=== PATIENT | male | born 1970 | race Caucasian/White ===

== ENCOUNTER 2020-05-25 13:36 | Emergency (ER) | payer OTHER, SELFPAY ==
[2020-05-25] VITALS (28 sets, daily range): BP systolic 125–184; BP diastolic 77–118; PULSE 88–129; RESP 0–20; TEMP 36.7; O2SAT 93–99
--- NOTE | ~2020-05-25 | XR_ITS ---
EXAMINATION: XR chest 1V portable DATE: 05/25/2020 14:09 INDICATION: Chest pain. TECHNIQUE: A single frontal view of the chest was obtained. COMPARISON: Chest 2 views 06/12/2019, chest CT 09/16/2017 FINDINGS: The chest demonstrates clear lungs without pneumonia, pleural effusion, or pneumothorax. Th e heart size is normal. IMPRESSION: 1. No acute cardiopulmonary disease. Reviewed, dictated and finalized at location A.
--- NOTE | ~2020-05-25 | CT_ITS ---
EXAMINATION: CTA chest PE protocol DATE: 05/25/2020 15:26 INDICATION: Chest pain. TECHNIQUE: Computed tomography (CT) pulmonary angiogram of the chest was performed with 100 mL Omnipa que-350 intravenous contrast. Additional 3D reconstructions utilizing coronal maximum intensity proje ction (MIP) were performed. Automated exposure control and iterative reconstruction technique were em ployed. The dose-length product was 683.65 mGy-cm. COMPARISON: 09/16/2017 FINDINGS: There is mild streak artifact from dense contrast in the superior vena cava, right atrium and some of the more densely opacified pulmonary veins, the latter resulting in streak artifact at the bifurcati ons of the left and right pulmonary arteries. Mild scattered respiratory motion artifact. Suboptimal contrast opacification of the pulmonary arteries which significantly decreases sensitivity in the seg mental and subsegmental pulmonary arteries. No central pulmonary embolism through the lobar pulmonary arteries. Small calcified nodule at the right lower lobe along with a couple small calcified right h ilar and mediastinal lymph nodes and a few splenic calcifications, all consistent with old granulomat ous disease. No pneumonia, pulmonary edema, pleural effusion or pneumothorax. Heart size is normal. A therosclerotic coronary artery calcification. No pericardial effusion. Thoracic aorta is normal in ca liber with no dissection. No pathologically enlarged thoracic lymphadenopathy. Likely benign 6 mm hyp odense right thyroid nodule. 2.8 cm right renal cyst. Diffuse hepatic steatosis. Moderate thoracic sp ondylosis. IMPRESSION: 1. No central pulmonary embolism through the lobar pulmonary arteries. More peripheral evaluation is limited by suboptimal contrast opacification. 2. Diffuse hepatic steatosis. Reviewed, dictated and finalized at location B. IMPRESSION: 1. No central pulmonary embolism through the lobar pulmonary arteries. More per ipheral evaluation is limited by suboptimal contrast opacification. 2. Diffuse hepatic steatosis.
--- NOTE | 2020-05-25 13:43 | ECG_ITS ---
Measurements Intervals [place] Rate: 125 P: 53 CT: 153 QRS: 15 QRSD: 90 T: 33 QT: 308 QTc: 444 Interpretive Statements SINUS TACHYCARDIA DELAYED PRECORDIAL R/S TRANSITION ABNORMAL ECG Electronically Signed On 05-25-2020 14:12:42 CDT by Ed Kulkarni D.O.
--- NOTE | 2020-05-25 13:44 | ED.GENADULT ---
HPI - General Adult General Chief complaint: Alcohol Stated complaint: concerned having sz Source: patient History of Present Illness HPI narrative: Patient is a 50 y/o male complaining midsternal chest pain starting approximately 30 minutes ago. He describes his pain as throbbing and rates it as 7/10. His pain radiates to left arm. There is no known alleviating or exacerbating factor. He has some dizziness, but denies passing out. He admit that he has been drinking heavily. He is concerned about possible withdrawal. Related Data Home Medications Medication Instructions Recorded Confirmed bupropion HCl 150 mg PO BID 06/12/19 06/12/19 quetiapine 400 mg PO HS 06/12/19 06/12/19 Allergies Allergy/AdvReac Type Severity Reaction Status Date / Time Penicillins Allergy Unknown Verified 06/12/19 00:50 Review of Systems Constitutional: Constitutional: Denies chills, Denies fever(s), Denies headache(s) and Denies weakness Eyes: Eyes: Denies blurry vision ENT: Denies headache(s) and Denies neck pain Cardiovascular: Cardiovascular: Reports chest pain and Denies dyspnea Respiratory: Respiratory: Denies cough and Denies dyspnea Gastrointestinal: Gastrointestinal: Denies abdominal pain, Denies diarrhea, Denies nausea and Denies vomiting Genitourinary: Genitourinary: Denies hematuria and Denies dysuria Musculoskeletal: Musculoskeletal: Denies back pain and Denies neck pain Neurologic: Reports dizziness, Denies headache(s) and Denies weakness PMFSH Past Medical History Medical History Alcohol withdrawal seizure Anxiety Depression HTN (hypertension) with goal to be determined Seasonal allergies Surgical History Surgical History H/O adenoidectomy History of appendectomy History of tonsillectomy Family History Family History Father Heart disease Mother Heart disease Social History Social History Smoking packs per day: 0.5 Smoking cigarettes per day: 10.0 Smoking status: Current every day smoker Alcohol intake: current Substance use: never Exam Const: General: no acute distress and well developed Orientation/consciousness: oriented to person, oriented to place, oriented to time and patient oriented x3 HENMT: Head: normocephalic Ears: external ears normal General nose exam: Normal external nose present Eyes: General: appearance normal, both eyes and all related structures Conjunctivae: conjunctivae normal Neck: Neck: normal visual inspection and full ROM Chest: Chest palpation & inspection: normal inspection of the chest and no tenderness Resp: Effort & Inspection: normal respiratory effort Auscultation: clear to auscultation bilaterally Cardio: Rate: tachycardic Rhythm: regular rhythm GI: GI Palp: No abdominal tenderness and Yes Soft to palpation Skin: General skin exam: normal color and turgor normal Neuro: General: oriented to person, oriented to place, oriented to time and patient oriented x3 Cognition (Neuro): normal cognition Extrem: General: normal to inspection, full ROM and no pedal edema Psych: Appearance: grossly normal Mental Status: mental status grossly normal Affect: Anxious affect present Course Vital Signs Vital signs: Vital Signs Temperature 36.7 C 05/25/20 13:41 Pulse Rate 126 H 05/25/20 13:41 Respiratory Rate 18 05/25/20 13:41 Blood Pressure 167/118 H 05/25/20 13:41 Pulse Oximetry 94 05/25/20 13:41 Temperature 36.7 C 05/25/20 13:41 Pulse Rate 88 05/25/20 18:57 Respiratory Rate 14 05/25/20 18:57 Blood Pressure 152/87 H 05/25/20 18:57 Pulse Oximetry 99 05/25/20 18:57 Medical Decision Making Vital Signs Vital Signs: Vital Signs Temperature 36.7 C 05/25/20 13:41 Pulse Rate 126 H 05/25/20 13:41 Respirato
[2020-05-25 14:06] LABS: Basophils Absolute Auto 0.1 K/mm3 (0.0-0.1); Basophils Percent Auto 1.2 % (0.2-1.2); Eosinophils Percent Auto 0.2 % (0-4.4); Hematocrit 49.9 % (42.0-52.0); Hemoglobin 17.1 g/dL (14.0-18.0); Immature Granulocyte Absolute 0.05 K/mm3 (0.00-0.031); Immature Granulocyte Percent A 0.4 % (0-0.5); Lymphocytes Absolute Auto 2.42 K/mm3 (0.9-3.2); Lymphocytes Percent Auto 21.5 % (18.3-44.2); Mean Corpuscular HGB Conc 34.3 g/dl (32-36); Mean Corpuscular Hemoglobin 33.7 pg (26-34); Mean Corpuscular Volume 98.4 fl (80-100); Mean Platelet Volume 11.2 fl (7.4-10.4); Monocytes Absolute Auto 0.9 K/mm3 (0.1-0.6); Monocytes Percent Auto 8.1 % (2.6-8.5); Neutrophils Absolute Auto 7.8 K/mm3 (1.3-6.7); Neutrophils Percent Auto 68.6 % (45.5-73.1); Platelet Count Result 320 k/mm3 (150-375); Red Blood Count 5.07 M/mm3 (4.6-6.20); Red Cell Distribution Width 12.2 % (11.5-14.5); White Blood Count 11.3 K/mm3 (4.5-10.0)
[2020-05-25] MEDS: chlordiazePOXIDE (*CRX) 25 MG CAPSULE PO (14:12)
[2020-05-25 14:15] LABS: Alanine Aminotransferase 98 U/L (4-50); Albumin Level 5.2 g/dL (3.5-5.1); Alkaline Phosphatase 87 U/L (38-126); Anion Gap 18 mmol/L (8-16); Aspartate Amino Transferase 101 U/L (17-59); Bilirubin,Total 0.6 mg/dL (0.2-1.3); Blood Urea Nitrogen 10 mg/dL (9-20); Calcium 9.6 mg/dL (8.4-10.2); Carbon Dioxide 25 mmol/L (22-30); Chloride 101 mmol/L (98-107); Estimated CRCL calculation 126 ml/min; Estimated Glomerular Filt Rate > 60; Glucose 182 mg/dL (75-110); Potassium 3.7 mmol/L (3.4-5.0); Sodium 144 mmol/L (137-145)
[2020-05-25 14:16] LABS: D Dimer 0.82 ug/mL (<0.48); Ethanol 264 mg/dL (<10)
[2020-05-25 14:27] LABS: Troponin I < 0.012 ng/mL (0.000-0.034)
[2020-05-25 17:26] LABS: Troponin I < 0.012 ng/mL (0.000-0.034)
[2020-05-25] MEDS: cloNIDine HCL 0.1 MG TABLET PO (17:31)
[2020-05-25] MEDS: LABETALOL HCL INJ 100 MG/20 ML VIAL 20 MG IV PUSH (18:27)
== END 2020-05-25 19:00 | disposition home or self-care (01) ==
PROVIDERS: Emergency Provider Emergency Medicine
DX: R07.9 Chest pain, unspecified (principal); F10.239 Alcohol dependence with withdrawal, unspecified; R00.0 Tachycardia, unspecified; F41.9 Anxiety disorder, unspecified; F32.9 Major depressive disorder, single episode, unspecified; I10 Essential (primary) hypertension; Y90.8 Blood alcohol level of 240 mg/100 ml or more; F17.210 Nicotine dependence, cigarettes, uncomplicated
CPT/HCPCS: 36415; 71045; 71275; 80053; 80307; 84484; 85025; 85380; 93005; 96374; 99284; A9270; Q9967

== ENCOUNTER 2020-05-28 13:26 | Emergency (ER) | payer OTHER, SELFPAY ==
--- NOTE | ~2020-05-28 | XR_ITS ---
EXAMINATION: XR chest 2V DATE: 05/28/2020 14:18 INDICATION: Chest pain. TECHNIQUE: Frontal and lateral views of the chest were obtained. COMPARISON: Chest single view 05/25/2020, chest CT 05/25/2020 FINDINGS: The chest demonstrates clear lungs without pneumonia, pleural effusion, or pneumothorax. Th e heart size is normal. IMPRESSION: 1. No acute cardiopulmonary disease. Reviewed, dictated and finalized at location A.
--- NOTE | 2020-05-28 13:36 | ECG_ITS ---
Measurements Intervals [place] Rate: 128 P: 39 [place]: 142 QRS: 18 QRSD: 89 T: 30 QT: 308 QTc: 450 Interpretive Statements SINUS TACHYCARDIA DELAYED PRECORDIAL R/S TRANSITION ABNORMAL ECG Electronically Signed On 05-28-2020 13:50:30 CDT by Ed Kulkarni D.O.
[2020-05-28] MEDS: BELLADONNA ALK/PHENOB ELIX 10 ML, MAG HYDROX/ALUMINUM HYD/SIMETH 30 ML, LIDOCAINE HCL 2... PO (13:51)
[2020-05-28 14:06] VITALS: BP 136/67; PULSE 70; RESP 17; TEMP 37; O2SAT 100
[2020-05-28] MEDS: SODIUM CHLORIDE 0.9% IV 1,000 ML 999 ML IV CONT (14:12)
--- NOTE | 2020-05-28 15:04 | PC.NURSE ---
2 ED techs attempted to draw pts blood . LAb was notified and states that it will be awhile . Informed charge nurse Francesca of this.
[2020-05-28 15:23] LABS: Basophils Absolute Auto 0.1 K/mm3 (0.0-0.1); Basophils Percent Auto 1.2 % (0.2-1.2); Eosinophils Absolute Auto 0.1 K/mm3 (0-0.3); Hematocrit 47.9 % (42.0-52.0); Hemoglobin 16.6 g/dL (14.0-18.0); Immature Granulocyte Absolute 0.04 K/mm3 (0.00-0.031); Immature Granulocyte Percent A 0.4 % (0-0.5); Lymphocytes Absolute Auto 2.54 K/mm3 (0.9-3.2); Lymphocytes Percent Auto 24.1 % (18.3-44.2); Mean Corpuscular HGB Conc 34.7 g/dl (32-36); Mean Corpuscular Hemoglobin 33.3 pg (26-34); Mean Platelet Volume 10.5 fl (7.4-10.4); Monocytes Percent Auto 9.2 % (2.6-8.5); Neutrophils Absolute Auto 6.7 K/mm3 (1.3-6.7); Neutrophils Percent Auto 64.1 % (45.5-73.1); Platelet Count Result 256 k/mm3 (150-375); Red Blood Count 4.99 M/mm3 (4.6-6.20); Red Cell Distribution Width 11.9 % (11.5-14.5); White Blood Count 10.5 K/mm3 (4.5-10.0)
[2020-05-28 15:33] LABS: INR 0.9
[2020-05-28 15:34] LABS: Partial Thromboplastin Time 25.1 SECONDS (22.3-36.8)
[2020-05-28 15:35] LABS: Alanine Aminotransferase 120 U/L (4-50); Albumin Level 4.9 g/dL (3.5-5.1); Alkaline Phosphatase 95 U/L (38-126); Anion Gap 19 mmol/L (8-16); Aspartate Amino Transferase 118 U/L (17-59); Bilirubin,Total 0.5 mg/dL (0.2-1.3); Blood Urea Nitrogen 9 mg/dL (9-20); Carbon Dioxide 28 mmol/L (22-30); Chloride 94 mmol/L (98-107); Estimated CRCL calculation 114 ml/min; Estimated Glomerular Filt Rate > 60; Glucose 92 mg/dL (75-110); Lipase 46 U/L (23-300); Potassium 3.4 mmol/L (3.4-5.0); Sodium 141 mmol/L (137-145)
[2020-05-28 15:36] LABS: Ethanol 290 mg/dL (<10)
[2020-05-28 15:46] LABS: Troponin I < 0.012 ng/mL (0.000-0.034)
--- NOTE | 2020-05-28 16:12 | ED.CHESTPAIN ---
HPI - Chest Pain General Chief Complaint: Chest Pain Stated Complaint: CP Time Seen by Provider: 05/28/20 13:26 History of Present Illness HPI narrative: Patient is a 50-year-old male who presents to the ER with chest pain. Reports she is drinking alcohol when he started to feel this discomfort in his central chest. No radiation. This happens every time he drinks alcohol. Unsure if it is related to acid reflux. Was seen here for similar symptoms 2 days ago. Denies any abdominal symptoms. At that time he was discharged with librium. Related Data Home Medications Medication Instructions Recorded Confirmed bupropion HCl 150 mg PO BID 06/12/19 06/12/19 quetiapine 400 mg PO HS 06/12/19 06/12/19 Allergies Allergy/AdvReac Type Severity Reaction Status Date / Time Penicillins Allergy Unknown Unknown Verified 05/28/20 14:11 Review of Systems Review of Systems: All systems reviewed & are unremarkable except as noted in HPI and below Constitutional: Constitutional: Denies body ache(s) and Denies chills ENT: Denies sinus pressure and Denies sore throat Cardiovascular: Cardiovascular: Reports chest pain and Denies dyspnea Psychiatric: Psychiatric: Reports anxiety PMFSH Past Medical History Medical History Alcohol withdrawal seizure Anxiety Depression HTN (hypertension) with goal to be determined Seasonal allergies Surgical History Surgical History H/O adenoidectomy History of appendectomy History of tonsillectomy Family History Family History Father Heart disease Mother Heart disease Social History Social History Smoking packs per day: 0.5 Smoking cigarettes per day: 10.0 Smoking status: Current every day smoker Alcohol intake: current Substance use: never Exam Narrative: Exam Narrative: GENERAL: Anxious/intoxicated-appearing, well-nourished, and in no acute distress. HEAD: Normocephalic, atraumatic. ENT: Mucous membranes moist. CHEST: Clear to auscultation. No respiratory distress. HEART: Tachycardic and regular. Normal peripheral pulses. ABDOMEN: Soft, nontender, nondistended. EXTREMITIES: Normal range of motion. No edema. SKIN: Warm, dry, no rash. NEURO: Alert and oriented x3. PSYCH: Anxious mood/affect. Course Course Emergency Course: Patient informed of results. Acutely intoxicated. No tremors. Patient request that he stay here for alcohol detox. Reports that some something that was offered here. He is not actively detoxing and is actively intoxicated. CTA of chest negative 2 days ago. Recommend he take his Librium that was prescribed. Patient felt she will take a cab home. Vital Signs Vital signs: Vital Signs Temperature 98.6 F 05/28/20 14:06 Pulse Rate 70 05/28/20 14:06 Respiratory Rate 17 05/28/20 14:06 Blood Pressure 136/67 05/28/20 14:06 Pulse Oximetry 100 05/28/20 14:06 Temperature 98.6 F 05/28/20 14:06 Pulse Rate 70 05/28/20 14:06 Respiratory Rate 17 05/28/20 14:06 Blood Pressure 136/67 05/28/20 14:06 Pulse Oximetry 100 05/28/20 14:06 MDM - Chest Pain Lab Data Result diagrams: 05/28/20 15:14 05/28/20 15:14 Labs: Lab Results 05/28/20 05/28/20 05/28/20 Range/Units 15:14 15:14 15:14 WBC 10.5 H (4.5-10.0) K/mm3 RBC 4.99 (4.6-6.20) M/mm3 Hgb 16.6 (14.0-18.0) g/dL Hct 47.9 (42.0-52.0) % MCV 96.0 (80-100) fl MCH 33.3 (26-34) pg MCHC 34.7 (32-36) g/dl RDW 11.9 (11.5-14.5) % Plt Count 256 (150-375) k/mm3 MPV 10.5 H (7.4-10.4) fl Immature Gran % (Auto) 0.4 (0-0.5) % Neut % (Auto) 64.1 (45.5-73.1) % Lymph % (Auto) 24.1 (18.3-44.2) % [place] % (Auto) 9.2 H (2.6-8.5) % Eos % (Auto) 1.0 (0-4.4) % Baso % (Auto) 1.2
== END 2020-05-28 17:01 | disposition home or self-care (01) ==
PROVIDERS: Emergency Provider Emergency Medicine
DX: F10.129 Alcohol abuse with intoxication, unspecified (principal); Y90.8 Blood alcohol level of 240 mg/100 ml or more; F41.9 Anxiety disorder, unspecified; F32.9 Major depressive disorder, single episode, unspecified; I10 Essential (primary) hypertension; F17.210 Nicotine dependence, cigarettes, uncomplicated; R00.0 Tachycardia, unspecified; Z79.899 Other long term (current) drug therapy
CPT/HCPCS: 36415; 71046; 80053; 80307; 83690; 84484; 85025; 85610; 85730; 93005; 96360; 99284; A9270; J7030

== ENCOUNTER 2020-06-07 00:29 | Observation (INO) | payer OTHER, SELFPAY ==
[2020-06-07] VITALS (22 sets, daily range): BP systolic 142–227; BP diastolic 87–196; PULSE 83–115; RESP 14–24; TEMP 36.5–37.1; O2SAT 93–100; BMI 38.0
--- NOTE | ~2020-06-07 | XR_ITS ---
XR chest 1V portable DATE: 06/07/2020 00:59 INDICATION: Left-sided chest pain TECHNIQUE: Portable AP chest on 06/07/2020 at 0057 hours COMPARISON: 05/28/2020 AP and lateral chest FINDINGS: Normal heart size. No hilar or mediastinal enlargement. No pulmonary infiltrate or consolid ation, pleural effusion or pulmonary vascular congestion or pneumothorax is detected. IMPRESSION: No active cardiopulmonary disease Reviewed, dictated and finalized at location A.
--- NOTE | ~2020-06-07 | CT_ITS ---
EXAMINATION: CT brain wo con DATE: 06/07/2020 00:55 INDICATION: Seizure, fall. Left frontal injury TECHNIQUE: Computed tomography (CT) of the head was performed without intravenous contrast. The mA wa s adjusted according to patient size. Iterative reconstruction technique was employed. Exam dose: 60 5.33 mGy-cm total exam DLP. COMPARISON: 12/1017 CT brain FINDINGS: No intracranial mass lesion or hemorrhage, midline shift or mass effect or evidence of rece nt or chronic cerebrovascular accident. No subdural or epidural hematoma. The orbital contents are un remarkable. No fracture or bone destruction of the cranial vault. There is evidence of bilateral nasal antral window nodes. There is minimal mucoperiosteal thickening of the maxillary sinuses. The mastoid air cells are normally developed and aerated. IMPRESSION: No skull fracture or acute intracranial finding Reviewed, dictated and finalized at [facility]. Reviewed, dictated and finalized at location A.
--- NOTE | ~2020-06-07 | CT_ITS ---
EXAMINATION: CTA chest PE protocol DATE: 06/07/2020 02:45 INDICATION: Chest pain TECHNIQUE: Computed tomography angiography (CTA) of the chest was performed with 100 mL Omnipaque-350 intravenous contrast timed to evaluate the pulmonary arteries. Coronal maximum intensity projection 3D-reconstructions were created by the technologist. Automated exposure control and iterative reconst ruction technique were employed. Exam dose: 569.32 mGy-cm total exam DLP. COMPARISON: 05/25/2020 CT pulmonary scan 05/28/2022 view chest 06/07/2020 portable AP chest at 0057 hours FINDINGS: 6 mm hypoenhancing right thyroid lobe lesion. Normal heart size. No pericardial effusion. Coronary artery calcification. Ascending aorta measures up to 3.9 cm diameter. Aortic arch measures approximately 3.1 cm diameter. D escending thoracic aorta measures approximately 2.5 cm diameter. No thoracic aortic dissection is not ed. No hilar or mediastinal mass lesion or lymphadenopathy. Calcified right hilar nodes, consistent with old pulmonary granulomatous disease. Occasional calcifie d splenic granulomas. There is no evidence of pulmonary embolism. 2.8 cm right renal cyst. The adrenal glands are unremarkable. Diffuse hepatic steatosis Small hiatal hernia. Mild anterior wedge compression fracture deformity of T4, chronic. Degenerative spurring of the thora cic spine. IMPRESSION: No evidence of pulmonary embolism Mild thoracic aortic aneurysm; no evidence of aortic dissection Hepatic steatosis Reviewed, dictated and finalized at [facility]. Reviewed, dictated and finalized at location A.
--- NOTE | 2020-06-07 00:37 | ECG_ITS ---
Measurements Intervals [place] Rate: 110 P: 68 [place]: 159 QRS: 9 QRSD: 98 T: 33 QT: 317 QTc: 429 Interpretive Statements SINUS TACHYCARDIA BASELINE ARTIFACT- I, III, AVL, AVF ABNORMAL ECG Electronically Signed On 06-07-2020 7:04:59 CDT by Ed Kulkarni D.O.
--- NOTE | 2020-06-07 00:40 | ED.GENADULT ---
HPI - General Adult General Chief complaint: Chest Pain Stated complaint: CP History of Present Illness HPI narrative: Patient presents to emergency department from home via EMS for chest pain. Patient states that approximate 1 hour prior to arrival he began to feel jittery and twitchy and then believes he had a seizure as he states he was then on the ground. He does believe he lost consciousness he will denies any bowel or bladder incontinence. Patient states he does have a history of alcohol to intoxication and just recently finished rehabbing at the [facility] but began to drink again after that. Patient states he drinks approximately a pint a day. States his chest pain is over the midsternal chest and does not radiate he is unsure if is related to the fall but occurred after he was on the ground. He states that he did hit his head and does have a headache at this time as well. He denies any vision changes nausea vomiting diarrhea or any other symptoms he does note mild shortness of breath Related Data Home Medications Medication Instructions Recorded Confirmed bupropion HCl 150 mg PO BID 06/12/19 06/12/19 quetiapine 400 mg PO HS 06/12/19 06/12/19 Allergies Allergy/AdvReac Type Severity Reaction Status Date / Time Penicillins Allergy Unknown Unknown Verified 05/28/20 14:11 Review of Systems Review of Systems: Narrative: Gen.: Denies fevers or chills Eyes: Denies eye pain or visual change ENT: Denies congestion Respiratory: Denies shortness of breath or cough CV: See HPI GI: Denies abdominal pain nausea, emesis or diarrhea denies burning, urgency, frequency or hematuria Musculoskeletal: Denies back pain or muscle pain Neuro: Denies numbness, tingling, weakness or focal weakness Skin: Denies rash Except as documented, all other systems reviewed and negative [facility] Past Medical History Medical History Alcohol withdrawal seizure Anxiety Depression HTN (hypertension) with goal to be determined Seasonal allergies Surgical History Surgical History H/O adenoidectomy History of appendectomy History of tonsillectomy Family History Family History Father Heart disease Mother Heart disease Social History Social History Smoking packs per day: 0.5 Smoking cigarettes per day: 10.0 Smoking status: Current every day smoker Alcohol intake: current Substance use: never Exam Narrative: Exam Narrative: APPEARANCE: No acute distress, nontoxic, resting in bed EYES: EOMI, PERRL HEENT: Normocephalic, atraumatic, OMM RESPIRATORY: No respiratory distress Clear to auscultation bilaterally with no rhonchi wheezing or rales. CARDIOVASCULAR: Regular rate and rhythm without murmurs rubs or gallops. Chest: Tender palpation over the lower midsternal chest wall no swelling or ecchymosis pain increased with deep inspiration ABDOMINAL: Soft, nontender, nondistended, no rebound or guarding MUSCULOSKELETAl: Moves all extremities. No clubbing, cyanosis or edema. NEURO: Awake and alert x 3. Following commands, speech normal, no focal deficits SKIN:: Warm, dry. No rashes lesions or abrasions PSYCHIATRIC: Normal affect/mood, Course Course Emergency Course: Reviewed old records. Per patient history of alcohol withdrawal seizures in the past Patient [facility]. Called and discussed with Dr. Soto [facility] who accepts the patient. At this time the patient is required to have a negative Covid swab prior to being [facility] the [facility]. This time a Covid swab was obtained concerned that the patient has had episodes of alcohol withdrawal requiring ICU admission performed past concern that Covid swab will not be returned for the next 12 to 24 hours and will admit for observation until
[2020-06-07] MEDS: SODIUM CHLORIDE 0.9% IV 1,000 ML 999 ML IV CONT (01:00)
[2020-06-07] MEDS: THIAMINE HCL 200 MG/2 ML VIAL 100 MG IV PUSH (01:27)
[2020-06-07 01:43] LABS: Basophils Absolute Auto 0.1 K/mm3 (0.0-0.1); Basophils Percent Auto 1.2 % (0.2-1.2); Eosinophils Absolute Auto 0.1 K/mm3 (0-0.3); Hematocrit 45.8 % (42.0-52.0); Hemoglobin 15.5 g/dL (14.0-18.0); Immature Granulocyte Absolute 0.03 K/mm3 (0.00-0.031); Immature Granulocyte Percent A 0.5 % (0-0.5); Lymphocytes Absolute Auto 2.03 K/mm3 (0.9-3.2); Lymphocytes Percent Auto 33.8 % (18.3-44.2); Mean Corpuscular HGB Conc 33.8 g/dl (32-36); Mean Corpuscular Hemoglobin 34.3 pg (26-34); Mean Corpuscular Volume 101.3 fl (80-100); Mean Platelet Volume 9.3 fl (7.4-10.4); Monocytes Absolute Auto 0.8 K/mm3 (0.1-0.6); Monocytes Percent Auto 13.1 % (2.6-8.5); Neutrophils Percent Auto 50.4 % (45.5-73.1); Platelet Count Result 252 k/mm3 (150-375); Red Blood Count 4.52 M/mm3 (4.6-6.20); Red Cell Distribution Width 12.8 % (11.5-14.5)
[2020-06-07 01:53] LABS: Prothrombin Time 12.8 Seconds (11.1-14.7)
[2020-06-07 01:54] LABS: Partial Thromboplastin Time 25.7 SECONDS (22.3-36.8)
[2020-06-07 01:56] LABS: Alanine Aminotransferase 258 U/L (4-50); Albumin Level 4.3 g/dL (3.5-5.1); Alkaline Phosphatase 68 U/L (38-126); Anion Gap 11 mmol/L (8-16); Aspartate Amino Transferase 249 U/L (17-59); Bilirubin,Total 0.4 mg/dL (0.2-1.3); Blood Urea Nitrogen 7 mg/dL (9-20); Calcium 8.4 mg/dL (8.4-10.2); Carbon Dioxide 29 mmol/L (22-30); Chloride 107 mmol/L (98-107); Estimated Glomerular Filt Rate > 60; Glucose 95 mg/dL (75-110); Lipase 42 U/L (23-300); Potassium 4.2 mmol/L (3.4-5.0); Sodium 147 mmol/L (137-145)
--- NOTE | 2020-06-07 01:59 | PC.NURSE ---
Pt c/o visual hallucinations stating that he sees people attacking him. Pt told he is safe and reorientated that he is in the Emergency Department. Pt crying and verbalizing that he is scared. MD Lebron updated that pt is having visual hallucinations and is crying. MD verbalized understanding and gave no new orders at this time. MD stated he would go assess pt shortly. RN will continue to monitor.
[2020-06-07 02:07] LABS: Troponin I < 0.012 ng/mL (0.000-0.034)
[2020-06-07 02:16] LABS: Ethanol 301 mg/dL (<10)
[2020-06-07] MEDS: KETOROLAC 30 MG/ML VIAL (*BKC) IV PUSH (02:52)
[2020-06-07 04:16] LABS: Troponin I < 0.012 ng/mL (0.000-0.034)
--- NOTE | 2020-06-07 04:56 | ADMGEN ---
This patient, Bryce Sandhu, was admitted to Intensive Care Unit-1. Patient/family oriented to hospital policies and general routines including ID bracelet, bed and alarms, visiting hours, pain management, procedures, bathroom and other care routines, personal items, smoking policy, room service/diet, and visiting hours. Information on how to activate the Rapid Response Team has been discussed. Patient/Family are encouraged to report perceived risks to care and to ask questions if they do not understand what they are told or what they should do.
[2020-06-07] MEDS: SODIUM CHLORIDE 0.9% IV 1,000 ML 125 ML IV CONT (05:47)
[2020-06-07] MEDS: LORazepam INJ (*CRX) 2 MG/ML VIAL 1 MG IV PUSH ×4 (05:55→22:41)
[2020-06-07 06:46] LABS: Troponin I < 0.012 ng/mL (0.000-0.034)
[2020-06-07] MEDS: chlordiazePOXIDE (*CRX) 25 MG CAPSULE 50 MG PO (07:21)
[2020-06-07 07:37] LABS: Basophils Absolute Auto 0.1 K/mm3 (0.0-0.1); Basophils Percent Auto 1.1 % (0.2-1.2); Eosinophils Absolute Auto 0.1 K/mm3 (0-0.3); Eosinophils Percent Auto 1.6 % (0-4.4); Hematocrit 44.3 % (42.0-52.0); Immature Granulocyte Absolute 0.05 K/mm3 (0.00-0.031); Immature Granulocyte Percent A 0.6 % (0-0.5); Lymphocytes Absolute Auto 2.28 K/mm3 (0.9-3.2); Lymphocytes Percent Auto 28.4 % (18.3-44.2); Mean Corpuscular HGB Conc 33.9 g/dl (32-36); Mean Corpuscular Hemoglobin 34.2 pg (26-34); Mean Corpuscular Volume 101.1 fl (80-100); Mean Platelet Volume 9.4 fl (7.4-10.4); Monocytes Absolute Auto 1.1 K/mm3 (0.1-0.6); Monocytes Percent Auto 13.7 % (2.6-8.5); Neutrophils Absolute Auto 4.4 K/mm3 (1.3-6.7); Neutrophils Percent Auto 54.6 % (45.5-73.1); Platelet Count Result 236 k/mm3 (150-375); Red Blood Count 4.38 M/mm3 (4.6-6.20); Red Cell Distribution Width 12.8 % (11.5-14.5)
[2020-06-07 07:49] LABS: Anion Gap 12 mmol/L (8-16); Blood Urea Nitrogen 6 mg/dL (9-20); Calcium 8.2 mg/dL (8.4-10.2); Carbon Dioxide 27 mmol/L (22-30); Chloride 103 mmol/L (98-107); Estimated CRCL calculation 125 ml/min; Estimated Glomerular Filt Rate > 60; Glucose 83 mg/dL (75-110); Magnesium 1.8 mg/dL (1.6-2.3); Potassium 3.7 mmol/L (3.4-5.0); Sodium 142 mmol/L (137-145)
[2020-06-07] MEDS: ACETAMINOPHEN 325 MG TABLET 650 MG PO (10:29)
[2020-06-07 11:16] LABS: SARS-CoV-2 RNA PCR Negative
[2020-06-07 11:59] LABS: Glucose Point of Care 76 (65-105)
[2020-06-07] MEDS: chlordiazePOXIDE (*CRX) 25 MG CAPSULE PO ×2 (12:57→18:29)
--- NOTE | 2020-06-07 13:31 | WPDCNINT ---
Assessment and Plan Assessment and plan (1) Alcohol withdrawal: Code(s): F10.239 - Alcohol dependence with withdrawal, unspecified Status: Acute Assessment and Plan: [facility] monitoring schedule Librium and p.r.n. Ativan as per CIWA score thiamine and folic acid IV fluids (2) Alcohol intoxication: Code(s): F10.929 - Alcohol use, unspecified with intoxication, unspecified Status: Acute Assessment and Plan: patient presented with alcohol intoxication but now appears to have tremor suggestive of mild withdrawal received IV fluids (3) Suspected COVID-19 virus infection: Code(s): Z20.828 - Contact with and (suspected) exposure to other viral communicable diseases Status: Acute Assessment and Plan: COVID-19 suspected. SARS-CoV-2 PCR sent and results pending Patient is in Airborne, Droplet and Contact Isolation (4) Seizure: Code(s): R56.9 - Unspecified convulsions Status: Acute Assessment and Plan: history of alcohol withdrawal seizures but no witnessed event this time no seizure episodes since arrival to hospital p.r.n. Ativan seizure precautions (5) Essential hypertension: Code(s): I10 - Essential (primary) hypertension Status: Acute Assessment and Plan: start p.o. beta-quinton p.r.n. IV Lopressor (6) Elevated transaminase level: Code(s): R74.01 - Elevation of levels of liver transaminase levels Status: Acute Assessment and Plan: likely secondary to alcoholic steatosis as evident from CT which showed diffuse hepatic steatosis. monitor levels (7) Fall: Code(s): W19.XXXA - Unspecified fall, initial encounter Status: Acute Assessment and Plan: most likely secondary to alcohol intoxication. Head CT was negative exam nonfocal (8) Chest pain: Code(s): R07.9 - Chest pain, unspecified Status: Acute Assessment and Plan: troponin x3 negative CTA chest negative EKG showed only sinus tachycardia resolved at this time. Monitor Additional Plan DVT prophylaxis patient awaits transfer to [facility] for alcohol withdrawal rehab. They want and negative COVID test before accepting the patient. Regular diet Transfer out of ICU today unless patient gets transferred to 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 patient told me that he was sober for 11 months and for last 1 week he started drinking alcohol again heavily. He drinks 1 pt of vodka every day for last 7 days. Patient told me that yesterday he tripped on the side of bed and fell and hit his head. He thinks he lost consciousness for little bit. He told me that he may have had a seizure although he is not sure there was no witness. Patient also smokes half-pack per day cigarettes. patient told me that he has had alcohol withdrawal in the past and had jitters, tremors seizure. He feels that he is now going through withdrawal cane and feels restless and jittery. In ER patient was evaluated for PE and CT a was negative. He was admitted for alcohol withdrawal. He was accepted by [facility] as he is a but transfers with delayed because of pending COVID-19 PCR test results which was requested by [facility]. Patient was admitted to ICU for further monitoring and management. This morning when I saw the patient he feels better but still feels that he is having tremors and anxiety.. He denied any fever, shortness of breath, cough, body aches, contact with sick or anyone diagnosed with COVID-19. He also denies any change in sensation of taste or smell. Patient denies chest pain, nausea vomiting, abdominal pain, diarrhea, headache or constipation. Review of system was positive for mild headache , tremors in his h
[2020-06-07] MEDS: LABETALOL HCL 50 MG TABLET PO ×2 (14:33→20:26)
[2020-06-07] MEDS: LOPERAMIDE HCL 2 MG CAPSULE PO (14:33)
[2020-06-07] MEDS: METOPROLOL TARTRATE INJ 5 MG/5 ML VIAL IV PUSH ×2 (16:02→21:34)
[2020-06-07] MEDS: LORazepam (*CRX) 1 MG TABLET PO (16:02)
--- NOTE | 2020-06-07 17:43 | PM.IMHP ---
H&P: HPI History of Present Illness Date/Time: 06/07/20 17:43 Chief complaint: seizure, chest pain, alcohol intoxication Narrative: Bryce Sandhu is a 50 year old male male with history of alcohol abuse patient states the went through alcohol rehab and the hospital and was sober for 11 months however for last 2 weeks he restarted to drinking alcohol and has been drinking have about 1 pt per day he presented emergency department after he fell at home and struck his chest, presented with complaint of chest CT scan of the chest did not show any acute injury or PE, patient is admitted for alcohol withdrawal and placed on CIWA protocol to prevent DT, patient has been accepted at the [facility] pending COVID-19 for transferring the patient, currently patient states the chest pain has improved denies any palpitation fever or chills, were he is tremulous Review of Systems Review of Systems: All systems reviewed & are unremarkable except as noted in HPI and below PMFSH Past Medical History Medical History Alcohol withdrawal seizure Anxiety Depression HTN (hypertension) with goal to be determined Seasonal allergies Surgical History Surgical History H/O adenoidectomy History of appendectomy History of tonsillectomy Family History Family History Father Heart disease Mother Heart disease Social History Social History Smoking packs per day: 0.5 Smoking cigarettes per day: 10.0 Years smoked: 20 Smoking pack-years: 10.00 Smoking status: Current every day smoker Tobacco type: cigarettes Alcohol intake: current Drinks per week: 7 Substance use: never Other substance usage details: stopped drinking for 11 months and started drinking 1 week ago=1 pint/day Last use: 06/06/20 Gender identity (if verbalized by the patient): Male Spiritual care concerns: No Meds Home Medications and Allergies Home Medications Medication Instructions Recorded Confirmed Type bupropion HCl 300 mg PO DAILY 06/12/19 06/07/20 History quetiapine 300 mg PO HS 06/12/19 06/07/20 History omeprazole 20 mg PO DAILY 06/07/20 06/07/20 History Allergies Allergy/AdvReac Type Severity Reaction Status Date / Time Penicillins Allergy Unknown Unknown Verified 05/28/20 14:11 Vital Signs Vital Signs - 24 hr 06/07/20 00:29 06/07/20 00:39 06/07/20 01:30 Temperature 98.4 F Pulse Rate 112 H 113 H 106 H Respiratory Rate 17 16 Blood Pressure 170/107 H 143/97 H Pulse Oximetry 97 96 06/07/20 03:02 06/07/20 03:55 06/07/20 04:25 Temperature Pulse Rate 108 H 102 H 106 H Respiratory Rate 16 18 18 Blood Pressure 142/87 H 142/91 H 149/93 H Pulse Oximetry 98 93 100 06/07/20 04:50 06/07/20 06:00 06/07/20 08:00 Temperature 97.7 F 98.7 F Pulse Rate 108 H 104 H 105 H Respiratory Rate 18 24 H Blood Pressure 159/96 H 167/99 H Pulse Oximetry 99 93 06/07/20 10:00 06/07/20 12:00 06/07/20 14:33 Temperature 98.2 F Pulse Rate 103 H 109 H 115 H Respiratory Rate 24 H 19 Blood Pressure 163/96 H 176/95 H Pulse Oximetry 94 94 06/07/20 16:00 06/07/20 16:02 Temperature 98.3 F Pulse Rate 114 H 111 H Respiratory Rate 19 Blood Pressure 182/109 H Pulse Oximetry 97 Exam Narrative: Exam Narrative: patient appears chronically older than his age and tremulous Patient is comfortable, NAD HEENT: eyes are clear and none icteric LUNGS:CTA HEART: RR S1S2 ABD: BS+, Soft and nontender Lower extremities: no edema SKIN: nonjaundiced Neuro: grossly intact. bilateral upper extremity with fine tremor H&P: Results Labs Labs: Short CBC 06/07/20 06/07/20 Range/Units 01:37 07:28 WBC 6.0 8.0 (4.5-10.0) K/mm3 Hgb 15.5 15.0 (14.0-18.0) g/dL Hct 45.8 44.3 (42.0-52.0) % Plt Count 252 236 (1
[2020-06-07] MEDS: METOPROLOL TARTRATE 25 MG TABLET PO (20:39)
[2020-06-07] MEDS: hydrALAZINE HCL 20 MG/ML VIAL 10 MG IV PUSH (22:59)
[2020-06-08] VITALS (16 sets, daily range): BP systolic 150–205; BP diastolic 76–102; PULSE 77–101; RESP 12–16; TEMP 36.2–37.3; O2SAT 96–99
[2020-06-08] MEDS: chlordiazePOXIDE (*CRX) 25 MG CAPSULE PO ×5 (01:15→23:58)
--- NOTE | 2020-06-08 01:25 | ADMGEN ---
This patient, Bryce Sandhu, was admitted to 3 [facility] Surg Room 304-01. Patient/family oriented to hospital policies and general routines including ID bracelet, bed and alarms, visiting hours, pain management, procedures, bathroom and other care routines, personal items, smoking policy, room service/diet, and visiting hours. Information on how to activate the Rapid Response Team has been discussed. Patient/Family are encouraged to report perceived risks to care and to ask questions if they do not understand what they are told or what they should do.
--- NOTE | 2020-06-08 01:32 | PC.NURSE ---
This patient, Bryce Sandhu, was transferred to [facility] on 06/08/20 at 0120. Personal belongings sent with patient. Report given to QIANA العراقي. Appropriate documentation including seizure precautions sent with patient.
[2020-06-08] MEDS: METOPROLOL TARTRATE INJ 5 MG/5 ML VIAL IV PUSH ×3 (01:44→17:14)
[2020-06-08] MEDS: LOPERAMIDE HCL 2 MG CAPSULE PO ×3 (01:44→18:27)
[2020-06-08 05:48] LABS: Basophils Absolute Auto 0.1 K/mm3 (0.0-0.1); Basophils Percent Auto 1.5 % (0.2-1.2); Eosinophils Absolute Auto 0.2 K/mm3 (0-0.3); Eosinophils Percent Auto 2.4 % (0-4.4); Hematocrit 44.1 % (42.0-52.0); Hemoglobin 14.9 g/dL (14.0-18.0); Immature Granulocyte Absolute 0.02 K/mm3 (0.00-0.031); Immature Granulocyte Percent A 0.3 % (0-0.5); Lymphocytes Absolute Auto 1.51 K/mm3 (0.9-3.2); Lymphocytes Percent Auto 22.6 % (18.3-44.2); Mean Corpuscular HGB Conc 33.8 g/dl (32-36); Mean Corpuscular Volume 100.7 fl (80-100); Mean Platelet Volume 10.1 fl (7.4-10.4); Monocytes Absolute Auto 1.3 K/mm3 (0.1-0.6); Monocytes Percent Auto 19.4 % (2.6-8.5); Neutrophils Absolute Auto 3.6 K/mm3 (1.3-6.7); Neutrophils Percent Auto 53.8 % (45.5-73.1); Platelet Count Result 230 k/mm3 (150-375); Red Blood Count 4.38 M/mm3 (4.6-6.20); Red Cell Distribution Width 12.2 % (11.5-14.5); White Blood Count 6.7 K/mm3 (4.5-10.0)
[2020-06-08 05:58] LABS: Anion Gap 7 mmol/L (8-16); Blood Urea Nitrogen 5 mg/dL (9-20); Calcium 8.7 mg/dL (8.4-10.2); Carbon Dioxide 28 mmol/L (22-30); Chloride 104 mmol/L (98-107); Estimated CRCL calculation 125 ml/min; Estimated Glomerular Filt Rate > 60; Glucose 88 mg/dL (75-110); Potassium 3.5 mmol/L (3.4-5.0); Sodium 139 mmol/L (137-145)
[2020-06-08] MEDS: FOLIC ACID 1 MG TABLET PO (08:13)
[2020-06-08] MEDS: THIAMINE HCL 100 MG TABLET PO (08:14)
[2020-06-08] MEDS: LABETALOL HCL 50 MG TABLET PO ×2 (08:14→20:11)
[2020-06-08] MEDS: METOPROLOL TARTRATE 25 MG TABLET PO ×2 (08:14→20:11)
[2020-06-08] MEDS: ENOXAPARIN 40 MG/0.4 ML SYRINGE SUB-Q (08:15)
[2020-06-08] MEDS: POTASSIUM CHLORIDE 20 MEQ TABLET 40 MEQ PO (10:26)
[2020-06-08] MEDS: lisinopriL 10 MG TABLET PO (17:14)
--- NOTE | 2020-06-08 17:15 | PM.IMPN ---
Progress Note: A&P Assessment and Plan (1) Chest pain: Code(s): R07.9 - Chest pain, unspecified Status: Acute Assessment and Plan: 06/08/20 17:15 Bryce Sandhu is a 50 year old male male with history of alcohol abuse patient states the went through alcohol rehab and the hospital and was sober for 11 months however for last 2 weeks he restarted to drinking alcohol and has been drinking havely about 1 pt per day he presented emergency department after he fell at home and struck his chest on 06/07 , presented with complaint of chest CT scan of the chest did not show any acute injury or PE, his 3 sets of cardiac enzymes were negative, patient was admitted for alcohol withdrawal and placed on CIWA protocol to prevent DT, patient has been accepted at the [facility] pending COVID-19 for transferring the patient patient COVID test is negative however [facility] has not called with the bed, currently patient states the chest pain has improved denies any palpitation fever or chills, today he is less tremulous, patient remained clinically stable and [place] does not call will discharge the patient home tomorrow (2) Alcohol intoxication: Code(s): F10.929 - Alcohol use, unspecified with intoxication, unspecified Status: Acute Assessment and Plan: patient is on CIWA protocol with Librium and Ativan as needed (3) Elevated transaminase level: Code(s): R74.01 - Elevation of levels of liver transaminase levels Status: Acute Assessment and Plan: likely secondary to alcohol abuse and alcoholic liver cirrhosis (4) Essential hypertension: Code(s): I10 - Essential (primary) hypertension Status: Acute Assessment and Plan: will start the patient on labetalol (5) Suspected COVID-19 virus infection: Code(s): Z20.828 - Contact with and (suspected) exposure to other viral communicable diseases Status: Acute Assessment and Plan: patient COVID test is negative Subjective Date/time seen: 06/08/20 17:15 Bryce Sandhu is a 50 year old male male with history of alcohol abuse patient states the went through alcohol rehab and the hospital and was sober for 11 months however for last 2 weeks he restarted to drinking alcohol and has been drinking havely about 1 pt per day he presented emergency department after he fell at home and struck his chest on 06/07 , presented with complaint of chest CT scan of the chest did not show any acute injury or PE, his 3 sets of cardiac enzymes were negative, patient was admitted for alcohol withdrawal and placed on CIWA protocol to prevent DT, patient has been accepted at the [facility] pending COVID-19 for transferring the patient patient COVID test is negative however [facility] has not called with the bed, currently patient states the chest pain has improved denies any palpitation fever or chills, today he is less tremulous, patient remained clinically stable and [place] does not call will discharge the patient home tomorrow Review of Systems Review of Systems: All systems reviewed & are unremarkable except as noted in HPI and below Exam Narrative: Exam Narrative: patient appears chronically older than his age and tremulous Patient is comfortable, NAD HEENT: eyes are clear and none icteric LUNGS:CTA HEART: RR S1S2 ABD: BS+, Soft and nontender Lower extremities: no edema SKIN: nonjaundiced Neuro: grossly intact Objective Data Vital Signs Vital Signs: Vital Signs - 24 hr 06/07/20 20:00 06/07/20 20:26 06/07/20 20:39 Temperature 98.4 F Pulse Rate 104 H 96 96 Pulse Rate [Monitor] 104 H Respiratory Rate 20 Blood Pressure 191/125 H Pulse Oximetry 96 06/07/20 21:30 06/07/20 21:34 06/07/20 21:45 Temperature Pulse Rate 89 88 89 Pulse Rate [Monitor] Respiratory Rate Blood Pressure 227/196 H 184/109 H Pulse Oximetry 06/07/20 22:10 06/07/20 22:42 06/08/20 00:00 Temperature 98.4 F Pul
[2020-06-08] MEDS: LORazepam (*CRX) 1 MG TABLET PO (20:12)
[2020-06-09] VITALS: BP 167/81; BP 169/92; PULSE 101; PULSE 74; PULSE 79; RESP 16; TEMP 36.9; O2SAT 98
[2020-06-09 04:00] VITALS: BP 167/89; PULSE 101; PULSE 79; PULSE 80; RESP 16; TEMP 36.6; O2SAT 98
[2020-06-09] MEDS: LOPERAMIDE HCL 2 MG CAPSULE PO (04:55)
[2020-06-09] MEDS: chlordiazePOXIDE (*CRX) 25 MG CAPSULE PO (06:09)
[2020-06-09 08:00] VITALS: BP 150/75; PULSE 102; PULSE 88; RESP 14; TEMP 35.7; O2SAT 97
[2020-06-09 09:07] VITALS: PULSE 88
[2020-06-09] MEDS: THIAMINE HCL 100 MG TABLET PO (09:07)
[2020-06-09] MEDS: ENOXAPARIN 40 MG/0.4 ML SYRINGE SUB-Q (09:07)
[2020-06-09] MEDS: METOPROLOL TARTRATE 25 MG TABLET PO (09:07)
[2020-06-09] MEDS: LABETALOL HCL 50 MG TABLET PO (09:07)
[2020-06-09] MEDS: lisinopriL 10 MG TABLET PO (09:08)
[2020-06-09] MEDS: FOLIC ACID 1 MG TABLET PO (09:08)
[2020-06-09 10:04] LABS: Hemoglobin 15.9 g/dL (14.0-18.0); Mean Corpuscular HGB Conc 33.8 g/dl (32-36); Mean Corpuscular Volume 100.6 fl (80-100); Mean Platelet Volume 10.1 fl (7.4-10.4); Platelet Count Result 227 k/mm3 (150-375); Red Blood Count 4.67 M/mm3 (4.6-6.20); Red Cell Distribution Width 12.4 % (11.5-14.5); White Blood Count 6.9 K/mm3 (4.5-10.0)
[2020-06-09 10:18] LABS: Alanine Aminotransferase 219 U/L (4-50); Albumin Level 4.4 g/dL (3.5-5.1); Alkaline Phosphatase 77 U/L (38-126); Anion Gap 7 mmol/L (8-16); Aspartate Amino Transferase 154 U/L (17-59); Bilirubin,Total 0.5 mg/dL (0.2-1.3); Blood Urea Nitrogen 5 mg/dL (9-20); Calcium 9.8 mg/dL (8.4-10.2); Carbon Dioxide 31 mmol/L (22-30); Chloride 101 mmol/L (98-107); Estimated CRCL calculation 110 ml/min; Estimated Glomerular Filt Rate > 60; Glucose 113 mg/dL (75-110); Potassium 3.6 mmol/L (3.4-5.0); Sodium 139 mmol/L (137-145)
--- NOTE | 2020-06-09 10:55 | PM.DS ---
DS: Admitting Diagnosis Admitting Diagnosis Admitting Diagnosis: seizure, chest pain, alcohol intoxication DS: Discharge Diagnosis Discharge Diagnosis (1) Chest pain: Code(s): R07.9 - Chest pain, unspecified Status: Acute Assessment and Plan: 06/08/20 17:15 Bryce Sandhu is a 50 year old male male with history of alcohol abuse patient states the went through alcohol rehab and the hospital and was sober for 11 months however for last 2 weeks he restarted to drinking alcohol and has been drinking havely about 1 pt per day he presented emergency department after he fell at home and struck his chest on 06/07 , presented with complaint of chest CT scan of the chest did not show any acute injury or PE, his 3 sets of cardiac enzymes were negative, patient was admitted for alcohol withdrawal and placed on CIWA protocol to prevent DT, patient has been accepted at the [facility] pending COVID-19 for transferring the patient patient COVID test is negative however [facility] has not called with the bed, currently patient states the chest pain has improved denies any palpitation fever or chills, today he is less tremulous, patient remained clinically stable and [place] does not call will discharge the patient home tomorrow (2) Alcohol intoxication: Code(s): F10.929 - Alcohol use, unspecified with intoxication, unspecified Status: Acute Assessment and Plan: patient is on CIWA protocol with Librium and Ativan as needed (3) Elevated transaminase level: Code(s): R74.01 - Elevation of levels of liver transaminase levels Status: Acute Assessment and Plan: likely secondary to alcohol abuse and alcoholic liver cirrhosis (4) Essential hypertension: Code(s): I10 - Essential (primary) hypertension Status: Acute Assessment and Plan: will start the patient on labetalol (5) Suspected COVID-19 virus infection: Code(s): Z20.828 - Contact with and (suspected) exposure to other viral communicable diseases Status: Acute Assessment and Plan: patient COVID test is negative DS: Summary Hospital Course Reason for hospitalization: Chief complaint: seizure, chest pain, alcohol intoxication Narrative: Bryce Sandhu is a 50 year old male male with history of alcohol abuse patient states the went through alcohol rehab and the hospital and was sober for 11 months however for last 2 weeks he restarted to drinking alcohol and has been drinking have about 1 pt per day he presented emergency department after he fell at home and struck his chest, presented with complaint of chest CT scan of the chest did not show any acute injury or PE, patient is admitted for alcohol withdrawal and placed on CIWA protocol to prevent DT, patient has been accepted at the [facility] pending COVID-19 for transferring the patient, currently patient states the chest pain has improved denies any palpitation fever or chills, were he is tremulous Hospital Course: Bryce Sandhu is a 50 year old male male with history of alcohol abuse patient states the went through alcohol rehab and the hospital and was sober for 11 months however for last 2 weeks he restarted to drinking alcohol and has been drinking havely about 1 pt per day he presented emergency department after he fell at home and struck his chest on 06/07 , presented with complaint of chest CT scan of the chest did not show any acute injury or PE, his 3 sets of cardiac enzymes were negative, patient was admitted for alcohol withdrawal and placed on CIWA protocol to prevent DT, patient has been accepted at the [facility] pending COVID-19 for transferring the patient patient COVID test is negative however [facility] has not called with the bed, currently patient states the chest pain has improved denies any palpitation fever or chills, today he is less tremulous, patient remained clinically stable and [place] does not call will discharge the patient home to
[2020-06-09 12:00] VITALS: PULSE 92
== END 2020-06-09 12:30 | disposition home or self-care (01) ==
LOC: ANHED 01:08 → ANHICU 04:15 → ANH3MED 06-09 10:42 → ANH3MEDSUR 06-10 14:34 → ANHICU 06-10 14:34
PROVIDERS: Admitting Provider Family Medicine; Emergency Provider Emergency Medicine; Visit Provider Family Medicine
DX: F10.229 Alcohol dependence with intoxication, unspecified (principal); F10.239 Alcohol dependence with withdrawal, unspecified; R07.9 Chest pain, unspecified; Z20.828 Contact with and (suspected) exposure to other viral communicable diseases; R06.02 Shortness of breath; I10 Essential (primary) hypertension; F41.8 Other specified anxiety disorders; F17.210 Nicotine dependence, cigarettes, uncomplicated; R56.9 Unspecified convulsions; R74.01 Elevation of levels of liver transaminase levels; Y90.8 Blood alcohol level of 240 mg/100 ml or more; W19.XXXA Unspecified fall, initial encounter
CPT/HCPCS: 36415; 70450; 71045; 71275; 80048; 80053; 80307; 83690; 83735; 84484; 85025; 85027; 85610; 85730; 87635; 93005; 96361; 96372; 96374; 96375; 96376; 99285; A9270; C9803; G0378; J0360; J1650; J1885; J2060; J3411; J7030; Q9967; U0003

== ENCOUNTER 2020-06-15 21:46 | Observation (INO) | payer OTHER, SELFPAY ==
--- NOTE | ~2020-06-15 | XR_ITS ---
EXAMINATION: XR chest 2V DATE: 06/15/2020 22:20 INDICATION: Left chest pain. Cough. TECHNIQUE: Frontal and lateral views of the chest were obtained. COMPARISON: Chest single view 06/07/2020, chest CT 06/07/2020 FINDINGS: The chest demonstrates clear lungs without pneumonia, pleural effusion, or pneumothorax. Th e heart size is normal. There is mild chronic anterior wedging of multiple vertebral bodies. IMPRESSION: 1. No acute cardiopulmonary disease. Reviewed, dictated and finalized at location A. SCRIPTION COORDINATOR
[2020-06-15 21:53] VITALS: BP 135/88; PULSE 127; RESP 20; TEMP 37.3; O2SAT 94
--- NOTE | 2020-06-15 21:54 | ECG_ITS ---
Measurements Intervals [place] Rate: 125 P: 58 DC: 149 QRS: 58 QRSD: 85 T: 39 QT: 309 QTc: 446 Interpretive Statements SINUS TACHYCARDIA INCOMPLETE RIGHT BUNDLE BRANCH BLOCK DELAYED PRECORDIAL R/S TRANSITION ABNORMAL ECG Electronically Signed On 06-16-2020 13:15:27 [employer] MAN by Ed Kulkarni D.O.
--- NOTE | 2020-06-15 22:02 | ED.CHESTPAIN ---
HPI - Chest Pain General Chief Complaint: Chest Pain Stated Complaint: cp Time Seen by Provider: 06/15/20 21:52 Source: patient Mode of arrival: EMS Limitations: no limitations History of Present Illness HPI narrative: Patient is a 50-year-old male complaining of chest pain, tightness, midsternal, 7 out of 10, nonradiating, started tonight. Patient states he is also detoxing but admits to drinking vodka tonight. Denies any shortness of breath, abdominal pain, nausea vomiting, or diaphoresis. Related Data Home Medications Medication Instructions Recorded Confirmed bupropion HCl 300 mg PO DAILY 06/12/19 06/07/20 quetiapine 300 mg PO HS 06/12/19 06/07/20 omeprazole 20 mg PO DAILY 06/07/20 06/07/20 Allergies Allergy/AdvReac Type Severity Reaction Status Date / Time Penicillins Allergy Unknown Unknown Verified 05/28/20 14:11 Review of Systems Review of Systems: All systems reviewed & are unremarkable except as noted in HPI and below Constitutional: Constitutional: Denies body ache(s), Denies chills, Denies excessive sweating, Denies fatigue, Denies fever(s), Denies headache(s), Denies lethargy, Denies malaise, Denies weakness and Denies weight loss Eyes: Eyes: Denies blurry vision, Denies change in vision and Denies loss of vision ENT: Denies dizziness, Denies ear discharge, Denies headache(s), Denies lip swelling, Denies epistaxis, Denies nasal congestion, Denies neck pain, Denies throat swelling and Denies tongue swelling Cardiovascular: Cardiovascular: Denies diaphoresis, Denies rapid heart rate, Denies edema, Denies irregular heart rhythm, Denies lightheadedness, Denies palpitations, Denies dyspnea and Denies dyspnea on exertion Respiratory: Respiratory: Denies chest congestion, Denies cough, Denies hemoptysis, Denies dyspnea and Denies dyspnea on exertion Gastrointestinal: Gastrointestinal: Denies abdominal pain, Denies melena, Denies hematochezia, Denies diarrhea, Denies nausea, Denies vomiting and Denies hematemesis Musculoskeletal: Musculoskeletal: Denies abnormal gait, Denies deformity, Denies joint swelling, Denies limited range of motion, Denies neck pain and Denies numbness Neurologic: Denies Abnormal speech present, Denies abnormal gait, Denies confusion, Denies dizziness, Denies headache(s), Denies focal weakness, Denies loss of vision, Denies numbness, Denies Other visual disturbances, Denies Sensory deficit (Neuro) and Denies weakness Psychiatric: Psychiatric: Denies confusion, Denies depression, Denies auditory hallucinations, Denies homicidal ideation and Denies suicidal ideation Endocrine: Endocrine: Denies cold intolerance, Denies excessive sweating, Denies fatigue, Denies heat intolerance and Denies palpitations Hematologic/Lymphatic: Hematologic/Lymphatic: Denies easy bleeding and Denies easy bruising Allergic/Immunologic: Allergic/Immunologic: Denies lip swelling, Denies throat swelling and Denies tongue swelling PMFSH Past Medical History Medical History Alcohol withdrawal seizure Anxiety Depression HTN (hypertension) with goal to be determined Seasonal allergies Surgical History Surgical History H/O adenoidectomy History of appendectomy History of tonsillectomy Family History Family History Father Heart disease Mother Heart disease Social History Social History Smoking packs per day: 0.5 Smoking cigarettes per day: 10.0 Years smoked: 20 Smoking pack-years: 10.00 Smoking status: Current every day smoker Tobacco type: cigarettes Alcohol intake: current Drinks per week: 7 Substance use: never Other substance usage details: stopped drinking for 11 months and started drinking 1 week ago=1 pint/day Last use: 06/06/20 Gender identity (if verbalized by the patient): Leif
[2020-06-15 22:45] LABS: Basophils Absolute Auto 0.2 K/mm3 (0.0-0.1); Basophils Percent Auto 1.6 % (0.2-1.2); Eosinophils Percent Auto 0.1 % (0-4.4); Hematocrit 43.9 % (42.0-52.0); Hemoglobin 15.6 g/dL (14.0-18.0); Immature Granulocyte Absolute 0.04 K/mm3 (0.00-0.031); Immature Granulocyte Percent A 0.4 % (0-0.5); Lymphocytes Absolute Auto 1.84 K/mm3 (0.9-3.2); Lymphocytes Percent Auto 19.7 % (18.3-44.2); Mean Corpuscular HGB Conc 35.5 g/dl (32-36); Mean Corpuscular Hemoglobin 34.5 pg (26-34); Mean Corpuscular Volume 97.1 fl (80-100); Mean Platelet Volume 10.3 fl (7.4-10.4); Monocytes Absolute Auto 0.9 K/mm3 (0.1-0.6); Monocytes Percent Auto 9.8 % (2.6-8.5); Neutrophils Absolute Auto 6.4 K/mm3 (1.3-6.7); Neutrophils Percent Auto 68.4 % (45.5-73.1); Platelet Count Result 262 k/mm3 (150-375); Red Blood Count 4.52 M/mm3 (4.6-6.20); Red Cell Distribution Width 13.2 % (11.5-14.5); White Blood Count 9.4 K/mm3 (4.5-10.0)
[2020-06-15 22:51] LABS: INR 0.9; Partial Thromboplastin Time 24.3 SECONDS (22.3-36.8); Prothrombin Time 13.2 Seconds (11.1-14.7)
[2020-06-15 22:53] LABS: Alanine Aminotransferase 329 U/L (4-50); Albumin Level 4.9 g/dL (3.5-5.1); Alkaline Phosphatase 107 U/L (38-126); Anion Gap 23 mmol/L (8-16); Aspartate Amino Transferase 304 U/L (17-59); Bilirubin,Total 0.9 mg/dL (0.2-1.3); Blood Urea Nitrogen 10 mg/dL (9-20); Carbon Dioxide 24 mmol/L (22-30); Chloride 96 mmol/L (98-107); Estimated CRCL calculation 118 ml/min; Estimated Glomerular Filt Rate > 60; Glucose 95 mg/dL (75-110); Potassium 3.8 mmol/L (3.4-5.0); Sodium 143 mmol/L (137-145)
[2020-06-15 23:04] LABS: Troponin I 0.012 ng/mL (0.000-0.034)
[2020-06-15 23:31] VITALS: BP 141/84; PULSE 124; RESP 26; O2SAT 97
[2020-06-15 23:33] LABS: Ethanol 401 mg/dL (<10)
[2020-06-15] MEDS: LORazepam (*CRX) 1 MG TABLET PO (23:43)
--- NOTE | 2020-06-15 23:52 | PM.IMHP ---
H&P: HPI History of Present Illness Date/Time: 06/15/20 23:52 Chief complaint: CHEST PAIN, ALCOHOL INTOXICATION Narrative: Bryce Sandhu is a 50 year old male With past medical history of alcohol abuse presents to the ED with acute alcohol intoxication. He was recently admitted 06/07 to 06/09 the exact same issue. He would have chest pain associated with his alcohol intoxication. he states he gets chest pain episodes with detoxing. Patient states he had been through alcohol detox in the past and had been sober for 11 months going to alcoholics anonymous meetings. He states he cannot go to inpatient rehab because he needs to work. The reason he came back to the hospital after relapsing so quickly was because his teenage daughter told him she did not want to talk to him anymore because of his alcoholism. patient was tearful explaining his family dynamic. Patient is , he only has his parents as his 2 children are distancing themselves from him because of alcoholism. his recent workup he had a CT scan of chest which ruled out PE, cardiac enzymes were negative and he was admitted for alcohol detox. This time patient school is again alcohol detox. There was some issue with placement of a patient in [facility] due to COVID-19 placement and then bed availability. In the ED: Labs stable, alcohol level 401, EKG sinus tach rate 125. Patient admitted to observation for alcohol detox/ Chest pain. Review of Systems Review of Systems: Narrative: Constitutional: No Fever, No Chills, No Night Sweats, No Fatigue, No Malaise ENT/Mouth: No Hearing Changes, No Ear Pain, No Nasal Congestion, No Sinus Pain, No Hoarseness, No sore throat, No Rhinorrhea, No Swallowing Difficulty Eyes: No Eye Pain, No Redness, No Vision Changes Cardiovascular: endorses chest pain (Chest pain resolved by the time he got to the floor), palpitations. No Dyspnea on Exertion, No Orthopnea, No Claudication, No Edema Respiratory: No Cough, No Sputum, No Wheezing, No Shortness of Breath Gastrointestinal: No Nausea, No Vomiting, No Diarrhea, No Constipation, No Abdominal Pain, No Heartburn, No Hematochezia, No Melena Genitourinary: No Dysuria, No Urinary Frequency, No Hematuria, No Urinary Incontinence, No Urgency Musculoskeletal: No Arthralgias, No Myalgias, No Joint Swelling, No Joint Stiffness, No Back Pain Skin: No Skin Lesions, No Pruritis, No Hair Changes Neuro: No Weakness, No Numbness, No Paresthesias, No Loss of Consciousness, No Syncope, No Dizziness, No Headache. endorses shakes /tremors Psych: No Depression, No Insomnia. endorses anxiety Heme: No Bruising, No Bleeding Lymph: No Adenopathy Endocrine: No Polyuria, No Polydipsia, No Temperature Intolerance PMFSH Past Medical History Medical History Alcohol withdrawal seizure Anxiety Depression HTN (hypertension) with goal to be determined Seasonal allergies Surgical History Surgical History H/O adenoidectomy History of appendectomy History of tonsillectomy Family History Family History Father Heart disease Mother Heart disease Social History Social History Smoking packs per day: 1 Smoking cigarettes per day: 20.0 Years smoked: 20 Smoking pack-years: 20.00 Smoking status: Current every day smoker Tobacco type: cigarettes Alcohol intake: current Drinks per week: 7 Substance use: never Other substance usage details: stopped drinking for 11 months and started drinking 1 week ago=1 pint/day Last use: 06/06/20 Gender identity (if verbalized by the patient): Male Spiritual care concerns: No Meds Home Medications and Allergies Home Medications Medication Instructions Recorded Confirmed Type bupropion HCl 300 mg PO DAILY 05/15
[2020-06-16] VITALS (15 sets, daily range): BP systolic 131–192; BP diastolic 60–98; PULSE 86–120; RESP 16–22; TEMP 36.4–37.6; O2SAT 92–97; BMI 31.6
[2020-06-16 00:31] LABS: Lipase 62 U/L (23-300)
[2020-06-16 00:32] LABS: Lactic Acid Reflex 3.3 mmol/L (0.7-2.1)
[2020-06-16] MEDS: LACTATED RINGERS 1,000 ML 999 ML IV CONT (00:35)
--- NOTE | 2020-06-16 01:00 | ADMGEN ---
This patient, Bryce Sandhu, was admitted to IMU Room 232-01. Patient/family oriented to hospital policies and general routines including ID bracelet, bed and alarms, visiting hours, pain management, procedures, bathroom and other care routines, personal items, smoking policy, room service/diet, and visiting hours. Information on how to activate the Rapid Response Team has been discussed. Patient/Family are encouraged to report perceived risks to care and to ask questions if they do not understand what they are told or what they should do.
[2020-06-16] MEDS: LACTATED RINGERS 1,000 ML 125 ML IV CONT ×3 (01:24→20:34)
[2020-06-16 02:24] LABS: Troponin I 0.014 ng/mL (0.000-0.034)
[2020-06-16] MEDS: LORazepam INJ (*CRX) 2 MG/ML VIAL 1 MG IV PUSH ×5 (02:49→20:52)
[2020-06-16 03:19] LABS: Reflex Lactic Acid Yes or No Add Lactic
[2020-06-16 05:10] LABS: Lactic Acid 2.2 mmol/L (0.7-2.1)
[2020-06-16 05:22] LABS: Troponin I 0.016 ng/mL (0.000-0.034)
[2020-06-16] MEDS: chlordiazePOXIDE (*CRX) 10 MG CAPSULE PO (06:05)
[2020-06-16] MEDS: METOPROLOL TARTRATE 25 MG TABLET PO ×2 (08:31→20:35)
[2020-06-16] MEDS: THIAMINE HCL 100 MG TABLET PO (08:31)
[2020-06-16] MEDS: PANTOPRAZOLE 40 MG TABLET PO (08:31)
[2020-06-16] MEDS: FOLIC ACID 1 MG TABLET PO (08:32)
[2020-06-16] MEDS: lisinopriL 10 MG TABLET PO (08:32)
[2020-06-16 09:25] LABS: Lactic Acid Reflex 2.1 mmol/L (0.7-2.1)
[2020-06-16] MEDS: chlordiazePOXIDE (*CRX) 25 MG CAPSULE PO ×3 (09:40→20:35)
[2020-06-16] MEDS: ENOXAPARIN 40 MG/0.4 ML SYRINGE SUB-Q (09:40)
--- NOTE | 2020-06-16 11:54 | PM.IMPN ---
Progress Note: A&P Assessment and Plan (1) Anxiety: Code(s): F41.9 - Anxiety disorder, unspecified Status: Acute Assessment and Plan: continue his Seroquel but hold his buproprion with history of seizures in the past aggravated by alcohol withdrawal and will and benzo diazepam scheduled (2) Essential hypertension: Code(s): I10 - Essential (primary) hypertension Status: Acute Assessment and Plan: continue CHARITO-inhibitor beta-quinton if remains tachycardia can increase beta-quinton (3) Alcohol intoxication: Qualifiers: Complication of substance-induced condition: with unspecified complication Qualified Code(s): F10.929 - Alcohol use, unspecified with intoxication, unspecified Code(s): F10.929 - Alcohol use, unspecified with intoxication, unspecified Status: Acute Assessment and Plan: acute. Been through rehab and just recently started relapsing. As above scheduled Librium with thiamin and aggressive hydration (4) PTSD (post-traumatic stress disorder): Code(s): F43.10 - Post-traumatic stress disorder, unspecified Status: Acute Assessment and Plan: as above continue Seroquel and hold buproprion. (5) Chest pain: Code(s): R07.9 - Chest pain, unspecified Status: Acute Assessment and Plan: atypical with negative troponins and recent CTA for similar type pain was negative. (6) Acidosis: Code(s): E87.2 - Acidosis Status: Acute Assessment and Plan: partially from dehydration. Lactate slightly elevated and hydrated aggressively and follow (7) DVT prophylaxis: Code(s): Z29.9 - Encounter for prophylactic measures, unspecified Status: Acute Assessment and Plan: Lovenox with normal platelets (8) Elevated transaminase level: Code(s): R74.01 - Elevation of levels of liver transaminase levels Status: Acute Assessment and Plan: suspect all ETOH induced but will check hepatitis profile also and follow serially Subjective Date/time seen: 06/16/20 11:54 Interval history: Date of visit 06/16. 50-year-old hypertensive white male with alcoholism admitted with relapse in acute intoxication. Has had several episodes month. Presented as he has with complaints of chest discomfort. No shortness of breath. This a.m. states he feels terrible and real jittery. no nausea no vomiting Exam Narrative: Exam Narrative: blood pressure 154/86 pulse is 100 regular afebrile pupils equal reactive light sclera anicteric lungs clear CV regular rate rhythm no murmurs abdomen is soft nontender no masses extremities without edema distal pulses are 2+ neuro alert cooperative with no focal deficits but agitated with tremor Objective Data Vital Signs Vital Signs: Vital Signs - 24 hr 06/15/20 21:53 06/15/20 23:31 06/16/20 00:43 Temperature 37.3 C Pulse Rate 127 H 124 H 119 H Pulse Rate [Bilateral Radial Palpation] Respiratory Rate 20 26 H 22 H Blood Pressure 135/88 141/84 H 140/86 Pulse Oximetry 94 97 97 06/16/20 00:57 06/16/20 01:35 06/16/20 02:00 Temperature 37.6 C H Pulse Rate 120 H 105 H 107 H Pulse Rate [Bilateral Radial Palpation] Respiratory Rate 20 Blood Pressure 150/98 H Pulse Oximetry 96 06/16/20 03:56 06/16/20 04:00 06/16/20 06:00 Temperature 37.4 C Pulse Rate 101 H 101 H 108 H Pulse Rate [Bilateral Radial Palpation] 101 H Respiratory Rate 18 18 Blood Pressure 133/82 Pulse Oximetry 94 06/16/20 08:00 06/16/20 08:31 06/16/20 08:33 Temperature 36.4 C L Pulse Rate 95 101 H Pulse Rate [Bilateral Radial Palpation] 101 H Respiratory Rate 18 Blood Pressure 156/89 H Pulse Oximetry 94 Intake/Output Intake/Output: Intake & Output 06/13/20 06/14/20 06/15/20 06/16/20 23:59 23:59 23:59 23:59 Intake Total 3614.2 Output Total 450 Balance 3164.2 Meds/Results Medications: Active Medication
[2020-06-16] MEDS: DOCUSATE SODIUM 100 MG CAPSULE PO (16:09)
[2020-06-16] MEDS: polyethylene glycoL 3350 17 GM POWD.PACK PO (16:09)
--- NOTE | 2020-06-16 18:55 | PC.NURSE ---
Received from [facility] 232/ via bed.
[2020-06-16] MEDS: QUEtiapine FUMARATE 100 MG TABLET 300 MG PO (20:35)
[2020-06-17] VITALS (7 sets, daily range): BP systolic 128–173; BP diastolic 68–88; PULSE 86–105; RESP 16–18; TEMP 36.8; O2SAT 94–95
[2020-06-17] MEDS: chlordiazePOXIDE (*CRX) 25 MG CAPSULE PO ×3 (04:30→14:52)
[2020-06-17] MEDS: LACTATED RINGERS 1,000 ML 125 ML IV CONT ×2 (04:39→12:43)
[2020-06-17 06:12] LABS: Alanine Aminotransferase 218 U/L (4-50); Albumin Level 3.6 g/dL (3.5-5.1); Alkaline Phosphatase 73 U/L (38-126); Anion Gap 5 mmol/L (8-16); Aspartate Amino Transferase 178 U/L (17-59); Bilirubin,Total 1.7 mg/dL (0.2-1.3); Blood Urea Nitrogen 8 mg/dL (9-20); Calcium 8.7 mg/dL (8.4-10.2); Carbon Dioxide 35 mmol/L (22-30); Chloride 96 mmol/L (98-107); Estimated CRCL calculation 146 ml/min; Estimated Glomerular Filt Rate > 60; Glucose 81 mg/dL (75-110); Magnesium 1.8 mg/dL (1.6-2.3); Phosphorus 2.9 mg/dL (2.5-4.5); Potassium 2.9 mmol/L (3.4-5.0); Sodium 136 mmol/L (137-145)
[2020-06-17 06:53] LABS: Hepatitis B Surface Antigen Negative (Negative)
[2020-06-17 06:59] LABS: HAV RESULT Negative (Negative); Hepatitis B Core IgM Result Negative (Negative)
[2020-06-17 07:10] LABS: Hepatitis C Virus Antibody Negative (Negative)
[2020-06-17] MEDS: POTASSIUM CHLORIDE 20 MEQ TABLET 40 MEQ PO ×3 (08:25→15:19)
[2020-06-17] MEDS: ENOXAPARIN 40 MG/0.4 ML SYRINGE SUB-Q (08:26)
[2020-06-17] MEDS: FOLIC ACID 1 MG TABLET PO (08:26)
[2020-06-17] MEDS: THIAMINE HCL 100 MG TABLET PO (08:26)
[2020-06-17] MEDS: PANTOPRAZOLE 40 MG TABLET PO (08:27)
[2020-06-17] MEDS: METOPROLOL TARTRATE 50 MG TAB PO (08:28)
[2020-06-17] MEDS: lisinopriL 20 MG TABLET PO (08:28)
[2020-06-17] MEDS: LORazepam INJ (*CRX) 2 MG/ML VIAL 1 MG IV PUSH (11:42)
[2020-06-17 14:03] LABS: Anion Gap 7 mmol/L (8-16); Blood Urea Nitrogen 7 mg/dL (9-20); Calcium 9.2 mg/dL (8.4-10.2); Carbon Dioxide 34 mmol/L (22-30); Chloride 96 mmol/L (98-107); Estimated CRCL calculation 146 ml/min; Estimated Glomerular Filt Rate > 60; Glucose 84 mg/dL (75-110); Potassium 3.5 mmol/L (3.4-5.0); Sodium 137 mmol/L (137-145)
--- NOTE | 2020-06-17 16:06 | PM.DS ---
DS: Admitting Diagnosis Admitting Diagnosis Admitting Diagnosis: CHEST PAIN, ALCOHOL INTOXICATION DS: Discharge Diagnosis Discharge Diagnosis (1) Essential hypertension: Code(s): I10 - Essential (primary) hypertension Status: Acute Assessment and Plan: continue CHARITO-inhibitor beta-quinton and increased each, lisinopril to 20 mg daily and metoprolol to 50 mg Q 12, new scripts given (2) Alcohol intoxication: Qualifiers: Complication of substance-induced condition: with unspecified complication Qualified Code(s): F10.929 - Alcohol use, unspecified with intoxication, unspecified Code(s): F10.929 - Alcohol use, unspecified with intoxication, unspecified Status: Acute Assessment and Plan: acute. Been through rehab and just recently started relapsing. scheduled Librium with thiamin and aggressive hydration. agitation subsided as did tremor. No further evidence of withdrawal felt much better 06/17. Did discharge with 20 of the 25 mg of Librium to use Q 6 p.r.n. (3) PTSD (post-traumatic stress disorder): Code(s): F43.10 - Post-traumatic stress disorder, unspecified Status: Acute Assessment and Plan: continue Seroquel and restarted bupropion on discharge (4) Chest pain: Code(s): R07.9 - Chest pain, unspecified Status: Acute Assessment and Plan: atypical with negative troponins and recent CTA for similar type pain was negative. (5) Acidosis: Code(s): E87.2 - Acidosis Status: Acute Assessment and Plan: partially from dehydration. Lactate slightly elevated and repeat lactic acid normal with CO2 up to 32 day of discharge (6) Elevated transaminase level: Code(s): R74.01 - Elevation of levels of liver transaminase levels Status: Acute Assessment and Plan: suspect all ETOH induced , hepatitis AB and C profile negative and repeat LFTs dropped precipitously with AST down to 178 DS: Summary Hospital Course Hospital Course: 50-year-old hypertensive male with history of ETOH abuse presented with atypical chest discomfort acute intoxication and tremors. Was admitted as a has been in the past. Troponins were negative and pain subsided once his alcohol level had fallen. treated with Librium, thiamin and hydration for mild alcohol withdrawal. Blood pressure was elevated and metoprolol was increased to 50 b.i.d. and lisinopril increased to 20 daily. At discharge he was alert pleasant cooperative and will follow-up at the [facility] for his continue medical care next week as previously scheduled Time Spent with Patient Time attestation: Total time spent providing and/or coordinating discharge services:35 minutes Exam Narrative: Exam Narrative: condition on discharge blood pressure 150/90 right arm lying pulse is 90 afebrile CV regular rate rhythm slightly tacky abdomen soft nontender no masses lungs clear extremities without edema neuro alert cooperative no focal deficits and oriented x4. calm and stable able to be discharged home DS: Data Data Completed and Pending Labs on day of discharge: Labs from last 24 hours 06/17/20 06/17/20 06/17/20 13:40 05:02 05:02 Sodium 137 136 L Potassium 3.5 2.9 L Chloride 96 L 96 L Carbon Dioxide 34 H 35 H Anion Gap 7 L 5 L BUN 7 L 8 L Creatinine 0.60 L 0.60 L Estim Creat Clear Calc 146 146 Estimated GFR > 60 > 60 Glucose 84 81 Calcium 9.2 8.7 Phosphorus 2.9 Magnesium 1.8 Total Bilirubin 1.7 H Direct Bilirubin 0.0 AST 178 H ALT 218 H Alkaline Phosphatase 73 Total Protein 6.0 L Albumin 3.6 Hepatitis A IgM Ab Negative Hep Bs Antigen Negative Hep B Core IgM Ab Negative Hepatitis C Ab Screen Negative Discharge Plan Discharge Attending physician on discharge: Tarik Pino Discharging Clinician: Tarik Pino Patient Disposition: Home, Self-Care
== END 2020-06-17 17:05 | disposition home or self-care (01) ==
LOC: ANHED 06-16 00:03 → ANHIMU 06-16 01:18 → ANH2MED 06-17 08:34 → ANHIMU 06-22 10:31
PROVIDERS: Admitting Provider Student in an Organized Health Care Education/Training Program; Emergency Provider Emergency Medicine; Visit Provider Internal Medicine
DX: I10 Essential (primary) hypertension (principal); F10.929 Alcohol use, unspecified with intoxication, unspecified; F43.10 Post-traumatic stress disorder, unspecified; F41.9 Anxiety disorder, unspecified; R07.9 Chest pain, unspecified; E87.2 Acidosis; R74.01 Elevation of levels of liver transaminase levels; F32.9 Major depressive disorder, single episode, unspecified; F17.210 Nicotine dependence, cigarettes, uncomplicated; R94.31 Abnormal electrocardiogram [ECG] [EKG]
CPT/HCPCS: 36415; 71046; 80048; 80053; 80074; 80076; 80307; 83605; 83690; 83735; 84100; 84484; 85025; 85610; 85730; 93005; 96361; 96365; 96372; 96374; 96375; 96376; 99285; A9270; G0378; J1650; J2060; J3411; J3475; J7120; J7121

== ENCOUNTER 2020-07-08 04:22 | Inpatient (IN) | payer OTHER, SELFPAY ==
[2020-07-08] VITALS (14 sets, daily range): BP systolic 117–167; BP diastolic 69–98; PULSE 99–129; RESP 16–23; TEMP 36.6–37.2; O2SAT 87–100; BMI 30.7; BMI 30.9
--- NOTE | ~2020-07-08 | XR_ITS ---
XR chest 1V portable DATE: 07/08/2020 04:47 INDICATION: Chest pain. Anxiety. TECHNIQUE: Portable upright AP chest on 07/08/2020 at 0450 hours COMPARISON: 06/15/2020 AP and lateral chest FINDINGS: Normal heart size. No hilar or mediastinal enlargement. No pulmonary infiltrate or consolid ation, pleural effusion or pulmonary vascular congestion or pneumothorax. IMPRESSION: No active cardiopulmonary disease Reviewed, dictated and finalized at location A. ONAL CARE AIDE
--- NOTE | 2020-07-08 04:28 | ECG_ITS ---
Measurements Intervals [place] Rate: 123 P: 59 [place]: 150 QRS: 43 QRSD: 90 T: 50 QT: 308 QTc: 441 Interpretive Statements SINUS TACHYCARDIA BASELINE ARTIFACT- AVR, AVF, V1-V2, V4-V6 ABNORMAL ECG Electronically Signed On 07-12-2020 12:17:39 CRITICAL SYSTEMS TECHNICIAN by Ed Kulkarni D.O.
--- NOTE | 2020-07-08 04:41 | ED.CHESTPAIN ---
HPI - Chest Pain General Chief Complaint: Chest Pain Stated Complaint: CP after drinking Time Seen by Provider: 07/08/20 04:23 History of Present Illness HPI narrative: Patient is a 50-year-old gentleman presents emerged department with chief complaint of chest discomfort and anxiety. The patient reports that he has history of alcoholism and has been sober for some time but has been drinking fairly heavily for the last 3 weeks. Patient states that last drink was approximately 1 AM and states that he feels very anxious and he feels as though his heart is beating fast. Patient reports symptoms are not worsened by anything nor are they improved. Patient reports he has history of anxiety. Related Data Home Medications Medication Instructions Recorded Confirmed bupropion HCl 300 mg PO DAILY 06/12/19 06/16/20 quetiapine 300 mg PO HS 06/12/19 06/16/20 omeprazole 20 mg PO DAILY 06/07/20 06/16/20 Allergies Allergy/AdvReac Type Severity Reaction Status Date / Time Penicillins Allergy Unknown Unknown Verified 05/28/20 14:11 Review of Systems Review of Systems: Narrative: CONSTITUTIONAL: Denies fever, chills, or sweats. EYES: Denies visual changes, redness, or discharge. ENT: Denies rhinorrhea, congestion, sore throat, or otalgia. CARDIOVASCULAR: Denies chest pain, palpitations, or edema. RESPIRATORY: Denies cough or dyspnea. GASTROINTESTINAL: Denies abdominal pain, nausea, vomiting, or diarrhea. GENITOURINARY: Denies dysuria or hematuria. SKIN: Denies rash or itching. MUSCULOSKELETAL: Denies back pain, joint pain, or myalgia. NEUROLOGIC: Denies headache, numbness, or weakness. PSYCHIATRIC: Denies anxiety or depression. A 10 system review of systems was completed on the patient and is negative except for what is stated in the HPI. Nursing and ancillary documentation was reviewed. [facility] Past Medical History Medical History Alcohol withdrawal seizure Anxiety Depression HTN (hypertension) with goal to be determined Seasonal allergies Surgical History Surgical History H/O adenoidectomy History of appendectomy History of tonsillectomy Family History Family History Father Heart disease Mother Heart disease Social History Social History Smoking packs per day: 1 Smoking cigarettes per day: 20.0 Years smoked: 20 Smoking pack-years: 20.00 Smoking status: Current every day smoker Tobacco type: cigarettes Alcohol intake: current Drinks per week: 7 Substance use: never Other substance usage details: stopped drinking for 11 months and started drinking 1 week ago=1 pint/day Last use: 06/06/20 Gender identity (if verbalized by the patient): Male Spiritual care concerns: No Exam Narrative: Exam Narrative: GENERAL: Well-appearing, well-nourished, and in no acute distress. HEAD: Normocephalic, atraumatic. EYES: PERRLA and EOMI. ENT: Nares clear, no rhinorrhea or epistaxis. Mucous membranes moist. NECK: Supple. CHEST: Clear to auscultation. No respiratory distress. HEART: Regular rhythm tachycardic rate. No murmur heard. Normal peripheral pulses. ABDOMEN: Soft, nontender, nondistended, normal active bowel sounds. EXTREMITIES: Normal range of motion. No edema. SKIN: Warm, dry, no rash. NEURO: No focal deficits. Alert and oriented x3. PSYCH: Anxious mood and affect. Course Course Emergency Course: EKG shows sinus tachycardia with a rate of [address] elevation or ST depression Vital Signs Vital signs: Vital Signs Temperature 36.8 C 07/08/20 04:24 Pulse Rate 122 H 07/08/20 04:24 Respiratory Rate 16 07/08/20 04:24 Blood Pressure 117/73 07/08/20 04:24 Pulse Oximetry 100 07/08/20 04:24 Temperature 36.8 C 07/08/20 0
[2020-07-08 04:58] LABS: Basophils Absolute Auto 0.1 K/mm3 (0.0-0.1); Basophils Percent Auto 1.1 % (0.2-1.2); Hematocrit 50.1 % (42.0-52.0); Hemoglobin 17.1 g/dL (14.0-18.0); Immature Granulocyte Absolute 0.06 K/mm3 (0.00-0.031); Immature Granulocyte Percent A 0.5 % (0-0.5); Lymphocytes Absolute Auto 2.23 K/mm3 (0.9-3.2); Mean Corpuscular HGB Conc 34.1 g/dl (32-36); Mean Corpuscular Hemoglobin 35.6 pg (26-34); Mean Corpuscular Volume 104.2 fl (80-100); Mean Platelet Volume 10.3 fl (7.4-10.4); Monocytes Absolute Auto 1.1 K/mm3 (0.1-0.6); Neutrophils Absolute Auto 9.6 K/mm3 (1.3-6.7); Neutrophils Percent Auto 73.4 % (45.5-73.1); Platelet Count Result 320 k/mm3 (150-375); Red Blood Count 4.81 M/mm3 (4.6-6.20); Red Cell Distribution Width 14.4 % (11.5-14.5); White Blood Count 13.1 K/mm3 (4.5-10.0)
[2020-07-08] MEDS: SODIUM CHLORIDE 0.9% IV 1,000 ML 999 ML IV CONT ×2 (04:59→05:23)
[2020-07-08] MEDS: ASPIRIN 81 MG CHEWABLE TABLET 324 MG PO (05:03)
[2020-07-08 05:16] LABS: Alanine Aminotransferase 301 U/L (4-50); Albumin Level 4.7 g/dL (3.5-5.1); Alkaline Phosphatase 136 U/L (38-126); Anion Gap 25 mmol/L (8-16); Aspartate Amino Transferase 429 U/L (17-59); Bilirubin,Total 1.2 mg/dL (0.2-1.3); Blood Urea Nitrogen 19 mg/dL (9-20); Calcium 8.5 mg/dL (8.4-10.2); Carbon Dioxide 21 mmol/L (22-30); Chloride 99 mmol/L (98-107); Estimated CRCL calculation 52 ml/min; Estimated Glomerular Filt Rate 40; Glucose 78 mg/dL (75-110); Lipase 124 U/L (23-300); Potassium 3.8 mmol/L (3.4-5.0); Sodium 145 mmol/L (137-145)
[2020-07-08] MEDS: LORazepam INJ (*CRX) 2 MG/ML VIAL 1 MG IV PUSH ×7 (05:20→21:00)
[2020-07-08] MEDS: THIAMINE HCL 100 MG TABLET PO (05:27)
[2020-07-08 05:33] LABS: Troponin I < 0.012 ng/mL (0.000-0.034)
[2020-07-08 06:06] LABS: Ethanol 345 mg/dL (<10)
[2020-07-08 06:36] LABS: Glucose Point of Care 72 (65-105)
[2020-07-08] MEDS: chlordiazePOXIDE (*CRX) 25 MG CAPSULE PO ×3 (06:39→17:09)
[2020-07-08] MEDS: BELLADONNA ALK/PHENOB ELIX 10 ML, MAG HYDROX/ALUMINUM HYD/SIMETH 30 ML, LIDOCAINE HCL 2... PO (06:47)
[2020-07-08 06:54] LABS: Beta-Hydroxybutyrate/Acetoacetate 3.36 mmol/L (0.02-0.27)
--- NOTE | 2020-07-08 07:05 | PC.NURSE ---
Report received from QIANA Stephens, to continue care. Pt sleeping on stretcher. Note when pt asleep [id number]% on room air. Pt awakens easily, and pulse ox increases to 88%. Placed on 2l/NC precautionary. Pt denies needs at present. Made aware of pending bed placement.
--- NOTE | 2020-07-08 08:00 | ADMGEN ---
This patient, Bryce Sandhu, was admitted to Medical Room 345-. Patient/family oriented to hospital policies and general routines including ID bracelet, bed and alarms, visiting hours, pain management, procedures, bathroom and other care routines, personal items, smoking policy, room service/diet, and visiting hours. Information on how to activate the Rapid Response Team has been discussed. Patient/Family are encouraged to report perceived risks to care and to ask questions if they do not understand what they are told or what they should do.
[2020-07-08] MEDS: SODIUM CHLORIDE 0.9% IV 1,000 ML 125 ML IV CONT ×2 (08:38→21:33)
[2020-07-08] MEDS: THIAMINE HCL 200 MG/2 ML VIAL 100 MG IV PUSH (08:39)
[2020-07-08] MEDS: ONDANSETRON INJ 4 MG/2 ML VIAL IV PUSH ×4 (08:48→21:00)
[2020-07-08 08:53] LABS: Add Urine Microscopic? YES; Appearance Urine Clear (Clear); Bacteria Urine Trace /hpf; Bilirubin Urine Negative (Negative); Color Urine Yellow (Yellow); Glucose Urine UA Negative (Negative); Hyaline Casts Urine 50+ /lpf; Ketones Urine 1+ mg/dL (Negative); Leukocyte Esterase Ur Negative LEU/UL (Negative); Mucus Urine Moderate /lpf; Nitrate Urine Negative (Negative); Protein Urine 2+ mg/dL (Negative); RBC Urine 0-2 /hpf (0-2); Specific Grav Ur 1.013 (1.001-1.035); Squamous Epithelial Cell Urine Occasional /hpf (Few); Urobilinogen Urine Negative mg/dL (<2.0)
[2020-07-08 08:54] LABS: Blood Urine Negative (Negative)
[2020-07-08 12:17] LABS: Glucose Point of Care 70 (65-105)
[2020-07-08 12:56] LABS: Glucose Point of Care 80 (65-105)
--- NOTE | 2020-07-08 13:54 | PM.IMHP ---
H&P: HPI History of Present Illness Date/Time: 07/08/20 13:54 Chief complaint: Alcohol withdrawl Narrative: Bryce Sandhu is a 50 year old male with hx of alcoholism here for palpitations. Patient states he has been drinking alcohol ?all my life?. Was drinking up to 1/5th of alcohol per day. His longest sobriety was for a few years. He was at an inpatient rehab about 2 years ago in [place]. He has a history of withdrawal seizures x2. More recently, patient was sober for the past 11 months up until 3 weeks ago when he started drinking again. He does belong to AA and has been in touch with his sponsor. Patient is currently drinking a pt a day of vodka. Patient has not been eating much. Around 4:00 a.m. this morning, patient felt palpitations and heart racing. He complains of chest pain but points to the upper abdomen. He denies any nausea but was diaphoretic. He has had a slight cough. No diarrhea. No anosmia or dysgeusia. No history of diabetes. No polyuria but has been having polydipsia. No exposure to COVID that he is aware of. Patient walked across the yard to a neighbor's house because of the symptoms and states the symptoms worsened. No recent fever or chills. EMS was contacted and patient was brought to the hospital for evaluation. Patient was tachycardic in the field and EKG showing sinus tachycardia. On admission patient was tachycardic but otherwise vital signs are stable. Alcohol was 345. He had elevated liver enzymes which is not uncommon for him. His creatinine was 1.8 with anion gap of 25. His BHOB was 3.36. Chest x-ray was clear. Lipase was normal. Patient was started on IV fluids. He was given a GI cocktail. He was given Ativan and thiamine. Since admission, his abdominal pain has resolved. He still feels shaky since admission. He also has some slight nausea. Telemetry here showing sinus tachycardia. Review of Systems Review of Systems: All systems reviewed & are unremarkable except as noted in HPI and below PMFSH Past Medical History Medical History (Updated 07/08/20 @ 14:34 by Silvio Park MD) Alcohol withdrawal seizure Anxiety Depression HTN (hypertension) with goal to be determined PTSD (post-traumatic stress disorder) Seasonal allergies Surgical History Surgical History (Updated 07/08/20 @ 14:34 by Silvio Park MD) H/O adenoidectomy History of appendectomy History of tonsillectomy History of umbilical hernia repair Family History Family History (Updated 07/08/20 @ 14:35 by Silvio Park MD) Father Heart disease Mother Heart disease Social History Social History (Updated 07/08/20 @ 14:36 by Silvio Park MD) Social History: Patient smokes a pack a day. Denies history of drug use. He lives alone. He is disabled (50% through [facility]). Full code. He nominated his mother to be the individual would make medical decisions for him if he is not able. Smoking packs per day: 1 Smoking cigarettes per day: 20.0 Years smoked: 20 Smoking pack-years: 20.00 Smoking status: Current every day smoker Tobacco type: cigarettes Alcohol intake: current Drinks per week: 7 Substance use: never Other substance usage details: previously stopped drinking; started drinking heavily about 3 weeks ago. Last use: 07/08/20 Gender identity (if verbalized by the patient): Male Spiritual care concerns: No Meds Home Medications and Allergies Home Medications Medication Instructions Recorded Confirmed Type bupropion HCl 300 mg PO DAILY 06/12/19 07/08/20 History quetiapine 300 mg PO HS 06/12/19 07/08/20 History omeprazole 20 mg PO DAILY 06/07/20 07/08/20 History folic acid 1 mg PO DAILY #100 tablet 06/09/20 07/08/20 Rx thiamine HCl (vitamin B1) [Vitamin 100 mg PO QAM #90 tablet 06/09/20 07/08/20 Rx B-1] chlordiazepoxide HCl 25 mg PO Q6H #20 cap 06/17/20 07/08/20 Rx lisinopril 20 mg PO DAILY #30 tablet 06/17/20 07/08/20 Rx metoprolol tartrate 50
[2020-07-08 14:40] LABS: Anion Gap 13 mmol/L (8-16); Blood Urea Nitrogen 12 mg/dL (9-20); Calcium 7.6 mg/dL (8.4-10.2); Carbon Dioxide 25 mmol/L (22-30); Chloride 99 mmol/L (98-107); Estimated CRCL calculation 113 ml/min; Estimated Glomerular Filt Rate > 60; Glucose 80 mg/dL (75-110); Potassium 3.8 mmol/L (3.4-5.0); Sodium 137 mmol/L (137-145)
[2020-07-08] MEDS: FOLIC ACID 1 MG TABLET PO (15:19)
[2020-07-08] MEDS: THERAPEUTIC MULTIVITAMINS/MINERALS TAB (*BKC) 1 TABLET PO (15:19)
[2020-07-08 16:35] LABS: Glucose Point of Care 77 (65-105)
[2020-07-08] MEDS: QUEtiapine FUMARATE 100 MG TABLET 300 MG PO (20:25)
[2020-07-08] MEDS: METOPROLOL TARTRATE 50 MG TAB PO (20:25)
[2020-07-09] VITALS (11 sets, daily range): BP systolic 136–165; BP diastolic 79–99; PULSE 82–115; RESP 16–18; TEMP 36.4–37.1; O2SAT 96–97
[2020-07-09] MEDS: chlordiazePOXIDE (*CRX) 25 MG CAPSULE PO ×4 (00:02→17:13)
[2020-07-09 01:26] LABS: Glucose Point of Care 79 (65-105)
[2020-07-09] MEDS: ONDANSETRON INJ 4 MG/2 ML VIAL IV PUSH (03:56)
[2020-07-09] MEDS: LORazepam INJ (*CRX) 2 MG/ML VIAL 1 MG IV PUSH ×5 (03:56→20:07)
[2020-07-09 06:07] LABS: Basophils Absolute Auto 0.1 K/mm3 (0.0-0.1); Eosinophils Absolute Auto 0.1 K/mm3 (0-0.3); Hematocrit 38.6 % (42.0-52.0); Hemoglobin 13.1 g/dL (14.0-18.0); Immature Granulocyte Absolute 0.02 K/mm3 (0.00-0.031); Immature Granulocyte Percent A 0.3 % (0-0.5); Lymphocytes Absolute Auto 1.75 K/mm3 (0.9-3.2); Lymphocytes Percent Auto 24.2 % (18.3-44.2); Mean Corpuscular HGB Conc 33.9 g/dl (32-36); Mean Corpuscular Hemoglobin 34.7 pg (26-34); Mean Corpuscular Volume 102.1 fl (80-100); Mean Platelet Volume 10.2 fl (7.4-10.4); Monocytes Absolute Auto 0.7 K/mm3 (0.1-0.6); Monocytes Percent Auto 10.2 % (2.6-8.5); Neutrophils Absolute Auto 4.6 K/mm3 (1.3-6.7); Neutrophils Percent Auto 63.3 % (45.5-73.1); Platelet Count Result 187 k/mm3 (150-375); Red Blood Count 3.78 M/mm3 (4.6-6.20); Red Cell Distribution Width 13.3 % (11.5-14.5); White Blood Count 7.2 K/mm3 (4.5-10.0)
[2020-07-09 06:18] LABS: Alanine Aminotransferase 206 U/L (4-50); Albumin Level 3.4 g/dL (3.5-5.1); Alkaline Phosphatase 102 U/L (38-126); Anion Gap 7 mmol/L (8-16); Aspartate Amino Transferase 213 U/L (17-59); Bilirubin,Total 1.6 mg/dL (0.2-1.3); Blood Urea Nitrogen 10 mg/dL (9-20); Carbon Dioxide 29 mmol/L (22-30); Chloride 100 mmol/L (98-107); Estimated CRCL calculation 128 ml/min; Estimated Glomerular Filt Rate > 60; Glucose 78 mg/dL (75-110); Phosphorus 1.6 mg/dL (2.5-4.5); Potassium 3.7 mmol/L (3.4-5.0); Sodium 136 mmol/L (137-145)
[2020-07-09 06:26] LABS: Glucose Point of Care 81 (65-105)
[2020-07-09] MEDS: SODIUM CHLORIDE 0.9% IV 1,000 ML 100 ML IV CONT (07:56)
[2020-07-09] MEDS: buPROPion HCL XL (24 HR) 150 MG TABCR 300 MG PO (08:01)
[2020-07-09] MEDS: PANTOPRAZOLE 40 MG TABLET PO (08:03)
[2020-07-09] MEDS: METOPROLOL TARTRATE 50 MG TAB PO ×2 (08:04→20:00)
[2020-07-09] MEDS: THIAMINE HCL 200 MG/2 ML VIAL 100 MG IV PUSH (08:04)
[2020-07-09 08:42] LABS: Glucose Point of Care 86 (65-105)
[2020-07-09] MEDS: THERAPEUTIC MULTIVITAMINS/MINERALS TAB (*BKC) 1 TABLET PO (09:13)
[2020-07-09] MEDS: FOLIC ACID 1 MG TABLET PO (09:14)
[2020-07-09] MEDS: POTASSIUM PHOS,M-BASIC-D-BASIC 20 MMOL in SODIUM CHLORIDE 0.9% IV 250 ML 62.5 MMOL IVPB (09:15)
[2020-07-09 11:59] LABS: Glucose Point of Care 91 (65-105)
[2020-07-09 16:39] LABS: Glucose Point of Care 81 (65-105)
--- NOTE | 2020-07-09 17:20 | PM.IMPN ---
Progress Note: A&P Assessment and Plan (1) Alcohol intoxication: Qualifiers: Complication of substance-induced condition: with unspecified complication Qualified Code(s): F10.929 - Alcohol use, unspecified with intoxication, unspecified Code(s): F10.929 - Alcohol use, unspecified with intoxication, unspecified Status: Acute Assessment and Plan: Alcohol level is 436. Suspect current symptoms probably more likely related to anxiety and panic attack than from withdrawal at this time. Patient however is high risk for alcohol withdrawal. Will continue the Librium scheduled. Ativan IV is available as needed as well. Continue thiamine, folate and multivitamin. Continue CIWA protocol. Seizure precautions. Resume diet. Home if able to tolerate oral intake (2) Acidosis: Code(s): E87.2 - Acidosis Status: Acute Assessment and Plan: Patient with metabolic gap acidosis. Patient adamantly denies drinking rubbing alcohol or antifreeze. He states he only drinks vodka and has not consumed any other types of fluids that contain alcohol. BHOB elevated but glucose is normal and patient without diagnosis of diabetes makes DKA less likely. Possibly related to dehydration. Could also just be related to his alcohol use coupled with the renal failure. Acidosis resolved with fluids. (3) MANOLO (acute kidney injury): Code(s): N17.9 - Acute kidney failure, unspecified Status: Acute Assessment and Plan: Patient with elevated BUN and creatinine related to dehydration. Repeat labs showing normal renal function. Stop IV fluids. (4) Elevated transaminase level: Code(s): R74.01 - Elevation of levels of liver transaminase levels Status: Acute Assessment and Plan: LFTs elevated on admission. Not uncommon for this patient. Suspect related to alcoholic hepatitis. Hepatitis panel was negative earlier this month. Repeat LFTs trending down. (5) Alcoholism: Code(s): F10.20 - Alcohol dependence, uncomplicated Status: Acute Assessment and Plan: Patient has been educated about the benefits of alcohol cessation. (6) Essential hypertension: Code(s): I10 - Essential (primary) hypertension Status: Acute Assessment and Plan: Blood pressure reviewed on 07/09. Still tachycardic at times. TSH normal. He is on metoprolol at home which has been resumed. His tachycardia could be related to anxiety and/or being off his beta-quinton. Continue metoprolol and resume lisinopril. (7) Anxiety and depression: Code(s): F41.9 - Anxiety disorder, unspecified; F32.9 - Major depressive disorder, single episode, unspecified Status: Acute Assessment and Plan: Mood stable. Continue Wellbutrin and Seroquel. (8) Tobacco abuse: Code(s): Z72.0 - Tobacco use Status: Acute Assessment and Plan: Encouraged patient to stop drinking alcohol 1st before smoking cessation. (9) DVT prophylaxis: Code(s): Z29.9 - Encounter for prophylactic measures, unspecified Status: Acute Assessment and Plan: SCDs Subjective Date/time seen: 07/09/20 17:20 Interval history: Date of service 07/09 50 year old male with hx of alcoholism here for palpitations. Patient feels well today. No more tremors. Nor palpitations. He was nauseous last night and he was made NPO for this reason. No further nausea today. He is hungry and wants to eat. Exam Narrative: Exam Narrative: AF 97.8 165/95 2 16 97% ra Gen - NARD Chest - few basilar rhonchi o/w clear CV - RRR. S1-S2. Tele showing occasional sinus tachycardia Abd - soft, NT, ND, +BS Ext - no edema. Neuro - no tremors Psych - nml mood and affect Skin - warm and dry. Objective Data Vital Signs Vital Signs: Vital Signs - 24 hr 07/08/20 20:00 07/08/20 20:25 07/08/20 21:14 Temperature 98.9 F Pulse Rate 113 H 113 H 101 H
--- NOTE | 2020-07-09 18:30 | PC.NURSE ---
Med due at this time, tube system down and not received yet. Pharmacy aware.
[2020-07-09] MEDS: lisinopriL 20 MG TABLET PO (18:41)
[2020-07-09] MEDS: QUEtiapine FUMARATE 100 MG TABLET 300 MG PO (20:00)
[2020-07-10] VITALS (8 sets, daily range): BP systolic 170–196; BP diastolic 82–98; PULSE 67–100; RESP 16–20; TEMP 36.2–36.7; O2SAT 94–98
[2020-07-10] MEDS: chlordiazePOXIDE (*CRX) 25 MG CAPSULE PO ×3 (00:07→11:30)
[2020-07-10] MEDS: LORazepam INJ (*CRX) 2 MG/ML VIAL 1 MG IV PUSH ×3 (00:08→13:53)
[2020-07-10 01:51] LABS: Glucose Point of Care 85 (65-105)
[2020-07-10 07:44] LABS: Glucose Point of Care 81 (65-105)
[2020-07-10] MEDS: THIAMINE HCL 100 MG TABLET PO (09:11)
[2020-07-10] MEDS: THERAPEUTIC MULTIVITAMINS/MINERALS TAB (*BKC) 1 TABLET PO (09:11)
[2020-07-10] MEDS: buPROPion HCL XL (24 HR) 150 MG TABCR 300 MG PO (09:11)
[2020-07-10] MEDS: FOLIC ACID 1 MG TABLET PO (09:11)
[2020-07-10] MEDS: lisinopriL 20 MG TABLET PO (09:11)
[2020-07-10] MEDS: METOPROLOL TARTRATE 50 MG TAB PO (09:12)
[2020-07-10] MEDS: PANTOPRAZOLE 40 MG TABLET PO (11:30)
[2020-07-10 12:06] LABS: Glucose Point of Care 109 (65-105)
--- NOTE | 2020-07-10 14:29 | PM.DS ---
DS: Admitting Diagnosis Admitting Diagnosis Admitting Diagnosis: Alcohol withdrawl DS: Discharge Diagnosis Discharge Diagnosis (1) Alcohol intoxication: Qualifiers: Complication of substance-induced condition: with unspecified complication Qualified Code(s): F10.929 - Alcohol use, unspecified with intoxication, unspecified Code(s): F10.929 - Alcohol use, unspecified with intoxication, unspecified Status: Acute Assessment and Plan: Alcohol level is 436. Suspect symptoms on admission more likely related to anxiety and panic attack than from withdrawal. Patient however is high risk for alcohol withdrawal. We continued the Librium scheduled. Ativan IV is available as needed as well. We continued thiamine, folate and multivitamin. CIWA protocol in place. Seizure precautions started. He did well with oral intake. No further palpitations and s/sx of withdrawal. (2) Acidosis: Code(s): E87.2 - Acidosis Status: Acute Assessment and Plan: Patient with metabolic gap acidosis. Patient adamantly denies drinking rubbing alcohol or antifreeze. He states he only drinks vodka and has not consumed any other types of fluids that contain alcohol. BHOB elevated but glucose is normal and patient without diagnosis of diabetes makes DKA less likely. Acidosis possibly related to dehydration (ketosis) and/or from alcoholism and/or renal failure. Acidosis resolved quickly with IV fluids. (3) MANOLO (acute kidney injury): Code(s): N17.9 - Acute kidney failure, unspecified Status: Acute Assessment and Plan: Patient with elevated BUN and creatinine related to dehydration. Treated with IV fluids. Repeat labs showing normal renal function. (4) Elevated transaminase level: Code(s): R74.01 - Elevation of levels of liver transaminase levels Status: Acute Assessment and Plan: LFTs elevated on admission. Not uncommon for this patient. Suspect related to alcoholic hepatitis. Hepatitis panel was negative earlier this month. Repeat LFTs trending down. (5) Alcoholism: Code(s): F10.20 - Alcohol dependence, uncomplicated Status: Acute Assessment and Plan: Patient has been educated about the benefits of alcohol cessation. Social work provided information to the patient about alcohol cessation measures. He has a counselor at the [facility]. (COVID tested so he could get in to the [facility] for counseling) (6) Essential hypertension: Code(s): I10 - Essential (primary) hypertension Status: Acute Assessment and Plan: Blood pressure monitored; was also tachycardic at times. TSH normal. He is on metoprolol at home which was resumed. His tachycardia could be related to anxiety and/or being off his beta-quinton. We continued metoprolol and lisinopril. Blood pressure still elevated at times so lisinopril dose advanced. (7) Anxiety and depression: Code(s): F41.9 - Anxiety disorder, unspecified; F32.9 - Major depressive disorder, single episode, unspecified Status: Acute Assessment and Plan: Mood stable. We continued Wellbutrin and Seroquel. (8) Tobacco abuse: Code(s): Z72.0 - Tobacco use Status: Acute Assessment and Plan: Encouraged patient to stop drinking alcohol 1st before smoking cessation. DS: Summary Hospital Course Reason for hospitalization: 50yo male who in alcoholic presents to the ED with complaints of palpitations. Please see H&P for details. Hospital Course: As above Status at Discharge Cognitive/behavioral status at discharge: PATIENT IS STABLE FOR DISCHARGE Time Spent with Patient Time attestation: Total time spent providing and/or coordinating discharge services: 34 minutes Time spent: Greater than 30 minutes Specific discharge activities: patient education Exam Narrative: Exam Narrative: AF 97.8 196/98 72 16 98% ra Gen - NARD Chest - CTA bilaterally
[2020-07-10 23:03] LABS: SARS-CoV-2 RNA PCR Negative
--- NOTE | 2020-07-12 13:59 | PC.NURSE ---
COVID results are negative. Dr. Park is aware.
== END 2020-07-10 15:15 | disposition home or self-care (01) | DRG 897 ==
LOC: ANHED 06:25 → ANH3MED 07:10
PROVIDERS: Internal Medicine; Admitting Provider Family Medicine; Emergency Provider Emergency Medicine; Visit Provider Internal Medicine
DX: F10.239 Alcohol dependence with withdrawal, unspecified (principal); E87.2 Acidosis; N17.9 Acute kidney failure, unspecified; F10.229 Alcohol dependence with intoxication, unspecified; F41.8 Other specified anxiety disorders; I10 Essential (primary) hypertension; F17.210 Nicotine dependence, cigarettes, uncomplicated; Z20.828 Contact with and (suspected) exposure to other viral communicable diseases
CPT/HCPCS: 36415; 71045; 80048; 80053; 80307; 81001; 82010; 82607; 82746; 83690; 84100; 84443; 84484; 85025; 87086; 87635; 93005; 96361; 96374; 99285; A9270; C9803; J2060; J2405; J3411; J7030; J7050; U0003

== ENCOUNTER 2020-08-19 00:55 | Observation (INO) | payer SELFPAY ==
[2020-08-19] VITALS (21 sets, daily range): BP systolic 133–197; BP diastolic 73–125; PULSE 80–120; RESP 15–20; TEMP 36.2–37.1; O2SAT 93–99; BMI 28.8
--- NOTE | 2020-08-19 | ECHO_ITS ---
Patient Info Name: Bryce Sandhu Age: 50 years : 1970 Gender: Male Ht: 70 in Wt: 200 lbs BSA: 2.14 m2 HR: 116 bpm BP: 133 / 92 mmHg Heart Rhythm: Tachycardia Technical Quality: Fair Exam Date: 08/19/2020 11:11 AM Exam Location: [facility] Pulmonary Patient Status: Outpatient Admit Date: 08/19/2020 Staff Ordering Physician: Adriana Hernandez MD Admission Discharge Rn: Kesha Soliman RCS Attending Provider: Jeramie Beck MD Referring Physician: David OSEI; Exam Type: CA echo doppler color flow Study Info Indications R07.9 - Chest pain, unspecified Complete two-dimensional, color flow and Doppler transthoracic echocardiogram is performed. Summary 1. Complete two-dimensional, color flow and Doppler transthoracic echocardiogram is performed. 2. Left ventricular chamber dimension is normal. 3. Left ventricular systolic function is hyperdynamic, estimated at >70%. 4. There is moderately increased left ventricular wall thickness. 5. The left ventricular diastolic function is grade I diastolic dysfunction. 6. There is mild aortic valve sclerosis. Left Ventricle Left ventricular chamber dimension is normal. Left ventricular systolic function is hyperdynamic, estimated at >70%. There is moderately increased left ventricular wall thickness. The left ventricular diastolic function is grade I diastolic dysfunction. Right Ventricle Right ventricular chamber dimension is normal. Right ventricular systolic function is normal. Left Atria Left atrial chamber dimension is normal. Right Atria Right atrial chamber dimension is normal. Atrial Septum Intact interatrial septum visualized by color flow imaging. Aortic Valve The aortic valve is trileaflet. There is mild aortic valve sclerosis. There is no aortic valve stenosis. There is trace aortic valve regurgitation. Pulmonic Valve The pulmonic valve is normal. There is no pulmonic valve stenosis. There is trace pulmonic regurgitation. Mitral Valve The mitral valve has normal leaflets. There is no mitral valve stenosis. There is trace mitral valve regurgitation. Tricuspid Valve The tricuspid valve leaflets are normal. There is no significant tricuspid valve stenosis. There is trace tricuspid valve regurgitation. Pericardium/Pleural The pericardium appears normal. There is no pericardial effusion. Inferior Vena Cava Normal inferior vena cava with >50% collapse upon inspiration consistent with normal right atrial pressure, 5 mmHg. Aorta The aortic root size at the sinus of Valsalva is normal. The prox ascending aorta size is normal. Left Ventricular Outflow Tract Name Value Normal LVOT 2D LVOT Diameter 2.2 cm LVOT Doppler LVOT Peak Gradient 8 mmHg LVOT Mean Gradient 4 mmHg LVOT VTI 26 cm LVOT VTI/AV VTI Ratio 0.9 LVOT Stroke Volume 101 ml LVOT CO 11.5 l/min LVOT CI 5.4 l/min/m2 Mitral Valve -----
--- NOTE | ~2020-08-19 | XR_ITS ---
XR chest 2V 08/19/2020 01:43 Indication: Left-sided chest pain Procedure: AP and lateral views of the chest Comparison: Comparison to multiple prior studies sequentially, with oldest reviewed study dated 05/13. Findings: Lingular airspace disease, compatible with pneumonia. Heart size normal. Right lung clear. No pleural effusion or pneumothorax. No acute osseous abnormality. Impression: 1: Lingular airspace disease, compatible with pneumonia. Reviewed, dictated and finalized at location A. HICS EDIT TECHNICIAN Impression: 1: Lingular airspace disease, compatible with pneumonia.
--- NOTE | 2020-08-19 01:00 | ECG_ITS ---
Measurements Intervals [place] Rate: 121 P: 60 [place]: 150 QRS: 48 QRSD: 94 T: 57 QT: 316 QTc: 449 Interpretive Statements SINUS TACHYCARDIA BASELINE ARTIFACT- AVL ABNORMAL ECG Electronically Signed On 08-19-2020 7:14:34 FARM MANAGEMENT TEACHER by Ed Kulkarni D.O.
[2020-08-19 01:16] LABS: Basophils Absolute Auto 0.1 K/mm3 (0.0-0.1); Basophils Percent Auto 1.6 % (0.2-1.2); Eosinophils Percent Auto 0.3 % (0-4.4); Hematocrit 48.1 % (42.0-52.0); Hemoglobin 16.6 g/dL (14.0-18.0); Immature Granulocyte Absolute 0.04 K/mm3 (0.00-0.031); Immature Granulocyte Percent A 0.4 % (0-0.5); Lymphocytes Absolute Auto 1.97 K/mm3 (0.9-3.2); Lymphocytes Percent Auto 21.8 % (18.3-44.2); Mean Corpuscular HGB Conc 34.5 g/dl (32-36); Mean Corpuscular Volume 104.3 fl (80-100); Mean Platelet Volume 9.6 fl (7.4-10.4); Monocytes Absolute Auto 0.6 K/mm3 (0.1-0.6); Neutrophils Absolute Auto 6.2 K/mm3 (1.3-6.7); Neutrophils Percent Auto 68.9 % (45.5-73.1); Platelet Count Result 323 k/mm3 (150-375); Red Blood Count 4.61 M/mm3 (4.6-6.20); Red Cell Distribution Width 13.8 % (11.5-14.5)
[2020-08-19 01:25] LABS: INR 0.9; Prothrombin Time 12.4 Seconds (11.1-14.7)
[2020-08-19 01:26] LABS: Partial Thromboplastin Time 23.1 SECONDS (22.3-36.8)
[2020-08-19 01:27] LABS: Anion Gap 24 mmol/L (8-16); Blood Urea Nitrogen 10 mg/dL (9-20); Calcium 8.9 mg/dL (8.4-10.2); Carbon Dioxide 21 mmol/L (22-30); Chloride 94 mmol/L (98-107); Estimated CRCL calculation 112 ml/min; Estimated Glomerular Filt Rate > 60; Glucose 101 mg/dL (75-110); Potassium 4.1 mmol/L (3.4-5.0); Sodium 139 mmol/L (137-145)
[2020-08-19] MEDS: SODIUM CHLORIDE 0.9% IV 1,000 ML 999 ML IV CONT (01:32)
[2020-08-19] MEDS: diazePAM INJ (*CRX) 10 MG/2 ML SYRINGE 5 MG IV PUSH (01:35)
[2020-08-19 01:39] LABS: Troponin I < 0.012 ng/mL (0.000-0.034)
--- NOTE | 2020-08-19 01:54 | PC.NURSE ---
Pt. called out to update RN that he is still shaking and feels bad. ERP notified.
[2020-08-19] MEDS: BELLADONNA ALK/PHENOB ELIX 10 ML, MAG HYDROX/ALUMINUM HYD/SIMETH 30 ML, LIDOCAINE HCL 2... PO (02:10)
[2020-08-19 02:16] LABS: Ethanol 361 mg/dL (<10)
--- NOTE | 2020-08-19 03:03 | ED.GENADULT ---
HPI - General Adult General Chief complaint: Chest Pain Stated complaint: cp Time Seen by Provider: 08/19/20 01:01 History of Present Illness HPI narrative: Patient is a 50-year-old male who presents ER with complaints of chest pain and alcohol withdrawal. Reports last drink was at noon on 08/18/2020. Reports he finished off 1/5 of vodka. Reports right after that he began having chest pain which was a sensation of his heart beating hard. No shortness of breath. No sweats. Reports mild shakes. Reports when he withdrawals he has seizures. Reports he been clean and sober for 1 month and then decide to drink today because his daughter said she never went to see him again. Patient also has PTSD and has frequent episodes of panic. Related Data Home Medications Medication Instructions Recorded Confirmed bupropion HCl 300 mg PO DAILY 06/12/19 08/19/20 quetiapine 300 mg PO HS 06/12/19 08/19/20 omeprazole 20 mg PO DAILY 06/07/20 08/19/20 Allergies Allergy/AdvReac Type Severity Reaction Status Date / Time Penicillins Allergy Unknown hive Verified 08/19/20 01:05 Review of Systems Review of Systems: All systems reviewed & are unremarkable except as noted in HPI and below Constitutional: Constitutional: Denies chills, Denies fever(s) and Denies weakness ENT: Denies nasal congestion and Denies sore throat Cardiovascular: Cardiovascular: Reports chest pain, Reports rapid heart rate and Denies radiating jaw, neck or arm pain Respiratory: Respiratory: Denies cough, Denies dyspnea and Denies wheezing Gastrointestinal: Gastrointestinal: Denies abdominal pain, Denies nausea and Denies vomiting Musculoskeletal: Musculoskeletal: Denies back pain and Denies muscle cramps Psychiatric: Psychiatric: Reports anxiety PMFSH Past Medical History Medical History (Updated 08/19/20 @ 07:11 by Erick Matos MD) Alcohol withdrawal seizure Anxiety Depression HTN (hypertension) with goal to be determined PTSD (post-traumatic stress disorder) Seasonal allergies Surgical History Surgical History (Updated 07/08/20 @ 14:34 by Silvio Park MD) H/O adenoidectomy History of appendectomy History of tonsillectomy History of umbilical hernia repair Family History Family History (Updated 07/08/20 @ 14:35 by Silvio Park MD) Father Heart disease Mother Heart disease Social History Social History (Updated 07/08/20 @ 14:36 by Silvio Park MD) Social History: Patient smokes a pack a day. Denies history of drug use. He lives alone. He is disabled (50% through [facility]). Full code. He nominated his mother to be the individual would make medical decisions for him if he is not able. Smoking packs per day: 0.5 Smoking cigarettes per day: 10.0 Years smoked: 25 Smoking pack-years: 12.50 Smoking status: Current every day smoker Tobacco type: cigarettes Alcohol intake: current Drinks per week: 7 Substance use: never Other substance usage details: previously stopped drinking; started drinking heavily about 3 weeks ago. Last use: 07/08/20 Gender identity (if verbalized by the patient): Male Sexual Orientation (if Verbalized by the Patient): Straight or Heterosexual Spiritual care concerns: No Exam Narrative: Exam Narrative: GENERAL: Anxious-appearing, well-nourished, and in no acute distress. HEAD: Normocephalic, atraumatic. CHEST: Clear to auscultation. No respiratory distress. HEART: Tachycardic and regular normal peripheral pulses. ABDOMEN: Soft, nontender, nondistended. EXTREMITIES: Normal range of motion. No edema. SKIN: Warm, dry, no rash. NEURO: Alert and oriented x3. PSYCH: Anxious, no hallucinations, no thoughts of self-harm. Course Course Emergency Course: Discussed with patient that he is intoxicated will not receive any additional anxiety medication. Do not feel he is going through withdrawal as his alcohol level is critically high. Reevaluation(s) Reevaluation #1: Nasrin
[2020-08-19 05:20] LABS: Troponin I 0.035 ng/mL (0.000-0.034)
--- NOTE | 2020-08-19 05:22 | ECG_ITS ---
Measurements Intervals [place] Rate: 110 P: 60 AR: 154 QRS: 50 QRSD: 88 T: 38 QT: 340 QTc: 461 Interpretive Statements SINUS TACHYCARDIA BASELINE ARTIFACT- V3 ABNORMAL ECG Electronically Signed On 08-19-2020 7:20:26 HR ADVISOR by Ed Kulkarni D.O.
[2020-08-19] MEDS: PANTOPRAZOLE SODIUM IV 40 MG VIAL IV PUSH ×2 (06:06→13:38)
[2020-08-19] MEDS: ONDANSETRON INJ 4 MG/2 ML VIAL IV PUSH ×2 (06:14→12:11)
[2020-08-19] MEDS: LORazepam INJ (*CRX) 2 MG/ML VIAL IV PUSH ×3 (06:56→21:06)
--- NOTE | 2020-08-19 06:59 | ADMGEN ---
This patient, Bryce Sandhu, was admitted to IMU Room 206-01. Patient/family oriented to hospital policies and general routines including ID bracelet, bed and alarms, visiting hours, pain management, procedures, bathroom and other care routines, personal items, smoking policy, room service/diet, and visiting hours. Information on how to activate the Rapid Response Team has been discussed. Patient/Family are encouraged to report perceived risks to care and to ask questions if they do not understand what they are told or what they should do.
[2020-08-19] MEDS: LABETALOL HCL INJ 100 MG/20 ML VIAL IV PUSH (07:24)
--- NOTE | 2020-08-19 07:29 | PM.IMHP ---
H&P: HPI History of Present Illness Date/Time: 08/19/20 07:29 Chief Complaint: Alcohol withdrawal Narrative: Bryce Sandhu is a 50 year old male with history of alcohol abuse patient had been drinking 3-4 days heavily prior to coming to emergency depart as there were some family issues, patient presented emergency complaint of chest pain and palpitation anxious with tremors, patient was given Ativan in emergency depart, we will start the patient on Librium and follows [facility] protocol, patient was seen by placement secretary, patient 3 sets of cardiac enzymes are negative there is no acute changes on EKG, patient had a significant elevated blood pressure upon arrival 190/106 suspect most likely secondary to alcohol withdrawal, patient was started on metoprolol and lisinopril,, will continue Librium 50 mg every 6 hours, Ativan 1-2 mg every 4-6 hours as needed, started the patient on banana bag, will continue to monitor further recommendation to follow Review of Systems Review of Systems: All systems reviewed & are unremarkable except as noted in HPI and below PMFSH Past Medical History Medical History Alcohol withdrawal seizure Anxiety Depression HTN (hypertension) with goal to be determined PTSD (post-traumatic stress disorder) Seasonal allergies Surgical History Surgical History H/O adenoidectomy History of appendectomy History of tonsillectomy History of umbilical hernia repair Family History Family History Father Heart disease Mother Heart disease Social History Social History Social History: Patient smokes a pack a day. Denies history of drug use. He lives alone. He is disabled ([facility]% [facility]). Full code. He nominated his mother to be the individual would make medical decisions for him if he is not able. Smoking packs per day: 0.5 Smoking cigarettes per day: 10.0 Years smoked: 25 Smoking pack-years: 12.50 Smoking status: Current every day smoker Tobacco type: cigarettes Alcohol intake: current Drinks per week: 7 Substance use: never Other substance usage details: drinks one fifth voldka daily Last use: 07/08/20 Gender identity (if verbalized by the patient): Male Sexual Orientation (if Verbalized by the Patient): Straight or Heterosexual Spiritual care concerns: No Meds Home Medications and Allergies Home Medications Medication Instructions Recorded Confirmed Type bupropion HCl 300 mg PO DAILY 06/12/19 08/19/20 History quetiapine 300 mg PO HS 06/12/19 08/19/20 History omeprazole 20 mg PO DAILY 06/07/20 08/19/20 History folic acid 1 mg PO DAILY #100 tablet 06/09/20 08/19/20 Rx thiamine HCl (vitamin B1) [Vitamin 100 mg PO QAM #90 tablet 06/09/20 08/19/20 Rx B-1] metoprolol tartrate 50 mg PO Q12HR #60 tablet 06/17/20 08/19/20 Rx chlordiazepoxide HCl 25 mg PO Q6H #20 cap 07/10/20 08/19/20 Rx lisinopril 20 mg PO BID #60 tablet 07/10/20 08/19/20 Rx Allergies Allergy/AdvReac Type Severity Reaction Status Date / Time Penicillins Allergy Unknown hive Verified 08/19/20 01:05 Vital Signs Vital Signs - 24 hr 08/19/20 00:56 08/19/20 01:06 08/19/20 01:08 Temperature 98.7 F Pulse Rate 118 H 118 H 111 H Pulse Rate [Bilateral Monitor] Respiratory Rate 18 15 Blood Pressure 197/106 H 197/106 H Pulse Oximetry 99 98 08/19/20 05:44 08/19/20 06:29 08/19/20 06:45 Temperature 97.6 F Pulse Rate 119 H 118 H 120 H Pulse Rate [Bilateral Monitor] Respiratory Rate 18 20 20 Blood Pressure 160/96 H 161/125 H 166/96 H Pulse Oximetry 95 93 96 08/19/20 07:00 08/19/20 07:05 08/19/20 07:24 Temperature Pulse Rate 113 H 113 H Pulse Rate [Bilateral Monitor] 113 H Respiratory Rate Blood Pressure Pulse Oximetry Exam Narrative: Exam Narr
[2020-08-19 07:42] LABS: Troponin I 0.015 ng/mL (0.000-0.034)
[2020-08-19 08:20] LABS: Magnesium 1.5 mg/dL (1.6-2.3)
[2020-08-19] MEDS: MAGNESIUM OXIDE 400 MG TABLET PO (09:43)
[2020-08-19] MEDS: THIAMINE HCL INJ 100 MG, FOLIC ACID INJ 1 MG, MULTIVITAMINS-12 INJ VIAL 1 5 ML, MULTIVI... IV CONT (09:43)
[2020-08-19] MEDS: chlordiazePOXIDE (*CRX) 25 MG CAPSULE 50 MG PO ×3 (09:43→17:00)
--- NOTE | 2020-08-19 09:50 | PM.CNCAR ---
Assessment and Plan Assessment and plan (1) Chest pain: Code(s): R07.9 - Chest pain, unspecified Status: Acute Assessment and Plan: normal EKG with negative troponins. Patient's blood pressure on admission 190/106. He was withdrawing from alcohol. He has not taken blood pressure medications for 3 days. Suspect that the chest discomfort related to high blood pressure. Obtain echocardiogram. Resume home medications including lisinopril 20 mg p.o. b.i.d. and metoprolol 50 mg p.o. q.12 hours and discontinue labetalol. (2) Alcohol intoxication: Code(s): F10.929 - Alcohol use, unspecified with intoxication, unspecified Status: Acute Assessment and Plan: Continue chlordiazepoxide. Provide resources for alcohol addiction treatment History of Present Illness History of Present Illness Consult date/time: Date of service 08/19/20 09:50 Requesting physician: Erick Matos MD Consult reason: chest pain Reason For Visit: alcohol intoxication/chest pain Narrative: This is 50-year-old patient with past medical history of hypertension, PTSD who presents to the hospital chiefly complaining of palpitations associated with central chest pain. Patient used to drink alcohol and started drinking again about few days ago because of some social issues(his kids did not want to see him). He stated that his last drink was yesterday morning and he was trying to detoxify. He stated that this happened before when he does it on his own.Blood pressure on admission 190/106 and heart rate 110. No fever. He has not taken any of his blood pressure medications for 3 days. At home he takes lisinopril 20 mg b.i.d. metoprolol 50 mg q.12 hours D-dimer 0.82 which is a little bit high. Troponins x2 negative,, ethanol level 361, EKG interpreted myself shows sinus tachycardia and no ischemic changes. Chest x-ray reviewed myself shows possible pneumonia. Review of Systems Constitutional: Constitutional: Denies chills, Denies fever(s) and Denies poor appetite Eyes: Eyes: Denies eye discharge, Denies loss of vision, Denies eye pain and Denies photophobia ENT: Denies dizziness, Denies epistaxis, Denies nasal congestion and Denies sore throat Cardiovascular: Cardiovascular: Denies chest pain, Reports chest pain at rest, Denies syncope, Denies pedal edema, Denies leg edema, Reports palpitations, Denies dyspnea, Denies dyspnea on exertion and Denies orthopnea Respiratory: Respiratory: Denies cough, Denies dyspnea, Denies dyspnea on exertion and Denies wheezing Gastrointestinal: Gastrointestinal: Denies abdominal pain, Denies diarrhea, Denies nausea and Denies vomiting Genitourinary: Genitourinary: Denies hematuria, Denies genital lesions and Denies dysuria Musculoskeletal: Musculoskeletal: Denies arthralgias, Denies joint swelling and Denies numbness Integumentary/Breasts: Skin/Breast: Denies pruritus and Denies rash Neurologic: Denies dizziness, Denies syncope, Denies loss of vision and Denies numbness Psychiatric: Psychiatric: Denies anxiety and Denies depression Endocrine: Endocrine: Denies cold intolerance, Denies heat intolerance and Denies palpitations Hematologic/Lymphatic: Hematologic/Lymphatic: Denies easy bleeding and Denies easy bruising Allergic/Immunologic: Allergic/Immunologic: Denies urticaria and Denies wheezing PMFSH Past Medical History Medical History Alcohol withdrawal seizure Anxiety Depression HTN (hypertension) with goal to be determined PTSD (post-traumatic stress disorder) Seasonal allergies Surgical History Surgical History H/O adenoidectomy History of appendectomy History of tonsillectomy History of umbilical hernia repair Family History Family History Father Heart disease Mother Heart disease Social History Social
[2020-08-19] MEDS: LORazepam INJ (*CRX) 2 MG/ML VIAL 1 MG IV PUSH ×2 (10:03→13:40)
[2020-08-19] MEDS: MAGNESIUM SULF 2 GM/WATER 50ML 2 GM/50 ML BAG IVPB (10:31)
[2020-08-19] MEDS: lisinopriL 20 MG TABLET PO ×2 (13:38→21:07)
[2020-08-19] MEDS: METOPROLOL TARTRATE 50 MG TAB PO ×2 (13:39→21:07)
[2020-08-19] MEDS: LOPERAMIDE HCL 2 MG CAPSULE PO (21:06)
[2020-08-20] VITALS (14 sets, daily range): BP systolic 130–187; BP diastolic 69–101; PULSE 76–99; RESP 12–20; TEMP 36.1–36.8; O2SAT 92–96
[2020-08-20] MEDS: chlordiazePOXIDE (*CRX) 25 MG CAPSULE 50 MG PO ×4 (01:02→18:08)
[2020-08-20] MEDS: QUEtiapine FUMARATE 100 MG TABLET 300 MG PO ×2 (01:02→21:10)
[2020-08-20] MEDS: LORazepam INJ (*CRX) 2 MG/ML VIAL IV PUSH ×4 (01:13→20:26)
[2020-08-20 05:01] LABS: Hematocrit 39.8 % (42.0-52.0); Hemoglobin 13.6 g/dL (14.0-18.0); Mean Corpuscular HGB Conc 34.2 g/dl (32-36); Mean Corpuscular Hemoglobin 35.9 pg (26-34); Mean Platelet Volume 10.4 fl (7.4-10.4); Platelet Count Result 194 k/mm3 (150-375); Red Blood Count 3.79 M/mm3 (4.6-6.20); Red Cell Distribution Width 13.3 % (11.5-14.5); White Blood Count 6.2 K/mm3 (4.5-10.0)
[2020-08-20 05:20] LABS: Alanine Aminotransferase 129 U/L (4-50); Albumin Level 3.8 g/dL (3.5-5.1); Alkaline Phosphatase 73 U/L (38-126); Anion Gap 7 mmol/L (8-16); Aspartate Amino Transferase 111 U/L (17-59); Bilirubin,Total 1.4 mg/dL (0.2-1.3); Blood Urea Nitrogen 6 mg/dL (9-20); Calcium 8.4 mg/dL (8.4-10.2); Carbon Dioxide 31 mmol/L (22-30); Chloride 95 mmol/L (98-107); Estimated CRCL calculation 129 ml/min; Estimated Glomerular Filt Rate > 60; Glucose 93 mg/dL (75-110); Magnesium 2.1 mg/dL (1.6-2.3); Potassium 3.3 mmol/L (3.4-5.0); Sodium 133 mmol/L (137-145)
[2020-08-20] MEDS: PANTOPRAZOLE SODIUM IV 40 MG VIAL IV PUSH (08:20)
[2020-08-20] MEDS: METOPROLOL TARTRATE 50 MG TAB PO ×2 (08:20→20:26)
[2020-08-20] MEDS: MAGNESIUM OXIDE 400 MG TABLET PO (08:20)
[2020-08-20] MEDS: lisinopriL 20 MG TABLET PO ×2 (08:21→20:26)
[2020-08-20] MEDS: ACETAMINOPHEN 325 MG TABLET 650 MG PO (08:22)
--- NOTE | 2020-08-20 09:34 | PM.PNCARD ---
Progress Note: A&P Assessment and Plan (1) Chest pain: Code(s): R07.9 - Chest pain, unspecified Status: Acute Assessment and Plan: Feels better. Probably related to markedly elevated blood pressure at admission Continue lisinopril and metoprolol.. (2) Alcohol intoxication: Code(s): F10.929 - Alcohol use, unspecified with intoxication, unspecified Status: Acute Assessment and Plan: Continue chlordiazepoxide. Provide resources for alcohol addiction treatment Patient may be moved from IMU from a cardiac perspective or be discharged from a cardiac perspective Subjective Date/time seen: 08/20/20 09:34 Interval history: 50-year-old male admitted for chest pain, alcohol intoxication and elevated blood pressure Date of service 08/20/2020: Feels much better today. No chest pain or shortness of breath Review of Systems Constitutional: Constitutional: Denies chills, Denies fever(s) and Denies poor appetite Eyes: Eyes: Denies eye discharge, Denies loss of vision, Denies eye pain and Denies photophobia ENT: Denies dizziness, Denies epistaxis, Denies nasal congestion and Denies sore throat Cardiovascular: Cardiovascular: Denies chest pain, Reports chest pain at rest, Denies syncope, Denies pedal edema, Denies leg edema, Denies palpitations, Denies dyspnea, Denies dyspnea on exertion and Denies orthopnea Respiratory: Respiratory: Denies cough, Denies dyspnea, Denies dyspnea on exertion and Denies wheezing Gastrointestinal: Gastrointestinal: Denies abdominal pain, Denies diarrhea, Denies nausea and Denies vomiting Genitourinary: Genitourinary: Denies hematuria, Denies genital lesions and Denies dysuria Musculoskeletal: Musculoskeletal: Denies arthralgias, Denies joint swelling and Denies numbness Integumentary/Breasts: Skin/Breast: Denies pruritus and Denies rash Neurologic: Denies dizziness, Denies syncope, Denies loss of vision and Denies numbness Psychiatric: Psychiatric: Denies anxiety and Denies depression Endocrine: Endocrine: Denies cold intolerance, Denies heat intolerance and Denies palpitations Hematologic/Lymphatic: Hematologic/Lymphatic: Denies easy bleeding and Denies easy bruising Allergic/Immunologic: Allergic/Immunologic: Denies urticaria and Denies wheezing Exam Const: General: cooperative, comfortable, no acute distress, alert and awake Nutritional Appearance: well nourished Orientation/consciousness: patient oriented x3 HENMT: Head: normal to inspection, normocephalic and atraumatic Ears: hearing grossly normal bilaterally General nose exam: Normal external nose present, Normal nares present and no nasal discharge noted Face and sinus: normal facial exam and no erythema Mouth: No drooling and No restricted motion Throat: uvula midline Eyes: General: appearance normal, both eyes and all related structures Alignment and Position: position normal Conjunctivae: conjunctivae normal Sclera: sclerae normal Direct Ophthalmoscopy: No photophobia Neck: Neck: normal visual inspection and no JVD Thyroid: thyroid normal Carotids: no bruits Lymphatic: lymphedema not noted Chest: Chest palpation & inspection: normal inspection of the chest and no tenderness Resp: Effort & Inspection: normal respiratory effort and no nasal flaring Auscultation: clear to auscultation bilaterally, no crackles, no rales and no wheezes Cardio: Jugular venous distension: no JVD Rate: regular rate Rhythm: regular rhythm Heart sounds: S1 normal heart sound present, S2 normal heart sound present, no gallops, no murmurs and no rubs GI: Inspection: non-distended Auscultation: normal bowel sounds Rectal Exam: deferred : General: No no CVA tenderness Back/Spine/Pelvis: Back: No no CVA tenderness Cervical Spine: cervical ROM normal Skin: General skin exam: normal color and rashes and/or lesions noted Neuro: General: patient oriented x3 Speech: normal speech Motor exam (neuro): no trem
[2020-08-20] MEDS: POTASSIUM CHLORIDE 20 MEQ TABLET 40 MEQ PO (10:22)
--- NOTE | 2020-08-20 15:56 | PM.IMPN ---
Progress Note: A&P Assessment and Plan (1) Alcohol intoxication: Code(s): F10.929 - Alcohol use, unspecified with intoxication, unspecified Status: Acute Assessment and Plan: 08/20/20 15:56 Bryce Sandhu is a 50 year old male with history of alcohol abuse patient had been drinking 3-4 days heavily prior to coming to emergency depart as there were some family issues, patient presented emergency complaint of chest pain and palpitation anxious with tremors, patient was given Ativan in emergency depart, we will start the patient on Librium and follows [facility] protocol, patient was seen by chamber magistrate, patient 3 sets of cardiac enzymes are negative there is no acute changes on EKG, patient had a significant elevated blood pressure upon arrival 190/106 suspect most likely secondary to alcohol withdrawal, patient was started on metoprolol and lisinopril,, will continue Librium 50 mg every 6 hours, Ativan 1-2 mg every 4-6 hours as needed, started the patient on banana bag, will continue to monitor further recommendation to follow. 08/20 today patient is more calmer and stats feeling better, he is on Librium 50mg po q6, his HR is controlled with metoprolol and lisinopril and was seen by chamber magistrate, he is clinically stable, will transfer patient out of IMU to [facility] with telemetry, will continue to monitor and further recommendation to follow, he still had risk for DT. (2) Chest pain: Code(s): R07.9 - Chest pain, unspecified Status: Acute Assessment and Plan: Most likely secondary to alcohol withdrawal patient seen by chamber magistrate does not suspect acute coronary syndrome (3) Elevated troponin: Code(s): R77.8 - Other specified abnormalities of plasma proteins Status: Acute Assessment and Plan: Most likely demand ischemia secondary to alcohol withdrawal (4) Alcoholism: Code(s): F10.20 - Alcohol dependence, uncomplicated Status: Acute Additional Plan Patient will benefit from alcohol rehab Subjective Date/time seen: 08/20/20 15:56 Bryce Sandhu is a 50 year old male with history of alcohol abuse patient had been drinking 3-4 days heavily prior to coming to emergency depart as there were some family issues, patient presented emergency complaint of chest pain and palpitation anxious with tremors, patient was given Ativan in emergency depart, we will start the patient on Librium and follows [facility] protocol, patient was seen by chamber magistrate, patient 3 sets of cardiac enzymes are negative there is no acute changes on EKG, patient had a significant elevated blood pressure upon arrival 190/106 suspect most likely secondary to alcohol withdrawal, patient was started on metoprolol and lisinopril,, will continue Librium 50 mg every 6 hours, Ativan 1-2 mg every 4-6 hours as needed, started the patient on banana bag, will continue to monitor further recommendation to follow. 08/20 today patient is more calmer and stats feeling better, he is on Librium 50mg po q6, his HR is controlled with metoprolol and lisinopril and was seen by chamber magistrate, he is clinically stable, will transfer patient out of IMU to [facility] with telemetry, will continue to monitor and further recommendation to follow, he still had risk for DT. Review of Systems Review of Systems: All systems reviewed & are unremarkable except as noted in HPI and below Exam Narrative: Exam Narrative: Tremors Patient is comfortable, NAD HEENT: eyes are clear and none icteric LUNGS:CTA HEART: RR S1S2 ABD: BS+, Soft and nontender Lower extremities: no edema SKIN: nonjaundiced Neuro: grossly intact. Objective Data Vital Signs Vital Signs: Vital Signs - 24 hr 08/19/20 16:00 08/19/20 18:00 08/19/20 18:52 Temperature 98.6 F 97.1 F L Pulse Rate 90 86 86 Pulse Rate [Bilateral Pedal (Dorsalis Pedis) Palpation] 90 Respiratory Rate 20 18 Blood Pressure 182/91 H 151/73 H Pulse Oximetry 94 93 08/19/20 20:00 08/19/20
[2020-08-20] MEDS: WATER, STERILE FOR INJECTION 10 ML VIAL XX (20:49)
[2020-08-21] VITALS (7 sets, daily range): BP systolic 126–165; BP diastolic 66–104; PULSE 78–148; RESP 18–20; TEMP 36.4–37.1; O2SAT 92–98
[2020-08-21] MEDS: chlordiazePOXIDE (*CRX) 25 MG CAPSULE 50 MG PO ×2 (00:40→06:07)
[2020-08-21 05:15] LABS: Hematocrit 38.5 % (42.0-52.0); Hemoglobin 13.3 g/dL (14.0-18.0); Mean Corpuscular HGB Conc 34.5 g/dl (32-36); Mean Corpuscular Hemoglobin 35.2 pg (26-34); Mean Corpuscular Volume 101.9 fl (80-100); Mean Platelet Volume 10.9 fl (7.4-10.4); Platelet Count Result 157 k/mm3 (150-375); Red Blood Count 3.78 M/mm3 (4.6-6.20); Red Cell Distribution Width 12.6 % (11.5-14.5); White Blood Count 5.4 K/mm3 (4.5-10.0)
[2020-08-21 05:39] LABS: Alanine Aminotransferase 108 U/L (4-50); Albumin Level 3.8 g/dL (3.5-5.1); Alkaline Phosphatase 91 U/L (38-126); Anion Gap 6 mmol/L (8-16); Aspartate Amino Transferase 82 U/L (17-59); Bilirubin,Total 0.8 mg/dL (0.2-1.3); Blood Urea Nitrogen 7 mg/dL (9-20); Calcium 8.7 mg/dL (8.4-10.2); Carbon Dioxide 33 mmol/L (22-30); Chloride 97 mmol/L (98-107); Estimated CRCL calculation 129 ml/min; Estimated Glomerular Filt Rate > 60; Glucose 116 mg/dL (75-110); Magnesium 1.6 mg/dL (1.6-2.3); Potassium 2.9 mmol/L (3.4-5.0); Sodium 136 mmol/L (137-145)
[2020-08-21] MEDS: POTASSIUM CHLORIDE 20 MEQ TABLET 40 MEQ PO ×2 (06:41→09:09)
[2020-08-21] MEDS: lisinopriL 20 MG TABLET PO (09:09)
[2020-08-21] MEDS: MAGNESIUM OXIDE 400 MG TABLET PO (09:09)
[2020-08-21] MEDS: PANTOPRAZOLE SODIUM IV 40 MG VIAL IV PUSH (09:10)
[2020-08-21] MEDS: METOPROLOL TARTRATE 50 MG TAB PO (09:10)
[2020-08-21] MEDS: SODIUM CHLORIDE 0.9% IV 500 ML 50 ML (09:53)
--- NOTE | 2020-08-21 11:02 | PC.NURSE ---
Pt leaving AMA at this time. Pt explained risks, verbalizes understanding.
--- NOTE | 2020-08-21 12:15 | PM.DS ---
DS: Admitting Diagnosis Admitting Diagnosis Admitting Diagnosis: Alcohol withdrawal DS: Discharge Diagnosis Discharge Diagnosis (1) Alcohol intoxication: Code(s): F10.929 - Alcohol use, unspecified with intoxication, unspecified Status: Acute Assessment and Plan: 08/20/20 15:56 Bryce Sandhu is a 50 year old male with history of alcohol abuse patient had been drinking 3-4 days heavily prior to coming to emergency depart as there were some family issues, patient presented emergency complaint of chest pain and palpitation anxious with tremors, patient was given Ativan in emergency depart, we will start the patient on Librium and follows CIWA protocol, patient was seen by treatment coordinator, patient 3 sets of cardiac enzymes are negative there is no acute changes on EKG, patient had a significant elevated blood pressure upon arrival 190/106 suspect most likely secondary to alcohol withdrawal, patient was started on metoprolol and lisinopril,, will continue Librium 50 mg every 6 hours, Ativan 1-2 mg every 4-6 hours as needed, started the patient on banana bag, will continue to monitor further recommendation to follow. 08/20 today patient is more calmer and stats feeling better, he is on Librium 50mg po q6, his HR is controlled with metoprolol and lisinopril and was seen by treatment coordinator, he is clinically stable, will transfer patient out of IMU to [facility] with telemetry, will continue to monitor and further recommendation to follow, he still had risk for DT. DS: Summary Hospital Course Reason for hospitalization: Chief Complaint: Alcohol withdrawal Narrative: Bryce Sandhu is a 50 year old male with history of alcohol abuse patient had been drinking 3-4 days heavily prior to coming to emergency depart as there were some family issues, patient presented emergency complaint of chest pain and palpitation anxious with tremors, patient was given Ativan in emergency depart, we will start the patient on Librium and follows CIWA protocol, patient was seen by treatment coordinator, patient 3 sets of cardiac enzymes are negative there is no acute changes on EKG, patient had a significant elevated blood pressure upon arrival 190/106 suspect most likely secondary to alcohol withdrawal, patient was started on metoprolol and lisinopril,, will continue Librium 50 mg every 6 hours, Ativan 1-2 mg every 4-6 hours as needed, started the patient on banana bag, will continue to monitor further recommendation to follow Hospital Course: Bryce Sandhu is a 50 year old male with history of alcohol abuse patient had been drinking 3-4 days heavily prior to coming to emergency depart as there were some family issues, patient presented emergency complaint of chest pain and palpitation anxious with tremors, patient was given Ativan in emergency depart, we will start the patient on Librium and follows [facility] protocol, patient was seen by treatment coordinator, patient 3 sets of cardiac enzymes are negative there is no acute changes on EKG, patient had a significant elevated blood pressure upon arrival 190/106 suspect most likely secondary to alcohol withdrawal, patient was started on metoprolol and lisinopril,, will continue Librium 50 mg every 6 hours, Ativan 1-2 mg every 4-6 hours as needed, started the patient on banana bag, will continue to monitor further recommendation to follow. 08/20 today patient is more calmer and stats feeling better, he is on Librium 50mg po q6, his HR is controlled with metoprolol and lisinopril and was seen by treatment coordinator, he is clinically stable, will transfer patient out of IMU to med-surg with telemetry, will continue to monitor and further recommendation to follow, he still had risk for DT. Left AMA Time Spent with Patient Time attestation: Total time spent providing and/or coordinating discharge services: DS: Data Data Completed and Pending Labs on day of discharge: Labs from last 24 hours 08/21/20 08/21/20 04:44 04:44 WBC 5.4 RBC 3.78 L Hgb 1
== END 2020-08-21 11:08 | disposition left against medical advice (07) ==
LOC: ANHED 01:25 → ANHIMU 07:11
PROVIDERS: Admitting Provider Family Medicine; Emergency Provider Emergency Medicine; Visit Provider Family Medicine
DX: F10.220 Alcohol dependence with intoxication, uncomplicated (principal); R07.9 Chest pain, unspecified; R77.8 Other specified abnormalities of plasma proteins; F43.10 Post-traumatic stress disorder, unspecified; F41.8 Other specified anxiety disorders; I10 Essential (primary) hypertension; F17.210 Nicotine dependence, cigarettes, uncomplicated; Z79.899 Other long term (current) drug therapy
CPT/HCPCS: 36415; 71046; 80048; 80053; 80307; 83735; 84484; 85025; 85027; 85610; 85730; 93005; 93306; 96361; 96365; 96374; 96375; 96376; 99285; A9270; C9113; G0378; G0379; J2060; J2405; J3360; J3411; J3475; J3480; J7030; J7040; J7121

== ENCOUNTER 2020-09-19 17:04 | Emergency (ER) | payer SELFPAY ==
[2020-09-19] VITALS (12 sets, daily range): BP systolic 150–190; BP diastolic 89–99; PULSE 88–133; RESP 18–32; TEMP 37; O2SAT 95–99
--- NOTE | ~2020-09-19 | XR_ITS ---
EXAMINATION: XR chest 1V portable 09/19/2020 17:52 INDICATION: Chest pain. Hypertension. PROCEDURE: AP portable chest COMPARISON: Comparison to multiple prior studies sequentially, with oldest reviewed study dated 05/14. FINDINGS: The lungs are clear. The cardiomediastinal silhouette is within normal limits. There are no pleural effusions. There is no pneumothorax suspected. IMPRESSION: 1: NO ACUTE CARDIOPULMONARY DISEASE. Reviewed, dictated and finalized at location A. STANT ASSOCIATE PROFESSOR
--- NOTE | 2020-09-19 17:08 | ECG_ITS ---
Measurements Intervals [place] Rate: 129 P: 61 AL: 145 QRS: 37 QRSD: 88 T: 47 QT: 304 QTc: 446 Interpretive Statements SINUS TACHYCARDIA ABNORMAL ECG Electronically Signed On 09-19-2020 19:22:06 PIANO REGULATOR by Ed Kulkarni D.O.
[2020-09-19 17:42] LABS: Basophils Absolute Auto 0.1 K/mm3 (0.0-0.1); Basophils Percent Auto 0.9 % (0.2-1.2); Eosinophils Percent Auto 0.2 % (0-4.4); Hematocrit 48.2 % (42.0-52.0); Hemoglobin 17.1 g/dL (14.0-18.0); Immature Granulocyte Absolute 0.03 K/mm3 (0.00-0.031); Immature Granulocyte Percent A 0.3 % (0-0.5); Lymphocytes Absolute Auto 3.97 K/mm3 (0.9-3.2); Lymphocytes Percent Auto 35.3 % (18.3-44.2); Mean Corpuscular HGB Conc 35.5 g/dl (32-36); Mean Corpuscular Hemoglobin 35.5 pg (26-34); Mean Platelet Volume 10.5 fl (7.4-10.4); Monocytes Absolute Auto 0.7 K/mm3 (0.1-0.6); Monocytes Percent Auto 6.4 % (2.6-8.5); Neutrophils Absolute Auto 6.4 K/mm3 (1.3-6.7); Neutrophils Percent Auto 56.9 % (45.5-73.1); Platelet Count Result 261 k/mm3 (150-375); Red Blood Count 4.82 M/mm3 (4.6-6.20); Red Cell Distribution Width 11.8 % (11.5-14.5); White Blood Count 11.3 K/mm3 (4.5-10.0)
--- NOTE | 2020-09-19 17:42 | ED.GENADULT ---
HPI - General Adult General Chief complaint: Chest Pain <Patsy Iglesias MD - Last Filed: 09/20/20 16:17> Stated complaint: chest pain, nausea <Patsy Iglesias MD - Last Filed: 09/20/20 16:17> Time Seen by Provider: 09/19/20 17:32 <Patsy Iglesias MD - Last Filed: 09/20/20 16:17> Source: patient <Patsy Iglesias MD - Last Filed: 09/20/20 16:17> History of Present Illness HPI narrative: Patient is a 50 y/o male complaining of chest pain starting this morning. He state that his pain is located on left side of his chest and he rates it as 10/10. He describes it as sharp and there is no radiation, no alleviating or exacerbating factor. He also feels SOB and shaky. He is concerned about alcohol withdrawal. He states that his last drink was this morning. <Patsy Iglesias MD - Last Filed: 09/20/20 16:17> Related Data Home medications: Home Medications Medication Instructions Recorded Confirmed bupropion HCl 300 mg PO DAILY 06/12/19 08/19/20 quetiapine 300 mg PO HS 06/12/19 08/19/20 omeprazole 20 mg PO DAILY 06/07/20 08/19/20 <Patsy Iglesias MD - Last Filed: 09/20/20 16:17> Allergies/adverse reactions: Allergies Allergy/AdvReac Type Severity Reaction Status Date / Time Penicillins Allergy Unknown hive Verified 08/19/20 01:05 <Patsy Iglesias MD - Last Filed: 09/20/20 16:17> Review of Systems Constitutional: Constitutional: Denies chills, Denies fever(s), Denies headache(s) and Denies weakness <Patsy Iglesias MD - Last Filed: 09/20/20 16:17> Eyes: Eyes: Denies blurry vision <Patsy Iglesias MD - Last Filed: 09/20/20 16:17> ENT: Denies headache(s) and Denies neck pain <Patsy Iglesias MD - Last Filed: 09/20/20 16:17> Cardiovascular: Cardiovascular: Reports chest pain and Reports dyspnea <Patsy Iglesias MD - Last Filed: 09/20/20 16:17> Respiratory: Respiratory: Denies cough and Reports dyspnea <Patsy Iglesias MD - Last Filed: 09/20/20 16:17> Gastrointestinal: Gastrointestinal: Denies abdominal pain, Denies diarrhea, Denies nausea and Denies vomiting <Patsy Iglesias MD - Last Filed: 09/20/20 16:17> Genitourinary: Genitourinary: Denies hematuria and Denies dysuria <Patsy Iglesias MD - Last Filed: 09/20/20 16:17> Musculoskeletal: Musculoskeletal: Denies back pain and Denies neck pain <Patsy Iglesias MD - Last Filed: 09/20/20 16:17> Neurologic: Denies headache(s), Reports tremor(s) and Denies weakness <Patsy Ilgesias MD - Last Filed: 09/20/20 16:17> [facility] Past Medical History Medical History: Medical History Alcohol withdrawal seizure Anxiety Depression HTN (hypertension) with goal to be determined PTSD (post-traumatic stress disorder) Seasonal allergies <Patsy Iglesias MD - Last Filed: 09/20/20 16:17> Surgical History Surgical History: Surgical History H/O adenoidectomy History of appendectomy History of tonsillectomy History of umbilical hernia repair <Patsy Iglesias MD - Last Filed: 09/20/20 16:17> Family History Family History: Family History Father Heart disease Mother Heart disease <Patsy Iglesias MD - Last Filed: 09/20/20 16:17> Social History Social History: Social History Social History: Patient smokes a pack a day. Denies history of drug use. He lives alone. He is disabled ([facility]% through [facility]). Full code. He nominated his mother to be the individual would make medical decisions for him if he is not able. Smoking packs per day: 0.5 Smoking cigarettes per day: 10.0 Years smoked: 25 Smoking pack-years: 12.50 Smoking status: Current every day smoker Tobacco type: cigarettes Alcohol intake: current Drinks per week: 7 Substance use: never Other substance usage details: drinks one fifth voldka daily Last
--- NOTE | 2020-09-19 17:45 | PC.NURSE ---
patient here with c/o chest pain. TNG x1 and ASA given by EMS STAFF RADIATION THERAPIST. no SL in. unsuccessful x 3 by EMS. arrives to this ED alert but clearly intoxicated and very emotional. patient with hx of ETOH use for treatment of his anxiety. not on meds per EMS. lives alone. hx of PTSD. patient is tearful. cries out loudly at times. denes pain right now.EKG done. attempted to get IV access. on cardiac monitors. states that he drank vodka today but does not know how much.
[2020-09-19] MEDS: chlordiazePOXIDE (*CRX) 25 MG CAPSULE PO (18:14)
[2020-09-19] MEDS: KETOROLAC 30 MG/ML VIAL (*BKC) IV PUSH (18:14)
[2020-09-19 18:32] LABS: Alanine Aminotransferase 98 U/L (4-50); Albumin Level 5.2 g/dL (3.5-5.1); Alkaline Phosphatase 104 U/L (38-126); Anion Gap 18 mmol/L (8-16); Aspartate Amino Transferase 101 U/L (17-59); Bilirubin,Total 0.6 mg/dL (0.2-1.3); Blood Urea Nitrogen 10 mg/dL (9-20); Calcium 9.3 mg/dL (8.4-10.2); Carbon Dioxide 27 mmol/L (22-30); Chloride 99 mmol/L (98-107); Estimated CRCL calculation 111 ml/min; Estimated Glomerular Filt Rate > 60; Glucose 87 mg/dL (75-110); Potassium 3.8 mmol/L (3.4-5.0); Sodium 144 mmol/L (137-145)
[2020-09-19 18:43] LABS: Troponin I < 0.012 ng/mL (0.000-0.034)
[2020-09-19 18:48] LABS: Add Urine Microscopic? YES; Appearance Urine Clear (Clear); Bilirubin Urine Negative (Negative); Blood Urine 1+ (Negative); Color Urine Yellow (Yellow); Glucose Urine UA Negative (Negative); Ketones Urine 1+ mg/dL (Negative); Leukocyte Esterase Ur Negative LEU/UL (Negative); Mucus Urine Rare /lpf; Nitrate Urine Negative (Negative); Protein Urine 3+ mg/dL (Negative); RBC Urine 0-2 /hpf (0-2); Specific Grav Ur 1.016 (1.001-1.035); Squamous Epithelial Cell Urine Rare /hpf (Few); Urobilinogen Urine Negative mg/dL (<2.0); WBC Urine 0-3 /hpf
[2020-09-19 19:25] LABS: Ethanol 371 mg/dL (<10)
--- NOTE | 2020-09-19 19:30 | PC.NURSE ---
patient wants IV ativan. states IVF and other meds we have given for withdrawl do not work. will discuss with provider. alert. oriented. vitals good. patient keeps removing monitors at times.
--- NOTE | 2020-09-19 20:07 | PC.NURSE ---
patient alert. using call light. wants to eat and drink. ETOH level back at 371. will continue to monitor. already given dose of librium.
[2020-09-19] MEDS: SODIUM CHLORIDE 0.9% IV 1,000 ML 999 ML IV CONT (20:33)
[2020-09-19 20:45] LABS: Troponin I < 0.012 ng/mL (0.000-0.034)
--- NOTE | 2020-09-19 20:45 | PC.NURSE ---
spoke with patient's mother Bonnie. she can come provide patient transportation home. SL removed. patient sitting in room in wheelchair waiting for ride.
== END 2020-09-19 21:12 | disposition home or self-care (01) ==
PROVIDERS: Emergency Medicine; Emergency Provider Emergency Medicine
DX: F10.129 Alcohol abuse with intoxication, unspecified (principal); R07.9 Chest pain, unspecified; F41.9 Anxiety disorder, unspecified; F32.9 Major depressive disorder, single episode, unspecified; I10 Essential (primary) hypertension; F43.10 Post-traumatic stress disorder, unspecified; F17.210 Nicotine dependence, cigarettes, uncomplicated; Y90.8 Blood alcohol level of 240 mg/100 ml or more; R00.0 Tachycardia, unspecified
CPT/HCPCS: 36415; 71045; 80053; 80307; 81001; 84484; 85025; 93005; 96374; 99284; A9270; J1885; J7030

== ENCOUNTER 2020-10-03 09:56 | Inpatient (IN) | payer SELFPAY ==
[2020-10-03] VITALS (18 sets, daily range): BP systolic 118–221; BP diastolic 72–124; PULSE 104–120; RESP 14–20; TEMP 36.5–37.3; O2SAT 96–100; BMI 29.6; BMI 31.6
--- NOTE | ~2020-10-03 | CT_ITS ---
EXAMINATION: CT facial bones wo con DATE: 10/03/2020 11:56 INDICATION: Facial pain after fall TECHNIQUE: Computed tomography (CT) of the facial bones and maxillofacial region was performed withou t intravenous contrast. The dose-length product (DLP) was 295.52 mGy-cm. Automated exposure control a nd iterative reconstruction technique were employed. COMPARISON: None. FINDINGS: No facial bone fracture is identified. There is left facial soft tissue swelling. High atte nuation material seen in the oral cavity just lateral to the mandible apparently reflects chewing tob acco. The temporomandibular joints are unremarkable. Surgical changes are noted in the sinuses. IMPRESSION: 1. No facial fracture. Reviewed, dictated and finalized at location A. OMER RESOLUTION SPECIALIST IMPRESSION: 1. No facial fracture.
--- NOTE | 2020-10-03 10:07 | ECG_ITS ---
Measurements Intervals [place] Rate: 114 P: 49 IA: 153 QRS: 15 QRSD: 91 T: 33 QT: 327 QTc: 451 Interpretive Statements SINUS TACHYCARDIA BASELINE ARTIFACT- I, III, AVL ABNORMAL ECG Electronically Signed On 10-03-2020 15:20:39 ALUMNI SECRETARY by Ed Kulkarni D.O.
--- NOTE | 2020-10-03 10:30 | ED.ALCOHOL ---
HPI - Alcohol General Chief Complaint: Alcohol Stated Complaint: Alcohol Detox Time Seen by Provider: 10/03/20 10:00 Source: patient Mode of arrival: EMS Limitations: no limitations History of Present Illness HPI narrative: A 50-year-old male comes into the emergency department by EMS for complaints of alcohol withdrawal. Patient has longstanding history of alcoholism. He states last fall he unfortunately had some family issues that led to his increased drinking. Patient notes that he was recently admitted [facility] for [facility] withdrawals. He does note that he has seized in the past related to withdrawals. Patient states that he currently is drinking about 1/5 of vodka per day. He notes that he has in the last 5 days been drinking with his usual amounts of vodka. Related Data Home Medications Medication Instructions Recorded Confirmed bupropion HCl 300 mg PO DAILY 06/12/19 08/19/20 quetiapine 300 mg PO HS 06/12/19 08/19/20 omeprazole 20 mg PO DAILY 06/07/20 08/19/20 Allergies Allergy/AdvReac Type Severity Reaction Status Date / Time Penicillins Allergy Unknown hive Verified 08/19/20 01:05 Review of Systems Review of Systems: Narrative: CONSTITUTIONAL: Denies fever, chills, or sweats. EYES: Denies visual changes, redness, or discharge. ENT: Denies rhinorrhea, congestion, sore throat, or otalgia. CARDIOVASCULAR: Denies chest pain, palpitations, or edema. RESPIRATORY: Denies cough or dyspnea. GASTROINTESTINAL: Denies abdominal pain, nausea, vomiting, or diarrhea. GENITOURINARY: Denies dysuria or hematuria. SKIN: Denies rash or itching. MUSCULOSKELETAL: Denies back pain, joint pain, or myalgia. NEUROLOGIC: Denies headache, numbness, dizziness, or weakness. PSYCHIATRIC: Denies anxiety or depression. PMFSH Past Medical History Medical History Alcohol withdrawal seizure Anxiety Depression HTN (hypertension) with goal to be determined PTSD (post-traumatic stress disorder) Seasonal allergies Surgical History Surgical History H/O adenoidectomy History of appendectomy History of tonsillectomy History of umbilical hernia repair Family History Family History Father Heart disease Mother Heart disease Social History Social History Social History: Patient smokes a pack a day. Denies history of drug use. He lives alone. He is disabled ([facility]% [facility]). Full code. He nominated his mother to be the individual would make medical decisions for him if he is not able. Smoking packs per day: 0.5 Smoking cigarettes per day: 10.0 Years smoked: 25 Smoking pack-years: 12.50 Smoking status: Current every day smoker Tobacco type: cigarettes Alcohol intake: current Drinks per week: 7 Substance use: never Other substance usage details: drinks one fifth voldka daily Last use: 07/08/20 Gender identity (if verbalized by the patient): Male Spiritual care concerns: No Exam Narrative: Exam Narrative: GENERAL: Well-appearing, well-nourished, and in no acute distress. HEAD: Normocephalic, atraumatic. EYES: PERRLA and EOMI. ENT: Nares clear, no rhinorrhea or epistaxis. Mucous membranes moist. NECK: Supple. No adenopathy or masses. No carotid bruits or JVD CHEST: Clear to auscultation. No respiratory distress. No wheezes rales or rhonchi HEART: Tachycardic. No murmur heard. Normal peripheral pulses. ABDOMEN: Soft, nontender, nondistended, normal active bowel sounds. EXTREMITIES: Normal range of motion. No edema. SKIN: Warm, dry, no rash. NEURO: No focal deficits. Alert and oriented x3. PSYCH: Depressed mood, tearful. Course Consultations Consultation #1: [facility], [facility] not [facility] the [facility] until he has a negative Covid swab. As we are unable to get Covid r
[2020-10-03] MEDS: chlordiazePOXIDE (*CRX) 25 MG CAPSULE 50 MG PO (10:39)
[2020-10-03 10:41] LABS: Glucose Point of Care 120 (65-105)
[2020-10-03] MEDS: LORazepam INJ (*CRX) 2 MG/ML VIAL 1 MG IV PUSH ×2 (10:45→19:03)
[2020-10-03 10:53] LABS: Add Urine Microscopic? NO; Appearance Urine Clear (Clear); Bilirubin Urine Negative (Negative); Blood Urine Negative (Negative); Color Urine Straw (Yellow); Glucose Urine UA Negative (Negative); Ketones Urine Negative (Negative); Leukocyte Esterase Ur Negative LEU/UL (Negative); Nitrate Urine Negative (Negative); Protein Urine Negative (Negative); Specific Grav Ur 1.004 (1.001-1.035); Urobilinogen Urine Negative mg/dL (<2.0)
[2020-10-03 10:59] LABS: Basophils Absolute Auto 0.1 K/mm3 (0.0-0.1); Basophils Percent Auto 1.3 % (0.2-1.2); Eosinophils Absolute Auto 0.1 K/mm3 (0-0.3); Eosinophils Percent Auto 1.5 % (0-4.4); Hematocrit 42.8 % (42.0-52.0); Hemoglobin 14.7 g/dL (14.0-18.0); Immature Granulocyte Absolute 0.01 K/mm3 (0.00-0.031); Immature Granulocyte Percent A 0.2 % (0-0.5); Lymphocytes Absolute Auto 1.74 K/mm3 (0.9-3.2); Lymphocytes Percent Auto 36.8 % (18.3-44.2); Mean Corpuscular HGB Conc 34.3 g/dl (32-36); Mean Corpuscular Hemoglobin 35.5 pg (26-34); Mean Corpuscular Volume 103.4 fl (80-100); Mean Platelet Volume 9.9 fl (7.4-10.4); Monocytes Absolute Auto 0.5 K/mm3 (0.1-0.6); Monocytes Percent Auto 10.4 % (2.6-8.5); Neutrophils Absolute Auto 2.4 K/mm3 (1.3-6.7); Neutrophils Percent Auto 49.8 % (45.5-73.1); Platelet Count Result 349 k/mm3 (150-375); Red Blood Count 4.14 M/mm3 (4.6-6.20); Red Cell Distribution Width 12.5 % (11.5-14.5); White Blood Count 4.7 K/mm3 (4.5-10.0)
[2020-10-03 11:06] LABS: Barbiturate Screen Urine Negative (Negative); Benzodiazepines Screen Urine Positive (Negative)
[2020-10-03 11:07] LABS: Amphetamine Screen Urine Negative (Negative); Cannabinoid Screen Urine Negative (Negative); Cocaine Screen Urine Negative (Negative); Methadone Screen Urine Negative (Negative); Phencyclidine Screen Urine Negative (Negative)
[2020-10-03] MEDS: THIAMINE HCL INJ 100 MG, FOLIC ACID INJ 1 MG, MULTIVITAMINS-12 INJ VIAL 1 5 ML, MULTIVI... 500 MG IV CONT (11:09)
[2020-10-03 11:10] LABS: Ethanol 259 mg/dL (<10)
[2020-10-03 11:11] LABS: Alanine Aminotransferase 130 U/L (4-50); Albumin Level 4.6 g/dL (3.5-5.1); Alkaline Phosphatase 89 U/L (38-126); Anion Gap 9 mmol/L (8-16); Aspartate Amino Transferase 82 U/L (17-59); Bilirubin,Total 0.3 mg/dL (0.2-1.3); Blood Urea Nitrogen 6 mg/dL (9-20); Calcium 9.2 mg/dL (8.4-10.2); Carbon Dioxide 30 mmol/L (22-30); Chloride 106 mmol/L (98-107); Creatine Kinase 340 U/L (55-170); Estimated CRCL calculation 99 ml/min; Estimated Glomerular Filt Rate > 60; Glucose 102 mg/dL (75-110); Magnesium 1.8 mg/dL (1.6-2.3); Potassium 4.1 mmol/L (3.4-5.0); Sodium 145 mmol/L (137-145)
[2020-10-03 11:13] LABS: Opiate Screen Urine Negative (Negative)
--- NOTE | 2020-10-03 13:30 | PM.IMHP ---
H&P: HPI History of Present Illness Date/Time: 10/03/20 13:30 <Mar Howell PA-C - Last Filed: 10/03/20 22:19> Chief Complaint: Alcohol withdrawal symptoms. <Mar Howell PA-C - Last Filed: 10/03/20 22:19> Narrative: This is a 50-year-old male with history of alcoholism, alcohol withdrawal with seizures, and posttraumatic stress disorder who presented to the emergency department earlier today via EMS from home with reports of alcohol withdrawal symptoms. He has had a problem with alcohol for decades and has had periods of sobriety with the help of alcoholics anonymous and a stent at inpatient rehab a couple of years ago. He endorses drinking about 1/5th of vodka per day and will start to have withdrawal symptoms approximately 12 hours or less after his last drink. Incidentally the patient was hospitalized at the [facility] [place] earlier this week for alcohol withdrawal and was discharged home just yesterday. Reportedly he was not sent home with any medication to help with his withdrawal symptoms, and he began feeling very anxious last evening and I believe at that time he drank about a 1/5th of vodka before going to bed. About 10 hours thereafter he began to feel shaky and had another drink. This is causing him a lot of stress as he is frustrated with his alcoholism after falling on the steps today and cracking a tooth. Thus he came in today because he wants help. Currently he feels very anxious with mild tremors and racing heart. He also reports that when he closes is eyes he ?sees things I do not want to see? (he is referring to his PTSD from time spent in [place]). No fever, chills, sweats, cold or flu symptoms, chest pain, shortness of breath, nausea, or vomiting. <Mar Howell PA-C - Last Filed: 10/03/20 22:19> Review of Systems Review of Systems: Narrative: Twelve systems were reviewed with pertinent positives and negatives as per HPI. He denies suicidal and homicidal ideation. Reports history of previous alcohol withdrawal seizure as afraid to have another. He was set up with a psychologist on discharge from the [facility] yesterday, and has not coming appointment sometime last week. Fortunately he had good results with seeing that psychologist previously in hopes for the same. Except as documented, all other systems were reviewed and are negative. <Mar Howell PA-C - Last Filed: 10/03/20 22:19> [facility] Past Medical History Medical History: Medical History (Updated 10/04/20 @ 11:49 by Lalit Reynolds MD) Alcohol withdrawal seizure Anxiety Depression Essential hypertension Nicotine use Posttraumatic stress disorder Seasonal allergies <Mar Howell PA-C - Last Filed: 10/03/20 22:19> Surgical History Surgical History: Surgical History (Updated 10/03/20 @ 17:59 by Mar Howell PA-C) History of appendectomy History of surgical removal of ganglion cyst Right wrist. History of tonsillectomy History of tonsillectomy and adenoidectomy History of umbilical hernia repair <Mar Howell PA-C - Last Filed: 10/03/20 22:19> Family History Family History: Family History Father Heart disease Mother Heart disease <Mar Howell PA-C - Last Filed: 10/03/20 22:19> Social History Social History: Social History (Updated 10/03/20 @ 18:01 by Mar Howell PA-C) Social History: The patient lives in [place] alone. He has 2 children. 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 Drinks 1/5 of vodka a day. He denies illicit substance use. His mother, Bonnie Sandhu, is his surrogate decision maker and he wishes to be a full code. Smoking packs per day: 0.5 Smoking cigarettes per day: 10.0 Years smoked: 25 [place]
--- NOTE | 2020-10-03 15:00 | PC.NURSE ---
This patient, Bryce Sandhu, was admitted to Medical Room 342-01. Patient/family oriented to hospital policies and general routines including ID bracelet, bed and alarms, visiting hours, pain management, procedures, bathroom and other care routines, personal items, smoking policy, room service/diet, and visiting hours. Information on how to activate the Rapid Response Team has been discussed. Patient/Family are encouraged to report perceived risks to care and to ask questions if they do not understand what they are told or what they should do.
[2020-10-03] MEDS: chlordiazePOXIDE (*CRX) 25 MG CAPSULE PO (18:23)
[2020-10-03 21:11] LABS: Glucose Point of Care 85 (65-105)
[2020-10-03] MEDS: LORazepam INJ (*CRX) 2 MG/ML VIAL IV PUSH (21:46)
--- NOTE | 2020-10-03 22:43 | PC.NURSE ---
[id number] report received from QIANA Gabriel
[2020-10-03] MEDS: diazePAM INJ (*CRX) 10 MG/2 ML SYRINGE 20 MG IV PUSH (23:07)
[2020-10-03] MEDS: cloNIDine HCL 0.1 MG TABLET PO (23:38)
[2020-10-03] MEDS: METOPROLOL TARTRATE 50 MG TAB PO (23:38)
--- NOTE | 2020-10-03 23:41 | PC.NURSE ---
2310 arrived from room 342 via wheelchair.
[2020-10-04] VITALS (16 sets, daily range): BP systolic 137–202; BP diastolic 83–117; PULSE 71–101; RESP 12–22; TEMP 36.6–36.9; O2SAT 93–99
[2020-10-04] MEDS: chlordiazePOXIDE (*CRX) 25 MG CAPSULE 75 MG PO ×5 (00:07→23:38)
[2020-10-04 05:48] LABS: Alanine Aminotransferase 104 U/L (4-50); Albumin Level 3.6 g/dL (3.5-5.1); Alkaline Phosphatase 81 U/L (38-126); Anion Gap 5 mmol/L (8-16); Aspartate Amino Transferase 78 U/L (17-59); Bilirubin,Total 0.9 mg/dL (0.2-1.3); Blood Urea Nitrogen 5 mg/dL (9-20); Calcium 8.6 mg/dL (8.4-10.2); Carbon Dioxide 30 mmol/L (22-30); Chloride 102 mmol/L (98-107); Estimated CRCL calculation 148 ml/min; Estimated Glomerular Filt Rate > 60; Glucose 86 mg/dL (75-110); Potassium 3.7 mmol/L (3.4-5.0); Sodium 137 mmol/L (137-145)
[2020-10-04] MEDS: METOPROLOL TARTRATE 50 MG TAB PO ×2 (07:53→21:48)
[2020-10-04] MEDS: lisinopriL 20 MG TABLET PO (07:53)
[2020-10-04] MEDS: THIAMINE HCL 100 MG TABLET PO (07:54)
[2020-10-04] MEDS: PANTOPRAZOLE SOD SESQUIHYDRATE 20 MG TAB PO (07:54)
[2020-10-04] MEDS: LORazepam INJ (*CRX) 2 MG/ML VIAL IV PUSH ×6 (07:57→23:45)
[2020-10-04] MEDS: LOPERAMIDE HCL 2 MG CAPSULE 4 MG PO (09:37)
--- NOTE | 2020-10-04 11:38 | WPDCNINT ---
Assessment and Plan Assessment and plan (1) Alcohol withdrawal: Qualifiers: Complication of substance-induced condition: uncomplicated Qualified Code(s): F10.230 - Alcohol dependence with withdrawal, uncomplicated Code(s): F10.239 - Alcohol dependence with withdrawal, unspecified Status: Acute Assessment and Plan: Alcohol withdrawal with tremors, tachycardia diaphoresis, hypertension -patient currently on Librium, continue p.r.n. Ativan -continue thiamine -patient has not required any Precedex infusion (2) Alcohol intoxication: Code(s): F10.929 - Alcohol use, unspecified with intoxication, unspecified Status: Acute Assessment and Plan: Patient presented with alcohol intoxication with elevated alcohol level Drug screen was negative, benzos was positive but that was probably what was given to patient in the ER (3) Elevated LFTs: Code(s): R79.89 - Other specified abnormal findings of blood chemistry Status: Acute Assessment and Plan: Elevated LFTs likely related to alcoholism, -liver enzymes trending down, will continue to monitor (4) PTSD (post-traumatic stress disorder): Code(s): F43.10 - Post-traumatic stress disorder, unspecified Status: Acute Assessment and Plan: Continue Seroquel (5) Nicotine use: Code(s): Z72.0 - Tobacco use Status: Acute Assessment and Plan: Patient patient with tobacco abuse -counseled patient on cessation tobacco chewing (6) Anxiety: Code(s): F41.9 - Anxiety disorder, unspecified Status: Acute Assessment and Plan: Continue p.r.n. Ativan (7) Hypertension: Code(s): I10 - Essential (primary) hypertension Status: Acute Assessment and Plan: Continue metoprolol and lisinopril Additional Plan Discussed with patient updated with his condition and plan of care. I answered all questions Code status: Full code Critical care time spent: 42 minutes Due to a high probability of clinically significant, life threatening deterioration, the patient required my highest level of preparedness to intervene emergently and I personally spent this critical care time directly and personally managing the patient. This critical care time included obtaining a history; examining the patient; pulse oximetry; ordering and review of studies; arranging urgent treatment with development of a management plan; evaluation of patient's response to treatment; frequent reassessment; and discussions with other providers. It was exclusive of separately billable procedures and treating other patients and teaching time. Please see Assessment and Plan section and the rest of the note for further information on patient assessment and treatment Client Associate Consult Note Consult date: 10/04/20 Time Seen: 07:04 Reason for consult: Alcohol withdrawal, alcohol intoxication, fall HPI: Bryce Sandhu is a 50 year old male with history of alcohol abuse all with seizures, post traumatic stress disorder presented the ED via EMS with alcohol withdrawal symptoms. Patient drinks a 5th of vodka daily. Patient has some family issues that has led him to this increased drinking recently. He also had a fall on the day of admission. Patient complained of tremors been feeling very anxious. In the ER patient was also tachycardic, hypertensive, diaphoretic with tremors. Was given IV fluids, Valium, Librium transferred to the ICU for further management. Patient seen and examined the ICU this morning. Is awake, alert, oriented, pleasant and polite gentleman. Continues to have some tremors, patient also had 3 bowel movements and was requesting for Imodium. Patient did have his breakfast. Pain, shortness of breath, abdominal pain, nausea vomiting. Patient stated he had a fall and hit his nose, CT scan of the facial bones did not show any facial fracture. Urine output has been adequate. LFTs trending down Review of
--- NOTE | 2020-10-04 15:30 | PM.IMPN ---
Progress Note: A&P Assessment and Plan (1) Alcohol intoxication: Code(s): F10.929 - Alcohol use, unspecified with intoxication, unspecified Status: Acute Assessment and Plan: 10/04/20 15:30 50-year-old male with history of chronic alcohol abuse and recurrent withdrawal patient presented emergency department stating there is having family issues as well as PTSD while he was in in the war in [place], patient states he had been drinking 5th of vodka every day for last few days, he noticed more tremor and felt he was withdrawing even though upon arrival his alcohol level was 259, currently patient has obvious tremor he appears flushed, patient is being treated with Librium 75 mg every 6 hours, Ativan 2 mg as needed to prevent seizure, will continue to monitor will monitor electrolytes, with recommendation to follow (2) Alcohol withdrawal: Qualifiers: Complication of substance-induced condition: uncomplicated Qualified Code(s): F10.230 - Alcohol dependence with withdrawal, uncomplicated Code(s): F10.239 - Alcohol dependence with withdrawal, unspecified Status: Acute Assessment and Plan: Plan is above (3) Anxiety and depression: Code(s): F41.9 - Anxiety disorder, unspecified; F32.9 - Major depressive disorder, single episode, unspecified Status: Acute Assessment and Plan: Will continue home regimen and monitor (4) Posttraumatic stress disorder: Code(s): F43.10 - Post-traumatic stress disorder, unspecified Status: Inactive Assessment and Plan: Patient will benefit from psychiatry care (5) Elevated LFTs: Code(s): R79.89 - Other specified abnormal findings of blood chemistry Status: Acute Assessment and Plan: 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 He was given a banana bag in the emergency department as well as Librium 50 milligrams p.o. and Ativan 1 milligram IV. He will be admitted to the floor for close monitoring and I will schedule Librium and initiate CIWA protocol. LFTs are elevated once again due to his chronic alcohol use and are little bit better than what they typically run. The [facility] in [place] was contacted and they would not accept the patient in transfer and tell his COVID test comes back negative but the patient is interested in transfer as he believes he needs inpatient rehabilitation. He declines the need for nicotine patch. He was encouraged to focus on quitting drinking before attempting to quit smoking. His home medications will be reviewed and resumed as appropriate. Subjective Date/time seen: 10/04/20 15:30 50-year-old male with history of chronic alcohol abuse and recurrent withdrawal patient presented emergency department stating there is having family issues as well as PTSD while he was in in the war in [place], patient states he had been drinking 5th of vodka every day for last few days, he noticed more tremor and felt he was withdrawing even though upon arrival his alcohol level was 259, currently patient has obvious tremor he appears flushed, patient is being treated with Librium 75 mg every 6 hours, Ativan 2 mg as needed to prevent seizure, will continue to monitor will monitor electrolytes, with recommendation to follow Review of Systems Review of Systems: All systems reviewed & are unremarkable except as noted in HPI and below Exam Narrative: Exam Narrative: Patient is comfortable, NAD HEENT: eyes are clear and none icteric LUNGS:CTA HEART: RR S1S2 ABD: BS+, Soft and nontender Lower extremities: no edema SKIN: nonjaundiced Neuro: grossly intact. Objective Data Vital Signs Vital Signs: Vital Signs - 24 hr
[2020-10-04] MEDS: LOPERAMIDE HCL 2 MG CAPSULE PO (16:42)
[2020-10-04 19:32] LABS: SARS-CoV-2 RNA PCR Negative
[2020-10-04] MEDS: QUEtiapine FUMARATE 100 MG TABLET 300 MG PO (21:48)
[2020-10-05] VITALS (14 sets, daily range): BP systolic 137–153; BP diastolic 83–86; PULSE 72–101; RESP 20–22; TEMP 36.6; O2SAT 93–97
[2020-10-05 04:52] LABS: Hematocrit 38.2 % (42.0-52.0); Hemoglobin 13.4 g/dL (14.0-18.0); Mean Corpuscular HGB Conc 35.1 g/dl (32-36); Mean Corpuscular Hemoglobin 35.7 pg (26-34); Mean Corpuscular Volume 101.9 fl (80-100); Mean Platelet Volume 10.2 fl (7.4-10.4); Platelet Count Result 309 k/mm3 (150-375); Red Blood Count 3.75 M/mm3 (4.6-6.20); Red Cell Distribution Width 11.9 % (11.5-14.5); White Blood Count 6.4 K/mm3 (4.5-10.0)
[2020-10-05] MEDS: chlordiazePOXIDE (*CRX) 25 MG CAPSULE 75 MG PO ×4 (05:39→23:57)
[2020-10-05] MEDS: ACETAMINOPHEN 325 MG TABLET 650 MG PO (05:39)
[2020-10-05] MEDS: LORazepam INJ (*CRX) 2 MG/ML VIAL IV PUSH ×4 (05:39→20:21)
[2020-10-05 06:59] LABS: Alanine Aminotransferase 102 U/L (4-50); Albumin Level 3.8 g/dL (3.5-5.1); Alkaline Phosphatase 89 U/L (38-126); Anion Gap 7 mmol/L (8-16); Aspartate Amino Transferase 63 U/L (17-59); Bilirubin,Total 0.5 mg/dL (0.2-1.3); Blood Urea Nitrogen 3 mg/dL (9-20); Calcium 8.9 mg/dL (8.4-10.2); Carbon Dioxide 28 mmol/L (22-30); Chloride 103 mmol/L (98-107); Estimated CRCL calculation 112 ml/min; Estimated Glomerular Filt Rate > 60; Glucose 94 mg/dL (75-110); Magnesium 1.7 mg/dL (1.6-2.3); Potassium 3.4 mmol/L (3.4-5.0); Sodium 138 mmol/L (137-145)
[2020-10-05] MEDS: PANTOPRAZOLE SOD SESQUIHYDRATE 20 MG TAB PO (08:40)
[2020-10-05] MEDS: METOPROLOL TARTRATE 50 MG TAB PO ×2 (08:40→20:18)
[2020-10-05] MEDS: THIAMINE HCL 100 MG TABLET PO (08:41)
[2020-10-05] MEDS: POTASSIUM CHLORIDE 20 MEQ TABLET 40 MEQ PO (09:43)
[2020-10-05] MEDS: MAGNESIUM OXIDE 400 MG TABLET PO (09:44)
[2020-10-05] MEDS: lisinopriL 20 MG TABLET PO (09:44)
--- NOTE | 2020-10-05 16:10 | PM.IMPN ---
Progress Note: A&P Assessment and Plan (1) Alcohol intoxication: Code(s): F10.929 - Alcohol use, unspecified with intoxication, unspecified Status: Acute Assessment and Plan: 10/04/20 15:30 50-year-old male with history of chronic alcohol abuse and recurrent withdrawal patient presented emergency department stating there is having family issues as well as PTSD while he was in in the war in [place], patient states he had been drinking 5th of vodka every day for last few days, he noticed more tremor and felt he was withdrawing even though upon arrival his alcohol level was 259, currently patient has obvious tremor he appears flushed, patient is being treated with Librium 75 mg every 6 hours, Ativan 2 mg as needed to prevent seizure, will continue to monitor will monitor electrolytes, with recommendation to follow (2) Alcohol withdrawal: Qualifiers: Complication of substance-induced condition: uncomplicated Qualified Code(s): F10.230 - Alcohol dependence with withdrawal, uncomplicated Code(s): F10.239 - Alcohol dependence with withdrawal, unspecified Status: Acute Assessment and Plan: Plan is above (3) Anxiety and depression: Code(s): F41.9 - Anxiety disorder, unspecified; F32.9 - Major depressive disorder, single episode, unspecified Status: Acute Assessment and Plan: Will continue home regimen and monitor (4) Posttraumatic stress disorder: Code(s): F43.10 - Post-traumatic stress disorder, unspecified Status: Inactive Assessment and Plan: Patient will benefit from psychiatry care (5) Elevated LFTs: Code(s): R79.89 - Other specified abnormal findings of blood chemistry Status: Acute Assessment and Plan: 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 will monitor (6) Nicotine use: Code(s): Z72.0 - Tobacco use Status: Acute Assessment and Plan: Patient is offered nicotine patches Subjective Date/time seen: 10/05/20 16:11 10/04 50-year-old male with history of chronic alcohol abuse and recurrent withdrawal patient presented emergency department stating there is having family issues as well as PTSD while he was in in the war in [place], patient states he had been drinking 5th of vodka every day for last few days, he noticed more tremor and felt he was withdrawing even though upon arrival his alcohol level was 259, currently patient has obvious tremor he appears flushed, patient is being treated with Librium 75 mg every 6 hours, Ativan 2 mg as needed to prevent seizure, will continue to monitor will monitor electrolytes, with recommendation to follow 10/05 today patient is more calmer and clinically stable and does not appear to be in DTs and there are no seizures while in the heart, patient is followed with CIWA protocol and being treated with Librium 75 mg every 6 hours will taper the Librium to 50 mg every 6 hours from tomorrow, will continue to monitor will have PT OT evaluate the patient Exam Narrative: Exam Narrative: Patient is comfortable, NAD HEENT: eyes are clear and none icteric LUNGS:CTA HEART: RR S1S2 ABD: BS+, Soft and nontender Lower extremities: no edema SKIN: nonjaundiced Neuro: grossly intact. Objective Data Vital Signs Vital Signs: Vital Signs - 24 hr 10/04/20 18:00 10/04/20 20:00 10/04/20 21:48 Temperature 97.8 F Pulse Rate 88 89 85 Pulse Rate [NIBP] 88 97 Respiratory Rate 12 Blood Pressure 196/117 H Pulse Oximetry 97 10/04/20 22:00 10/04/20 23:41 10/05/20 00:00 Temperature 97.8 F Pulse Rate 89 82 Pulse Rate [NIBP] 89 84 Respiratory Rate 20 Blood Pressure 137/83 137/83 Pulse Oximetry 95 10/05/20 02:00 10/05/20 04:00 10/05/20 05:00 Temperature Pulse Rate 74 72 Pulse Rate [NIBP] 74 72 72 Respiratory Rate Blood Pressure 151/86 H Pulse Oximetry 10/05/20 06:00 10/05/20 08:00 10/05/20 08:40 Temperature Pulse Rate 81
[2020-10-05] MEDS: QUEtiapine FUMARATE 100 MG TABLET 300 MG PO (20:20)
[2020-10-06] VITALS (8 sets, daily range): BP systolic 132–148; BP diastolic 83–98; PULSE 73–105; RESP 18; TEMP 36.3–36.4; O2SAT 97–98
[2020-10-06] MEDS: LORazepam INJ (*CRX) 2 MG/ML VIAL IV PUSH (02:21)
[2020-10-06 04:49] LABS: Hematocrit 38.8 % (42.0-52.0); Hemoglobin 13.3 g/dL (14.0-18.0); Mean Corpuscular HGB Conc 34.3 g/dl (32-36); Mean Corpuscular Hemoglobin 35.4 pg (26-34); Mean Corpuscular Volume 103.2 fl (80-100); Mean Platelet Volume 10.2 fl (7.4-10.4); Platelet Count Result 307 k/mm3 (150-375); Red Blood Count 3.76 M/mm3 (4.6-6.20); White Blood Count 5.7 K/mm3 (4.5-10.0)
[2020-10-06] MEDS: chlordiazePOXIDE (*CRX) 25 MG CAPSULE 75 MG PO (06:00)
[2020-10-06 06:35] LABS: Alanine Aminotransferase 81 U/L (4-50); Albumin Level 3.6 g/dL (3.5-5.1); Alkaline Phosphatase 77 U/L (38-126); Anion Gap 7 mmol/L (8-16); Aspartate Amino Transferase 45 U/L (17-59); Bilirubin,Total 0.3 mg/dL (0.2-1.3); Blood Urea Nitrogen 4 mg/dL (9-20); Calcium 8.9 mg/dL (8.4-10.2); Carbon Dioxide 29 mmol/L (22-30); Chloride 103 mmol/L (98-107); Estimated CRCL calculation 99 ml/min; Estimated Glomerular Filt Rate > 60; Glucose 89 mg/dL (75-110); Magnesium 1.6 mg/dL (1.6-2.3); Potassium 3.5 mmol/L (3.4-5.0); Sodium 139 mmol/L (137-145)
[2020-10-06] MEDS: THIAMINE HCL 100 MG TABLET PO (08:15)
[2020-10-06] MEDS: PANTOPRAZOLE SOD SESQUIHYDRATE 20 MG TAB PO (08:15)
[2020-10-06] MEDS: lisinopriL 20 MG TABLET PO (08:15)
[2020-10-06] MEDS: MAGNESIUM OXIDE 400 MG TABLET PO (08:15)
[2020-10-06] MEDS: METOPROLOL TARTRATE 50 MG TAB PO (08:15)
[2020-10-06] MEDS: POTASSIUM CHLORIDE 20 MEQ TABLET 40 MEQ PO (09:27)
--- NOTE | 2020-10-17 16:15 | PM.IMPN ---
Progress Note: A&P Assessment and Plan (1) Alcohol intoxication: Code(s): F10.929 - Alcohol use, unspecified with intoxication, unspecified Status: Acute Assessment and Plan: 10/04/20 15:30 50-year-old male with history of chronic alcohol abuse and recurrent withdrawal patient presented emergency department stating there is having family issues as well as PTSD while he was in in the war in [place], patient states he had been drinking 5th of vodka every day for last few days, he noticed more tremor and felt he was withdrawing even though upon arrival his alcohol level was 259, currently patient has obvious tremor he appears flushed, patient is being treated with Librium 75 mg every 6 hours, Ativan 2 mg as needed to prevent seizure, will continue to monitor will monitor electrolytes, with recommendation to follow (2) Alcohol withdrawal: Qualifiers: Complication of substance-induced condition: uncomplicated Qualified Code(s): F10.230 - Alcohol dependence with withdrawal, uncomplicated Code(s): F10.239 - Alcohol dependence with withdrawal, unspecified Status: Acute Assessment and Plan: Plan is above (3) Anxiety and depression: Code(s): F41.9 - Anxiety disorder, unspecified; F32.9 - Major depressive disorder, single episode, unspecified Status: Acute Assessment and Plan: Will continue home regimen and monitor (4) Posttraumatic stress disorder: Code(s): F43.10 - Post-traumatic stress disorder, unspecified Status: Inactive Assessment and Plan: Patient will benefit from psychiatry care (5) Elevated LFTs: Code(s): R79.89 - Other specified abnormal findings of blood chemistry Status: Acute Assessment and Plan: 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 Objective Data Meds/Results Radiology Results: ITS Impressions Face CT 10/03/20 12:03 IMPRESSION: 1. No facial fracture. Quality VTE Prophylaxis VTE prophylaxis: mechanical ordered
--- NOTE | 2020-10-17 16:17 | PM.DS ---
DS: Admitting Diagnosis Admitting Diagnosis Admitting Diagnosis: Chief Complaint: Alcohol withdrawal symptoms. DS: Discharge Diagnosis Discharge Diagnosis (1) Alcohol intoxication: Code(s): F10.929 - Alcohol use, unspecified with intoxication, unspecified Status: Acute Assessment and Plan: 10/04/20 15:30 50-year-old male with history of chronic alcohol abuse and recurrent withdrawal patient presented emergency department stating there is having family issues as well as PTSD while he was in in the war in [place], patient states he had been drinking 5th of vodka every day for last few days, he noticed more tremor and felt he was withdrawing even though upon arrival his alcohol level was 259, currently patient has obvious tremor he appears flushed, patient is being treated with Librium 75 mg every 6 hours, Ativan 2 mg as needed to prevent seizure, will continue to monitor will monitor electrolytes, with recommendation to follow (2) Alcohol withdrawal: Qualifiers: Complication of substance-induced condition: uncomplicated Qualified Code(s): F10.230 - Alcohol dependence with withdrawal, uncomplicated Code(s): F10.239 - Alcohol dependence with withdrawal, unspecified Status: Acute Assessment and Plan: Plan is above (3) Anxiety and depression: Code(s): F41.9 - Anxiety disorder, unspecified; F32.9 - Major depressive disorder, single episode, unspecified Status: Acute Assessment and Plan: Will continue home regimen and monitor (4) Posttraumatic stress disorder: Code(s): F43.10 - Post-traumatic stress disorder, unspecified Status: Inactive Assessment and Plan: Patient will benefit from psychiatry care (5) Elevated LFTs: Code(s): R79.89 - Other specified abnormal findings of blood chemistry Status: Acute Assessment and Plan: 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 <Mar Howell PA-C - Last Filed: 10/03/20 22:19> Narrative: This is a 50-year-old male with history of alcoholism, alcohol withdrawal with seizures, and posttraumatic stress disorder who presented to the emergency department earlier today via EMS from home with reports of alcohol withdrawal symptoms. He has had a problem with alcohol for decades and has had periods of sobriety with the help of [facility] and a stent at inpatient rehab a couple of years ago. He endorses drinking about 1/5th of vodka per day and will start to have withdrawal symptoms approximately 12 hours or less after his last drink. Incidentally the patient was hospitalized at the [facility] in [place] earlier this week for alcohol withdrawal and was discharged home just yesterday. Reportedly he was not sent home with any medication to help with his withdrawal symptoms, and he began feeling very anxious last evening and I believe at that time he drank about a 1/5th of vodka before going to bed. About 10 hours thereafter he began to feel shaky and had another drink. This is causing him a lot of stress as he is frustrated with his alcoholism after falling on the steps today and cracking a tooth. Thus he came in today because he wants help. Currently he feels very anxious with mild tremors and racing heart. He also reports that when he closes is eyes he ?sees things I do not want to see? (he is referring to his PTSD from time spent in [place]). No fever, chills, sweats, cold or flu symptoms, chest pain, shortness of breath, nausea, or vomiting. <Mar Howell PA-C - Last Filed: 10/03/20 22:19> Hospital Course: 50-year-old male with history of chronic alcohol abuse and recurrent withdrawal [place]
== END 2020-10-06 11:14 | disposition home or self-care (01) | DRG 775 ==
LOC: ANHED 13:12 → ANH3MED 14:02 → ANHICU 23:02
PROVIDERS: Admitting Provider Family Medicine; Emergency Provider Emergency Medicine; Visit Provider Family Medicine
DX: F10.230 Alcohol dependence with withdrawal, uncomplicated (principal); F10.220 Alcohol dependence with intoxication, uncomplicated; Y90.8 Blood alcohol level of 240 mg/100 ml or more; Z20.822 Contact with and (suspected) exposure to COVID-19; F41.9 Anxiety disorder, unspecified; F32.9 Major depressive disorder, single episode, unspecified; F43.10 Post-traumatic stress disorder, unspecified; Y36.90XS War operations, unspecified, sequela; R79.89 Other specified abnormal findings of blood chemistry; F17.210 Nicotine dependence, cigarettes, uncomplicated; F17.220 Nicotine dependence, chewing tobacco, uncomplicated; I10 Essential (primary) hypertension; S02.5XXA Fracture of tooth (traumatic), initial encounter for closed fracture; W10.9XXA Fall (on) (from) unspecified stairs and steps, initial encounter; Z28.21 Immunization not carried out because of patient refusal; Z79.899 Other long term (current) drug therapy; Z88.0 Allergy status to penicillin
CPT/HCPCS: 36415; 70486; 80053; 80307; 81003; 82550; 82948; 83735; 85025; 85027; 93005; 96365; 96366; 96375; 97161; 99285; A9270; C9803; G0378; G0379; J2060; J3360; J3411; J3475; J7121; U0003; U0005

== ENCOUNTER 2020-10-09 15:54 | Emergency (ER) | payer SELFPAY ==
[2020-10-09 15:55] VITALS: PULSE 97; RESP 18; TEMP 36.6; O2SAT 97
--- NOTE | 2020-10-09 15:59 | ECG_ITS ---
Measurements Intervals [place] Rate: 97 P: 42 DC: 152 QRS: -12 QRSD: 100 T: 42 QT: 365 QTc: 466 Interpretive Statements SINUS RHYTHM BASELINE ARTIFACT- I, III, AVL NORMAL ECG Electronically Signed On 10-11-2020 20:17:48 [employer] by Ed Kulkarni D.O.
--- NOTE | 2020-10-09 16:08 | ED.GENADULT ---
HPI - General Adult General Chief complaint: Alcohol Stated complaint: alcohol abuse Time Seen by Provider: 10/09/20 15:58 History of Present Illness HPI narrative: Patient is a 50-year-old male who presents ER with alcohol intoxication. Patient is known to be an alcoholic with history of PTSD. Patient reports he is seeing people that were his friends back in the war at this time and it makes him sad. He says it occurs when he is drinking alcohol. He denies any other medical issues at this time. He is having no chest pain/shortness of breath/nausea/vomiting. He is having no palpitations or shakes which she has had previously when he is in alcohol withdrawal. Related Data Home Medications Medication Instructions Recorded Confirmed quetiapine 300 mg PO HS 06/12/19 10/03/20 omeprazole 20 mg PO DAILY 06/07/20 10/03/20 lisinopril 20 mg PO DAILY 10/03/20 10/03/20 Allergies Allergy/AdvReac Type Severity Reaction Status Date / Time Penicillins Allergy Unknown hive Verified 10/09/20 16:06 Review of Systems Review of Systems: All systems reviewed & are unremarkable except as noted in HPI and below Constitutional: Constitutional: Denies chills, Denies fever(s) and Denies weakness Cardiovascular: Cardiovascular: Denies chest pain, Denies rapid heart rate and Denies radiating jaw, neck or arm pain Respiratory: Respiratory: Denies cough, Denies dyspnea and Denies wheezing Gastrointestinal: Gastrointestinal: Denies abdominal pain, Denies diarrhea, Denies nausea and Denies vomiting Psychiatric: Psychiatric: Denies homicidal ideation and Denies suicidal ideation Comments: PTSD [facility] Past Medical History Medical History (Updated 10/09/20 @ 16:16 by Erick Matos MD) Alcohol withdrawal seizure Anxiety Depression Essential hypertension Nicotine use Posttraumatic stress disorder Seasonal allergies Surgical History Surgical History (Updated 10/03/20 @ 17:59 by Mar Howell PA-C) History of appendectomy History of surgical removal of ganglion cyst Right wrist. History of tonsillectomy History of tonsillectomy and adenoidectomy History of umbilical hernia repair Family History Family History Father Heart disease Mother Heart disease Social History Social History (Updated 10/03/20 @ 18:01 by Mar Howell PA-C) Social History: The patient lives in [place] alone. He has 2 children. 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 Drinks 1/5 of vodka a day. He denies illicit substance use. His mother, Bonnie Sandhu, is his surrogate decision maker and he wishes to be a full code. Smoking packs per day: 0.5 Smoking cigarettes per day: 10.0 Years smoked: 25 Smoking pack-years: 12.50 Smoking status: Never smoker Tobacco type: cigarettes Smokeless tobacco user: chewing tobacco Alcohol intake: current Drinks per week: 7 Substance use: never Substance use type: does not use Other substance usage details: drinks one fifth voldka daily Last use: 07/08/20 Gender identity (if verbalized by the patient): Male Spiritual care concerns: No Exam Narrative: Exam Narrative: GENERAL: Intoxicated-appearing, well-nourished, and in no acute distress. HEAD: Normocephalic, atraumatic. EYES: PERRL and EOMI. CHEST: Clear to auscultation. No respiratory distress. HEART: Regular rate and rhythm. Normal peripheral pulses. ABDOMEN: Soft, nontender, nondistended. EXTREMITIES: Normal range of motion. No edema. SKIN: Warm, dry, no rash. NEURO: Tremors. Alert and oriented x3. PSYCH: Reports flashbacks but is not responding to internal stimuli. No thoughts of self-harm or harm towards others. Course Reevaluation(s) Reevaluation #1: Patient reports no medical complaints and would like
[2020-10-09 16:36] VITALS: BP 113/73; PULSE 94; RESP 21; O2SAT 97
== END 2020-10-09 16:39 | disposition home or self-care (01) ==
PROVIDERS: Emergency Provider Emergency Medicine
DX: F10.129 Alcohol abuse with intoxication, unspecified (principal); F43.10 Post-traumatic stress disorder, unspecified; F41.9 Anxiety disorder, unspecified; F32.9 Major depressive disorder, single episode, unspecified; I10 Essential (primary) hypertension; F17.210 Nicotine dependence, cigarettes, uncomplicated; Y90.9 Presence of alcohol in blood, level not specified
CPT/HCPCS: 93005; 99283

== ENCOUNTER 2020-12-13 15:20 | Emergency (ER) | payer OTHER, SELFPAY ==
--- NOTE | ~2020-12-13 | XR_ITS ---
EXAMINATION: XR chest 1V portable EXAM DATE: 12/13/2020 15:35 INDICATION: Midsternal chest pain. TECHNIQUE: Portable AP frontal chest x-ray was obtained. Comparison is made to prior examination from 09/19/2020. FINDINGS: The lungs are clear. There are no pleural effusions. The cardiomediastinal silhouette is within normal limits. There is no pneumothorax suspected. The bones and soft tissues are unremarkab le. IMPRESSION: Unremarkable chest x-ray exam. Reviewed, dictated and finalized at location B.
[2020-12-13 15:16] VITALS: BP 155/105; PULSE 131; RESP 20; TEMP 36.8; O2SAT 96
[2020-12-13 15:20] VITALS: PULSE 76
--- NOTE | 2020-12-13 15:25 | ECG_ITS ---
Measurements Intervals [place] Rate: 118 P: 43 [place]: 152 QRS: 17 QRSD: 89 T: 45 QT: 314 QTc: 441 Interpretive Statements SINUS TACHYCARDIA DELAYED PRECORDIAL R/S TRANSITION ABNORMAL ECG Electronically Signed On 12-13-2020 16:35:58 CDT by Ed Kulkarni D.O.
--- NOTE | 2020-12-13 15:43 | ED.CHESTPAIN ---
HPI - Chest Pain General Chief Complaint: Chest Pain Stated Complaint: CP Source: patient, RN notes reviewed and old records reviewed Mode of arrival: ambulatory Limitations: no limitations History of Present Illness HPI narrative: This is a 50 year old male with history of alcohol abuse, PTSD, and anxiety who presents for evaluation of chest pain. He drinks a fifth of vodka daily. He is unsure if he has been drinking today or yesterday. He called EMS because he developed midsternal nonradiating chest pain. He describes his pain as throbbing. He denies nausea, vomiting, fever, chills, abdominal pain, cough or sob. He has been admitted here a couple times for alcohol withdrawal. He denies history of melena, cirrhosis or esophageal varices. Related Data Home Medications Medication Instructions Recorded Confirmed quetiapine 300 mg PO HS 06/12/19 12/13/20 omeprazole 20 mg PO DAILY 06/07/20 12/13/20 lisinopril 20 mg PO DAILY 10/03/20 12/13/20 Allergies Allergy/AdvReac Type Severity Reaction Status Date / Time Penicillins Allergy Unknown hive Verified 12/13/20 15:21 Review of Systems Review of Systems: All systems reviewed & are unremarkable except as noted in HPI and below PMFSH Past Medical History Medical History Alcohol withdrawal seizure Anxiety Depression Essential hypertension Nicotine use Posttraumatic stress disorder Seasonal allergies Surgical History Surgical History History of appendectomy History of surgical removal of ganglion cyst Right wrist. History of tonsillectomy History of tonsillectomy and adenoidectomy History of umbilical hernia repair Family History Family History Father Heart disease Mother Heart disease Social History Social History (Updated 10/03/20 @ 18:01 by Mar Howell PA-C) Social History: The patient lives in [place] alone. He has 2 children. 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 Drinks 1/5 of vodka a day. He denies illicit substance use. His mother, Bonnie Sandhu, is his surrogate decision maker and he wishes to be a full code. Smoking packs per day: 0.5 Smoking cigarettes per day: 10.0 Years smoked: 25 Smoking pack-years: 12.50 Smoking status: Never smoker Tobacco type: cigarettes Smokeless tobacco user: chewing tobacco Alcohol intake: current Drinks per week: 7 Substance use: never Substance use type: does not use Other substance usage details: drinks one fifth voldka daily Last use: 07/08/20 Gender identity (if verbalized by the patient): Male Spiritual care concerns: No Exam Const: General: no acute distress and alert Orientation/consciousness: patient oriented x3 Eyes: EOM: EOMs intact bilaterally Resp: Effort & Inspection: normal respiratory effort and no retractions Auscultation: clear to auscultation bilaterally Cardio: Rate: tachycardic Rhythm: regular rhythm Heart sounds: no murmurs GI: GI Palp: Yes Soft to palpation, No Tenderness to palpation present (GI) and No Guarding due to palpation present (GI) Auscultation: normal bowel sounds Skin: General skin exam: normal color Rashes: no rashes Neuro: General: patient oriented x3, moves all extremities and CN's II-XI intact bilaterally Psych: Mental Status: mental status grossly normal Course Reevaluation(s) Reevaluation #1: Patient signed out AMA under care of his mother. He wanted to leave to go to [facility] per nursing staff. Date: 12/13/20 Time: 15:00 Vital Signs Vital signs: Vital Signs Temperature 98.2 F 12/13/20 15:16 Pulse Rate 131 H 12/13/20 15:16 Respiratory Rate 20 12/13/20 15:16 Blood Pressure 155/105
[2020-12-13] MEDS: LACTATED RINGERS 1,000 ML 999 ML IV CONT (15:54)
[2020-12-13 16:00] LABS: Basophils Absolute Auto 0.1 K/mm3 (0.0-0.1); Basophils Percent Auto 1.3 % (0.2-1.2); Eosinophils Absolute Auto 0.1 K/mm3 (0-0.3); Eosinophils Percent Auto 0.8 % (0-4.4); Hematocrit 48.4 % (42.0-52.0); Hemoglobin 16.8 g/dL (14.0-18.0); Immature Granulocyte Absolute 0.02 K/mm3 (0.00-0.031); Immature Granulocyte Percent A 0.3 % (0-0.5); Lymphocytes Absolute Auto 2.77 K/mm3 (0.9-3.2); Lymphocytes Percent Auto 36.4 % (18.3-44.2); Mean Corpuscular HGB Conc 34.7 g/dl (32-36); Mean Corpuscular Hemoglobin 34.9 pg (26-34); Mean Corpuscular Volume 100.4 fl (80-100); Mean Platelet Volume 10.3 fl (7.4-10.4); Monocytes Absolute Auto 0.7 K/mm3 (0.1-0.6); Monocytes Percent Auto 9.2 % (2.6-8.5); Platelet Count Result 288 k/mm3 (150-375); Red Blood Count 4.82 M/mm3 (4.6-6.20); Red Cell Distribution Width 12.4 % (11.5-14.5); White Blood Count 7.6 K/mm3 (4.5-10.0)
[2020-12-13 16:12] LABS: INR 0.9; Partial Thromboplastin Time 23.5 SECONDS (22.3-36.8); Prothrombin Time 12.2 Seconds (11.1-14.7)
[2020-12-13 16:14] LABS: Lactic Acid Reflex 2.7 mmol/L (0.7-2.1)
[2020-12-13 16:15] LABS: D Dimer 1.71 ug/mL (<0.48)
--- NOTE | 2020-12-13 16:16 | PC.NURSE ---
Call to patient's mother Bonnie Sandhu @ [phone] per pt request. States he wants her to come and get him to take him to the [facility]. When pt found out mother was coming starts to cry. Dr. Castro made aware of development.
[2020-12-13 16:25] LABS: Add Urine Microscopic? YES; Appearance Urine Clear (Clear); Bilirubin Urine Negative (Negative); Blood Urine Negative (Negative); Color Urine Yellow (Yellow); Glucose Urine UA Negative (Negative); Ketones Urine Trace mg/dL (Negative); Leukocyte Esterase Ur Negative LEU/UL (Negative); Mucus Urine Rare /lpf; Nitrate Urine Negative (Negative); Protein Urine 2+ mg/dL (Negative); Specific Grav Ur 1.008 (1.001-1.035); Urobilinogen Urine Negative mg/dL (<2.0); WBC Urine 0-3 /hpf
--- NOTE | 2020-12-13 16:34 | PC.NURSE ---
Repeat labs being drawn due to hemolysis per request of lab.
--- NOTE | 2020-12-13 16:37 | PC.NURSE ---
Pt's mother here, states I didn't know you were out of rehab ! Pt crying, states mom, [facility]. I don't know what's wrong with me, I'm so shakey . Explained to patient that this is most likely in response to him drinking a fifth of liquor. Explained to patient that his chest pain may be related to alcohol but by leaving he will have to sign AMA. Pt tearful, states that's fine, I need to go over there . Pt and mother sign AMA paper after being informed of the risks. IV dc'd cath intact. Pt remains tearful. Mother states she will [facility] and made aware that he's not to drive to due intake of ETOH. Pt placed in w/c and assisted to exit per Francesca, devulcanizer charger @ [id number].
--- NOTE | 2020-12-13 16:38 | PC.NURSE ---
Unsuccessful x2 additional attempts for blood. [facility].
[2020-12-13 16:40] LABS: Amphetamine Screen Urine Negative (Negative); Barbiturate Screen Urine Negative (Negative); Benzodiazepines Screen Urine Positive (Negative); Cannabinoid Screen Urine Negative (Negative); Cocaine Screen Urine Negative (Negative); Methadone Screen Urine Negative (Negative); Opiate Screen Urine Negative (Negative); Phencyclidine Screen Urine Negative (Negative)
[2020-12-13 19:00] LABS: Reflex Lactic Acid Yes or No Add Lactic
== END 2020-12-13 16:46 | disposition left against medical advice (07) ==
PROVIDERS: Emergency Provider General Practice
DX: R07.9 Chest pain, unspecified (principal); F10.10 Alcohol abuse, uncomplicated; F43.10 Post-traumatic stress disorder, unspecified; F41.9 Anxiety disorder, unspecified; I10 Essential (primary) hypertension; F17.210 Nicotine dependence, cigarettes, uncomplicated; R00.0 Tachycardia, unspecified
CPT/HCPCS: 36415; 71045; 80307; 81001; 82140; 83605; 83735; 84484; 85025; 85380; 85610; 85730; 93005; 96360; 99283; J7120

== ENCOUNTER 2021-01-20 17:38 | Emergency (ER) | payer OTHER, SELFPAY ==
[2021-01-20] VITALS (12 sets, daily range): BP systolic 144–161; BP diastolic 88–98; PULSE 113–130; RESP 11–21; TEMP 36.6; O2SAT 89–98
--- NOTE | ~2021-01-20 | XR_ITS ---
EXAMINATION: XR hand LT min 3V, XR hand RT min 3V DATE: 01/20/2021 19:21 INDICATION: Bilateral hand pain and swelling TECHNIQUE: 1. Posteroanterior, oblique and lateral views of the left hand were obtained. 2. Posteroanterior, oblique and lateral views of the right hand were obtained. COMPARISON: None. FINDINGS: Bone alignment is normal at the bilateral hands. No fracture. Joint spaces are normal. No cortical er osions or periosteal reaction. Nonspecific diffuse soft tissue swelling about the bilateral hands and wrists. No soft tissue gas or radiopaque foreign bodies. IMPRESSION: 1. Diffuse soft tissue swelling at the bilateral hands and wrists of indeterminate etiology. No osseo us abnormality. Reviewed, dictated and finalized at location A. IMPRESSION: 1. Diffuse soft tissue swelling at the bilateral hands and wrists of indetermin ate etiology. No osseous abnormality.
--- NOTE | ~2021-01-20 | CT_ITS ---
EXAMINATION: CT facial bones wo con DATE: 01/20/2021 18:47 INDICATION: Facial injury post fall TECHNIQUE: Computed tomography (CT) of the facial bones and maxillofacial region was performed withou t intravenous contrast. Coronal reconstructions were obtained. Automated exposure control and iterati ve reconstruction technique were employed. The dose-length product was 290.42 mGy-cm. COMPARISON: 10/03/2020 FINDINGS: Nondisplaced fracture with minimal posterior angulation at the anterior left and right nasal bones wi th soft tissue swelling over the bridge of the nose. No other acute fractures identified. Specificall y the zimmerman of the orbits and paranasal sinuses, the mandible, zygomatic arches and pterygoid plates are intact. Temporomandibular joints are normal alignment with mild osteoarthritis on the left and mo derate to severe on the right. Orbits are normal. Postoperative changes with resection of portion of the medial zimmerman of both the left and right maxillary sinuses. Mild sclerotic wall thickening of the bilateral maxillary sinuses consistent with sequela of chronic sinusitis. There is diffuse mild mucos al thickening in the bilateral maxillary and ethmoid sinuses. Again seen is high attenuation material mixed with gas in the left vestibule of the oral cavity which could represent as previously reported chewing tobacco, or blood. Large dental caries which erodes to the roots of the right maxillary firs t molar. IMPRESSION: 1. Nondisplaced, minimally angulated fractures of the anterior left and right nasal bones. Reviewed, dictated and finalized at location A. IMPRESSION: 1. Nondisplaced, minimally angulated fractures of the anterior left and right n augie bones.
[2021-01-20 18:46] LABS: Basophils Absolute Auto 0.1 K/mm3 (0.0-0.1); Basophils Percent Auto 1.3 % (0.2-1.2); Eosinophils Percent Auto 0.7 % (0-4.4); Hematocrit 40.1 % (42.0-52.0); Hemoglobin 13.7 g/dL (14.0-18.0); Immature Granulocyte Absolute 0.02 K/mm3 (0.00-0.031); Immature Granulocyte Percent A 0.3 % (0-0.5); Lymphocytes Absolute Auto 1.91 K/mm3 (0.9-3.2); Mean Corpuscular HGB Conc 34.2 g/dl (32-36); Mean Corpuscular Hemoglobin 35.2 pg (26-34); Mean Corpuscular Volume 103.1 fl (80-100); Mean Platelet Volume 9.6 fl (7.4-10.4); Monocytes Absolute Auto 0.7 K/mm3 (0.1-0.6); Monocytes Percent Auto 11.1 % (2.6-8.5); Neutrophils Absolute Auto 3.3 K/mm3 (1.3-6.7); Neutrophils Percent Auto 54.6 % (45.5-73.1); Platelet Count Result 349 k/mm3 (150-375); Red Blood Count 3.89 M/mm3 (4.6-6.20); Red Cell Distribution Width 13.6 % (11.5-14.5)
[2021-01-20] MEDS: PHENobarbital (*CRX) 60 MG TABLET PO (18:54)
[2021-01-20] MEDS: THIAMINE HCL 200 MG/2 ML VIAL 500 MG IV PUSH (18:54)
[2021-01-20] MEDS: DEXTROSE 5%/LACTATED RINGERS 1,000 ML 500 ML IV CONT (18:54)
[2021-01-20 19:02] LABS: Lipase 45 U/L (23-300)
[2021-01-20 19:29] LABS: Ethanol 339 mg/dL (<10)
--- NOTE | 2021-01-20 20:26 | PC.NURSE ---
Pt continuously repeating that he wants to call his mom and go home. Pt repeatedly gets up and sets off bed alarm. Tech in room with pt. EDP aware. Mother called to give pt a ride home.
--- NOTE | 2021-01-20 20:35 | ED.ALCOHOL ---
HPI - Alcohol General Chief Complaint: Alcohol Stated Complaint: AMS Time Seen by Provider: 01/20/21 17:48 Source: EMS Mode of arrival: EMS Limitations: clinical condition History of Present Illness HPI narrative: 50-year-old male Apparently EMS has a high degree of familiarity with this patient They were summoned by police who had been notified that the patient was walking irregularly along a street wrapped in a blanket Paramedics found him to be very intoxicated and brought him to the ER for evaluation Patient states that he had finished 1/5 of vodka and was on the way to the liquor store to buy more He really has no other complaints There are some facial abrasions and the patient notes that is because of a fall but he is not sure exactly when that occurred MD complaint: alcohol intoxication Related Data Home Medications Medication Instructions Recorded Confirmed quetiapine 300 mg PO HS 06/12/19 12/13/20 omeprazole 20 mg PO DAILY 06/07/20 12/13/20 lisinopril 20 mg PO DAILY 10/03/20 12/13/20 Allergies Allergy/AdvReac Type Severity Reaction Status Date / Time Penicillins Allergy Unknown hive Verified 01/20/21 19:19 Review of Systems Review of Systems: ROS unobtainable: Yes other (Very limited due to intoxication) Constitutional: Constitutional: Denies fever(s) ENT: Comments: Facial abrasions Cardiovascular: Cardiovascular: Denies chest pain Respiratory: Respiratory: Denies cough Gastrointestinal: Gastrointestinal: Denies diarrhea and Denies vomiting Neurologic: Comments: No seizures PMFSH Past Medical History Medical History Alcohol withdrawal seizure Anxiety Depression Essential hypertension Nicotine use Posttraumatic stress disorder Seasonal allergies Surgical History Surgical History History of appendectomy History of surgical removal of ganglion cyst Right wrist. History of tonsillectomy History of tonsillectomy and adenoidectomy History of umbilical hernia repair Family History Family History Father Heart disease Mother Heart disease Social History Social History (Updated 10/03/20 @ 18:01 by Mar Howell PA-C) Social History: The patient lives in [place] alone. He has 2 children. 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 Drinks 1/5 of vodka a day. He denies illicit substance use. His mother, Bonnie Sandhu, is his surrogate decision maker and he wishes to be a full code. Smoking packs per day: 0.5 Smoking cigarettes per day: 10.0 Years smoked: 25 Smoking pack-years: 12.50 Smoking status: Never smoker Tobacco type: cigarettes Smokeless tobacco user: chewing tobacco Alcohol intake: current Drinks per week: 7 Substance use: never Substance use type: does not use Other substance usage details: drinks one fifth voldka daily Last use: 07/08/20 Gender identity (if verbalized by the patient): Female Spiritual care concerns: No Exam Const: Limitations: altered mental status (Intoxicated) HENMT: Other: Abrasions to forehead nose upper lip consistent with falling, and mild tenderness, no active epistaxis, no nasal crepitus, no mandibular tenderness Eyes: Pupils: Equal, round and reactive pupils present EOM: EOMs intact bilaterally Neck: Neck: no meningeal signs Chest: Chest palpation & inspection: normal inspection of the chest Resp: Effort & Inspection: normal respiratory effort Auscultation: clear to auscultation bilaterally, no rales, no rhonchi and no wheezes Cardio: Rate: regular rate and tachycardic Rhythm: regular rhythm GI: GI Palp: Yes Soft to palpation and No Tenderness to palpation present (GI) Ski
[2021-01-20 20:57] LABS: Alanine Aminotransferase 58 U/L (4-50); Albumin Level 4.3 g/dL (3.5-5.1); Alkaline Phosphatase 102 U/L (38-126); Anion Gap 18 mmol/L (8-16); Aspartate Amino Transferase 110 U/L (17-59); Bilirubin,Total 0.3 mg/dL (0.2-1.3); Blood Urea Nitrogen 5 mg/dL (9-20); Carbon Dioxide 25 mmol/L (22-30); Chloride 107 mmol/L (98-107); Estimated CRCL calculation 112 ml/min; Estimated Glomerular Filt Rate > 60; Glucose 116 mg/dL (75-110); Magnesium 1.6 mg/dL (1.6-2.3); Potassium 3.4 mmol/L (3.4-5.0); Sodium 150 mmol/L (137-145)
[2021-01-20] MEDS: LACTATED RINGERS 1,000 ML 999 ML IV CONT (21:47)
--- NOTE | 2021-01-20 22:03 | PC.NURSE ---
Pt refusing 900 ml of remaining IV fluids. Per discussion with doc, pt to go home.
== END 2021-01-20 22:24 | disposition home or self-care (01) ==
PROVIDERS: Emergency Provider Emergency Medicine
DX: S02.2XXA Fracture of nasal bones, initial encounter for closed fracture (principal); F10.129 Alcohol abuse with intoxication, unspecified; E87.0 Hyperosmolality and hypernatremia; F41.9 Anxiety disorder, unspecified; F32.9 Major depressive disorder, single episode, unspecified; I10 Essential (primary) hypertension; F43.10 Post-traumatic stress disorder, unspecified; F17.210 Nicotine dependence, cigarettes, uncomplicated; F17.220 Nicotine dependence, chewing tobacco, uncomplicated; W17.89XA Other fall from one level to another, initial encounter; Y90.8 Blood alcohol level of 240 mg/100 ml or more; Z79.899 Other long term (current) drug therapy
CPT/HCPCS: 36415; 70486; 73130; 80053; 80307; 83690; 83735; 85025; 96361; 96374; 99284; A9270; J3411; J7120; J7121

== ENCOUNTER 2024-07-22 02:45 | Inpatient (IN) | payer OTHER, SELFPAY ==
[2024-07-22] VITALS (9 sets, daily range): BP systolic 103–190; BP diastolic 73–119; PULSE 102–129; RESP 16–20; TEMP 36.2–37; O2SAT 95–99; BMI 28.7
--- NOTE | 2024-07-22 02:46 | PC.NURSE ---
Triage VS obtained but unable to chart d/t system going down for update. VS Obtained 0254 98.0 136 22 97 169/99
[2024-07-22] MEDS: chlordiazePOXIDE (*CRX) 25 MG CAPSULE PO ×2 (07:33→18:38)
--- NOTE | 2024-07-22 08:32 | ED_ITS ---
HPI - Alcohol General Chief Complaint: Alcohol Stated Complaint: etoh Time Seen by Provider: 07/22/24 08:29 History of Present Illness HPI narrative: 54M h/o ETOH use d/o, withdrawal, p/w shakes and c/f withdrawal. Last drink 24h ago. Also with nausea vomiting. Related Data Home Medications ?Medication ?Instructions ?Recorded ?Confirmed ?Last Taken ?Type quetiapine 400 mg tablet 300 mg PO HS 06/12/19 12/13/20 06/04/20 History omeprazole 20 mg capsule,delayed 20 mg PO DAILY 06/07/20 12/13/20 Unknown History release lisinopril 20 mg tablet 20 mg PO DAILY 10/03/20 12/13/20 Unknown History Allergies Allergy/AdvReac Type Severity Reaction Status Date / Time Penicillins Allergy Unknown hive Verified 01/20/21 19:19 Review of Systems 2 Review of Systems: All systems reviewed & are unremarkable except as noted in HPI and below PMFSH Past Medical History Medical History Alcohol withdrawal seizure Anxiety Depression Essential hypertension Nicotine use Posttraumatic stress disorder Seasonal allergies Surgical History Surgical History History of appendectomy History of surgical removal of ganglion cyst Right wrist. History of tonsillectomy History of tonsillectomy and adenoidectomy History of umbilical hernia repair Family History Family History Father Heart disease Mother Heart disease Social History Social History (Updated 10/03/20 @ 18:01 by Mar Howell PA-C) Social History: The patient lives in [place] alone. He has 2 children. 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 Drinks 1/5 of vodka a day. He denies illicit substance use. His mother, Bonnie Sandhu, is his surrogate decision maker and he wishes to be a full code. Smoking packs per day: 0.5 Smoking cigarettes per day: 10.0 Years smoked: 25 Smoking pack-years: 12.50 Smoking status: Never smoker Tobacco type: cigarettes Smokeless tobacco user: chewing tobacco Alcohol intake: current Drinks per week: 7 Alcohol use details: alcoholism Substance use: never Substance use type: does not use Other substance usage details: drinks one fifth voldka daily Last use: 07/08/20 Gender identity (if verbalized by the patient): Female Sexual Orientation (if Verbalized by the Patient): Straight or Heterosexual Spiritual care concerns: No Exam 2 Narrative: EXAMINATION OF ORGAN SYSTEMS/BODY AREAS: Constitutional: Vital signs per nursing GENERAL:[No acute distress.] Malodorous HEAD: Normal with no signs of head trauma. EYES: EOMI, conjunctiva normal ENT: Hearing grossly intact LUNGS: Nonlabored breathing. HEART: Tachycardic ABD: No distension EXT: Normal range of motion SKIN: [No rashes or lesions.] NEURO: [Alert and oriented x 3. ] Able to ambulate with steady gait, clear speech. Obvious tremors, tongue wag PSYCH: Normal affect Course Vital Signs Vital signs: Vital Signs Temperature 97.1 F L 07/22/24 07:52 Pulse Rate 129 H 07/22/24 07:52 Respiratory Rate 19 07/22/24 07:52 Blood Pressure 103/87 07/22/24 07:52 Pulse Oximetry 99 07/22/24 07:52 Temperature 97.1 F L 07/22/24 07:52 Pulse Rate 117 H 07/22/24 12:56 Respiratory Rate 20 07/22/24 12:56 Blood Pressure 190/119 H 07/22/24 12:56 Pulse Oximetry 95 07/22/24 12:56 MDM - Alcohol MDM Narrative Medical decision making narrative: patient presenting with alcohol withdrawal, last drink about a day ago, with nausea, tremors. Has had seizures in the past from withdrawal. CIWA initially 18, given a dose of phenobarbital with much improvement in his symptoms/ near resolution. Discussed with hospitalist for admission. Patient currently boarding in the ER, he started having withdrawal symptoms again so additional dose of phenobarbital administered. Lab Data 07/22/24 09:24 07/22/24 09:24 Labs: Lab Results 07/22/24 07/22/24 Range/Units 09:24 10:52 WBC 9.3 (4.5-10.0) K/mm3 RBC 4.51 L (4.6-6.20) M/mm3 Hgb 15.1 (14.0-18.0) g/dL Hct 45.8 (42.0-52.0) % MCV 101.6 H (80-100) fl MCH 33.5 (26-34) pg MCHC 33.0 (32-36) g/dl RDW 15.4 H (11.5-14.5) % Plt Count 234 (150-375) k/mm3 MPV 10.1 (7.4-10.4) fl Immature Gran % (Auto) 0.3 (0-0.5) % Neut % (Auto) 80.3 H (45.5-73.1) % Lymph % (Auto) 11.8 L (18.3-44.2) % [place] % (Auto) 6.5 (2.6-8.5) % Eos % (Auto) 0.1 (0-4.4) % Baso % (Auto) 1.0 (0.2-1.2) % Lymph # (Auto) 1.10 (0.9-3.2) K/mm3 [place] # (Auto) 0.6 (0.1-0.6) K/mm3 Eos # (Auto) 0.0 (0-0.3) K/mm3 Baso # (Auto) 0.1 (0.0-0.1) K/mm3 Abs Immat Gran (auto) 0.03 (0.00-0.031) K/mm3 Absolute Neuts (auto) 7.5 H (1.3-6.7) K/mm3 Absolute Nucleated RBC 0.000 (0.0-0.012) K/mm3 Nucleated RBC % 0.0 (0.0-0.2) % Sodium 143 (137-145) mmol/L Potassium 3.4 (3.4-5.0) mmol/L Chloride 99 (98-107) mmol/L Carbon Dioxide 29 (22-30) mmol/L Anion Gap 15 H (4-12) mmol/L BUN 10 D (9-20) mg/dL Creatinine 0.60 L (0.7-1.3) mg/dL Estim Creat Clear Calc 124 ml/min Estimated GFR > 60 (59 - ) Glucose 103 (65-110) mg/dL POC Capillary Glucose 89 (65-105) mg/dl Calcium 8.7 (8.4-10.2) mg/dL Magnesium 1.4 L (1.6-2.3) mg/dL Total Bilirubin 0.7 (0.2-1.3) mg/dL AST 112 H (17-59) U/L ALT 132 H (6-50) U/L Alkaline Phosphatase 79 (38-126) U/L Total Protein 7.0 (6.3-8.2) g/dL Albumin 4.6 (3.5-5.1) g/dL Ethyl Alcohol 200 (<10) mg/dL Critical Care Time Critical Care Time Critical Care Time: Yes Total Critical Care Time: 31 Discharge Plan Discharge Clinical Impression: Alcohol withdrawal Qualifiers: Complication of substance-induced condition: uncomplicated Qualified Code(s): F 10.230 - Alcohol dependence with withdrawal, uncomplicated Patient Disposition: Still a Patient Condition: Serious
[2024-07-22 09:30] LABS: Basophils Absolute Auto 0.1 K/mm3 (0.0-0.1); Eosinophils Percent Auto 0.1 % (0-4.4); Hematocrit 45.8 % (42.0-52.0); Hemoglobin 15.1 g/dL (14.0-18.0); Immature Granulocyte Absolute 0.03 K/mm3 (0.00-0.031); Immature Granulocyte Percent A 0.3 % (0-0.5); Lymphocytes Percent Auto 11.8 % (18.3-44.2); Mean Corpuscular Hemoglobin 33.5 pg (26-34); Mean Corpuscular Volume 101.6 fl (80-100); Mean Platelet Volume 10.1 fl (7.4-10.4); Monocytes Absolute Auto 0.6 K/mm3 (0.1-0.6); Monocytes Percent Auto 6.5 % (2.6-8.5); Neutrophils Absolute Auto 7.5 K/mm3 (1.3-6.7); Neutrophils Percent Auto 80.3 % (45.5-73.1); Platelet Count Result 234 k/mm3 (150-375); Red Blood Count 4.51 M/mm3 (4.6-6.20); Red Cell Distribution Width 15.4 % (11.5-14.5); White Blood Count 9.3 K/mm3 (4.5-10.0)
[2024-07-22] MEDS: PHENobarbitaL sodium (*CRX) 130 MG/ML VIAL 260 MG IV PUSH (09:52)
[2024-07-22 09:56] LABS: Ethanol 200 mg/dL (<10)
--- NOTE | 2024-07-22 10:24 | ECG_ITS ---
Test Date: 2024-07-22 03:23:35 Measurements Intervals [place] Rate: 129 P: 45 CA: 140 QRS: -19 QRSD: 87 T: 33 QT: 297 QTc: 436 Interpretive Statements SINUS TACHYCARDIA No previous ECG available for comparison Electronically Signed On 07-22-2024 14:55:05 CLUB ATTENDANT by Johnny Meadows M.D.
[2024-07-22 10:36] LABS: Alanine Aminotransferase 132 U/L (6-50); Albumin Level 4.6 g/dL (3.5-5.1); Alkaline Phosphatase 79 U/L (38-126); Anion Gap 15 mmol/L (4-12); Aspartate Amino Transferase 112 U/L (17-59); Bilirubin,Total 0.7 mg/dL (0.2-1.3); Blood Urea Nitrogen 10 mg/dL (9-20); Calcium 8.7 mg/dL (8.4-10.2); Carbon Dioxide 29 mmol/L (22-30); Chloride 99 mmol/L (98-107); Estimated CRCL calculation 124 ml/min; Estimated Glomerular Filt Rate > 60; Glucose 103 mg/dL (65-110); Magnesium 1.4 mg/dL (1.6-2.3); Potassium 3.4 mmol/L (3.4-5.0); Sodium 143 mmol/L (137-145)
--- NOTE | 2024-07-22 10:39 | ECG_ITS ---
Test Date: 2024-07-22 10:39:35 Measurements Intervals [place] Rate: 104 P: 43 DC: 132 QRS: 40 QRSD: 83 T: 48 QT: 342 QTc: 450 Interpretive Statements SINUS TACHYCARDIA SUSPECT LEFT ATRIAL ENLARGEMENT ABNORMAL RHYTHM ECG Compared to ECG 07/22/2024 03:23:35 No significant changes Electronically Signed On 07-23-2024 18:46:25 BLOCK HAND by Ronna Sousa
--- NOTE | 2024-07-22 10:49 | PC.NURSE ---
seizure pads placed on patient's bed
[2024-07-22 10:54] LABS: Glucose Point of Care 89 mg/dl (65-105)
[2024-07-22] MEDS: PHENobarbitaL sodium (*CRX) 130 MG/ML VIAL 450 MG IV PUSH ×2 (12:55→15:59)
--- NOTE | 2024-07-22 13:00 | PM.IMHP ---
H&P: HPI History of Present Illness Date/Time: 07/22/24 13:00 Chief Complaint: Alcohol withdrawal. Narrative: This is a 54-year-old male with longstanding history of alcohol abuse, alcohol withdrawal seizures, hypertension, gastroesophageal reflux disease, depression, anxiety, and posttraumatic stress disorder presented to the emergency department via private vehicle for evaluation of alcohol withdrawal symptoms. He drinks 1/5 of vodka of a day and his withdrawal symptoms start within about 6 to 8 hours after his last drink. Reportedly his last drink was 24 hours ago as he intended to go into alcohol rehab at [facility]. Unfortunately he was unable to make it there today due to the onset of withdrawal symptoms including anxiety, tremors, nausea, vomiting, and slight headache. He denies fever, hallucinations, chest pain, shortness of breath, hematemesis, and diarrhea. In the ED: He has been tachycardic and hypertensive. Labs were significant for an MCV of 101.6, anion gap 15, BUN 10, creatinine 0.60, magnesium 1.4, AST 112, ALT 132, ethyl alcohol level 200. EKG showed sinus tachycardia. He was given chlordiazepoxide 25 mg on presentation to the ED. Within a couple of hours his symptoms escalated and he was given phenobarbital 260 mg IV with 2 repeat doses of 450 mg with close monitoring due to significantly elevated CIWA scores. His symptoms are much better controlled and he is being admitted to the IMU for further treatment and continued close monitoring. Review of Systems Review of Systems 12 systems were reviewed and are negative except for as per HPI. [facility] Past Medical History Medical History Nicotine use Posttraumatic stress disorder Essential hypertension Depression Anxiety Alcohol withdrawal seizure Seasonal allergies Surgical History Surgical History History of surgical removal of ganglion cyst Right wrist. History of tonsillectomy and adenoidectomy History of umbilical hernia repair History of appendectomy History of tonsillectomy Family History Family History Father Heart disease Mother Heart disease Social History Social History (Updated 07/22/24 @ 19:55 by Mar Howell PA-C) Social History: Surrogate medical decision maker: Bonnie Sandhu, mother. Code status: Full code. Smoking packs per day: 0.5 Smoking cigarettes per day: 10.0 Years smoked: 25 Smoking pack-years: 12.50 Smoking status: Former smoker Tobacco type: cigarettes Smokeless tobacco user: chewing tobacco Second hand tobacco smoke exposure: Yes Alcohol intake: current Alcohol use details: 1/5 of vodka a day Substance use: never Substance use type: does not use Do You Feel Safe in your Home?: Yes Lack of Transportation: No Lack of Food: Never True Current Housing: I Have Housing Concerned About Future Housing: No Difficulty Paying Gas/Electric Bills: No Difficulty Paying for Meds: No Currently Unemployed: No Education: High School Diploma/GED Difficulty w/ Childcare or Family Care: No Additional living arrangements comments: Lives in [place]. 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 Spiritual care concerns: No Meds Home Medications and Allergies Home Medications ?Medication ?Instructions ?Recorded ?Confirmed ?Type quetiapine 400 mg tablet 400 mg PO HS 06/12/19 07/22/24 History omeprazole 20 mg capsule,delayed 20 mg PO DAILY 06/07/20 07/22/24 History release thiamine HCl (vitamin B1) 100 mg 100 mg PO QAM #90 tabs 06/09/20 07/22/24 Rx tablet (Vitamin B-1) metoprolol tartrate 25 mg tablet 50 mg (2 x 25 mg) PO Q12HR #60 tabs 06/17/20 07/22/24 Rx lisinopril 20 mg tablet 20 mg PO DAILY 10/03/20 07/22/24 History magnesium oxide 400 mg (241.3 mg 400 mg PO QAM #30 tabs 10/06/20 07/22/24 Rx magnesium) tablet trazodone 100 mg tablet 100 mg PO HS 07/22/24 07/22/24 History Allergies Allergy/AdvReac Type Severity Reaction Status Date / Time Penicillins Allergy Unknown hive Verified 07/22/24 14:24 Vital Signs Vital Signs - 24 hr 07/22/24 07:52 07/22/24 09:55 07/22/24 12:56 Temperature 97.1 F L Pulse Rate 129 H 116 H 117 H Respiratory Rate 19 20 20 Blood Pressure 103/87 149/73 H 190/119 H Pulse Oximetry 99 95 95 Exam Narrative General: Well-developed male in mild distress related to withdrawal symptoms sitting up in bed. Weight: 90.9 kg. BMI: 28.8. HEENT: Normocephalic, atraumatic. PERRL, EOMI. Sclera anicteric. Conjunctiva are injected. Tacky mucous membranes. Neck: Supple. Respiratory: Lungs are clear to auscultation bilaterally. Cardiovascular: Tachycardic with S1-S2. Gastrointestinal: Abdomen is soft, nontender, and nondistended with positive bowel sounds. Skin: Warm and dry. No rash or lesions on limited exam. Extremities: No cyanosis, clubbing, or edema. Radial and pedal pulses intact. Neurological: Alert and oriented. Cranial nerves 2-12 are grossly intact. Mild nystagmus. No tongue fasciculations. Tremors of the hands when arms are extended. No gross focal deficits to casual conversation. Psychiatric: Pleasant and cooperative with appropriate mood. Anxious. H&P: Results Labs Labs: Short CBC 07/22/24 Range/Units 09:24 WBC 9.3 (4.5-10.0) K/mm3 Hgb 15.1 (14.0-18.0) g/dL Hct 45.8 (42.0-52.0) % Plt Count 234 (150-375) k/mm3 BMP 07/22/24 09:24 Sodium 143 Potassium 3.4 Chloride 99 Carbon Dioxide 29 BUN 10 D Creatinine 0.60 L Glucose 103 Calcium 8.7 Liver Function 07/22/24 Range/Units 09:24 Total Bilirubin 0.7 (0.2-1.3) mg/dL AST 112 H (17-59) U/L ALT 132 H (6-50) U/L Alkaline Phosphatase 79 (38-126) U/L Albumin 4.6 (3.5-5.1) g/dL Assessment and Plan Assessment and plan (1) Alcohol withdrawal: Qualifiers: Complication of substance-induced condition: uncomplicated Qualified Code(s): F10.230 - Alcohol dependence with withdrawal, uncomplicated Code(s): F10.239 - Alcohol dependence with withdrawal, unspecified Status: Acute (2) Elevated LFTs: Code(s): R79.89 - Other specified abnormal findings of blood chemistry Status: Acute (3) Hypomagnesemia: Code(s): E83.42 - Hypomagnesemia Status: Acute (4) Hypertension: Code(s): I10 - Essential (primary) hypertension Status: Acute Plan The patient presented to the emergency department for evaluation of alcohol withdrawal symptoms 24 hours after his last drink as detailed in HPI. Labs, imaging, EKG, and all reports were personally reviewed. He got a total of 3 doses of phenobarbital equivalent to 10 mg/kg and has since been started on scheduled chlordiazepoxide and p.r.n. lorazepam per [facility] protocol. Magnesium was replaced and will be monitored. AST and ALT are elevated, likely due to ongoing alcohol use and will be monitored. Abdominal exam is benign. Blood pressures have been running high, in part due to withdrawal. Resume antihypertensives and continue to monitor blood pressures closely. He does not know his medications and a call has been [facility] to the [facility] so they may be reconciled. Findings and treatment plan were discussed with the patient. Questions were solicited and answered to satisfaction. The patient's medical management will be taken over by the hospitalist team in a.m. Quality VTE Prophylaxis VTE prophylaxis: mechanical ordered If No VTE Prophylaxis Answer both mechanical and pharmacologic: Reason no pharmacologic proph: medical contraindication (fall and seizure risk) Hospitalist MIPS Advance Care Plan I have confirmed that the patient's Advanced Care Plan is present, code status is documented, or surrogate decision maker is listed in patient medical record.: Yes Medication Reconciliation I have utilized all available resources to obtain, update and review the patients current medications (includes all prescriptions, OTC, herbals, cannabis, and nutritional supplements).: Yes Critical Care Time Critical Care Time: Yes Total Critical Care Time: 60 Attestation: Due to a high probability of clinically significant, life threatening deterioration, the patient required my highest level of preparedness to intervene emergently and I personally spent this critical care time directly and personally managing the patient. This critical care time included obtaining a history; examining the patient; pulse oximetry; ordering and review of studies; arranging urgent treatment with development of a management plan; evaluation of patient's response to treatment; frequent reassessment; and discussions with other providers. It was exclusive of separately billable procedures and treating other patients and teaching time. Please see Assessment and Plan section and the rest of the note for further information on patient assessment and treatment.
--- NOTE | 2024-07-22 13:45 | PC.NURSE ---
Nirmala, hospitalist at bedside assessing pt.
--- NOTE | 2024-07-22 15:01 | PC.NURSE ---
Hospitalist Nirmala and ER MD Harrison notified of pt CIWA of 17. See MAR for interventions.
[2024-07-22] MEDS: ONDANSETRON INJ 4 MG/2 ML VIAL IV PUSH (15:17)
[2024-07-22] MEDS: THIAMINE HCL 200 MG/2 ML VIAL 100 MG IV PUSH (15:17)
[2024-07-22] MEDS: DEXTROSE 5%/0.9% SOD CHL 1,000 ML 100 ML IV CONT (15:19)
--- NOTE | 2024-07-22 16:05 | PC.NURSE ---
Delay in started magnesium d/t pt. only having 1 peripheral IV at this time. Pt. requires ultrasound IV. Current infusion not compatible with magnesium sulfate. Ultrasound certified RN to bedside for additional IV access.
--- NOTE | 2024-07-22 16:54 | PC.NURSE ---
Report called to QIANA Conte. All questions answered.
[2024-07-22] MEDS: MAGNESIUM SULFATE 3GM/D5W100ML 3 GM/100 ML BAG IVPB (17:20)
--- NOTE | 2024-07-22 17:40 | PC.NURSE ---
Patient arrived to the floor via stretcher from the ER at 1700pm. Alert and oriented at this time. Vital signs stable. Discussed plan of care including medications with patient. CIWA score obtained (17). hall monitor placed on and functioning at this time. No seizure activity noted at this time. Provider notified that patient on the floor and orders for medications requested.
[2024-07-22] MEDS: LORazepam INJ (*CRX) 2 MG/ML VIAL 4 MG IV PUSH (18:38)
[2024-07-23] VITALS (18 sets, daily range): BP systolic 134–180; BP diastolic 58–99; PULSE 68–95; RESP 16–20; TEMP 36.5–37.1; O2SAT 94–98
[2024-07-23] MEDS: METOPROLOL TARTRATE 50 MG TAB PO ×3 (00:15→20:54)
[2024-07-23] MEDS: chlordiazePOXIDE (*CRX) 25 MG CAPSULE PO ×4 (00:15→17:47)
[2024-07-23 00:57] LABS: Glucose Point of Care 124 mg/dl (65-105)
[2024-07-23] MEDS: LORazepam INJ (*CRX) 2 MG/ML VIAL IV PUSH ×4 (04:52→20:55)
[2024-07-23 05:28] LABS: Hemoglobin 13.4 g/dL (14.0-18.0); Mean Corpuscular HGB Conc 33.5 g/dl (32-36); Mean Corpuscular Hemoglobin 33.3 pg (26-34); Mean Corpuscular Volume 99.3 fl (80-100); Mean Platelet Volume 10.5 fl (7.4-10.4); Platelet Count Result 176 k/mm3 (150-375); Red Blood Count 4.03 M/mm3 (4.6-6.20); Red Cell Distribution Width 14.4 % (11.5-14.5); White Blood Count 7.9 K/mm3 (4.5-10.0)
[2024-07-23 05:38] LABS: Prothrombin Time 13.5 Seconds (11.1-14.7)
[2024-07-23 05:39] LABS: Partial Thromboplastin Time 26.3 Seconds (22.3-36.8)
[2024-07-23 05:48] LABS: Alanine Aminotransferase 91 U/L (6-50); Albumin Level 3.9 g/dL (3.5-5.1); Alkaline Phosphatase 69 U/L (38-126); Anion Gap 2 mmol/L (4-12); Aspartate Amino Transferase 64 U/L (17-59); Bilirubin,Total 1.5 mg/dL (0.2-1.3); Blood Urea Nitrogen 6 mg/dL (9-20); Calcium 8.2 mg/dL (8.4-10.2); Carbon Dioxide 34 mmol/L (22-30); Chloride 95 mmol/L (98-107); Estimated CRCL calculation 145 ml/min; Estimated Glomerular Filt Rate > 60; Glucose 96 mg/dL (65-110); Magnesium 1.8 mg/dL (1.6-2.3); Sodium 131 mmol/L (137-145)
[2024-07-23] MEDS: FOLIC ACID 1 MG TABLET PO (09:26)
[2024-07-23] MEDS: THIAMINE HCL 100 MG TABLET PO (09:26)
[2024-07-23] MEDS: lisinopriL 20 MG TABLET PO (09:27)
[2024-07-23] MEDS: MAGNESIUM OXIDE 400 MG TABLET PO (09:27)
[2024-07-23] MEDS: THERAPEUTIC MULTIVITAMINS/MINERALS TAB (*BKC) 1 TABLET PO (09:27)
[2024-07-23] MEDS: PANTOPRAZOLE 40 MG TABLET PO (09:27)
--- NOTE | 2024-07-23 09:57 | PM.IMPN ---
Progress Note: A&P Assessment and Plan (1) Alcohol withdrawal: Qualifiers: Complication of substance-induced condition: uncomplicated Qualified Code(s): F10.230 - Alcohol dependence with withdrawal, uncomplicated Code(s): F10.239 - Alcohol dependence with withdrawal, unspecified Status: Acute (2) Elevated LFTs: Code(s): R79.89 - Other specified abnormal findings of blood chemistry Status: Acute (3) Hypomagnesemia: Code(s): E83.42 - Hypomagnesemia Status: Acute (4) Hypertension: Code(s): I10 - Essential (primary) hypertension Status: Acute Plan Alcohol withdrawal and alcohol intoxication The patient presented to the emergency department for evaluation of alcohol withdrawal symptoms 24 hours after his last drink Labs, imaging, EKG, and all reports were reviewed. got a total of 3 doses of phenobarbital equivalent to 10 mg/kg and has since been started on scheduled chlordiazepoxide and p.r.n. lorazepam per [facility] protocol. Currently patient is somnolent, but still has anxiety, and tremors a better controlled, patient denies hallucination Electrolyte disorders: hyponatremia 131, hypokalemia 3.0, hypo magnesemia Magnesium was replaced, corrected Start normal saline and replete with potassium chloride 40 mg p.o. once and b.i.d. p.o. Follow-up BMP Alcoholic hepatitis Elevated total bilirubin 1.5, AST 112, ALT 132 due to ongoing alcohol use and will be monitored. Abdominal exam is benign. Uncontrolled hypertension Blood pressures have been running high, in part due to withdrawal. Resume antihypertensives and continue to monitor blood pressures closely. Subjective Date/time seen: 07/23/24 09:57 Interval history: I saw exam patient today, patient still has headache, palpitation, anxiety. Patient denies visual hallucination, abdomen pain, nausea vomiting diarrhea. Patient afebrile, blood pressure stable, pulse ox 98 room air, Exam Narrative: GENERAL: Somnolent in no acute distress. Well-nourished. - EYES: EOMI. Anicteric. - HENT: Moist mucous membranes. - LUNGS: Clear to auscultation bilaterally, no wheezing, rhonchi, or rales. - CARDIOVASCULAR: Regular rate and rhythm. No murmur. No JVD. - ABDOMEN: Soft, non-tender and non-distended. No palpable masses. - EXTREMITIES: No edema. Peripheral pulses 2+. Non-tender. Bilateral hand tremors - NEUROLOGIC: No focal neurological deficits. CN II-XII grossly intact. - PSYCHIATRIC: Awake, Alert and oriented x 3. mood and affect: sleepy - SKIN: No rashes or lesions. Warm. - LYMPH: No cervical lymphadenopathy. Objective Data Vital Signs Vital Signs: Vital Signs - 24 hr 07/22/24 12:56 07/22/24 13:46 07/22/24 14:00 Temperature Pulse Rate 117 H 119 H Respiratory Rate 20 16 Blood Pressure 190/119 H Pulse Oximetry 95 98 96 Oxygen Delivery Nasal Cannula Oxygen Flow Rate 2 07/22/24 16:00 07/22/24 20:00 07/22/24 20:00 Temperature Pulse Rate 110 H 102 H Respiratory Rate 20 Blood Pressure 182/101 H 187/86 H Pulse Oximetry 95 Oxygen Delivery Oxygen Flow Rate 07/22/24 20:00 07/22/24 20:40 07/22/24 23:36 Temperature 98.6 F Pulse Rate 102 H 105 H 102 H Respiratory Rate 20 20 Blood Pressure 187/86 H Pulse Oximetry 97 97 Oxygen Delivery Nasal Cannula Oxygen Flow Rate 2 07/22/24 23:36 07/23/24 00:00 07/23/24 00:00 Temperature Pulse Rate 91 Respiratory Rate 20 Blood Pressure 156/91 H Pulse Oximetry 98 96 Oxygen Delivery Nasal Cannula Nasal Cannula Oxygen Flow Rate 2 2 07/23/24 00:00 07/23/24 00:15 07/23/24 00:20 Temperature 97.8 F Pulse Rate 91 95 95 Respiratory Rate 20 Blood Pressure 156/91 H Pulse Oximetry 96 Oxygen Delivery Oxygen Flow Rate 07/23/24 02:00 07/23/24 04:00 07/23/24 04:00 Temperature Pulse Rate 92 76 Respiratory Rate 20 Blood Pressure 156/91 H Pulse Oximetry 96 Oxygen Delivery Nasal Cannula Oxygen Flow Rate 2 07/23/24 04:00 07/23/24 05:26 07/23/24 06:00 Temperature 97.7 F Pulse Rate 76 82 78 Respiratory Rate 20 Blood Pressure 151/78 H Pulse Oximetry 96 Oxygen Delivery Oxygen Flow Rate 07/23/24 08:00 07/23/24 09:27 Temperature 98.4 F Pulse Rate 83 84 Respiratory Rate 18 Blood Pressure 165/99 H Pulse Oximetry 94 Oxygen Delivery Oxygen Flow Rate Intake/Output Intake/Output: Intake & Output 07/20/24 07/21/24 07/22/24 07/23/24 23:59 23:59 23:59 23:59 Intake Total 240 350 Output Total 400 850 Balance -160 -500 Meds/Results Medications: Active Medications Generic Name Dose Route Start Last Admin Trade Name Freq PRN Reason Stop Dose Admin Acetaminophen 650 mg 07/22/24 18:09 Acetaminophen 325 Mg Tablet PO Q6H PRN Mild Pain (1-3) or Fever Chlordiazepoxide HCl 25 mg 07/22/24 18:10 07/23/24 04:52 Chlordiazepoxide (*Crx) 25 Mg Capsule PO 25 mg Q6HR DAWOOD Administration Folic Acid 1 mg 07/23/24 09:00 07/23/24 09:26 Folic Acid 1 Mg Tablet PO 1 mg DAILY DAWOOD Administration Lisinopril 20 mg 07/23/24 09:00 07/23/24 09:27 Lisinopril 20 Mg Tablet PO 20 mg DAILY DAWOOD Administration Lorazepam 2 mg 07/22/24 18:08 07/23/24 09:26 Lorazepam Inj (*Crx) 2 Mg/Ml Vial IV PUSH 2 mg Q2H PRN Administration CIWA 8-15 Lorazepam 4 mg 07/22/24 18:08 07/22/24 18:38 Lorazepam Inj (*Crx) 2 Mg/Ml Vial IV PUSH 4 mg Q2H PRN Administration CIWA > 15 Magnesium Oxide 400 mg 07/23/24 09:00 07/23/24 09:27 Magnesium Oxide 400 Mg Tablet PO 400 mg QAM DAWOOD Administration Metoprolol Tartrate 50 mg 07/22/24 23:20 07/23/24 09:27 Metoprolol Tartrate 50 Mg Tab PO 50 mg Q12HR DAWOOD Administration Multivitamins/Calcium 1 tablet 07/23/24 09:00 07/23/24 09:27 Therapeutic Multivitamins/Minerals Tab (*Bkc) PO 1 tablet QAM DAWOOD Administration Pantoprazole Sodium 40 mg 07/23/24 09:00 07/23/24 09:27 Pantoprazole 40 Mg Tablet PO 40 mg QAM DAWOOD Administration Thiamine HCl 100 mg 07/23/24 09:00 07/23/24 09:26 Thiamine Hcl 100 Mg Tablet PO 100 mg QAM DAWOOD Administration Labs Labs: Laboratory Results - last 24 hr 07/22/24 07/22/24 07/22/24 09:24 10:52 23:26 WBC RBC Hgb Hct MCV MCH MCHC RDW Plt Count MPV PT INR APTT Sodium 143 Potassium 3.4 Chloride 99 Carbon Dioxide 29 Anion Gap 15 H BUN 10 D Creatinine 0.60 L Estim Creat Clear Calc 124 Estimated GFR > 60 Glucose 103 POC Capillary Glucose 89 124 H Calcium 8.7 Magnesium 1.4 L Total Bilirubin 0.7 AST 112 H ALT 132 H Alkaline Phosphatase 79 Total Protein 7.0 Albumin 4.6 07/23/24 05:13 WBC 7.9 RBC 4.03 L Hgb 13.4 L Hct 40.0 L MCV 99.3 MCH 33.3 MCHC 33.5 RDW 14.4 Plt Count 176 MPV 10.5 H PT 13.5 INR 1.0 APTT 26.3 Sodium 131 L Potassium 3.0 L Chloride 95 L Carbon Dioxide 34 H Anion Gap 2 L BUN 6 L Creatinine 0.50 L Estim Creat Clear Calc 145 Estimated GFR > 60 Glucose 96 POC Capillary Glucose Calcium 8.2 L Magnesium 1.8 Total Bilirubin 1.5 H AST 64 H ALT 91 H Alkaline Phosphatase 69 Total Protein 6.0 L Albumin 3.9
--- NOTE | 2024-07-23 10:28 | PC.NURSE ---
This RN had to wake patient up from sleeping to assess. States that when he is awake he immediately feels anxious. Very pleasant and kind with communication at this time. Discussed plan of care including medications, medication times and CIWA scores. Verbalizes understanding at this time. Patient stated that he had to go to the bathroom for a bowel movement, this RN assisted. It was noted that he was incontinent a small amount when he got up. Gait unsteady. This RN discussed with the patient that the medication he is on puts him at great risk for falls, and that it is vital that he call for help before getting out of bed or off the toilet on his own. Verbalizes understanding. Tolerated transfer to the bathroom at this time. Was given some wet wipes to clean himself up and instructed to throw them in the trash when done. Trash can left within reach. Bed linens changed at this time. No acute distress noted at this time. surveillance system monitor remains on and functioning at this time. Verbalizes understanding related to plan of care. Denies questions at this time. Assisted back to bed and bed alarm placed on.
[2024-07-23] MEDS: SODIUM CHLORIDE 0.9% IV 1,000 ML 100 ML IV CONT (10:45)
[2024-07-23] MEDS: POTASSIUM CHLORIDE 20 MEQ PACKET (FOR LIQUID) 40 MEQ PO ×2 (10:48→16:21)
[2024-07-23] MEDS: LOPERAMIDE HCL 2 MG CAPSULE 4 MG PO (19:36)
[2024-07-24] VITALS (18 sets, daily range): BP systolic 129–181; BP diastolic 69–103; PULSE 56–96; RESP 16–20; TEMP 36.5–36.8; O2SAT 95–99
[2024-07-24] MEDS: chlordiazePOXIDE (*CRX) 25 MG CAPSULE PO (00:42)
[2024-07-24] MEDS: LORazepam INJ (*CRX) 2 MG/ML VIAL IV PUSH ×2 (00:42→21:29)
[2024-07-24] MEDS: chlordiazePOXIDE (*CRX) 25 MG CAPSULE 100 MG PO (02:39)
[2024-07-24] MEDS: LORazepam INJ (*CRX) 2 MG/ML VIAL IM ×3 (02:40→15:23)
--- NOTE | 2024-07-24 04:21 | PC.NURSE ---
Pt. has no iv site at this time due to both iv's had to be discontinued due to occlusion and infiltration. Several atemps were made by different rns to find a iv site but were unable to. DR. Younger notified that the pt. currently has no iv site.
[2024-07-24 06:08] LABS: Glucose Point of Care 87 mg/dl (65-105)
--- NOTE | 2024-07-24 08:39 | P.PNIM_ITS ---
Progress Note: A&P Assessment and Plan (1) Alcohol withdrawal: Qualifiers: Complication of substance-induced condition: uncomplicated Qualified Code(s): F10.230 - Alcohol dependence with withdrawal, uncomplicated Code(s): F10.239 - Alcohol dependence with withdrawal, unspecified Status: Acute (2) Elevated LFTs: Code(s): R79.89 - Other specified abnormal findings of blood chemistry Status: Acute (3) Hypomagnesemia: Code(s): E83.42 - Hypomagnesemia Status: Acute (4) Hypertension: Code(s): I10 - Essential (primary) hypertension Status: Acute Plan Alcohol withdrawal and alcohol intoxication The patient presented to the emergency department for evaluation of alcohol withdrawal symptoms 24 hours after his last drink Labs, imaging, EKG, and all reports were reviewed. got a total of 3 doses of phenobarbital equivalent to 10 mg/kg and has since been started on scheduled chlordiazepoxide and p.r.n. lorazepam per [facility] protocol. Patient need frequent Ativan IM. Patient is somnolent, patient has anxiety, and tremors. patient denies hallucination Electrolyte disorders: hyponatremia 131, hypokalemia 3.0, hypo magnesemia Magnesium was replaced, corrected Start normal saline and replete with potassium chloride 40 mg p.o. once and b.i.d. p.o. Follow-up BMP Alcoholic hepatitis Elevated total bilirubin 1.5, AST 112, ALT 132 due to ongoing alcohol use and will be monitored. Abdominal exam is benign. Uncontrolled hypertension Blood pressures have been running high, in part due to withdrawal. Blood pressure 181/103 c/w lisinopril 20 mg daily p.o., start amlodipine 10 mg daily p.o., continue to monitor blood pressures closely. Start hydralazine IV p.r.n. 10 mg with parameters Subjective Date/time seen: 07/24/24 08:39 Interval history: I saw exam patient today, patient still has headache, palpitation, anxiety need frequent Ativan IM. Patient denies visual hallucination, abdomen pain, nausea vomiting diarrhea. Patient afebrile, blood pressure stable, pulse ox 98 room air, Exam Narrative: GENERAL: Somnolent in no acute distress. Well-nourished. - EYES: EOMI. Anicteric. - HENT: Moist mucous membranes. - LUNGS: Clear to auscultation bilateral ly, no wheezing, rhonchi, or rales. - CARDIOVASCULAR: Regular rate and rhyth m. No murmur. No JVD. - ABDOMEN: Soft, non-tender and non-dist ended. No palpable masses. - EXTREMITIES: No edema. Peripheral puls es 2+. Non-tender. Bilateral hand tremors - NEUROLOGIC: No focal neurological defi cits. CN II-XII grossly intact. - PSYCHIATRIC: Awake, Alert and oriented x 3. mood and affect: sleepy - SKIN: No rashes or lesions. Warm. - LYMPH: No cervical lymphadenopathy. Objective Data Vital Signs Vital Signs: Vital Signs - 24 hr 07/23/24 09:27 07/23/24 10:00 07/23/24 12:00 Temperature 98.7 F Pulse Rate 84 82 77 Respiratory Rate 16 Blood Pressure 134/58 L Pulse Oximetry 98 Oxygen Delivery 07/23/24 12:00 07/23/24 12:00 07/23/24 14:00 Temperature Pulse Rate 77 68 81 Respiratory Rate 16 Blood Pressure Pulse Oximetry 98 Oxygen Delivery Room Air 07/23/24 16:00 07/23/24 16:00 07/23/24 16:00 Temperature 98.2 F Pulse Rate 87 88 Respiratory Rate 20 Blood Pressure 153/92 H Pulse Oximetry 96 Oxygen Delivery Room Air 07/23/24 18:00 07/23/24 20:00 07/23/24 20:00 Temperature Pulse Rate 89 84 Respiratory Rate 20 Blood Pressure 180/97 H Pulse Oximetry 98 Oxygen Delivery Room Air 07/23/24 20:00 07/23/24 20:43 07/23/24 20:54 Temperature 98.4 F Pulse Rate 84 83 88 Respiratory Rate 20 Blood Pressure 180/97 H Pulse Oximetry 98 Oxygen Delivery 07/23/24 22:00 07/24/24 00:00 07/24/24 00:00 Temperature Pulse Rate 82 73 Respiratory Rate 20 Blood Pressure 151/90 H Pulse Oximetry 98 Oxygen Delivery Room Air 07/24/24 00:00 07/24/24 00:20 07/24/24 02:00 Temperature 98.2 F Pulse Rate 73 77 82 Respiratory Rate 20 Blood Pressure 151/90 H Pulse Oximetry 98 Oxygen Delivery 07/24/24 04:00 07/24/24 04:00 07/24/24 04:00 Temperature Pulse Rate 78 78 Respiratory Rate 20 Blood Pressure 151/90 H Pulse Oximetry 98 Oxygen Delivery Room Air 07/24/24 04:36 07/24/24 06:00 07/24/24 08:00 Temperature 98.3 F 98 F Pulse Rate 78 70 90 Respiratory Rate 20 16 Blood Pressure 129/74 138/69 Pulse Oximetry 95 96 Oxygen Delivery Intake/Output Intake/Output: Intake & Output 07/21/24 07/22/24 07/23/24 07/24/24 23:59 23:59 23:59 23:59 Intake Total 240 1070 1400 Output Total 400 2200 400 Balance -160 -1130 1000 Meds/Results Medications: Active Medications Generic Name Dose Route Start Last Admin Trade Name Freq PRN Reason Stop Dose Admin Acetaminophen 650 mg 07/22/24 18:09 Acetaminophen 325 Mg Tablet PO Q6H PRN Mild Pain (1-3) or Fever Chlordiazepoxide HCl 50 mg 07/24/24 06:00 07/24/24 06:26 Chlordiazepoxide (*Crx) 25 Mg Capsule PO Not Given Q6HR DAWOOD Folic Acid 1 mg 07/23/24 09:00 07/23/24 09:26 Folic Acid 1 Mg Tablet PO 1 mg DAILY DAWOOD Administration Sodium Chloride 1,000 mls @ 100 mls/hr 07/23/24 10:05 07/24/24 00:00 Normal Saline Iv IV CONT Infused .Q10H DAWOOD Infusion Lisinopril 20 mg 07/23/24 09:00 07/23/24 09:27 Lisinopril 20 Mg Tablet PO 20 mg DAILY DAWOOD Administration Loperamide HCl 2 mg 07/24/24 08:10 Loperamide Hcl 2 Mg Capsule PO PRN PRN Diarrhea Lorazepam 2 mg 07/24/24 02:07 07/24/24 02:40 Lorazepam Inj (*Crx) 2 Mg/Ml Vial IM 2 mg Q2H PRN Administration Alcohol Withdrawal Lorazepam 4 mg 07/24/24 02:09 Lorazepam Inj (*Crx) 2 Mg/Ml Vial IM Q2H PRN Alcohol Withdrawal Magnesium Oxide 400 mg 07/23/24 09:00 07/23/24 09:27 Magnesium Oxide 400 Mg Tablet PO 400 mg QAM DAWOOD Administration Metoprolol Tartrate 50 mg 07/22/24 23:20 07/23/24 20:54 Metoprolol Tartrate 50 Mg Tab PO 50 mg Q12HR DAWOOD Administration Multivitamins/Calcium 1 tablet 07/23/24 09:00 07/23/24 09:27 Therapeutic Multivitamins/Minerals Tab (*Bkc) PO 1 tablet QAM DAWOOD Administration Pantoprazole Sodium 40 mg 07/23/24 09:00 07/23/24 09:27 Pantoprazole 40 Mg Tablet PO 40 mg QAM DAWOOD Administration Potassium Chloride 40 meq 07/23/24 17:00 07/23/24 16:21 Potassium Chloride 20 Meq Packet (For Liquid) PO 40 meq BID DAWOOD Administration Thiamine HCl 100 mg 07/23/24 09:00 07/23/24 09:26 Thiamine Hcl 100 Mg Tablet PO 100 mg QAM DAWOOD Administration Labs Labs: Laboratory Results - last 24 hr 07/24/24 00:14 POC Capillary Glucose 87
[2024-07-24 09:15] LABS: Basophils Absolute Auto 0.1 K/mm3 (0.0-0.1); Basophils Percent Auto 1.3 % (0.2-1.2); Eosinophils Absolute Auto 0.2 K/mm3 (0-0.3); Eosinophils Percent Auto 3.6 % (0-4.4); Hematocrit 42.4 % (42.0-52.0); Hemoglobin 13.7 g/dL (14.0-18.0); Immature Granulocyte Absolute 0.03 K/mm3 (0.00-0.031); Immature Granulocyte Percent A 0.5 % (0-0.5); Immature Platelet Fraction Pct 8.2 % (0.9-11.2); Lymphocytes Absolute Auto 1.15 K/mm3 (0.9-3.2); Lymphocytes Percent Auto 20.5 % (18.3-44.2); Mean Corpuscular HGB Conc 32.3 g/dl (32-36); Mean Corpuscular Hemoglobin 33.7 pg (26-34); Mean Corpuscular Volume 104.4 fl (80-100); Mean Platelet Volume 11.6 fl (7.4-10.4); Monocytes Absolute Auto 0.5 K/mm3 (0.1-0.6); Monocytes Percent Auto 8.6 % (2.6-8.5); Neutrophils Absolute Auto 3.7 K/mm3 (1.3-6.7); Neutrophils Percent Auto 65.5 % (45.5-73.1); Platelet Count Result 115 k/mm3 (150-375); Red Blood Count 4.06 M/mm3 (4.6-6.20); Red Cell Distribution Width 14.3 % (11.5-14.5); White Blood Count 5.6 K/mm3 (4.5-10.0)
[2024-07-24] MEDS: THIAMINE HCL 100 MG TABLET PO (09:41)
[2024-07-24] MEDS: METOPROLOL TARTRATE 50 MG TAB PO ×2 (09:41→21:28)
[2024-07-24] MEDS: LOPERAMIDE HCL 2 MG CAPSULE PO (09:41)
[2024-07-24] MEDS: THERAPEUTIC MULTIVITAMINS/MINERALS TAB (*BKC) 1 TABLET PO (09:41)
[2024-07-24] MEDS: lisinopriL 20 MG TABLET PO (09:41)
[2024-07-24] MEDS: MAGNESIUM OXIDE 400 MG TABLET PO (09:41)
[2024-07-24] MEDS: PANTOPRAZOLE 40 MG TABLET PO (09:42)
[2024-07-24] MEDS: FOLIC ACID 1 MG TABLET PO (09:42)
[2024-07-24 09:49] LABS: Alanine Aminotransferase 86 U/L (6-50); Albumin Level 3.8 g/dL (3.5-5.1); Alkaline Phosphatase 66 U/L (38-126); Anion Gap 5 mmol/L (4-12); Aspartate Amino Transferase 83 U/L (17-59); Blood Urea Nitrogen 4 mg/dL (9-20); Carbon Dioxide 29 mmol/L (22-30); Chloride 100 mmol/L (98-107); Estimated CRCL calculation 145 ml/min; Estimated Glomerular Filt Rate > 60; Glucose 116 mg/dL (65-110); Potassium 3.4 mmol/L (3.4-5.0); Sodium 134 mmol/L (137-145)
[2024-07-24] MEDS: POTASSIUM CHLORIDE 20 MEQ PACKET (FOR LIQUID) 40 MEQ PO ×2 (10:30→17:46)
[2024-07-24] MEDS: chlordiazePOXIDE (*CRX) 25 MG CAPSULE 50 MG PO ×3 (12:04→23:24)
[2024-07-24] MEDS: amLODIPine BESYLATE 10 MG TABLET PO (17:47)
[2024-07-24] MEDS: QUEtiapine FUMARATE 100 MG TABLET 400 MG PO (22:40)
[2024-07-25] VITALS (12 sets, daily range): BP systolic 125–155; BP diastolic 61–91; PULSE 5–89; RESP 14–18; TEMP 35.8–36.8; O2SAT 95–100
[2024-07-25 00:12] LABS: Glucose Point of Care 100 mg/dl (65-105)
[2024-07-25] MEDS: chlordiazePOXIDE (*CRX) 25 MG CAPSULE 50 MG PO ×3 (06:25→17:38)
[2024-07-25] MEDS: THERAPEUTIC MULTIVITAMINS/MINERALS TAB (*BKC) 1 TABLET PO (08:38)
[2024-07-25] MEDS: THIAMINE HCL 100 MG TABLET PO (08:38)
[2024-07-25] MEDS: METOPROLOL TARTRATE 50 MG TAB PO ×2 (08:38→20:16)
[2024-07-25] MEDS: MAGNESIUM OXIDE 400 MG TABLET PO (08:38)
[2024-07-25] MEDS: lisinopriL 20 MG TABLET PO (08:38)
[2024-07-25] MEDS: PANTOPRAZOLE 40 MG TABLET PO (08:38)
[2024-07-25] MEDS: FOLIC ACID 1 MG TABLET PO (08:39)
[2024-07-25] MEDS: POTASSIUM CHLORIDE 20 MEQ PACKET (FOR LIQUID) 40 MEQ PO ×2 (08:39→17:39)
[2024-07-25] MEDS: amLODIPine BESYLATE 10 MG TABLET PO (08:39)
[2024-07-25 09:34] LABS: Basophils Absolute Auto 0.1 K/mm3 (0.0-0.1); Basophils Percent Auto 0.9 % (0.2-1.2); Eosinophils Absolute Auto 0.2 K/mm3 (0-0.3); Eosinophils Percent Auto 3.8 % (0-4.4); Hematocrit 42.6 % (42.0-52.0); Hemoglobin 14.3 g/dL (14.0-18.0); Immature Granulocyte Absolute 0.04 K/mm3 (0.00-0.031); Immature Granulocyte Percent A 0.7 % (0-0.5); Immature Platelet Fraction Pct 9.4 % (0.9-11.2); Lymphocytes Absolute Auto 1.32 K/mm3 (0.9-3.2); Lymphocytes Percent Auto 22.9 % (18.3-44.2); Mean Corpuscular HGB Conc 33.6 g/dl (32-36); Mean Corpuscular Hemoglobin 33.7 pg (26-34); Mean Corpuscular Volume 100.5 fl (80-100); Mean Platelet Volume 11.2 fl (7.4-10.4); Monocytes Absolute Auto 0.4 K/mm3 (0.1-0.6); Monocytes Percent Auto 6.9 % (2.6-8.5); Neutrophils Absolute Auto 3.7 K/mm3 (1.3-6.7); Neutrophils Percent Auto 64.8 % (45.5-73.1); Platelet Count Result 115 k/mm3 (150-375); Red Blood Count 4.24 M/mm3 (4.6-6.20); Red Cell Distribution Width 14.4 % (11.5-14.5); White Blood Count 5.8 K/mm3 (4.5-10.0)
--- NOTE | 2024-07-25 12:28 | PC.NURSE ---
This patient, Bryce Sandhu, was received from IMU on 07/25/24 at 1228. Patient/family oriented to unit policies and routines
--- NOTE | 2024-07-25 12:37 | PC.NURSE ---
Report given to QIANA Dow. Patient made aware of transport to med-surge floor. Verbalizes understand. Patient transported via wheel chair to room 259 in no acute distress.
[2024-07-25 12:56] LABS: Glucose Point of Care 115 mg/dl (65-105)
--- NOTE | 2024-07-25 13:29 | P.PNIM_ITS ---
Progress Note: A&P Assessment and Plan (1) Alcohol withdrawal: Qualifiers: Complication of substance-induced condition: uncomplicated Qualified Code(s): F10.230 - Alcohol dependence with withdrawal, uncomplicated Code(s): F10.239 - Alcohol dependence with withdrawal, unspecified Status: Acute (2) Elevated LFTs: Code(s): R79.89 - Other specified abnormal findings of blood chemistry Status: Acute (3) Hypomagnesemia: Code(s): E83.42 - Hypomagnesemia Status: Acute (4) Hypertension: Code(s): I10 - Essential (primary) hypertension Status: Acute Plan This is a 54-year-old male with longstanding history of alcohol use alcohol withdrawal seizures hypertension GERD depression anxiety PTSD presented with symptoms of alcohol withdrawal. He drinks 1/5 of vodka a day and his withdrawal symptoms start within about 6-8 hours after his last drink. His last drink was 24 hours ago as a into due to going to alcohol rehab at [facility]. Unfortunately was unable to make it there due to withdrawal symptoms which included anxiety tremors nausea vomiting and slight headache. He denied any fever hallucinations chest pain shortness of breath hematemesis or diarrhea. In the ED was tachycardic and hypertensive. Laboratory evaluation showed mildly elevated LFTs. The alcohol level was 200. EKG showed sinus tachycardia. He received Librium on present to the ED. He also received phenobarbital and was repeated due to significantly elevated CIWA scores. He has been admitted to IMU since then. His been getting it scheduled Librium. He is also on CIWA protocol and getting 2 lorazepam regularly. His symptoms has improved however requiring less frequent dosing of lorazepam. Will continue to monitor today and slowly taper down Librium. Will transfer him down to medical for today. Electrolyte disorders replace and monitor Alcoholic hepatitis continue to monitor and improving Uncontrolled hypertension: Likely due to withdrawal currently improved on lisinopril and amlodipine and metoprolol. DVT prophylaxis SCDs Code status full code Subjective Date/time seen: 07/25/24 13:29 Interval history: No overnight events. On Librium. Still requiring IV lorazepam. Frequent dosing yesterday. Patient feels of bit shaky but overall feel better. Last drink on Sunday morning Review of Systems Review of Systems: All systems reviewed & are unremarkable except as noted in HPI and below Exam Narrative: GENERAL: Awake and alert oriented x3 in no acute distress. Well-nourished. - EYES: EOMI. Anicteric. - HENT: Moist mucous membranes. - LUNGS: Clear to auscultation bilateral ly, no wheezing, rhonchi, or rales. - CARDIOVASCULAR: Regular rate and rhyth m. No murmur. No JVD. - ABDOMEN: Soft, non-tender and non-dist ended. No palpable masses. - EXTREMITIES: No edema. Peripheral puls es 2+. Non-tender. Bilateral hand tremors - NEUROLOGIC: No focal neurological defi cits. CN II-XII grossly intact. - PSYCHIATRIC: Awake, Alert and oriented x 3. mood and affect: Mildly tremulous - SKIN: No rashes or lesions. Warm. - LYMPH: No cervical lymphadenopathy. Objective Data Vital Signs Vital Signs: Vital Signs - 24 hr 07/24/24 14:00 07/24/24 16:00 07/24/24 16:00 Temperature 97.8 F Pulse Rate 87 87 87 Respiratory Rate 18 Blood Pressure 156/96 H Pulse Oximetry 98 Oxygen Delivery 07/24/24 16:00 07/24/24 18:00 07/24/24 20:00 Temperature 97.8 F Pulse Rate 87 74 56 L Respiratory Rate 18 16 Blood Pressure 155/85 H Pulse Oximetry 98 99 Oxygen Delivery Room Air 07/24/24 20:00 07/24/24 20:00 07/24/24 20:00 Temperature Pulse Rate 94 94 Respiratory Rate 16 Blood Pressure 155/85 H Pulse Oximetry 99 Oxygen Delivery Room Air 07/24/24 21:28 07/24/24 22:00 07/25/24 00:00 Temperature 97.9 F Pulse Rate 88 96 76 Respiratory Rate 16 Blood Pressure 142/68 H Pulse Oximetry 96 Oxygen Delivery 07/25/24 00:00 07/25/24 00:00 07/25/24 00:00 Temperature Pulse Rate 78 78 Respiratory Rate 16 Blood Pressure 155/85 H Pulse Oximetry 99 Oxygen Delivery Room Air 07/25/24 02:00 07/25/24 04:00 07/25/24 04:00 Temperature Pulse Rate 88 78 Respiratory Rate 16 Blood Pressure 155/85 H Pulse Oximetry 99 Oxygen Delivery Room Air 07/25/24 04:00 07/25/24 04:00 07/25/24 06:00 Temperature 98 F Pulse Rate 78 83 86 Respiratory Rate 16 Blood Pressure 128/80 Pulse Oximetry 95 Oxygen Delivery 07/25/24 08:00 07/25/24 08:00 07/25/24 08:00 Temperature 97.8 F Pulse Rate 80 89 85 Respiratory Rate 14 14 Blood Pressure 145/91 H Pulse Oximetry 100 100 Oxygen Delivery Room Air 07/25/24 08:38 07/25/24 10:00 07/25/24 12:00 Temperature 98.3 F Pulse Rate 89 89 5 L Respiratory Rate 18 Blood Pressure 128/70 Pulse Oximetry 97 Oxygen Delivery 07/25/24 12:55 Temperature 96.5 F L Pulse Rate 75 Respiratory Rate 18 Blood Pressure 125/62 Pulse Oximetry 97 Oxygen Delivery Intake/Output Intake/Output: Intake & Output 07/22/24 07/23/24 07/24/24 07/25/24 23:59 23:59 23:59 23:59 Intake Total 240 1070 3680 840 Output Total 400 2200 4450 500 Balance -160 -2800 -770 340 Meds/Results Medications: Active Medications Generic Name Dose Route Start Last Admin Trade Name Freq PRN Reason Stop Dose Admin Acetaminophen 650 mg 07/22/24 18:09 Acetaminophen 325 Mg Tablet PO Q6H PRN Mild Pain (1-3) or Fever Amlodipine Besylate 10 mg 07/24/24 15:05 07/25/24 08:39 Amlodipine Besylate 10 Mg Tablet PO 10 mg DAILY DAWOOD Administration Chlordiazepoxide HCl 50 mg 07/24/24 06:00 07/25/24 12:01 Chlordiazepoxide (*Crx) 25 Mg Capsule PO 50 mg Q6HR DAWOOD Administration Folic Acid 1 mg 07/23/24 09:00 07/25/24 08:39 Folic Acid 1 Mg Tablet PO 1 mg DAILY DAWOOD Administration Hydralazine HCl 10 mg 07/24/24 15:04 Hydralazine Hcl 20 Mg/Ml Vial IV PUSH Q6H PRN Blood Pressure - High Lisinopril 20 mg 07/23/24 09:00 07/25/24 08:38 Lisinopril 20 Mg Tablet PO 20 mg DAILY DAWOOD Administration Loperamide HCl 2 mg 07/24/24 08:10 07/24/24 09:41 Loperamide Hcl 2 Mg Capsule PO 2 mg PRN PRN Administration Diarrhea Lorazepam 2 mg 07/24/24 19:41 07/24/24 21:29 Lorazepam Inj (*Crx) 2 Mg/Ml Vial IV PUSH 2 mg Q2H PRN Administration Alcohol Withdrawal Lorazepam 4 mg 07/24/24 19:41 Lorazepam Inj (*Crx) 2 Mg/Ml Vial IV PUSH Q2H PRN Alcohol Withdrawal Magnesium Oxide 400 mg 07/23/24 09:00 07/25/24 08:38 Magnesium Oxide 400 Mg Tablet PO 400 mg QAM DAWOOD Administration Metoprolol Tartrate 50 mg 07/22/24 23:20 07/25/24 08:38 Metoprolol Tartrate 50 Mg Tab PO 50 mg Q12HR DAWOOD Administration Multivitamins/Calcium 1 tablet 07/23/24 09:00 07/25/24 08:38 Therapeutic Multivitamins/Minerals Tab (*Bkc) PO 1 tablet QAM DAWOOD Administration Pantoprazole Sodium 40 mg 07/23/24 09:00 07/25/24 08:38 Pantoprazole 40 Mg Tablet PO 40 mg QAM DAWOOD Administration Potassium Chloride 40 meq 07/23/24 17:00 07/25/24 08:39 Potassium Chloride 20 Meq Packet (For Liquid) PO 40 meq BID DAWOOD Administration Quetiapine Fumarate 400 mg 07/24/24 22:05 07/24/24 22:40 Quetiapine Fumarate 100 Mg Tablet PO 400 mg HS DAWOOD Administration Thiamine HCl 100 mg 07/23/24 09:00 07/25/24 08:38 Thiamine Hcl 100 Mg Tablet PO 100 mg QAM DAWOOD Administration Labs Labs: Laboratory Results - last 24 hr 07/25/24 07/25/24 07/25/24 00:03 09:24 12:53 WBC 5.8 RBC 4.24 L Hgb 14.3 Hct 42.6 MCV 100.5 H MCH 33.7 MCHC 33.6 RDW 14.4 Plt Count 115 L MPV 11.2 H Immature Gran % (Auto) 0.7 H Neut % (Auto) 64.8 Lymph % (Auto) 22.9 [place] % (Auto) 6.9 Eos % (Auto) 3.8 Baso % (Auto) 0.9 Lymph # (Auto) 1.32 [place] # (Auto) 0.4 Eos # (Auto) 0.2 Baso # (Auto) 0.1 Abs Immat Gran (auto) 0.04 H Absolute Neuts (auto) 3.7 Absolute Nucleated RBC 0.000 Nucleated RBC % 0.0 % Immature Plt Fraction 9.4 POC Capillary Glucose 100 115 H
[2024-07-25 17:49] LABS: Glucose Point of Care 143 mg/dl (65-105)
[2024-07-25] MEDS: ACETAMINOPHEN 325 MG TABLET 650 MG PO (20:15)
[2024-07-25] MEDS: QUEtiapine FUMARATE 100 MG TABLET 400 MG PO (20:16)
[2024-07-26 00:19] VITALS: BP 132/79; PULSE 80; RESP 16; TEMP 36.4; O2SAT 96
[2024-07-26] MEDS: chlordiazePOXIDE (*CRX) 25 MG CAPSULE 50 MG PO ×3 (00:24→12:26)
[2024-07-26 00:38] LABS: Glucose Point of Care 131 mg/dl (65-105)
[2024-07-26 04:54] VITALS: BP 153/82; PULSE 75; RESP 16; TEMP 36.6; O2SAT 98
[2024-07-26 05:01] LABS: Glucose Point of Care 92 mg/dl (65-105)
[2024-07-26] MEDS: ACETAMINOPHEN 325 MG TABLET 650 MG PO (05:07)
[2024-07-26 05:46] LABS: Basophils Absolute Auto 0.1 K/mm3 (0.0-0.1); Eosinophils Absolute Auto 0.2 K/mm3 (0-0.3); Eosinophils Percent Auto 3.3 % (0-4.4); Hematocrit 44.9 % (42.0-52.0); Hemoglobin 15.1 g/dL (14.0-18.0); Immature Granulocyte Absolute 0.04 K/mm3 (0.00-0.031); Immature Granulocyte Percent A 0.6 % (0-0.5); Immature Platelet Fraction Pct 10.7 % (0.9-11.2); Lymphocytes Absolute Auto 2.47 K/mm3 (0.9-3.2); Lymphocytes Percent Auto 35.7 % (18.3-44.2); Mean Corpuscular HGB Conc 33.6 g/dl (32-36); Mean Corpuscular Hemoglobin 33.9 pg (26-34); Mean Corpuscular Volume 100.7 fl (80-100); Mean Platelet Volume 11.3 fl (7.4-10.4); Monocytes Absolute Auto 0.5 K/mm3 (0.1-0.6); Monocytes Percent Auto 7.5 % (2.6-8.5); Neutrophils Absolute Auto 3.6 K/mm3 (1.3-6.7); Neutrophils Percent Auto 51.9 % (45.5-73.1); Platelet Count Result 140 k/mm3 (150-375); Red Blood Count 4.46 M/mm3 (4.6-6.20); Red Cell Distribution Width 14.3 % (11.5-14.5); White Blood Count 6.9 K/mm3 (4.5-10.0)
[2024-07-26 05:56] LABS: Alanine Aminotransferase 171 U/L (6-50); Albumin Level 4.8 g/dL (3.5-5.1); Alkaline Phosphatase 84 U/L (38-126); Anion Gap 7 mmol/L (4-12); Aspartate Amino Transferase 139 U/L (17-59); Bilirubin,Total 0.7 mg/dL (0.2-1.3); Blood Urea Nitrogen 7 mg/dL (9-20); Calcium 9.9 mg/dL (8.4-10.2); Carbon Dioxide 26 mmol/L (22-30); Chloride 103 mmol/L (98-107); Estimated CRCL calculation 107 ml/min; Estimated Glomerular Filt Rate > 60; Glucose 87 mg/dL (65-110); Magnesium 1.7 mg/dL (1.6-2.3); Potassium 3.5 mmol/L (3.4-5.0); Sodium 136 mmol/L (137-145)
[2024-07-26 07:58] VITALS: BP 167/85; PULSE 74; RESP 20; TEMP 36.3; O2SAT 96
[2024-07-26 08:51] VITALS: PULSE 74
[2024-07-26] MEDS: PANTOPRAZOLE 40 MG TABLET PO (08:51)
[2024-07-26] MEDS: THERAPEUTIC MULTIVITAMINS/MINERALS TAB (*BKC) 1 TABLET PO (08:51)
[2024-07-26] MEDS: FOLIC ACID 1 MG TABLET PO (08:51)
[2024-07-26] MEDS: amLODIPine BESYLATE 10 MG TABLET PO (08:51)
[2024-07-26] MEDS: METOPROLOL TARTRATE 50 MG TAB PO (08:51)
[2024-07-26] MEDS: MAGNESIUM OXIDE 400 MG TABLET PO (08:51)
[2024-07-26] MEDS: lisinopriL 20 MG TABLET PO (08:51)
[2024-07-26] MEDS: THIAMINE HCL 100 MG TABLET PO (08:51)
[2024-07-26] MEDS: POTASSIUM CHLORIDE 20 MEQ PACKET (FOR LIQUID) 40 MEQ PO (08:52)
--- NOTE | 2024-07-26 10:29 | P.DS_ITS ---
DS: Admitting Diagnosis Discharge Date 07/26/2024 Admitting Diagnosis Alcohol withdrawal DS: Discharge Diagnosis Discharge Diagnosis (1) Alcohol withdrawal: Qualifiers: Complication of substance-induced condition: uncomplicated Qualified Code(s): F10.230 - Alcohol dependence with withdrawal, uncomplicated Code(s): F10.239 - Alcohol dependence with withdrawal, unspecified Status: Acute (2) Elevated LFTs: Code(s): R79.89 - Other specified abnormal findings of blood chemistry Status: Acute (3) Hypomagnesemia: Code(s): E83.42 - Hypomagnesemia Status: Acute (4) Hypertension: Code(s): I10 - Essential (primary) hypertension Status: Acute DS: Summary Hospital Course Hospital Course: This is a 54-year-old male with longstanding history of alcohol use alcohol withdrawal seizures hypertension GERD depression anxiety PTSD presented with symptoms of alcohol withdrawal. He drinks 1/5 of vodka a day and his withdrawal symptoms start within about 6-8 hours after his last drink. His last drink was 24 hours ago as a into due to going to alcohol rehab at [facility]. Unfortunately was unable to make it there due to withdrawal symptoms which included anxiety tremors nausea vomiting and slight headache. He denied any fever hallucinations chest pain shortness of breath hematemesis or diarrhea. In the ED was tachycardic and hypertensive. Laboratory evaluation showed mildly elevated LFTs. The alcohol level was 200. EKG showed sinus tachycardia. He received Librium on present to the ED. He also received phenobarbital and was repeated due to significantly elevated CIWA scores. He has been admitted to IMU since then. His been getting it scheduled Librium. He is also on CIWA protocol and getting 2 lorazepam regularly. His symptoms has improved however requiring less frequent dosing of lorazepam. Will continue to monitor today and slowly taper down Librium. CIWA score continues to improve. Will DC home. He is planned to go to alcohol rehab facility next week. Electrolyte disorders replace and monitor Alcoholic hepatitis continue to monitor and improving Uncontrolled hypertension: Likely due to withdrawal currently improved on lisinopril and amlodipine and metoprolol. DVT prophylaxis SCDs Code status full code Time Spent with Patient Time attestation: Total time spent providing and/or coordinating discharge services: 35 minutes Exam Narrative: GENERAL: Awake and alert oriented x3 in no acute distress. Well-nourished. - EYES: EOMI. Anicteric. - HENT: Moist mucous membranes. - LUNGS: Clear to auscultation bilateral ly, no wheezing, rhonchi, or rales. - CARDIOVASCULAR: Regular rate and rhyth m. No murmur. No JVD. - ABDOMEN: Soft, non-tender and non-dist ended. No palpable masses. - EXTREMITIES: No edema. Peripheral puls es 2+. Non-tender. Mild Bilateral hand tremors - NEUROLOGIC: No focal neurological defi cits. CN II-XII grossly intact. - PSYCHIATRIC: Awake, Alert and oriented x 3. mood and affect: Mildly tremulous - SKIN: No rashes or lesions. Warm. - LYMPH: No cervical lymphadenopathy. DS: Data Data Completed and Pending Labs on day of discharge: Labs from last 24 hours 07/26/24 07/26/24 07/26/24 05:31 04:57 00:19 WBC 6.9 RBC 4.46 L Hgb 15.1 Hct 44.9 MCV 100.7 H MCH 33.9 MCHC 33.6 RDW 14.3 Plt Count 140 L MPV 11.3 H Immature Gran % (Auto) 0.6 H Neut % (Auto) 51.9 Lymph % (Auto) 35.7 [place] % (Auto) 7.5 Eos % (Auto) 3.3 Baso % (Auto) 1.0 Lymph # (Auto) 2.47 [place] # (Auto) 0.5 Eos # (Auto) 0.2 Baso # (Auto) 0.1 Abs Immat Gran (auto) 0.04 H Absolute Neuts (auto) 3.6 Absolute Nucleated RBC 0.000 Nucleated RBC % 0.0 % Immature Plt Fraction 10.7 Sodium 136 L Potassium 3.5 Chloride 103 Carbon Dioxide 26 Anion Gap 7 BUN 7 L Creatinine 0.70 Estim Creat Clear Calc 107 Estimated GFR > 60 Glucose 87 POC Capillary Glucose 92 131 H Calcium 9.9 Magnesium 1.7 Total Bilirubin 0.7 AST 139 H ALT 171 H Alkaline Phosphatase 84 Total Protein 8.0 Albumin 4.8 07/25/24 07/25/24 17:46 12:53 WBC RBC Hgb Hct MCV MCH MCHC RDW Plt Count MPV Immature Gran % (Auto) Neut % (Auto) Lymph % (Auto) [place] % (Auto) Eos % (Auto) Baso % (Auto) Lymph # (Auto) [place] # (Auto) Eos # (Auto) Baso # (Auto) Abs Immat Gran (auto) Absolute Neuts (auto) Absolute Nucleated RBC Nucleated RBC % % Immature Plt Fraction Sodium Potassium Chloride Carbon Dioxide Anion Gap BUN Creatinine Estim Creat Clear Calc Estimated GFR Glucose POC Capillary Glucose 143 H 115 H Calcium Magnesium Total Bilirubin AST ALT Alkaline Phosphatase Total Protein Albumin Discharge Plan Discharge Attending physician on discharge: Benjamin Quick Discharging Clinician: Benjamin Quick Anticipated Discharge Date/Time: 07/26/24 10:31 Patient Disposition: Home, Self-Care Activity: as tolerated Diet: heart healthy Patient Instructions: Antibiotic Form Patient Language: Wolof Stand Alone Forms: General Discharge Information Follow-up/Referrals: [facility] [Primary Care Provider] - 1 Week Discharge Medications: New chlordiazepoxide HCl 25 mg capsule See Rx Instructions .ROUTE .COMPLEX Qty: 24 0RF Rx Instructions: take 2 tab three times daily x 2 days then 1 tab three times daily x 2 days then 1 tab twice daily x 2 days then 1 tab daily x 2 days then stop folic acid 1 mg Tablet 1 mg PO DAILY Qty: 30 0RF amlodipine 10 mg Tablet 10 mg PO DAILY Qty: 30 0RF Continued quetiapine 400 mg Tablet 400 mg PO HS omeprazole 20 mg Capsule,Delayed Release(Dr/Ec) 20 mg PO DAILY thiamine HCl (vitamin B1) [Vitamin B-1] 100 mg Tablet 100 mg PO QAM Qty: 90 0RF lisinopril 20 mg tablet 20 mg PO DAILY magnesium oxide 400 mg (241.3 mg magnesium) Tablet 400 mg PO QAM Qty: 30 0RF metoprolol tartrate 25 mg Tablet 50 mg PO Q12HR Qty: 60 0RF trazodone 100 mg tablet 100 mg PO HS Date of admission: 07/24/24 15:33 Primary Care Provider: [facility] Admitting Provider: Silvio Park Attending physician on admission: Jesi Norris Condition: Improved
[2024-07-26 11:59] VITALS: BP 159/89; PULSE 76; TEMP 36.2; O2SAT 98
[2024-07-26 12:32] LABS: Glucose Point of Care 86 mg/dl (65-105)
== END 2024-07-26 13:00 | disposition home or self-care (01) | DRG 897 ==
LOC: ANHED 08:51 → ANHIMU 13:02 → ANH2MED 07-26 07:13 → ANHIMU 07-29 14:00
PROVIDERS: Hospitalist; Internal Medicine; Physician Assistant; Admitting Provider Internal Medicine; Emergency Provider Emergency Medicine; Visit Provider Nurse Practitioner Acute Care
DX: F10.239 Alcohol dependence with withdrawal, unspecified (principal); E87.1 Hypo-osmolality and hyponatremia; I10 Essential (primary) hypertension; K70.10 Alcoholic hepatitis without ascites; E83.42 Hypomagnesemia; E87.6 Hypokalemia; K21.9 Gastro-esophageal reflux disease without esophagitis; F32.A Depression, unspecified; F41.9 Anxiety disorder, unspecified; F43.10 Post-traumatic stress disorder, unspecified; F17.210 Nicotine dependence, cigarettes, uncomplicated
CPT/HCPCS: 36415; 80053; 82077; 82948; 83735; 85025; 85027; 85055; 85610; 85730; 93005; 96372; 96374; 96375; 96376; 99285; A9270; G0378; J2060; J2405; J2560; J3411; J3475; J7030; J7042

== ENCOUNTER 2025-01-21 00:21 | Inpatient (IN) | payer BC, OTHER, SELFPAY ==
[2025-01-21] VITALS (20 sets, daily range): BP systolic 95–190; BP diastolic 59–121; PULSE 82–127; RESP 14–21; TEMP 36.4–37.2; O2SAT 91–99; BMI 30.1
--- NOTE | ~2025-01-21 | XR_ITS ---
Portable chest x-ray Comparison: 12/13/2020 Clinical History: Shortness of breath Findings: Lungs are clear, without focal consolidation or pleural effusion. Cardiomediastinal silho uette is stable. Bones and soft tissues are unremarkable. Impression: Normal chest. Reviewed, dictated and finalized at location . Impression: Normal chest.
--- NOTE | ~2025-01-21 | XR_ITS ---
AP and lateral views of the right hip Clinical history: Pain Findings: No acute fracture or dislocation is seen. Osseous alignment is anatomic. Right hip joint is intact. Soft tissues are unremarkable. Impression: No significant abnormality is seen. Reviewed, dictated and finalized at location M. Impression: No significant abnormality is seen.
--- OUTSIDE RECORDS SUMMARY | 2025-01-21 00:42 | XMS_ITS | Encounter Summary ---
Author Organization [facility] Healthcare Address [address] [place] [address] Care Team Providers Care Merchandise Flow Manager Name Role Phone Weston Mantilla DO Primary Care Provide r Kimberli Collins DPM Unavailable [phone] Encounter Details Date Type Department Care Team (Late st Contact Info) Description 12/26/2024 [facility] Post Discharge Follow up phone call [address] [address] Alannah Mack Social History Tobacco Use Types Packs/Day Years Used Date Smoking Tobacco: Former Cigarettes Smokeless Tobacco: Current Chew Alcohol Use Standard Drinks/Week Comments Yes 0 (1 standard drink = 0.6 oz pur e alcohol) [employer] [facility] Utilities Answer Date Recorded In the past 12 months has [employer] electric, gas, oil, or water company threatened to shut off services in your home? No 12/18/2024 Social Connection and Isolat ion Panel [NHANES] Answer Date Recorded In a typical week, how many times do you talk on the phone with family, friends, or neighbors? More than three times a week 12/18/2024 How often do you get togethe r with friends or relatives? More than three times a week 12/18/2024 How often do you attend chur ch or advent services? Never 12/18/2024 Do you belong to any clubs o r organizations such as congregational groups, unions, fraternal or athletic groups, or school groups? No 12/18/2024 How often do you attend meet ings of the clubs or organizations you belong to? Never 12/18/2024 Are you , , di vorced, , never , or living with a partner? 12/18/2024 AUDIT-C Answer Date Recorded Q1: How often do you have a drink containing alcohol? 4 or more times a week 12/18/2024 Q2: How many drinks containi ng alcohol do you have on a typical day when you are drinking? 10 or more Q3: How often do you have si x or more drinks on one occasion? Daily or almost daily 12/18/2024 Overall Financial Resource Strain (CARDIA) Answe r Date Recorded How hard is it for you to pa y for the very basics like food, housing, medical care, and heating? Not very hard 12/18/2024 Hunger Vital Sign Answer Date Recorded Within the past 12 months, y ou worried that your food would run out before you got the money to buy more. Never true 12/19/19 25 Within the past 12 months, t he food you bought just didn't last and you didn't have money to get more. Never true 12/18/2024 PRAPARE - Transportation Answer Date Re corded In the past 12 months, has l ack of transportation kept you from medical appointments or from getting medications? No 03/2025 In the past 12 months, has l ack of transportation kept you from meetings, work, or from getting things needed for daily living? No 12/18/2024 Housing Stability Vital Sign Answer Swapnil e Recorded In the last 12 months, was t here a time when you were not able to pay the mortgage or rent on time? No 12/18/2024 In the past 12 months, how m any times have you moved where you were living? 0 12/18/2024 At any time in the past 12 m [facility], were you homeless or living in a fpc (including now)? No 12/18/2024 Personal Safety Answer Date Recorded Have you ever been in or are you currently in a harmful physical or emotional relationship or is someone making you feel afraid or unsafe? 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
--- OUTSIDE RECORDS SUMMARY | 2025-01-21 00:42 | XMS_ITS | Continuity of Care Document ---
Author Organization [facility] Address [address] [place] [address] Phone Care Team Providers Care Railway Track Plant Operator Name Role Phone Cayetano Hardy MD Unavailable Unavailable Allergies, Adverse Reactions, Alerts Substance Reaction Status Criticality Penicillins Active No Information Medications Medication Instructions Dosage Effective Dates (start - stop) Status Comments clonidine HCl 0.1 mg tablet take 1 tablet by oral route 2 times every day 0.1 MG - Active avoid driving or operate machines chlordiazepoxide 5 mg capsule take 1 capsule by oral route 2 times every day as needed 5 MG - Active PRN for anxiety, avoid driving or operate machines Lexapro 10 mg tablet take 1 tablet by oral route every day 10 MG - Active Wellbutrin XL 300 mg 24 hr tablet, extended release take 1 tablet by oral route every morning 300 MG - Active Problems Condition Type Effective Dates (start - stop) Clini vincent Status Comments No Known Problems Procedures Procedure Date PREV VISIT, NEW, AGE 40-64 OFFICE/OUTPATIENT VISIT, NEW Advance Directives Directive Yes / No Effective Date File Name No Information Encounters Encounter Description Practice Location Reason(s) For Visit Diagnoses Date Provider Providers Copied on Encounter [facility], [address], [place], [place], [id number], [place] tel:[phone] [facility] No Information [address], [place], [place], [id number] , [place]. tel:[phone] PREV VISIT, NEW, AGE 40-64 [facility], [address], [place], [place], [id number], [place] tel:[phone] [facility] Family Medicine PHysical (chief complaint) Encounter for general adult medical exam w abnormal findingsEssential (primary) hypertensionHyponat remiaLeukocytosisGe neralized Anxiety DisorderChest pain [address], [place], [place], [id number] , [place]. tel:[phone] Family History Family Member Type Diagnosis Age At Onset Brother Problem (finding) Alive and well Father Problem (finding) Alive and well Mother Problem (finding) Alive and well Payers Payer name Insurance type Covered democrat ID Authoriza tion(s) No Information Social History Type Description Quantity Date Captured Comments Sex Male Smoking Status No Information Chief Complaint And Reason For Visit No Information Plan Of Treatment Date Type Action Status Goal Tobacco cessation counseling completed Goal Special diet education compl eted Referral Ordered: Psychiatry (related to Generalized Anxiety Disorder) ordered Referral Ordered: Referrals: Psychiatry. Evaluate and treat ordered History Of Present Illness Encounter Date Complaint History Of Prese nt Illness PHysical Pt needs annual physical, Pt has chronic alcohol dependency, pt was recently admitted to hospital for alcohol withdraw. Pt was binge drinking before that PT has PTSD and depression and anxiety Pt [facility] pt states that he has severe anxiety and panic attacks and he used to take librium/xanax which worked well for him. He failed buspar and vistaril pt has not drank for two weeks. Pt is in AA meeting now Pt also had mildly elevated WBC, low sodium, low kcl, elevated CPK and high TG. Pt did have chest pain but resolved. Pt did see cardiology and was told chest pain was related to panic and alcohol withdraw pt denies any chest pain Pt denies any sob Pt denies an suicidal or homicidal thought . Pt denies any crying spells. Pt states that [place] doctor does not want to give him anything for anxiety Pt denies any suicidal or homicidal thought Instructions Date Instruction Additional Infor mation Special diet education Related t o Body mass index (BMI) 40.0-44.9, adult Increase physical activity Relat ed to Encounter for general adult medical exam w abnormal findings Quit smoking Related to Encou nter for general adult medical exam w abnormal findings Weight management Related to Enc ounter for general adult medical exam w abnormal findings Assessments Type Assessment Date No Information
--- OUTSIDE RECORDS SUMMARY | 2025-01-21 00:42 | XMS_ITS | CONTINUITY OF CARE DOCUMENT ---
Author Name scotty fajardo Address Unknown Organization [facility] Address [address] [place] [address] Phone [phone] Care Team Providers Care Incident Response Engineer Name Role Phone Riki PEGUERO, Carlos Unavailable [phone] Carlos Lyn MD Unavailable [phone] INSURANCE PROVIDERS Payer name Policy type / Coverage type Van red republican ID [facility] [id number] [facility] Commercial insurance [employer] [id number]
--- OUTSIDE RECORDS SUMMARY | 2025-01-21 00:42 | XMS_ITS | Referral Summary ---
Author Organization [facility] [address] Address [address] [place] [address] Care Team Providers Care Aoc Operations Intelligence Officer Name Role Phone Weston Mantilla Primary Care Provide r Kimberli Collins DPM Unavailable [phone] Encounters Date Type Department Care Team Description 12/26/2024 [facility] [place] [address] MackAlannah ramírez Miguel Angel 12/17/2024 8:47 AM CDT - 12/20/2024 1:09 [place] [address] Jered Titus DO Novoselova, [place], MD Onaghise, Jude, MD Ogunremi, Olumide Omolulu, MD Burton, Jeffrey Ryan, DO Alcohol withdrawal syndrome with complication (HCC) (Primary Dx) Discharge Disposition: Discharge to home or self care 10/30/2024 7:40 AM CDT - 11/03/2024 5:58 [place] [address] Jennifer Pisano MD Onaghise, Jude, MD Alcohol abuse (Primary Dx); Chest pain, unspecified type; Alcohol withdrawal syndrome without complication (HCC) Discharge Disposition: Discharge to home or self care 10/21/2024 7:16 PM CDT - 10/25/2024 12:30 PM CDT Hospital Encounter [facility] [address] [place] [address] Grayson Donnelly MD Burton, DO Roberto Andrew Jose Daniel, MD Fall, initial encounter (Primary Dx); Alcohol withdrawal syndrome, with delirium (HCC); Alcohol abuse Discharge Disposition: Discharge to home or self care from Last 3 Months Allergies Active Allergy Reactions Criticality Noted Date Comments Penicillin Hives Medium 09/06/2023 Medications buPROPion XL (WELLBUTRIN XL) 300 mg 24 hr tablet Take 1 tablet (300 mg total) by mouth daily Active QUEtiapine (SEROquel) 400 mg tablet Take 1 tablet (400 mg total) by mouth nightly Active traZODone (DESYREL) 100 mg tablet Take 1 tablet (100 mg total) by mouth nightly Active multivit-min/foli c/vit K/lycop (MEN'S MULTIVITAMIN ORAL) Take 1 tablet by mouth daily Active zinc gluconate 50 mg tablet Take 1 tablet (50 mg total) by mouth daily Active thiamine (VITAMIN B1) 100 mg tablet Take 1 tablet (100 mg total) by mouth daily Active folic acid (FOLVITE) 1 mg tablet Take 1 tablet (1 mg total) by mouth daily Active omeprazole (PriLOSEC) 20 mg capsule Take 1 capsule (20 mg total) by mouth daily Active carvediloL (COREG) 25 mg tablet Take 1 tablet (25 mg total) by mouth 2 (two) times a day with meals 60 tablet 11 5 10/14/19 26 Active magnesium oxide (MAG-OX) 250 mg (150.8 mg elemental) tablet Take 1 tablet (250 mg total) by mouth daily Active potassium gluconate 500 mg (83 mg) tablet Take 1 tablet by mouth daily Active NIFEdipine (NIFEdipine XL) 60 mg 24 hr tablet Take 1 tablet (60 mg total) by mouth daily Active chlordiazePOXIDE (LIBRIUM) 10 mg capsule Take 1 capsule (10 mg total) by mouth 2 (two) times a day as needed for withdrawal symptoms for up to 5 days 10 capsule 5 Active Active Problems Problem Noted Date Diagnosed Date Alcohol withdrawal seizure without complication 10/30/2024 Fall, initial encounter 10/22/2024 Alcohol withdrawal syndrome with complication Acquired hammer toe of right foot 08/28/2023 Social History Tobacco Use Types Packs/Day Years Used Date Smoking Tobacco: Former Cigarettes Smokeless Tobacco: Current Chew Tobacco Cessation:Ready to Q uit: No; Counseling Given: Yes Alcohol Use Standard Drinks/Week Comments Yes 0 (1 standard drink = 0.6 oz pur e alcohol) [facility] Utilities Answer Date Recorded In the past 12 months has e [employer], gas, oil, or water [employer] threatened to shut off services in your [...] often do you attend chur ch or hinduism services? Never 12/18/2024 Do you belong to any clubs o r organizations such as restorationism groups, unions, fraternal or athletic groups, or [...] any time in the past 12 m [facility], were you homeless or living in a residential (including now)? No 12/18/2024 Personal Safety Answer Date Recorded Have you ever been in or are you currently in a harmful physical or emotional relationship or is someone making you feel afraid or unsafe? 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 Gender Identity Not on file Sexual Orientation Not on file Last Filed Vital Signs Vital Sign Reading Time Taken Comments Blood Pressure 150/99 12/20/2024 11:20 AM CDT Pulse 86 12/20/2024 11:20 AM CDT Temperature 36.8 C (98.3 F) 12/20/2024 11:20 AM CDT Respiratory Rate 19 12/20/2024 11:2 0 AM CDT Oxygen Saturation 98% 12/20/2024 11: 20 AM CDT Inhaled Oxygen Concentration - - Weight 101.2 kg (223 lb 1.7 oz) 12/18/2024 5:45 AM CDT Height 177.8 cm (5' 10) 12/18/2024 2:08 PM CDT Body Mass Index 32.01 12/18/2024 5:45 AM CDT Plan of Treatment Not on file Medical Devices Implanted Type Area Biometric Technician Device Identifier Shelf Expiration Date Model / Serial / Lot Boy [employer] Enio 1.1mm 152mm Trocar Point 2 End Style 1 Wire Fixation [id number] - [id number] - [id number] Implanted:Qty: 2 on 09/14/2023 by Kimberli Collins DPM at [facility] Explanted:03/13 (Quantity not on file) Right: [employer] 03/09/2032 [id number] / [id number] / [id number] Description:K-WIRE TO 3RD AN D 4TH TOES, RIGHT FOOT. COVERED WITH JERGENS BALLS Procedures Procedure Name Priority Date/Time Associated Diagnosis Comments CALCIUM,IONIZED, WHOLE BLOOD Routine 12/20/2024 8:34 AM CDT POCT GLUCOSE DEVICE Routine 12/20/2024 7 :02 AM CDT EGFR Routine 12/20/2024 3:38 AM CDT PHOSPHORUS Routine 12/20/2024 3:38 AM CDT BASIC METABOLIC PANEL Routine 12/20/2024 3:38 AM CDT CBC WITHOUT DIFFERENTIAL Routine 12/20/2024 3:38 AM CDT POCT GLUCOSE DEVICE Routine 12/20/2024 1 2:51 AM CDT POCT GLUCOSE DEVICE Routine 12/19/2024 9 :18 PM CDT POCT GLUCOSE DEVICE Routine 12/19/2024 4 :44 PM CDT POCT GLUCOSE DEVICE Routine 12/19/2024 1 1:44 AM CDT EGFR Routine 12/19/2024 6:02 AM CDT PHOSPHORUS Routine 12/19/2024 6:02 AM CDT MAGNESIUM Routine 12/19/2024 6:02 AM CDT CALCIUM,IONIZED, WHOLE BLOOD Routine 12/19/2024 6:02 AM CDT BASIC METABOLIC PANEL Routine 12/19/2024 6:02 AM CDT CBC WITHOUT DIFFERENTIAL Routine 12/19/2024 6:02 AM CDT POCT GLUCOSE DEVICE Routine 12/19/2024 5 :01 AM CDT POCT GLUCOSE DEVICE Routine 12/19/2024 1 2:35 AM CDT POCT GLUCOSE DEVICE Routine 12/18/2024 9 :42 PM CDT CRITICAL CARE Routine 12/18/2024 6:54 AM CDT Alcohol withdrawal syndrome with complication (HCC) EGFR Routine 12/18/2024 6:46 AM CDT PROTIME-INR Routine 12/18/2024 6:46 AM CDT PHOSPHORUS Routine 12/18/2024 6:46 AM CDT MAGNESIUM Routine 12/18/2024 6:46 AM CDT CALCIUM,IONIZED, WHOLE BLOOD Routine 12/18/2024 6:46 AM CDT BASIC METABOLIC PANEL Routine 12/18/2024 6:46 AM CDT CBC WITHOUT DIFFERENTIAL Routine 12/18/2024 6:46 AM CDT CRITICAL CARE Routine 12/17/2024 10:03 PM CDT Alcohol withdrawal syndrome with complication (HCC) EGFR STAT 12/17/2024 5:29 PM CDT CALCIUM,IONIZED, WHOLE BLOOD STAT 12/17/2024 5:29 PM CDT PHOSPHORUS STAT 12/17/2024 5:29 PM CDT MAGNESIUM STAT 12/17/2024 5:29 PM CDT BASIC METABOLIC PANEL STAT 12/17/2024 5:29 PM CDT SEPSIS LACTATE WITH REFLEX Timed 12/17/2024 5:29 PM CDT TROPONIN T HIGH-SENSITIVITY 6-HOUR Timed 12/17/2024 5:29 PM CDT ECG 12-LEAD STAT 12/17/2024 4:45 PM CDT POCT GLUCOSE DEVICE Routine 12/17/2024 3 :36 PM CDT CRITICAL CARE Routine 12/17/2024 3:34 PM CDT SEPSIS LACTATE WITH REFLEX Timed 12/17/2024 2:46 PM CDT BETA-HYDROXYBUTYRATE Add-On 12/17/2024 1:20 PM CDT TROPONIN T HIGH-SENSITIVITY 4-HR Timed 12/17/2024 1:20 PM CDT SEPSIS LACTATE WITH REFLEX STAT 12/17/2024 11:42 AM CDT TROPONIN T HIGH-SENSITIVITY 2-HOUR Timed 12/17/2024 11:[address] HEAD WO CONTRAST ED 12/17/2024 1 1:36 AM CDT GA CRITICAL CARE ILL/INJURED PATIENT INIT 30-74 MIN Routine 12/17/2024 11:24 AM CDT XR CHEST 1 VIEW ED 12/17/2024 9:54 AM CDT MAGNESIUM Add-On 12/17/2024 9:41 AM CDT ETHANOL Add-On 12/17/2024 9:41 AM CDT EGFR STAT 12/17/2024 9:41 AM CDT DIFFERENTIAL AUTO STAT 12/17/2024 9:4 1 AM CDT PRO B-TYPE NATRIURETIC PEPTIDE STAT 12/17/2024 9:41 AM CDT TROPONIN T HIGH-SENSITIVITY SERIES (BASELINE, 2HR, 4HR, 6HR) STAT 12/17/2024 9:41 AM CDT CBC WITH AUTO DIFFERENTIAL STAT 12/17/2024 9:41 AM CDT COMPREHENSIVE METABOLIC PANEL STAT 12/17/2024 9:41 AM CDT ECG 12-LEAD STAT 12/17/2024 8:50 AM CDT EGFR Routine 11/03/2024 7:22 AM CDT DIFFERENTIAL AUTO Routine 11/03/2024 7:2 2 AM CDT BASIC METABOLIC PANEL Routine 11/03/2024 7:22 AM CDT CBC WITH AUTO DIFFERENTIAL Routine 11/03/2024 7:22 AM CDT EGFR Routine 11/02/2024 6:57 AM CDT DIFFERENTIAL AUTO Routine 11/02/2024 6:5 7 AM CDT MAGNESIUM Routine 11/02/2024 6:57 AM CDT BASIC METABOLIC PANEL Routine 11/02/2024 6:57 AM CDT CBC WITH AUTO DIFFERENTIAL Routine 11/02/2024 6:57 AM CDT EGFR Routine 11/01/2024 5:58 AM CDT DIFFERENTIAL AUTO Routine 11/01/2024 5:5 8 AM CDT MAGNESIUM Routine 11/01/2024 5:58 AM CDT BASIC METABOLIC PANEL Routine 11/01/2024 5:58 AM CDT CBC WITH AUTO DIFFERENTIAL Routine 11/01/2024 5:58 AM CDT EGFR Routine 10/31/2024 4:16 AM CDT DIFFERENTIAL AUTO Routine 10/31/2024 4:1 6 AM CDT BASIC METABOLIC PANEL Routine 10/31/2024 4:16 AM CDT CBC WITH AUTO DIFFERENTIAL Routine 10/31/2024 4:16 AM CDT DRUGS OF ABUSE SCREEN, URINE WITHOUT CONFIRMATION STAT 10/30/2024 9:51 AM CDT TROPONIN T HIGH-SENSITIVITY 2-HOUR Timed 10/30/2024 9:51 AM CDT URINALYSIS AND REFLEX TO MICROSCOPIC AND CULTURE STAT 10/30/2024 9:51 AM CDT XR CHEST 1 VIEW ED 10/30/2024 9:38 AM CDT EGFR STAT 10/30/2024 7:53 AM CDT DIFFERENTIAL AUTO STAT 10/30/2024 7:5 3 AM CDT TROPONIN T HIGH-SENSITIVITY SERIES (BASELINE, 2HR, 4HR, 6HR) STAT 10/30/2024 7:53 AM CDT ETHANOL Routine 10/30/2024 7:53 AM CDT COMPREHENSIVE METABOLIC PANEL STAT 10/30/2024 7:53 AM CDT CBC WITH AUTO DIFFERENTIAL STAT 10/30/2024 7:53 AM CDT ECG 12-LEAD Routine 10/30/2024 7:52 AM CDT EGFR Routine 10/25/2024 3:33 AM CDT BASIC METABOLIC PANEL Routine 10/25/2024 3:33 AM CDT MAGNESIUM Routine 10/25/2024 3:33 AM CDT EGFR Routine 10/24/2024 5:45 AM CDT BASIC METABOLIC PANEL Routine 10/24/2024 5:45 AM CDT MAGNESIUM Routine 10/24/2024 5:45 AM CDT EGFR Routine 10/23/2024 6:01 AM CDT BASIC METABOLIC PANEL Routine 10/23/2024 6:01 AM CDT MAGNESIUM Routine 10/23/2024 6:01 AM CDT GA CRITICAL CARE ILL/INJURED PATIENT INIT 30-74 MIN Routine 10/22/2024 1:22 AM CDT DRUGS OF ABUSE SCREEN, URINE WITHOUT CONFIRMATION Routine 10/21/2024 9:32 PM CDT URINALYSIS AND REFLEX TO MICROSCOPIC AND CULTURE STAT 10/21/2024 9:[address] HEAD CERVICAL FACIAL WO CONTRAST ED 10/21/2024 8:26 PM CDT EGFR STAT 10/21/2024 8:02 PM CDT DIFFERENTIAL AUTO STAT 10/21/2024 8:0 2 PM CDT ETHANOL STAT 10/21/2024 8:02 PM CDT CBC WITH AUTO DIFFERENTIAL STAT 10/21/2024 8:02 PM CDT COMPREHENSIVE METABOLIC PANEL STAT 10/21/2024 8:02 PM CDT AMMONIA STAT 10/21/2024 8:02 PM CDT ECG 12-LEAD Routine 10/21/2024 7:21 PM CDT from Last 3 Months Results * Calcium, ionized, whole blood (12/20/2024 8:34 AM CDT) Pathologist [facility] Ca, ionized, bld 4.68 4.50 - 5.10 mg/dL Blood 12/20/2024 8:34 AM CDT 12/20/2024 8:47 AM CDT Meghana Chance MD LAB BLOOD ORDERABLES Lanette l Result Performing Organization Address City/[facility]/ZIP Co de Phone Number ETHAN [phone] [place] [address] * POCT glucose (12/20/2024 7:02 AM CDT) [facility] Glucose, POC 87 70 - 199 mg/dL POC Performer [id number] [facility] Blood 12/20/2024 7:02 AM CDT 12/20/2024 7:02 AM CDT Chito Miller MD LAB POCT ORDERABLES - DEVICE Final Result [facility] [id number] [facility] [place] [address] * eGFR (12/20/2024 3:38 AM CDT) [facility] eGFR >90 >=60 mL/min/1. 73 m2 Comment: Interpretive Data Reference Interval Normal >/= 90 mL/min/1.73m2 Mildly decreased* 60 - 89 mL/min/1.73m2 Mildly to moderately decreased 45 - 59 mL/min/1.73m2 Moderately to severely decreased 30 - 44 mL/min/1.73m2 Severely decreased 15 - 29 mL/min/1.73m2 Kidney Failure < 15 mL/min/1.73m2 *Relative to young adult level Estimated glomerular filtration rate is determined by the 2020 CKD-EPI equation recommended by the National Kidney Foundation (A Unifying Approach to GFR Estimation: Recommendations of the NKF-ASK Task Force on Reassessing the Inclusion of Race in Diagnosing Kidney Disease, JASN 2020). The CKD-EPI equation should not be used for patients with unstable renal function and has not been validated in children and those over 70. Current interpretive data was last reviewed 2021. Blood 12/20/2024 3:38 AM CDT 12/20/2024 5:25 AM CDT Meghana Chance MD LAB BLOOD ORDERABLES Lanette bartholomew Result [facility] [address] [place] [address] * (ABNORMAL) CBC without differential (12/20/2024 3:38 AM CDT) WBC 5.82 3.80 - 9.90 K/cumm Hgb 12.9(L) 13.0 - 17.5 g/dL [facility] Hct 39.0 38.9 - 50.3 % [facility] Plt 172 150 - 400 K/cumm [facility] MPV 11.3 9.1 - 12.3 fL [facility] RBC 3.97(L) 4.30 - 5.80 M/cumm [facility] MCV 98.2(H) 81.3 - 96.4 fL [facility] MCH 32.5 27.1 - 33.3 pg [facility] MCHC 33.1 32.3 - 35.7 g/dL [facility] RDW CV 12.4 11.1 - 14.9 % [facility] RDW SD 44.8 35.7 - 48.1 fL [facility] NRBC abs 0.00 0.00 - 0.01 K/cumm [facility] Blood 12/20/2024 3:38 AM CDT 12/20/2024 5:27 AM CDT Meghana Chance MD LAB BLOOD ORDERABLES Lanette l Result Performing Organization Address City/[facility]/ZIP Co de Phone Number ETHAN [address] [address] [place] [address] * Phosphorus (12/20/2024 3:38 AM CDT) Phosphorus, pl 3.8 2.3 - 4.5 mg/dL Blood 12/20/2024 3:38 AM CDT 12/20/2024 5:25 AM CDT Meghana Chance MD LAB BLOOD ORDERABLES Lanette l Result Performing Organization Address [facility] Phone Number [facility] [address] [place] [address] [place] [address] * (ABNORMAL) Basic metabolic panel (12/20/2024 3:38 AM CDT) Sodium 137 135 - 145 mmol/L Potassium, pl 3.2(L) 3.3 - 4.9 mmol/L [facility] Chloride 99 97 - 110 mmol/L [facility] CO2 23 22 - 32 mmol/L [facility] Anion gap 15 2 - 15 mmol/L [facility] BUN 8 6 - 25 mg/dL [facility] Creatinine 0.72(L) 0.80 - 1.30 mg/dL [facility] Glucose 103 70 - 199 mg/dL [facility] Comment: Interpretive Data Fasting glucose >/= 126 mg/dl is diagnostic for diabetes. Fasting is defined as no caloric intake for at least 8 hours. Fasting glucose between 100 mg/dl to 125 mg/dl is diagnostic of prediabetes. In a patient with classic symptoms of hyperglycemia or hyperglycemic crisis, a random glucose >/= 200 mg/dl is diagnostic for diabetes. In the absence of unequivocal hyperglycemia, results should be confirmed by repeat testing. The classification and Diagnosis of Diabetes Diabetes Care 202; 46: S19-S40. Current interpretive data was last revised 2022. Calcium 9.1 8.5 - 10.3 mg/dL [facility] Blood 12/20/2024 3:38 AM CDT 12/20/2024 5:25 AM CDT Meghana Chance MD LAB BLOOD ORDERABLES Lanette l Result Performing Organization Address City/[facility] Co de Phone Number ETHAN STAHL [address] [place] [address] [place] [address] * POCT glucose (12/20/2024 12:51 AM CDT) Glucose, POC 109 70 - 199 mg/dL POC Performer [id number] [facility] Blood 12/20/2024 12:5 1 AM CDT 12/20/2024 12:51 AM CDT Chito Miller MD LAB POCT ORDERABLES - DEVICE Final Result Performing Organization Address [facility] de Phone Number ETHAN STAHL [address] [address] [place] [address] [place] [address] * POCT glucose (12/19/2024 9:18 PM CDT) Glucose, POC 96 70 - 199 mg/dL POC Performer [id number] [facility] Blood 12/19/2024 9:18 PM CDT 12/19/2024 9:18 PM CDT Chito Miller MD LAB POCT ORDERABLES - DEVICE Final Result Performing Organization Address City/[facility] Co de Phone Number ETHAN STAHL [address] [address] [facility] [address] [place] [address] * POCT glucose (12/19/2024 4:44 PM CDT) Glucose, POC 89 70 - 199 mg/dL POC Performer [id number] [facility] Blood 12/19/2024 4:44 PM CDT 12/19/2024 4:44 PM CDT Chito Miller MD LAB POCT ORDERABLES - DEVICE Final Result Performing Organization Address [facility] Co de Phone Number ETHAN STAHL [address] [address] [facility] [address] [place] [address] * POCT glucose (12/19/2024 11:44 AM CDT) Pathologist [facility] Glucose, POC 96 70 - 199 mg/dL POC Performer [id number] [facility] Blood 12/19/2024 11:4 4 AM CDT 12/19/2024 11:44 AM CDT Chito Miller MD LAB POCT ORDERABLES - DEVICE Final Result Performing Organization Address [facility] de Phone Number ETHAN [address] [address] [place] [address] [place] [address] * (ABNORMAL) Calcium, ionized, whole blood (12/19/2024 6:02 AM CDT) [facility] Ca, ionized, bld 4.06(L) 4.50 - 5.10 mg/dL Blood 12/19/2024 6:02 AM CDT 12/19/2024 6:08 AM CDT Meghana Chance MD LAB BLOOD ORDERABLES Lanette l Result Performing Organization Address [facility] Co de Phone Number ETHAN [phone] [address] [facility] [address] [place] [address] * eGFR (12/19/2024 6:02 AM CDT) [facility] eGFR >90 >=60 mL/min/1. 73 m2 Comment: Interpretive Data Reference Interval Normal >/= 90 mL/min/1.73m2 Mildly decreased* 60 - 89 mL/min/1.73m2 Mildly to moderately decreased 45 - 59 mL/min/1.73m2 Moderately to severely decreased 30 - 44 mL/min/1.73m2 Severely decreased 15 - 29 mL/min/1.73m2 Kidney Failure < 15 mL/min/1.73m2 *Relative to young adult level Estimated glomerular filtration rate is determined by the 2020 CKD-EPI equation recommended by the National Kidney Foundation (A Unifying Approach to GFR Estimation: Recommendations of the NKF-ASK Task Force on Reassessing the Inclusion of Race in Diagnosing Kidney Disease, JASN 202). The CKD-EPI equation should not be used for patients with unstable renal function and has not been validated in children and those over 70. Current interpretive data was last reviewed 2021. Blood 12/19/2024 6:02 AM CDT 12/19/2024 6:10 AM CDT Meghana Chance MD LAB BLOOD ORDERABLES Lanette bartholomew Result [facility] [address] [address] [place] [address] * (ABNORMAL) CBC without differential (12/19/2024 6:02 AM CDT) WBC 4.56 3.80 - 9.90 K/cumm Hgb 12.9(L) 13.0 - 17.5 g/dL [facility] Hct 39.2 38.9 - 50.3 % [facility] Plt 125(L) 150 - 400 K/cumm [facility] MPV 11.1 9.1 - 12.3 fL [facility] RBC 3.96(L) 4.30 - 5.80 M/cumm [facility] MCV 99.0(H) 81.3 - 96.4 fL [facility] MCH 32.6 27.1 - 33.3 pg [facility] MCHC 32.9 32.3 - 35.7 g/dL [facility] RDW CV 12.5 11.1 - 14.9 % [facility] RDW SD 45.5 35.7 - 48.1 fL [facility] NRBC abs 0.00 0.00 - 0.01 K/cumm [facility] Blood 12/19/2024 6:02 AM CDT 12/19/2024 6:10 AM CDT Meghana Chance MD LAB BLOOD ORDERABLES Lanette l Result Performing Organization Address City/[facility]/ZIP Co de Phone Number ETHAN STAHL [address] [address] [facility] [address] [place] [address] * Phosphorus (12/19/2024 6:02 AM CDT) Phosphorus, pl 3.6 2.3 - 4.5 mg/dL Blood 12/19/2024 6:02 AM CDT 12/19/2024 6:10 AM CDT Meghana Chance MD LAB BLOOD ORDERABLES Lanette l Result Performing Organization Address [facility] Co de Phone Number ALFREDOAYDE STAHL [phone] [address] [facility] [place] [address] [place] [address] * Magnesium (12/19/2024 6:02 AM CDT) Pathologist [facility] Magnesium 1.8 1.4 - 2.5 mg/dL Blood 12/19/2024 6:02 AM CDT 12/19/2024 6:10 AM CDT Meghana Chance MD LAB BLOOD ORDERABLES Lanette l Result Performing Organization Address [facility] Co de Phone Number ALFREDOAYDE STAHL [phone] [address] [facility] [address] [place] [address] * (ABNORMAL) Basic metabolic panel (12/19/2024 6:02 AM CDT) Sodium 135 135 - 145 mmol/L Potassium, pl 3.1(L) 3.3 - 4.9 mmol/L [facility] Chloride 101 97 - 110 mmol/L [facility] CO2 24 22 - 32 mmol/L [facility] Anion gap 10 2 - 15 mmol/L [facility] BUN 4(L) 6 - 25 mg/dL [facility] Creatinine 0.64(L) 0.80 - 1.30 mg/dL [facility] Glucose 101 70 - 199 mg/dL [facility] Comment: Interpretive Data Fasting glucose >/= 126 mg/dl is diagnostic for diabetes. Fasting is defined as no caloric intake for at least 8 hours. Fasting glucose between 100 mg/dl to 125 mg/dl is diagnostic of prediabetes. In a patient with classic symptoms of hyperglycemia or hyperglycemic crisis, a random glucose >/= 200 mg/dl is diagnostic for diabetes. In the absence of unequivocal hyperglycemia, results should be confirmed by repeat testing. The classification and Diagnosis of Diabetes Diabetes Care 2021; 46: S19-S40. Current interpretive data was last revised 2022. Calcium 9.1 8.5 - 10.3 mg/dL [facility] Blood 12/19/2024 6:02 AM CDT 12/19/2024 6:10 AM CDT Meghana Chance MD LAB BLOOD ORDERABLES Lanette l Result ETHAN STAHL [address] [place] [address] * POCT glucose (12/19/2024 5:01 AM CDT) Glucose, POC 117 70 - 199 mg/dL POC Performer [id number] [facility] Blood 12/19/2024 5:01 AM CDT 12/19/2024 5:01 AM CDT John Barone MD LAB POCT ORDERABLES - DEVICE Fi nal Result ETHAN [address] [address] [place] [address] * POCT glucose (12/19/2024 12:35 AM CDT) Glucose, POC 173 70 - 199 mg/dL POC Performer [id number] [facility] Blood 12/19/2024 12:3 5 AM CDT 12/19/2024 12:35 AM CDT Result Rubio Barone MD LAB POCT ORDERABLES - DEVICE Fi nal Result Performing Organization Address City/[facility]/ZIP Co de Phone Number ETHAN STAHL [address] [address] [facility] [address] [place] [address] * POCT glucose (12/18/2024 9:42 PM CDT) Glucose, POC 107 70 - 199 mg/dL POC Performer [id number] [facility] Blood 12/18/2024 9:42 PM CDT 12/18/2024 9:42 PM CDT Result Rubio Barone MD LAB POCT ORDERABLES - DEVICE Fi nal Result Performing Organization Address [facility] Co de Phone Number ETHAN STAHL [address] [address] [place] [address] [place] [address] * Critical Care (12/18/2024 6:54 AM CDT) Narrative Meghana Chance MD - 12/18/2024 6:54 AM CDT Meghana Chance MD 12/18/2024 1:38 PM Critical Care Performed by: Meghana Chance MD Authorized by: Meghana Chance MD CRITICAL CARE: Team: GAURAV Shift: AM Level of Billing: Subsequent Hospital Visit Level 3 My time spent with this patient was 45 minutes: Critical Provider Statement: I have seen and examined the patient on this day of service. I have reviewed and confirmed the history, physical exam, laboratory, and radiographic data as documented in the ICU note. I have reviewed and discussed my treatment plan with the patient's team and other medical/senior wind energy consultant staff. This time was in addition to and separate from care provided by other practitioners on this day of service. Result Rubio Chance MD IN CLINIC/BEDSIDE ORDERAB LES Final Result * (ABNORMAL) Calcium, ionized, whole blood (12/18/2024 6:46 AM CDT) Ca, ionized, bld 4.14(L) 4.50 - 5.10 mg/dL Blood 12/18/2024 6:46 AM CDT 12/18/2024 7:03 AM CDT Meghana Chance MD LAB BLOOD ORDERABLES Lanette l Result Performing Organization Address City/[facility]/ZIP Co de Phone Number ETHAN STAHL [address] [place] [address] * eGFR (12/18/2024 6:46 AM CDT) eGFR >90 >=60 mL/min/1. 73 m2 Comment: Interpretive Data Reference Interval Normal >/= 90 mL/min/1.73m2 Mildly decreased* 60 - 89 mL/min/1.73m2 Mildly to moderately decreased 45 - 59 mL/min/1.73m2 Moderately to severely decreased 30 - 44 mL/min/1.73m2 Severely decreased 15 - 29 mL/min/1.73m2 Kidney Failure < 15 mL/min/1.73m2 *Relative to young adult level Estimated glomerular filtration rate is determined by the 2020 CKD-EPI equation recommended by the National Kidney Foundation (A Unifying Approach to GFR Estimation: Recommendations of the NKF-ASK Task Force on Reassessing the Inclusion of Race in Diagnosing Kidney Disease, JASN 2020). The CKD-EPI equation should not be used for patients with unstable renal function and has not been validated in children and those over 70. Current interpretive data was last reviewed 2021. Blood 12/18/2024 6:46 AM CDT 12/18/2024 7:03 AM CDT Meghana Chance MD LAB BLOOD ORDERABLES Lanette l Result Performing Organization Address City/[facility]/ZIP Co de Phone Number ETHAN STAHL [address] [place] [address] [place] [address] * Protime-INR (12/18/2024 6:46 AM CDT) PT 10.9 9.7 - 13.0 sec INR 1.01 0.90 - 1.20 ETHAN STAHL Comment: Interpretive data Oral anticoagulant therapeutic ranges: Venous thromboembolism prophylaxis or treatment: 2.0-3.0 CARDIOLOGY Standard range: 2.0-3.0 High-intensity range: 2.5-3.5 Refer to indication-specific guidelines for appropriate target ranges for prosthetic heart valve replacement. Current interpretive data was last revised on 2019. Blood 12/18/2024 6:46 AM CDT 12/18/2024 7:04 AM CDT Meghana Chance MD LAB BLOOD ORDERABLES Lanette l Result Performing Organization Address City/[facility]/ZIP Co de Phone Number ETHAN STAHL [address] [place] [address] * (ABNORMAL) CBC without differential (12/18/2024 6:46 AM CDT) WBC 5.46 3.80 - 9.90 K/cumm Hgb 13.8 13.0 - 17.5 g/dL [facility] Hct 40.7 38.9 - 50.3 % [facility] Plt 145(L) 150 - 400 K/cumm [facility] MPV 10.8 9.1 - 12.3 fL [facility] RBC 4.15(L) 4.30 - 5.80 M/cumm [facility] MCV 98.1(H) 81.3 - 96.4 fL [facility] MCH 33.3 27.1 - 33.3 pg [facility] MCHC 33.9 32.3 - 35.7 g/dL [facility] RDW CV 12.8 11.1 - 14.9 % [facility] RDW SD 45.6 35.7 - 48.1 fL [facility] NRBC abs 0.00 0.00 - 0.01 K/cumm [facility] Blood 12/18/2024 6:46 AM CDT 12/18/2024 7:03 AM CDT Meghana Chance MD LAB BLOOD ORDERABLES Lanette l Result Performing Organization Address City/[facility]/ZIP Co de Phone Number ETHAN STAHL [address] [place] [address] * Phosphorus (12/18/2024 6:46 AM CDT) Phosphorus, pl 2.6 2.3 - 4.5 mg/dL Blood 12/18/2024 6:46 AM CDT 12/18/2024 7:03 AM CDT Meghana Chance MD LAB BLOOD ORDERABLES Lanette l Result [facility] [address] [place] [address] * Magnesium (12/18/2024 6:46 AM CDT) Pathologist [facility] Magnesium 2.4 1.4 - 2.5 mg/dL Blood 12/18/2024 6:46 AM CDT 12/18/2024 7:03 AM CDT Meghana Chance MD LAB BLOOD ORDERABLES Lanette l Result Performing Organization Address City/[facility]/ZIP Co de Phone Number ALFREDO[address] [address] [place] [address] * (ABNORMAL) Basic metabolic panel (12/18/2024 6:46 AM CDT) Pathologist [facility] Sodium 136 135 - 145 mmol/L Potassium, pl 3.4 3.3 - 4.9 mmol/L [facility] Chloride 96(L) 97 - 110 mmol/L [facility] CO2 26 22 - 32 mmol/L [facility] Anion gap 14 2 - 15 mmol/L [facility] BUN 4(L) 6 - 25 mg/dL [facility] Creatinine 0.58(L) 0.80 - 1.30 mg/dL [facility] Comment:Icteric sample, test results may be affected. Glucose 89 70 - 199 mg/dL [facility] Comment: Interpretive Data Fasting glucose >/= 126 mg/dl is diagnostic for diabetes. Fasting is defined as no caloric intake for at least 8 hours. Fasting glucose between 100 mg/dl to 125 mg/dl is diagnostic of prediabetes. In a patient with classic symptoms of hyperglycemia or hyperglycemic crisis, a random glucose >/= 200 mg/dl is diagnostic for diabetes. In the absence of unequivocal hyperglycemia, results should be confirmed by repeat testing. The classification and Diagnosis of Diabetes Diabetes Care 2021; 46: S19-S40. Current interpretive data was last revised 2022. Calcium 8.8 8.5 - 10.3 mg/dL ETHAN STAHL Blood 12/18/2024 6:46 AM CDT 12/18/2024 7:03 AM CDT us Meghana Chance MD LAB BLOOD ORDERABLES Lanette bartholomew Result ETHAN STAHL [address] [place] [address] * Critical Care (12/17/2024 10:03 PM CDT) Narrative Hi Hough MD - 12/17/2024 10:03 PM CDT Hi Hough MD 12/23/2024 4:37 PM Critical Care Performed by: Derian Hinds NP Authorized by: Derian Hinds NP CRITICAL CARE: Team: GAURAV Shift: PM Level of Billing: Subsequent Hospital Visit Level 3 My time spent with this patient was 45 minutes: Critical Provider Statement: I have seen and examined the patient on this day of service. I have reviewed and confirmed the history, physical exam, laboratory, and radiographic data as documented in the ICU note. I have reviewed and discussed my treatment plan with the patient's team and other medical/senior wind energy consultant staff. This time was in addition to and separate from care provided by other practitioners on this day of service. us Derian Hinds NP IN CLINIC/BEDSIDE ORDERABL ES Final Result * Troponin T high-sensitivity 6-hour (12/17/2024 5:29 PM CDT) Trop T hs 10 <=22 ng/L Comment: Interpretive Data For further hscTnT resources including the diagnostic algorithm and an aid in interpretation, copy and paste this link: https://nrl.testcatalog.org/show/hsTrop Current Interpretive Data last revised 2020. Trop T hs delta See Comment ng/L ETHAN STAHL Comment:Inappropriate collec tion time to report a delta. Trop T hs pct delta See Comment % ETHAN STAHL Comment:Inappropriate collec tion time to report a delta. Trop T hs interp See Comment ETHAN STAHL Comment:Inappropriate collec tion time to report a delta. Blood 12/17/2024 5:29 PM CDT 12/17/2024 5:59 PM CDT Christina Shepard MD LAB BLOOD ORDERABLES F inal Result ETHAN [address] [facility] [place] [address] [place] [address] * Sepsis Lactate w/ Reflex (12/17/2024 5:29 PM CDT) Sepsis Lactate 1.8 0.7 - 2.0 mmol/L Blood 12/17/2024 5:29 PM CDT 12/17/2024 5:59 PM CDT Jered Titus DO LAB BLOOD ORDERABLES Final Res ult Performing Organization Address [facility] Co de Phone Number ETHAN [address] [place] [address] [place] [address] * (ABNORMAL) Calcium, ionized, whole blood (12/17/2024 5:29 PM CDT) Ca, ionized, bld 3.99(L) 4.50 - 5.10 mg/dL Blood 12/17/2024 5:29 PM CDT 12/17/2024 5:59 PM CDT Meghana Chance MD LAB BLOOD ORDERABLES Lanette l Result Performing Organization Address City/[facility]/ZIP Co de Phone Number ETHAN [address] [place] [address] [place] [address] * eGFR (12/17/2024 5:29 PM CDT) eGFR >90 >=60 mL/min/1. 73 m2 Comment: Interpretive Data Reference Interval Normal >/= 90 mL/min/1.73m2 Mildly decreased* 60 - 89 mL/min/1.73m2 Mildly to moderately decreased 45 - 59 mL/min/1.73m2 Moderately to severely decreased 30 - 44 mL/min/1.73m2 Severely decreased 15 - 29 mL/min/1.73m2 Kidney Failure < 15 mL/min/1.73m2 *Relative to young adult level Estimated glomerular filtration rate is determined by the 2020 CKD-EPI equation recommended by the National Kidney Foundation (A Unifying Approach to GFR Estimation: Recommendations of the NKF-ASK Task Force on Reassessing the Inclusion of Race in Diagnosing Kidney Disease, JASN 2020). The CKD-EPI equation should not be used for patients with unstable renal function and has not been validated in children and those over 70. Current interpretive data was last reviewed 2021. Blood 12/17/2024 5:29 PM CDT 12/17/2024 5:59 PM CDT Meghana Chance MD LAB BLOOD ORDERABLES Lanette l Result Performing Organization Address [facility] Co de Phone Number ETHAN STAHL [address] [place], [place] [id number] * (ABNORMAL) Phosphorus (12/17/2024 5:29 PM CDT) Phosphorus, pl 2.1(L) 2.3 - 4.5 mg/dL Blood 12/17/2024 5:29 PM CDT 12/17/2024 5:59 PM CDT Meghana Chance MD LAB BLOOD ORDERABLES Lanette l Result Performing Organization Address City/[facility] [place] [address] [address] [place] [address] * (ABNORMAL) Magnesium (12/17/2024 5:29 PM CDT) Magnesium 1.1(L) 1.4 - 2.5 mg/dL Blood 12/17/2024 5:29 PM CDT 12/17/2024 5:59 PM CDT Meghana Chance MD LAB BLOOD ORDERABLES Lanette l Result [address] [place] [address] * (ABNORMAL) Basic metabolic panel (12/17/2024 5:29 PM CDT) Sodium 138 135 - 145 mmol/L Potassium, pl 3.4 3.3 - 4.9 mmol/L [facility] Chloride 97 97 - 110 mmol/L [facility] CO2 24 22 - 32 mmol/L [facility] Anion gap 17(H) 2 - 15 mmol/L [facility] BUN 6 6 - 25 mg/dL [facility] Creatinine 0.50(L) 0.80 - 1.30 mg/dL [facility] Glucose 90 70 - 199 mg/dL [facility] Comment: Interpretive Data Fasting glucose >/= 126 mg/dl is diagnostic for diabetes. Fasting is defined as no caloric intake for at least 8 hours. Fasting glucose between 100 mg/dl to 125 mg/dl is diagnostic of prediabetes. In a patient with classic symptoms of hyperglycemia or hyperglycemic crisis, a random glucose >/= 200 mg/dl is diagnostic for diabetes. In the absence of unequivocal hyperglycemia, results should be confirmed by repeat testing. The classification and Diagnosis of Diabetes Diabetes Care 202; 46: S19-S40. Current interpretive data was last revised 2022. Calcium 8.8 8.5 - 10.3 mg/dL [facility] Blood 12/17/2024 5:29 PM CDT 12/17/2024 5:59 PM CDT Meghana Chance MD LAB BLOOD ORDERABLES Lanette l Result ETHAN STAHL [address] [address] [place] [address] * ECG 12 lead (12/17/2024 4:45 PM CDT) 12/17/2024 4:45 PM CDT Narrative [facility] - 12/17/2024 6:24 PM CDT Vent Rate: 119 bpm RR Interval: 503 msec GA Interval: 149 msec QRS Duration: 81 msec QT Interval: 310 msec QTC Interval: 381 msec P-R-T Connell: 56 - 38 - 44 degrees IMPRESSION: SINUS TACHYCARDIA ABNORMAL RHYTHM ECG Electronically Signed By: Dr. Adriana Hernandez [facility] Meghana Chance MD ECG ORDERABLES Final Res ult Performing Organization Address City/[facility]/ZIP Co de Phone Number [facility] * POCT glucose (12/17/2024 3:36 PM CDT) Glucose, POC 98 70 - 199 mg/dL POC Performer [phone] ETHAN STAHL Blood 12/17/2024 3:36 PM CDT 12/17/2024 3:36 PM CDT Meghana Chance MD LAB POCT ORDERABLES - DEV ICE Final Result Performing Organization Address [facility] Co de Phone Number ETHAN [address] [place] [address] * Critical Care (12/17/2024 3:34 PM CDT) Narrative Meghana Chance MD - 12/17/2024 3:34 PM CDT Meghana Chance MD 12/17/2024 5:04 PM Critical Care Performed by: Meghana Chance MD Authorized by: Meghana Chance MD CRITICAL CARE: Team: GAURAV Shift: AM Level of Billing: Critical Care My time spent with this patient was 98 minutes: Critical Provider Statement: I have seen and examined the patient on this day of service. I have reviewed and confirmed the history, physical exam, laboratory and radiologic data as documented in the signed ICU note. I have reviewed and discussed my treatment plan with the ICU team and other medical/senior wind energy consultant staff, making frequent assessments and decisions regarding this patient's complex medical care. Critical Care time was exclusive of time spent performing separately billed procedures, treating other patients, and teaching. This time was in addition to and separate from critical care provided by other practitioners in my group on this day of service. Critical Care was necessary to treat or prevent imminent or life-threatening deterioration of the following conditions: I spent time reviewing and interpreting data from bedside monitors, laboratory results, and imaging, I spent time discussing the management of this critically ill patient with consultants and the medical staff and I spent time documenting in the medical record Meghana Chance MD IN CLINIC/BEDSIDE ORDERAB LES Final Result * (ABNORMAL) Sepsis Lactate w/ Reflex (12/17/2024 2:46 PM CDT) Pathologist [facility] Sepsis Lactate 5.7(C) 0.7 - 2.0 mmol/L Comment:Critical result call ed to and read back by Sarah Grimes (RN_) on 12/17/2024 15:28:04 CDT_ to Cathi Dixon . Blood 12/17/2024 2:46 PM CDT 12/17/2024 3:04 PM CDT Jered Titus DO LAB BLOOD ORDERABLES Final Res ult [facility] [address] [place] [address] * Troponin T high-sensitivity 4-hour (12/17/2024 1:20 PM CDT) Pathologist [facility] Trop T hs 10 <=22 ng/L Comment: Interpretive Data For further hscTnT resources including the diagnostic algorithm and an aid in interpretation, copy and paste this link: https://nrl.testcatalog.org/show/hsTrop Current Interpretive Data last revised 2020. Trop T hs delta 1 ng/L [facility] Trop T hs interp Insignificant [facility] Blood 12/17/2024 1:20 PM CDT 12/17/2024 1:29 PM CDT Christina Shepard MD LAB BLOOD ORDERABLES F inal Result ETHAN STAHL [address] [address] [place] [address] [place] [address] * (ABNORMAL) Beta-hydroxybutyrate (12/17/2024 1:20 PM CDT) Beta-Hydroxybut yrate 0.8(H) <=0.5 mmol/L Blood 12/17/2024 1:20 PM CDT 12/17/2024 1:48 PM CDT Jered Titus DO LAB BLOOD ORDERABLES Final Res ult Performing Organization Address [facility] de Phone Number ETHAN STAHL [address] [place] [address] * Troponin T high-sensitivity 2-hour (12/17/2024 11:42 AM CDT) Trop T hs 10 <=22 ng/L Comment: Interpretive Data For further hscTnT resources including the diagnostic algorithm and an aid in interpretation, copy and paste this link: https://nrl.testcatalog.org/show/hsTrop Current Interpretive Data last revised 2020. Trop T hs delta 1 ng/L ETHAN Trop T hs interp Insignificant ETHAN Blood 12/17/2024 11:4 2 AM CDT 12/17/2024 12:04 PM CDT Christina Shepard MD LAB BLOOD ORDERABLES F inal Result Performing Organization Address [facility]/ZIP Co de Phone Number ETHAN STAHL [address] [place] [address] [place], [place] [id number] * (ABNORMAL) Sepsis Lactate w/ Reflex (12/17/2024 11:42 AM CDT) Sepsis Lactate 6.9(C) 0.7 - 2.0 mmol/L Comment:Alert Lactate called to and read back by Kenzie Cordero at 12/17/2024 12:09:20 CDT by Kallie Sabillon. Blood 12/17/2024 11:4 2 AM CDT 12/17/2024 12:03 PM CDT us Jered Titus DO LAB BLOOD ORDERABLES Final Res ult ETHAN STAHL [address] [place] [address] * CT Head WO Contrast (12/17/2024 11:36 AM CDT) Anatomical Region Laterality Modality Head and Neck N/A Computed Tomogra phy 12/17/2024 11:4 2 AM CDT Impressions 12/17/2024 11:42 AM CDT No intracranial bleed, mass or acute infarct. Electronically signed by: Yumiko Smith M.D. Narrative 12/17/2024 11:42 AM CDT EXAMINATION: CT HEAD WO CONTRAST HISTORY: The patient is a 54-year-old who fell down, injuring his head. TECHNIQUE: Axial images were obtained through the brain with thin sections and viewed both in soft tissue and bone window settings. Following this, coronal and sagittal reconstructions were performed. Comparison made with the previous study dated 10/21/2024. FINDINGS: Axial images through the brain reveals the 4th, 3rd and lateral ventricles to be normal in size and position. Cerebral sulci not prominent. No intracerebral hemorrhage or extra-axial fluid collection is noted. Images obtained in the coronal and sagittal planes adds no further information. Images obtained at bone window settings reveal the cranial vault to be intact. Mastoid air cells and paranasal sinuses are normally aerated. Procedure Note Yumiko Smith MD - 12/17/2024 EXAMINATION: CT HEAD WO CONTRAST HISTORY: The patient is a 54-year-old who fell down, injuring his head. TECHNIQUE: Axial images were obtained through the brain with thin sections and viewed both in soft tissue and bone window settings. Following this, coronal and sagittal reconstructions were performed. Comparison made with the previous study dated 10/21/2024. FINDINGS: Axial images through the brain reveals the 4th, 3rd and lateral ventricles to be normal in size and position. Cerebral sulci not prominent. No intracerebral hemorrhage or extra-axial fluid collection is noted. Images obtained in the coronal and sagittal planes adds no further information. Images obtained at bone window settings reveal the cranial vault to be intact. Mastoid air cells and paranasal sinuses are normally aerated. IMPRESSION: No intracranial bleed, mass or acute infarct. Electronically signed by: Yumiko Smith M.D. us Jerde Titus DO IMG CT PROCEDURES Final Result * GA CRITICAL CARE ILL/INJURED PATIENT INIT 30-74 MIN (12/17/2024 11:24 AM CDT) Narrative Jered Titus DO - 12/17/2024 11:24 AM CDT Jered Titus DO 12/17/2024 1:52 PM Critical Care Performed by: Jered Titus DO Authorized by: Jered Titus DO Critical care provider statement: As reflected in the history, physical exam, orders, notes, and/or MDM, I was personally present while the patient was critically ill and provided critical care services for 34 minutes, excluding time involved in separately billable procedures. Critical care was necessary to treat or prevent imminent or life-threatening deterioration of the following condition(s): Acute alcohol withdrawal Alcoholic ketoacidosis lactic acidosis and dehydration Critical care was time spent by me providing the following: continuous telemetry, continuous pulse oximetry, serial bedside patient exams, continuous capnography and resuscitation with fluids sedatives and psychotropic medications I provided emergent necessary critical care medicine services to this patient. I ordered and reviewed test results and/or imaging studies. I spent time discussing the management of this critically ill patient with consultants and the medical staff. I spent time discussing the management and therapeutic options for this critically ill patient with the patient themselves or with the appropriate designated surrogate decision-maker. I spent time documenting in the medical record. I admitted this patient to an Intensive Care unit (ICU) and discussed management with the admitting team. Jered Titus DO IN CLINIC/BEDSIDE ORDERABLES F inal Result * XR Chest 1 Vw Portable (if patient condition/safety warrant portable) (12/17/2024 9:54 AM CDT) Anatomical Region Laterality Modality Body, Chest N/A Computed Radiogr aphy 12/17/2024 9:56 AM CDT Impressions 12/17/2024 9:56 AM CDT No acute findings. Electronically signed by: Ajit Aguillon M.D. Narrative 12/17/2024 9:56 AM CDT EXAMINATION: XR CHEST 1 VIEW DATE: 12/17/2024 9:40 AM HISTORY: Shortness of breath, hypertension seizures alcohol abuse FINDINGS:Compared with study of 10/30/2024, heart size normal. Lungs clear Procedure Note Ajit Aguillon MD - 12/17/2024 EXAMINATION: XR CHEST 1 VIEW DATE: 12/17/2024 9:40 AM HISTORY: Shortness of breath, hypertension seizures alcohol abuse FINDINGS:Compared with study of 10/30/2024, heart size normal. Lungs clear IMPRESSION: No acute findings. Electronically signed by: Ajit Aguillon M.D. Jered Titus DO IMG XR PROCEDURES Final Result * Troponin T high-sensitivity series (baseline, 2hr, 4hr, 6hr) (12/17/2024 9:41 AM CDT) Trop T hs 9 <=22 ng/L Comment: Interpretive Data For further hscTnT resources including the diagnostic algorithm and an aid in interpretation, copy and paste this link: https://nrl.testcatalog.org/show/hsTrop Current Interpretive Data last revised 2020. Blood 12/17/2024 9:41 AM CDT 12/17/2024 9:47 AM CDT us Jered Titus DO LAB BLOOD ORDERABLES Edited Re sult - Final ETHAN [address] [address] [place] [address] * eGFR (12/17/2024 9:41 AM CDT) eGFR >90 >=60 mL/min/1. 73 m2 Comment: Interpretive Data Reference Interval Normal >/= 90 mL/min/1.73m2 Mildly decreased* 60 - 89 mL/min/1.73m2 Mildly to moderately decreased 45 - 59 mL/min/1.73m2 Moderately to severely decreased 30 - 44 mL/min/1.73m2 Severely decreased 15 - 29 mL/min/1.73m2 Kidney Failure < 15 mL/min/1.73m2 *Relative to young adult level Estimated glomerular filtration rate is determined by the 2020 CKD-EPI equation recommended by the National Kidney Foundation (A Unifying Approach to GFR Estimation: Recommendations of the NKF-ASK Task Force on Reassessing the Inclusion of Race in Diagnosing Kidney Disease, JASN 2020). The CKD-EPI equation should not be used for patients with unstable renal function and has not been validated in children and those over 70. Current interpretive data was last reviewed 2021. Blood 12/17/2024 9:41 AM CDT 12/17/2024 9:47 AM CDT us Jered Titus DO LAB BLOOD ORDERABLES Final Res ult ETHAN [address] [place] [address] * (ABNORMAL) Differential, auto (12/17/2024 9:41 AM CDT) Neutrophil abs 9.85(H) 1.50 - 6.50 K/cumm Imm gran abs 0.06 0.00 - 0.10 K/cumm [facility] Lymphocyte abs 1.60 0.80 - 3.30 K/cumm [facility] Monocyte abs 0.73 0.20 - 0.80 K/cumm [facility] Eosinophil abs 0.05 0.00 - 0.50 K/cumm [facility] Basophil abs 0.09 0.00 - 0.10 K/cumm [facility] Neutrophil pct 79.6 % [facility] Comment: Interpretive Data Percent cell count reference ranges are not reported, since discordance with absolute values may lead to misinterpretation of CBC data. Current Interpretive Data was last revised on 2017. Imm gran pct 0.5 % ETHAN Comment: Interpretive Data Percent cell count reference ranges are not reported, since discordance with absolute values may lead to misinterpretation of CBC data. Current Interpretive Data was last revised on 2017. Lymphocyte pct 12.9 % ETHAN Comment: Interpretive Data Percent cell count reference ranges are not reported, since discordance with absolute values may lead to misinterpretation of CBC data. Current Interpretive Data was last revised on 2017. Monocyte pct 5.9 % ETHAN Comment: Interpretive Data Percent cell count reference ranges are not reported, since discordance with absolute values may lead to misinterpretation of CBC data. Current Interpretive Data was last revised on 2017. Eosinophil pct 0.4 % ETHAN Comment: Interpretive Data Percent cell count reference ranges are not reported, since discordance with absolute values may lead to misinterpretation of CBC data. Current Interpretive Data was last revised on 2017. Basophil pct 0.7 % [facility] Comment: Interpretive Data Percent cell count reference ranges are not reported, since discordance with absolute values may lead to misinterpretation of CBC data. Current Interpretive Data was last revised on 2017. Blood 12/17/2024 9:41 AM CDT 12/17/2024 9:48 AM CDT us Jered Titus DO LAB BLOOD ORDERABLES Final Res ult ETHAN [address] [place] [address] * Pro B-type natriuretic peptide (12/17/2024 9:41 AM CDT) NT-proBNP <36 <=300 pg/mL Comment: Interpretive Comments: A. Dyspnea in Acute Care Setting All Ages: < 300 pg/ml, acute heart failure unlikely. < 50 yrs: 300 - 450 pg/ml, further investigation warranted. > 450 pg/ml, acute heart failure likely. 50 - 74 yrs: 300 - 900 pg/ml, further investigation warranted. > 900 pg/ml, acute heart failure likely . > or = 75 yrs: 450 - 1800 pg/ml, further investigation warranted. > 1800 pg/ml, acute heart failure likely. B. Non-acute Setting < 75 yrs < 125 pg/ml, rules out heart failure. > or = 125 pg/ml, further investigation warranted. > or = 75 yrs < 450 pg/ml, rules out heart failure. > or = 450 pg/ml, further investigation warranted. - Knowledge of each individual patient's NT-proBNP range may be more useful than using similar cut-points for every patient. Please note that marked elevations in NT-proBNP levels may be observed in state other than Left Ventricular Congestive Failure, including: acute coronary syndromes, right heart strain/failure (including pulmonary embolism and cor pulmonale), critical illness, renal failure, as well as advanced age. - References: 1. Douglas CARABALLO et.al. Eur Heart J. 2006:27:330-337. 2. Beckie RW, Eduard MORRIS. J. AM Misa Cardiol: Cardiovasc Imag. 2009;2: 216- 225. Interpretive Data Last Revised Date: 2018. Blood 12/17/2024 9:41 AM CDT 12/17/2024 9:47 AM CDT us Jered Titus DO LAB BLOOD ORDERABLES Final Res ult [facility] [address] [place] [address] * (ABNORMAL) CBC with auto differential (12/17/2024 9:41 AM CDT) WBC 12.38(H) 3.80 - 9.90 K/cumm Hgb 14.4 13.0 - 17.5 g/dL [facility] Hct 43.7 38.9 - 50.3 % [facility] Plt 175 150 - 400 K/cumm [facility] Comment:No clot detected in sample. MPV 10.9 9.1 - 12.3 fL [facility] RBC 4.42 4.30 - 5.80 M/cumm [facility] MCV 98.9(H) 81.3 - 96.4 fL [facility] MCH 32.6 27.1 - 33.3 pg [facility] MCHC 33.0 32.3 - 35.7 g/dL [facility] RDW CV 12.9 11.1 - 14.9 % [facility] RDW SD 46.7 35.7 - 48.1 fL [facility] NRBC abs 0.00 0.00 - 0.01 K/cumm [facility] Morphologic Screen Results confirmed by manual morphology review. [facility] Blood 12/17/2024 9:41 AM CDT 12/17/2024 9:48 AM CDT Jered Titus DO LAB BLOOD ORDERABLES Final Res ult Performing Organization Address [facility] de Phone Number [facility]AN STA[facility] [address] [facility] [address] [place] [address] * Magnesium (12/17/2024 9:41 AM CDT) Magnesium 1.5 1.4 - 2.5 mg/dL Blood 12/17/2024 9:41 AM CDT 12/17/2024 11:25 AM CDT Jered Titus LAB BLOOD ORDERABLES Final Res ult Performing Organization Address [facility] de Phone Number ETHAN [address] [place] [address] [place] [address] * (ABNORMAL) Ethanol (12/17/2024 9:41 AM CDT) Ethanol 173(H) <=10 mg/dL Comment: Interpretive Data Legal limit of intoxication > or = 80 mg/dL Levels > or = 400 mg/dL are potentially TOXIC. Current interpretive data was last revised on 2018. Blood 12/17/2024 9:41 AM CDT 12/17/2024 11:25 AM CDT Jered Titus DO LAB BLOOD ORDERABLES Final Res ult [facility] [address] [place] [address] * (ABNORMAL) Comprehensive metabolic panel (12/17/2024 9:41 AM CDT) Sodium 145 135 - 145 mmol/L Potassium, pl 3.7 3.3 - 4.9 mmol/L [facility] Chloride 98 97 - 110 mmol/L [facility] CO2 25 22 - 32 mmol/L [facility] Anion gap 22(H) 2 - 15 mmol/L [facility] BUN 9 6 - 25 mg/dL [facility] Creatinine 0.74(L) 0.80 - 1.30 mg/dL [facility] Glucose 103 70 - 199 mg/dL [facility] Comment: Interpretive Data Fasting glucose >/= 126 mg/dl is diagnostic for diabetes. Fasting is defined as no caloric intake for at least 8 hours. Fasting glucose between 100 mg/dl to 125 mg/dl is diagnostic of prediabetes. In a patient with classic symptoms of hyperglycemia or hyperglycemic crisis, a random glucose >/= 200 mg/dl is diagnostic for diabetes. In the absence of unequivocal hyperglycemia, results should be confirmed by repeat testing. The classification and Diagnosis of Diabetes Diabetes Care 202; 46: S19-S40. Current interpretive data was last revised 2022. Calcium 9.2 8.5 - 10.3 mg/dL [facility] Bilirubin, total 0.3 0.1 - 1.2 mg/dL [facility] Protein, pl 7.3 6.5 - 8.5 g/dL [facility] Albumin 4.3 3.5 - 5.0 g/dL [facility] Alk phos 89 40 - 130 Units/L [facility] ALT 14 7 - 55 Units/L [facility] AST 26 10 - 50 Units/L [facility] Blood 12/17/2024 9:41 AM CDT 12/17/2024 9:47 AM CDT Jered Titus DO LAB BLOOD ORDERABLES Final Res ult Performing Organization Address City/[facility] de Phone Number ETHAN STAHL [address] [place] [address] * ECG 12 lead (12/17/2024 8:50 AM CDT) 12/17/2024 8:50 AM CDT Narrative [facility] - 12/17/2024 6:31 PM CDT Vent Rate: 145 bpm RR Interval: 413 msec GA Interval: 131 msec QRS Duration: 86 msec QT Interval: 290 msec QTC Interval: 373 msec P-R-T Connell: 38 - -69 - 46 degrees IMPRESSION: SINUS TACHYCARDIA, POSSIBLE ATRIAL FLUTTER LOW QRS VOLTAGE IN PRECORDIAL LEADS [QRS DEFLECTION < 1.0 mV IN CHEST LEADS] PATTERN CONSISTENT WITH PULMONARY DISEASE Poor R-wave progression Electronically Signed By: Dr. Adriana Hernandez [facility] Christina Shepard MD ECG ORDERABLES Final Result Performing Organization Address [facility] de Phone Number [facility] [employer] [facility] * eGFR (11/03/2024 7:22 AM CDT) eGFR >90 >=60 mL/min/1. 73 m2 Comment: Interpretive Data Reference Interval Normal >/= 90 mL/min/1.73m2 Mildly decreased* 60 - 89 mL/min/1.73m2 Mildly to moderately decreased 45 - 59 mL/min/1.73m2 Moderately to severely decreased 30 - 44 mL/min/1.73m2 Severely decreased 15 - 29 mL/min/1.73m2 Kidney Failure < 15 mL/min/1.73m2 *Relative to young adult level Estimated glomerular filtration rate is determined by the 2020 CKD-EPI equation recommended by the National Kidney Foundation (A Unifying Approach to GFR Estimation: Recommendations of the NKF-ASK Task Force on Reassessing the Inclusion of Race in Diagnosing Kidney Disease, JASN 2020). The CKD-EPI equation should not be used for patients with unstable renal function and has not been validated in children and those over 70. Current interpretive data was last reviewed 2021. Blood 11/03/2024 7:22 AM CDT 11/03/2024 7:38 AM CDT us Maria E Cristina Ayala NP LAB BLOOD ORDERABLES Final Result ETHAN [address] Department [place] [address] * (ABNORMAL) Differential, auto (11/03/2024 7:22 AM CDT) Neutrophil abs 4.5 1.5 - 6.5 K/cumm Imm gran abs 0.1 0.0 - 0.1 K/cumm [facility] Lymphocyte abs 2.4 0.8 - 3.3 K/cumm [facility] Monocyte abs 1.0(H) 0.2 - 0.8 K/cumm [facility] Eosinophil abs 0.3 0.0 - 0.5 K/cumm [facility] Basophil abs 0.1 0.0 - 0.1 K/cumm [facility] Neutrophil pct 53.2 % [facility] Comment: Interpretive Data Percent cell count reference ranges are not reported, since discordance with absolute values may lead to misinterpretation of CBC data. Current Interpretive Data was last revised on 2017. Imm gran pct 0.8 % [facility] Comment: Interpretive Data Percent cell count reference ranges are not reported, since discordance with absolute values may lead to misinterpretation of CBC data. Current Interpretive Data was last revised on 2017. Lymphocyte pct 29.0 % [facility] Comment: Interpretive Data Percent cell count reference ranges are not reported, since discordance with absolute values may lead to misinterpretation of CBC data. Current Interpretive Data was last revised on 2017. Monocyte pct 11.7 % [facility] Comment: Interpretive Data Percent cell count reference ranges are not reported, since discordance with absolute values may lead to misinterpretation of CBC data. Current Interpretive Data was last revised on 2017. Eosinophil pct 3.9 % [facility] Comment: Interpretive Data Percent cell count reference ranges are not reported, since discordance with absolute values may lead to misinterpretation of CBC data. Current Interpretive Data was last revised on 2017. Basophil pct 1.4 % [facility] Comment: Interpretive Data Percent cell count reference ranges are not reported, since discordance with absolute values may lead to misinterpretation of CBC data. Current Interpretive Data was last revised on 2017. Blood 11/03/2024 7:22 AM CDT 11/03/2024 7:38 AM CDT Maria E Cristina Ayala NP LAB BLOOD ORDERABLES Final Result [facility] [address] [place] [address] * (ABNORMAL) CBC with auto differential (11/03/2024 7:22 AM CDT) WBC 8.4 3.8 - 9.9 K/cumm Hgb 13.7 13.0 - 17.5 g/dL [facility] Hct 44.4 38.9 - 50.3 % [facility] Plt 235 150 - 400 K/cumm [facility] MPV 10.4 9.1 - 12.3 fL [facility] RBC 4.19(L) 4.30 - 5.80 M/cumm [facility] MCV 106.0(H) 81.3 - 96.4 fL [facility] Comment:MCV delta possibly d ue to low sample volume. MCH 32.7 27.1 - 33.3 pg [facility] MCHC 30.9(L) 32.3 - 35.7 g/dL [facility] RDW CV 13.1 11.1 - 14.9 % [facility] RDW SD 51.0(H) 35.7 - 48.1 fL [facility] NRBC abs 0.00 0.00 - 0.01 K/cumm [facility] Blood 11/03/2024 7:22 AM CDT 11/03/2024 7:38 AM CDT Maria E Cristina Ayala NP LAB BLOOD ORDERABLES Final Result Performing Organization Address City/[facility]/ZIP Co de Phone Number ETHAN [address] [place] [address] * (ABNORMAL) Basic metabolic panel (11/03/2024 7:22 AM CDT) Pathologist [facility] Sodium 137 135 - 145 mmol/L Potassium, pl 3.7 3.3 - 4.9 mmol/L [facility] Chloride 101 97 - 110 mmol/L [facility] CO2 23 22 - 32 mmol/L [facility] Anion gap 13 2 - 15 mmol/L [facility] BUN 8 6 - 25 mg/dL [facility] Creatinine 0.77(L) 0.80 - 1.30 mg/dL [facility] Glucose 91 70 - 199 mg/dL [facility] Comment: Interpretive Data Fasting glucose >/= 126 mg/dl is diagnostic for diabetes. Fasting is defined as no caloric intake for at least 8 hours. Fasting glucose between 100 mg/dl to 125 mg/dl is diagnostic of prediabetes. In a patient with classic symptoms of hyperglycemia or hyperglycemic crisis, a random glucose >/= 200 mg/dl is diagnostic for diabetes. In the absence of unequivocal hyperglycemia, results should be confirmed by repeat testing. The classification and Diagnosis of Diabetes Diabetes Care 2021; 46: S19-S40. Current interpretive data was last revised 2022. Calcium 9.3 8.5 - 10.3 mg/dL [facility] Blood 11/03/2024 7:22 AM CDT 11/03/2024 7:38 AM CDT Maria E Ayala NP LAB BLOOD ORDERABLES Final Result ETHAN [address] [place] [address] * eGFR (11/02/2024 6:57 AM CDT) Pathologist [facility] eGFR >90 >=60 mL/min/1. 73 m2 Comment: Interpretive Data Reference Interval Normal >/= 90 mL/min/1.73m2 Mildly decreased* 60 - 89 mL/min/1.73m2 Mildly to moderately decreased 45 - 59 mL/min/1.73m2 Moderately to severely decreased 30 - 44 mL/min/1.73m2 Severely decreased 15 - 29 mL/min/1.73m2 Kidney Failure < 15 mL/min/1.73m2 *Relative to young adult level Estimated glomerular filtration rate is determined by the 2020 CKD-EPI equation recommended by the National Kidney Foundation (A Unifying Approach to GFR Estimation: Recommendations of the NKF-ASK Task Force on Reassessing the Inclusion of Race in Diagnosing Kidney Disease, JASN 202). The CKD-EPI equation should not be used for patients with unstable renal function and has not been validated in children and those over 70. Current interpretive data was last reviewed 2021. Blood 11/02/2024 6:57 AM CDT 11/02/2024 7:14 AM CDT Maria E Ayala NP LAB BLOOD ORDERABLES Final Result [facility] [address] [place] [address] * Differential, auto (11/02/2024 6:57 AM CDT) Neutrophil abs 2.7 1.5 - 6.5 K/cumm Imm gran abs 0.0 0.0 - 0.1 K/cumm [facility] Lymphocyte abs 2.3 0.8 - 3.3 K/cumm [facility] Monocyte abs 0.8 0.2 - 0.8 K/cumm [facility] Eosinophil abs 0.3 0.0 - 0.5 K/cumm [facility] Basophil abs 0.1 0.0 - 0.1 K/cumm [facility] Neutrophil pct 43.1 % [facility] Comment: Interpretive Data Percent cell count reference ranges are not reported, since discordance with absolute values may lead to misinterpretation of CBC data. Current Interpretive Data was last revised on 2017. Imm gran pct 0.5 % [facility] Comment: Interpretive Data Percent cell count reference ranges are not reported, since discordance with absolute values may lead to misinterpretation of CBC data. Current Interpretive Data was last revised on 2017. Lymphocyte pct 36.6 % [facility] Comment: Interpretive Data Percent cell count reference ranges are not reported, since discordance with absolute values may lead to misinterpretation of CBC data. Current Interpretive Data was last revised on 2017. Monocyte pct 13.1 % [facility] Comment: Interpretive Data Percent cell count reference ranges are not reported, since discordance with absolute values may lead to misinterpretation of CBC data. Current Interpretive Data was last revised on 2017. Eosinophil pct 5.1 % [facility] Comment: Interpretive Data Percent cell count reference ranges are not reported, since discordance with absolute values may lead to misinterpretation of CBC data. Current Interpretive Data was last revised on 2017. Basophil pct 1.6 % [facility] Comment: Interpretive Data Percent cell count reference ranges are not reported, since discordance with absolute values may lead to misinterpretation of CBC data. Current Interpretive Data was last revised on 2017. Blood 11/02/2024 6:57 AM CDT 11/02/2024 7:16 AM CDT Maria E Ayala [employer] LAB BLOOD ORDERABLES Final Result [facility] [address] [place] [address] * (ABNORMAL) CBC with auto differential (11/02/2024 6:57 AM CDT) WBC 6.3 3.8 - 9.9 K/cumm Hgb 14.4 13.0 - 17.5 g/dL [facility] Hct 43.1 38.9 - 50.3 % [facility] Plt 276 150 - 400 K/cumm [facility] MPV 11.0 9.1 - 12.3 fL [facility] RBC 4.32 4.30 - 5.80 M/cumm [facility] MCV 99.8(H) 81.3 - 96.4 fL [facility] MCH 33.3 27.1 - 33.3 pg [facility] MCHC 33.4 32.3 - 35.7 g/dL [facility] RDW CV 12.8 11.1 - 14.9 % [facility] RDW SD 47.2 35.7 - 48.1 fL [facility] NRBC abs 0.00 0.00 - 0.01 K/cumm [facility] Blood 11/02/2024 6:57 AM CDT 11/02/2024 7:16 AM CDT Maria E Ayala NP LAB BLOOD ORDERABLES Final Result Performing Organization Address [facility] Co de Phone Number [facility] [address] [place] [address] * Magnesium (11/02/2024 6:57 AM CDT) Pathologist [facility] Magnesium 1.8 1.4 - 2.5 mg/dL Blood 11/02/2024 6:57 AM CDT 11/02/2024 7:14 AM CDT John Barone MD LAB BLOOD ORDERABLES Final Resu lt Performing Organization Address [facility] de Phone Number [facility] [address] [place] [address] [place] [address] * Basic metabolic panel (11/02/2024 6:57 AM CDT) Pathologist [facility] Sodium 139 135 - 145 mmol/L Potassium, pl 3.5 3.3 - 4.9 mmol/L [facility] Chloride 102 97 - 110 mmol/L [facility] CO2 25 22 - 32 mmol/L [facility] Anion gap 12 2 - 15 mmol/L [facility] BUN 8 6 - 25 mg/dL [facility] Creatinine 0.80 0.80 - 1.30 mg/dL [facility] Glucose 86 70 - 199 mg/dL [facility] Comment: Interpretive Data Fasting glucose >/= 126 mg/dl is diagnostic for diabetes. Fasting is defined as no caloric intake for at least 8 hours. Fasting glucose between 100 mg/dl to 125 mg/dl is diagnostic of prediabetes. In a patient with classic symptoms of hyperglycemia or hyperglycemic crisis, a random glucose >/= 200 mg/dl is diagnostic for diabetes. In the absence of unequivocal hyperglycemia, results should be confirmed by repeat testing. The classification and Diagnosis of Diabetes Diabetes Care 202; 46: S19-S40. Current interpretive data was last revised 2022. Calcium 9.5 8.5 - 10.3 mg/dL [facility] Blood 11/02/2024 6:57 AM CDT 11/02/2024 7:14 AM CDT Maria E Cristina Ayala NP LAB BLOOD ORDERABLES Final Result [facility] [address] [place] [address] * eGFR (11/01/2024 5:58 AM CDT) eGFR >90 >=60 mL/min/1. 73 m2 Comment: Interpretive Data Reference Interval Normal >/= 90 mL/min/1.73m2 Mildly decreased* 60 - 89 mL/min/1.73m2 Mildly to moderately decreased 45 - 59 mL/min/1.73m2 Moderately to severely decreased 30 - 44 mL/min/1.73m2 Severely decreased 15 - 29 mL/min/1.73m2 Kidney Failure < 15 mL/min/1.73m2 *Relative to young adult level Estimated glomerular filtration rate is determined by the 2020 CKD-EPI equation recommended by the National Kidney Foundation (A Unifying Approach to GFR Estimation: Recommendations of the NKF-ASK Task Force on Reassessing the Inclusion of Race in Diagnosing Kidney Disease, JASN 2020). The CKD-EPI equation should not be used for patients with unstable renal function and has not been validated in children and those over 70. Current interpretive data was last reviewed 2021. Blood 11/01/2024 5:58 AM CDT 11/01/2024 6:12 AM CDT Maria E Cristina Ayala NP LAB BLOOD ORDERABLES Final Result Performing Organization Address City/[facility]/ZIP Co de Phone Number [facility] STA[facility] [address] [place] [address] * Differential, auto (11/01/2024 5:58 AM CDT) Neutrophil abs 1.8 1.5 - 6.5 K/cumm Imm gran abs 0.0 0.0 - 0.1 K/cumm [facility] Lymphocyte abs 2.2 0.8 - 3.3 K/cumm [facility] Monocyte abs 0.8 0.2 - 0.8 K/cumm [facility] Eosinophil abs 0.2 0.0 - 0.5 K/cumm [facility] Basophil abs 0.1 0.0 - 0.1 K/cumm [facility] Neutrophil pct 35.7 % [facility] Comment: Interpretive Data Percent cell count reference ranges are not reported, since discordance with absolute values may lead to misinterpretation of CBC data. Current Interpretive Data was last revised on 2017. Imm gran pct 0.2 % [facility] Comment: Interpretive Data Percent cell count reference ranges are not reported, since discordance with absolute values may lead to misinterpretation of CBC data. Current Interpretive Data was last revised on 2017. Lymphocyte pct 42.9 % [facility] Comment: Interpretive Data Percent cell count reference ranges are not reported, since discordance with absolute values may lead to misinterpretation of CBC data. Current Interpretive Data was last revised on 2017. Monocyte pct 15.8 % [facility] Comment: Interpretive Data Percent cell count reference ranges are not reported, since discordance with absolute values may lead to misinterpretation of CBC data. Current Interpretive Data was last revised on 2017. Eosinophil pct 3.4 % [facility] Comment: Interpretive Data Percent cell count reference ranges are not reported, since discordance with absolute values may lead to misinterpretation of CBC data. Current Interpretive Data was last revised on 2017. Basophil pct 2.0 % [facility] Comment: Interpretive Data Percent cell count reference ranges are not reported, since discordance with absolute values may lead to misinterpretation of CBC data. Current Interpretive Data was last revised on 2017. Blood 11/01/2024 5:58 AM CDT 11/01/2024 6:13 AM CDT Maria E Nyakio [place] [employer] LAB BLOOD ORDERABLES Final Result Performing Organization Address [facility] Co de Phone Number [facility] STA[facility] [address] [place] [address] * (ABNORMAL) CBC with auto differential (11/01/2024 5:58 AM CDT) WBC 5.0 3.8 - 9.9 K/cumm Hgb 13.3 13.0 - 17.5 g/dL [facility] Hct 41.5 38.9 - 50.3 % [facility] Plt 203 150 - 400 K/cumm [facility] MPV 10.6 9.1 - 12.3 fL [facility] RBC 4.05(L) 4.30 - 5.80 M/cumm [facility] MCV 102.5(H) 81.3 - 96.4 fL [facility] MCH 32.8 27.1 - 33.3 pg [facility] MCHC 32.0(L) 32.3 - 35.7 g/dL [facility] RDW CV 13.0 11.1 - 14.9 % [facility] RDW SD 49.5(H) 35.7 - 48.1 fL [facility] NRBC abs 0.00 0.00 - 0.01 K/cumm [facility] Blood 11/01/2024 5:58 AM CDT 11/01/2024 6:13 AM CDT Maria E Ayala NP LAB BLOOD ORDERABLES Final Result Performing Organization Address [facility] Co de Phone Number [facility] STA[facility] [address] [place] [address] * Magnesium (11/01/2024 5:58 AM CDT) Pathologist [facility] Magnesium 1.7 1.4 - 2.5 mg/dL Blood 11/01/2024 5:58 AM CDT 11/01/2024 6:12 AM CDT John Barone MD LAB BLOOD ORDERABLES Final Resu lt Performing Organization Address City/[facility]/ZIP Co de Phone Number [facility] [address] [place] [address] * (ABNORMAL) Basic metabolic panel (11/01/2024 5:58 AM CDT) Sodium 140 135 - 145 mmol/L Potassium, pl 3.7 3.3 - 4.9 mmol/L [facility] Chloride 106 97 - 110 mmol/L [facility] CO2 20(L) 22 - 32 mmol/L [facility] Anion gap 14 2 - 15 mmol/L [facility] BUN 6 6 - 25 mg/dL [facility] Creatinine 0.63(L) 0.80 - 1.30 mg/dL [facility] Glucose 98 70 - 199 mg/dL [facility] Comment: Interpretive Data Fasting glucose >/= 126 mg/dl is diagnostic for diabetes. Fasting is defined as no caloric intake for at least 8 hours. Fasting glucose between 100 mg/dl to 125 mg/dl is diagnostic of prediabetes. In a patient with classic symptoms of hyperglycemia or hyperglycemic crisis, a random glucose >/= 200 mg/dl is diagnostic for diabetes. In the absence of unequivocal hyperglycemia, results should be confirmed by repeat testing. The classification and Diagnosis of Diabetes Diabetes Care 2021; 46: S19-S40. Current interpretive data was last revised 2022. Calcium 9.1 8.5 - 10.3 mg/dL [facility] Blood 11/01/2024 5:58 AM CDT 11/01/2024 6:12 AM CDT Maria E Ayala NP LAB BLOOD ORDERABLES Final Result [facility] [address] [place] [address] * eGFR (10/31/2024 4:16 AM CDT) Pathologist [facility] eGFR >90 >=60 mL/min/1. 73 m2 Comment: Interpretive Data Reference Interval Normal >/= 90 mL/min/1.73m2 Mildly decreased* 60 - 89 mL/min/1.73m2 Mildly to moderately decreased 45 - 59 mL/min/1.73m2 Moderately to severely decreased 30 - 44 mL/min/1.73m2 Severely decreased 15 - 29 mL/min/1.73m2 Kidney Failure < 15 mL/min/1.73m2 *Relative to young adult level Estimated glomerular filtration rate is determined by the 2020 CKD-EPI equation recommended by the National Kidney Foundation (A Unifying Approach to GFR Estimation: Recommendations of the NKF-ASK Task Force on Reassessing the Inclusion of Race in Diagnosing Kidney Disease, JASN 202). The CKD-EPI equation should not be used for patients with unstable renal function and has not been validated in children and those over 70. Current interpretive data was last reviewed 2021. Blood 10/31/2024 4:16 AM CDT 10/31/2024 4:32 AM CDT Maria E Ayala NP LAB BLOOD ORDERABLES Final Result [facility] [address] [place] [address] * (ABNORMAL) Differential, auto (10/31/2024 4:16 AM CDT) Neutrophil abs 2.3 1.5 - 6.5 K/cumm Imm gran abs 0.0 0.0 - 0.1 K/cumm [facility] Lymphocyte abs 2.7 0.8 - 3.3 K/cumm [facility] Monocyte abs 0.9(H) 0.2 - 0.8 K/cumm [facility] Eosinophil abs 0.1 0.0 - 0.5 K/cumm [facility] Basophil abs 0.1 0.0 - 0.1 K/cumm [facility] Neutrophil pct 37.7 % [facility] Comment: Interpretive Data Percent cell count reference ranges are not reported, since discordance with absolute values may lead to misinterpretation of CBC data. Current Interpretive Data was last revised on 2017. Imm gran pct 0.5 % [facility] Comment: Interpretive Data Percent cell count reference ranges are not reported, since discordance with absolute values may lead to misinterpretation of CBC data. Current Interpretive Data was last revised on 2017. Lymphocyte pct 44.2 % [facility] Comment: Interpretive Data Percent cell count reference ranges are not reported, since discordance with absolute values may lead to misinterpretation of CBC data. Current Interpretive Data was last revised on 2017. Monocyte pct 14.0 % [facility] Comment: Interpretive Data Percent cell count reference ranges are not reported, since discordance with absolute values may lead to misinterpretation of CBC data. Current Interpretive Data was last revised on 2017. Eosinophil pct 2.3 % [facility] Comment: Interpretive Data Percent cell count reference ranges are not reported, since discordance with absolute values may lead to misinterpretation of CBC data. Current Interpretive Data was last revised on 2017. Basophil pct 1.3 % [facility] Comment: Interpretive Data Percent cell count reference ranges are not reported, since discordance with absolute values may lead to misinterpretation of CBC data. Current Interpretive Data was last revised on 2017. Blood 10/31/2024 4:16 AM CDT 10/31/2024 4:32 AM CDT Maria E Ayala NP LAB BLOOD ORDERABLES Final Result [facility] [address] [place] [address] * (ABNORMAL) CBC with auto differential (10/31/2024 4:16 AM CDT) WBC 6.1 3.8 - 9.9 K/cumm Hgb 12.1(L) 13.0 - 17.5 g/dL [facility] Hct 36.8(L) 38.9 - 50.3 % [facility] Plt 209 150 - 400 K/cumm [facility] MPV 10.4 9.1 - 12.3 fL [facility] RBC 3.66(L) 4.30 - 5.80 M/cumm [facility] MCV 100.5(H) 81.3 - 96.4 fL [facility] MCH 33.1 27.1 - 33.3 pg [facility] MCHC 32.9 32.3 - 35.7 g/dL [facility] RDW CV 13.0 11.1 - 14.9 % [facility] RDW SD 48.3(H) 35.7 - 48.1 fL [facility] NRBC abs 0.00 0.00 - 0.01 K/cumm [facility] Blood 10/31/2024 4:16 AM CDT 10/31/2024 4:32 AM CDT Maria E Ayala NP LAB BLOOD ORDERABLES Final Result [facility] [address] [place] [address] * (ABNORMAL) Basic metabolic panel (10/31/2024 4:16 AM CDT) Sodium 143 135 - 145 mmol/L Potassium, pl 3.1(L) 3.3 - 4.9 mmol/L [facility] Chloride 105 97 - 110 mmol/L [facility] CO2 26 22 - 32 mmol/L [facility] Anion gap 12 2 - 15 mmol/L [facility] BUN 13 6 - 25 mg/dL [facility] Creatinine 0.57(L) 0.80 - 1.30 mg/dL [facility] Glucose 85 70 - 199 mg/dL [facility] Comment: Interpretive Data Fasting glucose >/= 126 mg/dl is diagnostic for diabetes. Fasting is defined as no caloric intake for at least 8 hours. Fasting glucose between 100 mg/dl to 125 mg/dl is diagnostic of prediabetes. In a patient with classic symptoms of hyperglycemia or hyperglycemic crisis, a random glucose >/= 200 mg/dl is diagnostic for diabetes. In the absence of unequivocal hyperglycemia, results should be confirmed by repeat testing. The classification and Diagnosis of Diabetes Diabetes Care 202; 46: S19-S40. Current interpretive data was last revised 2022. Calcium 8.2(L) 8.5 - 10.3 mg/dL [facility] Blood 10/31/2024 4:16 AM CDT 10/31/2024 4:32 AM CDT Maria E Ayala NP LAB BLOOD ORDERABLES Final Result Performing Organization Address City/[facility]/ZIP Co de Phone Number [facility] [address] Department of Laboratories [place], [place] [id number] * Troponin T high-sensitivity 2-hour (10/30/2024 9:51 AM CDT) Trop T hs 14 <=22 ng/L Comment: Interpretive Data For further hscTnT resources including the diagnostic algorithm and an aid in interpretation, copy and paste this link: https://nrl.testcatalog.org/show/hsTrop Current Interpretive Data last revised 2020. Trop T hs delta 6 ng/L [facility] Trop T hs interp Equivocal [facility] Blood 10/30/2024 9:51 AM CDT 10/30/2024 9:59 AM CDT Jennifer Pisano MD LAB BLOOD ORDERABLES Fi nal Result Performing Organization Address [facility]/ZIP Co de Phone Number [facility] [address] Department [place] [address] * Urinalysis reflex to microscopic and culture Urine (10/30/2024 9:51 AM CDT) Color, ur Yellow Yellow Clarity, ur Clear Clear [facility] Specific gravity, ur 1.024 1.003 - 1.030 [facility] pH, urine 5.5 [facility] Comment: Interpretive Data U rine pH is affected by diet, medications, systemic acid-base disturbances, and renal tubular function. pH may affect urinary stone formation. For example, urine pH below 6.0 may help reduce the tendency for calcium phosphate stones and pH greater than 6.0 may reduce the tendency for uric acid stone formation. Source: [employer] Current Interpretive Data was last revised on 2017 Protein, ur ql Trace Negative [facility] Glucose, ur ql Negative Negative [facility] Ketones, ur Negative Negative [facility] Bilirubin, ur Negative Negative [facility] Blood, ur Negative Negative [facility] Urobilinogen, ur <2.0 <2.0 mg/dL [facility] Nitrite, ur Negative Negative [facility] Leukocyte esterase, ur Negative Negative [facility] UA reflex comment Reflex conditions for microscopic UA and culture not met. [facility] Urine 10/30/2024 9:51 AM CDT 10/30/2024 9:56 AM CDT Jennifer Pisano MD LAB MICROBIOLOGY - [facility] ORDERABLES Final Result [facility] [address] [place] [address] * (ABNORMAL) Drugs of Abuse Screen, Urine without Confirmation (10/30/2024 9:51 AM CDT) Amphetamine, ur Not Detected CutOff 500ng/mL Comment: Interpretive Data - Amphetamines: Samples containing greater than 500 ng/mL d-methamphetamine or other cross-reacting amphetamine compounds are reported as positive. Amphetamine immunoassays are subject to significant false positive rates due to cross-reactivity of non-amphetamine drugs. Confirmatory testing required for definitive results. Current Interpretive Data was last reviewed 2023. Barbiturates, ur Not Detected CutOff 200ng/mL [facility] Comment: Interpretive Data - Barbiturates: Samples containing greater than 200 ng/mL secobarbital or other cross-reacting barbiturate compounds are reported as positive. False positive and false negative results are possible. Confirmatory testing required for definitive results. Current Interpretive Data was last reviewed 2023. Benzodiazepines, ur Screen Positive, presumptive (A) CutOff 100ng/mL [facility] Comment: Interpretive Data - Benzodiazepines: Samples containing greater than 100 ng/mL nordiazepam or other cross-reacting compounds are reported as positive. False positive and false negative results are possible. Confirmatory testing required for definitive results. Current Interpretive Data was last reviewed 2023. Cannabinoids, ur Not Detected CutOff 50 ng/mL [facility] Comment: Interpretive Data - Cannabinoids: Samples containing greater than 50 ng/mL delta-9 THC -COOH or other cross- reacting compounds are reported as positive. False positive and false negative results are possible. Confirmatory testing required for definitive results. Current Interpretive Data was last reviewed 2023. Cocaine, ur Not Detected CutOff 150ng/mL [facility] Comment: Interpretive Data - Cocaine: Samples containing greater than 150 ng/mL benzoylecgonine or other cross- reacting compounds are reported as positive. False positive and false negative results are possible. Confirmatory testing required for definitive results. Current Interpretive Data was last reviewed 2023. Fentanyl, Ur Not Detected CutOff 5 ng/mL [facility] Comment: Interpretive Data - Fentanyl: Samples containing greater than 5 ng/mL norfentanyl, fentanyl, or other cross-reacting fentanyl compounds are reported as positive. False positive and false negative results are possible. Confirmatory testing required for definitive results. Current Interpretive Data was last reviewed 2023. Methadone, ur Not Detected CutOff 300ng/mL [facility] Comment: Interpretive Data - Methadone: Samples containing greater than 300 ng/mL d,l-methadone or other cross-reacting compounds are reported as positive. False positive and false negative results are possible. Confirmatory testing required for definitive results. Current Interpretive Data was last reviewed 2023. Opiates, ur Not Detected CutOff 300ng/mL [facility] Comment: Interpretive Data - Opiates: Samples containing greater than 300 ng/mL morphine or other cross-reacting compounds are reported as positive. False positive and false negative results are possible. Confirmatory testing required for definitive results. Current Interpretive Data was last reviewed 2023. Oxycodone, ur Not Detected CutOff 100ng/mL [facility] Comment: Interpretive Data - Oxycodone: Samples containing greater than 100 ng/mL oxycodone or other cross-reacting compounds are reported as positive. False positive and false negative results are possible. Confirmatory testing required for definitive results. Current Interpretive Data was last reviewed 2023. Phencyclidine, ur Not Detected CutOff 25 ng/mL [facility] Comment: Interpretive Data - Phencyclidine: Samples containing greater than 25 ng/mL phencyclidine or other cross-reacting compounds are reported as positive. False positive and false negative results are possible. Confirmatory testing required for definitive results. Current Interpretive Data was last reviewed 2023. Urine Creatinine 150 mg/dL [facility] Comment: Interpretive Data Urine Creatinine: < 10 mg/dL is extremely dilute = or > 10 but < 20 mg/dL is dilute = or > 20 mg/dL is normal Current Interpretive Data was last revised on 2017. Urine 10/30/2024 9:51 AM CDT 10/30/2024 9:56 AM CDT Narrative [facility] - 10/30/2024 10:37 AM CDT Drug of Abuse screening is performed by immunoassay for medical purposes only. This is not to be used for Pain Management purposes. Jennifer Pisano MD LAB URINE ORDERABLES Fi nal Result [facility] [address] [place] [address] * XR Chest 1 Vw Portable (10/30/2024 9:38 AM CDT) Anatomical Region Laterality Modality Body, Chest N/A Computed Radiogr aphy 10/30/2024 9:40 AM CDT Impressions 10/30/2024 9:40 AM CDT No active disease. Electronically signed by: Yumiko Smith M.D. Narrative 10/30/2024 9:40 AM CDT EXAMINATION: XR CHEST 1 VIEW HISTORY: The patient is a 54-year-old male who presents with shortness of breath. Comparison made with the previous study dated 10/10/2024. TECHNIQUE: Portable AP view of the chest. FINDINGS: Lungs clear. Cardiovascular structures unremarkable. Procedure Note Yumiko Smith MD - 10/30/2024 EXAMINATION: XR CHEST 1 VIEW HISTORY: The patient is a 54-year-old male who presents with shortness of breath. Comparison made with the previous study dated 10/10/2024. TECHNIQUE: Portable AP view of the chest. FINDINGS: Lungs clear. Cardiovascular structures unremarkable. IMPRESSION: No active disease. Electronically signed by: Yumiko Smith M.D. Jennifer Pisano MD IMG XR PROCEDURES Final Result * Troponin T high-sensitivity series (baseline, 2hr, 4hr, 6hr) (10/30/2024 7:53 AM CDT) Trop T hs 8 <=22 ng/L Comment: Interpretive Data For further hscTnT resources including the diagnostic algorithm and an aid in interpretation, copy and paste this link: https://nrl.testcatalog.org/show/hsTrop Current Interpretive Data last revised 2020. Blood 10/30/2024 7:53 AM CDT 10/30/2024 7:53 AM CDT Jennifer Pisano MD LAB BLOOD ORDERABLES Fi nal Result Performing Organization Address City/[facility]/ZIP Co de Phone Number [facility] [address] [place] [address] * eGFR (10/30/2024 7:53 AM CDT) eGFR >90 >=60 mL/min/1. 73 m2 Comment: Interpretive Data Reference Interval Normal >/= 90 mL/min/1.73m2 Mildly decreased* 60 - 89 mL/min/1.73m2 Mildly to moderately decreased 45 - 59 mL/min/1.73m2 Moderately to severely decreased 30 - 44 mL/min/1.73m2 Severely decreased 15 - 29 mL/min/1.73m2 Kidney Failure < 15 mL/min/1.73m2 *Relative to young adult level Estimated glomerular filtration rate is determined by the 2020 CKD-EPI equation recommended by the National Kidney Foundation (A Unifying Approach to GFR Estimation: Recommendations of the NKF-ASK Task Force on Reassessing the Inclusion of Race in Diagnosing Kidney Disease, JASN 2020). The CKD-EPI equation should not be used for patients with unstable renal function and has not been validated in children and those over 70. Current interpretive data was last reviewed 2021. Blood 10/30/2024 7:53 AM CDT 10/30/2024 7:53 AM CDT Jennifer Pisano MD LAB BLOOD ORDERABLES Fi nal Result [facility] [address] [place] [address] * Differential, auto (10/30/2024 7:53 AM CDT) Neutrophil abs 3.2 1.5 - 6.5 K/cumm Imm gran abs 0.1 0.0 - 0.1 K/cumm [facility] Lymphocyte abs 2.8 0.8 - 3.3 K/cumm [facility] Monocyte abs 0.8 0.2 - 0.8 K/cumm [facility] Eosinophil abs 0.1 0.0 - 0.5 K/cumm [facility] Basophil abs 0.1 0.0 - 0.1 K/cumm [facility] Neutrophil pct 45.0 % [facility] Comment: Interpretive Data Percent cell count reference ranges are not reported, since discordance with absolute values may lead to misinterpretation of CBC data. Current Interpretive Data was last revised on 2017. Imm gran pct 1.0 % [facility] Comment: Interpretive Data Percent cell count reference ranges are not reported, since discordance with absolute values may lead to misinterpretation of CBC data. Current Interpretive Data was last revised on 2017. Lymphocyte pct 39.8 % [facility] Comment: Interpretive Data Percent cell count reference ranges are not reported, since discordance with absolute values may lead to misinterpretation of CBC data. Current Interpretive Data was last revised on 2017. Monocyte pct 11.0 % [facility] Comment: Interpretive Data Percent cell count reference ranges are not reported, since discordance with absolute values may lead to misinterpretation of CBC data. Current Interpretive Data was last revised on 2017. Eosinophil pct 1.9 % [facility] Comment: Interpretive Data Percent cell count reference ranges are not reported, since discordance with absolute values may lead to misinterpretation of CBC data. Current Interpretive Data was last revised on 2017. Basophil pct 1.3 % [facility] Comment: Interpretive Data Percent cell count reference ranges are not reported, since discordance with absolute values may lead to misinterpretation of CBC data. Current Interpretive Data was last revised on 2017. Blood 10/30/2024 7:53 AM CDT 10/30/2024 7:53 AM CDT Jennifer Pisano MD LAB BLOOD ORDERABLES Fi nal Result Performing Organization Address [facility] Co de Phone Number [facility] [address] [place] [address] [place] [address] * (ABNORMAL) CBC with auto differential (10/30/2024 7:53 AM CDT) WBC 7.0 3.8 - 9.9 K/cumm Hgb 13.9 13.0 - 17.5 g/dL [facility] Hct 43.6 38.9 - 50.3 % [facility] Plt 279 150 - 400 K/cumm [facility] MPV 10.1 9.1 - 12.3 fL [facility] RBC 4.30 4.30 - 5.80 M/cumm [facility] MCV 101.4(H) 81.3 - 96.4 fL [facility] MCH 32.3 27.1 - 33.3 pg [facility] MCHC 31.9(L) 32.3 - 35.7 g/dL [facility] RDW CV 13.6 11.1 - 14.9 % [facility] RDW SD 50.8(H) 35.7 - 48.1 fL [facility] NRBC abs 0.00 0.00 - 0.01 K/cumm [facility] CH Blood Venous blood specimen / Unknown 10/30/2024 7:53 AM CDT 10/30/2024 7:53 AM CDT Jennifer Pisano MD LAB BLOOD ORDERABLES Fi nal Result Performing Organization Address City/[facility]/ZIP Co de Phone Number [facility] [address] [place] [address] [place] [address] * (ABNORMAL) Ethanol (10/30/2024 7:53 AM CDT) Ethanol 233(H) <=10 mg/dL Comment: Interpretive Data Legal limit of intoxication > or = 80 mg/dL Levels > or = 400 mg/dL are potentially TOXIC. Current interpretive data was last revised on 2018. Blood 10/30/2024 7:53 AM CDT 10/30/2024 7:53 AM CDT us Jennifer Pisano MD LAB BLOOD ORDERABLES Fi nal Result [facility] [address] [place] [address] * (ABNORMAL) Comprehensive metabolic panel (10/30/2024 7:53 AM CDT) Sodium 150(H) 135 - 145 mmol/L Potassium, pl 3.5 3.3 - 4.9 mmol/L [facility] Chloride 107 97 - 110 mmol/L [facility] CO2 30 22 - 32 mmol/L [facility] Anion gap 13 2 - 15 mmol/L [facility] BUN 13 6 - 25 mg/dL [facility] Creatinine 0.64(L) 0.80 - 1.30 mg/dL [facility] Glucose 100 70 - 199 mg/dL [facility] Comment: Interpretive Data Fasting glucose >/= 126 mg/dl is diagnostic for diabetes. Fasting is defined as no caloric intake for at least 8 hours. Fasting glucose between 100 mg/dl to 125 mg/dl is diagnostic of prediabetes. In a patient with classic symptoms of hyperglycemia or hyperglycemic crisis, a random glucose >/= 200 mg/dl is diagnostic for diabetes. In the absence of unequivocal hyperglycemia, results should be confirmed by repeat testing. The classification and Diagnosis of Diabetes Diabetes Care 2021; 46: S19-S40. Current interpretive data was last revised 2022. Calcium 9.3 8.5 - 10.3 mg/dL [facility] Bilirubin, total 0.2 0.1 - 1.2 mg/dL [facility] Protein, pl 7.0 6.5 - 8.5 g/dL [facility] Albumin 4.2 3.5 - 5.0 g/dL [facility] Alk phos 65 40 - 130 Units/L [facility] ALT 17 7 - 55 Units/L [facility] AST 19 10 - 50 Units/L [facility] Blood 10/30/2024 7:53 AM CDT 10/30/2024 7:53 AM CDT Jennifer Pisano MD LAB BLOOD ORDERABLES Fi nal Result [facility] [address] Department of Laboratories [place] [id number] * ECG 12 lead (10/30/2024 7:52 AM CDT) 10/30/2024 7:[address] [facility] - 10/30/2024 10:22 PM CDT Vent Rate: 108 bpm RR Interval: 553 msec GA Interval: 162 msec QRS Duration: 91 msec QT Interval: 323 msec QTC Interval: 386 msec P-R-T Connell: 49 - -28 - 39 degrees IMPRESSION: SINUS TACHYCARDIA Electronically Signed By: Mitch Schaefer MD, [facility] Jennifer Pisano MD ECG ORDERABLES Final R esult Performing Organization Address City/[facility]/ZIP Co de Phone Number [facility] [employer] [facility] * eGFR (10/25/2024 3:33 AM CDT) eGFR >90 >=60 mL/min/1. 73 m2 Comment: Interpretive Data Reference Interval Normal >/= 90 mL/min/1.73m2 Mildly decreased* 60 - 89 mL/min/1.73m2 Mildly to moderately decreased 45 - 59 mL/min/1.73m2 Moderately to severely decreased 30 - 44 mL/min/1.73m2 Severely decreased 15 - 29 mL/min/1.73m2 Kidney Failure < 15 mL/min/1.73m2 *Relative to young adult level Estimated glomerular filtration rate is determined by the 2020 CKD-EPI equation recommended by the National Kidney Foundation (A Unifying Approach to GFR Estimation: Recommendations of the NKF-ASK Task Force on Reassessing the Inclusion of Race in Diagnosing Kidney Disease, JASN 202). The CKD-EPI equation should not be used for patients with unstable renal function and has not been validated in children and those over 70. Current interpretive data was last reviewed 2021. Blood 10/25/2024 3:33 AM CDT 10/25/2024 3:37 AM CDT Chuy Cabral MD LAB BLOOD ORDERABLES Final Result Performing Organization Address City/[facility] Co de Phone Number [facility] [address] [facility] [address] [place] [address] * Magnesium (10/25/2024 3:33 AM CDT) Magnesium 1.6 1.4 - 2.5 mg/dL Blood 10/25/2024 3:33 AM CDT 10/25/2024 3:37 AM CDT Chuy Cabral MD LAB BLOOD ORDERABLES Final Result Performing Organization Address [facility] de Phone Number [facility] [address] [place] [address] * (ABNORMAL) Basic metabolic panel (10/25/2024 3:33 AM CDT) Sodium 141 135 - 145 mmol/L Potassium, pl 3.8 3.3 - 4.9 mmol/L [facility] Chloride 104 97 - 110 mmol/L [facility] CO2 26 22 - 32 mmol/L [facility] Anion gap 11 2 - 15 mmol/L [facility] BUN 6 6 - 25 mg/dL [facility] Creatinine 0.68(L) 0.80 - 1.30 mg/dL [facility] Glucose 87 70 - 199 mg/dL [facility] Comment: Interpretive Data Fasting glucose >/= 126 mg/dl is diagnostic for diabetes. Fasting is defined as no caloric intake for at least 8 hours. Fasting glucose between 100 mg/dl to 125 mg/dl is diagnostic of prediabetes. In a patient with classic symptoms of hyperglycemia or hyperglycemic crisis, a random glucose >/= 200 mg/dl is diagnostic for diabetes. In the absence of unequivocal hyperglycemia, results should be confirmed by repeat testing. The classification and Diagnosis of Diabetes Diabetes Care 202; 46: S19-S40. Current interpretive data was last revised 2022. Calcium 9.2 8.5 - 10.3 mg/dL [facility] Blood 10/25/2024 3:33 AM CDT 10/25/2024 3:37 AM CDT Chuy Cabral MD LAB BLOOD ORDERABLES Final Result [facility] [address] [place] [address] * eGFR (10/24/2024 5:45 AM CDT) eGFR >90 >=60 mL/min/1. 73 m2 Comment: Interpretive Data Reference Interval Normal >/= 90 mL/min/1.73m2 Mildly decreased* 60 - 89 mL/min/1.73m2 Mildly to moderately decreased 45 - 59 mL/min/1.73m2 Moderately to severely decreased 30 - 44 mL/min/1.73m2 Severely decreased 15 - 29 mL/min/1.73m2 Kidney Failure < 15 mL/min/1.73m2 *Relative to young adult level Estimated glomerular filtration rate is determined by the 2020 CKD-EPI equation recommended by the National Kidney Foundation (A Unifying Approach to GFR Estimation: Recommendations of the NKF-ASK Task Force on Reassessing the Inclusion of Race in Diagnosing Kidney Disease, JASN 202). The CKD-EPI equation should not be used for patients with unstable renal function and has not been validated in children and those over 70. Current interpretive data was last reviewed 2021. Blood 10/24/2024 5:45 AM CDT 10/24/2024 5:49 AM CDT Chuy Cabral MD LAB BLOOD ORDERABLES Final Result [facility] [address] [place] [address] [place] [address] * Magnesium (10/24/2024 5:45 AM CDT) Magnesium 1.7 1.4 - 2.5 mg/dL Blood 10/24/2024 5:45 AM CDT 10/24/2024 5:49 AM CDT Chuy Cabral MD LAB BLOOD ORDERABLES Final Result [facility] [address] [place] [address] * (ABNORMAL) Basic metabolic panel (10/24/2024 5:45 AM CDT) Sodium 143 135 - 145 mmol/L Potassium, pl 4.2 3.3 - 4.9 mmol/L [facility] Chloride 105 97 - 110 mmol/L [facility] CO2 28 22 - 32 mmol/L [facility] Anion gap 10 2 - 15 mmol/L [facility] BUN 4(L) 6 - 25 mg/dL [facility] Creatinine 0.79(L) 0.80 - 1.30 mg/dL [facility] Glucose 91 70 - 199 mg/dL [facility] Comment: Interpretive Data Fasting glucose >/= 126 mg/dl is diagnostic for diabetes. Fasting is defined as no caloric intake for at least 8 hours. Fasting glucose between 100 mg/dl to 125 mg/dl is diagnostic of prediabetes. In a patient with classic symptoms of hyperglycemia or hyperglycemic crisis, a random glucose >/= 200 mg/dl is diagnostic for diabetes. In the absence of unequivocal hyperglycemia, results should be confirmed by repeat testing. The classification and Diagnosis of Diabetes Diabetes Care 202; 46: S19-S40. Current interpretive data was last revised 2022. Calcium 9.1 8.5 - 10.3 mg/dL [facility] Blood 10/24/2024 5:45 AM CDT 10/24/2024 5:49 AM CDT Chuy Cabral MD LAB BLOOD ORDERABLES Final Result [facility] [address] [place] [address] * eGFR (10/23/2024 6:01 AM CDT) eGFR >90 >=60 mL/min/1. 73 m2 Comment: Interpretive Data Reference Interval Normal >/= 90 mL/min/1.73m2 Mildly decreased* 60 - 89 mL/min/1.73m2 Mildly to moderately decreased 45 - 59 mL/min/1.73m2 Moderately to severely decreased 30 - 44 mL/min/1.73m2 Severely decreased 15 - 29 mL/min/1.73m2 Kidney Failure < 15 mL/min/1.73m2 *Relative to young adult level Estimated glomerular filtration rate is determined by the 2020 CKD-EPI equation recommended by the National Kidney Foundation (A Unifying Approach to GFR Estimation: Recommendations of the NKF-ASK Task Force on Reassessing the Inclusion of Race in Diagnosing Kidney Disease, JASN 2020). The CKD-EPI equation should not be used for patients with unstable renal function and has not been validated in children and those over 70. Current interpretive data was last reviewed 2021. Blood 10/23/2024 6:01 AM CDT 10/23/2024 6:08 AM CDT Chuy Cabral MD LAB BLOOD ORDERABLES Final Result Performing Organization Address [facility] Co de Phone Number [place] [address] [address] [place] [address] * Magnesium (10/23/2024 6:01 AM CDT) Pathologist [facility] Magnesium 1.6 1.4 - 2.5 mg/dL Blood 10/23/2024 6:01 AM CDT 10/23/2024 6:08 AM CDT Chuy Cabral MD LAB BLOOD ORDERABLES Final Result Performing Organization Address [facility] Co de Phone Number [facility] [place] [address] [address] Department [place] [address] * (ABNORMAL) Basic metabolic panel (10/23/2024 6:01 AM CDT) Sodium 138 135 - 145 mmol/L Potassium, pl 3.0(L) 3.3 - 4.9 mmol/L [facility] Chloride 99 97 - 110 mmol/L [facility] CO2 29 22 - 32 mmol/L [facility] Anion gap 10 2 - 15 mmol/L [facility] BUN 5(L) 6 - 25 mg/dL [facility] Creatinine 0.67(L) 0.80 - 1.30 mg/dL [facility] Glucose 106 70 - 199 mg/dL [facility] Comment: Interpretive Data Fasting glucose >/= 126 mg/dl is diagnostic for diabetes. Fasting is defined as no caloric intake for at least 8 hours. Fasting glucose between 100 mg/dl to 125 mg/dl is diagnostic of prediabetes. In a patient with classic symptoms of hyperglycemia or hyperglycemic crisis, a random glucose >/= 200 mg/dl is diagnostic for diabetes. In the absence of unequivocal hyperglycemia, results should be confirmed by repeat testing. The classification and Diagnosis of Diabetes Diabetes Care 2021; 46: S19-S40. Current interpretive data was last revised 2022. Calcium 8.9 8.5 - 10.3 mg/dL [facility] Blood 10/23/2024 6:01 AM CDT 10/23/2024 6:08 AM CDT Chuy Cabral MD LAB BLOOD ORDERABLES Final Result [facility] [address] [facility] [place] [address] * GA CRITICAL CARE ILL/INJURED PATIENT INIT 30-74 MIN (10/22/2024 1:22 AM CDT) Narrative Grayson Donnelly MD - 10/22/2024 1:22 AM CDT Grayson Donnelly MD 10/22/2024 1:27 AM Critical Care Performed by: Grayson Donnelly MD Authorized by: Grayson Donnelly MD Critical care provider statement: As reflected in the history, physical exam, orders, notes, and/or MDM, I was personally present while the patient was critically ill and provided critical care services for 45 minutes, excluding time involved in separately billable procedures. Critical care was necessary to treat or prevent imminent or life-threatening deterioration of the following condition(s): encephalopathy Trauma, alcohol withdrawal Critical care was time spent by me providing the following: continuous telemetry, continuous pulse oximetry and resuscitation with fluids IV Ativan, alcohol withdrawal protocol I provided emergent necessary critical care medicine services to this patient. I ordered and reviewed test results and/or imaging studies. I spent time discussing the management of this critically ill patient with consultants and the medical staff. I spent time discussing the management and therapeutic options for this critically ill patient with the patient themselves or with the appropriate designated surrogate decision-maker. I spent time documenting in the medical record. I admitted this patient to a continuous cardiac monitored bed. us Grayson Donnelly MD IN CLINIC/BEDSIDE ORDERA BLES Final Result * Urinalysis reflex to microscopic and culture Urine (10/21/2024 9:32 PM CDT) Color, ur Yellow Yellow Clarity, ur Clear Clear [facility] Specific gravity, ur 1.013 1.003 - 1.030 [facility] pH, urine 5.5 [facility] Comment: Interpretive Data U rine pH is affected by diet, medications, systemic acid-base disturbances, and renal tubular function. pH may affect urinary stone formation. For example, urine pH below 6.0 may help reduce the tendency for calcium phosphate stones and pH greater than 6.0 may reduce the tendency for uric acid stone formation. Source: [employer] Current Interpretive Data was last revised on 2017 Protein, ur ql Trace Negative [facility] Glucose, ur ql Negative Negative [facility] Ketones, ur Negative Negative [facility] Bilirubin, ur Negative Negative [facility] Blood, ur Negative Negative [facility] Urobilinogen, ur <2.0 <2.0 mg/dL [facility] Nitrite, ur Negative Negative [facility] Leukocyte esterase, ur Negative Negative [facility] UA reflex comment Reflex conditions for microscopic UA and culture not met. [facility] Urine 10/21/2024 9:32 PM CDT 10/21/2024 9:35 PM CDT us Grayson Donnelly MD LAB MICROBIOLOGY - GENER AL ORDERABLES Final Result [facility] [address] [facility] [place] [address] * (ABNORMAL) Drugs of Abuse Screen, Urine without Confirmation (10/21/2024 9:32 PM CDT) Amphetamine, ur Not Detected CutOff 500ng/mL Comment: Interpretive Data - Amphetamines: Samples containing greater than 500 ng/mL d-methamphetamine or other cross-reacting amphetamine compounds are reported as positive. Amphetamine immunoassays are subject to significant false positive rates due to cross-reactivity of non-amphetamine drugs. Confirmatory testing required for definitive results. Current Interpretive Data was last reviewed 2023. Barbiturates, ur Not Detected CutOff 200ng/mL [facility] Comment: Interpretive Data - Barbiturates: Samples containing greater than 200 ng/mL secobarbital or other cross-reacting barbiturate compounds are reported as positive. False positive and false negative results are possible. Confirmatory testing required for definitive results. Current Interpretive Data was last reviewed 2023. Benzodiazepines, ur Screen Positive, presumptive (A) CutOff 100ng/mL [facility] Comment: Interpretive Data - Benzodiazepines: Samples containing greater than 100 ng/mL nordiazepam or other cross-reacting compounds are reported as positive. False positive and false negative results are possible. Confirmatory testing required for definitive results. Current Interpretive Data was last reviewed 2023. Cannabinoids, ur Not Detected CutOff 50 ng/mL [facility] Comment: Interpretive Data - Cannabinoids: Samples containing greater than 50 ng/mL delta-9 THC -COOH or other cross- reacting compounds are reported as positive. False positive and false negative results are possible. Confirmatory testing required for definitive results. Current Interpretive Data was last reviewed 2023. Cocaine, ur Not Detected CutOff 150ng/mL [facility] Comment: Interpretive Data - Cocaine: Samples containing greater than 150 ng/mL benzoylecgonine or other cross- reacting compounds are reported as positive. False positive and false negative results are possible. Confirmatory testing required for definitive results. Current Interpretive Data was last reviewed 2023. Fentanyl, Ur Not Detected CutOff 5 ng/mL [facility] Comment: Interpretive Data - Fentanyl: Samples containing greater than 5 ng/mL norfentanyl, fentanyl, or other cross-reacting fentanyl compounds are reported as positive. False positive and false negative results are possible. Confirmatory testing required for definitive results. Current Interpretive Data was last reviewed 2023. Methadone, ur Not Detected CutOff 300ng/mL [facility] Comment: Interpretive Data - Methadone: Samples containing greater than 300 ng/mL d,l-methadone or other cross-reacting compounds are reported as positive. False positive and false negative results are possible. Confirmatory testing required for definitive results. Current Interpretive Data was last reviewed 2023. Opiates, ur Not Detected CutOff 300ng/mL [facility] Comment: Interpretive Data - Opiates: Samples containing greater than 300 ng/mL morphine or other cross-reacting compounds are reported as positive. False positive and false negative results are possible. Confirmatory testing required for definitive results. Current Interpretive Data was last reviewed 2023. Oxycodone, ur Not Detected CutOff 100ng/mL [facility] Comment: Interpretive Data - Oxycodone: Samples containing greater than 100 ng/mL oxycodone or other cross-reacting compounds are reported as positive. False positive and false negative results are possible. Confirmatory testing required for definitive results. Current Interpretive Data was last reviewed 2023. Phencyclidine, ur Not Detected CutOff 25 ng/mL [facility] Comment: Interpretive Data - Phencyclidine: Samples containing greater than 25 ng/mL phencyclidine or other cross-reacting compounds are reported as positive. False positive and false negative results are possible. Confirmatory testing required for definitive results. Current Interpretive Data was last reviewed 2023. Urine Creatinine 117 mg/dL [facility] Comment: Interpretive Data Urine Creatinine: < 10 mg/dL is extremely dilute = or > 10 but < 20 mg/dL is dilute = or > 20 mg/dL is normal Current Interpretive Data was last revised on 2017. Urine 10/21/2024 9:32 PM CDT 10/21/2024 9:36 PM CDT Narrative [facility] - 10/21/2024 10:09 PM CDT Drug of Abuse screening is performed by immunoassay for medical purposes only. This is not to be used for Pain Management purposes. us Grayson Donnelly MD LAB URINE ORDERABLES Fin al Result [facility] [address] [place] [address] * CT Head Cervical Face WO Contrast (10/21/2024 8:26 PM CDT) Anatomical Region Laterality Modality Head and Neck N/A Computed Tomogra phy 10/21/2024 8:17 PM CDT Impressions 10/22/2024 7:33 AM CDT No acute intracranial change. Mild chronic sinus changes No acute cervical change. Stat report by [facility] Electronically signed by: Kelton Recio M.D. Narrative 10/22/2024 7:33 AM CDT EXAMINATION: Noncontrast head CT CT of the maxillofacial bones, orbits, and paranasal sinuses without contrast CT of the cervical spine without contrast HISTORY: Trauma. TECHNIQUE: Noncontrast CT of the brain was performed with images acquired from skull base to vertex. Computed tomography of the maxillofacial bones, orbits, and paranasal sinuses was performed without contrast according to standard protocol. Computed tomography of the cervical spine was performed without contrast according to standard protocol. COMPARISON: None available. HEAD AND FACIAL BONES FINDINGS: Brain: There is no evidence of intracranial hemorrhage. Unremarkable white matter. No mass effect. Cerebral ventricles: No ventriculomegaly. Paranasal sinuses: No air-fluid levels. Postsurgical changes related to bilateral maxillary antrostomies. Mucous retention cyst within the left maxillary sinus. Orbital cavities: Orbits are normal. Globes are unremarkable. CT CERVICAL SPINE FINDINGS: Bones: No acute fracture. Normal alignment. There are xetu-tz-hyktxydt endplate and uncovertebral degenerative changes seen at multiple levels. No significant disc bulge or herniation. No severe spinal canal stenosis. Lungs: Lung apices are normal. Soft tissues: Unremarkable. Procedure Note Kelton Recio MD - 10/22/2024 EXAMINATION: Noncontrast head CT CT of the maxillofacial bones, orbits, and paranasal sinuses without contrast CT of the cervical spine without contrast HISTORY: Trauma. TECHNIQUE: Noncontrast CT of the brain was performed with images acquired from skull base to vertex. Computed tomography of the maxillofacial bones, orbits, and paranasal sinuses was performed without contrast according to standard protocol. Computed tomography of the cervical spine was performed without contrast according to standard protocol. COMPARISON: None available. HEAD AND FACIAL BONES FINDINGS: Brain: There is no evidence of intracranial hemorrhage. Unremarkable white matter. No mass effect. Cerebral ventricles: No ventriculomegaly. Paranasal sinuses: No air-fluid levels. Postsurgical changes related to bilateral maxillary antrostomies. Mucous retention cyst within the left maxillary sinus. Orbital cavities: Orbits are normal. Globes are unremarkable. CT CERVICAL SPINE FINDINGS: Bones: No acute fracture. Normal alignment. There are npex-vj-nqonyrau endplate and uncovertebral degenerative changes seen at multiple levels. No significant disc bulge or herniation. No severe spinal canal stenosis. Lungs: Lung apices are normal. Soft tissues: Unremarkable. IMPRESSION: No acute intracranial change. Mild chronic sinus changes No acute cervical change. Stat report by [facility] Electronically signed by: Kelton Recio M.D. Grayson Donnelly MD IMG CT PROCEDURES Final Result * eGFR (10/21/2024 8:02 PM CDT) eGFR >90 >=60 mL/min/1. 73 m2 Comment: Interpretive Data Reference Interval Normal >/= 90 mL/min/1.73m2 Mildly decreased* 60 - 89 mL/min/1.73m2 Mildly to moderately decreased 45 - 59 mL/min/1.73m2 Moderately to severely decreased 30 - 44 mL/min/1.73m2 Severely decreased 15 - 29 mL/min/1.73m2 Kidney Failure < 15 mL/min/1.73m2 *Relative to young adult level Estimated glomerular filtration rate is determined by the 2020 CKD-EPI equation recommended by the National Kidney Foundation (A Unifying Approach to GFR Estimation: Recommendations of the NKF-ASK Task Force on Reassessing the Inclusion of Race in Diagnosing Kidney Disease, JASN 2020). The CKD-EPI equation should not be used for patients with unstable renal function and has not been validated in children and those over 70. Current interpretive data was last reviewed 2021. Blood 10/21/2024 8:02 PM CDT 10/21/2024 8:02 PM CDT us Grayson Donnelly MD LAB BLOOD ORDERABLES Fin al Result [facility] [address] [place] [address] * (ABNORMAL) Differential, auto (10/21/2024 8:02 PM CDT) Neutrophil abs 4.2 1.5 - 6.5 K/cumm Imm gran abs 0.0 0.0 - 0.1 K/cumm [facility] Lymphocyte abs 3.0 0.8 - 3.3 K/cumm [facility] Monocyte abs 0.9(H) 0.2 - 0.8 K/cumm [facility] Eosinophil abs 0.0 0.0 - 0.5 K/cumm [facility] Basophil abs 0.1 0.0 - 0.1 K/cumm [facility] Neutrophil pct 51.2 % [facility] Comment: Interpretive Data Percent cell count reference ranges are not reported, since discordance with absolute values may lead to misinterpretation of CBC data. Current Interpretive Data was last revised on 2017. Imm gran pct 0.4 % [facility] Comment: Interpretive Data Percent cell count reference ranges are not reported, since discordance with absolute values may lead to misinterpretation of CBC data. Current Interpretive Data was last revised on 2017. Lymphocyte pct 36.4 % [facility] Comment: Interpretive Data Percent cell count reference ranges are not reported, since discordance with absolute values may lead to misinterpretation of CBC data. Current Interpretive Data was last revised on 2017. Monocyte pct 10.6 % [facility] Comment: Interpretive Data Percent cell count reference ranges are not reported, since discordance with absolute values may lead to misinterpretation of CBC data. Current Interpretive Data was last revised on 2017. Eosinophil pct 0.5 % [facility] Comment: Interpretive Data Percent cell count reference ranges are not reported, since discordance with absolute values may lead to misinterpretation of CBC data. Current Interpretive Data was last revised on 2017. Basophil pct 0.9 % [facility] Comment: Interpretive Data Percent cell count reference ranges are not reported, since discordance with absolute values may lead to misinterpretation of CBC data. Current Interpretive Data was last revised on 2017. Blood 10/21/2024 8:02 PM CDT 10/21/2024 8:02 PM CDT Grayson Donnelly MD LAB BLOOD ORDERABLES Fin al Result Performing Organization Address City/[facility]/ZIP Co de Phone Number [facility] [address] [place] [address] * (ABNORMAL) CBC with auto differential (10/21/2024 8:02 PM CDT) WBC 8.1 3.8 - 9.9 K/cumm Hgb 16.3 13.0 - 17.5 g/dL [facility] Hct 49.6 38.9 - 50.3 % [facility] Plt 348 150 - 400 K/cumm [facility] MPV 9.5 9.1 - 12.3 fL [facility] RBC 5.01 4.30 - 5.80 M/cumm [facility] MCV 99.0(H) 81.3 - 96.4 fL [facility] MCH 32.5 27.1 - 33.3 pg [facility] MCHC 32.9 32.3 - 35.7 g/dL [facility] RDW CV 13.0 11.1 - 14.9 % [facility] RDW SD 47.5 35.7 - 48.1 fL [facility] NRBC abs 0.00 0.00 - 0.01 K/cumm [facility] Blood Venous blood specimen / Unknown 10/21/2024 8:02 PM CDT 10/21/2024 8:02 PM CDT Grayson Donnelly MD LAB BLOOD ORDERABLES Fin al Result Performing Organization Address City/[facility]/ZIP Co de Phone Number [facility] [address] [place] [address] * Ammonia (10/21/2024 8:02 PM CDT) Ammonia 30 <=50 mcmol/L Blood 10/21/2024 8:02 PM CDT 10/21/2024 8:02 PM CDT Grayson Donnelly MD LAB BLOOD ORDERABLES Fin al Result Performing Organization Address [facility] Co de Phone Number [facility] [address] [place] [address] * (ABNORMAL) Ethanol (10/21/2024 8:02 PM CDT) Ethanol 317(C) <=10 mg/dL Comment: Critical Result called to and read back by Franko Pack RN, DATE: 2024-10-21 20:30:08 BY: Cherri Castillo Interpretive Data Legal limit of intoxication > or = 80 mg/dL Levels > or = 400 mg/dL are potentially TOXIC. Current interpretive data was last revised on 2018. Blood 10/21/2024 8:02 PM CDT 10/21/2024 8:02 PM CDT Grayson Donnelly MD LAB BLOOD ORDERABLES Fin al Result Performing Organization Address [facility] de Phone Number [facility] [address] [place] [address] * (ABNORMAL) Comprehensive metabolic panel (10/21/2024 8:02 PM CDT) Sodium 149(H) 135 - 145 mmol/L Potassium, pl 3.5 3.3 - 4.9 mmol/L [facility] Chloride 104 97 - 110 mmol/L [facility] CO2 27 22 - 32 mmol/L [facility] Anion gap 18(H) 2 - 15 mmol/L [facility] BUN 7 6 - 25 mg/dL [facility] Creatinine 0.86 0.80 - 1.30 mg/dL [facility] Glucose 160 70 - 199 mg/dL [facility] Comment: Interpretive Data Fasting glucose >/= 126 mg/dl is diagnostic for diabetes. Fasting is defined as no caloric intake for at least 8 hours. Fasting glucose between 100 mg/dl to 125 mg/dl is diagnostic of prediabetes. In a patient with classic symptoms of hyperglycemia or hyperglycemic crisis, a random glucose >/= 200 mg/dl is diagnostic for diabetes. In the absence of unequivocal hyperglycemia, results should be confirmed by repeat testing. The classification and Diagnosis of Diabetes Diabetes Care 2021; 46: S19-S40. Current interpretive data was last revised 2022. Calcium 9.3 8.5 - 10.3 mg/dL [facility] Bilirubin, total 0.2 0.1 - 1.2 mg/dL [facility] Protein, pl 7.9 6.5 - 8.5 g/dL [facility] Albumin 4.6 3.5 - 5.0 g/dL [facility] Alk phos 89 40 - 130 Units/L [facility] ALT 32 7 - 55 Units/L [facility] AST 31 10 - 50 Units/L [facility] Blood 10/21/2024 8:02 PM CDT 10/21/2024 8:02 PM CDT Grayson Donnelly MD LAB BLOOD ORDERABLES Yash banegas Result Performing Organization Address City/[facility] Co de Phone Number [facility] [address] [facility] [place] [address] * ECG 12 lead (10/21/2024 7:21 PM CDT) 10/21/2024 7:21 PM CDT Narrative [facility] - 10/22/2024 11:27 PM CDT Vent Rate: 116 bpm RR Interval: 515 msec GA Interval: 164 msec QRS Duration: 95 msec QT Interval: 307 msec QTC Interval: 376 msec P-R-T Connell: 58 - -13 - 46 degrees IMPRESSION: SINUS TACHYCARDIA ABNORMAL RHYTHM ECG Electronically Signed By: Dr. Adriana Hernandez [facility] Chuy Cabral MD ECG ORDERABLES Lanette bartholomew Result Performing Organization Address City/[facility]/ZIP Co de Phone Number [facility] [employer] from Last [address] [address] CARE [facility] C[facility] * Guarantor: Bryce Sandhu Account Type Relation to Patient Date of Phone Billing Address Personal/Family Self 1970 [address] [address] Advance Directives For more information, please contact: [phone] * Full Code (Latest Code Status on File) Date Activated Date Inactivated Comments 12/17/2024 1:49 PM 12/20/2024 5:14 PM * Full Code Date Activated Date Inactivated Comments 10/30/2024 2:54 PM 11/03/2024 9:58 PM * Full Code Date Activated Date Inactivated Comments 10/22/2024 1:28 AM 10/25/2024 7:31 PM * Full Code Date Activated Date Inactivated Comments 10/10/2024 12:20 PM 10/13/2024 5:59 PM Care Teams [employer] Operations Intelligence Officer Relationship Specialty Start Date End Date Weston Mantilla DO PCP - General Family Medicine 09/03/23 Kimberli Collins DPM [address] [place] [id number] Consulting Physician Foot and Ankle Surg 09/14/23
--- OUTSIDE RECORDS SUMMARY | 2025-01-21 00:43 | XMS_ITS | Continuity of Care Document ---
Author Organization [facility] Address [address] [place] [address] Phone Care Team Providers Care Environmental Health Aide Name Role Phone Unavailable Unavailable Unavailable Procedures [...] Diagnoses Date Provider Providers Copied on Encounter [facility] , [address], [place], [place], [id number], tel:[phone] [facility] Encounter for dental exam and cleaning w abnormal findings No Information Referring Provider: Keyshawn Solis, [address], [place], [address]. tel:[phone] [facility] , [address], [place], [place], [id number], tel:[phone] [facility] Encounter for dental exam and cleaning w abnormal findings No Information Family History Family Member Type Diagnosis Age At Onset No Information Payers Payer name Insurance type Covered republican ID Authoradama ijeoma(s) G - ATSU [facility] 09 Social History Type Description Quantity Date [...]
--- OUTSIDE RECORDS SUMMARY | 2025-01-21 00:43 | XMS_ITS | Clinical Summary ---
Author Organization [facility] [address] Address [address] [place] [address] Care Team Providers Care Swager Operator Name Role Phone Jose RafaelJose orozcocinthya Harjeet Primary Care Provide r Kimberli Collins DPM Unavailable [phone] Allergies Active Allergy Reactions Criticality Noted Date [...] for up to 5 days 10 capsule Active Active Problems Problem Noted Date Diagnosed Date Alcohol withdrawal seizure without complication 10/30/2024 Fall, initial encounter 10/22/2024 Alcohol withdrawal syndrome with complication Acquired hammer toe of right foot 08/28/2023 Encounters Date Type Department Care Team Description 12/26/2024 [facility] Post Discharge Follow up phone call [address] [address] Alannah Mack 12/17/2024 8:47 AM CDT - 12/20/2024 1:09 PM CDT Hospital Encounter [address] [address] Jered Titus DO Novoselova, Victoria, MD Onaghise, Jude, MD Ogunremi, Olumide Omolulu, MD Burton, Jeffrey Ryan, DO Alcohol withdrawal syndrome with complication (HCC) (Primary Dx) Discharge Disposition: Discharge to home or self care 10/30/2024 7:40 AM CDT - 11/03/2024 5:58 PM CDT Hospital Encounter [address] [address] Jennifer Pisano MD Onaghise, Jude, MD Alcohol abuse (Primary Dx); Chest pain, unspecified type; Alcohol withdrawal syndrome without complication (HCC) Discharge Disposition: Discharge to home or self care 10/21/2024 7:16 PM CDT - 10/25/2024 12:30 PM CDT Hospital Encounter [address] [address] Grayson Donnelly MD Burton, Jeffrey Ryan, DO Perez Porcel, Jose Daniel, MD Fall, initial encounter (Primary Dx); Alcohol withdrawal syndrome, with delirium (HCC); Alcohol abuse Discharge Disposition: Discharge to home or self care from Last 3 Months Surgical History Surgery Date Site/Laterality Comments APPENDECTOMY SINUS SURGERY x 2 GANGLION CYST EXCISION Right wrist TONSILLECTOMY Medical History Medical History Date Comments Sleep apnea Hypertension GERD (gastroesophageal reflux disease) Seizures (HCC) had 1 seizure wh en detoxing from alcohol years ago Depression Anxiety ETOH abuse Social History Tobacco Use Types Packs/Day Years Used Date Smoking Tobacco: Former Cigarettes Smokeless Tobacco: Current Chew Tobacco Cessation:Ready to Q uit: No; Counseling Given: Yes Alcohol Use Standard Drinks/Week Comments Yes 0 (1 standard drink = 0.6 oz pur e alcohol) [employer] [place] Utilities Answer Date Recorded In the past 12 months has [employer], gas, oil, or water [employer] threatened to shut off services in your [...] often do you attend chur ch or yazidi services? Never 12/18/2024 Do you belong to any clubs o r organizations such as confucianist groups, unions, fraternal or athletic groups, or [...] any time in the past 12 m [facility], were you homeless or living in a care home (including now)? No 12/18/2024 Personal Safety Answer Date Recorded Have you ever been in or are you currently in a harmful physical or emotional relationship or is someone making you feel afraid or unsafe? Denies 12/17/2024 Sex and Gender Information Value Date Recorded Sex Assigned at Not on file Legal Sex Male 2:24 AM [employer] Gender Identity Not on file Sexual Orientation Not on file Obstetrics History Last Filed Vital Signs Vital Sign Reading [...] 12/18/2024 5:45 AM CDT Plan of Treatment Health Maintenance Due Date Last Done Comments Colon Cancer Screening-Colonoscopy 1970 Depression Screening 1970 Hepatitis C Screening 1970 Prostate Cancer Screening-PSA 1970 DTaP/Tdap/Td Vaccine (1 - Tdap) 1981 Regular Well Visit/Exam 18-64 1988 Zoster Vaccine (2 of 2) 02/01/2023 12/07/2022 Covid-19 Vaccine (2 - 2023-2 5 season) 2024 09/04/2021 Influenza Vaccine (Season Ended) 2025 09/11/2013 Hepatitis B Screening Completed 09/11/2013 , 07/17/2012 Pneumococcal vaccine <65 Aged Out 12/07/2022 No longer eligible based on patient's age to complete this topic Medical Devices Implanted Type Area Ordnance Officer Device Identifier Shelf Expiration Date Model / Serial / Lot [employer] Enio 1.1mm 152mm Trocar Point 2 End Style 1 Wire Fixation [id number] - [id number] - [id number] Implanted:Qty: 2 on 09/14/2023 by Kimberli Collins DPM at [facility] Explanted:03/13 (Quantity not on file) Right: Toes [employer] 03/09/2032 [id number] / [id number] / [id number] Description:K-WIRE TO 3RD AN D 4TH TOES, RIGHT FOOT. COVERED WITH MASSIEL BALLS Procedures Procedure Name Priority Date/Time Associated [...] CONTRAST ED 12/17/2024 1 1:36 AM CDT ND CRITICAL CARE ILL/INJURED PATIENT INIT 30-74 MIN [...] CDT MAGNESIUM Routine 10/23/2024 6:01 AM CDT ND CRITICAL CARE ILL/INJURED PATIENT INIT 30-74 MIN [...] ionized, whole blood (12/20/2024 8:34 AM CDT) Ca, ionized, bld 4.68 4.50 - 5.10 mg/dL Blood 12/20/2024 8:34 AM CDT 12/20/2024 8:47 AM CDT Meghana Chance MD LAB BLOOD ORDERABLES Lanette bartholomew Result ETHAN [address] [address] [place] [address] * POCT glucose (12/20/2024 7:02 AM CDT) Glucose, POC 87 70 - 199 mg/dL POC Performer [id number] ETHAN Blood 12/20/2024 7:02 AM CDT 12/20/2024 7:02 AM CDT Chito Miller MD LAB POCT ORDERABLES - DEVICE Final Result Performing Organization Address [facility]/ZIP Co de Phone Number [facility] [address] [address] [place] [address] * eGFR (12/20/2024 3:38 AM CDT) eGFR >90 >=60 mL/min/1. 73 [...] ORDERABLES Lanette l Result Performing Organization Address City/[facility]/ZIP Co de Phone Number [facility] [address] [address] Department [place] [address] * (ABNORMAL) CBC without differential (12/20/2024 3:38 AM CDT) WBC 5.82 3.80 - 9.90 K/cumm Hgb 12.9(L) 13.0 - 17.5 g/dL [facility] Hct 39.0 38.9 - 50.3 % [facility] Plt 172 150 - 400 K/cumm [facility] MPV 11.3 9.1 - 12.3 fL [facility] RBC 3.97(L) 4.30 - 5.80 M/cumm [facility] MCV 98.2(H) 81.3 - 96.4 fL [facility] MCH 32.5 27.1 - 33.3 pg [facility] MCHC 33.1 32.3 - 35.7 g/dL [facility] RDW CV 12.4 11.1 - 14.9 % [facility] RDW SD 44.8 35.7 - 48.1 fL [facility] NRBC abs 0.00 0.00 - 0.01 K/cumm [facility] Blood 12/20/2024 3:38 AM CDT 12/20/2024 5:27 AM CDT Meghana Chance MD LAB BLOOD ORDERABLES Lanette l Result Performing Organization Address City/[facility] Co de Phone Number [facility] [address] [facility] [employer] [place], [place] [id number] * Phosphorus (12/20/2024 3:38 AM CDT) Pathologist [facility] Phosphorus, pl 3.8 2.3 - 4.5 mg/dL Blood 12/20/2024 3:38 AM CDT 12/20/2024 5:25 AM CDT Meghana Chance MD LAB BLOOD ORDERABLES Lanette l Result Performing Organization Address City/[facility]/ZIP Co de Phone Number [facility] [address] [address] Department of [employer] [place], [place] [id number] * (ABNORMAL) Basic metabolic panel (12/20/2024 3:38 AM CDT) Sodium 137 135 - 145 mmol/L Potassium, pl 3.2(L) 3.3 - 4.9 mmol/L [facility] Chloride 99 97 - 110 mmol/L [facility] CO2 23 22 - 32 mmol/L [facility] Anion gap 15 2 - 15 mmol/L [facility] BUN 8 6 - 25 mg/dL [facility] Creatinine 0.72(L) 0.80 - 1.30 mg/dL [facility] Glucose 103 70 - 199 mg/dL [facility] Comment: Interpretive Data Fasting glucose >/= [...] 2022. Calcium 9.1 8.5 - 10.3 mg/dL [facility] Blood 12/20/2024 3:38 AM CDT 12/20/2024 5:25 AM CDT us Meghana Chance MD LAB BLOOD ORDERABLES Lanette l Result [facility] [address] [address] Department [place] [address] * POCT glucose (12/20/2024 12:51 AM CDT) Glucose, POC 109 70 - 199 mg/dL POC Performer [id number] [facility] Blood 12/20/2024 12:5 1 AM CDT 12/20/2024 12:51 AM CDT Chito Miller MD LAB POCT ORDERABLES - DEVICE Final Result [facility] [address] [facility] [place] [address] * POCT glucose (12/19/2024 9:18 PM CDT) Glucose, POC 96 70 - 199 mg/dL POC Performer [id number] [facility] Blood 12/19/2024 9:18 PM CDT 12/19/2024 9:18 PM CDT Chito Miller MD LAB POCT ORDERABLES - DEVICE Final Result Performing Organization Address [facility] Co de Phone Number [facility] [address] [facility] [place] [address] * POCT glucose (12/19/2024 4:44 PM CDT) Glucose, POC 89 70 - 199 mg/dL POC Performer [id number] [facility] Blood 12/19/2024 4:44 PM CDT 12/19/2024 4:44 PM CDT Chito Miller MD LAB POCT ORDERABLES - DEVICE Final Result Performing Organization Address [facility] Co de Phone Number [facility] [address] [facility] [place] [address] * POCT glucose (12/19/2024 11:44 AM CDT) Glucose, POC 96 70 - 199 mg/dL POC Performer [id number] [facility] Blood 12/19/2024 11:4 4 AM CDT 12/19/2024 11:44 AM CDT Chito Miller MD LAB POCT ORDERABLES - DEVICE Final Result Performing Organization Address City/[facility]/ZIP Co de Phone Number [facility] [address] [address] [employer] [place], [place] [id number] * (ABNORMAL) Calcium, ionized, whole blood (12/19/2024 6:02 AM CDT) Ca, ionized, bld 4.06(L) 4.50 - 5.10 mg/dL Blood 12/19/2024 6:02 AM CDT 12/19/2024 6:08 AM CDT Meghana Chance MD LAB BLOOD ORDERABLES Lanette l Result Performing Organization Address [facility] Co de Phone Number [facility] [address] [address] [place] [address] * eGFR (12/19/2024 6:02 AM CDT) eGFR >90 >=60 mL/min/1. 73 [...] ORDERABLES Lanette l Result Performing Organization Address City/[facility]/ZIP Co de Phone Number [facility] [address] [address] [place] [address] * (ABNORMAL) CBC without differential (12/19/2024 6:02 AM CDT) Pathologist [facility] WBC 4.56 3.80 - 9.90 K/cumm Hgb 12.9(L) 13.0 - 17.5 g/dL [facility] Hct 39.2 38.9 - 50.3 % [facility] Plt 125(L) 150 - 400 K/cumm [facility] MPV 11.1 9.1 - 12.3 fL [facility] RBC 3.96(L) 4.30 - 5.80 M/cumm [facility] MCV 99.0(H) 81.3 - 96.4 fL [facility] MCH 32.6 27.1 - 33.3 pg [facility] MCHC 32.9 32.3 - 35.7 g/dL [facility] CH RDW CV 12.5 11.1 - 14.9 % [facility] RDW SD 45.5 35.7 - 48.1 fL [facility] NRBC abs 0.00 0.00 - 0.01 K/cumm [facility] Blood 12/19/2024 6:02 AM CDT 12/19/2024 6:10 AM CDT Meghana Chance MD LAB BLOOD ORDERABLES Lanette l Result [facility] [address] [facility] [place] [address] * Phosphorus (12/19/2024 6:02 AM CDT) [facility] Phosphorus, pl 3.6 2.3 - 4.5 mg/dL Blood 12/19/2024 6:02 AM CDT 12/19/2024 6:10 AM CDT Meghana Chance MD LAB BLOOD ORDERABLES Lanette l Result [facility] [address] [address] [place] [address] * Magnesium (12/19/2024 6:02 AM CDT) Magnesium 1.8 1.4 - 2.5 mg/dL Blood 12/19/2024 6:02 AM CDT 12/19/2024 6:10 AM CDT Meghana Chance MD LAB BLOOD ORDERABLES Lanette l Result [facility] [address] [address] [place] [address] * (ABNORMAL) Basic metabolic panel (12/19/2024 6:02 AM CDT) Pathologist [facility] Sodium 135 135 - 145 mmol/L Potassium, pl 3.1(L) 3.3 - 4.9 mmol/L [facility] Chloride 101 97 - 110 mmol/L [facility] CO2 24 22 - 32 mmol/L [facility] Anion gap 10 2 - 15 mmol/L [facility] BUN 4(L) 6 - 25 mg/dL [facility] Creatinine 0.64(L) 0.80 - 1.30 mg/dL [facility] Glucose 101 70 - 199 mg/dL [facility] Comment: Interpretive Data Fasting glucose >/= [...] 2022. Calcium 9.1 8.5 - 10.3 mg/dL [facility] Blood 12/19/2024 6:02 AM CDT 12/19/2024 6:10 AM CDT Meghana Chance MD LAB BLOOD ORDERABLES Lanette l Result [facility] [address] [address] [place] [address] * POCT glucose (12/19/2024 5:01 AM CDT) Glucose, POC 117 70 - 199 mg/dL POC Performer [id number] [facility] Blood 12/19/2024 5:01 AM CDT 12/19/2024 5:01 AM CDT us John Barone MD LAB POCT ORDERABLES - DEVICE Fi nal Result Performing Organization Address [facility] Co de Phone Number [facility] [address] [address] [place] [address] * POCT glucose (12/19/2024 12:35 AM CDT) Glucose, POC 173 70 - 199 mg/dL POC Performer [id number] [facility] Blood 12/19/2024 12:3 5 AM CDT 12/19/2024 12:35 AM CDT us John Barone MD LAB POCT ORDERABLES - DEVICE Fi nal Result Performing Organization Address [facility] Co de Phone Number [facility] [address] [address] [place] [address] * POCT glucose (12/18/2024 9:42 PM CDT) Glucose, POC 107 70 - 199 mg/dL POC Performer [id number] [facility] Blood 12/18/2024 9:42 PM CDT 12/18/2024 9:42 PM CDT us John Barone MD LAB POCT ORDERABLES - DEVICE Fi nal Result Performing Organization Address [facility] Co de Phone Number [facility] [address] [facility] [place] [address] * Critical Care (12/18/2024 6:54 AM CDT) [...] with the patient's team and other medical/senior sales consultant staff. This time was in addition to and separate from care provided by other practitioners on this day of service. Meghana Chance MD IN CLINIC/BEDSIDE ORDERAB LES Final Result * (ABNORMAL) Calcium, ionized, whole blood (12/18/2024 6:46 AM CDT) Ca, ionized, bld 4.14(L) 4.50 - 5.10 mg/dL Blood 12/18/2024 6:46 AM CDT 12/18/2024 7:03 AM CDT Meghana Chance MD LAB BLOOD ORDERABLES Lanette l Result ETHAN [address] [facility] Department of Laboratories [place] [phone] * eGFR (12/18/2024 6:46 AM CDT) eGFR [...] ORDERABLES Lanette l Result Performing Organization Address [facility] de Phone Number [facility] [address] [address] [place] [address] * Protime-INR (12/18/2024 6:46 AM CDT) PT 10.9 9.7 - 13.0 sec INR 1.01 0.90 - 1.20 ETHAN Comment: Interpretive data Oral anticoagulant therapeutic ranges: Venous thromboembolism prophylaxis or treatment: 2.0-3.0 CARDIOLOGY Standard range: 2.0-3.0 High-intensity range: 2.5-3.5 Refer to indication-specific guidelines for appropriate target ranges for prosthetic heart valve replacement. Current interpretive data was last revised on 2019. Blood 12/18/2024 6:46 AM CDT 12/18/2024 7:04 AM CDT Meghana Chance MD LAB BLOOD ORDERABLES Lanette l Result Performing Organization Address [facility] Co de Phone Number [facility] [address] [address] [place] [address] * (ABNORMAL) CBC without differential (12/18/2024 6:46 AM CDT) WBC 5.46 3.80 - 9.90 K/cumm Hgb 13.8 13.0 - 17.5 g/dL [facility] Hct 40.7 38.9 - 50.3 % [facility] Plt 145(L) 150 - 400 K/cumm [facility] MPV 10.8 9.1 - 12.3 fL [facility] RBC 4.15(L) 4.30 - 5.80 M/cumm [facility] MCV 98.1(H) 81.3 - 96.4 fL [facility] MCH 33.3 27.1 - 33.3 pg [facility] MCHC 33.9 32.3 - 35.7 g/dL [facility] RDW CV 12.8 11.1 - 14.9 % [facility] RDW SD 45.6 35.7 - 48.1 fL [facility] NRBC abs 0.00 0.00 - 0.01 K/cumm [facility] Blood 12/18/2024 6:46 AM CDT 12/18/2024 7:03 AM CDT Meghana Chance MD LAB BLOOD ORDERABLES Lanette l Result Performing Organization Address [facility] Co de Phone Number [facility] [address] [facility] [place] [address] * Phosphorus (12/18/2024 6:46 AM CDT) Phosphorus, pl 2.6 2.3 - 4.5 mg/dL Blood 12/18/2024 6:46 AM CDT 12/18/2024 7:03 AM CDT Meghana Chance MD LAB BLOOD ORDERABLES Lanette l Result Performing Organization Address [facility] Co de Phone Number [facility] [address] [address] [facility] [place] [address] * Magnesium (12/18/2024 6:46 AM CDT) Magnesium 2.4 1.4 - 2.5 mg/dL Blood 12/18/2024 6:46 AM CDT 12/18/2024 7:03 AM CDT Meghana Chance MD LAB BLOOD ORDERABLES Lanette l Result Performing Organization Address City/[facility] Co de Phone Number [facility] [address] [address] Department [place] [address] * (ABNORMAL) Basic metabolic panel (12/18/2024 6:46 AM CDT) Sodium 136 135 - 145 mmol/L Potassium, pl 3.4 3.3 - 4.9 mmol/L [facility] Chloride 96(L) 97 - 110 mmol/L [facility] CO2 26 22 - 32 mmol/L [facility] Anion gap 14 2 - 15 mmol/L [facility] BUN 4(L) 6 - 25 mg/dL [facility] Creatinine 0.58(L) 0.80 - 1.30 mg/dL [facility] Comment:Icteric sample, test results may be affected. Glucose 89 70 - 199 mg/dL [facility] Comment: Interpretive Data Fasting glucose >/= [...] 2022. Calcium 8.8 8.5 - 10.3 mg/dL [facility] Blood 12/18/2024 6:46 AM CDT 12/18/2024 7:03 AM CDT Meghana Chance MD LAB BLOOD ORDERABLES Lanette l Result Performing Organization Address [facility] Co de Phone Number [facility] [address] [address] Department [place] [address] * Critical Care (12/17/2024 10:03 PM CDT) [...] with the patient's team and other medical/senior sales consultant staff. This time was in addition to and separate from care provided by other practitioners on this day of service. us Derian Hinds SURGICAL INSTRUMENT TECHNICIAN IN CLINIC/BEDSIDE ORDERABL ES Final Result * Troponin T high-sensitivity 6-hour (12/17/2024 5:29 PM CDT) Pathologist [facility] Trop T hs 10 <=22 ng/L Comment: [...] BLOOD ORDERABLES F inal Result [facility] [address] [address] Department [place] [address] * Sepsis Lactate w/ Reflex (12/17/2024 5:29 PM CDT) Pathologist [facility] Sepsis Lactate 1.8 0.7 - 2.0 mmol/L Blood 12/17/2024 5:29 PM CDT 12/17/2024 5:59 PM CDT us Jered Titus DO LAB BLOOD ORDERABLES Final Res ult [facility] [address] [address] [place] [address] * (ABNORMAL) Calcium, ionized, whole blood (12/17/2024 5:29 PM CDT) Ca, ionized, bld 3.99(L) 4.50 - 5.10 mg/dL Blood 12/17/2024 5:29 PM CDT 12/17/2024 5:59 PM CDT Meghana Chance MD LAB BLOOD ORDERABLES Lanette l Result Performing Organization Address [facility] Co de Phone Number [facility] [address] [address] Department [place] [address] * eGFR (12/17/2024 5:29 PM CDT) eGFR [...] ORDERABLES Lanette l Result Performing Organization Address City/[facility]/ZIP Co de Phone Number [facility] [address] [facility] [place] [address] * (ABNORMAL) Phosphorus (12/17/2024 5:29 PM CDT) Phosphorus, pl 2.1(L) 2.3 - 4.5 mg/dL Blood 12/17/2024 5:29 PM CDT 12/17/2024 5:59 PM CDT Meghana Chance MD LAB BLOOD ORDERABLES Lanette l Result Performing Organization Address [facility] Co de Phone Number ALFREDO[facility]DE STA[facility] [address] [address] [place] [address] * (ABNORMAL) Magnesium (12/17/2024 5:29 PM CDT) Magnesium 1.1(L) 1.4 - 2.5 mg/dL Blood 12/17/2024 5:29 PM CDT 12/17/2024 5:59 PM CDT Meghana Chance MD LAB BLOOD ORDERABLES Lanette l Result Performing Organization Address City/[facility] Co de Phone Number [facility] [address] [address] [place] [address] * (ABNORMAL) Basic metabolic panel (12/17/2024 5:29 PM CDT) Sodium 138 135 - 145 mmol/L Potassium, pl 3.4 3.3 - 4.9 mmol/L [facility] Chloride 97 97 - 110 mmol/L [facility] CO2 24 22 - 32 mmol/L [facility] Anion gap 17(H) 2 - 15 mmol/L [facility] BUN 6 6 - 25 mg/dL [facility] Creatinine 0.50(L) 0.80 - 1.30 mg/dL [facility] Glucose 90 70 - 199 mg/dL [facility] Comment: [...] 2022. Calcium 8.8 8.5 - 10.3 mg/dL [facility] Blood 12/17/2024 5:29 PM CDT 12/17/2024 5:59 PM CDT Meghana Chance MD LAB BLOOD ORDERABLES Lanette l Result Performing Organization Address [facility] Co de Phone Number [facility] [address] [address] Department [place] [address] * ECG 12 lead (12/17/2024 4:45 PM CDT) 12/17/2024 4:45 PM CDT Narrative [facility] - 12/17/2024 6:24 PM CDT Vent Rate: 119 bpm RR Interval: 503 msec ND Interval: 149 msec QRS Duration: 81 msec QT Interval: 310 msec QTC Interval: 381 msec P-R-T [place]: 56 - 38 - 44 degrees IMPRESSION: SINUS TACHYCARDIA ABNORMAL RHYTHM ECG Electronically Signed By: Dr. Adriana Hernandez [facility] Meghana Chance MD ECG ORDERABLES Final Res ult Performing Organization Address [facility] Co de Phone Number [facility] [employer] [facility] * POCT glucose (12/17/2024 3:36 PM CDT) [facility] Signature Glucose, POC 98 70 - 199 mg/dL POC Performer [id number] [facility] Blood 12/17/2024 3:36 PM CDT 12/17/2024 3:36 PM CDT Meghana Chance MD LAB POCT ORDERABLES - DEV ICE Final Result [facility] [address] [address] Department [place] [address] * Critical Care (12/17/2024 3:34 PM CDT) [...] with the ICU team and other medical/senior sales consultant staff, making frequent assessments and decisions [...] Lactate w/ Reflex (12/17/2024 2:46 PM CDT) Sepsis Lactate 5.7(C) 0.7 - 2.0 mmol/L Comment:Critical result call ed to and read back by Sarah Grimes (RN_) on 12/17/2024 15:28:04 CDT_ to Cathi Dixon . Blood 12/17/2024 2:46 PM CDT 12/17/2024 3:04 PM CDT Jered Titus DO LAB BLOOD ORDERABLES Final Res ult Performing Organization Address [facility] Co de Phone Number [facility] [address] [facility] [place] [address] * Troponin T high-sensitivity 4-hour (12/17/2024 1:20 PM CDT) Trop T hs 10 <=22 ng/L Comment: Interpretive Data For further hscTnT resources including the diagnostic algorithm and an aid in interpretation, copy and paste this link: https://nrl.testcatalog.org/show/hsTrop Current Interpretive Data last revised 2020. Trop T hs delta 1 ng/L [facility] Trop T hs interp Insignificant [facility] Blood 12/17/2024 1:20 PM CDT 12/17/2024 1:29 PM CDT Christina Shepard MD LAB BLOOD ORDERABLES F inal Result Performing Organization Address [facility] de Phone Number [facility] [address] [address] [place] [address] * (ABNORMAL) Beta-hydroxybutyrate (12/17/2024 1:20 PM CDT) Beta-Hydroxybut yrate 0.8(H) <=0.5 mmol/L Blood 12/17/2024 1:20 PM CDT 12/17/2024 1:48 PM CDT Jered Titus DO LAB BLOOD ORDERABLES Final Res ult Performing Organization Address [facility] Co de Phone Number [facility] [address] [address] [place] [address] * Troponin T high-sensitivity 2-hour (12/17/2024 11:42 AM CDT) Trop T hs 10 <=22 ng/L Comment: Interpretive Data For further hscTnT resources including the diagnostic algorithm and an aid in interpretation, copy and paste this link: https://nrl.testcatalog.org/show/hsTrop Current Interpretive Data last revised 2020. Trop T hs delta 1 ng/L [facility] Trop T hs interp Insignificant [facility] Blood 12/17/2024 11:4 2 AM CDT 12/17/2024 12:04 PM CDT Christina Shepard MD LAB BLOOD ORDERABLES F inal Result Performing Organization Address City/[facility]/ZIP Co de Phone Number [facility] [facility] [address] [place] [address] * (ABNORMAL) Sepsis Lactate w/ Reflex (12/17/2024 11:42 AM CDT) Sepsis Lactate 6.9(C) 0.7 - 2.0 mmol/L Comment:Alert Lactate called to and read back by Kenzie Cordero at 12/17/2024 12:09:20 CDT by Kallie Sabillon. Blood 12/17/2024 11:4 2 AM CDT 12/17/2024 12:03 PM CDT Jered Titus DO LAB BLOOD ORDERABLES Final Res ult Performing Organization Address City/[facility]/ZIP Co de Phone Number [facility]AN [facility] [address] Department [place] [address] * CT Head WO Contrast (12/17/2024 11:36 [...] infarct. Electronically signed by: Yumiko Smith M.D. Jered Titus DO IMG CT PROCEDURES Final Result * ND CRITICAL CARE ILL/INJURED PATIENT INIT 30-74 MIN [...] and discussed management with the admitting team. us Jered Titus DO IN CLINIC/BEDSIDE ORDERABLES F [...] CDT Jered Titus DO LAB BLOOD ORDERABLES Edited Re sult - Final ETHAN [address] [place] [address] * eGFR (12/17/2024 9:41 AM CDT) eGFR [...] DO LAB BLOOD ORDERABLES Final Res ult [facility] [address] Department [place] [address] * (ABNORMAL) Differential, auto (12/17/2024 9:41 AM CDT) Neutrophil abs 9.85(H) 1.50 - 6.50 K/cumm Imm gran abs 0.06 0.00 - 0.10 K/cumm [facility] Lymphocyte abs 1.60 0.80 - 3.30 K/cumm [facility] Monocyte abs 0.73 0.20 - 0.80 K/cumm [facility] Eosinophil abs 0.05 0.00 - 0.50 K/cumm [facility] Basophil abs 0.09 0.00 - 0.10 K/cumm [facility] Neutrophil pct 79.6 % [facility] Comment: Interpretive Data Percent cell count reference ranges are not reported, since discordance with absolute values may lead to misinterpretation of CBC data. Current Interpretive Data was last revised on 2017. Imm gran pct 0.5 % [facility] Comment: Interpretive Data Percent cell count reference ranges are not reported, since discordance with absolute values may lead to misinterpretation of CBC data. Current Interpretive Data was last revised on 2017. Lymphocyte pct 12.9 % [facility] Comment: Interpretive Data Percent cell count reference ranges are not reported, since discordance with absolute values may lead to misinterpretation of CBC data. Current Interpretive Data was last revised on 2017. Monocyte pct 5.9 % [facility] Comment: Interpretive Data Percent cell count reference ranges are not reported, since discordance with absolute values may lead to misinterpretation of CBC data. Current Interpretive Data was last revised on 2017. Eosinophil pct 0.4 % [facility] Comment: Interpretive Data Percent cell count reference ranges are not reported, since discordance with absolute values may lead to misinterpretation of CBC data. Current Interpretive Data was last revised on 2017. Basophil pct 0.7 % [facility] Comment: Interpretive Data Percent cell count reference ranges are not reported, since discordance with absolute values may lead to misinterpretation of CBC data. Current Interpretive Data was last revised on 2017. Blood 12/17/2024 9:41 AM CDT 12/17/2024 9:48 AM CDT us Jered Titus DO LAB BLOOD ORDERABLES Final Res ult [facility] [address] Department [place] [address] * Pro B-type natriuretic peptide (12/17/2024 9:41 [...] Heart J. 2006:27:330-337. 2. Beckie RW, Eduard AM. J. AM Misa Cardiol: Cardiovasc Imag. 2009;2: 216- 225. Interpretive Data Last Revised Date: 2018. Blood 12/17/2024 9:41 AM CDT 12/17/2024 9:47 AM CDT Jered Titus DO LAB BLOOD ORDERABLES Final Res ult Performing Organization Address [facility] Co de Phone Number [facility]AN [facility] [address] [place] [address] * (ABNORMAL) CBC with auto differential (12/17/2024 9:41 AM CDT) WBC 12.38(H) 3.80 - 9.90 K/cumm Hgb 14.4 13.0 - 17.5 g/dL [facility] Hct 43.7 38.9 - 50.3 % [facility] Plt 175 150 - 400 K/cumm [facility] Comment:No clot detected in sample. MPV 10.9 9.1 - 12.3 fL [facility] RBC 4.42 4.30 - 5.80 M/cumm [facility] MCV 98.9(H) 81.3 - 96.4 fL [facility] MCH 32.6 27.1 - 33.3 pg [facility] MCHC 33.0 32.3 - 35.7 g/dL [facility] RDW CV 12.9 11.1 - 14.9 % [facility] RDW SD 46.7 35.7 - 48.1 fL [facility] NRBC abs 0.00 0.00 - 0.01 K/cumm [facility] Morphologic Screen Results confirmed by manual morphology review. [facility] Blood 12/17/2024 9:41 AM CDT 12/17/2024 9:48 AM CDT Jered Titus DO LAB BLOOD ORDERABLES Final Res ult Performing Organization Address [facility] Co de Phone Number [facility]AN [facility] [address] [place] [address] * Magnesium (12/17/2024 9:41 AM CDT) Magnesium 1.5 1.4 - 2.5 mg/dL Blood 12/17/2024 9:41 AM CDT 12/17/2024 11:25 AM CDT Jered Titus LAB BLOOD ORDERABLES Final Res ult Performing Organization Address [facility] de Phone Number [facility]AN [facility] [address] [facility] [place] [address] * (ABNORMAL) Ethanol (12/17/2024 9:41 AM CDT) Ethanol 173(H) <=10 mg/dL Comment: Interpretive Data Legal limit of intoxication > or = 80 mg/dL Levels > or = 400 mg/dL are potentially TOXIC. Current interpretive data was last revised on 2018. Blood 12/17/2024 9:41 AM CDT 12/17/2024 11:25 AM CDT Jered Gatesse LAB BLOOD ORDERABLES Final Res ult Performing Organization Address [facility] de Phone Number [facility] [address] [facility] [place] [address] * (ABNORMAL) Comprehensive metabolic panel (12/17/2024 9:41 AM CDT) Sodium 145 135 - 145 mmol/L Potassium, pl 3.7 3.3 - 4.9 mmol/L [facility] Chloride 98 97 - 110 mmol/L [facility] CO2 25 22 - 32 mmol/L [facility] Anion gap 22(H) 2 - 15 mmol/L [facility] BUN 9 6 - 25 mg/dL [facility] Creatinine 0.74(L) 0.80 - 1.30 mg/dL [facility] Glucose 103 70 - 199 mg/dL [facility] Comment: Interpretive Data Fasting glucose >/= [...] ORDERABLES Final Res ult Performing Organization Address City/[facility] Co de Phone Number [facility] [address] Department [place] [address] * ECG 12 lead (12/17/2024 8:50 AM CDT) 12/17/2024 8:50 AM CDT Narrative [facility] - 12/17/2024 6:31 PM CDT Vent Rate: 145 bpm RR Interval: 413 msec ND Interval: 131 msec QRS Duration: 86 msec QT Interval: 290 msec QTC Interval: 373 msec P-R-T [place]: 38 - -69 - 46 degrees IMPRESSION: SINUS TACHYCARDIA, POSSIBLE ATRIAL FLUTTER LOW QRS VOLTAGE IN PRECORDIAL LEADS [QRS DEFLECTION < 1.0 mV IN CHEST LEADS] PATTERN CONSISTENT WITH PULMONARY DISEASE Poor R-wave progression Electronically Signed By: Dr. Adriana Hernandez [facility] us Christina Shepard MD ECG ORDERABLES Final Result Performing Organization Address City/[facility] Co de Phone Number [facility] [employer] [facility] * eGFR (11/03/2024 7:22 AM CDT) Pathologist [facility] eGFR >90 >=60 mL/min/1. 73 m2 Comment: [...] NP LAB BLOOD ORDERABLES Final Result ETHAN [address] Department [place] [address] * (ABNORMAL) Differential, auto (11/03/2024 7:22 AM CDT) Pathologist [facility] Neutrophil abs 4.5 1.5 - 6.5 K/cumm Imm gran abs 0.1 0.0 - 0.1 K/cumm [facility] Lymphocyte abs 2.4 0.8 - 3.3 K/cumm [facility] Monocyte abs 1.0(H) 0.2 - 0.8 K/cumm [facility] Eosinophil abs 0.3 0.0 - 0.5 K/cumm [facility] Basophil abs 0.1 0.0 - 0.1 K/cumm [facility] Neutrophil pct 53.2 % [facility] Comment: Interpretive Data Percent cell count reference ranges are not reported, since discordance with absolute values may lead to misinterpretation of CBC data. Current Interpretive Data was last revised on 2017. Imm gran pct 0.8 % [facility] Comment: Interpretive Data Percent cell count reference ranges are not reported, since discordance with absolute values may lead to misinterpretation of CBC data. Current Interpretive Data was last revised on 2017. Lymphocyte pct 29.0 % [facility] Comment: Interpretive Data Percent cell count reference ranges are not reported, since discordance with absolute values may lead to misinterpretation of CBC data. Current Interpretive Data was last revised on 2017. Monocyte pct 11.7 % [facility] Comment: Interpretive Data Percent cell count reference ranges are not reported, since discordance with absolute values may lead to misinterpretation of CBC data. Current Interpretive Data was last revised on 2017. Eosinophil pct 3.9 % [facility] Comment: Interpretive Data Percent cell count reference ranges are not reported, since discordance with absolute values may lead to misinterpretation of CBC data. Current Interpretive Data was last revised on 2017. Basophil pct 1.4 % [facility] Comment: Interpretive Data Percent cell count reference ranges are not reported, since discordance with absolute values may lead to misinterpretation of CBC data. Current Interpretive Data was last revised on 2017. Blood 11/03/2024 7:22 AM CDT 11/03/2024 7:38 AM CDT Maria E Ayala NP LAB BLOOD ORDERABLES Final Result [facility] [address] Department [place] [address] * (ABNORMAL) CBC with auto differential (11/03/2024 7:22 AM CDT) WBC 8.4 3.8 - 9.9 K/cumm Hgb 13.7 13.0 - 17.5 g/dL [facility] Hct 44.4 38.9 - 50.3 % [facility] Plt 235 150 - 400 K/cumm [facility] MPV 10.4 9.1 - 12.3 fL [facility] RBC 4.19(L) 4.30 - 5.80 M/cumm [facility] MCV 106.0(H) 81.3 - 96.4 fL [facility] Comment:MCV delta possibly d ue to low sample volume. MCH 32.7 27.1 - 33.3 pg [facility] MCHC 30.9(L) 32.3 - 35.7 g/dL [facility] RDW CV 13.1 11.1 - 14.9 % [facility] RDW SD 51.0(H) 35.7 - 48.1 fL [facility] NRBC abs 0.00 0.00 - 0.01 K/cumm [facility] Blood 11/03/2024 7:22 AM CDT 11/03/2024 7:38 AM CDT Maria E Ayala NP LAB BLOOD ORDERABLES Final Result [facility] [address] Department [place] [address] * (ABNORMAL) Basic metabolic panel (11/03/2024 7:22 AM CDT) Sodium 137 135 - 145 mmol/L Potassium, pl 3.7 3.3 - 4.9 mmol/L [facility] Chloride 101 97 - 110 mmol/L [facility] CO2 23 22 - 32 mmol/L [facility] Anion gap 13 2 - 15 mmol/L [facility] BUN 8 6 - 25 mg/dL [facility] Creatinine 0.77(L) 0.80 - 1.30 mg/dL [facility] Glucose 91 70 - 199 mg/dL [facility] Comment: Interpretive Data Fasting glucose >/= [...] 2022. Calcium 9.3 8.5 - 10.3 mg/dL [facility] Blood 11/03/2024 7:22 AM CDT 11/03/2024 7:38 AM CDT Maria E Amorambar SURGICAL INSTRUMENT TECHNICIAN LAB BLOOD ORDERABLES Final Result [facility] [address] [place] [address] * eGFR (11/02/2024 6:57 AM CDT) eGFR >90 >=60 mL/min/1. 73 [...] CDT 11/02/2024 7:14 AM CDT Maria E Evans Lucy ELLINGTON LAB BLOOD ORDERABLES Final Result [facility] [address] [place] [address] * Differential, auto (11/02/2024 6:57 AM CDT) Neutrophil abs 2.7 1.5 - 6.5 K/cumm Imm gran abs 0.0 0.0 - 0.1 K/cumm [facility] Lymphocyte abs 2.3 0.8 - 3.3 K/cumm [facility] Monocyte abs 0.8 0.2 - 0.8 K/cumm [facility] Eosinophil abs 0.3 0.0 - 0.5 K/cumm [facility] Basophil abs 0.1 0.0 - 0.1 K/cumm [facility] Neutrophil pct 43.1 % [facility] Comment: Interpretive Data Percent cell count reference ranges are not reported, since discordance with absolute values may lead to misinterpretation of CBC data. Current Interpretive Data was last revised on 2017. Imm gran pct 0.5 % [facility] Comment: Interpretive Data Percent cell count reference ranges are not reported, since discordance with absolute values may lead to misinterpretation of CBC data. Current Interpretive Data was last revised on 2017. Lymphocyte pct 36.6 % [facility] Comment: Interpretive Data Percent cell count reference ranges are not reported, since discordance with absolute values may lead to misinterpretation of CBC data. Current Interpretive Data was last revised on 2017. Monocyte pct 13.1 % [facility] Comment: Interpretive Data Percent cell count reference ranges are not reported, since discordance with absolute values may lead to misinterpretation of CBC data. Current Interpretive Data was last revised on 2017. Eosinophil pct 5.1 % [facility] Comment: Interpretive Data Percent cell count reference ranges are not reported, since discordance with absolute values may lead to misinterpretation of CBC data. Current Interpretive Data was last revised on 2017. Basophil pct 1.6 % [facility] Comment: Interpretive Data Percent cell count reference ranges are not reported, since discordance with absolute values may lead to misinterpretation of CBC data. Current Interpretive Data was last revised on 2017. Blood 11/02/2024 6:57 AM CDT 11/02/2024 7:16 AM CDT Maria E Ayala NP LAB BLOOD ORDERABLES Final Result [facility] [address] [place] [address] * (ABNORMAL) CBC with auto differential (11/02/2024 6:57 AM CDT) WBC 6.3 3.8 - 9.9 K/cumm Hgb 14.4 13.0 - 17.5 g/dL [facility] Hct 43.1 38.9 - 50.3 % [facility] Plt 276 150 - 400 K/cumm [facility] MPV 11.0 9.1 - 12.3 fL [facility] RBC 4.32 4.30 - 5.80 M/cumm [facility] MCV 99.8(H) 81.3 - 96.4 fL [facility] MCH 33.3 27.1 - 33.3 pg [facility] MCHC 33.4 32.3 - 35.7 g/dL [facility] RDW CV 12.8 11.1 - 14.9 % [facility] RDW SD 47.2 35.7 - 48.1 fL [facility] NRBC abs 0.00 0.00 - 0.01 K/cumm [facility] Blood 11/02/2024 6:57 AM CDT 11/02/2024 7:16 AM CDT Maria E Ayala NP LAB BLOOD ORDERABLES Final Result [facility] [address] [place] [address] * Magnesium (11/02/2024 6:57 AM CDT) [facility] Magnesium 1.8 1.4 - 2.5 mg/dL Blood 11/02/2024 6:57 AM CDT 11/02/2024 7:14 AM CDT John Barone MD LAB BLOOD ORDERABLES Final Resu lt [facility] [address] Department of Laboratories [place], [place] [id number] * Basic metabolic panel (11/02/2024 6:57 AM CDT) Sodium 139 135 - 145 mmol/L Potassium, pl 3.5 3.3 - 4.9 mmol/L [facility] Chloride 102 97 - 110 mmol/L [facility] CO2 25 22 - 32 mmol/L [facility] Anion gap 12 2 - 15 mmol/L [facility] BUN 8 6 - 25 mg/dL [facility] Creatinine 0.80 0.80 - 1.30 mg/dL [facility] Glucose 86 70 - 199 mg/dL [facility] Comment: Interpretive Data Fasting glucose >/= [...] 2022. Calcium 9.5 8.5 - 10.3 mg/dL [facility] Blood 11/02/2024 6:57 AM CDT 11/02/2024 7:14 AM CDT Maria E Ayala NP LAB BLOOD ORDERABLES Final Result [facility] [address] Department [place] [address] * eGFR (11/01/2024 5:58 AM CDT) Pathologist [facility] eGFR >90 >=60 mL/min/1. 73 m2 Comment: [...] 5:58 AM CDT 11/01/2024 6:12 AM CDT MariaE Ayala NP LAB BLOOD ORDERABLES Final Result [facility]AN [address] Department [place] [address] * Differential, auto (11/01/2024 5:58 AM CDT) Neutrophil abs 1.8 1.5 - 6.5 K/cumm Imm gran abs 0.0 0.0 - 0.1 K/cumm [facility] Lymphocyte abs 2.2 0.8 - 3.3 K/cumm [facility] Monocyte abs 0.8 0.2 - 0.8 K/cumm [facility] Eosinophil abs 0.2 0.0 - 0.5 K/cumm [facility] Basophil abs 0.1 0.0 - 0.1 K/cumm [facility] Neutrophil pct 35.7 % [facility] Comment: Interpretive Data Percent cell count reference ranges are not reported, since discordance with absolute values may lead to misinterpretation of CBC data. Current Interpretive Data was last revised on 2017. Imm gran pct 0.2 % [facility] Comment: Interpretive Data Percent cell count reference ranges are not reported, since discordance with absolute values may lead to misinterpretation of CBC data. Current Interpretive Data was last revised on 2017. Lymphocyte pct 42.9 % [facility] Comment: Interpretive Data Percent cell count reference ranges are not reported, since discordance with absolute values may lead to misinterpretation of CBC data. Current Interpretive Data was last revised on 2017. Monocyte pct 15.8 % [facility] Comment: Interpretive Data Percent cell count reference ranges are not reported, since discordance with absolute values may lead to misinterpretation of CBC data. Current Interpretive Data was last revised on 2017. Eosinophil pct 3.4 % [facility] Comment: Interpretive Data Percent cell count reference ranges are not reported, since discordance with absolute values may lead to misinterpretation of CBC data. Current Interpretive Data was last revised on 2017. Basophil pct 2.0 % [facility] Comment: Interpretive Data Percent cell count reference ranges are not reported, since discordance with absolute values may lead to misinterpretation of CBC data. Current Interpretive Data was last revised on 2017. Blood 11/01/2024 5:58 AM CDT 11/01/2024 6:13 AM CDT Maria E Ayala NP LAB BLOOD ORDERABLES Final Result [facility] [address] Department of Laboratories [place], [place] [id number] * (ABNORMAL) CBC with auto differential (11/01/2024 5:58 AM CDT) WBC 5.0 3.8 - 9.9 K/cumm Hgb 13.3 13.0 - 17.5 g/dL [facility] Hct 41.5 38.9 - 50.3 % [facility] Plt 203 150 - 400 K/cumm [facility] MPV 10.6 9.1 - 12.3 fL [facility] RBC 4.05(L) 4.30 - 5.80 M/cumm [facility] MCV 102.5(H) 81.3 - 96.4 fL [facility] MCH 32.8 27.1 - 33.3 pg [facility] MCHC 32.0(L) 32.3 - 35.7 g/dL [facility] RDW CV 13.0 11.1 - 14.9 % [facility] RDW SD 49.5(H) 35.7 - 48.1 fL [facility] NRBC abs 0.00 0.00 - 0.01 K/cumm [facility] Blood 11/01/2024 5:58 AM CDT 11/01/2024 6:13 AM CDT Maria E Ayala NP LAB BLOOD ORDERABLES Final Result Performing Organization Address City/[facility]/ZIP Co de Phone Number [facility] [address] Department [place] [address] * Magnesium (11/01/2024 5:58 AM CDT) Pathologist [facility] Magnesium 1.7 1.4 - 2.5 mg/dL Blood 11/01/2024 5:58 AM CDT 11/01/2024 6:12 AM CDT John Barone MD LAB BLOOD ORDERABLES Final Resu lt Performing Organization Address [facility] Co de Phone Number [facility] [address] [place] [address] * (ABNORMAL) Basic metabolic panel (11/01/2024 5:58 AM CDT) Pathologist [facility] Sodium 140 135 - 145 mmol/L Potassium, pl 3.7 3.3 - 4.9 mmol/L [facility] Chloride 106 97 - 110 mmol/L [facility] CO2 20(L) 22 - 32 mmol/L [facility] Anion gap 14 2 - 15 mmol/L [facility] BUN 6 6 - 25 mg/dL [facility] Creatinine 0.63(L) 0.80 - 1.30 mg/dL [facility] Glucose 98 70 - 199 mg/dL [facility] Comment: Interpretive Data Fasting glucose >/= [...] 2022. Calcium 9.1 8.5 - 10.3 mg/dL [facility] Blood 11/01/2024 5:58 AM CDT 11/01/2024 6:12 AM CDT Maria E Cristina Ayala LAB BLOOD ORDERABLES Final Result Performing Organization Address [facility] Co de Phone Number [facility] [address] [employer] [place], [place] [id number] * eGFR (10/31/2024 4:16 AM CDT) eGFR >90 >=60 mL/min/1. 73 [...] CDT 10/31/2024 4:32 AM CDT Maria E Cristina Ayala NP LAB BLOOD ORDERABLES Final Result Performing Organization Address [facility]/ZIP Co de Phone Number [facility] [address] [place] [address] * (ABNORMAL) Differential, auto (10/31/2024 4:16 AM CDT) Neutrophil abs 2.3 1.5 - 6.5 K/cumm Imm gran abs 0.0 0.0 - 0.1 K/cumm [facility] Lymphocyte abs 2.7 0.8 - 3.3 K/cumm [facility] Monocyte abs 0.9(H) 0.2 - 0.8 K/cumm [facility] Eosinophil abs 0.1 0.0 - 0.5 K/cumm [facility] Basophil abs 0.1 0.0 - 0.1 K/cumm [facility] Neutrophil pct 37.7 % [facility] Comment: Interpretive Data Percent cell count reference ranges are not reported, since discordance with absolute values may lead to misinterpretation of CBC data. Current Interpretive Data was last revised on 2017. Imm gran pct 0.5 % [facility] Comment: Interpretive Data Percent cell count reference ranges are not reported, since discordance with absolute values may lead to misinterpretation of CBC data. Current Interpretive Data was last revised on 2017. Lymphocyte pct 44.2 % [facility] Comment: Interpretive Data Percent cell count reference ranges are not reported, since discordance with absolute values may lead to misinterpretation of CBC data. Current Interpretive Data was last revised on 2017. Monocyte pct 14.0 % [facility] Comment: Interpretive Data Percent cell count reference ranges are not reported, since discordance with absolute values may lead to misinterpretation of CBC data. Current Interpretive Data was last revised on 2017. Eosinophil pct 2.3 % [facility] Comment: Interpretive Data Percent cell count reference ranges are not reported, since discordance with absolute values may lead to misinterpretation of CBC data. Current Interpretive Data was last revised on 2017. Basophil pct 1.3 % [facility] Comment: Interpretive Data Percent cell count reference ranges are not reported, since discordance with absolute values may lead to misinterpretation of CBC data. Current Interpretive Data was last revised on 2017. Blood 10/31/2024 4:16 AM CDT 10/31/2024 4:32 AM CDT Maria E Ayala NP LAB BLOOD ORDERABLES Final Result [facility] [address] [place] [address] * (ABNORMAL) CBC with auto differential (10/31/2024 4:16 AM CDT) WBC 6.1 3.8 - 9.9 K/cumm Hgb 12.1(L) 13.0 - 17.5 g/dL [facility] Hct 36.8(L) 38.9 - 50.3 % [facility] Plt 209 150 - 400 K/cumm [facility] MPV 10.4 9.1 - 12.3 fL [facility] RBC 3.66(L) 4.30 - 5.80 M/cumm [facility] MCV 100.5(H) 81.3 - 96.4 fL [facility] MCH 33.1 27.1 - 33.3 pg [facility] MCHC 32.9 32.3 - 35.7 g/dL [facility] RDW CV 13.0 11.1 - 14.9 % [facility] RDW SD 48.3(H) 35.7 - 48.1 fL [facility] NRBC abs 0.00 0.00 - 0.01 K/cumm [facility] Blood 10/31/2024 4:16 AM CDT 10/31/2024 4:32 AM CDT Maria E Cristina Ayala NP LAB BLOOD ORDERABLES Final Result [facility] [address] [place] [address] * (ABNORMAL) Basic metabolic panel (10/31/2024 4:16 AM CDT) Pathologist [facility] Sodium 143 135 - 145 mmol/L Potassium, pl 3.1(L) 3.3 - 4.9 mmol/L [facility] Chloride 105 97 - 110 mmol/L [facility] CO2 26 22 - 32 mmol/L [facility] Anion gap 12 2 - 15 mmol/L [facility] BUN 13 6 - 25 mg/dL [facility] Creatinine 0.57(L) 0.80 - 1.30 mg/dL [facility] Glucose 85 70 - 199 mg/dL [facility] Comment: Interpretive Data Fasting glucose >/= [...] 2022. Calcium 8.2(L) 8.5 - 10.3 mg/dL [facility] Blood 10/31/2024 4:16 AM CDT 10/31/2024 4:32 AM CDT Maria E Ayala NP LAB BLOOD ORDERABLES Final Result [facility] [address] [place] [address] * Troponin T high-sensitivity 2-hour (10/30/2024 9:51 AM CDT) Trop T hs 14 <=22 ng/L Comment: Interpretive Data For further hscTnT resources including the diagnostic algorithm and an aid in interpretation, copy and paste this link: [email or web address] Current Interpretive Data last revised 2020. Trop T hs delta 6 ng/L [facility] Trop T hs interp Equivocal [facility] Blood 10/30/2024 9:51 AM CDT 10/30/2024 9:59 AM CDT Jennifer Pisano MD LAB BLOOD ORDERABLES Fi nal Result [facility] [address] [facility] [place] [address] * Urinalysis reflex to microscopic and culture [...] tendency for uric acid stone formation. Source: [facility] Current Interpretive Data was last revised on [...] and culture not met. [facility] Urine 10/30/2024 9:51 AM CDT 10/30/2024 9:56 AM CDT Jennifer Pisano MD LAB MICROBIOLOGY - [facility] ORDERABLES Final Result [facility] [address] [place] [address] * (ABNORMAL) Drugs of Abuse Screen, Urine [...] 2023. Barbiturates, ur Not Detected CutOff 200ng/mL [facility] Comment: Interpretive Data - Barbiturates: Samples containing greater than 200 ng/mL secobarbital or other cross-reacting barbiturate compounds are reported as positive. False positive and false negative results are possible. Confirmatory testing required for definitive results. Current Interpretive Data was last reviewed 2023. Benzodiazepines, ur Screen Positive, presumptive (A) CutOff 100ng/mL [facility] Comment: Interpretive Data - Benzodiazepines: Samples containing greater than 100 ng/mL nordiazepam or other cross-reacting compounds are reported as positive. False positive and false negative results are possible. Confirmatory testing required for definitive results. Current Interpretive Data was last reviewed 2023. Cannabinoids, ur Not Detected CutOff 50 ng/mL [facility] Comment: Interpretive Data - Cannabinoids: Samples containing greater than 50 ng/mL delta-9 THC -COOH or other cross- reacting compounds are reported as positive. False positive and false negative results are possible. Confirmatory testing required for definitive results. Current Interpretive Data was last reviewed 2023. Cocaine, ur Not Detected CutOff 150ng/mL [facility] Comment: Interpretive Data - Cocaine: Samples containing greater than 150 ng/mL benzoylecgonine or other cross- reacting compounds are reported as positive. False positive and false negative results are possible. Confirmatory testing required for definitive results. Current Interpretive Data was last reviewed 2023. Fentanyl, Ur Not Detected CutOff 5 ng/mL [facility] Comment: Interpretive Data - Fentanyl: Samples containing greater than 5 ng/mL norfentanyl, fentanyl, or other cross-reacting fentanyl compounds are reported as positive. False positive and false negative results are possible. Confirmatory testing required for definitive results. Current Interpretive Data was last reviewed 2023. Methadone, ur Not Detected CutOff 300ng/mL [facility] Comment: Interpretive Data - Methadone: Samples containing greater than 300 ng/mL d,l-methadone or other cross-reacting compounds are reported as positive. False positive and false negative results are possible. Confirmatory testing required for definitive results. Current Interpretive Data was last reviewed 2023. Opiates, ur Not Detected CutOff 300ng/mL [facility] Comment: Interpretive Data - Opiates: Samples containing [...] last reviewed 2023. Urine Creatinine 150 mg/dL [facility] Comment: Interpretive Data Urine Creatinine: < 10 mg/dL is extremely dilute = or > 10 but < 20 mg/dL is dilute = or > 20 mg/dL is normal Current Interpretive Data was last revised on 2017. Urine 10/30/2024 9:51 AM CDT 10/30/2024 9:56 AM CDT Narrative [facility] - 10/30/2024 10:37 AM CDT Drug of Abuse screening is performed by immunoassay for medical purposes only. This is not to be used for Pain Management purposes. Jennifer Pisano MD LAB URINE ORDERABLES nal Result [facility] [address] Department [place] [address] * XR Chest 1 Vw Portable (10/30/2024 [...] disease. Electronically signed by: Yumiko Smith M.D. us Jennifer Pisano MD IMG XR PROCEDURES Final [...] LAB BLOOD ORDERABLES Fi nal Result [facility] [address] Department [place] [address] * eGFR (10/30/2024 7:53 AM CDT) eGFR [...] CDT Jennifer Pisano MD LAB BLOOD ORDERABLES [facility] Result [facility] [address] Department [place] [address] * Differential, auto (10/30/2024 7:53 AM CDT) Neutrophil abs 3.2 1.5 - 6.5 K/cumm Imm gran abs 0.1 0.0 - 0.1 K/cumm [facility] Lymphocyte abs 2.8 0.8 - 3.3 K/cumm [facility] Monocyte abs 0.8 0.2 - 0.8 K/cumm [facility] Eosinophil abs 0.1 0.0 - 0.5 K/cumm [facility] Basophil abs 0.1 0.0 - 0.1 K/cumm [facility] Neutrophil pct 45.0 % [facility] Comment: Interpretive Data Percent cell count reference ranges are not reported, since discordance with absolute values may lead to misinterpretation of CBC data. Current Interpretive Data was last revised on 2017. Imm gran pct 1.0 % [facility] Comment: Interpretive Data Percent cell count reference ranges are not reported, since discordance with absolute values may lead to misinterpretation of CBC data. Current Interpretive Data was last revised on 2017. Lymphocyte pct 39.8 % [facility] Comment: Interpretive Data Percent cell count reference ranges are not reported, since discordance with absolute values may lead to misinterpretation of CBC data. Current Interpretive Data was last revised on 2017. Monocyte pct 11.0 % [facility] Comment: Interpretive Data Percent cell count reference ranges are not reported, since discordance with absolute values may lead to misinterpretation of CBC data. Current Interpretive Data was last revised on 2017. Eosinophil pct 1.9 % [facility] Comment: Interpretive Data Percent cell count reference ranges are not reported, since discordance with absolute values may lead to misinterpretation of CBC data. Current Interpretive Data was last revised on 2017. Basophil pct 1.3 % [facility] Comment: Interpretive Data Percent cell count reference ranges are not reported, since discordance with absolute values may lead to misinterpretation of CBC data. Current Interpretive Data was last revised on 2017. Blood 10/30/2024 7:53 AM CDT 10/30/2024 7:53 AM CDT us Jennifer Pisano MD LAB BLOOD ORDERABLES [facility] Result [facility] [address] Department [place] [address] * (ABNORMAL) CBC with auto differential (10/30/2024 7:53 AM CDT) WBC 7.0 3.8 - 9.9 K/cumm Hgb 13.9 13.0 - 17.5 g/dL [facility] Hct 43.6 38.9 - 50.3 % [facility] Plt 279 150 - 400 K/cumm [facility] MPV 10.1 9.1 - 12.3 fL [facility] RBC 4.30 4.30 - 5.80 M/cumm [facility] MCV 101.4(H) 81.3 - 96.4 fL [facility] MCH 32.3 27.1 - 33.3 pg [facility] MCHC 31.9(L) 32.3 - 35.7 g/dL [facility] RDW CV 13.6 11.1 - 14.9 % [facility] RDW SD 50.8(H) 35.7 - 48.1 fL [facility] NRBC abs 0.00 0.00 - 0.01 K/cumm [facility] Blood Venous blood specimen / Unknown 10/30/2024 7:53 AM CDT 10/30/2024 7:53 AM CDT Jennifer Pisano MD LAB BLOOD ORDERABLES Fi nal Result Performing Organization Address [facility] de Phone Number [facility] [address] [place] [address] * (ABNORMAL) Ethanol (10/30/2024 7:53 AM CDT) Ethanol 233(H) <=10 mg/dL Comment: Interpretive Data Legal limit of intoxication > or = 80 mg/dL Levels > or = 400 mg/dL are potentially TOXIC. Current interpretive data was last revised on 2018. Blood 10/30/2024 7:53 AM CDT 10/30/2024 7:53 AM CDT Jennifer Pisano MD LAB BLOOD ORDERABLES Fi nal Result Performing Organization Address [facility] de Phone Number [facility] [id number] [place] [address] * (ABNORMAL) Comprehensive metabolic panel (10/30/2024 7:53 [...] ORDERABLES Fi nal Result Performing Organization Address [facility] de Phone Number [facility] [address] [facility] Department [place] [address] * ECG 12 lead (10/30/2024 7:52 AM CDT) 10/30/2024 7:52 AM CDT Narrative [facility] - 10/30/2024 10:22 PM CDT Vent Rate: 108 bpm RR Interval: 553 msec ND Interval: 162 msec QRS Duration: 91 msec QT Interval: 323 msec QTC Interval: 386 msec P-R-T [place]: 49 - -28 - 39 degrees IMPRESSION: SINUS TACHYCARDIA Electronically Signed By: Mitch Schaefer MD, [facility] Jennifer Pisano MD ECG ORDERABLES Final R esult Performing Organization Address City/[facility] Co de Phone Number [facility] * eGFR (10/25/2024 3:33 AM [...] BLOOD ORDERABLES Final Result Performing Organization Address [facility] de Phone Number [facility] [address] [place] [address] * Magnesium (10/25/2024 3:33 AM CDT) Magnesium 1.6 1.4 - 2.5 mg/dL Blood 10/25/2024 3:33 AM CDT 10/25/2024 3:37 AM CDT Chuy Cabral MD LAB BLOOD ORDERABLES Final Result Performing Organization Address [facility] [place] [address] [address] [place] [address] * (ABNORMAL) Basic metabolic panel (10/25/2024 3:33 AM CDT) Sodium 141 135 - 145 mmol/L Potassium, pl 3.8 3.3 - 4.9 mmol/L [facility] Chloride 104 97 - 110 mmol/L [facility] CO2 26 22 - 32 mmol/L [facility] Anion gap 11 2 - 15 mmol/L [facility] BUN 6 6 - 25 mg/dL [facility] Creatinine 0.68(L) 0.80 - 1.30 mg/dL [facility] Glucose 87 70 - 199 mg/dL [facility] Comment: Interpretive Data Fasting glucose >/= [...] 2022. Calcium 9.2 8.5 - 10.3 mg/dL [facility] Blood 10/25/2024 3:33 AM CDT 10/25/2024 3:37 AM CDT Chuy Cabral MD LAB BLOOD ORDERABLES Final Result [facility] [address] Department [place] [address] * eGFR (10/24/2024 5:45 AM CDT) eGFR [...] BLOOD ORDERABLES Final Result Performing Organization Address City/[facility]/ZIP Co de Phone Number [facility] [address] [place] [address] * Magnesium (10/24/2024 5:45 AM CDT) Pathologist [facility] Magnesium 1.7 1.4 - 2.5 mg/dL Blood 10/24/2024 5:45 AM CDT 10/24/2024 5:49 AM CDT Chuy Cabral MD LAB BLOOD ORDERABLES Final Result Performing Organization Address [facility] Co de Phone Number [facility] [address] [place] [address] * (ABNORMAL) Basic metabolic panel (10/24/2024 5:45 AM CDT) Sodium 143 135 - 145 mmol/L Potassium, pl 4.2 3.3 - 4.9 mmol/L [facility] Chloride 105 97 - 110 mmol/L [facility] CO2 28 22 - 32 mmol/L [facility] Anion gap 10 2 - 15 mmol/L [facility] BUN 4(L) 6 - 25 mg/dL [facility] Creatinine 0.79(L) 0.80 - 1.30 mg/dL [facility] Glucose 91 70 - 199 mg/dL [facility] Comment: Interpretive Data Fasting glucose >/= [...] 2022. Calcium 9.1 8.5 - 10.3 mg/dL [facility] Blood 10/24/2024 5:45 AM CDT 10/24/2024 5:49 AM CDT Chuy Cabral MD LAB BLOOD ORDERABLES Final Result [facility] [address] Department [place] [address] * eGFR (10/23/2024 6:01 AM CDT) eGFR [...] MD LAB BLOOD ORDERABLES Final Result [facility] [address] [facility] [place] [address] * Magnesium (10/23/2024 6:01 AM CDT) Pathologist [facility] Magnesium 1.6 1.4 - 2.5 mg/dL Blood 10/23/2024 6:01 AM CDT 10/23/2024 6:08 AM CDT Chuy Cabral MD LAB BLOOD ORDERABLES Final Result Performing Organization Address [facility] Co de Phone Number [facility] [address] [facility] [place] [address] * (ABNORMAL) Basic metabolic panel (10/23/2024 6:01 AM CDT) Pathologist [facility] Sodium 138 135 - 145 mmol/L Potassium, pl 3.0(L) 3.3 - 4.9 mmol/L [facility] Chloride 99 97 - 110 mmol/L [facility] CO2 29 22 - 32 mmol/L [facility] Anion gap 10 2 - 15 mmol/L [facility] BUN 5(L) 6 - 25 mg/dL [facility] Creatinine 0.67(L) 0.80 - 1.30 mg/dL [facility] Glucose 106 70 - 199 mg/dL [facility] Comment: Interpretive Data Fasting glucose >/= [...] 2022. Calcium 8.9 8.5 - 10.3 mg/dL [facility] Blood 10/23/2024 6:01 AM CDT 10/23/2024 6:08 AM CDT us Chuy Cabral MD LAB BLOOD ORDERABLES Final Result [facility] [address] Department [place] [address] * ND CRITICAL CARE ILL/INJURED PATIENT INIT 30-74 MIN [...] tendency for uric acid stone formation. Source: [facility] Current Interpretive Data was last revised on [...] for microscopic UA and culture not met. [facility] Urine 10/21/2024 9:32 PM CDT 10/21/2024 9:35 PM CDT Grayson Donnelly MD LAB MICROBIOLOGY - [facility] ORDERABLES Final Result [facility] [address] Department [place] [address] * (ABNORMAL) Drugs of Abuse Screen, Urine [...] 2023. Barbiturates, ur Not Detected CutOff 200ng/mL [facility] Comment: Interpretive Data - Barbiturates: Samples containing greater than 200 ng/mL secobarbital or other cross-reacting barbiturate compounds are reported as positive. False positive and false negative results are possible. Confirmatory testing required for definitive results. Current Interpretive Data was last reviewed 2023. Benzodiazepines, ur Screen Positive, presumptive (A) CutOff 100ng/mL [facility] Comment: Interpretive Data - Benzodiazepines: Samples containing greater than 100 ng/mL nordiazepam or other cross-reacting compounds are reported as positive. False positive and false negative results are possible. Confirmatory testing required for definitive results. Current Interpretive Data was last reviewed 2023. Cannabinoids, ur Not Detected CutOff 50 ng/mL [facility] Comment: Interpretive Data - Cannabinoids: Samples containing greater than 50 ng/mL delta-9 THC -COOH or other cross- reacting compounds are reported as positive. False positive and false negative results are possible. Confirmatory testing required for definitive results. Current Interpretive Data was last reviewed 2023. Cocaine, ur Not Detected CutOff 150ng/mL [facility] Comment: Interpretive Data - Cocaine: Samples containing greater than 150 ng/mL benzoylecgonine or other cross- reacting compounds are reported as positive. False positive and false negative results are possible. Confirmatory testing required for definitive results. Current Interpretive Data was last reviewed 2023. Fentanyl, Ur Not Detected CutOff 5 ng/mL [facility] Comment: Interpretive Data - Fentanyl: Samples containing greater than 5 ng/mL norfentanyl, fentanyl, or other cross-reacting fentanyl compounds are reported as positive. False positive and false negative results are possible. Confirmatory testing required for definitive results. Current Interpretive Data was last reviewed 2023. Methadone, ur Not Detected CutOff 300ng/mL [facility] Comment: Interpretive Data - Methadone: Samples containing greater than 300 ng/mL d,l-methadone or other cross-reacting compounds are reported as positive. False positive and false negative results are possible. Confirmatory testing required for definitive results. Current Interpretive Data was last reviewed 2023. Opiates, ur Not Detected CutOff 300ng/mL [facility] Comment: Interpretive Data - Opiates: Samples containing greater than 300 ng/mL morphine or other cross-reacting compounds are reported as positive. False positive and false negative results are possible. Confirmatory testing required for definitive results. Current Interpretive Data was last reviewed 2023. Oxycodone, ur Not Detected CutOff 100ng/mL [facility] Comment: Interpretive Data - Oxycodone: Samples containing greater than 100 ng/mL oxycodone or other cross-reacting compounds are reported as positive. False positive and false negative results are possible. Confirmatory testing required for definitive results. Current Interpretive Data was last reviewed 2023. Phencyclidine, ur Not Detected CutOff 25 ng/mL [facility] Comment: Interpretive Data - Phencyclidine: Samples containing greater than 25 ng/mL phencyclidine or other cross-reacting compounds are reported as positive. False positive and false negative results are possible. Confirmatory testing required for definitive results. Current Interpretive Data was last reviewed 2023. Urine Creatinine 117 mg/dL [facility] Comment: Interpretive Data Urine Creatinine: < 10 mg/dL is extremely dilute = or > 10 but < 20 mg/dL is dilute = or > 20 mg/dL is normal Current Interpretive Data was last revised on 2017. Urine 10/21/2024 9:32 PM CDT 10/21/2024 9:36 PM CDT Narrative [facility] - 10/21/2024 10:09 PM CDT Drug of Abuse screening is performed by immunoassay for medical purposes only. This is not to be used for Pain Management purposes. us Grayson Donnelly MD LAB URINE ORDERABLES Fin al Result [facility] [address] Department of Laboratories [place], [place] [id number] * CT Head Cervical Face WO Contrast (10/21/2024 8:26 PM CDT) Anatomical Region Laterality Modality Head and Neck N/A Computed Tomogra phy 10/21/2024 8:17 PM CDT Impressions 10/22/2024 7:33 AM CDT No acute intracranial change. Mild chronic sinus changes No acute cervical change. Stat report by [facility] Electronically signed by: Kelton Recio M.D. Narrative [...] No acute fracture. Normal alignment. There are lrfo-bs-kpyqunhg endplate and uncovertebral degenerative changes seen at [...] No acute fracture. Normal alignment. There are iaia-rr-scenqiot endplate and uncovertebral degenerative changes seen at multiple levels. No significant disc bulge or herniation. No severe spinal canal stenosis. Lungs: Lung apices are normal. Soft tissues: Unremarkable. IMPRESSION: No acute intracranial change. Mild chronic sinus changes No acute cervical change. Stat report by [facility] Electronically signed by: Kelton Recio M.D. us Grayson Donnelly MD IMG CT PROCEDURES Final [...] MD LAB BLOOD ORDERABLES Fin al Result [facility] [address] Department [place] [address] * (ABNORMAL) Differential, auto (10/21/2024 8:02 PM CDT) Pathologist [facility] Neutrophil abs 4.2 1.5 - 6.5 K/cumm Imm gran abs 0.0 0.0 - 0.1 K/cumm [facility] Lymphocyte abs 3.0 0.8 - 3.3 K/cumm [facility] Monocyte abs 0.9(H) 0.2 - 0.8 K/cumm [facility] Eosinophil abs 0.0 0.0 - 0.5 K/cumm [facility] Basophil abs 0.1 0.0 - 0.1 K/cumm [facility] Neutrophil pct 51.2 % [facility] Comment: Interpretive Data Percent cell count reference ranges are not reported, since discordance with absolute values may lead to misinterpretation of CBC data. Current Interpretive Data was last revised on 2017. Imm gran pct 0.4 % [facility] Comment: Interpretive Data Percent cell count reference ranges are not reported, since discordance with absolute values may lead to misinterpretation of CBC data. Current Interpretive Data was last revised on 2017. Lymphocyte pct 36.4 % [facility] Comment: Interpretive Data Percent cell count reference ranges are not reported, since discordance with absolute values may lead to misinterpretation of CBC data. Current Interpretive Data was last revised on 2017. Monocyte pct 10.6 % [facility] Comment: Interpretive Data Percent cell count reference ranges are not reported, since discordance with absolute values may lead to misinterpretation of CBC data. Current Interpretive Data was last revised on 2017. Eosinophil pct 0.5 % [facility] Comment: Interpretive Data Percent cell count reference ranges are not reported, since discordance with absolute values may lead to misinterpretation of CBC data. Current Interpretive Data was last revised on 2017. Basophil pct 0.9 % [facility] Comment: Interpretive Data Percent cell count reference ranges are not reported, since discordance with absolute values may lead to misinterpretation of CBC data. Current Interpretive Data was last revised on 2017. Blood 10/21/2024 8:02 PM CDT 10/21/2024 8:02 PM CDT us Grayson Donnelly MD LAB BLOOD ORDERABLES Fin al Result [facility] [address] Department [place] [address] * (ABNORMAL) CBC with auto differential (10/21/2024 8:02 PM CDT) WBC 8.1 3.8 - 9.9 K/cumm Hgb 16.3 13.0 - 17.5 g/dL [facility] Hct 49.6 38.9 - 50.3 % [facility] Plt 348 150 - 400 K/cumm [facility] MPV 9.5 9.1 - 12.3 fL [facility] RBC 5.01 4.30 - 5.80 M/cumm [facility] MCV 99.0(H) 81.3 - 96.4 fL [facility] MCH 32.5 27.1 - 33.3 pg [facility] MCHC 32.9 32.3 - 35.7 g/dL [facility] RDW CV 13.0 11.1 - 14.9 % [facility] RDW SD 47.5 35.7 - 48.1 fL [facility] NRBC abs 0.00 0.00 - 0.01 K/cumm [facility] Blood Venous blood specimen / Unknown 10/21/2024 8:02 PM CDT 10/21/2024 8:02 PM CDT Grayson Donnelly MD LAB BLOOD ORDERABLES Fin al Result Performing Organization Address City/[facility] Co de Phone Number [facility] [address] [facility] [place] [address] * Ammonia (10/21/2024 8:02 PM CDT) Ammonia 30 <=50 mcmol/L Blood 10/21/2024 8:02 PM CDT 10/21/2024 8:02 PM CDT Grayson Donnelly MD LAB BLOOD ORDERABLES Fin al Result Performing Organization Address [facility] Co de Phone Number [facility] [address] [place] [address] * (ABNORMAL) Ethanol (10/21/2024 8:02 PM CDT) [...] MD LAB BLOOD [place] [address] [address] Department [place] [address] * (ABNORMAL) Comprehensive metabolic panel (10/21/2024 8:02 PM CDT) Sodium 149(H) 135 - 145 mmol/L Potassium, pl 3.5 3.3 - 4.9 mmol/L [facility] Chloride 104 97 - 110 mmol/L [facility] CO2 27 22 - 32 mmol/L [facility] Anion gap 18(H) 2 - 15 mmol/L [facility] BUN 7 6 - 25 mg/dL [facility] Creatinine 0.86 0.80 - 1.30 mg/dL [facility] Glucose 160 70 - 199 mg/dL [facility] Comment: [...] LAB BLOOD ORDERABLES Fin al Result [facility] [address] Department [place] [address] * ECG 12 lead (10/21/2024 7:21 PM CDT) 10/21/2024 7:21 PM CDT Narrative [facility] - 10/22/2024 11:27 PM CDT Vent Rate: 116 bpm RR Interval: 515 msec ND Interval: 164 msec QRS Duration: 95 msec QT Interval: 307 msec QTC Interval: 376 msec P-R-T [place]: 58 - -13 - 46 degrees IMPRESSION: SINUS TACHYCARDIA ABNORMAL RHYTHM ECG Electronically Signed By: Dr. Adriana Hernandez [facility] us Chuy Cabral MD ECG ORDERABLES Lanette l Result Performing Organization Address City/[facility]/ZIP Co de Phone Number [facility] from Last 3 Months Insurance [facility] [place] [address] [place] [address] PLAN [facility] OFFICE [facility] PLAN Advance Directives For more information, please contact: [phone] * Full Code (Latest Code Status on File) Date Activated Date Inactivated Comments 12/17/2024 1:49 PM 12/20/2024 5:14 PM * Full Code Date Activated Date Inactivated Comments 10/30/2024 2:54 PM 11/03/2024 9:58 PM * Full Code Date Activated Date Inactivated Comments 10/22/2024 1:28 AM 10/25/2024 7:31 PM * Full Code Date Activated Date Inactivated Comments 10/10/2024 12:20 PM 10/13/2024 5:59 PM Care Teams Swager Operator Relationship Specialty Start Date End Date Weston Mantilla DO PCP - General Family Medicine 09/03/23 Kimberli Collins DPM [address] [place] [id number] Consulting Physician Foot and Ankle Surg 09/14/23
--- NOTE | 2025-01-21 00:59 | ED.ALCOHOL ---
HPI - Alcohol General Chief Complaint: Alcohol <Luz Sanford APRN - Last Filed: 01/21/25 03:07> Stated Complaint: WORSENING DEPRESSION, ETOH+ <Luz Sanford APRN - Last Filed: 01/21/25 03:07> History of Present Illness HPI narrative: Patient is a 54-year-old male who presents to the ER with concerns he is detoxing from alcohol. He reports last alcoholic drink was today, but he is unsure what time. Patient reports he last went through detox and rehab approximately 1/2 months ago. He reports he has a history of seizures when he detoxifies from alcohol. Patient reports typically drinks a 5th of vodka every day. He endorses a history of high blood pressure, tachycardia, and PTSD from combat. Patient denies any pain except for his right hip that has skin breakdown on it. He reports he fell but he is unsure how or when. [facility] <Luz Sanford APRN - Last Filed: 01/21/25 03:07> Related Data Home Medications: Home Medications ?Medication ?Instructions ?Recorded ?Confirmed ?Last Taken ?Type quetiapine 400 mg tablet 400 mg PO HS 06/12/19 07/22/24 07/21/24 History omeprazole 20 mg capsule,delayed 20 mg PO DAILY 06/07/20 07/22/24 Unknown History release lisinopril 20 mg tablet 20 mg PO DAILY 10/03/20 07/22/24 Unknown History trazodone 100 mg tablet 100 mg PO HS 07/22/24 07/22/24 07/21/24 History <Luz Sanford APRN - Last Filed: 01/21/25 03:07> Allergies/Adverse Reactions: Allergies Allergy/AdvReac Type Severity Reaction Status Date / Time Penicillins Allergy Unknown hive Verified 07/22/24 14:24 <Luz Sanford APRN - Last Filed: 01/21/25 03:07> Review of Systems Review of Systems: All systems reviewed & are unremarkable except as noted in HPI and below <Luz Sanford APRN - Last Filed: 01/21/25 03:07> [facility] Past Medical History Medical History: Medical History Nicotine use Posttraumatic stress disorder Essential hypertension Depression Anxiety Alcohol withdrawal seizure Seasonal allergies <Luz Sanford APRN - Last Filed: 01/21/25 03:07> Surgical History Surgical History: Surgical History History of surgical removal of ganglion cyst Right wrist. History of tonsillectomy and adenoidectomy History of umbilical hernia repair History of appendectomy History of tonsillectomy <Luz Sanford APRN - Last Filed: 01/21/25 03:07> Family History Family History: Family History Father Heart disease Mother Heart disease <Luz Sanford APRN - Last Filed: 01/21/25 03:07> Social History Social History: Social History Social History: Surrogate medical decision maker: Bonnie Sandhu, mother. Code status: Full code. Smoking packs per day: 0.5 Smoking cigarettes per day: 10.0 Years smoked: 25 Smoking pack-years: 12.50 Smoking status: Former smoker Tobacco type: cigarettes Smokeless tobacco user: chewing tobacco Second hand tobacco smoke exposure: Yes Alcohol intake: current Alcohol use details: 1/5 of vodka a day Substance use: never Substance use type: does not use Do You Feel Safe in your Home?: Yes Lack of Transportation: No Lack of Food: Never True Current Housing: I Have Housing Concerned About Future Housing: No Difficulty Paying Gas/Electric Bills: No Difficulty Paying for Meds: No Currently Unemployed: No Education: High School Diploma/GED Difficulty w/ Childcare or Family Care: No Additional living arrangements comments: Lives in [place]. 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 He is now on 90% disability through the [facility]. Spiritual care concerns: No <Luz Sanford APRN - Last Filed: 01/21/25 03:07> Exam Narrative: GENERAL: Ill appearing, well-nourished, non-toxic, in mild distress due to anxiety. HEAD: Normocephalic, atraumatic. NECK: Supple. No adenopathy, no masses. RESPIRATORY: Airway patent, respirations nonlabored. Clear to auscultation bilaterally, no rales, rhonchi, wheezing. CARDIOVASCULAR: Tachycardia without murmurs, rubs, or gallops. Peripheral pulses 2+ and equal bilaterally. ABDOMINAL: Soft, nontender, nondistended, no hepatosplenomegaly. Normoactive BS. No retching/dry heaving at time of examination. MUSCULOSKELETAL: Moves all extremities. Strength/ROM intact without gross deformities. SKIN: Warm, dry, normal color. No rashes. Bilateral hips and buttocks skin breakdown-redness and swelling NEURO: A&O X3. Speech clear. Tremors in hands at rest PSYCHIATRIC: intermittently tearful, shaky voice <Luz Sanford APRN - Last Filed: 01/21/25 03:07> Course BUSINESS OPERATIONS MANAGER/PA Physician Supervision For this patient encounter, I reviewed the BUSINESS OPERATIONS MANAGER or PA documentation, treatment plan, and medical decision making and had joes-nf-teca time with this patient. I performed all aspects of the MDM as documented. <Avis Valle MD - Last Filed: 01/21/25 03:16> Vital Signs Vital signs: Vital Signs Temperature 97.6 F 01/21/25 00:22 Pulse Rate 124 H 01/21/25 00:22 Respiratory Rate 14 01/21/25 00:22 Blood Pressure 179/121 H 01/21/25 00:22 Pulse Oximetry 92 01/21/25 00:22 Oxygen Delivery Room Air 01/21/25 00:22 Temperature 97.6 F 01/21/25 00:22 Pulse Rate 109 H 01/21/25 03:01 Respiratory Rate 14 01/21/25 03:01 Blood Pressure 160/98 H 01/21/25 03:01 Pulse Oximetry 98 01/21/25 03:01 Oxygen Delivery Room Air 01/21/25 00:22 <Luz Sanford APRN - Last Filed: 01/21/25 03:07> Vital Signs Temperature 97.6 F 01/21/25 00:22 Pulse Rate 124 H 01/21/25 00:22 Respiratory Rate 14 01/21/25 00:22 Blood Pressure 179/121 H 01/21/25 00:22 Pulse Oximetry 92 01/21/25 00:22 Oxygen Delivery Room Air 01/21/25 00:22 Temperature 97.6 F 01/21/25 00:22 Pulse Rate 109 H 01/21/25 03:01 Respiratory Rate 14 01/21/25 03:01 Blood Pressure 160/98 H 01/21/25 03:01 Pulse Oximetry 98 01/21/25 03:01 Oxygen Delivery Room Air 01/21/25 00:22 <Avis Valle MD - Last Filed: 01/21/25 03:16> MDM - Alcohol MDM Narrative Medical decision making narrative: Patient is a 54-year-old male who presents to the ER with concerns he is detoxing from alcohol. He reports last alcoholic drink was today, but he is unsure what time. Patient reports he last went through detox and rehab approximately 1/2 months ago. He reports he has a history of seizures when he detoxifies from alcohol. Patient reports typically drinks a 5th of vodka every day. He endorses a history of high blood pressure, tachycardia, and PTSD from combat. Patient denies any pain except for his right hip that has skin breakdown on it. He reports he fell but he is unsure how or when. Patient [facility] Labs Ordered: CBC, CMP, phosphorus, INR, PTT, magnesium, ethanol Imaging Ordered: Right hip x-ray Medications Ordered: 1 L normal saline IV bolus, magnesium 1 g IV, thymine 100 mg IV, folic acid 1 mg IV, Ativan 2 mg IV Results: Right hip x-ray indicates no acute abnormalities Diagnosis: alcohol withdrawal Spoke with hospitalist, Dr. Du, who [facility] able to [facility] the patient for alcohol detox, as that is where pt's primary care provider is located. [facility] was [facility] and [facility] have no available beds. [id number] signed out to Dr. Valle at shift change pending STAT RAD CT results. <Luz Sanford APRN - Last Filed: 01/21/25 03:07> Patient is a 54-year-old male who presents to the ER with concerns he is detoxing from alcohol. He reports last alcoholic drink was today, but he is unsure what time. Patient reports he last went through detox and rehab approximately 1/2 months ago. He reports he has a history of seizures when he detoxifies from alcohol. Patient reports typically drinks a 5th of vodka every day. He endorses a history of high blood pressure, tachycardia, and PTSD from combat. Patient denies any pain except for his right hip that has skin breakdown on it. He reports he fell but he is unsure how or when. Patient reports [facility]. Labs Ordered: CBC, CMP, phosphorus, INR, PTT, magnesium, ethanol Imaging Ordered: Right hip x-ray Medications Ordered: 1 L normal saline IV bolus, magnesium 1 g IV, thymine 100 mg IV, folic acid 1 mg IV, Ativan 2 mg IV Results: Right hip x-ray indicates no acute abnormalities Diagnosis: alcohol withdrawal Spoke with hospitalist, Dr. Du, who [facility] able to accept the patient for alcohol detox, as that is where pt's primary care provider is located. [facility] available beds. [id number] signed out to Dr. Valle. Tori: Patient was signed out to [facility] pending admission. Case was discussed with the on-call hospitalist Dr. Du at 0310 after [facility] informed us that they do not have any available beds. She did accept admission for alcohol withdrawal. <Avis Valle MD - Last Filed: 01/21/25 03:16> Differential Diagnosis Differential diagnosis: Likely alcohol withdrawal delirium, hypomagnesemia, alcohol intoxication and alcohol withdrawal seizure <Luz Sanford APRN - Last Filed: 01/21/25 03:07> Lab Data Attestation: I reviewed the patient's lab results. <Luz Sanford APRN - Last Filed: 01/21/25 03:07> Result diagrams: 01/21/25 01:09 01/21/25 01:09 <Luz Sanford APRN - Last Filed: 01/21/25 03:07> Labs: Lab Results 01/21/25 01/21/25 01/21/25 Range/Units 01:09 02:02 02:09 WBC 17.9 H (4.5-10.0) K/mm3 RBC 5.02 (4.6-6.20) M/mm3 Hgb 16.3 (14.0-18.0) g/dL Hct 49.0 (42.0-52.0) % MCV 97.6 (80-100) fl MCH 32.5 (26-34) pg MCHC 33.3 (32-36) g/dl RDW 12.7 (11.5-14.5) % Plt Count 234 D (150-375) k/mm3 MPV 10.7 H (7.4-10.4) fl Immature Gran % (Auto) 0.4 (0-0.5) % Neut % (Auto) 73.4 H (45.5-73.1) % Lymph % (Auto) 17.6 L (18.3-44.2) % [place] % (Auto) 7.8 (2.6-8.5) % Eos % (Auto) 0.2 (0-4.4) % Baso % (Auto) 0.6 (0.2-1.2) % Lymph # (Auto) 3.14 (0.9-3.2) K/mm3 [place] # (Auto) 1.4 H (0.1-0.6) K/mm3 Eos # (Auto) 0.0 (0-0.3) K/mm3 Baso # (Auto) 0.1 (0.0-0.1) K/mm3 Abs Immat Gran (auto) 0.07 H (0.00-0.031) K/mm3 Absolute Neuts (auto) 13.1 H (1.3-6.7) K/mm3 Absolute Nucleated RBC 0.000 (0.0-0.012) K/mm3 Nucleated RBC % 0.0 (0.0-0.2) % PT 12.9 (11.1-14.7) Seconds INR 1.0 Sodium 141 (137-145) mmol/L Potassium 4.1 (3.4-5.0) mmol/L Chloride 103 (98-107) mmol/L Carbon Dioxide 19 L (22-30) mmol/L Anion Gap 19 H (4-12) mmol/L BUN 9 (9-20) mg/dL Creatinine 0.76 (0.7-1.3) mg/dL Estim Creat Clear Calc 117 ml/min Estimated GFR > 60 (59 - ) Glucose 93 (65-110) mg/dL POC Capillary Glucose 115 H (65-105) mg/dl Calcium 9.2 (8.4-10.2) mg/dL Phosphorus 3.4 (2.5-4.5) mg/dL Magnesium 1.9 (1.6-2.3) mg/dL Total Bilirubin 0.4 (0.2-1.3) mg/dL AST 48 (17-59) U/L ALT 33 (6-50) U/L Alkaline Phosphatase 85 (38-126) U/L Total Protein 8.2 (6.3-8.2) g/dL Albumin 5.1 (3.5-5.1) g/dL Urine Color Yellow (Yellow) Urine Appearance Clear (Clear) Urine pH 5.5 (5.0-9.0) Ur Specific [place] 1.013 (1.001-1.035) Urine Protein 3+ H (Negative) mg/dL Urine Glucose (UA) Negative (Negative) mg/dL Urine Ketones 1+ H (Negative) mg/dL Ur Blood (Man) 1+ H (Negative) Urine Nitrate Negative (Negative) Urine Bilirubin Negative (Negative) Urine Urobilinogen 0.2 (<2.0) mg/dL Leukocyte Esterase Rfl Negative (Negative) BLANE/UL Urine RBC 0-2 (0-2) /hpf Urine WBC 0-5 (0-3) /hpf Ur Squamous Epith Cells None seen (Few) /hpf Urine Bacteria None seen /hpf Urine Casts 3-5 Urine Opiates Screen Negative (Negative) Urine Methadone Screen Negative (Negative) Ur Barbiturates Screen Negative (Negative) Ur Phencyclidine Scrn Negative (Negative) Ur Amphetamine Screen Negative (Negative) U Benzodiazepines Scrn Positive A (Negative) Urine Cocaine Screen Negative (Negative) U Cannabinoids Screen Positive A (Negative) Ethyl Alcohol 217 (<10) mg/dL <Luz Sanford, HEEL SANDER RUBBER - Last Filed: 01/21/25 03:07> Lab Results 01/21/25 01/21/25 01/21/25 Range/Units 01:09 02:02 02:09 WBC 17.9 H (4.5-10.0) K/mm3 RBC 5.02 (4.6-6.20) M/mm3 Hgb 16.3 (14.0-18.0) g/dL Hct 49.0 (42.0-52.0) % MCV 97.6 (80-100) fl MCH 32.5 (26-34) pg MCHC 33.3 (32-36) g/dl RDW 12.7 (11.5-14.5) % Plt Count 234 D (150-375) k/mm3 MPV 10.7 H (7.4-10.4) fl Immature Gran % (Auto) 0.4 (0-0.5) % Neut % (Auto) 73.4 H (45.5-73.1) % Lymph % (Auto) 17.6 L (18.3-44.2) % [place] % (Auto) 7.8 (2.6-8.5) % Eos % (Auto) 0.2 (0-4.4) % Baso % (Auto) 0.6 (0.2-1.2) % Lymph # (Auto) 3.14 (0.9-3.2) K/mm3 [place] # (Auto) 1.4 H (0.1-0.6) K/mm3 Eos # (Auto) 0.0 (0-0.3) K/mm3 Baso # (Auto) 0.1 (0.0-0.1) K/mm3 Abs Immat Gran (auto) 0.07 H (0.00-0.031) K/mm3 Absolute Neuts (auto) 13.1 H (1.3-6.7) K/mm3 Absolute Nucleated RBC 0.000 (0.0-0.012) K/mm3 Nucleated RBC % 0.0 (0.0-0.2) % PT 12.9 (11.1-14.7) Seconds INR 1.0 Sodium 141 (137-145) mmol/L Potassium 4.1 (3.4-5.0) mmol/L Chloride 103 (98-107) mmol/L Carbon Dioxide 19 L (22-30) mmol/L Anion Gap 19 H (4-12) mmol/L BUN 9 (9-20) mg/dL Creatinine 0.76 (0.7-1.3) mg/dL Estim Creat Clear Calc 117 ml/min Estimated GFR > 60 (59 - ) Glucose 93 (65-110) mg/dL POC Capillary Glucose 115 H (65-105) mg/dl Calcium 9.2 (8.4-10.2) mg/dL Phosphorus 3.4 (2.5-4.5) mg/dL Magnesium 1.9 (1.6-2.3) mg/dL Total Bilirubin 0.4 (0.2-1.3) mg/dL AST 48 (17-59) U/L ALT 33 (6-50) U/L Alkaline Phosphatase 85 (38-126) U/L Total Protein 8.2 (6.3-8.2) g/dL Albumin 5.1 (3.5-5.1) g/dL Urine Color Yellow (Yellow) Urine Appearance Clear (Clear) Urine pH 5.5 (5.0-9.0) Ur Specific [place] 1.013 (1.001-1.035) Urine Protein 3+ H (Negative) mg/dL Urine Glucose (UA) Negative (Negative) mg/dL Urine Ketones 1+ H (Negative) mg/dL Ur Blood (Man) 1+ H (Negative) Urine Nitrate Negative (Negative) Urine Bilirubin Negative (Negative) Urine Urobilinogen 0.2 (<2.0) mg/dL Leukocyte Esterase Rfl Negative (Negative) BLANE/UL Urine RBC 0-2 (0-2) /hpf Urine WBC 0-5 (0-3) /hpf Ur Squamous Epith Cells None seen (Few) /hpf Urine Bacteria None seen /hpf Urine Casts 3-5 Urine Opiates Screen Negative (Negative) Urine Methadone Screen Negative (Negative) Ur Barbiturates Screen Negative (Negative) Ur Phencyclidine Scrn Negative (Negative) Ur Amphetamine Screen Negative (Negative) U Benzodiazepines Scrn Positive A (Negative) Urine Cocaine Screen Negative (Negative) U Cannabinoids Screen Positive A (Negative) Ethyl Alcohol 217 (<10) mg/dL <Avis Valle MD - Last Filed: 01/21/25 03:16> Discharge Plan Discharge Clinical Impression: Alcohol withdrawal Qualifiers: Complication of substance-induced condition: uncomplicated Qualified Code(s): F10.230 - Alcohol dependence with withdrawal, uncomplicated <Luz Sanford APRN - Last Filed: 01/21/25 03:07> Patient Disposition: Still a Patient <Luz Sanford APRN - Last Filed: 01/21/25 03:07> Condition: Stable <Luz Sanford APRN - Last Filed: 01/21/25 03:07> Patient Language: Sudanese <Luz Sanford APRN - Last Filed: 01/21/25 03:07> Prescriptions: No Action quetiapine 400 mg Tablet 400 mg PO HS omeprazole 20 mg Capsule,Delayed Release(Dr/Ec) 20 mg PO DAILY thiamine HCl (vitamin B1) [Vitamin B-1] 100 mg Tablet 100 mg PO QAM Qty: 90 0RF lisinopril 20 mg tablet 20 mg PO DAILY magnesium oxide 400 mg (241.3 mg magnesium) Tablet 400 mg PO QAM Qty: 30 0RF metoprolol tartrate 25 mg Tablet 50 mg PO Q12HR Qty: 60 0RF trazodone 100 mg tablet 100 mg PO HS amlodipine 10 mg Tablet 10 mg PO DAILY Qty: 30 0RF folic acid 1 mg Tablet 1 mg PO DAILY Qty: 30 0RF chlordiazepoxide HCl 25 mg capsule See Rx Instructions .ROUTE .COMPLEX Qty: 24 0RF Rx Instructions: take 2 tab three times daily x 2 days then 1 tab three times daily x 2 days then 1 tab twice daily x 2 days then 1 tab daily x 2 days then stop <Luz Sanford APRN - Last Filed: 01/21/25 03:07> Follow-up/Referrals: [facility] [Primary Care Provider] - <Luz Sanford APRN - Last Filed: 01/21/25 03:07> Time of Disposition: 03:16 <Luz aSnford APRN - Last Filed: 01/21/25 03:07> 03:16 <Avis Valle MD - Last Filed: 01/21/25 03:16>
[2025-01-21] MEDS: SODIUM CHLORIDE 0.9% IV 1,000 ML 999 ML IV CONT ×2 (01:14→03:14)
[2025-01-21] MEDS: THIAMINE HCL 200 MG/2 ML VIAL 100 MG IV PUSH (01:14)
[2025-01-21] MEDS: FOLIC ACID 1 MG/0.2 ML INJ IV PUSH (01:14)
[2025-01-21] MEDS: MAGNESIUM SULF 1 GM/D5W 100 ML 1 GM/100 ML BAG IVPB (01:15)
[2025-01-21 01:16] LABS: Basophils Absolute Auto 0.1 K/mm3 (0.0-0.1); Basophils Percent Auto 0.6 % (0.2-1.2); Eosinophils Percent Auto 0.2 % (0-4.4); Hemoglobin 16.3 g/dL (14.0-18.0); Immature Granulocyte Absolute 0.07 K/mm3 (0.00-0.031); Immature Granulocyte Percent A 0.4 % (0-0.5); Lymphocytes Absolute Auto 3.14 K/mm3 (0.9-3.2); Lymphocytes Percent Auto 17.6 % (18.3-44.2); Mean Corpuscular HGB Conc 33.3 g/dl (32-36); Mean Corpuscular Hemoglobin 32.5 pg (26-34); Mean Corpuscular Volume 97.6 fl (80-100); Mean Platelet Volume 10.7 fl (7.4-10.4); Monocytes Absolute Auto 1.4 K/mm3 (0.1-0.6); Monocytes Percent Auto 7.8 % (2.6-8.5); Neutrophils Absolute Auto 13.1 K/mm3 (1.3-6.7); Neutrophils Percent Auto 73.4 % (45.5-73.1); Platelet Count Result 234 k/mm3 (150-375); Red Blood Count 5.02 M/mm3 (4.6-6.20); Red Cell Distribution Width 12.7 % (11.5-14.5); White Blood Count 17.9 K/mm3 (4.5-10.0)
[2025-01-21] MEDS: LORazepam INJ (*CRX) 2 MG/ML VIAL IV PUSH ×6 (01:19→20:02)
[2025-01-21 01:28] LABS: Alanine Aminotransferase 33 U/L (6-50); Albumin Level 5.1 g/dL (3.5-5.1); Alkaline Phosphatase 85 U/L (38-126); Anion Gap 19 mmol/L (4-12); Aspartate Amino Transferase 48 U/L (17-59); Bilirubin,Total 0.4 mg/dL (0.2-1.3); Blood Urea Nitrogen 9 mg/dL (9-20); Calcium 9.2 mg/dL (8.4-10.2); Carbon Dioxide 19 mmol/L (22-30); Chloride 103 mmol/L (98-107); Estimated CRCL calculation 117 ml/min; Estimated Glomerular Filt Rate > 60; Glucose 93 mg/dL (65-110); Magnesium 1.9 mg/dL (1.6-2.3); Phosphorus 3.4 mg/dL (2.5-4.5); Potassium 4.1 mmol/L (3.4-5.0); Sodium 141 mmol/L (137-145); Total Protein 8.2 g/dL (6.3-8.2)
[2025-01-21 01:51] LABS: Ethanol 217 mg/dL (<10)
[2025-01-21 02:12] LABS: Glucose Point of Care 115 mg/dl (65-105)
[2025-01-21 02:21] LABS: Prothrombin Time 12.9 Seconds (11.1-14.7)
[2025-01-21 02:41] LABS: Add Urine Microscopic? YES; Appearance Urine Clear (Clear); Bacteria Urine None Seen /hpf; Bilirubin Urine Negative (Negative); Blood Urine 1+ (Negative); Color Urine Yellow (Yellow); Glucose Urine UA Negative (Negative); Ketones Urine 1+ mg/dL (Negative); Leukocyte Esterase Ur Negative LEU/UL (Negative); Nitrate Urine Negative (Negative); Protein Urine 3+ mg/dL (Negative); RBC Urine 0-2 /hpf (0-2); Specific Grav Ur 1.013 (1.001-1.035); Squamous Epithelial Cell Urine None Seen /hpf (Few); Urobilinogen Urine 0.2 mg/dL (<2.0); WBC Urine 0-5 /hpf (0-3); pH Urine 5.5 (5.0-9.0)
[2025-01-21 02:55] LABS: Amphetamine Screen Urine Negative (Negative); Barbiturate Screen Urine Negative (Negative); Benzodiazepines Screen Urine Positive (Negative); Cannabinoid Screen Urine Positive (Negative); Cocaine Screen Urine Negative (Negative); Methadone Screen Urine Negative (Negative); Opiate Screen Urine Negative (Negative); Phencyclidine Screen Urine Negative (Negative)
--- NOTE | 2025-01-21 04:24 | ADMGEN ---
This patient, Bryce Sandhu, was admitted to IMU Room 203-01. Patient/family oriented to hospital policies and general routines including ID bracelet, bed and alarms, visiting hours, pain management, procedures, bathroom and other care routines, personal items, smoking policy, room service/diet, and visiting hours. Information on how to activate the Rapid Response Team has been discussed. Patient/Family are encouraged to report perceived risks to care and to ask questions if they do not understand what they are told or what they should do.
[2025-01-21] MEDS: chlordiazePOXIDE (*CRX) 25 MG CAPSULE PO ×4 (05:57→23:50)
--- NOTE | 2025-01-21 05:58 | PM.IMHP ---
H&P: HPI History of Present Illness Date/Time: 01/21/25 06:15 Chief Complaint: ?wants help detoxing? Narrative: 54-year-old male with a past medical history of essential hypertension, obesity, depression, PTSD, and anxiety who presented to the ER via EMS because he wanted help detoxing. The patient has had multiple hospitalizations for alcohol intoxication and alcohol withdrawal. The patient has had prior alcohol withdrawal seizures. He most recently went to inpatient rehab in October. He was in rehab for 1 month. He remains sober for 1 month before returning to drinking when he became anxious and stressed out. 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 He usually starts having withdrawal symptoms within 6 hours of stopping drinking. He usually drinks 1-2 5ths of vodka a day. Today/yesterday he had drink at least a 24 pack of [place]. When he arrived to the ER patient had a CIWA score of 16. He reports headache, nausea, at least moderate anxiety and tremors. He was noted to be mildly diaphoretic at the time of my evaluation. His CIWA score at the time my evaluation after he had already received Ativan was 16. Librium had already been ordered. The patient did receive 1 dose of Librium but given his history of rapidly escalating episodes of withdrawal in the past after discussion of risks and benefits the patient agreed to phenobarbital dosing. The patient did has been admitted to IMU and he received thiamin in the ER. Labs also demonstrated mild hypo magnesemia and mildly low CO2 and an elevated anion gap in the ER. He did receive 1 L fluid bolus in the ER I requested the patient receive a 2 L of bolus. He did receive 1 dose of IV thiamin in the ER. Patient was noted to have excoriation and erythema to his hip some buttocks. He stated that he thought it was due to falling. The however the appearance to the patient's skin seems more consistent with excoriation due to moisture or incontinence. The patient admits that he has been having issues with incontinence at home. Patient does smell strongly of urine. Review of Systems Review of Systems: 12 systems were reviewed with pertinent positives and negatives per HPI. Except as documented in the HPI, all other systems were reviewed and are negative. [facility] Past Medical History Medical History (Updated 01/21/25 @ 07:59 by Tawana Du DO) Obstructive sleep apnea Intolerant to CPAP Nicotine use Posttraumatic stress disorder Essential hypertension Depression Anxiety Alcohol withdrawal seizure Seasonal allergies Surgical History Surgical History History of surgical removal of ganglion cyst Right wrist. History of tonsillectomy and adenoidectomy History of umbilical hernia repair History of appendectomy History of tonsillectomy Family History Family History Father Heart disease Mother Heart disease Social History Social History (Updated 01/21/25 @ 07:52 by Tawana Du DO) Social History: Patient reports that he lives in his own apartment. He is on disability due to his PTSD. He still drinks alcohol heavily and is still a smoker. Surrogate medical decision maker: Bonniecynthia Sandhu, mother. Code status: Full code. Smoking packs per day: 1 Smoking cigarettes per day: 20.0 Years smoked: 25 Smoking pack-years: 25.00 Smoking status: Former smoker Tobacco type: cigarettes Smokeless tobacco user: chewing tobacco Second hand tobacco smoke exposure: Yes Smoking end date: 08/13/16 Alcohol intake: current Drinks per week: 140 Alcohol use details: 1/5 of vodka a day Substance use: current Substance use type: marijuana Do You Feel Safe in your Home?: Yes Lack of Transportation: No Lack of Food: Never True Current Housing: I Have Housing Concerned About Future Housing: No Difficulty Paying Gas/Electric Bills: No Difficulty Paying for Meds: No Currently Unemployed: No Education: Trade/Vocational Certificate Difficulty w/ Childcare or Family Care: No Additional living arrangements comments: Lives in [place]. 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 He is now on 90% disability through the [facility]. Spiritual care concerns: No Meds Home Medications and Allergies Home Medications ?Medication ?Instructions ?Recorded ?Confirmed ?Type quetiapine 400 mg tablet 400 mg PO HS 06/12/19 01/21/25 History omeprazole 20 mg capsule,delayed 20 mg PO DAILY 06/07/20 01/21/25 History release thiamine HCl (vitamin B1) 100 mg 100 mg PO QAM #90 tabs 06/09/20 01/21/25 Rx tablet (Vitamin B-1) metoprolol tartrate 25 mg tablet 50 mg (2 x 25 mg) PO Q12HR #60 tabs 06/17/20 01/21/25 Rx lisinopril 20 mg tablet 20 mg PO DAILY 10/03/20 01/21/25 History magnesium oxide 400 mg (241.3 mg 400 mg PO QAM #30 tabs 10/06/20 01/21/25 Rx magnesium) tablet trazodone 100 mg tablet 100 mg PO HS 07/22/24 01/21/25 History amlodipine 10 mg tablet 10 mg PO DAILY #30 tabs 07/26/24 01/21/25 Rx folic acid 1 mg tablet 1 mg PO DAILY #30 tabs 07/26/24 01/21/25 Rx carvedilol 25 mg tablet 25 mg PO Q12H 01/21/25 01/21/25 History Allergies Allergy/AdvReac Type Severity Reaction Status Date / Time Penicillins Allergy Unknown hive Verified 07/22/24 14:24 Vital Signs Vital Signs - 24 hr 01/21/25 00:22 01/21/25 02:39 01/21/25 03:01 Temperature 97.6 F Pulse Rate 124 H 127 H 109 H Respiratory Rate 14 14 14 Blood Pressure 179/121 H 158/94 H 160/98 H Pulse Oximetry 92 94 98 Oxygen Delivery Room Air 01/21/25 04:16 01/21/25 04:53 Temperature 98.9 F Pulse Rate 118 H Respiratory Rate 21 H Blood Pressure 149/81 H Pulse Oximetry 95 Oxygen Delivery Room Air Exam Narrative: Weight 95.2 kg BMI 30.1 Const: Other: Acutely ill-appearing, obese, poor hygiene HENMT: Other: Mucous membranes are moist, no oral pharyngeal erythema, crowded posterior oropharynx, no oral pharyngeal erythema, poor dentition Eyes: Other: Pupils are equal and reactive,, mild injected sclera, no scleral icterus Neck: Other: Large neck circumference, no lymphadenopathy Resp: Other: Clear to auscultation bilaterally, no increased work of breathing Cardio: Other: Sinus tachycardia, bounding bilateral radial pulses, 2+ bilateral pedal pulses, no murmur GI: Other: Soft, nontender, nondistended, positive bowel sounds : Other: Excoriation the skin in the groin and buttock region, skin blanches Skin: Other: Please see above, mildly diaphoretic Neuro: Other: Alert oriented x4, speech is clear, no facial asymmetry, moderate tremor of bilateral upper extremities at rest Extrem: Other: Severe tremor with hands extended Psych: Other: Anxious, cooperative, appropriate judgment insight H&P: Results Labs Labs: Laboratory Tests 01/21/25 01:09 01/21/25 01:09 01/21/25 01/21/25 01/21/25 01:09 02:02 02:09 WBC 17.9 H RBC 5.02 Hgb 16.3 Hct 49.0 MCV 97.6 MCH 32.5 MCHC 33.3 RDW 12.7 Plt Count 234 D MPV 10.7 H Immature Gran % (Auto) 0.4 Neut % (Auto) 73.4 H Lymph % (Auto) 17.6 L [place] % (Auto) 7.8 Eos % (Auto) 0.2 Baso % (Auto) 0.6 Lymph # (Auto) 3.14 [place] # (Auto) 1.4 H Eos # (Auto) 0.0 Baso # (Auto) 0.1 Abs Immat Gran (auto) 0.07 H Absolute Neuts (auto) 13.1 H Absolute Nucleated RBC 0.000 Nucleated RBC % 0.0 PT 12.9 INR 1.0 Sodium 141 Potassium 4.1 Chloride 103 Carbon Dioxide 19 L Anion Gap 19 H BUN 9 Creatinine 0.76 Estim Creat Clear Calc 117 Estimated GFR > 60 Glucose 93 POC Capillary Glucose 115 H Calcium 9.2 Phosphorus 3.4 Magnesium 1.9 Total Bilirubin 0.4 AST 48 ALT 33 Alkaline Phosphatase 85 Total Protein 8.2 Albumin 5.1 Urine Color Yellow Urine Appearance Clear Urine pH 5.5 Ur Specific [place] 1.013 Urine Protein 3+ H Urine Glucose (UA) Negative Urine Ketones 1+ H Ur Blood (Man) 1+ H Urine Nitrate Negative Urine Bilirubin Negative Urine Urobilinogen 0.2 Leukocyte Esterase Rfl Negative Urine RBC 0-2 Urine WBC 0-5 Ur Squamous Epith Cells None seen Urine Bacteria None seen Urine Casts 3-5 Urine Opiates Screen Negative Urine Methadone Screen Negative Ur Barbiturates Screen Negative Ur Phencyclidine Scrn Negative Ur Amphetamine Screen Negative U Benzodiazepines Scrn Positive A Urine Cocaine Screen Negative U Cannabinoids Screen Positive A Ethyl Alcohol 217 Impressions Hip X-Ray 01/21/25 05:27 Impression: No significant abnormality is seen. Chest X-Ray 01/21/25 05:29 Impression: Normal chest. Assessment and Plan Assessment and plan (1) Alcohol withdrawal: Qualifiers: Complication of substance-induced condition: uncomplicated Qualified Code(s): F10.230 - Alcohol dependence with withdrawal, uncomplicated Code(s): F10.239 - Alcohol dependence with withdrawal, unspecified Status: Acute (2) Anxiety and depression: Code(s): F41.9 - Anxiety disorder, unspecified; F32.9 - Major depressive disorder, single episode, unspecified Status: Acute (3) PTSD (post-traumatic stress disorder): Code(s): F43.10 - Post-traumatic stress disorder, unspecified Status: Acute (4) Alcohol intoxication: Code(s): F10.929 - Alcohol use, unspecified with intoxication, unspecified Status: Acute (5) Essential hypertension: Code(s): I10 - Essential (primary) hypertension Status: Acute (6) Hypomagnesemia: Code(s): E83.42 - Hypomagnesemia Status: Acute (7) Nicotine use: Code(s): Z72.0 - Tobacco use Status: Acute (8) Leukocytosis: Qualifiers: Leukocytosis type: leukemoid reaction Qualified Code(s): D72.823 - Leukemoid reaction Code(s): D72.829 - Elevated white blood cell count, unspecified Status: Acute Plan Patient is going through active alcohol withdrawal. His CIWA scores elevated in climbing. Will proceed with phenobarbital pushes. The patient responded well after 1st push of 130 mg. Will give 2nd pushes of phenobarbital. Librium is also been ordered is scheduled with Ativan 2 mg q.3 hours. CIWA scores greater than 15. Will check CIWA scores every 2 hours if CIWA score greater than 15 and every 4 hours if less than 15. Will provide thiamin and folic acid supplementation. 0 provide Zofran as needed for nausea. Patient does have sinus tachycardia which is not unusual for him when he is having episodes of withdrawal but I suspect there is also some component of volume depletion. Patient did have some ketones in his urine suggesting dehydration. I requested a 2 L of fluid be bolused in the ER. Will then continue maintenance fluids. Patient did receive magnesium and thiamine supplements in the ER. Will resume patient's home magnesium oxide supplement, thiamin and folic acid. Will resume patient's home lisinopril and metoprolol. The patient's med rec also has the patient on Coreg unfortunately we cannot verify the dosing as [facility]. cannot feel comfortable giving the patient 2 separate beta-blockers. Will continue with metoprolol and increase dose if needed as metoprolol should help more with the patient's sinus tachycardia. Patient does have some leukocytosis likely secondary to leukemoid reaction. Has no evidence of acute infection. Will repeat CBC and BMP, magnesium and phosphorus tomorrow a.m.. The patient has poor venous access and nursing staff was only able to get an a IV in the patient's foot. Will request vascular access nurse to place ultrasound-guided IV. 40 minute spent in critical care activities. Due to a high probability of clinically significant, life threatening deterioration, the patient required my highest level of preparedness to intervene emergently and I personally spent this critical care time directly and personally managing the patient. This critical care time included obtaining a history; examining the patient; pulse oximetry; ordering and review of studies; arranging urgent treatment with development of a management plan; evaluation of patient's response to treatment; frequent reassessment; and discussions with other providers. It was exclusive of separately billable procedures and treating other patients and teaching time. Please see Assessment and Plan section and the rest of the note for further information on patient assessment and treatment. Quality VTE Prophylaxis VTE prophylaxis: pharmacologic ordered (Lovenox 40 mg subQ daily.) Hospitalist MIPS Advance Care Plan I have confirmed that the patient's Advanced Care Plan is present, code status is documented, or surrogate decision maker is listed in patient medical record.: Yes Medication Reconciliation I have utilized all available resources to obtain, update and review the patients current medications (includes all prescriptions, OTC, herbals, cannabis, and nutritional supplements).: Yes
[2025-01-21] MEDS: PHENobarbitaL sodium (*CRX) 130 MG/ML VIAL IV PUSH ×2 (06:20→08:23)
[2025-01-21 06:28] LABS: Glucose Point of Care 82 mg/dl (65-105)
--- NOTE | 2025-01-21 06:54 | ECG_ITS ---
Test Date: 2025-01-21 08:08:33 Measurements Intervals [place] Rate: 75 P: 67 IA: 145 QRS: 13 QRSD: 96 T: 45 QT: 412 QTc: 462 Interpretive Statements SINUS RHYTHM INCOMPLETE RIGHT BUNDLE BRANCH BLOCK BORDERLINE ECG Compared to ECG 07/22/2024 10:39:35 HEART RATE HAS DECREASED Electronically Signed On 01-21-2025 08:18:14 CDT by Ed Kulkarni D.O.
--- OUTSIDE RECORDS SUMMARY | 2025-01-21 08:01 | XMS_ITS | CONTINUITY OF CARE DOCUMENT ---
Author Name scotty fajardo Address Unknown Organization [facility] Address [address] [place] [address] Phone [phone] Care Team Providers Care Soaking Pits Supervisor Name Role Phone Riki PEGUERO, Carlos Unavailable [phone] Carlos Lyn MD Unavailable [phone] INSURANCE PROVIDERS Payer name Policy type / Coverage type [place] red democrat ID [facility] [id number] [facility] Commercial insurance [id number]
--- OUTSIDE RECORDS SUMMARY | 2025-01-21 08:01 | XMS_ITS | Encounter Summary ---
Author Organization [facility] Healthcare Address [address] [place] [address] Care Team Providers Care Mobile Equipment Operator Name Role Phone Weston Mantilla DO Primary Care Provide r Kimberli Collins DPM Unavailable [phone] Encounter Details Date Type Department Care Team (Late st Contact Info) Description 12/26/2024 [facility] Post Discharge Follow up phone call [address] [address] Alannah Mack Social History Tobacco Use Types Packs/Day Years Used Date Smoking Tobacco: Former Cigarettes Smokeless Tobacco: Current Chew Alcohol Use Standard Drinks/Week Comments Yes 0 (1 standard drink = 0.6 oz pur e alcohol) [facility] Utilities Answer Date Recorded In the past 12 months has [employer] electric, gas, oil, or water company threatened [...] often do you attend chur ch or confucianist services? Never 12/18/2024 Do you belong to any clubs o r organizations such as yazidism groups, unions, fraternal or athletic groups, or [...] any time in the past 12 [facility], were you homeless or living in a correction (including now)? No 12/18/2024 Personal Safety Answer Date Recorded Have you ever been in or are you currently in a harmful physical or emotional relationship or is someone making you feel afraid or unsafe? 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
--- OUTSIDE RECORDS SUMMARY | 2025-01-21 08:01 | XMS_ITS | Continuity of Care Document ---
Author Organization [facility] Address [address] [address] [place] [address] Phone Care Team Providers Care Long Term Acute Care Registered Nurse Name Role Phone Cayetano Hardy MD Unavailable [...] Diagnoses Date Provider Providers Copied on Encounter [facility], [address], [place], [place], [id number], [place] tel:[phone] [facility] No Information [address] Anton[address]. [address], [place], [place], [id number] , [place]. tel:[phone] PREV VISIT, NEW, AGE 40-64 [facility], [address], [place], [place], [id number], [place] tel:[phone] [facility] Family Medicine PHysical (chief complaint) Encounter for general adult medical exam w abnormal findingsEssential (primary) hypertensionHyponat remiaLeukocytosisGe neralized Anxiety DisorderChest pain 9 Anton[address] Monte[address]. [address], [place], [place], [id number] , [place]. tel:[phone] Family History Family Member Type Diagnosis Age At Onset Brother Problem (finding) Alive and well Father Problem (finding) Alive and well Mother Problem (finding) Alive and well Payers Payer name Insurance type Covered green party ID Authoriza tion(s) No Information Social History [...] denies any crying spells. Pt states that [place] doctor does not want to give him [...]
--- OUTSIDE RECORDS SUMMARY | 2025-01-21 08:01 | XMS_ITS | Continuity of Care Document ---
Author Organization [facility] Address [address] [place] [address] Phone Care Team Providers Care Agricultural Pilot Name Role Phone Unavailable Unavailable Unavailable Procedures [...] Diagnoses Date Provider Providers Copied on Encounter [facility] , [address], [place], [place], [id number], tel:[phone] [facility] Encounter for dental exam and cleaning w abnormal findings No Information Referring Provider: Keyshawn Solis, [address], [place], [address]. tel:[phone] [facility] , [address], [place], [place], [address], tel:[phone] [facility] Encounter for dental exam and cleaning w abnormal findings No Information Family History Family Member Type Diagnosis Age At Onset No Information Payers Payer name Insurance type Covered constitution party ID Authoradama ijeoma(s) G - ATSU [facility] 09 Social History Type Description Quantity [...]
--- OUTSIDE RECORDS SUMMARY | 2025-01-21 08:02 | XMS_ITS | Clinical Summary ---
Author Organization [facility] [address] Address [address] [place] [address] Care Team Providers Care [employer] Wellness Director Name Role Phone Jose RafaelJose orozcocinthya Harjeet Primary Care Provide r Kimberli Collins DPM Unavailable [phone] Allergies Active Allergy Reactions Criticality Noted Date [...] Date Type Department Care Team Description 12/26/2024 [facility] Post Discharge Follow up phone call [address] [address] Alannah Mack 12/17/2024 8:47 AM CDT - 12/20/2024 1:09 PM CDT Hospital Encounter [address] [address] Jered Titus DO Novoselova, Victoria, MD Onaghise, Jude, MD Ogunremi, Olumide Omolulu, MD Burton, Jeffrey Ryan, DO Alcohol withdrawal syndrome with complication (HCC) (Primary Dx) Discharge Disposition: Discharge to home or self care 10/30/2024 7:40 AM CDT - 11/03/2024 5:58 PM CDT Hospital Encounter [address] [address] Jennifer Pisano MD Onaghise, Jude, MD Alcohol abuse (Primary Dx); Chest pain, unspecified type; Alcohol withdrawal syndrome without complication (HCC) Discharge Disposition: Discharge to home or self care 10/21/2024 7:16 PM CDT - 10/25/2024 12:30 PM CDT Hospital Encounter [address] [address] Grayson Donnelly MD Burton, Jeffrey Ryan, DO [...] drink = 0.6 oz pur e alcohol) voDynamaxx Mfga [facility] Utilities Answer Date Recorded In the past 12 months has [place], gas, oil, or water [employer] threatened to shut off services in your [...] often do you attend chur ch or catholic services? Never 12/18/2024 Do you belong to any clubs o r organizations such as synagogue groups, unions, fraternal or athletic groups, or [...] any time in the past 12 m [facility], were you homeless or living in a long term (including now)? No 12/18/2024 Personal Safety Answer Date Recorded Have you ever been in or are you currently in a harmful physical or emotional relationship or is someone making you feel afraid or unsafe? 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 Gender Identity Not on file Sexual Orientation [...] this topic Medical Devices Implanted Type Area Restaurant Server Device Identifier Shelf Expiration Date Model / Serial / Lot [employer] Enio 1.1mm 152mm Trocar Point 2 End Style 1 Wire Fixation [id number] - [id number] - [id number] Implanted:Qty: 2 on 09/14/2023 by Kimberli Collins DPM at [facility] Explanted:03/13 (Quantity not on file) Right: [employer]es [employer] 03/09/2032 [id number] / [id number] / [id number] Description:K-WIRE TO 3RD AN D 4TH TOES, [...] CONTRAST ED 12/17/2024 1 1:36 AM CDT RI CRITICAL CARE ILL/INJURED PATIENT INIT 30-74 MIN [...] CDT MAGNESIUM Routine 10/23/2024 6:01 AM CDT RI CRITICAL CARE ILL/INJURED PATIENT INIT 30-74 MIN [...] LAB BLOOD ORDERABLES Lanette bartholomew Result ETHAN [address] [address] Department [place] [address] * POCT glucose (12/20/2024 7:02 AM CDT) Glucose, POC 87 70 - 199 mg/dL POC Performer [id number] ETHAN Blood 12/20/2024 7:02 AM CDT 12/20/2024 7:02 AM CDT Chito Miller MD LAB POCT ORDERABLES - DEVICE Final Result Performing Organization Address [facility]/ZIP Co de Phone Number [facility] [address] [place] [address] * eGFR (12/20/2024 3:38 AM CDT) eGFR [...] ORDERABLES Lanette l Result Performing Organization Address City/[facility]/ZIP Co de Phone Number [facility] [address] [address] [place] [address] * (ABNORMAL) CBC without differential (12/20/2024 3:38 AM CDT) WBC 5.82 3.80 - 9.90 K/cumm Hgb 12.9(L) 13.0 - 17.5 g/dL [facility] Hct 39.0 38.9 - 50.3 % [facility] Plt 172 150 - 400 K/cumm [facility] MPV 11.3 9.1 - 12.3 fL [facility] RBC 3.97(L) 4.30 - 5.80 M/cumm [facility] MCV 98.2(H) 81.3 - 96.4 fL [facility] MCH 32.5 27.1 - 33.3 pg [facility] MCHC 33.1 32.3 - 35.7 g/dL [facility] RDW CV 12.4 11.1 - 14.9 % [facility] RDW SD 44.8 35.7 - 48.1 fL [facility] NRBC abs 0.00 0.00 - 0.01 K/cumm [facility] Blood 12/20/2024 3:38 AM CDT 12/20/2024 5:27 AM CDT Meghana Chance MD LAB BLOOD ORDERABLES Lanette l Result Performing Organization Address City/[facility] Co de Phone Number [facility] [address] [address] [facility] [employer] [place], [place] [id number] * Phosphorus (12/20/2024 3:38 AM CDT) Pathologist [facility] Phosphorus, pl 3.8 2.3 - 4.5 mg/dL Blood 12/20/2024 3:38 AM CDT 12/20/2024 5:25 AM CDT Meghana Chance MD LAB BLOOD ORDERABLES Lanette l Result Performing Organization Address City/[facility]/ZIP Co de Phone Number [facility] [address] [address] Department of [employer] [place], [place] [id number] * (ABNORMAL) Basic metabolic panel (12/20/2024 3:38 [...] CH Glucose 103 70 - 199 mg/dL [facility] Comment: Interpretive Data Fasting glucose >/= [...] 2022. Calcium 9.1 8.5 - 10.3 mg/dL [facility] Blood 12/20/2024 3:38 AM CDT 12/20/2024 5:25 AM CDT us Meghana Chance MD LAB BLOOD ORDERABLES Lanette l Result [facility] [address] [address] Department [place] [address] * POCT glucose (12/20/2024 12:51 AM CDT) Glucose, POC 109 70 - 199 mg/dL POC Performer [id number] [facility] Blood 12/20/2024 12:5 1 AM CDT 12/20/2024 12:51 AM CDT Chito Miller MD LAB POCT ORDERABLES - DEVICE Final Result ETHAN STAHL [address] [address] [facility] [place] [address] * POCT glucose (12/19/2024 9:18 PM CDT) Glucose, POC 96 70 - 199 mg/dL POC Performer [id number] [facility] Blood 12/19/2024 9:18 PM CDT 12/19/2024 9:18 PM CDT Chito Miller MD LAB POCT ORDERABLES - DEVICE Final Result Performing Organization Address [facility] Co de Phone Number ETHAN STAHL [address] [address] [facility] [place] [address] * POCT glucose (12/19/2024 4:44 PM CDT) Glucose, POC 89 70 - 199 mg/dL POC Performer [id number] [facility] Blood 12/19/2024 4:44 PM CDT 12/19/2024 4:44 PM CDT Chito Miller MD LAB POCT ORDERABLES - DEVICE Final Result Performing Organization Address [facility] Co de Phone Number ETHAN STA[facility] [address] [address] [facility] [place] [address] * POCT glucose (12/19/2024 11:44 AM CDT) Glucose, POC 96 70 - 199 mg/dL POC Performer [id number] [facility] Blood 12/19/2024 11:4 4 AM CDT 12/19/2024 11:44 AM CDT Chito Miller MD LAB POCT ORDERABLES - DEVICE Final Result Performing Organization Address City/[facility]/ZIP Co de Phone Number ETHAN STA[facility] [address] [address] Department [employer] [place], [place] [id number] * (ABNORMAL) Calcium, ionized, whole blood (12/19/2024 6:02 AM CDT) Ca, ionized, bld 4.06(L) 4.50 - 5.10 mg/dL Blood 12/19/2024 6:02 AM CDT 12/19/2024 6:08 AM CDT Meghana Chance MD LAB BLOOD ORDERABLES Lanette l Result Performing Organization Address [facility] Co de Phone Number ETHAN STA[facility] [address] [address] [place] [address] * eGFR (12/19/2024 6:02 AM CDT) eGFR [...] ORDERABLES Lanette l Result Performing Organization Address City/[facility]/ZIP Co de Phone Number ALFREDOAYDE [address] [address] [place] [address] * (ABNORMAL) CBC without differential (12/19/2024 6:02 AM CDT) Pathologist [facility] WBC 4.56 3.80 - 9.90 K/cumm Hgb 12.9(L) 13.0 - 17.5 g/dL [facility] Hct 39.2 38.9 - 50.3 % [facility] Plt 125(L) 150 - 400 K/cumm [facility] MPV 11.1 9.1 - 12.3 fL [facility] RBC 3.96(L) 4.30 - 5.80 M/cumm [facility] MCV 99.0(H) 81.3 - 96.4 fL [facility] MCH 32.6 27.1 - 33.3 pg [facility] MCHC 32.9 32.3 - 35.7 g/dL [facility] CH RDW CV 12.5 11.1 - 14.9 % [facility] RDW SD 45.5 35.7 - 48.1 fL [facility] NRBC abs 0.00 0.00 - 0.01 K/cumm [facility] Blood 12/19/2024 6:02 AM CDT 12/19/2024 6:10 AM CDT Meghana Chance MD LAB BLOOD ORDERABLES Lanette l Result [facility] [address] [address] [facility] [place] [address] * Phosphorus (12/19/2024 6:02 AM CDT) [facility] Phosphorus, pl 3.6 2.3 - 4.5 mg/dL Blood 12/19/2024 6:02 AM CDT 12/19/2024 6:10 AM CDT Meghana Chance MD LAB BLOOD ORDERABLES Lanette l Result [facility] [address] [address] Department [place] [address] * Magnesium (12/19/2024 6:02 AM CDT) Magnesium 1.8 1.4 - 2.5 mg/dL Blood 12/19/2024 6:02 AM CDT 12/19/2024 6:10 AM CDT Meghana Chance MD LAB BLOOD ORDERABLES Lanette l Result [facility] [address] [place] [address] * (ABNORMAL) Basic metabolic panel (12/19/2024 6:02 AM CDT) Pathologist [facility] Sodium 135 135 - 145 mmol/L Potassium, pl 3.1(L) 3.3 - 4.9 mmol/L [facility] Chloride 101 97 - 110 mmol/L [facility] CO2 24 22 - 32 mmol/L [facility] Anion gap 10 2 - 15 mmol/L [facility] BUN 4(L) 6 - 25 mg/dL [facility] Creatinine 0.64(L) 0.80 - 1.30 mg/dL [facility] Glucose 101 70 - 199 mg/dL [facility] Comment: Interpretive Data Fasting glucose >/= [...] 2022. Calcium 9.1 8.5 - 10.3 mg/dL [facility] Blood 12/19/2024 6:02 AM CDT 12/19/2024 6:10 AM CDT Meghana Chance MD LAB BLOOD ORDERABLES Lanette l Result [facility] [address] [place] [address] * POCT glucose (12/19/2024 5:01 AM CDT) Glucose, POC 117 70 - 199 mg/dL POC Performer [id number] [facility] Blood 12/19/2024 5:01 AM CDT 12/19/2024 5:01 AM CDT us John Barone MD LAB POCT ORDERABLES - DEVICE Fi nal Result Performing Organization Address [facility] Co de Phone Number ETHAN STA[facility] [address] [address] [place] [address] * POCT glucose (12/19/2024 12:35 AM CDT) Glucose, POC 173 70 - 199 mg/dL POC Performer [id number] [facility] Blood 12/19/2024 12:3 5 AM CDT 12/19/2024 12:35 AM CDT us John Barone MD LAB POCT ORDERABLES - DEVICE Fi nal Result Performing Organization Address [facility] Co de Phone Number ETHAN STA[facility] [address] [address] [place] [address] * POCT glucose (12/18/2024 9:42 PM CDT) Glucose, POC 107 70 - 199 mg/dL POC Performer [id number] [facility] Blood 12/18/2024 9:42 PM CDT 12/18/2024 9:42 PM CDT us John Barone MD LAB POCT ORDERABLES - DEVICE Fi nal Result Performing Organization Address [facility] Co de Phone Number [facility]AN STA[facility] [address] [address] [facility] [place] [address] * Critical Care (12/18/2024 6:54 AM CDT) Narrative Meghana Chance MD - 12/18/2024 6:54 AM CDT Meghana Chance MD 12/18/2024 1:38 PM Critical Care Performed by: Meghana Chnace MD Authorized by: Meghana Chance MD CRITICAL [...] plan with the patient's team and other medical/jury consultant staff. This time was in addition [...] LAB BLOOD ORDERABLES Lanette l Result ETHAN [address] [facility] Department of Laboratories [place] [phone] * eGFR (12/18/2024 6:46 AM CDT) eGFR [...] ORDERABLES Lanette l Result Performing Organization Address [facility] de Phone Number ETHAN STA[facility] [address] [place] [address] * Protime-INR (12/18/2024 6:46 AM [...] ORDERABLES Lanette l Result Performing Organization Address [facility] Co de Phone Number [facility]AN STA[facility] [address] [place] [address] * (ABNORMAL) CBC without differential (12/18/2024 6:46 AM CDT) WBC 5.46 3.80 - 9.90 K/cumm Hgb 13.8 13.0 - 17.5 g/dL ETHAN Hct 40.7 38.9 - 50.3 % ETHAN Plt 145(L) 150 - 400 K/cumm [facility] MPV 10.8 9.1 - 12.3 fL [facility] RBC 4.15(L) 4.30 - 5.80 M/cumm [facility] MCV 98.1(H) 81.3 - 96.4 fL [facility] MCH 33.3 27.1 - 33.3 pg [facility] MCHC 33.9 32.3 - 35.7 g/dL [facility] RDW CV 12.8 11.1 - 14.9 % [facility] RDW SD 45.6 35.7 - 48.1 fL [facility] NRBC abs 0.00 0.00 - 0.01 K/cumm [facility] Blood 12/18/2024 6:46 AM CDT 12/18/2024 7:03 AM CDT Meghana Chance MD LAB BLOOD ORDERABLES Lanette l Result Performing Organization Address [facility] Co de Phone Number [facility] [address] [address] [facility] [place] [address] * Phosphorus (12/18/2024 6:46 AM CDT) Phosphorus, pl 2.6 2.3 - 4.5 mg/dL Blood 12/18/2024 6:46 AM CDT 12/18/2024 7:03 AM CDT Meghana Chance MD LAB BLOOD ORDERABLES Lanette l Result Performing Organization Address [facility] Co de Phone Number [facility] [address] [address] [facility] [place] [address] * Magnesium (12/18/2024 6:46 AM CDT) Magnesium 2.4 1.4 - 2.5 mg/dL Blood 12/18/2024 6:46 AM CDT 12/18/2024 7:03 AM CDT Meghana Chance MD LAB BLOOD ORDERABLES Lanette l Result Performing Organization Address City/[facility] Co de Phone Number ETHAN STA[facility] [address] [address] Department [place] [address] * (ABNORMAL) Basic metabolic panel (12/18/2024 6:46 AM CDT) Sodium 136 135 - 145 mmol/L Potassium, pl 3.4 3.3 - 4.9 mmol/L [facility] Chloride 96(L) 97 - 110 mmol/L [facility] CO2 26 22 - 32 mmol/L [facility] Anion gap 14 2 - 15 mmol/L [facility] BUN 4(L) 6 - 25 mg/dL [facility] Creatinine 0.58(L) 0.80 - 1.30 mg/dL [facility] Comment:Icteric sample, test results may be affected. Glucose 89 70 - 199 mg/dL [facility] Comment: Interpretive Data Fasting glucose >/= [...] 2022. Calcium 8.8 8.5 - 10.3 mg/dL [facility] Blood 12/18/2024 6:46 AM CDT 12/18/2024 7:03 AM CDT Meghana Chance MD LAB BLOOD ORDERABLES Lanette l Result Performing Organization Address [facility] Co de Phone Number ETHAN STA[facility] [address] [address] Department [place] [address] * Critical Care (12/17/2024 10:03 PM CDT) [...] plan with the patient's team and other medical/jury consultant staff. This time was in addition to and separate from care provided by other practitioners on this day of service. us Derian Hinds METAL SPRAY OPERATOR IN CLINIC/BEDSIDE ORDERABL ES Final Result * Troponin T high-sensitivity 6-hour (12/17/2024 5:29 PM CDT) Pathologist [facility] Trop T hs 10 <=22 ng/L Comment: [...] BLOOD ORDERABLES F inal Result ETHAN STAHL [address] [address] Department [place] [address] * Sepsis Lactate w/ Reflex (12/17/2024 5:29 PM CDT) Pathologist [facility] Sepsis Lactate 1.8 0.7 - 2.0 mmol/L Blood 12/17/2024 5:29 PM CDT 12/17/2024 5:59 PM CDT us Jered Titus DO LAB BLOOD ORDERABLES Final Res ult ETHAN ST[facility] [address] [address] Department [place] [address] * (ABNORMAL) Calcium, ionized, whole blood (12/17/2024 5:29 PM CDT) Ca, ionized, bld 3.99(L) 4.50 - 5.10 mg/dL Blood 12/17/2024 5:29 PM CDT 12/17/2024 5:59 PM CDT Meghana Chance MD LAB BLOOD ORDERABLES Lanette l Result Performing Organization Address [facility] Co de Phone Number [facility]AN STA[facility] [address] [address] Department [place] [address] * eGFR (12/17/2024 5:29 PM CDT) eGFR [...] ORDERABLES Lanette l Result Performing Organization Address City/[facility]/ZIP Co de Phone Number ETHAN STA[facility] [address] [address] [facility] [place] [address] * (ABNORMAL) Phosphorus (12/17/2024 5:29 PM CDT) Phosphorus, pl 2.1(L) 2.3 - 4.5 mg/dL Blood 12/17/2024 5:29 PM CDT 12/17/2024 5:59 PM CDT Meghana Chance MD LAB BLOOD ORDERABLES Lanette l Result Performing Organization Address [facility] Co de Phone Number ALFREDOAYDE STAHL [address] [address] [place] [address] * (ABNORMAL) Magnesium (12/17/2024 5:29 PM CDT) Magnesium 1.1(L) 1.4 - 2.5 mg/dL Blood 12/17/2024 5:29 PM CDT 12/17/2024 5:59 PM CDT Meghana Chance MD LAB BLOOD ORDERABLES Lanette l Result Performing Organization Address City/[facility] Co de Phone Number ETHAN STA[facility] [address] [address] [place] [address] * (ABNORMAL) Basic metabolic panel (12/17/2024 5:29 [...] 2022. Calcium 8.8 8.5 - 10.3 mg/dL [facility] Blood 12/17/2024 5:29 PM CDT 12/17/2024 5:59 PM CDT Meghana Chance MD LAB BLOOD ORDERABLES Lanette l Result Performing Organization Address [facility] Co de Phone Number [facility] [address] [address] Department [place] [address] * ECG 12 lead (12/17/2024 4:45 PM CDT) 12/17/2024 4:45 PM CDT Narrative [facility] - 12/17/2024 6:24 PM CDT Vent Rate: 119 bpm RR Interval: 503 msec RI Interval: 149 msec QRS Duration: 81 msec QT Interval: 310 msec QTC Interval: 381 msec P-R-T Renovo: 56 - 38 - 44 degrees IMPRESSION: SINUS TACHYCARDIA ABNORMAL RHYTHM ECG Electronically Signed By: Dr. Adriana Hernandez [facility] Meghana Chance MD ECG ORDERABLES Final Res ult Performing Organization Address [facility] Co de Phone Number [facility] [employer] [facility] * POCT glucose (12/17/2024 3:36 PM CDT) [facility] Signature Glucose, POC 98 70 - 199 mg/dL POC Performer [id number] ETHAN Blood 12/17/2024 3:36 PM CDT 12/17/2024 3:36 PM CDT Meghana Chance MD LAB POCT ORDERABLES - DEV ICE Final Result ETHAN STAHL [address] [address] Department [place] [address] * Critical Care (12/17/2024 3:34 PM CDT) [...] plan with the ICU team and other medical/jury consultant staff, making frequent assessments and decisions [...] ORDERABLES Final Res ult Performing Organization Address [facility] Co de Phone Number ETHAN STA[facility] [address] [address] [facility] [place] [address] * Troponin T high-sensitivity 4-hour (12/17/2024 1:20 PM CDT) Trop T hs 10 <=22 ng/L Comment: Interpretive Data For further hscTnT resources including the diagnostic algorithm and an aid in interpretation, copy and paste this link: https://nrl.testcatalog.org/show/hsTrop Current Interpretive Data last revised 2020. Trop T hs delta 1 ng/L [facility] Trop T hs interp Insignificant [facility] Blood 12/17/2024 1:20 PM CDT 12/17/2024 1:29 PM CDT Christina Shepard MD LAB BLOOD ORDERABLES F inal Result Performing Organization Address [facility] de Phone Number ETHAN STA[facility] [address] [address] [place] [address] * (ABNORMAL) Beta-hydroxybutyrate (12/17/2024 1:20 PM CDT) Beta-Hydroxybut yrate 0.8(H) <=0.5 mmol/L Blood 12/17/2024 1:20 PM CDT 12/17/2024 1:48 PM CDT Jered Titus DO LAB BLOOD ORDERABLES Final Res ult Performing Organization Address [facility] Co de Phone Number EHTAN STAHL [address] [address] [place] [address] * Troponin T high-sensitivity 2-hour (12/17/2024 11:42 [...] ORDERABLES F inal Result Performing Organization Address City/[facility]/ZIP Co de Phone Number ETHAN STAHL [address] [address] Department [place] [address] * (ABNORMAL) Sepsis Lactate w/ Reflex (12/17/2024 11:42 AM CDT) Sepsis Lactate 6.9(C) 0.7 - 2.0 mmol/L Comment:Alert Lactate called to and read back by Kenzie Cordero at 12/17/2024 12:09:20 CDT by Kallie Sabillon. Blood 12/17/2024 11:4 2 AM CDT 12/17/2024 12:03 PM CDT Jered Titus DO LAB BLOOD ORDERABLES Final Res ult Performing Organization Address City/[facility]/ZIP Co de Phone Number ETHAN STA[facility] [address] [address] Department [place] [address] * CT Head WO Contrast (12/17/2024 11:36 [...] DO IMG CT PROCEDURES Final Result * RI CRITICAL CARE ILL/INJURED PATIENT INIT 30-74 MIN [...] ORDERABLES Edited Re sult - Final ETHAN [address] [address] Department [place] [address] * eGFR (12/17/2024 9:41 AM CDT) eGFR [...] DO LAB BLOOD ORDERABLES Final Res ult [facility] [address] [address] Department [place] [address] * (ABNORMAL) Differential, auto (12/17/2024 9:41 AM CDT) Neutrophil abs 9.85(H) 1.50 - 6.50 K/cumm Imm gran abs 0.06 0.00 - 0.10 K/cumm [facility] Lymphocyte abs 1.60 0.80 - 3.30 K/cumm [facility] Monocyte abs 0.73 0.20 - 0.80 K/cumm [facility] Eosinophil abs 0.05 0.00 - 0.50 K/cumm [facility] Basophil abs 0.09 0.00 - 0.10 K/cumm [facility] Neutrophil pct 79.6 % [facility] Comment: Interpretive Data Percent cell count reference ranges are not reported, since discordance with absolute values may lead to misinterpretation of CBC data. Current Interpretive Data was last revised on 2017. Imm gran pct 0.5 % [facility] Comment: Interpretive Data Percent cell count reference ranges are not reported, since discordance with absolute values may lead to misinterpretation of CBC data. Current Interpretive Data was last revised on 2017. Lymphocyte pct 12.9 % [facility] Comment: Interpretive Data Percent cell count reference ranges are not reported, since discordance with absolute values may lead to misinterpretation of CBC data. Current Interpretive Data was last revised on 2017. Monocyte pct 5.9 % [facility] Comment: Interpretive Data Percent cell count reference ranges are not reported, since discordance with absolute values may lead to misinterpretation of CBC data. Current Interpretive Data was last revised on 2017. Eosinophil pct 0.4 % [facility] Comment: Interpretive Data Percent cell count [...] BLOOD ORDERABLES Final Res ult ETHAN STAHL [address] [address] Department [place] [address] * Pro B-type natriuretic peptide (12/17/2024 9:41 [...] ORDERABLES Final Res ult Performing Organization Address [facility] Co de Phone Number ETHAN STAHL [address] [employer] [place] [address] * (ABNORMAL) CBC with auto differential (12/17/2024 9:41 AM CDT) WBC 12.38(H) 3.80 - 9.90 K/cumm Hgb 14.4 13.0 - 17.5 g/dL [facility] Hct 43.7 38.9 - 50.3 % [facility] Plt 175 150 - 400 K/cumm [facility] Comment:No clot detected in sample. MPV 10.9 9.1 - 12.3 fL [facility] RBC 4.42 4.30 - 5.80 M/cumm [facility] MCV 98.9(H) 81.3 - 96.4 fL [facility] MCH 32.6 27.1 - 33.3 pg [facility] MCHC 33.0 32.3 - 35.7 g/dL [facility] RDW CV 12.9 11.1 - 14.9 % [facility] RDW SD 46.7 35.7 - 48.1 fL [facility] NRBC abs 0.00 0.00 - 0.01 K/cumm [facility] Morphologic Screen Results confirmed by manual morphology review. [facility] Blood 12/17/2024 9:41 AM CDT 12/17/2024 9:48 AM CDT Jered Titus DO LAB BLOOD ORDERABLES Final Res ult Performing Organization Address [facility] Co de Phone Number ETHAN STAHL [address] Department [place] [address] * Magnesium (12/17/2024 9:41 AM CDT) Magnesium 1.5 1.4 - 2.5 mg/dL Blood 12/17/2024 9:41 AM CDT 12/17/2024 11:25 AM CDT Jered Titus LAB BLOOD ORDERABLES Final Res ult Performing Organization Address [facility] de Phone Number ETHAN STAHL [address] [facility] [place] [address] * (ABNORMAL) Ethanol (12/17/2024 9:41 AM CDT) Ethanol 173(H) <=10 mg/dL Comment: Interpretive Data Legal limit of intoxication > or = 80 mg/dL Levels > or = 400 mg/dL are potentially TOXIC. Current interpretive data was last revised on 2018. Blood 12/17/2024 9:41 AM CDT 12/17/2024 11:25 AM CDT Jered Gatesse LAB BLOOD ORDERABLES Final Res ult Performing Organization Address [facility] de Phone Number ETHAN STAHL [address] [facility] [place] [address] * (ABNORMAL) Comprehensive metabolic panel (12/17/2024 9:41 AM CDT) Sodium 145 135 - 145 mmol/L Potassium, pl 3.7 3.3 - 4.9 mmol/L [facility] Chloride 98 97 - 110 mmol/L [facility] CO2 25 22 - 32 mmol/L [facility] Anion gap 22(H) 2 - 15 mmol/L [facility] BUN 9 6 - 25 mg/dL [facility] Creatinine 0.74(L) 0.80 - 1.30 mg/dL [facility] Glucose 103 70 - 199 mg/dL [facility] Comment: Interpretive Data Fasting glucose >/= [...] ORDERABLES Final Res ult Performing Organization Address City/[facility] Co de Phone Number [facility] [address] Department [place] [address] * ECG 12 lead (12/17/2024 8:50 AM CDT) 12/17/2024 8:50 AM CDT Narrative [facility] - 12/17/2024 6:31 PM CDT Vent Rate: 145 bpm RR Interval: 413 msec RI Interval: 131 msec QRS Duration: 86 msec QT Interval: 290 msec QTC Interval: 373 msec P-R-T Renovo: 38 - -69 - 46 degrees IMPRESSION: SINUS TACHYCARDIA, POSSIBLE ATRIAL FLUTTER LOW QRS VOLTAGE IN PRECORDIAL LEADS [QRS DEFLECTION < 1.0 mV IN CHEST LEADS] PATTERN CONSISTENT WITH PULMONARY DISEASE Poor R-wave progression Electronically Signed By: Dr. Adriana Hernandez [facility] us Christina Shepard MD ECG ORDERABLES Final Result Performing Organization Address City/[facility] Co de Phone Number [facility] [employer] [facility] * eGFR (11/03/2024 7:22 AM CDT) Pathologist [facility] eGFR >90 >=60 mL/min/1. 73 m2 Comment: [...] NP LAB BLOOD ORDERABLES Final Result ETHAN [address] Department [place] [address] * (ABNORMAL) Differential, auto (11/03/2024 7:22 AM CDT) Pathologist [facility] Neutrophil abs 4.5 1.5 - 6.5 K/cumm Imm gran abs 0.1 0.0 - 0.1 K/cumm [facility] Lymphocyte abs 2.4 0.8 - 3.3 K/cumm [facility] Monocyte abs 1.0(H) 0.2 - 0.8 K/cumm [facility] Eosinophil abs 0.3 0.0 - 0.5 K/cumm [facility] Basophil abs 0.1 0.0 - 0.1 K/cumm [facility] Neutrophil pct 53.2 % [facility] Comment: Interpretive Data Percent cell count reference ranges are not reported, since discordance with absolute values may lead to misinterpretation of CBC data. Current Interpretive Data was last revised on 2017. Imm gran pct 0.8 % [facility] Comment: Interpretive Data Percent cell count reference ranges are not reported, since discordance with absolute values may lead to misinterpretation of CBC data. Current Interpretive Data was last revised on 2017. Lymphocyte pct 29.0 % [facility] Comment: Interpretive Data Percent cell count reference ranges are not reported, since discordance with absolute values may lead to misinterpretation of CBC data. Current Interpretive Data was last revised on 2017. Monocyte pct 11.7 % [facility] Comment: Interpretive Data Percent cell count reference ranges are not reported, since discordance with absolute values may lead to misinterpretation of CBC data. Current Interpretive Data was last revised on 2017. Eosinophil pct 3.9 % [facility] Comment: Interpretive Data Percent cell count reference ranges are not reported, since discordance with absolute values may lead to misinterpretation of CBC data. Current Interpretive Data was last revised on 2017. Basophil pct 1.4 % [facility] Comment: Interpretive Data Percent cell count reference ranges are not reported, since discordance with absolute values may lead to misinterpretation of CBC data. Current Interpretive Data was last revised on 2017. Blood 11/03/2024 7:22 AM CDT 11/03/2024 7:38 AM CDT Maria E Ayala NP LAB BLOOD ORDERABLES Final Result [facility] [address] Department [place] [address] * (ABNORMAL) CBC with auto differential (11/03/2024 7:22 AM CDT) WBC 8.4 3.8 - 9.9 K/cumm Hgb 13.7 13.0 - 17.5 g/dL [facility] Hct 44.4 38.9 - 50.3 % [facility] Plt 235 150 - 400 K/cumm [facility] MPV 10.4 9.1 - 12.3 fL [facility] RBC 4.19(L) 4.30 - 5.80 M/cumm [facility] MCV 106.0(H) 81.3 - 96.4 fL [facility] Comment:MCV delta possibly d ue to low sample volume. MCH 32.7 27.1 - 33.3 pg [facility] MCHC 30.9(L) 32.3 - 35.7 g/dL [facility] RDW CV 13.1 11.1 - 14.9 % [facility] RDW SD 51.0(H) 35.7 - 48.1 fL [facility] NRBC abs 0.00 0.00 - 0.01 K/cumm [facility] Blood 11/03/2024 7:22 AM CDT 11/03/2024 7:38 AM CDT Maria E Ayala NP LAB BLOOD ORDERABLES Final Result [facility] [address] Department [place] [address] * (ABNORMAL) Basic metabolic panel (11/03/2024 7:22 AM CDT) Sodium 137 135 - 145 mmol/L Potassium, pl 3.7 3.3 - 4.9 mmol/L [facility] Chloride 101 97 - 110 mmol/L [facility] CO2 23 22 - 32 mmol/L [facility] Anion gap 13 2 - 15 mmol/L [facility] BUN 8 6 - 25 mg/dL [facility] Creatinine 0.77(L) 0.80 - 1.30 mg/dL [facility] Glucose 91 70 - 199 mg/dL [facility] Comment: Interpretive Data Fasting glucose >/= [...] 11/03/2024 7:38 AM CDT Maria E Amorambar [employer] LAB BLOOD ORDERABLES Final Result ETHAN STA[facility] [address] Department [place] [address] * eGFR (11/02/2024 6:57 AM CDT) eGFR [...] LAB BLOOD ORDERABLES Final Result ETHAN STAHL [address] Department [place] [address] * Differential, auto (11/02/2024 6:57 AM CDT) Neutrophil abs 2.7 1.5 - 6.5 K/cumm Imm gran abs 0.0 0.0 - 0.1 K/cumm [facility] Lymphocyte abs 2.3 0.8 - 3.3 K/cumm [facility] Monocyte abs 0.8 0.2 - 0.8 K/cumm [facility] Eosinophil abs 0.3 0.0 - 0.5 K/cumm [facility] Basophil abs 0.1 0.0 - 0.1 K/cumm [facility] Neutrophil pct 43.1 % [facility] Comment: Interpretive Data Percent cell count reference ranges are not reported, since discordance with absolute values may lead to misinterpretation of CBC data. Current Interpretive Data was last revised on 2017. Imm gran pct 0.5 % [facility] Comment: Interpretive Data Percent cell count reference ranges are not reported, since discordance with absolute values may lead to misinterpretation of CBC data. Current Interpretive Data was last revised on 2017. Lymphocyte pct 36.6 % [facility] Comment: Interpretive Data Percent cell count reference ranges are not reported, since discordance with absolute values may lead to misinterpretation of CBC data. Current Interpretive Data was last revised on 2017. Monocyte pct 13.1 % [facility] Comment: Interpretive Data Percent cell count reference ranges are not reported, since discordance with absolute values may lead to misinterpretation of CBC data. Current Interpretive Data was last revised on 2017. Eosinophil pct 5.1 % [facility] Comment: Interpretive Data Percent cell count reference ranges are not reported, since discordance with absolute values may lead to misinterpretation of CBC data. Current Interpretive Data was last revised on 2017. Basophil pct 1.6 % [facility] Comment: Interpretive Data Percent cell count reference ranges are not reported, since discordance with absolute values may lead to misinterpretation of CBC data. Current Interpretive Data was last revised on 2017. Blood 11/02/2024 6:57 AM CDT 11/02/2024 7:16 AM CDT Maria E Ayala NP LAB BLOOD ORDERABLES Final Result ETHAN STA[facility] [address] [address] Department [place] [address] * (ABNORMAL) CBC with auto differential (11/02/2024 6:57 AM CDT) WBC 6.3 3.8 - 9.9 K/cumm Hgb 14.4 13.0 - 17.5 g/dL [facility] Hct 43.1 38.9 - 50.3 % [facility] Plt 276 150 - 400 K/cumm [facility] MPV 11.0 9.1 - 12.3 fL [facility] RBC 4.32 4.30 - 5.80 M/cumm [facility] MCV 99.8(H) 81.3 - 96.4 fL [facility] MCH 33.3 27.1 - 33.3 pg [facility] MCHC 33.4 32.3 - 35.7 g/dL [facility] RDW CV 12.8 11.1 - 14.9 % [facility] RDW SD 47.2 35.7 - 48.1 fL [facility] NRBC abs 0.00 0.00 - 0.01 K/cumm [facility] Blood 11/02/2024 6:57 AM CDT 11/02/2024 7:16 AM CDT Maria E Ayala NP LAB BLOOD ORDERABLES Final Result ETHAN STA[facility] [address] Department [place] [address] * Magnesium (11/02/2024 6:57 AM CDT) [facility] Magnesium 1.8 1.4 - 2.5 mg/dL Blood 11/02/2024 6:57 AM CDT 11/02/2024 7:14 AM CDT John Barone MD LAB BLOOD ORDERABLES Final Resu lt ETHAN STA[facility] [address] Department of Laboratories [place], [place] [id number] * Basic metabolic panel (11/02/2024 6:57 AM CDT) Sodium 139 135 - 145 mmol/L Potassium, pl 3.5 3.3 - 4.9 mmol/L [facility] Chloride 102 97 - 110 mmol/L [facility] CO2 25 22 - 32 mmol/L [facility] Anion gap 12 2 - 15 mmol/L [facility] BUN 8 6 - 25 mg/dL [facility] Creatinine 0.80 0.80 - 1.30 mg/dL [facility] Glucose 86 70 - 199 mg/dL [facility] Comment: Interpretive Data Fasting glucose >/= [...] 2022. Calcium 9.5 8.5 - 10.3 mg/dL [facility] Blood 11/02/2024 6:57 AM CDT 11/02/2024 7:14 AM CDT Maria E Ayala NP LAB BLOOD ORDERABLES Final Result [facility] [address] Department [place] [address] * eGFR (11/01/2024 5:58 AM CDT) Pathologist [facility] eGFR >90 >=60 mL/min/1. 73 m2 Comment: [...] NP LAB BLOOD ORDERABLES Final Result ETHAN [address] Department [place] [address] * Differential, auto (11/01/2024 5:58 AM CDT) Neutrophil abs 1.8 1.5 - 6.5 K/cumm Imm gran abs 0.0 0.0 - 0.1 K/cumm [facility] Lymphocyte abs 2.2 0.8 - 3.3 K/cumm [facility] Monocyte abs 0.8 0.2 - 0.8 K/cumm [facility] Eosinophil abs 0.2 0.0 - 0.5 K/cumm [facility] Basophil abs 0.1 0.0 - 0.1 K/cumm [facility] Neutrophil pct 35.7 % [facility] Comment: Interpretive Data Percent cell count reference ranges are not reported, since discordance with absolute values may lead to misinterpretation of CBC data. Current Interpretive Data was last revised on 2017. Imm gran pct 0.2 % [facility] Comment: Interpretive Data Percent cell count reference ranges are not reported, since discordance with absolute values may lead to misinterpretation of CBC data. Current Interpretive Data was last revised on 2017. Lymphocyte pct 42.9 % [facility] Comment: Interpretive Data Percent cell count reference ranges are not reported, since discordance with absolute values may lead to misinterpretation of CBC data. Current Interpretive Data was last revised on 2017. Monocyte pct 15.8 % [facility] Comment: Interpretive Data Percent cell count reference ranges are not reported, since discordance with absolute values may lead to misinterpretation of CBC data. Current Interpretive Data was last revised on 2017. Eosinophil pct 3.4 % [facility] Comment: Interpretive Data Percent cell count reference ranges are not reported, since discordance with absolute values may lead to misinterpretation of CBC data. Current Interpretive Data was last revised on 2017. Basophil pct 2.0 % [facility] Comment: Interpretive Data Percent cell count reference ranges are not reported, since discordance with absolute values may lead to misinterpretation of CBC data. Current Interpretive Data was last revised on 2017. Blood 11/01/2024 5:58 AM CDT 11/01/2024 6:13 AM CDT Maria E Ayala NP LAB BLOOD ORDERABLES Final Result [facility] [address] Department of Laboratories [place], [place] [id number] * (ABNORMAL) CBC with auto differential (11/01/2024 5:58 AM CDT) WBC 5.0 3.8 - 9.9 K/cumm Hgb 13.3 13.0 - 17.5 g/dL [facility] Hct 41.5 38.9 - 50.3 % [facility] Plt 203 150 - 400 K/cumm [facility] MPV 10.6 9.1 - 12.3 fL [facility] RBC 4.05(L) 4.30 - 5.80 M/cumm [facility] MCV 102.5(H) 81.3 - 96.4 fL [facility] MCH 32.8 27.1 - 33.3 pg [facility] MCHC 32.0(L) 32.3 - 35.7 g/dL [facility] RDW CV 13.0 11.1 - 14.9 % [facility] RDW SD 49.5(H) 35.7 - 48.1 fL [facility] NRBC abs 0.00 0.00 - 0.01 K/cumm [facility] Blood 11/01/2024 5:58 AM CDT 11/01/2024 6:13 AM CDT Maria E Ayala NP LAB BLOOD ORDERABLES Final Result Performing Organization Address City/[facility]/ZIP Co de Phone Number [facility] [address] [address] Department [place] [address] * Magnesium (11/01/2024 5:58 AM CDT) Pathologist [facility] Magnesium 1.7 1.4 - 2.5 mg/dL Blood 11/01/2024 5:58 AM CDT 11/01/2024 6:12 AM CDT John Barone MD LAB BLOOD ORDERABLES Final Resu lt Performing Organization Address [facility] Co de Phone Number [facility] [address] [address] Department [place] [address] * (ABNORMAL) Basic metabolic panel (11/01/2024 5:58 AM CDT) Pathologist [facility] Sodium 140 135 - 145 mmol/L Potassium, pl 3.7 3.3 - 4.9 mmol/L [facility] Chloride 106 97 - 110 mmol/L [facility] CO2 20(L) 22 - 32 mmol/L [facility] Anion gap 14 2 - 15 mmol/L [facility] BUN 6 6 - 25 mg/dL [facility] Creatinine 0.63(L) 0.80 - 1.30 mg/dL [facility] Glucose 98 70 - 199 mg/dL [facility] Comment: Interpretive Data Fasting glucose >/= [...] BLOOD ORDERABLES Final Result Performing Organization Address [facility] Co de Phone Number ETHAN STAHL [address] [employer] [place], [place] [id number] * eGFR (10/31/2024 4:16 AM CDT) eGFR [...] BLOOD ORDERABLES Final Result Performing Organization Address [facility]/ZIP Co de Phone Number ETHAN STAHL [address] [address] Department [place] [address] * (ABNORMAL) Differential, auto (10/31/2024 4:16 AM CDT) Neutrophil abs 2.3 1.5 - 6.5 K/cumm Imm gran abs 0.0 0.0 - 0.1 K/cumm [facility] Lymphocyte abs 2.7 0.8 - 3.3 K/cumm [facility] Monocyte abs 0.9(H) 0.2 - 0.8 K/cumm [facility] Eosinophil abs 0.1 0.0 - 0.5 K/cumm [facility] Basophil abs 0.1 0.0 - 0.1 K/cumm [facility] Neutrophil pct 37.7 % [facility] Comment: Interpretive Data Percent cell count reference ranges are not reported, since discordance with absolute values may lead to misinterpretation of CBC data. Current Interpretive Data was last revised on 2017. Imm gran pct 0.5 % [facility] Comment: Interpretive Data Percent cell count reference ranges are not reported, since discordance with absolute values may lead to misinterpretation of CBC data. Current Interpretive Data was last revised on 2017. Lymphocyte pct 44.2 % [facility] Comment: Interpretive Data Percent cell count reference ranges are not reported, since discordance with absolute values may lead to misinterpretation of CBC data. Current Interpretive Data was last revised on 2017. Monocyte pct 14.0 % [facility] Comment: Interpretive Data Percent cell count reference ranges are not reported, since discordance with absolute values may lead to misinterpretation of CBC data. Current Interpretive Data was last revised on 2017. Eosinophil pct 2.3 % [facility] Comment: Interpretive Data Percent cell count [...] LAB BLOOD ORDERABLES Final Result ETHAN STA[facility] [address] Department [place] [address] * (ABNORMAL) CBC with auto [...] Result ETHAN [address] Department [place] [address] * (ABNORMAL) Basic metabolic panel (10/31/2024 4:16 AM CDT) Pathologist [facility] Sodium 143 135 - 145 mmol/L Potassium, pl 3.1(L) 3.3 - 4.9 mmol/L [facility] Chloride 105 97 - 110 mmol/L [facility] CO2 26 22 - 32 mmol/L [facility] Anion gap 12 2 - 15 mmol/L [facility] BUN 13 6 - 25 mg/dL [facility] Creatinine 0.57(L) 0.80 - 1.30 mg/dL [facility] Glucose 85 70 - 199 mg/dL [facility] Comment: Interpretive Data Fasting glucose >/= [...] 2022. Calcium 8.2(L) 8.5 - 10.3 mg/dL [facility] Blood 10/31/2024 4:16 AM CDT 10/31/2024 4:32 AM CDT Maria E Ayala NP LAB BLOOD ORDERABLES Final Result ETHAN [address] [place] [address] * Troponin T high-sensitivity 2-hour (10/30/2024 9:51 AM CDT) Trop T hs 14 <=22 ng/L Comment: Interpretive Data For further hscTnT resources including the diagnostic algorithm and an aid in interpretation, copy and paste this link: https://nrl.testcatalog.org/show/hsTrop Current Interpretive Data last revised 2020. Trop T hs delta 6 ng/L [facility] Trop T hs interp Equivocal [facility] Blood 10/30/2024 9:51 AM CDT 10/30/2024 9:59 AM CDT Jennifer Pisano MD LAB BLOOD ORDERABLES Fi nal Result [facility] [address] [facility] [place] [address] * Urinalysis reflex to microscopic and culture [...] tendency for uric acid stone formation. Source: [facility] Current Interpretive Data was last revised on [...] Jennifer Pisano MD LAB MICROBIOLOGY - [facility] ORDERABLES Final Result [facility] [address] [place] [address] * (ABNORMAL) Drugs of Abuse Screen, Urine [...] 2023. Cocaine, ur Not Detected CutOff 150ng/mL [facility] Comment: Interpretive Data - Cocaine: Samples containing greater than 150 ng/mL benzoylecgonine or other cross- reacting compounds are reported as positive. False positive and false negative results are possible. Confirmatory testing required for definitive results. Current Interpretive Data was last reviewed 2023. Fentanyl, Ur Not Detected CutOff 5 ng/mL [facility] Comment: Interpretive Data - Fentanyl: Samples [...] Pisano MD LAB URINE ORDERABLES nal Result [facility] [address] Department [place] [address] * XR Chest 1 Vw Portable (10/30/2024 [...] LAB BLOOD ORDERABLES Fi nal Result ETHAN [address] [address] Department [place] [address] * eGFR (10/30/2024 7:53 AM [...] CDT Jennifer Pisano MD LAB BLOOD ORDERABLES On license of [facility] Result [facility] [address] [address] Department [place] [address] * Differential, auto (10/30/2024 7:53 AM CDT) Neutrophil abs 3.2 1.5 - 6.5 K/cumm Imm gran abs 0.1 0.0 - 0.1 K/cumm [facility] Lymphocyte abs 2.8 0.8 - 3.3 K/cumm [facility] Monocyte abs 0.8 0.2 - 0.8 K/cumm [facility] Eosinophil abs 0.1 0.0 - 0.5 K/cumm [facility] Basophil abs 0.1 0.0 - 0.1 K/cumm [facility] Neutrophil pct 45.0 % [facility] Comment: Interpretive Data Percent cell count reference ranges are not reported, since discordance with absolute values may lead to misinterpretation of CBC data. Current Interpretive Data was last revised on 2017. Imm gran pct 1.0 % [facility] Comment: Interpretive Data Percent cell count reference ranges are not reported, since discordance with absolute values may lead to misinterpretation of CBC data. Current Interpretive Data was last revised on 2017. Lymphocyte pct 39.8 % [facility] Comment: Interpretive Data Percent cell count reference ranges are not reported, since discordance with absolute values may lead to misinterpretation of CBC data. Current Interpretive Data was last revised on 2017. Monocyte pct 11.0 % [facility] Comment: Interpretive Data Percent cell count reference ranges are not reported, since discordance with absolute values may lead to misinterpretation of CBC data. Current Interpretive Data was last revised on 2017. Eosinophil pct 1.9 % [facility] Comment: Interpretive Data Percent cell count reference ranges are not reported, since discordance with absolute values may lead to misinterpretation of CBC data. Current Interpretive Data was last revised on 2017. Basophil pct 1.3 % [facility] Comment: Interpretive Data Percent cell count reference ranges are not reported, since discordance with absolute values may lead to misinterpretation of CBC data. Current Interpretive Data was last revised on 2017. Blood 10/30/2024 7:53 AM CDT 10/30/2024 7:53 AM CDT us Jennifer Pisano MD LAB BLOOD ORDERABLES On license of [facility] Result [facility] [address] [address] Department [place] [address] * (ABNORMAL) CBC with auto differential (10/30/2024 7:53 AM CDT) WBC 7.0 3.8 - 9.9 K/cumm Hgb 13.9 13.0 - 17.5 g/dL [facility] Hct 43.6 38.9 - 50.3 % [facility] Plt 279 150 - 400 K/cumm [facility] MPV 10.1 9.1 - 12.3 fL [facility] RBC 4.30 4.30 - 5.80 M/cumm [facility] MCV 101.4(H) 81.3 - 96.4 fL [facility] MCH 32.3 27.1 - 33.3 pg [facility] MCHC 31.9(L) 32.3 - 35.7 g/dL [facility] CV 13.6 11.1 - 14.9 % [facility] RDW SD 50.8(H) 35.7 - 48.1 fL [facility] NRBC abs 0.00 0.00 - 0.01 K/cumm [facility] Blood Venous blood specimen / Unknown 10/30/2024 7:53 AM CDT 10/30/2024 7:53 AM CDT Jennifer Pisano MD LAB BLOOD ORDERABLES Fi nal Result Performing Organization Address [facility] de Phone Number ETHAN [address] [address] Department [place] [address] * (ABNORMAL) Ethanol (10/30/2024 7:53 AM CDT) Ethanol 233(H) <=10 mg/dL Comment: Interpretive Data Legal limit of intoxication > or = 80 mg/dL Levels > or = 400 mg/dL are potentially TOXIC. Current interpretive data was last revised on 2018. Blood 10/30/2024 7:53 AM CDT 10/30/2024 7:53 AM CDT Jennifer Pisano MD LAB BLOOD ORDERABLES Fi nal Result Performing Organization Address [facility] de Phone Number ETHAN [phone] [address] Department [place] [address] * (ABNORMAL) Comprehensive metabolic panel (10/30/2024 7:53 [...] ORDERABLES Fi nal Result Performing Organization Address [facility] de Phone Number [facility] [address] [facility] Department [place] [address] * ECG 12 lead (10/30/2024 7:52 AM CDT) 10/30/2024 7:52 AM CDT Narrative [facility] - 10/30/2024 10:22 PM CDT Vent Rate: 108 bpm RR Interval: 553 msec RI Interval: 162 msec QRS Duration: 91 msec QT Interval: 323 msec QTC Interval: 386 msec P-R-T Renovo: 49 - -28 - 39 degrees IMPRESSION: SINUS TACHYCARDIA Electronically Signed By: Mitch Schaefer MD, [facility] Jennifer Pisano MD ECG ORDERABLES Final R esult Performing Organization Address City/[facility] Co de Phone Number [facility] * eGFR (10/25/2024 3:33 AM CDT) eGFR [...] BLOOD ORDERABLES Final Result Performing Organization Address [facility] de Phone Number ETHAN [phone] [address] Department [place] [address] * Magnesium (10/25/2024 3:33 AM CDT) Magnesium 1.6 1.4 - 2.5 mg/dL Blood 10/25/2024 3:33 AM CDT 10/25/2024 3:37 AM CDT Chuy Cabral MD LAB BLOOD ORDERABLES Final Result Performing Organization Address [facility] [place] [address] [address] Department [place] [address] * (ABNORMAL) Basic metabolic panel (10/25/2024 3:33 AM CDT) Sodium 141 135 - 145 mmol/L Potassium, pl 3.8 3.3 - 4.9 mmol/L [facility] Chloride 104 97 - 110 mmol/L [facility] CO2 26 22 - 32 mmol/L [facility] Anion gap 11 2 - 15 mmol/L [facility] BUN 6 6 - 25 mg/dL [facility] Creatinine 0.68(L) 0.80 - 1.30 mg/dL [facility] Glucose 87 70 - 199 mg/dL [facility] Comment: Interpretive Data Fasting glucose >/= [...] 2022. Calcium 9.2 8.5 - 10.3 mg/dL [facility] Blood 10/25/2024 3:33 AM CDT 10/25/2024 3:37 AM CDT Chuy Cabral MD LAB BLOOD ORDERABLES Final Result [facility] [address] [address] Department [place] [address] * eGFR (10/24/2024 5:45 AM CDT) eGFR [...] BLOOD ORDERABLES Final Result Performing Organization Address City/[facility]/ZIP Co de Phone Number [facility] [address] [address] [place] [address] * Magnesium (10/24/2024 5:45 AM CDT) Pathologist [facility] Magnesium 1.7 1.4 - 2.5 mg/dL Blood 10/24/2024 5:45 AM CDT 10/24/2024 5:49 AM CDT Chuy Cabral MD LAB BLOOD ORDERABLES Final Result Performing Organization Address [facility] Co de Phone Number [facility] [address] [address] Department [place] [address] * (ABNORMAL) Basic metabolic panel (10/24/2024 5:45 AM CDT) Sodium 143 135 - 145 mmol/L Potassium, pl 4.2 3.3 - 4.9 mmol/L [facility] Chloride 105 97 - 110 mmol/L [facility] CO2 28 22 - 32 mmol/L [facility] Anion gap 10 2 - 15 mmol/L [facility] BUN 4(L) 6 - 25 mg/dL [facility] Creatinine 0.79(L) 0.80 - 1.30 mg/dL [facility] Glucose 91 70 - 199 mg/dL [facility] Comment: Interpretive Data Fasting glucose >/= [...] MD LAB BLOOD ORDERABLES Final Result ETHAN TSAHL [address] [address] Department [place] [address] * eGFR (10/23/2024 6:01 AM CDT) eGFR [...] LAB BLOOD ORDERABLES Final Result [facility] STAHL [address] [address] [facility] [place] [address] * Magnesium (10/23/2024 6:01 AM CDT) Pathologist [facility] Magnesium 1.6 1.4 - 2.5 mg/dL Blood 10/23/2024 6:01 AM CDT 10/23/2024 6:08 AM CDT Chuy Cabral MD LAB BLOOD ORDERABLES Final Result Performing Organization Address [facility] Co de Phone Number ETHAN STAHL [address] [address] [facility] [place] [address] * (ABNORMAL) Basic metabolic panel (10/23/2024 6:01 AM CDT) Pathologist [facility] Sodium 138 135 - 145 mmol/L Potassium, pl 3.0(L) 3.3 - 4.9 mmol/L [facility] Chloride 99 97 - 110 mmol/L [facility] CO2 29 22 - 32 mmol/L [facility] Anion gap 10 2 - 15 mmol/L [facility] BUN 5(L) 6 - 25 mg/dL [facility] Creatinine 0.67(L) 0.80 - 1.30 mg/dL [facility] Glucose 106 70 - 199 mg/dL [facility] Comment: Interpretive Data Fasting glucose >/= [...] 2022. Calcium 8.9 8.5 - 10.3 mg/dL [facility] Blood 10/23/2024 6:01 AM CDT 10/23/2024 6:08 AM CDT us Chuy Cabral MD LAB BLOOD ORDERABLES Final Result [facility]AN STA[facility] [address] [address] Department [place] [address] * RI CRITICAL CARE ILL/INJURED PATIENT INIT 30-74 MIN [...] tendency for uric acid stone formation. Source: [facility] Current Interpretive Data was last revised on [...] for microscopic UA and culture not met. [facility] Urine 10/21/2024 9:32 PM CDT 10/21/2024 9:35 PM CDT Grayson Donnelly MD LAB MICROBIOLOGY - [facility] ORDERABLES Final Result [facility] [address] [address] Department [place] [address] * (ABNORMAL) Drugs of Abuse Screen, Urine [...] Cannabinoids, ur Not Detected CutOff 50 ng/mL [facility] Comment: Interpretive Data - Cannabinoids: Samples containing greater than 50 ng/mL delta-9 THC -COOH or other cross- reacting compounds are reported as positive. False positive and false negative results are possible. Confirmatory testing required for definitive results. Current Interpretive Data was last reviewed 2023. Cocaine, ur Not Detected CutOff 150ng/mL [facility] Comment: Interpretive Data - Cocaine: Samples containing greater than 150 ng/mL benzoylecgonine or other cross- reacting compounds are reported as positive. False positive and false negative results are possible. Confirmatory testing required for definitive results. Current Interpretive Data was last reviewed 2023. Fentanyl, Ur Not Detected CutOff 5 ng/mL [facility] Comment: Interpretive Data - Fentanyl: Samples containing greater than 5 ng/mL norfentanyl, fentanyl, or other cross-reacting fentanyl compounds are reported as positive. False positive and false negative results are possible. Confirmatory testing required for definitive results. Current Interpretive Data was last reviewed 2023. Methadone, ur Not Detected CutOff 300ng/mL [facility] Comment: Interpretive Data - Methadone: Samples containing greater than 300 ng/mL d,l-methadone or other cross-reacting compounds are reported as positive. False positive and false negative results are possible. Confirmatory testing required for definitive results. Current Interpretive Data was last reviewed 2023. Opiates, ur Not Detected CutOff 300ng/mL [facility] Comment: Interpretive Data - Opiates: Samples containing greater than 300 ng/mL morphine or other cross-reacting compounds are reported as positive. False positive and false negative results are possible. Confirmatory testing required for definitive results. Current Interpretive Data was last reviewed 2023. Oxycodone, ur Not Detected CutOff 100ng/mL [facility] Comment: Interpretive Data - Oxycodone: Samples containing [...] LAB URINE ORDERABLES Fin al Result ETHAN [address] [address] Department of Laboratories [place], [place] [id number] * CT Head Cervical Face WO Contrast (10/21/2024 8:26 PM CDT) Anatomical Region Laterality Modality Head and Neck N/A Computed Tomogra phy 10/21/2024 8:17 PM CDT Impressions 10/22/2024 7:33 AM CDT No acute intracranial change. Mild chronic sinus changes No acute cervical change. Stat report by [facility] Electronically signed by: Kelton Recio M.D. [...] No acute fracture. Normal alignment. There are xltx-rb-[id number] endplate and uncovertebral degenerative changes seen at [...] No acute fracture. Normal alignment. There are ujvt-ye-dhzgnedh endplate and uncovertebral degenerative changes seen at multiple levels. No significant disc bulge or herniation. No severe spinal canal stenosis. Lungs: Lung apices are normal. Soft tissues: Unremarkable. IMPRESSION: No acute intracranial change. Mild chronic sinus changes No acute cervical change. Stat report by [facility] Electronically signed by: Kelton Recio M.D. us [...] MD LAB BLOOD ORDERABLES Fin al Result [facility] [address] [address] Department [place] [address] * (ABNORMAL) Differential, auto (10/21/2024 8:02 PM CDT) Pathologist [facility] Neutrophil abs 4.2 1.5 - 6.5 K/cumm Imm gran abs 0.0 0.0 - 0.1 K/cumm [facility] Lymphocyte abs 3.0 0.8 - 3.3 K/cumm [facility] Monocyte abs 0.9(H) 0.2 - 0.8 K/cumm [facility] Eosinophil abs 0.0 0.0 - 0.5 K/cumm [facility] Basophil abs 0.1 0.0 - 0.1 K/cumm [facility] Neutrophil pct 51.2 % [facility] Comment: Interpretive Data Percent cell count [...] MD LAB BLOOD ORDERABLES Fin al Result [facility] [address] [address] Department [place] [address] * (ABNORMAL) CBC with auto differential (10/21/2024 8:02 PM CDT) WBC 8.1 3.8 - 9.9 K/cumm Hgb 16.3 13.0 - 17.5 g/dL [facility] Hct 49.6 38.9 - 50.3 % [facility] Plt 348 150 - 400 K/cumm [facility] MPV 9.5 9.1 - 12.3 fL [facility] RBC 5.01 4.30 - 5.80 M/cumm [facility] MCV 99.0(H) 81.3 - 96.4 fL [facility] MCH 32.5 27.1 - 33.3 pg [facility] MCHC 32.9 32.3 - 35.7 g/dL [facility] RDW CV 13.0 11.1 - 14.9 % [facility] RDW SD 47.5 35.7 - 48.1 fL [facility] NRBC abs 0.00 0.00 - 0.01 K/cumm [facility] Blood Venous blood specimen / Unknown 10/21/2024 8:02 PM CDT 10/21/2024 8:02 PM CDT Grayson Donnelly MD LAB BLOOD ORDERABLES Fin al Result Performing Organization Address City/[facility] Co de Phone Number [facility] [address] [address] [facility] [place] [address] * Ammonia (10/21/2024 8:02 PM CDT) Ammonia 30 <=50 mcmol/L Blood 10/21/2024 8:02 PM CDT 10/21/2024 8:02 PM CDT Grayson Donnelly MD LAB BLOOD ORDERABLES Fin al Result Performing Organization Address [facility] Co de Phone Number [facility] [address] [place] [address] * (ABNORMAL) Ethanol (10/21/2024 8:02 PM CDT) [...] BLOOD [place] [address] [address] Department [place] [address] * (ABNORMAL) Comprehensive metabolic panel (10/21/2024 8:02 [...] BLOOD ORDERABLES Fin al Result [facility] STA[facility] [address] [address] Department [place] [address] * ECG 12 lead (10/21/2024 7:21 PM CDT) 10/21/2024 7:21 PM CDT Narrative [facility] - 10/22/2024 11:27 PM CDT Vent Rate: 116 bpm RR Interval: 515 msec RI Interval: 164 msec QRS Duration: 95 msec QT Interval: 307 msec QTC Interval: 376 msec P-R-T Renovo: 58 - -13 - 46 degrees IMPRESSION: SINUS TACHYCARDIA ABNORMAL RHYTHM ECG Electronically Signed By: Dr. Adriana Hernandez [facility] us Chuy Cabral MD ECG ORDERABLES Lanette l Result Performing Organization Address City/[facility]/ZIP Co de Phone Number [facility] from Last 3 Months Insurance [facility] [place] [address] PLAN [facility] OFFICE [facility] PLAN Advance Directives For more information, please contact: [phone] * Full Code (Latest Code Status on File) Date Activated Date Inactivated Comments 12/17/2024 1:49 PM 12/20/2024 5:14 PM * Full Code Date Activated Date Inactivated Comments 10/30/2024 2:54 PM 11/03/2024 9:58 PM * Full Code Date Activated Date Inactivated Comments 10/22/2024 1:28 AM 10/25/2024 7:31 PM * Full Code Date Activated Date Inactivated Comments 10/10/2024 12:20 PM 10/13/2024 5:59 PM Care Teams [employer] Director Relationship Specialty Start Date End Date Weston Mantilla DO PCP - General Family Medicine 09/03/23 Kimberli Collins DPM [address] [place] [id number] Consulting Physician Foot and Ankle Surg 09/14/23
--- OUTSIDE RECORDS SUMMARY | 2025-01-21 08:02 | XMS_ITS | Referral Summary ---
Author Organization [facility] [address] Address [address] [place] [address] Care Team Providers Care Quantitative Analyst Marketing Name Role Phone Weston Mantilla Primary Care Provide r Kimberli Collins DPM Unavailable [phone] Encounters Date Type Department Care Team Description 12/26/2024 [facility] Post Discharge [place] [address] MackAlannah ramírez Miguel Angel 12/17/2024 8:47 AM CDT - 12/20/2024 1:09 PM [place] [address] Jered Titus DO Novoselova, Victoria, MD Onaghise, Jude, MD Ogunremi, Olumide Omolulu, MD Burton, Jeffrey Ryan, DO Alcohol withdrawal syndrome with complication (HCC) (Primary Dx) Discharge Disposition: Discharge to home or self care 10/30/2024 7:40 AM CDT - 11/03/2024 5:58 [place] [address] Jennifer Pisano MD Onaghise, Jude, MD Alcohol abuse (Primary Dx); Chest pain, unspecified type; Alcohol withdrawal syndrome without complication (HCC) Discharge Disposition: Discharge to home or self care 10/21/2024 7:16 PM CDT - 10/25/2024 12:30 PM CDT Hospital Encounter [facility] [address] [place] [address] Grayson Donnelly MD Burton, DO Roberto Andrew [...] drink = 0.6 oz pur e alcohol) [facility] Utilities Answer Date Recorded In the past 12 months has e [place], gas, oil, or water [employer] threatened to shut off services in your [...] often do you attend chur ch or holiness services? Never 12/18/2024 Do you belong to any clubs o r organizations such as restorationist groups, unions, fraternal or athletic groups, or [...] any time in the past 12 m [facility], were you homeless or living in a snf (including now)? No 12/18/2024 Personal Safety Answer Date Recorded Have you ever been in or are you currently in a harmful physical or emotional relationship or is someone making you feel afraid or unsafe? 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 Gender Identity Not on file Sexual Orientation [...] on file Medical Devices Implanted Type Area Maintenance Engineer Device Identifier Shelf Expiration Date Model / Serial / Lot Boy [employer] Enio 1.1mm 152mm Trocar Point 2 End Style 1 Wire Fixation [id number] - [id number] - [id number] Implanted:Qty: 2 on 09/14/2023 by Kimberli Collins DPM at [facility] Explanted:03/13 (Quantity not on file) Right: [employer]es [employer] 03/09/2032 [id number] / [id number] Description:K-WIRE TO 3RD AN D 4TH TOES, [...] CONTRAST ED 12/17/2024 1 1:36 AM CDT [place] CRITICAL CARE ILL/INJURED PATIENT INIT 30-74 MIN [...] CDT MAGNESIUM Routine 10/23/2024 6:01 AM CDT [place] CRITICAL CARE ILL/INJURED PATIENT INIT 30-74 MIN [...] whole blood (12/20/2024 8:34 AM CDT) Pathologist [facility] [place] Ca, ionized, bld 4.68 4.50 - 5.10 mg/dL Blood 12/20/2024 8:34 AM CDT 12/20/2024 8:47 AM CDT Meghana Chance MD LAB BLOOD ORDERABLES Lanette l Result Performing Organization Address City/[facility]/ZIP Co de Phone Number ETHAN [address] [place] [address] * POCT glucose (12/20/2024 7:02 AM CDT) [facility] Glucose, POC 87 70 - 199 mg/dL POC Performer [id number] [facility] Blood 12/20/2024 7:02 AM CDT 12/20/2024 7:02 AM CDT Chito Miller MD LAB POCT ORDERABLES - DEVICE Final Result [facility] [address] [facility] [place] [address] * eGFR (12/20/2024 3:38 AM CDT) [facility] eGFR >90 >=60 mL/min/1. 73 m2 Comment: [...] MD LAB BLOOD ORDERABLES Lanette bartholomew Result [facility] [address] Department [place] [address] * (ABNORMAL) CBC without differential (12/20/2024 3:38 AM CDT) WBC 5.82 3.80 - 9.90 K/cumm Hgb 12.9(L) 13.0 - 17.5 g/dL [facility] Hct 39.0 38.9 - 50.3 % [facility] Plt 172 150 - 400 K/cumm [facility] MPV 11.3 9.1 - 12.3 fL [facility] RBC 3.97(L) 4.30 - 5.80 M/cumm [facility] MCV 98.2(H) 81.3 - 96.4 fL [facility] MCH 32.5 27.1 - 33.3 pg [facility] MCHC 33.1 32.3 - 35.7 g/dL [facility] RDW CV 12.4 11.1 - 14.9 % [facility] RDW SD 44.8 35.7 - 48.1 fL [facility] NRBC abs 0.00 0.00 - 0.01 K/cumm [facility] Blood 12/20/2024 3:38 AM CDT 12/20/2024 5:27 AM CDT Meghana Chance MD LAB BLOOD ORDERABLES Lanette l Result Performing Organization Address City/[facility]/ZIP Co de Phone Number ETHAN [address] [place] [address] * Phosphorus (12/20/2024 3:38 AM CDT) Phosphorus, pl 3.8 2.3 - 4.5 mg/dL Blood 12/20/2024 3:38 AM CDT 12/20/2024 5:25 AM CDT Meghana Chance MD LAB BLOOD ORDERABLES Lanette l Result Performing Organization Address [facility] Phone Number [facility] [address] [place] [address] * (ABNORMAL) Basic metabolic panel (12/20/2024 3:38 AM CDT) Sodium 137 135 - 145 mmol/L Potassium, pl 3.2(L) 3.3 - 4.9 mmol/L [facility] Chloride 99 97 - 110 mmol/L [facility] CO2 23 22 - 32 mmol/L [facility] Anion gap 15 2 - 15 mmol/L [facility] BUN 8 6 - 25 mg/dL [facility] Creatinine 0.72(L) 0.80 - 1.30 mg/dL [facility] Glucose 103 70 - 199 mg/dL [facility] Comment: Interpretive Data Fasting glucose >/= 126 [...] ORDERABLES Lanette l Result Performing Organization Address City/[facility] Co de Phone Number ETHAN STAHL [address] [place] [address] * POCT glucose (12/20/2024 12:51 AM CDT) Glucose, POC 109 70 - 199 mg/dL POC Performer [id number] [facility] Blood 12/20/2024 12:5 1 AM CDT 12/20/2024 12:51 AM CDT Chito Miller MD LAB POCT ORDERABLES - DEVICE Final Result Performing Organization Address [facility] de Phone Number ETHAN STAHL [address] [place] [address] * POCT glucose (12/19/2024 9:18 PM CDT) Glucose, POC 96 70 - 199 mg/dL POC Performer [id number] [facility] Blood 12/19/2024 9:18 PM CDT 12/19/2024 9:18 PM CDT Chito Miller MD LAB POCT ORDERABLES - DEVICE Final Result Performing Organization Address City/[facility] Co de Phone Number ETHAN STAHL [address] [facility] [place] [address] * POCT glucose (12/19/2024 4:44 PM CDT) Glucose, POC 89 70 - 199 mg/dL POC Performer [id number] [facility] Blood 12/19/2024 4:44 PM CDT 12/19/2024 4:44 PM CDT Chito Miller MD LAB POCT ORDERABLES - DEVICE Final Result Performing Organization Address [facility] Co de Phone Number ETHAN STAHL [address] [address] [facility] [place] [address] * POCT glucose (12/19/2024 11:44 AM CDT) Pathologist [facility] [place] Glucose, POC 96 70 - 199 mg/dL POC Performer [id number] [facility] Blood 12/19/2024 11:4 4 AM CDT 12/19/2024 11:44 AM CDT Chito Miller MD LAB POCT ORDERABLES - DEVICE Final Result Performing Organization Address [facility] de Phone Number ETHAN [address] [place] [address] * (ABNORMAL) Calcium, ionized, whole blood (12/19/2024 6:02 AM CDT) [facility] Ca, ionized, bld 4.06(L) 4.50 - 5.10 mg/dL Blood 12/19/2024 6:02 AM CDT 12/19/2024 6:08 AM CDT Meghana Chance MD LAB BLOOD ORDERABLES Lanette l Result Performing Organization Address [facility] Co de Phone Number ETHAN [address] [address] [facility] [place] [address] * eGFR (12/19/2024 6:02 AM CDT) [facility] eGFR >90 >=60 mL/min/1. 73 m2 Comment: [...] MD LAB BLOOD ORDERABLES Lanette bartholomew Result [facility] [address] [place] [address] * (ABNORMAL) CBC without differential (12/19/2024 6:02 AM CDT) WBC 4.56 3.80 - 9.90 K/cumm Hgb 12.9(L) 13.0 - 17.5 g/dL [facility] Hct 39.2 38.9 - 50.3 % [facility] Plt 125(L) 150 - 400 K/cumm [facility] MPV 11.1 9.1 - 12.3 fL [facility] RBC 3.96(L) 4.30 - 5.80 M/cumm [facility] MCV 99.0(H) 81.3 - 96.4 fL [facility] MCH 32.6 27.1 - 33.3 pg [facility] MCHC 32.9 32.3 - 35.7 g/dL [facility] RDW CV 12.5 11.1 - 14.9 % [facility] RDW SD 45.5 35.7 - 48.1 fL [facility] NRBC abs 0.00 0.00 - 0.01 K/cumm [facility] Blood 12/19/2024 6:02 AM CDT 12/19/2024 6:10 AM CDT Meghana Chance MD LAB BLOOD ORDERABLES Lanette l Result Performing Organization Address City/[facility]/ZIP Co de Phone Number ETHAN STAHL [address] [address] [facility] [place] [address] * Phosphorus (12/19/2024 6:02 AM CDT) Phosphorus, pl 3.6 2.3 - 4.5 mg/dL Blood 12/19/2024 6:02 AM CDT 12/19/2024 6:10 AM CDT Meghana Chance MD LAB BLOOD ORDERABLES Lanette l Result Performing Organization Address [facility] Co de Phone Number ALFREDOAYDE STAHL [address] [facility] [place] [address] * Magnesium (12/19/2024 6:02 AM CDT) Pathologist [facility] [place] Magnesium 1.8 1.4 - 2.5 mg/dL Blood 12/19/2024 6:02 AM CDT 12/19/2024 6:10 AM CDT Meghana Chance MD LAB BLOOD ORDERABLES Lanette l Result Performing Organization Address [facility] Co de Phone Number ALFREDOAYDE STAHL [address] [facility] [place] [address] * (ABNORMAL) Basic metabolic panel (12/19/2024 6:02 AM CDT) Sodium 135 135 - 145 mmol/L Potassium, pl 3.1(L) 3.3 - 4.9 mmol/L [facility] Chloride 101 97 - 110 mmol/L [facility] CO2 24 22 - 32 mmol/L [facility] Anion gap 10 2 - 15 mmol/L [facility] BUN 4(L) 6 - 25 mg/dL [facility] Creatinine 0.64(L) 0.80 - 1.30 mg/dL [facility] Glucose 101 70 - 199 mg/dL [facility] Comment: Interpretive Data Fasting glucose >/= 126 [...] 2022. Calcium 9.1 8.5 - 10.3 mg/dL [facility] Blood 12/19/2024 6:02 AM CDT 12/19/2024 6:10 AM CDT Meghana Chance MD LAB BLOOD ORDERABLES Lanette l Result ETHAN STAHL [address] [place] [address] * POCT glucose (12/19/2024 5:01 AM CDT) Glucose, POC 117 70 - 199 mg/dL POC Performer [id number] [facility] Blood 12/19/2024 5:01 AM CDT 12/19/2024 5:01 AM CDT John Barone MD LAB POCT ORDERABLES - DEVICE Fi nal Result ETHAN [address] [place] [address] * POCT glucose (12/19/2024 12:35 AM CDT) Glucose, POC 173 70 - 199 mg/dL POC Performer [id number] [facility] Blood 12/19/2024 12:3 5 AM CDT 12/19/2024 12:35 AM CDT Result Rubio Barone MD LAB POCT ORDERABLES - DEVICE Fi nal Result Performing Organization Address City/[facility]/ZIP Co de Phone Number ETHAN STAHL [address] [address] [facility] [place] [address] * POCT glucose (12/18/2024 9:42 PM CDT) Glucose, POC 107 70 - 199 mg/dL POC Performer [id number] [facility] Blood 12/18/2024 9:42 PM CDT 12/18/2024 9:42 PM CDT Result Rubio Barone MD LAB POCT ORDERABLES - DEVICE Fi nal Result Performing Organization Address [facility] Co de Phone Number ETHAN STAHL [address] [place] [address] * Critical Care (12/18/2024 6:54 AM CDT) [...] plan with the patient's team and other medical/apartment leasing consultant staff. This time was in addition [...] ORDERABLES Lanette l Result Performing Organization Address City/[facility]/ZIP Co de Phone Number ETHAN STAHL [address] [place] [address] * eGFR (12/18/2024 6:46 AM CDT) eGFR [...] ORDERABLES Lanette l Result Performing Organization Address City/[facility]/ZIP Co de Phone Number ETHAN STAHL [address] [address] [place] [address] * Protime-INR (12/18/2024 6:46 AM CDT) PT [...] ORDERABLES Lanette l Result Performing Organization Address City/[facility]/ZIP Co de Phone Number ETHAN STAHL [address] [place] [address] * (ABNORMAL) CBC without differential (12/18/2024 6:46 AM CDT) WBC 5.46 3.80 - 9.90 K/cumm Hgb 13.8 13.0 - 17.5 g/dL [facility] Hct 40.7 38.9 - 50.3 % [facility] Plt 145(L) 150 - 400 K/cumm [facility] MPV 10.8 9.1 - 12.3 fL [facility] RBC 4.15(L) 4.30 - 5.80 M/cumm [facility] MCV 98.1(H) 81.3 - 96.4 fL [facility] MCH 33.3 27.1 - 33.3 pg [facility] MCHC 33.9 32.3 - 35.7 g/dL [facility] RDW CV 12.8 11.1 - 14.9 % [facility] RDW SD 45.6 35.7 - 48.1 fL [facility] NRBC abs 0.00 0.00 - 0.01 K/cumm [facility] Blood 12/18/2024 6:46 AM CDT 12/18/2024 7:03 AM CDT Meghana Chance MD LAB BLOOD ORDERABLES Lanette l Result Performing Organization Address City/[facility]/ZIP Co de Phone Number ETHAN STAHL [address] [place] [address] * Phosphorus (12/18/2024 6:46 AM CDT) Phosphorus, pl 2.6 2.3 - 4.5 mg/dL Blood 12/18/2024 6:46 AM CDT 12/18/2024 7:03 AM CDT Meghana Chance MD LAB BLOOD ORDERABLES Lanette l Result ALFREDOAYDE [address] [place] [address] * Magnesium (12/18/2024 6:46 AM CDT) Pathologist [facility] [place] Magnesium 2.4 1.4 - 2.5 mg/dL Blood 12/18/2024 6:46 AM CDT 12/18/2024 7:03 AM CDT Meghana Chance MD LAB BLOOD ORDERABLES Lanette l Result Performing Organization Address City/[facility]/ZIP Co de Phone Number ALFREDOAYDE [address] [place] [address] * (ABNORMAL) Basic metabolic panel (12/18/2024 6:46 AM CDT) Pathologist [facility] [place] Sodium 136 135 - 145 mmol/L Potassium, pl 3.4 3.3 - 4.9 mmol/L [facility] Chloride 96(L) 97 - 110 mmol/L [facility] CO2 26 22 - 32 mmol/L [facility] Anion gap 14 2 - 15 mmol/L [facility] BUN 4(L) 6 - 25 mg/dL [facility] Creatinine 0.58(L) 0.80 - 1.30 mg/dL [facility] Comment:Icteric sample, test results may be affected. Glucose 89 70 - 199 mg/dL [facility] Comment: Interpretive Data Fasting glucose >/= 126 [...] BLOOD ORDERABLES Lanette bartholomew Result ETHAN STAHL [address] [place] [address] * Critical Care (12/17/2024 10:03 PM CDT) Narrative Hi Hough MD - 12/17/2024 10:03 PM CDT Hi Hough MD 12/23/2024 4:37 PM Critical Care Performed by: Derian Hinds NP Authorized by: Deiran Hinds NP CRITICAL CARE: Team: GAURAV Shift: [...] plan with the patient's team and other medical/apartment leasing consultant staff. This time was in addition [...] LAB BLOOD ORDERABLES F inal Result ETHAN [address] [address] [facility] [place] [address] * Sepsis Lactate w/ Reflex (12/17/2024 5:29 PM CDT) Sepsis Lactate 1.8 0.7 - 2.0 mmol/L Blood 12/17/2024 5:29 PM CDT 12/17/2024 5:59 PM CDT Jered Titus DO LAB BLOOD ORDERABLES Final Res ult Performing Organization Address [facility] Co de Phone Number ETHAN [address] [address] [place] [address] * (ABNORMAL) Calcium, ionized, whole blood (12/17/2024 5:29 PM CDT) Ca, ionized, bld 3.99(L) 4.50 - 5.10 mg/dL Blood 12/17/2024 5:29 PM CDT 12/17/2024 5:59 PM CDT Meghana Chance MD LAB BLOOD ORDERABLES Lanette l Result Performing Organization Address City/[facility]/ZIP Co de Phone Number ETHAN [address] [address] [place] [address] * eGFR (12/17/2024 5:29 PM [...] ORDERABLES Lanette l Result Performing Organization Address [facility] Co de Phone Number ETHAN STAHL [address] [address] [employer] [place], [place] [address] * (ABNORMAL) Phosphorus (12/17/2024 5:29 PM CDT) Phosphorus, pl 2.1(L) 2.3 - 4.5 mg/dL Blood 12/17/2024 5:29 PM CDT 12/17/2024 5:59 PM CDT Meghana Chance MD LAB BLOOD ORDERABLES Lanette l Result Performing Organization Address City/[facility] [place] [address] [address] [place] [address] * (ABNORMAL) Magnesium (12/17/2024 5:29 PM CDT) Magnesium 1.1(L) 1.4 - 2.5 mg/dL Blood 12/17/2024 5:29 PM CDT 12/17/2024 5:59 PM CDT Meghana Chance MD LAB BLOOD ORDERABLES Lanette l Result ALFREDOAYDE [address] [address] [place] [address] * (ABNORMAL) Basic metabolic panel (12/17/2024 5:29 [...] 2022. Calcium 8.8 8.5 - 10.3 mg/dL [facility] Blood 12/17/2024 5:29 PM CDT 12/17/2024 5:59 PM CDT Meghana Chance MD LAB BLOOD ORDERABLES Lanette l Result ETHAN STAHL [address] [address] [place] [address] * ECG 12 lead (12/17/2024 4:45 PM CDT) 12/17/2024 4:45 PM CDT Narrative [facility] - 12/17/2024 6:24 PM CDT Vent Rate: 119 bpm RR Interval: 503 msec AK Interval: 149 msec QRS Duration: 81 msec QT Interval: 310 msec QTC Interval: 381 msec P-R-T Hugo: 56 - 38 - 44 degrees IMPRESSION: SINUS TACHYCARDIA ABNORMAL RHYTHM ECG Electronically Signed By: Dr. Adriana Hernandez [facility] Meghana Chance MD ECG ORDERABLES Final Res ult Performing Organization Address City/[facility]/ZIP Co de Phone Number [facility] * POCT glucose (12/17/2024 3:36 PM CDT) Glucose, POC 98 70 - 199 mg/dL POC Performer [id number] ETHAN STAHL Blood 12/17/2024 3:36 PM CDT 12/17/2024 3:36 PM CDT Meghana Chance MD LAB POCT ORDERABLES - DEV ICE Final Result Performing Organization Address [facility] Co de Phone Number ETAHN [address] [place] [address] * Critical Care (12/17/2024 3:34 PM CDT) [...] plan with the ICU team and other medical/apartment leasing consultant staff, making frequent assessments and decisions [...] w/ Reflex (12/17/2024 2:46 PM CDT) Pathologist [facility] [place] Sepsis Lactate 5.7(C) 0.7 - 2.0 mmol/L Comment:Critical result call ed to and read back by Sarah Grimes (RN_) on 12/17/2024 15:28:04 CDT_ to Cathi Dixon . Blood 12/17/2024 2:46 PM CDT 12/17/2024 3:04 PM CDT Jered Titus DO LAB BLOOD ORDERABLES Final Res ult [facility] [address] [place] [address] * Troponin T high-sensitivity 4-hour (12/17/2024 1:20 PM CDT) Pathologist [facility] [place] Trop T hs 10 <=22 ng/L Comment: Interpretive Data For further hscTnT resources including the diagnostic algorithm and an aid in interpretation, copy and paste this link: https://nrl.testcatalog.org/show/hsTrop Current Interpretive Data last revised 2020. Trop T hs delta 1 ng/L [facility] Trop T hs interp Insignificant [facility] Blood 12/17/2024 1:20 PM CDT 12/17/2024 1:29 PM CDT Christina Shepard MD LAB BLOOD ORDERABLES F inal Result ETHAN STAHL [address] [place] [address] * (ABNORMAL) Beta-hydroxybutyrate (12/17/2024 1:20 PM CDT) Beta-Hydroxybut yrate 0.8(H) <=0.5 mmol/L Blood 12/17/2024 1:20 PM CDT 12/17/2024 1:48 PM CDT Jered Titus DO LAB BLOOD ORDERABLES Final Res ult Performing Organization Address [facility] de Phone Number ETHAN STAHL [address] [place] [address] * Troponin T high-sensitivity 2-hour (12/17/2024 11:42 [...] ORDERABLES F inal Result Performing Organization Address [facility]/ZIP Co de Phone Number ETHAN STAHL [address] [address] [employer] [place], [place] [address] * (ABNORMAL) Sepsis Lactate w/ Reflex (12/17/2024 11:42 AM CDT) Sepsis Lactate 6.9(C) 0.7 - 2.0 mmol/L Comment:Alert Lactate called to and read back by Kenzie Cordero at 12/17/2024 12:09:20 CDT by Kallie Sabillon. Blood 12/17/2024 11:4 2 AM CDT 12/17/2024 12:03 PM CDT us Jered Titus DO LAB BLOOD ORDERABLES Final Res ult ETHAN STAHL [address] [address] [place] [address] * CT Head WO Contrast (12/17/2024 11:36 [...] Electronically signed by: Yumiko Smith M.D. us Jered Titus DO IMG CT PROCEDURES Final Result * [place] CRITICAL CARE ILL/INJURED PATIENT INIT 30-74 MIN [...] ORDERABLES Edited Re sult - Final ETHAN [address] [address] [place] [address] * eGFR (12/17/2024 9:41 AM CDT) eGFR [...] LAB BLOOD ORDERABLES Final Res ult ETHAN [address] [address] [place] [address] * (ABNORMAL) Differential, auto (12/17/2024 9:41 AM CDT) Neutrophil abs 9.85(H) 1.50 - 6.50 K/cumm Imm gran abs 0.06 0.00 - 0.10 K/cumm [facility] Lymphocyte abs 1.60 0.80 - 3.30 K/cumm [facility] Monocyte abs 0.73 0.20 - 0.80 K/cumm [facility] Eosinophil abs 0.05 0.00 - 0.50 K/cumm [facility] Basophil abs 0.09 0.00 - 0.10 K/cumm [facility] Neutrophil pct 79.6 % [facility] Comment: Interpretive [...] revised on 2017. Basophil pct 0.7 % [facility] Comment: Interpretive Data Percent cell count reference ranges are not reported, since discordance with absolute values may lead to misinterpretation of CBC data. Current Interpretive Data was last revised on 2017. Blood 12/17/2024 9:41 AM CDT 12/17/2024 9:48 AM CDT us Jered Titus DO LAB BLOOD ORDERABLES Final Res ult ETHAN [address] [address] [place] [address] * Pro B-type natriuretic peptide [...] DO LAB BLOOD ORDERABLES Final Res ult [facility] [address] [address] [place] [address] * (ABNORMAL) CBC with auto differential (12/17/2024 9:41 AM CDT) WBC 12.38(H) 3.80 - 9.90 K/cumm Hgb 14.4 13.0 - 17.5 g/dL [facility] Hct 43.7 38.9 - 50.3 % [facility] Plt 175 150 - 400 K/cumm [facility] Comment:No clot detected in sample. MPV 10.9 9.1 - 12.3 fL [facility] RBC 4.42 4.30 - 5.80 M/cumm [facility] MCV 98.9(H) 81.3 - 96.4 fL [facility] MCH 32.6 27.1 - 33.3 pg [facility] MCHC 33.0 32.3 - 35.7 g/dL [facility] RDW CV 12.9 11.1 - 14.9 % [facility] RDW SD 46.7 35.7 - 48.1 fL [facility] NRBC abs 0.00 0.00 - 0.01 K/cumm [facility] Morphologic Screen Results confirmed by manual morphology review. [facility] Blood 12/17/2024 9:41 AM CDT 12/17/2024 9:48 AM CDT Jered Titus DO LAB BLOOD ORDERABLES Final Res ult Performing Organization Address [facility] de Phone Number ETHAN STAHL [address] [address] [facility] [place] [address] * Magnesium (12/17/2024 9:41 AM CDT) Magnesium 1.5 1.4 - 2.5 mg/dL Blood 12/17/2024 9:41 AM CDT 12/17/2024 11:25 AM CDT Jered Titus LAB BLOOD ORDERABLES Final Res ult Performing Organization Address [facility] de Phone Number ETHAN [address] [address] [place] [address] * (ABNORMAL) Ethanol (12/17/2024 9:41 AM CDT) Ethanol 173(H) <=10 mg/dL Comment: Interpretive Data Legal limit of intoxication > or = 80 mg/dL Levels > or = 400 mg/dL are potentially TOXIC. Current interpretive data was last revised on 2018. Blood 12/17/2024 9:41 AM CDT 12/17/2024 11:25 AM CDT Jered Titus DO LAB BLOOD ORDERABLES Final Res ult [facility] [address] Department [place] [address] * (ABNORMAL) Comprehensive metabolic panel (12/17/2024 9:41 [...] ORDERABLES Final Res ult Performing Organization Address City/[facility] de Phone Number ETHAN STA[address] [place] [address] * ECG 12 lead (12/17/2024 8:50 AM CDT) 12/17/2024 8:50 AM CDT Narrative [facility] - 12/17/2024 6:31 PM CDT Vent Rate: 145 bpm RR Interval: 413 msec AK Interval: 131 msec QRS Duration: 86 msec QT Interval: 290 msec QTC Interval: 373 msec P-R-T Hugo: 38 - -69 - 46 degrees IMPRESSION: SINUS TACHYCARDIA, POSSIBLE ATRIAL FLUTTER LOW QRS VOLTAGE IN PRECORDIAL LEADS [QRS DEFLECTION < 1.0 mV IN CHEST LEADS] PATTERN CONSISTENT WITH PULMONARY DISEASE Poor R-wave progression Electronically Signed By: Dr. Adriana Hernandez [facility] Christina Shepard MD ECG ORDERABLES Final Result Performing Organization Address [facility] de Phone Number [facility] [employer] [facility] * eGFR (11/03/2024 7:22 AM CDT) eGFR [...] NP LAB BLOOD ORDERABLES Final Result ETHAN [address] Department [place] [address] * (ABNORMAL) Differential, auto (11/03/2024 7:22 AM CDT) Neutrophil abs 4.5 1.5 - 6.5 K/cumm Imm gran abs 0.1 0.0 - 0.1 K/cumm [facility] Lymphocyte abs 2.4 0.8 - 3.3 K/cumm [facility] Monocyte abs 1.0(H) 0.2 - 0.8 K/cumm [facility] Eosinophil abs 0.3 0.0 - 0.5 K/cumm [facility] Basophil abs 0.1 0.0 - 0.1 K/cumm [facility] Neutrophil pct 53.2 % [facility] Comment: Interpretive Data Percent cell count reference ranges are not reported, since discordance with absolute values may lead to misinterpretation of CBC data. Current Interpretive Data was last revised on 2017. Imm gran pct 0.8 % [facility] Comment: Interpretive Data Percent cell count reference ranges are not reported, since discordance with absolute values may lead to misinterpretation of CBC data. Current Interpretive Data was last revised on 2017. Lymphocyte pct 29.0 % [facility] Comment: Interpretive Data Percent cell count reference ranges are not reported, since discordance with absolute values may lead to misinterpretation of CBC data. Current Interpretive Data was last revised on 2017. Monocyte pct 11.7 % [facility] Comment: Interpretive Data Percent cell count reference ranges are not reported, since discordance with absolute values may lead to misinterpretation of CBC data. Current Interpretive Data was last revised on 2017. Eosinophil pct 3.9 % [facility] Comment: Interpretive Data Percent cell count reference ranges are not reported, since discordance with absolute values may lead to misinterpretation of CBC data. Current Interpretive Data was last revised on 2017. Basophil pct 1.4 % [facility] Comment: Interpretive Data Percent cell count reference ranges are not reported, since discordance with absolute values may lead to misinterpretation of CBC data. Current Interpretive Data was last revised on 2017. Blood 11/03/2024 7:22 AM CDT 11/03/2024 7:38 AM CDT Maria E Cristina Ayala NP LAB BLOOD ORDERABLES Final Result [facility] [address] [place] [address] * (ABNORMAL) CBC with auto differential (11/03/2024 7:22 AM CDT) WBC 8.4 3.8 - 9.9 K/cumm Hgb 13.7 13.0 - 17.5 g/dL [facility] Hct 44.4 38.9 - 50.3 % [facility] Plt 235 150 - 400 K/cumm [facility] MPV 10.4 9.1 - 12.3 fL [facility] RBC 4.19(L) 4.30 - 5.80 M/cumm [facility] MCV 106.0(H) 81.3 - 96.4 fL [facility] Comment:MCV delta possibly d ue to low sample volume. MCH 32.7 27.1 - 33.3 pg [facility] MCHC 30.9(L) 32.3 - 35.7 g/dL [facility] RDW CV 13.1 11.1 - 14.9 % [facility] RDW SD 51.0(H) 35.7 - 48.1 fL [facility] NRBC abs 0.00 0.00 - 0.01 K/cumm [facility] Blood 11/03/2024 7:22 AM CDT 11/03/2024 7:38 AM CDT Maria E Cristina Ayala NP LAB BLOOD ORDERABLES Final Result Performing Organization Address City/[facility]/ZIP Co de Phone Number ETHAN [address] [place] [address] * (ABNORMAL) Basic metabolic panel (11/03/2024 7:22 AM CDT) Pathologist [facility] [place] Sodium 137 135 - 145 mmol/L Potassium, pl 3.7 3.3 - 4.9 mmol/L [facility] Chloride 101 97 - 110 mmol/L [facility] CO2 23 22 - 32 mmol/L [facility] Anion gap 13 2 - 15 mmol/L [facility] BUN 8 6 - 25 mg/dL [facility] Creatinine 0.77(L) 0.80 - 1.30 mg/dL [facility] Glucose 91 70 - 199 mg/dL [facility] Comment: Interpretive Data Fasting glucose >/= 126 [...] 2022. Calcium 9.3 8.5 - 10.3 mg/dL [facility] Blood 11/03/2024 7:22 AM CDT 11/03/2024 7:38 AM CDT Maria E Ayala NP LAB BLOOD ORDERABLES Final Result ETHAN [address] Department [place] [address] * eGFR (11/02/2024 6:57 AM CDT) Pathologist [facility] [place] eGFR >90 >=60 mL/min/1. 73 m2 Comment: [...] Ayala NP LAB BLOOD ORDERABLES Final Result [facility] [address] Department [place] [address] * Differential, auto (11/02/2024 6:57 AM CDT) Neutrophil abs 2.7 1.5 - 6.5 K/cumm Imm gran abs 0.0 0.0 - 0.1 K/cumm [facility] Lymphocyte abs 2.3 0.8 - 3.3 K/cumm [facility] Monocyte abs 0.8 0.2 - 0.8 K/cumm [facility] Eosinophil abs 0.3 0.0 - 0.5 K/cumm [facility] Basophil abs 0.1 0.0 - 0.1 K/cumm [facility] Neutrophil pct 43.1 % [facility] Comment: Interpretive Data Percent cell count reference ranges are not reported, since discordance with absolute values may lead to misinterpretation of CBC data. Current Interpretive Data was last revised on 2017. Imm gran pct 0.5 % [facility] Comment: Interpretive Data Percent cell count reference ranges are not reported, since discordance with absolute values may lead to misinterpretation of CBC data. Current Interpretive Data was last revised on 2017. Lymphocyte pct 36.6 % [facility] Comment: Interpretive Data Percent cell count reference ranges are not reported, since discordance with absolute values may lead to misinterpretation of CBC data. Current Interpretive Data was last revised on 2017. Monocyte pct 13.1 % [facility] Comment: Interpretive Data Percent cell count reference ranges are not reported, since discordance with absolute values may lead to misinterpretation of CBC data. Current Interpretive Data was last revised on 2017. Eosinophil pct 5.1 % [facility] Comment: Interpretive Data Percent cell count reference ranges are not reported, since discordance with absolute values may lead to misinterpretation of CBC data. Current Interpretive Data was last revised on 2017. Basophil pct 1.6 % [facility] Comment: Interpretive Data Percent cell count reference ranges are not reported, since discordance with absolute values may lead to misinterpretation of CBC data. Current Interpretive Data was last revised on 2017. Blood 11/02/2024 6:57 AM CDT 11/02/2024 7:16 AM CDT Maria E Ayala RESIDENT SERVICES COORDINATOR LAB BLOOD ORDERABLES Final Result [facility] [address] Department [place] [address] * (ABNORMAL) CBC with auto differential (11/02/2024 6:57 AM CDT) WBC 6.3 3.8 - 9.9 K/cumm Hgb 14.4 13.0 - 17.5 g/dL [facility] Hct 43.1 38.9 - 50.3 % [facility] Plt 276 150 - 400 K/cumm [facility] MPV 11.0 9.1 - 12.3 fL [facility] RBC 4.32 4.30 - 5.80 M/cumm [facility] MCV 99.8(H) 81.3 - 96.4 fL [facility] MCH 33.3 27.1 - 33.3 pg [facility] MCHC 33.4 32.3 - 35.7 g/dL [facility] RDW CV 12.8 11.1 - 14.9 % [facility] RDW SD 47.2 35.7 - 48.1 fL [facility] NRBC abs 0.00 0.00 - 0.01 K/cumm [facility] Blood 11/02/2024 6:57 AM CDT 11/02/2024 7:16 AM CDT Maria E Ayala NP LAB BLOOD ORDERABLES Final Result Performing Organization Address [facility] Co de Phone Number [facility] [address] Department [place] [address] * Magnesium (11/02/2024 6:57 AM CDT) Pathologist [facility] [place] Magnesium 1.8 1.4 - 2.5 mg/dL Blood 11/02/2024 6:57 AM CDT 11/02/2024 7:14 AM CDT John Barone MD LAB BLOOD ORDERABLES Final Resu lt Performing Organization Address [facility] de Phone Number [facility] [address] [place] [place] [address] * Basic metabolic panel (11/02/2024 6:57 AM CDT) Pathologist [facility] [place] Sodium 139 135 - 145 mmol/L Potassium, pl 3.5 3.3 - 4.9 mmol/L [facility] Chloride 102 97 - 110 mmol/L [facility] CO2 25 22 - 32 mmol/L [facility] Anion gap 12 2 - 15 mmol/L [facility] BUN 8 6 - 25 mg/dL [facility] Creatinine 0.80 0.80 - 1.30 mg/dL [facility] Glucose 86 70 - 199 mg/dL [facility] Comment: Interpretive Data Fasting glucose >/= 126 [...] LAB BLOOD ORDERABLES Final Result [facility]AN STA[address] [place] [address] * eGFR (11/01/2024 5:58 AM CDT) eGFR [...] BLOOD ORDERABLES Final Result Performing Organization Address City/[facility]/ZIP Co de Phone Number ETHAN STAHL [address] [place] [address] * Differential, auto (11/01/2024 5:58 AM CDT) Neutrophil abs 1.8 1.5 - 6.5 K/cumm Imm gran abs 0.0 0.0 - 0.1 K/cumm [facility] Lymphocyte abs 2.2 0.8 - 3.3 K/cumm [facility] Monocyte abs 0.8 0.2 - 0.8 K/cumm [facility] Eosinophil abs 0.2 0.0 - 0.5 K/cumm [facility] Basophil abs 0.1 0.0 - 0.1 K/cumm [facility] Neutrophil pct 35.7 % [facility] Comment: Interpretive Data Percent cell count reference ranges are not reported, since discordance with absolute values may lead to misinterpretation of CBC data. Current Interpretive Data was last revised on 2017. Imm gran pct 0.2 % [facility] Comment: Interpretive Data Percent cell count reference ranges are not reported, since discordance with absolute values may lead to misinterpretation of CBC data. Current Interpretive Data was last revised on 2017. Lymphocyte pct 42.9 % [facility] Comment: Interpretive Data Percent cell count reference ranges are not reported, since discordance with absolute values may lead to misinterpretation of CBC data. Current Interpretive Data was last revised on 2017. Monocyte pct 15.8 % [facility] Comment: Interpretive Data Percent cell count reference ranges are not reported, since discordance with absolute values may lead to misinterpretation of CBC data. Current Interpretive Data was last revised on 2017. Eosinophil pct 3.4 % [facility] Comment: Interpretive Data Percent cell count reference ranges are not reported, since discordance with absolute values may lead to misinterpretation of CBC data. Current Interpretive Data was last revised on 2017. Basophil pct 2.0 % [facility] Comment: Interpretive Data Percent cell count reference ranges are not reported, since discordance with absolute values may lead to misinterpretation of CBC data. Current Interpretive Data was last revised on 2017. Blood 11/01/2024 5:58 AM CDT 11/01/2024 6:13 AM CDT Maria E Nyakio Kagotho RESIDENT SERVICES COORDINATOR LAB BLOOD ORDERABLES Final Result Performing Organization Address [facility] Co de Phone Number [facility]AN STAHL [address] [place] [address] * (ABNORMAL) CBC with auto differential (11/01/2024 5:58 AM CDT) WBC 5.0 3.8 - 9.9 K/cumm Hgb 13.3 13.0 - 17.5 g/dL [facility] Hct 41.5 38.9 - 50.3 % [facility] Plt 203 150 - 400 K/cumm [facility] MPV 10.6 9.1 - 12.3 fL [facility] RBC 4.05(L) 4.30 - 5.80 M/cumm [facility] MCV 102.5(H) 81.3 - 96.4 fL [facility] MCH 32.8 27.1 - 33.3 pg [facility] MCHC 32.0(L) 32.3 - 35.7 g/dL [facility] RDW CV 13.0 11.1 - 14.9 % [facility] RDW SD 49.5(H) 35.7 - 48.1 fL [facility] NRBC abs 0.00 0.00 - 0.01 K/cumm [facility] Blood 11/01/2024 5:58 AM CDT 11/01/2024 6:13 AM CDT Maria E Ayala NP LAB BLOOD ORDERABLES Final Result Performing Organization Address [facility] Co de Phone Number [facility]AN STAHL [address] [place] [address] * Magnesium (11/01/2024 5:58 AM CDT) Pathologist [facility] [place] Magnesium 1.7 1.4 - 2.5 mg/dL Blood 11/01/2024 5:58 AM CDT 11/01/2024 6:12 AM CDT John Barone MD LAB BLOOD ORDERABLES Final Resu lt Performing Organization Address City/[facility]/ZIP Co de Phone Number ETHAN STA[address] [place] [address] * (ABNORMAL) Basic metabolic panel (11/01/2024 5:58 AM CDT) Sodium 140 135 - 145 mmol/L Potassium, pl 3.7 3.3 - 4.9 mmol/L [facility] Chloride 106 97 - 110 mmol/L [facility] CO2 20(L) 22 - 32 mmol/L [facility] Anion gap 14 2 - 15 mmol/L [facility] BUN 6 6 - 25 mg/dL [facility] Creatinine 0.63(L) 0.80 - 1.30 mg/dL [facility] Glucose 98 70 - 199 mg/dL [facility] Comment: Interpretive Data Fasting glucose >/= 126 [...] 2022. Calcium 9.1 8.5 - 10.3 mg/dL [facility] Blood 11/01/2024 5:58 AM CDT 11/01/2024 6:12 AM CDT Maria E Ayala NP LAB BLOOD ORDERABLES Final Result [facility] STA[address] [place] [address] * eGFR (10/31/2024 4:16 AM CDT) Pathologist [facility] [place] eGFR >90 >=60 mL/min/1. 73 m2 Comment: [...] Ayala NP LAB BLOOD ORDERABLES Final Result [facility] [address] [place] [address] * (ABNORMAL) Differential, auto (10/31/2024 4:16 AM CDT) Neutrophil abs 2.3 1.5 - 6.5 K/cumm Imm gran abs 0.0 0.0 - 0.1 K/cumm [facility] Lymphocyte abs 2.7 0.8 - 3.3 K/cumm [facility] Monocyte abs 0.9(H) 0.2 - 0.8 K/cumm [facility] Eosinophil abs 0.1 0.0 - 0.5 K/cumm [facility] Basophil abs 0.1 0.0 - 0.1 K/cumm [facility] Neutrophil pct 37.7 % [facility] Comment: Interpretive [...] revised on 2017. Lymphocyte pct 44.2 % [facility] Comment: Interpretive Data Percent cell count reference ranges are not reported, since discordance with absolute values may lead to misinterpretation of CBC data. Current Interpretive Data was last revised on 2017. Monocyte pct 14.0 % [facility] Comment: Interpretive Data Percent cell count reference ranges are not reported, since discordance with absolute values may lead to misinterpretation of CBC data. Current Interpretive Data was last revised on 2017. Eosinophil pct 2.3 % [facility] Comment: Interpretive Data Percent cell count reference ranges are not reported, since discordance with absolute values may lead to misinterpretation of CBC data. Current Interpretive Data was last revised on 2017. Basophil pct 1.3 % [facility] Comment: Interpretive Data Percent cell count reference ranges are not reported, since discordance with absolute values may lead to misinterpretation of CBC data. Current Interpretive Data was last revised on 2017. Blood 10/31/2024 4:16 AM CDT 10/31/2024 4:32 AM CDT Maria E Ayala NP LAB BLOOD ORDERABLES Final Result [facility] [address] Department [place] [address] * (ABNORMAL) CBC with auto differential (10/31/2024 4:16 AM CDT) WBC 6.1 3.8 - 9.9 K/cumm Hgb 12.1(L) 13.0 - 17.5 g/dL [facility] Hct 36.8(L) 38.9 - 50.3 % [facility] Plt 209 150 - 400 K/cumm [facility] MPV 10.4 9.1 - 12.3 fL [facility] RBC 3.66(L) 4.30 - 5.80 M/cumm [facility] MCV 100.5(H) 81.3 - 96.4 fL [facility] MCH 33.1 27.1 - 33.3 pg [facility] MCHC 32.9 32.3 - 35.7 g/dL [facility] RDW CV 13.0 11.1 - 14.9 % [facility] RDW SD 48.3(H) 35.7 - 48.1 fL [facility] NRBC abs 0.00 0.00 - 0.01 K/cumm [facility] Blood 10/31/2024 4:16 AM CDT 10/31/2024 4:32 AM CDT Maria E Ayala NP LAB BLOOD ORDERABLES Final Result [facility] [address] [place] [address] * (ABNORMAL) Basic metabolic panel (10/31/2024 4:16 [...] BLOOD ORDERABLES Final Result Performing Organization Address City/[facility]/ZIP Co de Phone Number ETHAN STAHL [address] Department of Laboratories [place], [place] [id number] * Troponin T high-sensitivity 2-hour (10/30/2024 9:51 [...] ORDERABLES Fi nal Result Performing Organization Address [facility]/ZIP Co de Phone Number ETHAN STAHL [address] Department [place] [address] * Urinalysis reflex to microscopic and culture [...] tendency for uric acid stone formation. Source: BPT Current Interpretive Data was last revised on 2017 Protein, ur ql Trace Negative [facility] Glucose, ur ql Negative Negative [facility] Ketones, ur Negative Negative [facility] Bilirubin, ur Negative Negative [facility] Blood, ur Negative Negative [facility] Urobilinogen, ur <2.0 <2.0 mg/dL [facility] Nitrite, ur Negative Negative [facility] Leukocyte esterase, ur Negative Negative [facility] UA reflex comment Reflex conditions for microscopic UA and culture not met. [facility] Urine 10/30/2024 9:51 AM CDT 10/30/2024 9:56 AM CDT Jennifer Pisano MD LAB MICROBIOLOGY - [facility] ORDERABLES Final Result [facility] [address] [place] [address] * (ABNORMAL) Drugs of Abuse Screen, Urine [...] 2023. Barbiturates, ur Not Detected CutOff 200ng/mL [facility] Comment: Interpretive Data - Barbiturates: Samples containing greater than 200 ng/mL secobarbital or other cross-reacting barbiturate compounds are reported as positive. False positive and false negative results are possible. Confirmatory testing required for definitive results. Current Interpretive Data was last reviewed 2023. Benzodiazepines, ur Screen Positive, presumptive (A) CutOff 100ng/mL [facility] Comment: Interpretive Data - Benzodiazepines: Samples containing greater than 100 ng/mL nordiazepam or other cross-reacting compounds are reported as positive. False positive and false negative results are possible. Confirmatory testing required for definitive results. Current Interpretive Data was last reviewed 2023. Cannabinoids, ur Not Detected CutOff 50 ng/mL [facility] Comment: Interpretive Data - Cannabinoids: Samples containing greater than 50 ng/mL delta-9 THC -COOH or other cross- reacting compounds are reported as positive. False positive and false negative results are possible. Confirmatory testing required for definitive results. Current Interpretive Data was last reviewed 2023. Cocaine, ur Not Detected CutOff 150ng/mL [facility] Comment: Interpretive Data - Cocaine: Samples containing greater than 150 ng/mL benzoylecgonine or other cross- reacting compounds are reported as positive. False positive and false negative results are possible. Confirmatory testing required for definitive results. Current Interpretive Data was last reviewed 2023. Fentanyl, Ur Not Detected CutOff 5 ng/mL [facility] Comment: Interpretive Data - Fentanyl: Samples containing greater than 5 ng/mL norfentanyl, fentanyl, or other cross-reacting fentanyl compounds are reported as positive. False positive and false negative results are possible. Confirmatory testing required for definitive results. Current Interpretive Data was last reviewed 2023. Methadone, ur Not Detected CutOff 300ng/mL [facility] Comment: Interpretive Data - Methadone: Samples containing greater than 300 ng/mL d,l-methadone or other cross-reacting compounds are reported as positive. False positive and false negative results are possible. Confirmatory testing required for definitive results. Current Interpretive Data was last reviewed 2023. Opiates, ur Not Detected CutOff 300ng/mL [facility] Comment: Interpretive Data - Opiates: Samples containing greater than 300 ng/mL morphine or other cross-reacting compounds are reported as positive. False positive and false negative results are possible. Confirmatory testing required for definitive results. Current Interpretive Data was last reviewed 2023. Oxycodone, ur Not Detected CutOff 100ng/mL [facility] Comment: Interpretive Data - Oxycodone: Samples containing greater than 100 ng/mL oxycodone or other cross-reacting compounds are reported as positive. False positive and false negative results are possible. Confirmatory testing required for definitive results. Current Interpretive Data was last reviewed 2023. Phencyclidine, ur Not Detected CutOff 25 ng/mL [facility] Comment: Interpretive Data - Phencyclidine: Samples containing greater than 25 ng/mL phencyclidine or other cross-reacting compounds are reported as positive. False positive and false negative results are possible. Confirmatory testing required for definitive results. Current Interpretive Data was last reviewed 2023. Urine Creatinine 150 mg/dL [facility] Comment: Interpretive Data Urine Creatinine: < 10 [...] LAB URINE ORDERABLES Fi nal Result [facility] [address] [place] [address] * XR Chest 1 Vw Portable (10/30/2024 [...] ORDERABLES Fi nal Result Performing Organization Address City/[facility]/ZIP Co de Phone Number [facility] [address] [place] [address] * eGFR (10/30/2024 7:53 AM CDT) eGFR [...] LAB BLOOD ORDERABLES Fi nal Result [facility] [address] [place] [address] * Differential, auto (10/30/2024 7:53 AM CDT) Neutrophil abs 3.2 1.5 - 6.5 K/cumm Imm gran abs 0.1 0.0 - 0.1 K/cumm [facility] Lymphocyte abs 2.8 0.8 - 3.3 K/cumm [facility] Monocyte abs 0.8 0.2 - 0.8 K/cumm [facility] Eosinophil abs 0.1 0.0 - 0.5 K/cumm [facility] Basophil abs 0.1 0.0 - 0.1 K/cumm [facility] Neutrophil pct 45.0 % [facility] Comment: Interpretive Data Percent cell count reference ranges are not reported, since discordance with absolute values may lead to misinterpretation of CBC data. Current Interpretive Data was last revised on 2017. Imm gran pct 1.0 % [facility] Comment: Interpretive Data Percent cell count reference ranges are not reported, since discordance with absolute values may lead to misinterpretation of CBC data. Current Interpretive Data was last revised on 2017. Lymphocyte pct 39.8 % [facility] Comment: Interpretive Data Percent cell count reference ranges are not reported, since discordance with absolute values may lead to misinterpretation of CBC data. Current Interpretive Data was last revised on 2017. Monocyte pct 11.0 % [facility] Comment: Interpretive Data Percent cell count reference ranges are not reported, since discordance with absolute values may lead to misinterpretation of CBC data. Current Interpretive Data was last revised on 2017. Eosinophil pct 1.9 % [facility] Comment: Interpretive Data Percent cell count reference ranges are not reported, since discordance with absolute values may lead to misinterpretation of CBC data. Current Interpretive Data was last revised on 2017. Basophil pct 1.3 % [facility] Comment: Interpretive Data Percent cell count reference ranges are not reported, since discordance with absolute values may lead to misinterpretation of CBC data. Current Interpretive Data was last revised on 2017. Blood 10/30/2024 7:53 AM CDT 10/30/2024 7:53 AM CDT Jennifer Pisano MD LAB BLOOD ORDERABLES Fi nal Result Performing Organization Address [facility] Co de Phone Number ETHAN [address] [place] [employer] [place] [address] * (ABNORMAL) CBC with auto differential (10/30/2024 7:53 AM CDT) WBC 7.0 3.8 - 9.9 K/cumm Hgb 13.9 13.0 - 17.5 g/dL [facility] CH Hct 43.6 38.9 - 50.3 % [facility] CH Plt 279 150 - 400 K/cumm [facility] CH MPV 10.1 9.1 - 12.3 fL [facility] RBC 4.30 4.30 - 5.80 M/cumm [facility] MCV 101.4(H) 81.3 - 96.4 fL [facility] CH MCH 32.3 27.1 - 33.3 pg [facility] MCHC 31.9(L) 32.3 - 35.7 g/dL [facility] CH RDW CV 13.6 11.1 - 14.9 % [facility] RDW SD 50.8(H) 35.7 - 48.1 fL [facility] NRBC abs 0.00 0.00 - 0.01 K/cumm [facility] CH Blood Venous blood specimen / Unknown 10/30/2024 7:53 AM CDT 10/30/2024 7:53 AM CDT Jennifer Pisano MD LAB BLOOD ORDERABLES Fi nal Result Performing Organization Address City/[facility]/ZIP Co de Phone Number ETHAN STA[address] [place] [employer] [address] * (ABNORMAL) Ethanol (10/30/2024 7:53 AM CDT) Ethanol 233(H) <=10 mg/dL Comment: Interpretive Data Legal limit of intoxication > or = 80 mg/dL Levels > or = 400 mg/dL are potentially TOXIC. Current interpretive data was last revised on 2018. Blood 10/30/2024 7:53 AM CDT 10/30/2024 7:53 AM CDT us Jennifer Pisano MD LAB BLOOD ORDERABLES Fi nal Result CERNER [address] Department [place] [address] * (ABNORMAL) Comprehensive metabolic panel (10/30/2024 7:53 [...] BLOOD ORDERABLES Fi nal Result ETHAN STA[address] Department of Laboratories [place] [id number] * ECG 12 lead (10/30/2024 7:52 AM CDT) 10/30/2024 7:52 AM CDT Narrative [facility] - 10/30/2024 10:22 PM CDT Vent Rate: 108 bpm RR Interval: 553 msec [place] Interval: 162 msec QRS Duration: 91 msec QT Interval: 323 msec QTC Interval: 386 msec P-R-T Hugo: 49 - -28 - 39 degrees IMPRESSION: SINUS TACHYCARDIA Electronically Signed By: Mitch Schaefer MD, [facility] Jennifer Pisano MD ECG ORDERABLES Final R esult Performing Organization Address City/[facility]/ZIP Co de Phone Number [facility] [employer] [facility] * eGFR (10/25/2024 3:33 AM CDT) [...] BLOOD ORDERABLES Final Result Performing Organization Address City/[facility] Co de Phone Number ETHAN STH[address] [facility] [place] [address] * Magnesium (10/25/2024 3:33 AM CDT) Magnesium 1.6 1.4 - 2.5 mg/dL Blood 10/25/2024 3:33 AM CDT 10/25/2024 3:37 AM CDT Chuy Cabral MD LAB BLOOD ORDERABLES Final Result Performing Organization Address [facility] de Phone Number [facility] [address] [place] [employer] [place] [address] * (ABNORMAL) Basic metabolic panel (10/25/2024 3:33 AM CDT) Sodium 141 135 - 145 mmol/L Potassium, pl 3.8 3.3 - 4.9 mmol/L [facility] Chloride 104 97 - 110 mmol/L [facility] CO2 26 22 - 32 mmol/L [facility] Anion gap 11 2 - 15 mmol/L [facility] BUN 6 6 - 25 mg/dL [facility] Creatinine 0.68(L) 0.80 - 1.30 mg/dL [facility] Glucose 87 70 - 199 mg/dL [facility] Comment: Interpretive Data Fasting glucose >/= 126 [...] MD LAB BLOOD ORDERABLES Final Result ETHAN [address] [place] [address] * eGFR (10/24/2024 5:45 AM CDT) eGFR [...] MD LAB BLOOD ORDERABLES Final Result ETHAN [address] [place] [address] * Magnesium (10/24/2024 5:45 AM CDT) Magnesium 1.7 1.4 - 2.5 mg/dL Blood 10/24/2024 5:45 AM CDT 10/24/2024 5:49 AM CDT Chuy Cabral MD LAB BLOOD ORDERABLES Final Result [facility] [address] Department [place] [address] * (ABNORMAL) Basic metabolic panel (10/24/2024 5:45 AM CDT) Sodium 143 135 - 145 mmol/L Potassium, pl 4.2 3.3 - 4.9 mmol/L [facility] Chloride 105 97 - 110 mmol/L [facility] CO2 28 22 - 32 mmol/L [facility] Anion gap 10 2 - 15 mmol/L [facility] BUN 4(L) 6 - 25 mg/dL [facility] Creatinine 0.79(L) 0.80 - 1.30 mg/dL [facility] Glucose 91 70 - 199 mg/dL [facility] Comment: Interpretive Data Fasting glucose >/= 126 [...] 2022. Calcium 9.1 8.5 - 10.3 mg/dL [facility] Blood 10/24/2024 5:45 AM CDT 10/24/2024 5:49 AM CDT Chuy Cabral MD LAB BLOOD ORDERABLES Final Result [facility] [address] Department [place] [address] * eGFR (10/23/2024 6:01 AM CDT) eGFR [...] BLOOD ORDERABLES Final Result Performing Organization Address [facility] Co de Phone Number [facility] [place] [place] [place] [address] [address] [place] [address] * Magnesium (10/23/2024 6:01 AM CDT) Pathologist [facility] Magnesium 1.6 1.4 - 2.5 mg/dL Blood 10/23/2024 6:01 AM CDT 10/23/2024 6:08 AM CDT Chuy Cabral MD LAB BLOOD ORDERABLES Final Result Performing Organization Address [facility] Co de Phone [place] [facility] [place] [address] [address] [place] [address] * (ABNORMAL) Basic metabolic panel (10/23/2024 6:01 [...] [facility] Glucose 106 70 - 199 mg/dL [facility] Comment: Interpretive Data Fasting glucose >/= 126 [...] 2022. Calcium 8.9 8.5 - 10.3 mg/dL [facility] Blood 10/23/2024 6:01 AM CDT 10/23/2024 6:08 AM CDT Chuy Cabral MD LAB BLOOD ORDERABLES Final Result [facility] [address] [employer] [facility] [place] [address] * [place] CRITICAL CARE ILL/INJURED PATIENT INIT 30-74 MIN [...] tendency for uric acid stone formation. Source: [place] [employer] Current Interpretive Data was last revised on [...] MICROBIOLOGY - GENER AL ORDERABLES Final Result [facility] [address] [employer] [facility] [place] [address] * (ABNORMAL) Drugs of Abuse Screen, Urine [...] PM CDT 10/21/2024 9:36 PM CDT Narrative [facility] - 10/21/2024 10:09 PM CDT Drug of Abuse screening is performed by immunoassay for medical purposes only. This is not to be used for Pain Management purposes. us Grayson Donnelly MD LAB URINE ORDERABLES Fin al Result ETHAN [address] [place] [address] * CT Head Cervical Face [...] No acute fracture. Normal alignment. There are [id number] endplate and uncovertebral degenerative changes seen at [...] No acute fracture. Normal alignment. There are ghti-ex-[id number] endplate and uncovertebral degenerative changes seen at [...] CDT 10/21/2024 8:02 PM CDT us Grayson oDnnelly MD LAB BLOOD ORDERABLES Fin al Result ETHAN [address] [place] [address] * (ABNORMAL) Differential, auto (10/21/2024 8:02 PM CDT) Neutrophil abs 4.2 1.5 - 6.5 K/cumm Imm gran abs 0.0 0.0 - 0.1 K/cumm [facility] Lymphocyte abs 3.0 0.8 - 3.3 K/cumm [facility] Monocyte abs 0.9(H) 0.2 - 0.8 K/cumm [facility] Eosinophil abs 0.0 0.0 - 0.5 K/cumm [facility] Basophil abs 0.1 0.0 - 0.1 K/cumm [facility] Neutrophil pct 51.2 % [facility] Comment: Interpretive Data Percent cell count reference ranges are not reported, since discordance with absolute values may lead to misinterpretation of CBC data. Current Interpretive Data was last revised on 2017. Imm gran pct 0.4 % [facility] Comment: Interpretive Data Percent cell count reference ranges are not reported, since discordance with absolute values may lead to misinterpretation of CBC data. Current Interpretive Data was last revised on 2017. Lymphocyte pct 36.4 % [facility] Comment: Interpretive Data Percent cell count reference ranges are not reported, since discordance with absolute values may lead to misinterpretation of CBC data. Current Interpretive Data was last revised on 2017. Monocyte pct 10.6 % [facility] Comment: Interpretive Data Percent cell count reference ranges are not reported, since discordance with absolute values may lead to misinterpretation of CBC data. Current Interpretive Data was last revised on 2017. Eosinophil pct 0.5 % [facility] Comment: Interpretive Data Percent cell [...] ORDERABLES Fin al Result Performing Organization Address City/[facility]/ZIP Co de Phone Number ETHAN STAHL [address] [place] [place] [address] * (ABNORMAL) CBC with auto differential (10/21/2024 8:02 PM CDT) WBC 8.1 3.8 - 9.9 K/cumm Hgb 16.3 13.0 - 17.5 g/dL [facility] Hct 49.6 38.9 - 50.3 % [facility] Plt 348 150 - 400 K/cumm [facility] MPV 9.5 9.1 - 12.3 fL [facility] RBC 5.01 4.30 - 5.80 M/cumm [facility] MCV 99.0(H) 81.3 - 96.4 fL [facility] MCH 32.5 27.1 - 33.3 pg [facility] MCHC 32.9 32.3 - 35.7 g/dL [facility] RDW CV 13.0 11.1 - 14.9 % [facility] RDW SD 47.5 35.7 - 48.1 fL [facility] NRBC abs 0.00 0.00 - 0.01 K/cumm [facility] Blood Venous blood specimen / Unknown 10/21/2024 8:02 PM CDT 10/21/2024 8:02 PM CDT Grayson Donnelly MD LAB BLOOD ORDERABLES Fin al Result Performing Organization Address City/[facility]/ZIP Co de Phone Number ETHAN STAHL [address] [place] [address] * Ammonia (10/21/2024 8:02 PM CDT) Ammonia 30 <=50 mcmol/L Blood 10/21/2024 8:02 PM CDT 10/21/2024 8:02 PM CDT Grayson Donnelly MD LAB BLOOD ORDERABLES Fin al Result Performing Organization Address [facility] Co de Phone Number ETHAN STAHL [address] [place] [address] * (ABNORMAL) Ethanol (10/21/2024 8:02 PM CDT) [...] ORDERABLES Fin al Result Performing Organization Address [facility] de Phone Number ETHAN STA[address] [place] [address] * (ABNORMAL) Comprehensive metabolic panel (10/21/2024 8:02 [...] ORDERABLES Yash banegas Result Performing Organization Address City/[facility] Co de Phone Number [facility] [address] [employer] [facility] [place] [address] * ECG 12 lead (10/21/2024 7:21 PM CDT) 10/21/2024 7:21 PM CDT Narrative [facility] - 10/22/2024 11:27 PM CDT Vent Rate: 116 bpm RR Interval: 515 msec [place] Interval: 164 msec QRS Duration: 95 msec QT Interval: 307 msec QTC Interval: 376 msec P-R-T Hugo: 58 - -13 - 46 degrees IMPRESSION: SINUS TACHYCARDIA ABNORMAL RHYTHM ECG Electronically Signed By: Dr. Adriana Hernandez [facility] Chuy Cabral MD ECG ORDERABLES Lanette bartholomew Result Performing Organization Address City/[facility]/ZIP Co de Phone Number [facility] [employer] from Last [address] [place] [address] [place] [address] CARE [facility] * Guarantor: Bryce Sandhu Account Type Relation to Patient Date of Phone Billing Address Personal/Family Self 1970 [address] [address] Advance Directives For more information, please contact: [phone] * Full Code (Latest Code Status on File) Date Activated Date Inactivated Comments 12/17/2024 1:49 PM 12/20/2024 5:14 PM * Full Code Date Activated Date Inactivated Comments 10/30/2024 2:54 PM 11/03/2024 9:58 PM * Full Code Date Activated Date Inactivated Comments 10/22/2024 1:28 AM 10/25/2024 7:31 PM * Full Code Date Activated Date Inactivated Comments 10/10/2024 12:20 PM 10/13/2024 5:59 PM Care Teams Quantitative Analyst Marketing Relationship Specialty Start Date End Date Weston Mantilla DO PCP - General Family Medicine 09/03/23 Kimberli Collins DPM [address] [place] [id number] Consulting Physician Foot and Ankle Surg 09/14/23
[2025-01-21] MEDS: FOLIC ACID 1 MG TABLET PO (08:22)
[2025-01-21] MEDS: PANTOPRAZOLE 40 MG TABLET PO (08:22)
[2025-01-21] MEDS: amLODIPine BESYLATE 10 MG TABLET PO (08:22)
[2025-01-21] MEDS: MAGNESIUM OXIDE 400 MG TABLET PO (08:22)
[2025-01-21] MEDS: THIAMINE HCL 100 MG TABLET PO (08:22)
[2025-01-21] MEDS: lisinopriL 20 MG TABLET PO (08:23)
[2025-01-21] MEDS: METOPROLOL TARTRATE 50 MG TAB PO ×2 (08:23→20:01)
[2025-01-21] MEDS: ONDANSETRON INJ 4 MG/2 ML VIAL IV PUSH (08:56)
[2025-01-21] MEDS: ENOXAPARIN 40 MG/0.4 ML SYRINGE SUB-Q (08:56)
[2025-01-21 11:42] LABS: Glucose Point of Care 68 mg/dl (65-105)
[2025-01-21 11:56] LABS: Glucose Point of Care 104 mg/dl (65-105)
[2025-01-21] MEDS: NICOTINE (*PBKC) 21 MG PATCH 1 PATCH TRANSDERM (12:56)
[2025-01-21] MEDS: LOPERAMIDE HCL 2 MG CAPSULE PO (13:07)
--- NOTE | 2025-01-21 17:04 | P.PNIM_ITS ---
Progress Note: A&P Assessment and Plan (1) Alcohol withdrawal: Qualifiers: Complication of substance-induced condition: uncomplicated Qualified Code(s): F10.230 - Alcohol dependence with withdrawal, uncomplicated Code(s): F10.239 - Alcohol dependence with withdrawal, unspecified Status: Acute (2) Anxiety and depression: Code(s): F41.9 - Anxiety disorder, unspecified; F32.9 - Major depressive disorder, single episode, unspecified Status: Acute (3) PTSD (post-traumatic stress disorder): Code(s): F43.10 - Post-traumatic stress disorder, unspecified Status: Acute (4) Alcohol intoxication: Code(s): F10.929 - Alcohol use, unspecified with intoxication, unspecified Status: Acute (5) Essential hypertension: Code(s): I10 - Essential (primary) hypertension Status: Acute (6) Hypomagnesemia: Code(s): E83.42 - Hypomagnesemia Status: Acute (7) Nicotine use: Code(s): Z72.0 - Tobacco use Status: Acute (8) Leukocytosis: Qualifiers: Leukocytosis type: leukemoid reaction Qualified Code(s): D72.823 - Leukemoid reaction Code(s): D72.829 - Elevated white blood cell count, unspecified Status: Acute Plan Patient is going through active alcohol withdrawal. His CIWA scores elevated in climbing. Will proceed with phenobarbital pushes. The patient responded well after 1st push of 130 mg. Will give 2nd pushes of phenobarbital. Librium is also been ordered is scheduled with Ativan 2 mg q.3 hours. CIWA scores greater than 15. Will check CIWA scores every 2 hours if CIWA score greater than 15 and every 4 hours if less than 15. Will provide thiamin and folic acid supplementation. 0 provide Zofran as needed for nausea. Patient does have sinus tachycardia which is not unusual for him when he is having episodes of withdrawal but I suspect there is also some component of volume depletion. Patient did have some ketones in his urine suggesting dehydration. I requested a 2 L of fluid be bolused in the ER. Will then continue maintenance fluids. Patient did receive magnesium and thiamine supplements in the ER. Will resume patient's home magnesium oxide supplement, thiamin and folic acid. Will resume patient's home lisinopril and metoprolol. The patient's med rec also has the patient on Coreg unfortunately we cannot verify the dosing as [facility] cannot feel comfortable giving the patient 2 separate beta- blockers. Will continue with metoprolol and increase dose if needed as metoprolol should help more with the patient's sinus tachycardia. Patient does have some leukocytosis likely secondary to leukemoid reaction. Has no evidence of acute infection. Will repeat CBC and BMP, magnesium and phosphorus tomorrow a.m.. The patient has poor venous access and nursing staff was only able to get an a IV in the patient's foot. Will request vascular access nurse to place ultrasound-guided IV. patient presented with alcohol levels of 339 with history of alcohol withdrawl seizures, patient is placed on CIWA protocol with Librium, vitamin B1 and Folic acid, will monitor electrolytes and patient is monitored with telemetry, it will take 48 to 72 hours for patient to remain in DT precaution, will continue to monitor. Subjective Date/time seen: 01/21/25 17:04 Interval history: wants help detoxing? H&P-Narrative: 54-year-old male with a past medical history of essential hypertension, obesity, depression, PTSD, and anxiety who presented to the ER via EMS because he wanted help detoxing. The patient has had multiple hospitalizations for alcohol intoxication and alcohol withdrawal. The patient has had prior alcohol withdrawal seizures. He most recently went to inpatient rehab in October. He was in rehab for 1 month. He remains sober for 1 month before returning to drinking when he became anxious and stressed out. 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 He usually starts having withdrawal symptoms within 6 hours of stopping drinking. He usually drinks 1-2 5ths of vodka a day. Today/yesterday he had drink at least a 24 pack of [place]. When he arrived to the ER patient had a CIWA score of 16. He reports headache, nausea, at least moderate anxiety and tremors. He was noted to be mildly diaphoretic at the time of my evaluation. His CIWA score at the time my evaluation after he had already received Ativan was 16. Librium had already been ordered. The patient did receive 1 dose of Librium but given his history of rapidly escalating episodes of withdrawal in the past after discussion of risks and benefits the patient agreed to phenobarbital dosing. The patient did has been admitted to IMU and he received thiamin in the ER. Labs also demonstrated mild hypo magnesemia and mildly low CO2 and an elevated anion gap in the ER. He did receive 1 L fluid bolus in the ER I requested the patient receive a 2 L of bolus. He did receive 1 dose of IV thiamin in the ER. Patient was noted to have excoriation and erythema to his hip some buttocks. He stated that he thought it was due to falling. The however the appearance to the patient's skin seems more consistent with excoriation due to moisture or incontinence. The patient admits that he has been having issues with incontinence at home. Patient does smell strongly of urine. patient presented with alcohol levels of 339 with history of alcohol withdrawl seizures, patient is placed on CIWA protocol with Librium, vitamin B1 and Folic acid, will monitor electrolytes and patient is monitored with telemetry, it will take 48 to 72 hours for patient to remain in DT precaution, will continue to monitor. Review of Systems Review of Systems: 12 systems were reviewed with pertinent positives and negatives per HPI. Except as documented in the HPI, all other systems were reviewed and are negative. Exam Narrative: Patient is comfortable, NAD HEENT: eyes are clear and none icteric LUNGS:CTA HEART: RR S1S2 ABD: BS+, Soft and nontender Lower extremities: no edema SKIN: nonjaundiced Neuro: grossly intact. Objective Data Vital Signs Vital Signs: Vital Signs - 24 hr 01/21/25 00:22 01/21/25 02:39 01/21/25 03:01 Temperature 36.4 C Pulse Rate 124 H 127 H 109 H Respiratory Rate 14 14 14 Blood Pressure 179/121 H 158/94 H 160/98 H Pulse Oximetry 92 94 98 Oxygen Delivery Room Air 01/21/25 04:16 01/21/25 04:53 01/21/25 08:00 Temperature 37.2 C Pulse Rate 118 H 105 H Respiratory Rate 21 H Blood Pressure 149/81 H Pulse Oximetry 95 Oxygen Delivery Room Air 01/21/25 08:04 01/21/25 08:23 01/21/25 08:30 Temperature 36.9 C Pulse Rate 116 H 122 H Respiratory Rate 16 Blood Pressure 190/96 H Pulse Oximetry 96 95 Oxygen Delivery Room Air 01/21/25 10:00 01/21/25 11:55 01/21/25 12:00 Temperature 36.8 C Pulse Rate 82 90 93 Respiratory Rate 20 Blood Pressure 168/84 H Pulse Oximetry 93 Oxygen Delivery 01/21/25 14:00 01/21/25 15:59 Temperature 36.9 C Pulse Rate 105 H 90 Respiratory Rate 18 Blood Pressure 147/76 H Pulse Oximetry 98 Oxygen Delivery Intake/Output Intake/Output: Intake & Output 01/18/25 01/19/25 01/20/25 01/21/25 23:59 23:59 23:59 23:59 Intake Total 1580 Output Total 250 Balance 1330 Meds/Results Medications: Active Medications Generic Name Dose Route Start Last Admin Trade Name Freq PRN Reason Stop Dose Admin Amlodipine Besylate 10 mg 01/21/25 09:00 01/21/25 08:22 Amlodipine Besylate 10 Mg Tablet PO 10 mg DAILY DAWOOD Administration Chlordiazepoxide HCl 25 mg 01/21/25 06:00 01/21/25 11:08 Chlordiazepoxide (*Crx) 25 Mg Capsule PO 25 mg Q6HR DAWOOD Administration Enoxaparin Sodium 40 mg 01/21/25 09:00 01/21/25 08:56 Enoxaparin 40 Mg/0.4 Ml Syringe SUB-Q 40 mg DAILY DAWOOD Administration Folic Acid 1 mg 01/21/25 09:00 01/21/25 08:22 Folic Acid 1 Mg Tablet PO 1 mg DAILY DAWOOD Administration Lisinopril 20 mg 01/21/25 09:00 01/21/25 08:23 Lisinopril 20 Mg Tablet PO 20 mg DAILY DAWOOD Administration Loperamide HCl 2 mg 01/21/25 13:01 01/21/25 13:07 Loperamide Hcl 2 Mg Capsule PO 2 mg Q8HR PRN Administration Diarrhea Lorazepam 2 mg 01/21/25 00:52 01/21/25 16:16 Lorazepam Inj (*Crx) 2 Mg/Ml Vial IV PUSH 2 mg Q2H PRN Administration CIWA > 15 Magnesium Oxide 400 mg 01/21/25 09:00 01/21/25 08:22 Magnesium Oxide 400 Mg Tablet PO 400 mg QAM DAWOOD Administration Metoprolol Tartrate 50 mg 01/21/25 09:00 01/21/25 08:23 Metoprolol Tartrate 50 Mg Tab PO 50 mg Q12HR DAWOOD Administration Nicotine 1 patch 01/21/25 09:00 01/21/25 12:56 Nicotine (*Pbkc) 21 Mg Patch TRANSDERM 1 patch DAILY PRN Administration Nicotine withdrawal Ondansetron HCl 4 mg 01/21/25 06:54 01/21/25 08:56 Ondansetron Inj 4 Mg/2 Ml Vial IV PUSH 4 mg Q6H PRN Administration Nausea And Vomiting Pantoprazole Sodium 40 mg 01/21/25 09:00 01/21/25 08:22 Pantoprazole 40 Mg Tablet PO 40 mg QAM DAWOOD Administration Quetiapine Fumarate 400 mg 01/21/25 21:00 Quetiapine Fumarate 100 Mg Tablet PO HS DAWOOD Thiamine HCl 100 mg 01/21/25 09:00 01/21/25 08:22 Thiamine Hcl 100 Mg Tablet PO 100 mg QAM DAWOOD Administration Trazodone HCl 100 mg 01/21/25 21:00 Trazodone Hcl 50 Mg Tablet PO HS DAWOOD Radiology Results: ITS Impressions Hip X-Ray 01/21/25 05:27 Impression: No significant abnormality is seen. Chest X-Ray 01/21/25 05:29 Impression: Normal chest. Labs Labs: Laboratory Results - last 24 hr 01/21/25 01/21/25 01/21/25 01:09 02:02 02:09 WBC 17.9 H RBC 5.02 Hgb 16.3 Hct 49.0 MCV 97.6 MCH 32.5 MCHC 33.3 RDW 12.7 Plt Count 234 D MPV 10.7 H Immature Gran % (Auto) 0.4 Neut % (Auto) 73.4 H Lymph % (Auto) 17.6 L Casey % (Auto) 7.8 Eos % (Auto) 0.2 Baso % (Auto) 0.6 Lymph # (Auto) 3.14 Casey # (Auto) 1.4 H Eos # (Auto) 0.0 Baso # (Auto) 0.1 Abs Immat Gran (auto) 0.07 H Absolute Neuts (auto) 13.1 H Absolute Nucleated RBC 0.000 Nucleated RBC % 0.0 PT 12.9 INR 1.0 Sodium 141 Potassium 4.1 Chloride 103 Carbon Dioxide 19 L Anion Gap 19 H BUN 9 Creatinine 0.76 Estim Creat Clear Calc 117 Estimated GFR > 60 Glucose 93 POC Capillary Glucose 115 H Calcium 9.2 Phosphorus 3.4 Magnesium 1.9 Total Bilirubin 0.4 AST 48 ALT 33 Alkaline Phosphatase 85 Total Protein 8.2 Albumin 5.1 Urine Color Yellow Urine Appearance Clear Urine pH 5.5 Ur Specific Kosse 1.013 Urine Protein 3+ H Urine Glucose (UA) Negative Urine Ketones 1+ H Ur Blood (Man) 1+ H Urine Nitrate Negative Urine Bilirubin Negative Urine Urobilinogen 0.2 Leukocyte Esterase Rfl Negative Urine RBC 0-2 Urine WBC 0-5 Ur Squamous Epith Cells None seen Urine Bacteria None seen Urine Casts 3-5 Urine Opiates Screen Negative Urine Methadone Screen Negative Ur Barbiturates Screen Negative Ur Phencyclidine Scrn Negative Ur Amphetamine Screen Negative U Benzodiazepines Scrn Positive A Urine Cocaine Screen Negative U Cannabinoids Screen Positive A Ethyl Alcohol 217 01/21/25 01/21/25 01/21/25 06:23 11:25 11:48 WBC RBC Hgb Hct MCV MCH MCHC RDW Plt Count MPV Immature Gran % (Auto) Neut % (Auto) Lymph % (Auto) Casey % (Auto) Eos % (Auto) Baso % (Auto) Lymph # (Auto) Casey # (Auto) Eos # (Auto) Baso # (Auto) Abs Immat Gran (auto) Absolute Neuts (auto) Absolute Nucleated RBC Nucleated RBC % PT INR Sodium Potassium Chloride Carbon Dioxide Anion Gap BUN Creatinine Estim Creat Clear Calc Estimated GFR Glucose POC Capillary Glucose 82 68 104 Calcium Phosphorus Magnesium Total Bilirubin AST ALT Alkaline Phosphatase Total Protein Albumin Urine Color Urine Appearance Urine pH Ur Specific Kosse Urine Protein Urine Glucose (UA) Urine Ketones Ur Blood (Man) Urine Nitrate Urine Bilirubin Urine Urobilinogen Leukocyte Esterase Rfl Urine RBC Urine WBC Ur Squamous Epith Cells Urine Bacteria Urine Casts Urine Opiates Screen Urine Methadone Screen Ur Barbiturates Screen Ur Phencyclidine Scrn Ur Amphetamine Screen U Benzodiazepines Scrn Urine Cocaine Screen U Cannabinoids Screen Ethyl Alcohol Quality VTE Prophylaxis VTE prophylaxis: pharmacologic ordered (Lovenox 40 mg subQ daily.)
[2025-01-21 19:02] LABS: Glucose Point of Care 95 mg/dl (65-105)
[2025-01-21] MEDS: QUEtiapine FUMARATE 100 MG TABLET 400 MG PO (20:02)
[2025-01-21] MEDS: traZODone HCL 50 MG TABLET 100 MG PO (23:50)
[2025-01-22] VITALS (13 sets, daily range): BP systolic 112–138; BP diastolic 63–75; PULSE 62–125; RESP 15–20; TEMP 36.6–37.1; O2SAT 93–99
[2025-01-22 00:18] LABS: Glucose Point of Care 90 mg/dl (65-105)
[2025-01-22 04:51] LABS: Basophils Absolute Auto 0.1 K/mm3 (0.0-0.1); Basophils Percent Auto 0.7 % (0.2-1.2); Eosinophils Absolute Auto 0.2 K/mm3 (0-0.3); Eosinophils Percent Auto 2.4 % (0-4.4); Hematocrit 40.1 % (42.0-52.0); Hemoglobin 13.4 g/dL (14.0-18.0); Immature Granulocyte Absolute 0.02 K/mm3 (0.00-0.031); Immature Granulocyte Percent A 0.3 % (0-0.5); Lymphocytes Absolute Auto 2.49 K/mm3 (0.9-3.2); Lymphocytes Percent Auto 34.5 % (18.3-44.2); Mean Corpuscular HGB Conc 33.4 g/dl (32-36); Mean Corpuscular Hemoglobin 32.7 pg (26-34); Mean Corpuscular Volume 97.8 fl (80-100); Mean Platelet Volume 11.2 fl (7.4-10.4); Monocytes Absolute Auto 0.6 K/mm3 (0.1-0.6); Monocytes Percent Auto 8.7 % (2.6-8.5); Neutrophils Absolute Auto 3.9 K/mm3 (1.3-6.7); Neutrophils Percent Auto 53.4 % (45.5-73.1); Platelet Count Result 155 k/mm3 (150-375); Red Cell Distribution Width 12.4 % (11.5-14.5); White Blood Count 7.2 K/mm3 (4.5-10.0)
[2025-01-22 05:13] LABS: Alanine Aminotransferase 35 U/L (6-50); Albumin Level 3.9 g/dL (3.5-5.1); Alkaline Phosphatase 64 U/L (38-126); Anion Gap 10 mmol/L (4-12); Aspartate Amino Transferase 45 U/L (17-59); Bilirubin,Total 1.1 mg/dL (0.2-1.3); Blood Urea Nitrogen 5 mg/dL (9-20); Carbon Dioxide 23 mmol/L (22-30); Chloride 100 mmol/L (98-107); Estimated CRCL calculation 130 ml/min; Estimated Glomerular Filt Rate > 60; Glucose 82 mg/dL (65-110); Potassium 3.5 mmol/L (3.4-5.0); Sodium 133 mmol/L (137-145); Total Protein 6.5 g/dL (6.3-8.2)
[2025-01-22 05:42] LABS: INR 1.1; Prothrombin Time 14.1 Seconds (11.1-14.7)
[2025-01-22 05:43] LABS: Partial Thromboplastin Time 24.8 Seconds (22.3-36.8)
[2025-01-22] MEDS: chlordiazePOXIDE (*CRX) 25 MG CAPSULE PO ×3 (06:02→17:02)
[2025-01-22 06:40] LABS: Glucose Point of Care 82 mg/dl (65-105)
[2025-01-22] MEDS: lisinopriL 20 MG TABLET PO (08:20)
[2025-01-22] MEDS: THIAMINE HCL 100 MG TABLET PO (08:20)
[2025-01-22] MEDS: amLODIPine BESYLATE 10 MG TABLET PO (08:20)
[2025-01-22] MEDS: PANTOPRAZOLE 40 MG TABLET PO (08:20)
[2025-01-22] MEDS: FOLIC ACID 1 MG TABLET PO (08:20)
[2025-01-22] MEDS: ENOXAPARIN 40 MG/0.4 ML SYRINGE SUB-Q (08:20)
[2025-01-22] MEDS: LORazepam INJ (*CRX) 2 MG/ML VIAL IV PUSH (08:20)
[2025-01-22] MEDS: LOPERAMIDE HCL 2 MG CAPSULE PO (08:20)
[2025-01-22] MEDS: MAGNESIUM OXIDE 400 MG TABLET PO (08:20)
[2025-01-22] MEDS: METOPROLOL TARTRATE 50 MG TAB PO ×2 (08:20→20:31)
[2025-01-22] MEDS: POTASSIUM CHLORIDE 20 MEQ ER TABLET 40 MEQ PO (11:03)
[2025-01-22] MEDS: ACETAMINOPHEN 325 MG TABLET 650 MG PO ×2 (11:25→20:31)
[2025-01-22 11:26] LABS: Glucose Point of Care 104 mg/dl (65-105)
[2025-01-22] MEDS: LORazepam (*CRX) 0.5 MG TABLET PO ×2 (13:16→19:13)
--- NOTE | 2025-01-22 17:39 | P.PNIM_ITS ---
Progress Note: A&P Assessment and Plan (1) Alcohol withdrawal: Qualifiers: Complication of substance-induced condition: uncomplicated Qualified Code(s): F10.230 - Alcohol dependence with withdrawal, uncomplicated Code(s): F10.239 - Alcohol dependence with withdrawal, unspecified Status: Acute (2) Anxiety and depression: Code(s): F41.9 - Anxiety disorder, unspecified; F32.9 - Major depressive disorder, single episode, unspecified Status: Acute (3) PTSD (post-traumatic stress disorder): Code(s): F43.10 - Post-traumatic stress disorder, unspecified Status: Acute (4) Alcohol intoxication: Code(s): F10.929 - Alcohol use, unspecified with intoxication, unspecified Status: Acute (5) Essential hypertension: Code(s): I10 - Essential (primary) hypertension Status: Acute (6) Hypomagnesemia: Code(s): E83.42 - Hypomagnesemia Status: Acute (7) Nicotine use: Code(s): Z72.0 - Tobacco use Status: Acute (8) Leukocytosis: Qualifiers: Leukocytosis type: leukemoid reaction Qualified Code(s): D72.823 - Leukemoid reaction Code(s): D72.829 - Elevated white blood cell count, unspecified Status: Acute Plan Patient is going through active alcohol withdrawal. His CIWA scores elevated in climbing. Will proceed with phenobarbital pushes. The patient responded well after 1st push of 130 mg. Will give 2nd pushes of phenobarbital. Librium is also been ordered is scheduled with Ativan 2 mg q.3 hours. CIWA scores greater than 15. Will check CIWA scores every 2 hours if CIWA score greater than 15 and every 4 hours if less than 15. Will provide thiamin and folic acid supplementation. 0 provide Zofran as needed for nausea. Patient does have sinus tachycardia which is not unusual for him when he is having episodes of withdrawal but I suspect there is also some component of volume depletion. Patient did have some ketones in his urine suggesting dehydration. I requested a 2 L of fluid be bolused in the ER. Will then continue maintenance fluids. Patient did receive magnesium and thiamine supplements in the ER. Will resume patient's home magnesium oxide supplement, thiamin and folic acid. Will resume patient's home lisinopril and metoprolol. The patient's med rec also has the patient on Coreg unfortunately we cannot verify the dosing as [facility] cannot feel comfortable giving the patient 2 separate beta- blockers. Will continue with metoprolol and increase dose if needed as metoprolol should help more with the patient's sinus tachycardia. Patient does have some leukocytosis likely secondary to leukemoid reaction. Has no evidence of acute infection. Will repeat CBC and BMP, magnesium and phosphorus tomorrow a.m.. The patient has poor venous access and nursing staff was only able to get an a IV in the patient's foot. Will request vascular access nurse to place ultrasound-guided IV. patient presented with alcohol levels of 339 with history of alcohol withdrawl seizures, patient is placed on CIWA protocol with Librium, vitamin B1 and Folic acid, patent remains clinically stable does not show any sign or symptoms of withdrawl, will monitor electrolytes and patient is monitored with telemetry, it will take 48 to 72 hours for patient to remain in DT precaution, will continue to monitor. Subjective Date/time seen: 01/22/25 17:39 Interval history: wants help detoxing? H&P-Narrative: 54-year-old male with a past medical history of essential hypertension, obesity, depression, PTSD, and anxiety who presented to the ER via EMS because he wanted help detoxing. The patient has had multiple hospitalizations for alcohol intoxication and alcohol withdrawal. The patient has had prior alcohol withdrawal seizures. He most recently went to inpatient rehab in October. He was in rehab for 1 month. He remains sober for 1 month before returning to drinking when he became anxious and stressed out. 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 He usually starts having withdrawal symptoms within 6 hours of stopping drinking. He usually drinks 1-2 5ths of vodka a day. Today/yesterday he had drink at least a 24 pack of [place] Light. When he arrived to the ER patient had a CIWA score of 16. He reports headache, nausea, at least moderate anxiety and tremors. He was noted t o be mildly diaphoretic at the time of my evaluation. His CIWA score at the time my evaluation after he had already received Ativan was 16. Librium had already been ordered. The patient did receive 1 dose of Librium but given his history of rapidly escalating episodes of withdrawal in the past after discussion of risks and benefits the patient agreed to phenobarbital dosing. The patient did has been admitted to IMU and he received thiamin in the ER. Labs also demonstrated mild hypo magnesemia and mildly low CO2 and an elevated anion gap in the ER. He did receive 1 L fluid bolus in the ER I requested the patient receive a 2 L of bolus. He did receive 1 dose of IV thiamin in the ER. Patient was noted to have excoriation and erythema to his hip some buttocks. He stated that he thought it was due to falling. The however the appearance to the patient's skin seems more consistent with excoriation due to moisture or incontinence. The patient admits that he has been having issues with incontinence at home. Patient does smell strongly of urine. patient presented with alcohol levels of 339 with history of alcohol withdrawl seizures, patient is placed on CIWA protocol with Librium, vitamin B1 and Folic acid, patent remains clinically stable does not show any sign or symptoms of withdrawl, will monitor electrolytes and patient is monitored with telemetry, it will take 48 to 72 hours for patient to remain in DT precaution, will continue to monitor. Review of Systems Review of Systems: 12 systems were reviewed with pertinent positives and negatives per HPI. Except as documented in the HPI, all other systems were reviewed and are negative. Exam Narrative: Patient is comfortable, NAD HEENT: eyes are clear and none icteric LUNGS:CTA HEART: RR S1S2 ABD: BS+, Soft and nontender Lower extremities: no edema SKIN: nonjaundiced Neuro: grossly intact. Objective Data Vital Signs Vital Signs: Vital Signs - 24 hr 01/21/25 18:00 01/21/25 20:00 01/21/25 20:00 Temperature 36.6 C Pulse Rate 101 H 116 H Respiratory Rate 16 Blood Pressure 168/99 H Pulse Oximetry 99 99 Oxygen Delivery Room Air Oxygen Flow Rate 01/21/25 20:00 01/21/25 20:01 01/21/25 21:45 Temperature Pulse Rate 114 H 109 H 83 Respiratory Rate Blood Pressure Pulse Oximetry 91 Oxygen Delivery Autopap Oxygen Flow Rate 01/21/25 21:45 01/21/25 22:00 01/21/25 23:49 Temperature 36.7 C Pulse Rate 83 82 86 Respiratory Rate 20 15 Blood Pressure 95/59 L Pulse Oximetry 91 94 Oxygen Delivery Autopap Oxygen Flow Rate 2 06/12/25 00:00 01/22/25 00:00 01/22/25 02:00 Temperature Pulse Rate 86 89 89 Respiratory Rate Blood Pressure Pulse Oximetry 94 Oxygen Delivery Room Air Oxygen Flow Rate 01/22/25 02:30 01/22/25 04:00 01/22/25 04:00 Temperature Pulse Rate 101 H 62 Respiratory Rate Blood Pressure Pulse Oximetry 93 Oxygen Delivery Autopap Room Air Oxygen Flow Rate 01/22/25 04:00 01/22/25 06:00 01/22/25 08:00 Temperature 37.1 C Pulse Rate 89 85 117 H Respiratory Rate 16 Blood Pressure 112/63 Pulse Oximetry 94 Oxygen Delivery Oxygen Flow Rate 01/22/25 08:13 01/22/25 08:20 01/22/25 10:00 Temperature 36.6 C Pulse Rate 99 125 H 81 Respiratory Rate 18 Blood Pressure 123/69 Pulse Oximetry 97 Oxygen Delivery Oxygen Flow Rate 01/22/25 15:43 01/22/25 16:00 Temperature 36.6 C Pulse Rate 102 H 92 Respiratory Rate 20 Blood Pressure 121/68 Pulse Oximetry 98 Oxygen Delivery Oxygen Flow Rate Intake/Output Intake/Output: Intake & Output 01/19/25 01/20/25 01/21/25 01/22/25 23:59 23:59 23:59 23:59 Intake Total 2320 980 Output Total 1050 Balance 1270 980 Meds/Results Medications: Active Medications Generic Name Dose Route Start Last Admin Trade Name Freq PRN Reason Stop Dose Admin Acetaminophen 650 mg 01/22/25 10:58 01/22/25 11:25 Acetaminophen 325 Mg Tablet PO 650 mg Q6H PRN Administration Mild Pain (1-3) or Fever Amlodipine Besylate 10 mg 01/21/25 09:00 01/22/25 08:20 Amlodipine Besylate 10 Mg Tablet PO 10 mg DAILY DAWOOD Administration Chlordiazepoxide HCl 25 mg 01/21/25 06:00 01/22/25 17:02 Chlordiazepoxide (*Crx) 25 Mg Capsule PO 25 mg Q6HR DAWOOD Administration Enoxaparin Sodium 40 mg 01/21/25 09:00 01/22/25 08:20 Enoxaparin 40 Mg/0.4 Ml Syringe SUB-Q 40 mg DAILY DAWOOD Administration Folic Acid 1 mg 01/21/25 09:00 01/22/25 08:20 Folic Acid 1 Mg Tablet PO 1 mg DAILY DAWOOD Administration Lisinopril 20 mg 01/21/25 09:00 01/22/25 08:20 Lisinopril 20 Mg Tablet PO 20 mg DAILY DAWOOD Administration Loperamide HCl 2 mg 01/21/25 13:01 01/22/25 08:20 Loperamide Hcl 2 Mg Capsule PO 2 mg Q8HR PRN Administration Diarrhea Lorazepam 0.5 mg 01/22/25 10:56 01/22/25 13:16 Lorazepam (*Crx) 0.5 Mg Tablet PO 0.5 mg Q6H PRN Administration Withdrawal Magnesium Oxide 400 mg 01/21/25 09:00 01/22/25 08:20 Magnesium Oxide 400 Mg Tablet PO 400 mg QAM DAWOOD Administration Metoprolol Tartrate 50 mg 01/21/25 09:00 01/22/25 08:20 Metoprolol Tartrate 50 Mg Tab PO 50 mg Q12HR DAWOOD Administration Nicotine 1 patch 01/21/25 09:00 01/21/25 12:56 Nicotine (*Pbkc) 21 Mg Patch TRANSDERM 1 patch DAILY PRN Administration Nicotine withdrawal Ondansetron HCl 4 mg 01/21/25 06:54 01/21/25 08:56 Ondansetron Inj 4 Mg/2 Ml Vial IV PUSH 4 mg Q6H PRN Administration Nausea And Vomiting Pantoprazole Sodium 40 mg 01/21/25 09:00 01/22/25 08:20 Pantoprazole 40 Mg Tablet PO 40 mg QAM DAWOOD Administration Quetiapine Fumarate 400 mg 01/21/25 21:00 01/21/25 20:02 Quetiapine Fumarate 100 Mg Tablet PO 400 mg HS DAWOOD Administration Thiamine HCl 100 mg 01/21/25 09:00 01/22/25 08:20 Thiamine Hcl 100 Mg Tablet PO 100 mg QAM DAWOOD Administration Trazodone HCl 100 mg 01/21/25 21:00 01/21/25 23:50 Trazodone Hcl 50 Mg Tablet PO 100 mg HS DAWOOD Administration Radiology Results: ITS Impressions Hip X-Ray 01/21/25 05:27 Impression: No significant abnormality is seen. Chest X-Ray 01/21/25 05:29 Impression: Normal chest. Labs Labs: Laboratory Results - last 24 hr 01/21/25 01/22/25 01/22/25 18:58 00:13 04:22 WBC 7.2 RBC 4.10 L Hgb 13.4 L Hct 40.1 L MCV 97.8 MCH 32.7 MCHC 33.4 RDW 12.4 Plt Count 155 MPV 11.2 H Immature Gran % (Auto) 0.3 Neut % (Auto) 53.4 Lymph % (Auto) 34.5 Stearns % (Auto) 8.7 H Eos % (Auto) 2.4 Baso % (Auto) 0.7 Lymph # (Auto) 2.49 Stearns # (Auto) 0.6 Eos # (Auto) 0.2 Baso # (Auto) 0.1 Abs Immat Gran (auto) 0.02 Absolute Neuts (auto) 3.9 Absolute Nucleated RBC 0.000 Nucleated RBC % 0.0 PT 14.1 INR 1.1 APTT 24.8 Sodium 133 L Potassium 3.5 Chloride 100 Carbon Dioxide 23 Anion Gap 10 BUN 5 L Creatinine 0.65 L Estim Creat Clear Calc 130 Estimated GFR > 60 Glucose 82 POC Capillary Glucose 95 90 Calcium 9.0 Phosphorus 3.0 Magnesium 2.0 Total Bilirubin 1.1 AST 45 ALT 35 Alkaline Phosphatase 64 Total Protein 6.5 Albumin 3.9 TSH (Reflex) 2.930 01/22/25 01/22/25 06:35 11:22 WBC RBC Hgb Hct MCV MCH MCHC RDW Plt Count MPV Immature Gran % (Auto) Neut % (Auto) Lymph % (Auto) Stearns % (Auto) Eos % (Auto) Baso % (Auto) Lymph # (Auto) Stearns # (Auto) Eos # (Auto) Baso # (Auto) Abs Immat Gran (auto) Absolute Neuts (auto) Absolute Nucleated RBC Nucleated RBC % PT INR APTT Sodium Potassium Chloride Carbon Dioxide Anion Gap BUN Creatinine Estim Creat Clear Calc Estimated GFR Glucose POC Capillary Glucose 82 104 Calcium Phosphorus Magnesium Total Bilirubin AST ALT Alkaline Phosphatase Total Protein Albumin TSH (Reflex) Quality VTE Prophylaxis VTE prophylaxis: pharmacologic ordered (Lovenox 40 mg subQ daily.)
[2025-01-22 17:59] LABS: Glucose Point of Care 133 mg/dl (65-105)
[2025-01-22] MEDS: traZODone HCL 50 MG TABLET 100 MG PO (20:31)
[2025-01-22] MEDS: QUEtiapine FUMARATE 100 MG TABLET 400 MG PO (20:31)
[2025-01-23] VITALS (17 sets, daily range): BP systolic 107–150; BP diastolic 62–81; PULSE 82–104; RESP 16–20; TEMP 36.3–37; O2SAT 96–100
[2025-01-23 00:03] LABS: Glucose Point of Care 151 mg/dl (65-105)
[2025-01-23] MEDS: LORazepam (*CRX) 0.5 MG TABLET PO ×2 (00:47→08:46)
[2025-01-23 05:04] LABS: Hematocrit 37.3 % (42.0-52.0); Hemoglobin 12.3 g/dL (14.0-18.0); Mean Corpuscular Hemoglobin 32.4 pg (26-34); Mean Corpuscular Volume 98.2 fl (80-100); Mean Platelet Volume 11.1 fl (7.4-10.4); Platelet Count Result 146 k/mm3 (150-375); Red Cell Distribution Width 12.4 % (11.5-14.5)
[2025-01-23 05:24] LABS: Alanine Aminotransferase 37 U/L (6-50); Albumin Level 3.7 g/dL (3.5-5.1); Alkaline Phosphatase 65 U/L (38-126); Anion Gap 7 mmol/L (4-12); Aspartate Amino Transferase 35 U/L (17-59); Bilirubin,Total 0.5 mg/dL (0.2-1.3); Blood Urea Nitrogen 9 mg/dL (9-20); Calcium 9.3 mg/dL (8.4-10.2); Carbon Dioxide 28 mmol/L (22-30); Chloride 102 mmol/L (98-107); Estimated CRCL calculation 110 ml/min; Estimated Glomerular Filt Rate > 60; Glucose 90 mg/dL (65-110); Magnesium 1.6 mg/dL (1.6-2.3); Potassium 3.4 mmol/L (3.4-5.0); Sodium 137 mmol/L (137-145); Total Protein 6.1 g/dL (6.3-8.2)
[2025-01-23] MEDS: chlordiazePOXIDE (*CRX) 25 MG CAPSULE PO ×2 (06:11)
--- NOTE | 2025-01-23 08:40 | P.PNIM_ITS ---
Progress Note: A&P Assessment and Plan (1) Alcohol withdrawal: Qualifiers: Complication of substance-induced condition: uncomplicated Qualified Code(s): F10.230 - Alcohol dependence with withdrawal, uncomplicated Code(s): F10.239 - Alcohol dependence with withdrawal, unspecified Status: Acute (2) Anxiety and depression: Code(s): F41.9 - Anxiety disorder, unspecified; F32.9 - Major depressive disorder, single episode, unspecified Status: Acute (3) PTSD (post-traumatic stress disorder): Code(s): F43.10 - Post-traumatic stress disorder, unspecified Status: Acute (4) Alcohol intoxication: Code(s): F10.929 - Alcohol use, unspecified with intoxication, unspecified Status: Acute (5) Essential hypertension: Code(s): I10 - Essential (primary) hypertension Status: Acute (6) Hypomagnesemia: Code(s): E83.42 - Hypomagnesemia Status: Acute (7) Nicotine use: Code(s): Z72.0 - Tobacco use Status: Acute (8) Leukocytosis: Qualifiers: Leukocytosis type: leukemoid reaction Qualified Code(s): D72.823 - Leukemoid reaction Code(s): D72.829 - Elevated white blood cell count, unspecified Status: Acute Plan 54-year-old male with a past medical history of essential hypertension, obesity, depression, PTSD, and anxiety who presented to the ER via EMS because he wanted help detoxing. The patient has had multiple hospitalizations for alcohol intoxication and alcohol withdrawal. The patient has had prior alcohol withdrawal seizures. He most recently went to inpatient rehab in October. He was in rehab for 1 month. He remains sober for 1 month before returning to drinking when he became anxious and stressed out. 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 He usually starts having withdrawal symptoms within 6 hours of stopping drinking. He usually drinks 1-2 5ths of vodka a day. He had drink at least a 24 pack of [place] Light. When he arrived to the ER patient had a CIWA score of 16. He reports headache, nausea, at least moderate anxiety and tremors. He is admitted at this setting. His alcohol level on admission 217. Alcohol withdrawal continue to monitor CIWA and follow CIWA protocol. He also had received phenobarbital in the ER. Continue Librium and Ativan as needed. Continue folic acid and thiamine supplementation. Increase Librium to 50 q.8 Labs also demonstrated mild hypo magnesemia and mildly low CO2 and an elevated anion gap in the ER. He did receive 1 L fluid bolus in the ER Patient was noted to have excoriation and erythema to his hip some buttocks. He stated that he thought it was due to falling. The however the appearance to the patient's skin seems more consistent with excoriation due to moisture or incontinence. The patient admits that he has been having issues with incontinence at home. Patient does smell strongly of urine. Hypertension on amlodipine lisinopril metoprolol Leukocytosis on arrival to the ED now resolved. DVT prophylaxis SCDs/Lovenox Code status full code Subjective Date/time seen: 01/23/25 08:40 Interval history: Patient reported to be agitated. CIWA score reviewed. Discussed with nursing staff. Overall feels better. Day 3 since last drink Review of Systems Review of Systems: All systems reviewed & are unremarkable except as noted in HPI and below Exam Narrative: Patient is comfortable, NAD HEENT: eyes are clear and none icteric LUNGS:CTA HEART: RR S1S2 ABD: BS+, Soft and nontender Lower extremities: no edema SKIN: nonjaundiced Neuro: grossly intact. Tremulous but calm, cooperative Objective Data Vital Signs Vital Signs: Vital Signs - 24 hr 01/22/25 10:00 01/22/25 15:43 01/22/25 16:00 Temperature 97.9 F Pulse Rate 81 102 H 92 Respiratory Rate 20 Blood Pressure 121/68 Pulse Oximetry 98 Oxygen Delivery 01/22/25 20:00 01/22/25 20:00 01/22/25 20:00 Temperature 98.5 F Pulse Rate 93 88 Respiratory Rate 15 Blood Pressure 138/75 Pulse Oximetry 99 Oxygen Delivery Room Air 01/22/25 20:31 01/23/25 00:00 01/23/25 00:00 Temperature 98.6 F Pulse Rate 98 94 94 Respiratory Rate 16 Blood Pressure 107/70 Pulse Oximetry 98 Oxygen Delivery 01/23/25 04:00 01/23/25 07:50 Temperature 97.6 F Pulse Rate 82 88 Respiratory Rate 20 Blood Pressure 143/71 H Pulse Oximetry 96 Oxygen Delivery Intake/Output Intake/Output: Intake & Output 01/20/25 01/21/25 01/22/25 01/23/25 23:59 23:59 23:59 23:59 Intake Total 2320 1720 2680 Output Total 1050 900 Balance 1270 1720 1780 Meds/Results Medications: Active Medications Generic Name Dose Route Start Last Admin Trade Name Freq PRN Reason Stop Dose Admin Acetaminophen 650 mg 01/22/25 10:58 01/22/25 20:31 Acetaminophen 325 Mg Tablet PO 650 mg Q6H PRN Administration Mild Pain (1-3) or Fever Amlodipine Besylate 10 mg 01/21/25 09:00 01/22/25 08:20 Amlodipine Besylate 10 Mg Tablet PO 10 mg DAILY DAWOOD Administration Chlordiazepoxide HCl 25 mg 01/21/25 06:00 01/23/25 06:11 Chlordiazepoxide (*Crx) 25 Mg Capsule PO 25 mg Q6HR DAWOOD Administration Enoxaparin Sodium 40 mg 01/21/25 09:00 01/22/25 08:20 Enoxaparin 40 Mg/0.4 Ml Syringe SUB-Q 40 mg DAILY DAWOOD Administration Folic Acid 1 mg 01/21/25 09:00 01/22/25 08:20 Folic Acid 1 Mg Tablet PO 1 mg DAILY DAWOOD Administration Lisinopril 20 mg 01/21/25 09:00 01/22/25 08:20 Lisinopril 20 Mg Tablet PO 20 mg DAILY DAWOOD Administration Loperamide HCl 2 mg 01/21/25 13:01 01/22/25 08:20 Loperamide Hcl 2 Mg Capsule PO 2 mg Q8HR PRN Administration Diarrhea Lorazepam 0.5 mg 01/22/25 10:56 01/23/25 00:47 Lorazepam (*Crx) 0.5 Mg Tablet PO 0.5 mg Q6H PRN Administration Withdrawal Magnesium Oxide 400 mg 01/21/25 09:00 01/22/25 08:20 Magnesium Oxide 400 Mg Tablet PO 400 mg QAM DAWOOD Administration Metoprolol Tartrate 50 mg 01/21/25 09:00 01/22/25 20:31 Metoprolol Tartrate 50 Mg Tab PO 50 mg Q12HR DAWOOD Administration Nicotine 1 patch 01/21/25 09:00 01/21/25 12:56 Nicotine (*Pbkc) 21 Mg Patch TRANSDERM 1 patch DAILY PRN Administration Nicotine withdrawal Ondansetron HCl 4 mg 01/21/25 06:54 01/21/25 08:56 Ondansetron Inj 4 Mg/2 Ml Vial IV PUSH 4 mg Q6H PRN Administration Nausea And Vomiting Pantoprazole Sodium 40 mg 01/21/25 09:00 01/22/25 08:20 Pantoprazole 40 Mg Tablet PO 40 mg QAM DAWOOD Administration Quetiapine Fumarate 400 mg 01/21/25 21:00 01/22/25 20:31 Quetiapine Fumarate 100 Mg Tablet PO 400 mg HS DAWOOD Administration Thiamine HCl 100 mg 01/21/25 09:00 01/22/25 08:20 Thiamine Hcl 100 Mg Tablet PO 100 mg QAM DAWOOD Administration Trazodone HCl 100 mg 01/21/25 21:00 01/22/25 20:31 Trazodone Hcl 50 Mg Tablet PO 100 mg HS DAWOOD Administration Radiology Results: ITS Impressions Hip X-Ray 01/21/25 05:27 Impression: No significant abnormality is seen. Chest X-Ray 01/21/25 05:29 Impression: Normal chest. Labs Labs: Laboratory Results - last 24 hr 01/22/25 01/22/25 01/22/25 11:22 17:53 23:52 WBC RBC Hgb Hct MCV MCH MCHC RDW Plt Count MPV Sodium Potassium Chloride Carbon Dioxide Anion Gap BUN Creatinine Estim Creat Clear Calc Estimated GFR Glucose POC Capillary Glucose 104 133 H 151 H Calcium Magnesium Total Bilirubin AST ALT Alkaline Phosphatase Total Protein Albumin 01/23/25 04:41 WBC 5.0 RBC 3.80 L Hgb 12.3 L Hct 37.3 L MCV 98.2 MCH 32.4 MCHC 33.0 RDW 12.4 Plt Count 146 L MPV 11.1 H Sodium 137 Potassium 3.4 Chloride 102 Carbon Dioxide 28 Anion Gap 7 BUN 9 Creatinine 0.78 Estim Creat Clear Calc 110 Estimated GFR > 60 Glucose 90 POC Capillary Glucose Calcium 9.3 Magnesium 1.6 Total Bilirubin 0.5 AST 35 ALT 37 Alkaline Phosphatase 65 Total Protein 6.1 L Albumin 3.7
[2025-01-23] MEDS: MAGNESIUM OXIDE 400 MG TABLET PO (08:45)
[2025-01-23] MEDS: PANTOPRAZOLE 40 MG TABLET PO (08:45)
[2025-01-23] MEDS: amLODIPine BESYLATE 10 MG TABLET PO (08:45)
[2025-01-23] MEDS: THIAMINE HCL 100 MG TABLET PO (08:45)
[2025-01-23] MEDS: METOPROLOL TARTRATE 50 MG TAB PO ×2 (08:46→22:06)
[2025-01-23] MEDS: lisinopriL 20 MG TABLET PO (08:46)
[2025-01-23] MEDS: FOLIC ACID 1 MG TABLET PO (08:46)
[2025-01-23] MEDS: ENOXAPARIN 40 MG/0.4 ML SYRINGE SUB-Q (08:49)
[2025-01-23] MEDS: MAGNESIUM SULF 2 GM/WATER 50ML 2 GM/50 ML BAG IVPB (09:00)
[2025-01-23] MEDS: POTASSIUM CHLORIDE 20 MEQ ER TABLET 40 MEQ PO (09:00)
[2025-01-23 11:23] LABS: Glucose Point of Care 101 mg/dl (65-105)
[2025-01-23] MEDS: chlordiazePOXIDE (*CRX) 25 MG CAPSULE 50 MG PO ×2 (13:00→22:07)
[2025-01-23 17:58] LABS: Glucose Point of Care 130 mg/dl (65-105)
[2025-01-23] MEDS: QUEtiapine FUMARATE 100 MG TABLET 400 MG PO (22:06)
[2025-01-23] MEDS: traZODone HCL 50 MG TABLET 100 MG PO (22:07)
[2025-01-24] VITALS (9 sets, daily range): BP systolic 100–150; BP diastolic 55–91; PULSE 74–118; RESP 16–20; TEMP 36.5–37.1; O2SAT 90–100
[2025-01-24 00:13] LABS: Glucose Point of Care 108 mg/dl (65-105)
[2025-01-24 04:50] LABS: Hematocrit 40.8 % (42.0-52.0); Hemoglobin 13.4 g/dL (14.0-18.0); Mean Corpuscular HGB Conc 32.8 g/dl (32-36); Mean Corpuscular Hemoglobin 32.7 pg (26-34); Mean Corpuscular Volume 99.5 fl (80-100); Mean Platelet Volume 11.7 fl (7.4-10.4); Platelet Count Result 147 k/mm3 (150-375); Red Cell Distribution Width 12.2 % (11.5-14.5); White Blood Count 6.4 K/mm3 (4.5-10.0)
[2025-01-24 05:07] LABS: Alanine Aminotransferase 34 U/L (6-50); Albumin Level 3.9 g/dL (3.5-5.1); Alkaline Phosphatase 57 U/L (38-126); Anion Gap 8 mmol/L (4-12); Aspartate Amino Transferase 30 U/L (17-59); Bilirubin,Total 0.3 mg/dL (0.2-1.3); Blood Urea Nitrogen 7 mg/dL (9-20); Calcium 9.4 mg/dL (8.4-10.2); Carbon Dioxide 25 mmol/L (22-30); Chloride 103 mmol/L (98-107); Estimated CRCL calculation 125 ml/min; Estimated Glomerular Filt Rate > 60; Glucose 129 mg/dL (65-110); Magnesium 1.8 mg/dL (1.6-2.3); Potassium 3.9 mmol/L (3.4-5.0); Sodium 136 mmol/L (137-145); Total Protein 6.2 g/dL (6.3-8.2)
[2025-01-24] MEDS: chlordiazePOXIDE (*CRX) 25 MG CAPSULE 50 MG PO (05:27)
[2025-01-24] MEDS: ENOXAPARIN 40 MG/0.4 ML SYRINGE SUB-Q (09:54)
[2025-01-24] MEDS: MAGNESIUM OXIDE 400 MG TABLET PO (09:54)
[2025-01-24] MEDS: METOPROLOL TARTRATE 50 MG TAB PO (09:54)
[2025-01-24] MEDS: PANTOPRAZOLE 40 MG TABLET PO (09:54)
[2025-01-24] MEDS: lisinopriL 20 MG TABLET PO (09:55)
[2025-01-24] MEDS: amLODIPine BESYLATE 10 MG TABLET PO (09:55)
[2025-01-24] MEDS: THIAMINE HCL 100 MG TABLET PO (09:55)
[2025-01-24] MEDS: FOLIC ACID 1 MG TABLET PO (09:55)
--- NOTE | 2025-01-24 12:28 | P.DS_ITS ---
DS: Admitting Diagnosis Discharge Date 01/24/2025 Admitting Diagnosis Alcohol withdrawal DS: Discharge Diagnosis Discharge Diagnosis (1) Alcohol withdrawal: Qualifiers: Complication of substance-induced condition: uncomplicated Qualified Code(s): F10.230 - Alcohol dependence with withdrawal, uncomplicated Code(s): F10.239 - Alcohol dependence with withdrawal, unspecified Status: Acute (2) Anxiety and depression: Code(s): F41.9 - Anxiety disorder, unspecified; F32.9 - Major depressive disorder, single episode, unspecified Status: Acute (3) PTSD (post-traumatic stress disorder): Code(s): F43.10 - Post-traumatic stress disorder, unspecified Status: Acute (4) Alcohol intoxication: Code(s): F10.929 - Alcohol use, unspecified with intoxication, unspecified Status: Acute (5) Essential hypertension: Code(s): I10 - Essential (primary) hypertension Status: Acute (6) Hypomagnesemia: Code(s): E83.42 - Hypomagnesemia Status: Acute (7) Nicotine use: Code(s): Z72.0 - Tobacco use Status: Acute (8) Leukocytosis: Qualifiers: Leukocytosis type: leukemoid reaction Qualified Code(s): D72.823 - Leukemoid reaction Code(s): D72.829 - Elevated white blood cell count, unspecified Status: Acute DS: Summary Hospital Course Hospital Course: 54-year-old male with a past medical history of essential hypertension, obesity, depression, PTSD, and anxiety who presented to the ER via EMS because he wanted help detoxing. The patient has had multiple hospitalizations for alcohol intoxication and alcohol withdrawal. The patient has had prior alcohol withdrawal seizures. He most recently went to inpatient rehab in October. He was in rehab for 1 month. He remains sober for 1 month before returning to drinking when he became anxious and stressed out. 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 He usually starts having withdrawal symptoms within 6 hours of stopping drinking. He usually drinks 1-2 5ths of vodka a day. He had drink at least a 24 pack of [place] Light. When he arrived to the ER patient had a CIWA score of 16. He reports headache, nausea, at least moderate anxiety and tremors. He is admitted at this setting. His alcohol level on admission 217. Alcohol withdrawal continue to monitor CIWA and follow CIWA protocol. He also had received phenobarbital in the ER. Continue Librium and Ativan as needed. Continue folic acid and thiamine supplementation. Increase Librium to 50 q.8 and will 2 taper as outpatient basis. CIWA improving. Labs also demonstrated mild hypo magnesemia and mildly low CO2 and an elevated anion gap in the ER. He did receive 1 L fluid bolus in the ER Patient was noted to have excoriation and erythema to his hip some buttocks. He stated that he thought it was due to falling. The however the appearance to the patient's skin seems more consistent with excoriation due to moisture or incontinence. The patient admits that he has been having issues with incontinence at home. Patient does smell strongly of urine. Hypertension on amlodipine lisinopril metoprolol Leukocytosis on arrival to the ED now resolved. DVT prophylaxis SCDs/Lovenox Code status full code Time Spent with Patient Time attestation: Total time spent providing and/or coordinating discharge services: 45 minutes Exam Narrative: Patient is comfortable, NAD HEENT: eyes are clear and none icteric LUNGS:CTA HEART: RR S1S2 ABD: BS+, Soft and nontender Lower extremities: no edema SKIN: nonjaundiced Neuro: grossly intact. Tremulous but calm, cooperative DS: Data Data Completed and Pending Labs on day of discharge: Labs from last 24 hours 01/24/25 01/23/25 01/23/25 04:11 23:41 17:55 WBC 6.4 RBC 4.10 L Hgb 13.4 L Hct 40.8 L MCV 99.5 MCH 32.7 MCHC 32.8 RDW 12.2 Plt Count 147 L MPV 11.7 H Sodium 136 L Potassium 3.9 Chloride 103 Carbon Dioxide 25 Anion Gap 8 BUN 7 L Creatinine 0.68 L Estim Creat Clear Calc 125 Estimated GFR > 60 Glucose 129 H POC Capillary Glucose 108 H 130 H Calcium 9.4 Magnesium 1.8 Total Bilirubin 0.3 AST 30 ALT 34 Alkaline Phosphatase 57 Total Protein 6.2 L Albumin 3.9 Imaging Radiologist's impression: ITS Impressions Hip X-Ray 01/21/25 05:27 Impression: No significant abnormality is seen. Chest X-Ray 01/21/25 05:29 Impression: Normal chest. Discharge Plan Discharge Attending physician on discharge: Benjamin Quick Discharging Clinician: Benjamin Quick Anticipated Discharge Date/Time: 01/24/25 12:30 Patient Disposition: Home Activity: as tolerated Diet: regular Patient Instructions: Antibiotic Form Patient Language: Zambian Stand Alone Forms: General Discharge Information, Work/School Release IP Follow-up/Referrals: [facility] [Primary Care Provider] - 1 Week Discharge Medications: New chlordiazepoxide HCl 25 mg capsule 25 mg PO TID PRN (Reason: alcohol withdrawal) Qty: 24 0RF Rx Instructions: take 2 tab three times daily x 2 days then 1 tab three times daily x 2 days then 1 tab twice daily x 2 days then 1 tab daily x 2 days then stop Continued quetiapine 400 mg Tablet 400 mg PO HS omeprazole 20 mg Capsule,Delayed Release(Dr/Ec) 20 mg PO DAILY thiamine HCl (vitamin B1) [Vitamin B-1] 100 mg Tablet 100 mg PO QAM Qty: 90 0RF lisinopril 20 mg tablet 20 mg PO DAILY magnesium oxide 400 mg (241.3 mg magnesium) Tablet 400 mg PO QAM Qty: 30 0RF metoprolol tartrate 25 mg Tablet 50 mg PO Q12HR Qty: 60 0RF trazodone 100 mg tablet 100 mg PO HS amlodipine 10 mg Tablet 10 mg PO DAILY Qty: 30 0RF folic acid 1 mg Tablet 1 mg PO DAILY Qty: 30 0RF Discontinued carvedilol 25 mg tablet 25 mg PO Q12H Date of admission: 01/22/25 14:50 Primary Care Provider: [facility] Admitting Provider: Tawana Du Attending physician on admission: Tawana Du Condition: Stable
== END 2025-01-24 13:00 | disposition home or self-care (01) | DRG 775 ==
LOC: ANHED 03:16 → ANHIMU 07:55
PROVIDERS: Emergency Medicine; Family Medicine; Admitting Provider Internal Medicine; Emergency Provider Registered Nurse; Visit Provider Internal Medicine
DX: F10.229 Alcohol dependence with intoxication, unspecified (principal); F10.239 Alcohol dependence with withdrawal, unspecified; E83.42 Hypomagnesemia; I10 Essential (primary) hypertension; D72.823 Leukemoid reaction; F43.10 Post-traumatic stress disorder, unspecified; F32.A Depression, unspecified; F41.9 Anxiety disorder, unspecified; Z87.891 Personal history of nicotine dependence
CPT/HCPCS: 36415; 71045; 73502; 80053; 80307; 81001; 82077; 82948; 83735; 84100; 84443; 85025; 85027; 85610; 85730; 93005; 96361; 96365; 96372; 96375; 96376; 99285; A9270; G0378; G0379; J1650; J2060; J2405; J2560; J3411; J3475; J7030

== ENCOUNTER 2025-02-11 06:35 | Emergency (ER) | payer BC, SELFPAY ==
[2025-02-11] VITALS (9 sets, daily range): BP systolic 134–165; BP diastolic 85–107; PULSE 98–115; RESP 13–29; TEMP 36.7; O2SAT 92–97
--- NOTE | 2025-02-11 07:01 | ED_ITS ---
HPI - General Adult General Chief complaint: Alcohol Stated complaint: ETOH Time Seen by Provider: 02/11/25 06:57 History of Present Illness HPI narrative: Patient is a 54-year-old male with history of alcoholism who presents ER in reported alcohol withdrawal. Reports he last drank 12 hours ago but prior to that he had ingested 2 separate fifths of vodka. Patient arrives covered in dirt in urine. He can barely form sentence due to intoxication. Related Data Home Medications ?Medication ?Instructions ?Recorded ?Confirmed ?Last Taken ?Type quetiapine 400 mg tablet 400 mg PO HS 06/12/19 01/21/25 07/21/24 History omeprazole 20 mg capsule,delayed 20 mg PO DAILY 06/07/20 01/21/25 Unknown History release lisinopril 20 mg tablet 20 mg PO DAILY 10/03/20 01/21/25 Unknown History trazodone 100 mg tablet 100 mg PO HS 07/22/24 01/21/25 07/21/24 History Allergies Allergy/AdvReac Type Severity Reaction Status Date / Time Penicillins Allergy Unknown hive Verified 07/22/24 14:24 Review of Systems 2 Review of Systems: ROS unobtainable: Yes other (intoxication) [facility] Past Medical History Medical History (Updated 02/11/25 @ 13:01 by Erick Matos MD) Obstructive sleep apnea Intolerant to CPAP Nicotine use Posttraumatic stress disorder Essential hypertension Depression Anxiety Alcohol withdrawal seizure Seasonal allergies Surgical History Surgical History History of surgical removal of ganglion cyst Right wrist. History of tonsillectomy and adenoidectomy History of umbilical hernia repair History of appendectomy History of tonsillectomy Family History Family History Father Heart disease Mother Heart disease Social History Social History (Updated 01/21/25 @ 07:52 by Tawana Du DO) Social History: Patient reports that he lives in his own apartment. He is on disability due to his PTSD. He still drinks alcohol heavily and is still a smoker. Surrogate medical decision maker: Bonnie Sandhu, mother. Code status: Full code. Smoking packs per day: 1 Smoking cigarettes per day: 20.0 Years smoked: 25 Smoking pack-years: 25.00 Smoking status: Former smoker Tobacco type: cigarettes Smokeless tobacco user: chewing tobacco Second hand tobacco smoke exposure: Yes Smoking end date: 08/13/16 Alcohol intake: current Drinks per week: 140 Alcohol use details: / of vodka a day Substance use: current Substance use type: marijuana Do You Feel Safe in your Home?: Yes Lack of Transportation: No Lack of Food: Never True Current Housing: I Have Housing Concerned About Future Housing: No Difficulty Paying Gas/Electric Bills: No Difficulty Paying for Meds: No Currently Unemployed: No Education: Trade/Vocational Certificate Difficulty w/ Childcare or Family Care: No Additional living arrangements comments: Lives in [place]. 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 He is now on 90% disability through the [employer]. Spiritual care concerns: No Exam 2 Narrative: GENERAL: Intoxicated-appearing, covered in dirt, overweight, and in no acute distress. HEAD: Normocephalic, atraumatic. EYES: PERRL and EOMI. ENT: Mucous membranes moist. CHEST: Clear to auscultation. No respiratory distress. HEART: Regular rate and rhythm. Normal peripheral pulses. ABDOMEN: Soft, nontender, nondistended. EXTREMITIES: Normal range of motion. No edema. SKIN: Warm, dry, no rash. NEURO: Alert and oriented x3. PSYCH: Normal mood and affect. Course Course Emergency Course: Patient is more sober and is alert orient x4. He would like his mom to come pick him up since I do not feel he is in alcohol withdrawal and in need of hospitalization. Vital Signs Vital signs: Vital Signs Temperature 98.0 F 02/11/25 06:33 Pulse Rate 113 H 02/11/25 06:33 Respiratory Rate 13 02/11/25 06:33 Blood Pressure 164/96 H 02/11/25 06:33 Pulse Oximetry 92 02/11/25 06:33 Oxygen Delivery Room Air 02/11/25 06:33 Temperature 98.0 F 02/11/25 06:33 Pulse Rate 111 H 02/11/25 11:21 Respiratory Rate 14 02/11/25 11:21 Blood Pressure 165/107 H 02/11/25 11:21 Pulse Oximetry 96 02/11/25 11:21 Oxygen Delivery Room Air 02/11/25 06:33 Medical Decision Making Vital Signs Vital Signs: Vital Signs Temperature 98.0 F 02/11/25 06:33 Pulse Rate 113 H 02/11/25 06:33 Respiratory Rate 13 02/11/25 06:33 Blood Pressure 164/96 H 02/11/25 06:33 Pulse Oximetry 92 02/11/25 06:33 Oxygen Delivery Room Air 02/11/25 06:33 Temperature 98.0 F 02/11/25 06:33 Pulse Rate 111 H 02/11/25 11:21 Respiratory Rate 14 02/11/25 11:21 Blood Pressure 165/107 H 02/11/25 11:21 Pulse Oximetry 96 02/11/25 11:21 Oxygen Delivery Room Air 02/11/25 06:33 Lab Data 02/11/25 07:21 02/11/25 07:21 Labs: Lab Results 02/11/25 02/11/25 Range/Units 07:21 08:58 WBC 7.4 (4.5-10.0) K/mm3 RBC 5.14 (4.6-6.20) M/mm3 Hgb 17.0 D (14.0-18.0) g/dL Hct 50.6 (42.0-52.0) % MCV 98.4 (80-100) fl MCH 33.1 (26-34) pg MCHC 33.6 (32-36) g/dl RDW 14.0 (11.5-14.5) % Plt Count 315 D (150-375) k/mm3 MPV 9.3 (7.4-10.4) fl Immature Gran % (Auto) 0.3 (0-0.5) % Neut % (Auto) 52.9 (45.5-73.1) % Lymph % (Auto) 33.7 (18.3-44.2) % Millard % (Auto) 10.7 H (2.6-8.5) % Eos % (Auto) 1.2 (0-4.4) % Baso % (Auto) 1.2 (0.2-1.2) % Lymph # (Auto) 2.49 (0.9-3.2) K/mm3 Millard # (Auto) 0.8 H (0.1-0.6) K/mm3 Eos # (Auto) 0.1 (0-0.3) K/mm3 Baso # (Auto) 0.1 (0.0-0.1) K/mm3 Abs Immat Gran (auto) 0.02 (0.00-0.031) K/mm3 Absolute Neuts (auto) 3.9 (1.3-6.7) K/mm3 Absolute Nucleated RBC 0.000 (0.0-0.012) K/mm3 Nucleated RBC % 0.0 (0.0-0.2) % Sodium 149 H (137-145) mmol/L Potassium 3.3 L (3.4-5.0) mmol/L Chloride 106 (98-107) mmol/L Carbon Dioxide 30 (22-30) mmol/L Anion Gap 13 H (4-12) mmol/L BUN 7 L (9-20) mg/dL Creatinine 0.77 (0.7-1.3) mg/dL Estim Creat Clear Calc 112 ml/min Estimated GFR > 60 (59 - ) Glucose 104 (65-110) mg/dL Calcium 8.7 (8.4-10.2) mg/dL Total Bilirubin 0.4 (0.2-1.3) mg/dL AST 50 (17-59) U/L ALT 46 (6-50) U/L Alkaline Phosphatase 93 (38-126) U/L Total Protein 7.8 (6.3-8.2) g/dL Albumin 4.6 (3.5-5.1) g/dL TSH (Reflex) 1.690 (0.465-4.68) uIU/mL Free T4 1.03 (0.78-2.19) ng/dL Urine Color Yellow (Yellow) Urine Appearance Clear (Clear) Urine pH 6.0 (5.0-9.0) Ur Specific [place] 1.015 (1.001-1.035) Urine Protein 1+ H (Negative) mg/dL Urine Glucose (UA) Negative (Negative) mg/dL Urine Ketones Trace H (Negative) mg/dL Ur Blood (Man) Negative (Negative) Urine Nitrate Negative (Negative) Urine Bilirubin Negative (Negative) Urine Urobilinogen 1.0 (<2.0) mg/dL Leukocyte Esterase Rfl Negative (Negative) BLANE/UL Urine RBC 0-2 (0-2) /hpf Urine WBC 0-5 (0-3) /hpf Ur Squamous Epith Cells None seen (Few) /hpf Urine Bacteria None seen /hpf Urine Casts 3-5 Salicylates < 1.0 L (2-20) mg/dL Urine Opiates Screen Negative (Negative) Urine Methadone Screen Negative (Negative) Acetaminophen < 10 L (10-30) ug/mL Ur Barbiturates Screen Negative (Negative) Ur Phencyclidine Scrn Negative (Negative) Ur Amphetamine Screen Negative (Negative) U Benzodiazepines Scrn Positive A (Negative) Urine Cocaine Screen Negative (Negative) U Cannabinoids Screen Positive A (Negative) Ethyl Alcohol 351 H* (<10) mg/dL Influenza A (RT-PCR) Negative (Negative) Influenza B (RT-PCR) Negative (Negative) RSV (RT-PCR) Negative (Negative) SARS-CoV-2 RNA (RT-PCR) Negative (Negative) Discharge Plan Discharge Clinical Impression: Alcohol intoxication Patient Disposition: Home Condition: Stable Instructions: Alcohol Intoxication (ED) Additional Instructions: Return ER if you have fever 100.4? F, you cannot keep down food or water, you develop chest pain with shortness of breath, or you have additional concerns. Patient Language: Iraqi Prescriptions: No Action quetiapine 400 mg Tablet 400 mg PO HS omeprazole 20 mg Capsule,Delayed Release(Dr/Ec) 20 mg PO DAILY thiamine HCl (vitamin B1) [Vitamin B-1] 100 mg Tablet 100 mg PO QAM Qty: 90 0RF lisinopril 20 mg tablet 20 mg PO DAILY magnesium oxide 400 mg (241.3 mg magnesium) Tablet 400 mg PO QAM Qty: 30 0RF metoprolol tartrate 25 mg Tablet 50 mg PO Q12HR Qty: 60 0RF trazodone 100 mg tablet 100 mg PO HS amlodipine 10 mg Tablet 10 mg PO DAILY Qty: 30 0RF folic acid 1 mg Tablet 1 mg PO DAILY Qty: 30 0RF chlordiazepoxide HCl 25 mg capsule 25 mg PO TID PRN (Reason: alcohol withdrawal) Qty: 24 0RF Rx Instructions: take 2 tab three times daily x 2 days then 1 tab three times daily x 2 days then 1 tab twice daily x 2 days then 1 tab daily x 2 days then stop Follow-up/Referrals: [facility] [Primary Care Provider] - 1 Week
--- OUTSIDE RECORDS SUMMARY | 2025-02-11 07:18 | XMS_ITS | Encounter Summary ---
Author Organization [facility] Healthcare Address [address] [place] [address] Care Team Providers Care Ios Software Engineer Name Role Phone Weston Mantilla DO Primary Care Provide r Kimberli Collins DPM Unavailable [phone] Encounter Details Date Type Department Care Team (Late st Contact Info) Description 12/26/2024 [facility] Post Discharge Follow up phone call [address] [id number] Alannah Mack Social History Tobacco Use Types Packs/Day Years Used Date Smoking Tobacco: Former Cigarettes Smokeless Tobacco: Current Chew Alcohol Use Standard Drinks/Week Comments Yes 0 (1 standard drink = 0.6 oz pur e alcohol) [facility] Utilities Answer Date Recorded In the past 12 months has [employer] electric, gas, oil, or water company threatened [...] often do you attend chur ch or caodaism services? Never 12/18/2024 Do you belong to any clubs o r organizations such as orthodoxy groups, unions, fraternal or athletic groups, or [...] any time in the past 12 m [facility], were you homeless or living in a long-term (including now)? No 12/18/2024 Personal Safety Answer Date Recorded Have you ever been in or are you currently in a harmful physical or emotional relationship or is someone making you feel afraid or unsafe? 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
--- OUTSIDE RECORDS SUMMARY | 2025-02-11 07:19 | XMS_ITS | Clinical Summary ---
Author Organization [facility] [address] Address [address] [place] [address] Care Team Providers Care Birthing Nurse Name Role Phone Jose RafaelJosecinthya Harjeet Primary Care Provide r Kimberli Collins DPM Unavailable [phone] Allergies Active Allergy Reactions Criticality Noted Date Comments Penicillin Hives Medium 09/06/2023 Medications buPROPion XL (WELLBUTRIN XL) 300 mg 24 hr tablet Take 1 tablet (300 mg total) by mouth daily Active QUEtiapine (SEROquel) 400 mg tablet Take 1 tablet (400 mg total) by mouth nightly Active traZODone (DESYREL) 100 mg tablet Take 1 tablet (100 mg total) by mouth nightly as needed for sleep or depression Active multivit-min/fo lic/vit K/lycop (MEN'S MULTIVITAMIN ORAL) Take 1 tablet [...] a day with meals 60 tablet 11 10/14/19 026 Active magnesium oxide (MAG-OX) 250 mg (150.8 mg elemental) tablet Take 1 tablet (250 mg total) by mouth daily Active busPIRone (BUSPAR) 10 mg tabletIndicatio ns:Generalized Anxiety Disorder Take 0.5 tablets (5 mg total) by mouth 3 (three) times a day Active ALPRAZolam (XANAX) 0.25 mg tablet Take 1 tablet (0.25 mg total) by mouth nightly as needed for anxiety Active diclofenac sodium (VOLTAREN) 1 % gel Apply 4 g topically 4 (four) times a day as needed Active NIFEdipine (NIFEdipine XL) 60 mg 24 hr tablet Take 1 tablet (60 mg total) by mouth daily 30 tablet 02/02/20 25 025 Active naltrexone (DEPADE) 50 mg tablet Take 1 tablet (50 mg total) by mouth daily 30 tablet 11 02/02/20 25 026 Active hydrOXYzine (ATARAX) 10 mg tablet Take 1 tablet (10 mg total) by mouth 3 (three) times a day as needed for itching 30 tablet 02/02/20 25 025 Active chlordiazePOXID E (LIBRIUM) 25 mg capsule Take 1 capsule (25 mg total) by mouth 3 (three) times a day as needed for anxiety for up to 15 days 30 capsule 02/05/20 25 025 Active potassium gluconate 500 mg (83 mg) tablet Take 1 tablet by mouth daily 025 Discontinued(S top Taking at Discharge) NIFEdipine (NIFEdipine XL) 60 mg 24 hr tablet Take 1 tablet (60 mg total) by mouth daily 025 Discontinued chlordiazePOXID E (LIBRIUM) 10 mg capsule Take 1 capsule (10 mg total) by mouth 2 (two) times a day as needed for withdrawal symptoms for up to 5 days 10 capsule 12/21/19 25 025 Discontinued chlordiazePOXID E (LIBRIUM) 25 mg capsule Take 1 capsule (25 mg total) by mouth 4 (four) times a day as needed for anxiety or withdrawal symptoms 01/25/20 25 025 Discontinued(S top Taking at Discharge) prazosin (MINIPRESS) 1 mg capsule Take 3 capsules (3 mg total) by mouth nightly as needed (nightmares) 025 Discontinued Active Problems Problem Noted Date Diagnosed Date Alcohol use disorder 01/30/2025 Alcohol withdrawal seizure without complication 10/30/2024 Fall, initial encounter 10/22/2024 Alcohol withdrawal syndrome with complication Acquired hammer toe of right foot 08/28/2023 Encounters Date Type Department Care Team Description 02/04/2025 7:05 AM CDT - 02/04/2025 2:15 PM CDT Emergency [facility] Emergency Department [address] [place] [address] Jr Garza MD Alcohol abuse (Primary Dx) Discharge Disposition: Discharge to home or self care 02/04/2025 Documentation [facility] Warm Hand Off Program [address] [place], [place] [phone] Tammy Anderson 02/03/2025 [facility] Post Discharge Follow up phone call [address] [address] Soledad Chun, QIANA 02/02/2025 [facility] Post Discharge Follow up phone call [address] [address] Soledad Chun RN 01/30/2025 6:32 AM CDT - 02/01/2025 1:55 PM CDT Hospital Encounter [address] [address] Bola Hernandez MD Ogunremi, MD Bao Barraza Jeffrey Ryan, Alcohol use disorder (Primary Dx); Alcohol withdrawal syndrome with complication (HCC) Discharge Disposition: Discharge to home or self care 12/26/2024 [facility] Post Discharge Follow up phone call [address] [address] Alannah Mack Lacenrique 12/17/2024 8:47 AM CDT - 12/20/2024 1:09 PM CDT Hospital Encounter [address] [id number] Jered Titus DO Novoselova, Victoria, MD Onaghise, Jude, MD Ogunremi, Chito Omolulu, MD Gore, Leonid Tej, DO Alcohol withdrawal syndrome with complication (HCC) [...] drink = 0.6 oz pur e alcohol) [employer] [facility] Utilities Answer Date Recorded In the past 12 months has e electric, gas, oil, or water company threatened [...] often do you attend chur ch or yazdanism services? Never 12/18/2024 Do you belong to any clubs o r organizations such as jehovah's witness groups, unions, fraternal or athletic groups, or [...] any time in the past 12 m [facility], were you homeless or living in a skilled nursing (including now)? No 12/18/2024 Personal Safety Answer Date Recorded Have you ever been in or are you currently in a harmful physical or emotional relationship or is someone making you feel afraid or unsafe? 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 Gender Identity Not on file Sexual Orientation Not on file Obstetrics History Last Filed Vital Signs Vital Sign Reading Time Taken Comments Blood Pressure 143/98 02/04/2025 11:30 AM CDT Pulse 111 02/04/2025 11:30 AM CDT Temperature 36.2 C (97.1 F) 02/04/2025 11:30 AM CDT Respiratory Rate 13 02/04/2025 11:30 AM CDT Oxygen Saturation 96% 02/04/2025 11:30 AM CDT Inhaled Oxygen Concentration - - Weight 99.8 kg (220 lb) 02/04/2025 7:09 AM CDT Height 177.8 cm (5' 10) 02/04/2025 7:09 AM CDT Body Mass Index 31.57 02/04/2025 7:09 AM CDT Plan of Treatment Health Maintenance Due Date Last Done Comments Colon Cancer Screening-Colonoscopy 1970 Depression Screening 1970 Hepatitis C Screening 1970 Prostate Cancer Screening-PSA 1970 DTaP/Tdap/Td Vaccine (1 - Tdap) 1981 Regular Well Visit/Exam 18-64 1988 Zoster Vaccine (2 of 2) 02/01/2023 12/07/2022 Covid-19 Vaccine (2 - 2023-2 5 season) 2024 09/04/2021 Influenza Vaccine (#1) 2025 09/11/2013 Hepatitis B Screening Completed 09/11/2013 , 07/17/2012 Pneumococcal vaccine <65 Aged Out 12/07/2022 No longer eligible based on patient's age to complete this topic Medical Devices Implanted Type Area Able Bodied Seaman Device Identifier Shelf Expiration Date Model / Serial / Lot [employer] Enio 1.1mm 152mm [place]car Point 2 End Style 1 Wire Fixation [id number] - [id number] - [id number] Implanted:Qty: 2 on 09/14/2023 by Kimberli Collins DPM at [facility] Explanted:03/13 (Quantity not on file) Right: [employer] 03/[birth year]/20[birth year] [id number] / [id number] / [id number] Description:K-WIRE TO 3RD AN D 4TH TOES, RIGHT FOOT. COVERED WITH MASSIEL BALLS Procedures Procedure Name Priority Date/Time Associated Diagnosis Comments ETHANOL STAT 02/04/2025 12:32 PM CDT EGFR STAT 02/04/2025 8:05 AM CDT DIFFERENTIAL AUTO STAT 02/04/2025 8:0 5 AM CDT MAGNESIUM Routine 02/04/2025 8:05 AM CDT ETHANOL STAT 02/04/2025 8:05 AM CDT LIPASE STAT 02/04/2025 8:05 AM CDT COMPREHENSIVE METABOLIC PANEL STAT 02/04/2025 8:05 AM CDT CBC WITH AUTO DIFFERENTIAL STAT 02/04/2025 8:05 AM CDT EGFR Routine 01/31/2025 5:02 AM CDT DIFFERENTIAL AUTO Routine 01/31/2025 5:0 2 AM CDT BASIC METABOLIC PANEL Routine 01/31/2025 5:02 AM CDT CBC WITH AUTO DIFFERENTIAL Routine 01/31/2025 5:02 AM CDT OK CRITICAL CARE ILL/INJURED PATIENT INIT 30-74 MIN Routine 01/30/2025 4:32 PM CDT ECG 12-LEAD Routine 01/30/2025 6:56 AM CDT LIPASE Add-On 01/30/2025 6:54 AM CDT EGFR STAT 01/30/2025 6:54 AM CDT DIFFERENTIAL AUTO STAT 01/30/2025 6:5 4 AM CDT ETHANOL Routine 01/30/2025 6:54 AM CDT COMPREHENSIVE METABOLIC PANEL STAT 01/30/2025 6:54 AM CDT CBC WITH AUTO DIFFERENTIAL STAT 01/30/2025 6:54 AM CDT CALCIUM,IONIZED, WHOLE BLOOD Routine 12/20/2024 8:34 AM [...] CONTRAST ED 12/17/2024 1 1:36 AM CDT OK CRITICAL CARE ILL/INJURED PATIENT INIT 30-74 MIN [...] ECG 12-LEAD STAT 12/17/2024 8:50 AM CDT from Last 3 Months Results * (ABNORMAL) Ethanol (02/04/2025 12:32 PM CDT) Ethanol 226(H) <=10 mg/dL Comment: Interpretive Data Legal limit of intoxication > or = 80 mg/dL Levels > or = 400 mg/dL are potentially TOXIC. Current interpretive data was last revised on 2018. Blood 02/04/2025 12:3 2 PM CDT 02/04/2025 12:38 PM CDT Jr Garza MD LAB BLOOD ORDERABLES Final R esult Performing Organization Address City/[facility]/ZIP Co de Phone Number ETHAN ONOFRE [facility] 1 [facility] Department [place] [address] * eGFR (02/04/2025 8:05 AM CDT) eGFR >90 >=60 mL/min/1. 73 [...] interpretive data was last reviewed 2021. Blood 02/04/2025 8:05 AM CDT 02/04/2025 8:08 AM CDT Jr Garza MD LAB BLOOD ORDERABLES Final R esult [facility] ([place]) 1 [facility] [place] [address] * (ABNORMAL) Differential, auto (02/04/2025 8:05 AM CDT) Neutrophil abs 13.17(H) 1.50 - 6.50 K/cumm Imm gran abs 0.07 0.00 - 0.10 K/cumm [facility] ([place]) Lymphocyte abs 2.83 0.80 - 3.30 K/cumm [facility] ([place]) Monocyte abs 0.77 0.20 - 0.80 K/cumm [facility] ([place]) Eosinophil abs 0.15 0.00 - 0.50 K/cumm [facility] ([place]) Basophil abs 0.12(H) 0.00 - 0.10 K/cumm [facility] ([place]) Neutrophil pct 77.0 % [facility] ([place]) Comment: Interpretive Data Percent cell count reference ranges are not reported, since discordance with absolute values may lead to misinterpretation of CBC data. Current Interpretive Data was last revised on 2017. Imm gran pct 0.4 % [facility] ([place]) Comment: Interpretive Data Percent cell count reference ranges are not reported, since discordance with absolute values may lead to misinterpretation of CBC data. Current Interpretive Data was last revised on 2017. Lymphocyte pct 16.5 % [facility] ([place]) Comment: Interpretive Data Percent cell count reference ranges are not reported, since discordance with absolute values may lead to misinterpretation of CBC data. Current Interpretive Data was last revised on 2017. Monocyte pct 4.5 % [facility] ([place]) Comment: Interpretive Data Percent cell count reference ranges are not reported, since discordance with absolute values may lead to misinterpretation of CBC data. Current Interpretive Data was last revised on 2017. Eosinophil pct 0.9 % [facility] ([place]) Comment: Interpretive Data Percent cell count reference ranges are not reported, since discordance with absolute values may lead to misinterpretation of CBC data. Current Interpretive Data was last revised on 2017. Basophil pct 0.7 % [facility] ([place]) Comment: Interpretive Data Percent cell count reference ranges are not reported, since discordance with absolute values may lead to misinterpretation of CBC data. Current Interpretive Data was last revised on 2017. Blood 02/04/2025 8:05 AM CDT 02/04/2025 8:08 AM CDT Jr Garza MD LAB BLOOD ORDERABLES Final R esult [facility] ([place]) 1 [facility] Department [place] [address] * (ABNORMAL) CBC with auto differential (02/04/2025 8:05 AM CDT) WBC 17.11(H) 3.80 - 9.90 K/cumm Hgb 16.1 13.0 - 17.5 g/dL [facility] ([place]) Hct 47.7 38.9 - 50.3 % [facility] ([place]) Plt 350 150 - 400 K/cumm [facility] ([place]) MPV 9.7 9.1 - 12.3 fL [facility] ([place]) RBC 4.95 4.30 - 5.80 M/cumm [facility] ([place]) MCV 96.4 81.3 - 96.4 fL [facility] ([place]) MCH 32.5 27.1 - 33.3 pg [facility] ([place]) MCHC 33.8 32.3 - 35.7 g/dL [facility] ([place]) RDW CV 13.1 11.1 - 14.9 % [facility] ([place]) RDW SD 46.5 35.7 - 48.1 fL [facility] ([place]) NRBC abs 0.00 0.00 - 0.01 K/cumm [facility] ([place]) Blood 02/04/2025 8:05 AM CDT 02/04/2025 8:08 AM CDT Jr Garza MD LAB BLOOD ORDERABLES Final R esult [facility] ([place] 1 [facility] [place] [address] * Magnesium (02/04/2025 8:05 AM CDT) Magnesium 1.7 1.4 - 2.5 mg/dL Blood 02/04/2025 8:05 AM CDT 02/04/2025 8:08 AM CDT Jr Garza MD LAB BLOOD ORDERABLES Final R esult [facility]AN ONO[facility] ([place]) 1 [facility] [place] [address] * Lipase (02/04/2025 8:05 AM CDT) Lipase 20 10 - 99 Units/L Blood 02/04/2025 8:05 AM CDT 02/04/2025 8:08 AM CDT Jr Garza MD LAB BLOOD ORDERABLES Final R esult Performing Organization Address [facility] Co de Phone Number ETHAN ONOFRE ([place]) 1 [facility] [place] [address] * (ABNORMAL) Ethanol (02/04/2025 8:05 AM CDT) Ethanol 335(C) <=10 mg/dL Comment: Critical Result called by [id number] at 2025-02-04 08:35:23. Result Read Back by Branden Acosta/er Interpretive Data Legal limit of intoxication > or = 80 mg/dL Levels > or = 400 mg/dL are potentially TOXIC. Current interpretive data was last revised on 2018. Blood 02/04/2025 8:05 AM CDT 02/04/2025 8:08 AM CDT Jr Garza MD LAB BLOOD ORDERABLES Final R esult [facility] ([place] 1 [facility] Department [place] [address] * (ABNORMAL) Comprehensive metabolic panel (02/04/2025 8:05 AM CDT) Sodium 143 135 - 145 mmol/L Potassium, pl 3.7 3.3 - 4.9 mmol/L [facility] ([place]) Chloride 103 97 - 110 mmol/L [facility] ([place]) CO2 21(L) 22 - 32 mmol/L [facility] ([place]) Anion gap 20(H) 2 - 15 mmol/L [facility] ([place]) BUN 5(L) 6 - 25 mg/dL [facility] ([place]) Creatinine 0.77(L) 0.80 - 1.30 mg/dL [facility] ([place]) Glucose 95 70 - 199 mg/dL [facility] ([place]) Comment: Interpretive Data Fasting glucose >/= 126 [...] interpretive data was last revised 2022. Calcium 8.7 8.5 - 10.3 mg/dL [facility] ([place]) Bilirubin, total 0.2 0.1 - 1.2 mg/dL [facility] ([place]) Protein, pl 7.4 6.5 - 8.5 g/dL [facility] ([place]) Albumin 4.2 3.5 - 5.0 g/dL [facility] ([place]) Alk phos 115 40 - 130 Units/L [facility] ([place]) ALT 82(H) 7 - 55 Units/L [facility] ([place]) AST 56(H) 10 - 50 Units/L [facility] ([place]) Blood 02/04/2025 8:05 AM CDT 02/04/2025 8:08 AM CDT us Jr Garza MD LAB BLOOD ORDERABLES Final R esult ETHAN ONOFRE ([place]) 1 [facility] [place] [address] * eGFR (01/31/2025 5:02 AM CDT) eGFR >90 >=60 mL/min/1. 73 [...] interpretive data was last reviewed 2021. Blood 01/31/2025 5:02 AM CDT 01/31/2025 5:11 AM CDT Susanne Lamar NP LAB BLOOD ORDERABLES Final R esult [facility] [address] Department [place] [address] * Differential, auto (01/31/2025 5:02 AM CDT) Neutrophil abs 2.16 1.50 - 6.50 K/cumm Imm gran abs 0.01 0.00 - 0.10 K/cumm [facility] Lymphocyte abs 1.60 0.80 - 3.30 K/cumm [facility] Monocyte abs 0.47 0.20 - 0.80 K/cumm [facility] Eosinophil abs 0.22 0.00 - 0.50 K/cumm [facility] Basophil abs 0.04 0.00 - 0.10 K/cumm [facility] Neutrophil pct 48.0 % [facility] Comment: Interpretive Data Percent cell count reference ranges are not reported, since discordance with absolute values may lead to misinterpretation of CBC data. Current Interpretive Data was last revised on 2017. Imm gran pct 0.2 % [facility] Comment: Interpretive Data Percent cell count reference ranges are not reported, since discordance with absolute values may lead to misinterpretation of CBC data. Current Interpretive Data was last revised on 2017. Lymphocyte pct 35.6 % [facility] Comment: Interpretive Data Percent cell count reference ranges are not reported, since discordance with absolute values may lead to misinterpretation of CBC data. Current Interpretive Data was last revised on 2017. Monocyte pct 10.4 % [facility] Comment: Interpretive Data Percent cell count reference ranges are not reported, since discordance with absolute values may lead to misinterpretation of CBC data. Current Interpretive Data was last revised on 2017. Eosinophil pct 4.9 % [facility] Comment: Interpretive Data Percent cell count reference ranges are not reported, since discordance with absolute values may lead to misinterpretation of CBC data. Current Interpretive Data was last revised on 2017. Basophil pct 0.9 % [facility] Comment: Interpretive Data Percent cell count reference ranges are not reported, since discordance with absolute values may lead to misinterpretation of CBC data. Current Interpretive Data was last revised on 2017. Blood 01/31/2025 5:02 AM CDT 01/31/2025 5:11 AM CDT us Susanne Lamar NP LAB BLOOD ORDERABLES Final R esult [facility] [address] Department [place] [address] * (ABNORMAL) CBC with auto differential (01/31/2025 5:02 AM CDT) WBC 4.50 3.80 - 9.90 K/cumm Hgb 13.0 13.0 - 17.5 g/dL [facility] Hct 40.2 38.9 - 50.3 % [facility] Plt 198 150 - 400 K/cumm [facility] MPV 10.1 9.1 - 12.3 fL [facility] RBC 3.99(L) 4.30 - 5.80 M/cumm [facility] MCV 100.8(H) 81.3 - 96.[address] [address] [facility] MCH 32.6 27.1 - 33.3 pg [facility] MCHC 32.3 32.3 - 35.7 g/dL [facility] RDW CV 12.5 11.1 - 14.9 % [facility] RDW SD 46.6 35.7 - 48.1 fL [facility] NRBC abs 0.00 0.00 - 0.01 K/cumm [facility] Blood 01/31/2025 5:02 AM CDT 01/31/2025 5:11 AM CDT us Susanne Lamar NP LAB BLOOD ORDERABLES Final R esult [facility] [address] Department [place] [address] * (ABNORMAL) Basic metabolic panel (01/31/2025 5:02 AM CDT) Sodium 142 135 - 145 mmol/L Potassium, pl 3.5 3.3 - 4.9 mmol/L [facility] Chloride 105 97 - 110 mmol/L [facility] CO2 24 22 - 32 mmol/L [facility] Anion gap 13 2 - 15 mmol/L [facility] BUN 10 6 - 25 mg/dL [facility] Creatinine 0.66(L) 0.80 - 1.30 mg/dL [facility] Glucose 90 70 - 199 mg/dL [facility] Comment: Interpretive Data Fasting glucose [...] interpretive data was last revised 2022. Calcium 9.0 8.5 - 10.3 mg/dL [facility] Blood 01/31/2025 5:02 AM CDT 01/31/2025 5:11 AM CDT us Susanne Lamar NP LAB BLOOD ORDERABLES Final R esult [facility] [address] Department [place] [address] * [place] CRITICAL CARE ILL/INJURED PATIENT INIT 30-74 MIN (01/30/2025 4:32 PM CDT) Narrative Bola Hernandez MD - 01/30/2025 4:32 PM CDT Bola Hernandez MD 01/30/2025 4:35 PM Critical Care Performed by: Bola Hernandez MD Authorized by: Bola Hernandez MD Critical care provider statement: As reflected in the history, physical exam, orders, notes, and/or MDM, I was personally present while the patient was critically ill and provided critical care services for 37 minutes, excluding time involved in separately billable procedures. Critical care was necessary to treat or prevent imminent or life-threatening deterioration of the following condition(s): tachy/ramila arrhythmic event dehydration severe toxicological condition Critical care was time spent by me providing the following: continuous telemetry, continuous pulse oximetry, interpretation of bedside monitors, imaging, and arterial/venous lab draws, serial bedside patient exams, resuscitation with fluids and serial laboratory checks active titration of continuous sedation and sedatives and psychotropic medications I provided emergent [...] patient to a continuous cardiac monitored bed. Bola Hernandez MD IN CLINIC/BEDSIDE ORDERABLES Fin al Result * ECG 12 lead (01/30/2025 6:56 AM CDT) 01/30/2025 6:56 AM CDT Narrative [facility] - 01/30/2025 10:25 AM CDT Vent Rate: 110 bpm RR Interval: 541 msec OK Interval: 155 msec QRS Duration: 92 msec QT Interval: 334 msec QTC Interval: 399 msec P-R-T Fosters: 60 - 18 - 53 degrees IMPRESSION: SINUS TACHYCARDIA Electronically Signed By: Mitch Schaefer MD, [facility] Bello Reeves MD ECG ORDERABLES Final Resul t [facility] * eGFR (01/30/2025 6:54 AM CDT) eGFR >90 >=60 mL/min/1. 73 [...] interpretive data was last reviewed 2021. Blood 01/30/2025 6:54 AM CDT 01/30/2025 7:01 AM CDT Bello Reeves MD LAB BLOOD ORDERABLES Final Result [facility] [address] Department [place] [address] * (ABNORMAL) Differential, auto (01/30/2025 6:54 AM CDT) Neutrophil abs 4.01 1.50 - 6.50 K/cumm Imm gran abs 0.01 0.00 - 0.10 K/cumm [facility] Lymphocyte abs 3.92(H) 0.80 - 3.30 K/cumm [facility] Monocyte abs 1.20(H) 0.20 - 0.80 K/cumm [facility] Eosinophil abs 0.09 0.00 - 0.50 K/cumm [facility] Basophil abs 0.05 0.00 - 0.10 K/cumm [facility] Neutrophil pct 43.3 % [facility] Comment: Interpretive Data Percent cell count reference ranges are not reported, since discordance with absolute values may lead to misinterpretation of CBC data. Current Interpretive Data was last revised on 2017. Imm gran pct 0.1 % [facility] Comment: Interpretive Data Percent cell count reference ranges are not reported, since discordance with absolute values may lead to misinterpretation of CBC data. Current Interpretive Data was last revised on 2017. Lymphocyte pct 42.2 % [facility] Comment: Interpretive Data Percent cell count reference ranges are not reported, since discordance with absolute values may lead to misinterpretation of CBC data. Current Interpretive Data was last revised on 2017. Monocyte pct 12.9 % [facility] Comment: Interpretive Data Percent cell count reference ranges are not reported, since discordance with absolute values may lead to misinterpretation of CBC data. Current Interpretive Data was last revised on 2017. Eosinophil pct 1.0 % [facility] Comment: Interpretive Data Percent cell count reference ranges are not reported, since discordance with absolute values may lead to misinterpretation of CBC data. Current Interpretive Data was last revised on 2017. Basophil pct 0.5 % [facility] Comment: Interpretive Data Percent cell count reference ranges are not reported, since discordance with absolute values may lead to misinterpretation of CBC data. Current Interpretive Data was last revised on 2017. Blood 01/30/2025 6:54 AM CDT 01/30/2025 7:00 AM CDT Bello Reeves MD LAB BLOOD ORDERABLES Final Result [facility] [address] [place] [address] * (ABNORMAL) CBC with auto differential (01/30/2025 6:54 AM CDT) WBC 9.28 3.80 - 9.90 K/cumm Hgb 14.2 13.0 - 17.5 g/dL [facility] Hct 43.0 38.9 - 50.3 % [facility] Plt 302 150 - 400 K/cumm [facility] MPV 9.5 9.1 - 12.3 fL [facility] RBC 4.33 4.30 - 5.80 M/cumm [facility] MCV 99.3(H) 81.3 - 96.4 fL [facility] MCH 32.8 27.1 - 33.3 pg [facility] MCHC 33.0 32.3 - 35.7 g/dL [facility] RDW CV 12.8 11.1 - 14.9 % [facility] RDW SD 47.4 35.7 - 48.1 fL [facility] NRBC abs 0.00 0.00 - 0.01 K/cumm [facility] Blood Venous blood specimen / Unknown 01/30/2025 6:54 AM CDT 01/30/2025 7:00 AM CDT Bello Reeves MD LAB BLOOD ORDERABLES Final Result [facility] [address] [place] [address] * Lipase (01/30/2025 6:54 AM CDT) Lipase 18 10 - 99 Units/L Blood 01/30/2025 6:54 AM CDT 01/30/2025 8:51 AM CDT Bola Hernandez MD LAB BLOOD ORDERABLES Final Resul t Performing Organization Address City/[facility] Co de Phone Number [facility] [address] [facility] [place] [address] * (ABNORMAL) Ethanol (01/30/2025 6:54 AM CDT) Ethanol 297(H) <=10 mg/dL Comment: Interpretive Data Legal limit of intoxication > or = 80 mg/dL Levels > or = 400 mg/dL are potentially TOXIC. Current interpretive data was last revised on 2018. Blood 01/30/2025 6:54 AM CDT 01/30/2025 7:00 AM CDT Bello Reeves MD LAB BLOOD ORDERABLES Final Result Performing Organization Address [facility] de Phone Number [facility] [phone] [address] Smart [place] [address] * (ABNORMAL) Comprehensive metabolic panel (01/30/2025 6:54 AM CDT) Sodium 146(H) 135 - 145 mmol/L Potassium, pl 3.6 3.3 - 4.9 mmol/L [facility] Chloride 104 97 - 110 mmol/L [facility] CO2 24 22 - 32 mmol/L [facility] Anion gap 18(H) 2 - 15 mmol/L [facility] BUN 5(L) 6 - 25 mg/dL [facility] Creatinine 0.58(L) 0.80 - 1.30 mg/dL [facility] Glucose 102 70 - 199 mg/dL [facility] Comment: Interpretive Data Fasting glucose [...] - 1.2 mg/dL [facility] Protein, pl 7.2 6.5 - 8.5 g/dL [facility] Albumin 4.3 3.5 - 5.0 g/dL [facility] Alk phos 74 40 - 130 Units/L [facility] ALT 55 7 - 55 Units/L [facility] AST 56(H) 10 - 50 Units/L [facility] Blood 01/30/2025 6:54 AM CDT 01/30/2025 7:00 AM CDT Bello Reeves MD LAB BLOOD ORDERABLES Final Result Performing Organization Address City/[facility]/ZIP Co de Phone Number [facility] [address] [address] [place] [address] * Calcium, ionized, whole blood (12/20/2024 8:34 AM CDT) Ca, ionized, bld 4.68 4.50 - 5.10 mg/dL Blood 12/20/2024 8:34 AM CDT 12/20/2024 8:47 AM CDT Meghana Chance MD LAB BLOOD ORDERABLES Lanette l Result [facility] [address] [address] Department [place] [address] * POCT glucose (12/20/2024 7:02 AM CDT) Glucose, POC 87 70 - 199 mg/dL POC Performer [id number] [facility] Blood 12/20/2024 7:02 AM CDT 12/20/2024 7:02 AM CDT Chito Miller MD LAB POCT ORDERABLES - DEVICE Final Result Performing Organization Address [facility] Co de Phone Number ETHAN STAHL [address] [address] [place] [address] * eGFR (12/20/2024 3:38 AM CDT) eGFR [...] ORDERABLES Lanette l Result Performing Organization Address City/[facility] Co de Phone Number ETHAN STAHL [address] [address] Department [place] [address] * (ABNORMAL) CBC without differential (12/20/2024 3:38 AM CDT) WBC 5.82 3.80 - 9.90 K/cumm Hgb 12.9(L) 13.0 - 17.5 g/dL [facility] Hct 39.0 38.9 - 50.3 % [facility] Plt 172 150 - 400 K/cumm [facility] MPV 11.3 9.1 - 12.3 fL [facility] RBC 3.97(L) 4.30 - 5.80 M/cumm [facility] MCV 98.2(H) 81.3 - 96.4 fL [facility] MCH 32.5 27.1 - 33.3 pg [facility] MCHC 33.1 32.3 - 35.7 g/dL [facility] RDW CV 12.4 11.1 - 14.9 % [facility] RDW SD 44.8 35.7 - 48.1 fL [facility] NRBC abs 0.00 0.00 - 0.01 K/cumm [facility] Blood 12/20/2024 3:38 AM CDT 12/20/2024 5:27 AM CDT Meghana Chance MD LAB BLOOD ORDERABLES Lanette l Result Performing Organization Address City/[facility]/ZIP Co de Phone Number [facility] [address] [address] Department [place] [address] * Phosphorus (12/20/2024 3:38 AM CDT) Pathologist [facility] Phosphorus, pl 3.8 2.3 - 4.5 mg/dL Blood 12/20/2024 3:38 AM CDT 12/20/2024 5:25 AM CDT Meghana Chance MD LAB BLOOD ORDERABLES Lanette l Result Performing Organization Address City/[facility]/ZIP Co de Phone Number [facility] [address] [address] Department [place] [address] * (ABNORMAL) Basic metabolic panel (12/20/2024 3:38 AM CDT) Sodium 137 135 - 145 mmol/L Potassium, pl 3.2(L) 3.3 - 4.9 mmol/L [facility] Chloride 99 97 - 110 mmol/L [facility] CO2 23 22 - 32 mmol/L [facility] Anion gap 15 2 - 15 mmol/L [facility] BUN 8 6 - 25 mg/dL [facility] Creatinine 0.72(L) 0.80 - 1.30 mg/dL [facility] [...] 2022. Calcium 9.1 8.5 - 10.3 mg/dL [facility] Blood 12/20/2024 3:38 AM CDT 12/20/2024 5:25 AM CDT Meghana Chance MD LAB BLOOD ORDERABLES Lanette l Result Performing Organization Address City/[facility]/ZIP Co de Phone Number [facility] [address] [address] [place] [address] * POCT glucose (12/20/2024 12:51 AM CDT) Glucose, POC 109 70 - 199 mg/dL POC Performer [id number] [facility] Blood 12/20/2024 12:5 1 AM CDT 12/20/2024 12:51 AM CDT Chito Miller MD LAB POCT ORDERABLES - DEVICE Final Result [facility] [address] [address] [place] [address] * POCT glucose (12/19/2024 9:18 PM CDT) Glucose, POC 96 70 - 199 mg/dL POC Performer [id number] [facility] Blood 12/19/2024 9:18 PM CDT 12/19/2024 9:18 PM CDT us Chito Miller MD LAB POCT ORDERABLES - DEVICE Final Result Performing Organization Address [facility] Co de Phone Number ETHAN STAHL [address] [address] [facility] [place] [address] * POCT glucose (12/19/2024 4:44 PM CDT) Glucose, POC 89 70 - 199 mg/dL POC Performer [id number] [facility] Blood 12/19/2024 4:44 PM CDT 12/19/2024 4:44 PM CDT Chito Miller MD LAB POCT ORDERABLES - DEVICE Final Result Performing Organization Address [facility] Co de Phone Number ETHAN STAHL [address] [address] [facility] [place] [address] * POCT glucose (12/19/2024 11:44 AM CDT) Glucose, POC 96 70 - 199 mg/dL POC Performer [id number] [facility] Blood 12/19/2024 11:4 4 AM CDT 12/19/2024 11:44 AM CDT us Chito Miller MD LAB POCT ORDERABLES - DEVICE Final Result Performing Organization Address [facility] Co de Phone Number ETHAN STAHL [address] [address] [facility] [place] [address] * (ABNORMAL) Calcium, ionized, whole blood (12/19/2024 6:02 AM CDT) Ca, ionized, bld 4.06(L) 4.50 - 5.10 mg/dL Blood 12/19/2024 6:02 AM CDT 12/19/2024 6:08 AM CDT Meghana Chance MD LAB BLOOD ORDERABLES Lanette l Result Performing Organization Address [facility] Co de Phone Number ETHAN STA[facility] [address] Department [place] [address] * eGFR (12/19/2024 6:02 AM CDT) eGFR [...] ORDERABLES Lanette l Result Performing Organization Address [facility] Co de Phone Number ETHAN STA[facility] [address] [place] [address] * (ABNORMAL) CBC without differential (12/19/2024 6:02 AM CDT) WBC 4.56 3.80 - 9.90 K/cumm Hgb 12.9(L) 13.0 - 17.5 g/dL [facility] Hct 39.2 38.9 - 50.3 % [facility] Plt 125(L) 150 - 400 K/cumm [facility] MPV 11.1 9.1 - 12.3 fL [facility] RBC 3.96(L) 4.30 - 5.80 M/cumm [facility] MCV 99.0(H) 81.3 - 96.[address] [facility] MCH 32.6 27.1 - 33.[address] MCHC 32.9 32.3 - 35.7 g/dL [facility] RDW CV 12.5 11.1 - 14.9 % [facility] RDW SD 45.5 35.7 - 48.1 fL [facility] NRBC abs 0.00 0.00 - 0.01 K/cumm [facility] Blood 12/19/2024 6:02 AM CDT 12/19/2024 6:10 AM CDT Meghana Chance MD LAB BLOOD ORDERABLES Lanette l Result Performing Organization Address City/[facility] Co de Phone Number ETHAN [address] [address] [facility] [place] [address] * Phosphorus (12/19/2024 6:02 AM CDT) Phosphorus, pl 3.6 2.3 - 4.5 mg/dL Blood 12/19/2024 6:02 AM CDT 12/19/2024 6:10 AM CDT Meghana Chance MD LAB BLOOD ORDERABLES Lanette l Result Performing Organization Address City/[facility] Co de Phone Number [facility] [address] [address] [facility] [place] [address] * Magnesium (12/19/2024 6:02 AM CDT) Magnesium 1.8 1.4 - 2.5 mg/dL Blood 12/19/2024 6:02 AM CDT 12/19/2024 6:10 AM CDT Meghana Chance MD LAB BLOOD ORDERABLES Lanette l Result Performing Organization Address City/[facility]/ZIP Co de Phone Number [facility] [address] [address] [facility] [employer] [place], [place] [id number] * (ABNORMAL) Basic metabolic panel (12/19/2024 6:02 AM CDT) Sodium 135 135 - 145 mmol/L Potassium, pl 3.1(L) 3.3 - 4.9 mmol/L [facility] Chloride 101 97 - 110 mmol/L [facility] CO2 24 22 - 32 mmol/L [facility] Anion gap 10 2 - 15 mmol/L [facility] BUN 4(L) 6 - 25 mg/dL [facility] Creatinine 0.64(L) 0.80 - 1.30 mg/dL [facility] Glucose 101 70 - 199 mg/dL [facility] Comment: [...] 2022. Calcium 9.1 8.5 - 10.3 mg/dL [facility] Blood 12/19/2024 6:02 AM CDT 12/19/2024 6:10 AM CDT Meghana Chance MD LAB BLOOD ORDERABLES Lanette bartholomew Result ETHAN [address] [address] Department [place] [address] * POCT glucose (12/19/2024 5:01 AM CDT) Glucose, POC 117 70 - 199 mg/dL POC Performer [id number] [facility] Blood 12/19/2024 5:01 AM CDT 12/19/2024 5:01 AM CDT John Barone MD LAB POCT ORDERABLES - DEVICE Fi nal Result Performing Organization Address [facility] Co de Phone Number ETHAN STAHL [address] [address] [facility] [place] [address] * POCT glucose (12/19/2024 12:35 AM CDT) Glucose, POC 173 70 - 199 mg/dL POC Performer [id number] [facility] Blood 12/19/2024 12:3 5 AM CDT 12/19/2024 12:35 AM CDT us John Barone MD LAB POCT ORDERABLES - DEVICE Fi nal Result Performing Organization Address [facility] Co de Phone Number ETHAN STAHL [address] [address] Department [place] [address] * POCT glucose (12/18/2024 9:42 PM CDT) Glucose, POC 107 70 - 199 mg/dL POC Performer [id number] [facility] Blood 12/18/2024 9:42 PM CDT 12/18/2024 9:42 PM CDT us John Barone MD LAB POCT ORDERABLES - DEVICE Fi nal Result Performing Organization Address [facility] Co de Phone Number ETHAN STAHL [address] [address] [place] [address] * Critical Care (12/18/2024 6:54 AM CDT) [...] plan with the patient's team and other medical/spa consultant staff. This time was in addition to and separate from care provided by other practitioners on this day of service. us Meghana Chance MD IN CLINIC/BEDSIDE ORDERAB LES Final Result * (ABNORMAL) Calcium, ionized, whole blood (12/18/2024 6:46 AM CDT) Ca, ionized, bld 4.14(L) 4.50 - 5.10 mg/dL Blood 12/18/2024 6:46 AM CDT 12/18/2024 7:03 AM CDT Meghana Chance MD LAB BLOOD ORDERABLES Lanette l Result ETHAN [address] [facility] [place] [address] * eGFR (12/18/2024 6:46 AM CDT) eGFR [...] of Race in Diagnosing Kidney Disease, JASN 2021). The CKD-EPI equation should not be used for patients with unstable renal function and has not been validated in children and those over 70. Current interpretive data was last reviewed 2021. Blood 12/18/2024 6:46 AM CDT 12/18/2024 7:03 AM CDT Meghana Chance MD LAB BLOOD ORDERABLES Lanette l Result Performing Organization Address [facility] Co de Phone Number ETHAN STAHL [address] [address] [facility] [place] [address] * Protime-INR (12/18/2024 6:46 AM CDT) PT 10.9 9.7 - 13.0 sec INR 1.01 0.90 - 1.20 [facility] Comment: Interpretive data Oral anticoagulant therapeutic ranges: Venous thromboembolism prophylaxis or treatment: 2.0-3.0 CARDIOLOGY Standard range: 2.0-3.0 High-intensity range: 2.5-3.5 Refer to indication-specific guidelines for appropriate target ranges for prosthetic heart valve replacement. Current interpretive data was last revised on 2019. Blood 12/18/2024 6:46 AM CDT 12/18/2024 7:04 AM CDT Meghana Chance MD LAB BLOOD ORDERABLES Lanette l Result Performing Organization Address [facility] de Phone Number ETHAN STA[facility] [address] [address] [facility] [place] [address] * (ABNORMAL) CBC without differential (12/18/2024 6:46 AM CDT) WBC 5.46 3.80 - 9.90 K/cumm Hgb 13.8 13.0 - 17.5 g/dL [facility] Hct 40.7 38.9 - 50.3 % [facility] Plt 145(L) 150 - 400 K/cumm [facility] MPV 10.8 9.1 - 12.3 fL [facility] RBC 4.15(L) 4.30 - 5.80 M/cumm [facility] MCV 98.1(H) 81.3 - 96.4 fL [facility] MCH 33.3 27.1 - 33.3 pg [facility] MCHC 33.9 32.3 - 35.7 g/dL [facility] RDW CV 12.8 11.1 - 14.9 % [facility] RDW SD 45.6 35.7 - 48.1 fL [facility] NRBC abs 0.00 0.00 - 0.01 K/cumm [facility] Blood 12/18/2024 6:46 AM CDT 12/18/2024 7:03 AM CDT Meghana Chance MD LAB BLOOD ORDERABLES Lanette l Result Performing Organization Address City/[facility] Co de Phone Number ETHAN [address] [address] [place] [address] * Phosphorus (12/18/2024 6:46 AM CDT) Phosphorus, pl 2.6 2.3 - 4.5 mg/dL Blood 12/18/2024 6:46 AM CDT 12/18/2024 7:03 AM CDT Meghana Chance MD LAB BLOOD ORDERABLES Lanette l Result Performing Organization Address [facility] de Phone Number [facility] [address] [address] [place] [address] * Magnesium (12/18/2024 6:46 AM CDT) Magnesium 2.4 1.4 - 2.5 mg/dL Blood 12/18/2024 6:46 AM CDT 12/18/2024 7:03 AM CDT Meghana Chance MD LAB BLOOD ORDERABLES Lanette l Result Performing Organization Address [facility] Co de Phone Number [facility] [address] [address] [facility] [place] [address] * (ABNORMAL) Basic metabolic panel (12/18/2024 6:46 AM CDT) Sodium 136 135 - 145 mmol/L Potassium, pl 3.4 3.3 - 4.9 mmol/L [facility] Chloride 96(L) 97 - 110 mmol/L [facility] CO2 26 22 - 32 mmol/L [facility] Anion gap 14 2 - 15 mmol/L [facility] BUN 4(L) 6 - 25 mg/dL [facility] Creatinine 0.58(L) 0.80 - 1.30 mg/dL [facility] Comment:Icteric sample, test results may be affected. Glucose 89 70 - 199 mg/dL [facility] Comment: Interpretive Data Fasting glucose [...] 2022. Calcium 8.8 8.5 - 10.3 mg/dL [facility] Blood 12/18/2024 6:46 AM CDT 12/18/2024 7:03 AM CDT Meghana Chance MD LAB BLOOD ORDERABLES Lanette l Result [facility] [address] [address] [place] [address] * Critical Care (12/17/2024 10:03 PM CDT) [...] plan with the patient's team and other medical/spa consultant staff. This time was in addition to and separate from care provided by other practitioners on this day of service. us Derian Hinds [employer] IN CLINIC/BEDSIDE ORDERABL ES Final Result * Troponin T high-sensitivity 6-hour (12/17/2024 5:29 PM CDT) [facility] Trop T hs 10 <=22 ng/L Comment: Interpretive Data For further hscTnT resources including the diagnostic algorithm and an aid in interpretation, copy and paste this link: https://nrl.testcatalog.org/show/hsTrop Current Interpretive Data last revised 2020. Trop T hs delta See Comment ng/L ETHAN Comment:Inappropriate collec tion time to report a delta. Trop T hs pct delta See Comment % [facility] Comment:Inappropriate collec tion time to report a delta. Trop T hs interp See Comment [facility] Comment:Inappropriate collec tion time to report a delta. Blood 12/17/2024 5:29 PM CDT 12/17/2024 5:59 PM CDT us Christina Shepard MD LAB BLOOD ORDERABLES F inal Result Performing Organization Address City/[facility] Co de Phone Number ETHAN FAVIO [address] [address] [place] [address] * Sepsis Lactate w/ Reflex (12/17/2024 5:29 PM CDT) [facility] Sepsis Lactate 1.8 0.7 - 2.0 mmol/L Blood 12/17/2024 5:29 PM CDT 12/17/2024 5:59 PM CDT us Jered Titus DO LAB BLOOD ORDERABLES Final Res ult Performing Organization Address [facility]/ZIP Co de Phone Number ETHAN FAVIO [address] [address] [facility] [employer] [place], [place] [id number] * (ABNORMAL) Calcium, ionized, whole blood (12/17/2024 5:29 PM CDT) [facility] Ca, ionized, bld 3.99(L) 4.50 - 5.10 mg/dL Blood 12/17/2024 5:29 PM CDT 12/17/2024 5:59 PM CDT Meghana Chance MD LAB BLOOD ORDERABLES Lanette l Result Performing Organization Address City/[facility]/ZIP Co de Phone Number ETHAN STAHL [address] [address] [place] [address] * eGFR (12/17/2024 5:29 PM CDT) eGFR [...] BLOOD ORDERABLES Lanette l Result ETHAN STAHL [address] [address] [place] [address] * (ABNORMAL) Phosphorus (12/17/2024 5:29 PM CDT) Phosphorus, pl 2.1(L) 2.3 - 4.5 mg/dL Blood 12/17/2024 5:29 PM CDT 12/17/2024 5:59 PM CDT Meghana Chance MD LAB BLOOD ORDERABLES Lanette l Result Performing Organization Address City/[facility]/ZIP Co de Phone Number ETHAN STAHL [address] [address] [facility] [place] [address] * (ABNORMAL) Magnesium (12/17/2024 5:29 PM CDT) Magnesium 1.1(L) 1.4 - 2.5 mg/dL Blood 12/17/2024 5:29 PM CDT 12/17/2024 5:59 PM CDT Meghana Chance MD LAB BLOOD ORDERABLES Lanette l Result Performing Organization Address [facility] de Phone Number ETHAN STAHL [address] [address] [place] [address] * (ABNORMAL) Basic metabolic panel (12/17/2024 5:29 PM CDT) Pathologist [facility] Sodium 138 135 - 145 mmol/L Potassium, pl 3.4 3.3 - 4.9 mmol/L [facility] Chloride 97 97 - 110 mmol/L [facility] CO2 24 22 - 32 mmol/L [facility] Anion gap 17(H) 2 - 15 mmol/L [facility] BUN 6 6 - 25 mg/dL [facility] Creatinine 0.50(L) 0.80 - 1.30 mg/dL [facility] Glucose 90 70 - 199 mg/dL [facility] Comment: Interpretive Data Fasting glucose [...] 2022. Calcium 8.8 8.5 - 10.3 mg/dL [facility] Blood 12/17/2024 5:29 PM CDT 12/17/2024 5:59 PM CDT Meghana Chance MD LAB BLOOD ORDERABLES Lanette l Result Performing Organization Address [facility] Co de Phone Number ETHAN STAHL [address] [address] [place] [address] * ECG 12 lead (12/17/2024 4:45 PM CDT) 12/17/2024 4:45 PM CDT Narrative [facility] - 12/17/2024 6:24 PM CDT Vent Rate: 119 bpm RR Interval: 503 msec OK Interval: 149 msec QRS Duration: 81 msec QT Interval: 310 msec QTC Interval: 381 msec P-R-T Fosters: 56 - 38 - 44 degrees IMPRESSION: SINUS TACHYCARDIA ABNORMAL RHYTHM ECG Electronically Signed By: Dr. Adriana Hernandez [facility] Meghana Chance MD ECG ORDERABLES Final Res ult Performing Organization Address [facility] de Phone Number [facility] * POCT glucose (12/17/2024 3:36 PM CDT) [facility] Signature Glucose, POC 98 70 - 199 mg/dL POC Performer [id number] [facility] Blood 12/17/2024 3:36 PM CDT 12/17/2024 3:36 PM CDT Meghana Chance MD LAB POCT ORDERABLES - DEV ICE Final Result Performing Organization Address [facility] Co de Phone Number ETHAN STAHL [address] [address] [place] [address] * Critical Care (12/17/2024 3:34 PM CDT) [...] plan with the ICU team and other medical/spa consultant staff, making frequent assessments and decisions [...] Lactate w/ Reflex (12/17/2024 2:46 PM CDT) [facility] Sepsis Lactate 5.7(C) 0.7 - 2.0 mmol/L Comment:Critical result call ed to and read back by Sarah Grimes (RN_) on 12/17/2024 15:28:04 CDT_ to Cathi Dixon . Blood 12/17/2024 2:46 PM CDT 12/17/2024 3:04 PM CDT us Jered Titus DO LAB [place] [address] [address] Department [place] [address] * Troponin T high-sensitivity 4-hour (12/17/2024 1:20 PM CDT) Trop T hs 10 <=22 ng/L Comment: Interpretive Data For further hscTnT resources including the diagnostic algorithm and an aid in interpretation, copy and paste this link: https://nrl.testcatAnalogix Sem[employer].org/show/hsTrop Current Interpretive Data last revised 2020. Trop T hs delta 1 ng/L [facility] Trop T hs interp Insignificant [facility] Blood 12/17/2024 1:20 PM CDT 12/17/2024 1:29 PM CDT Christina Shepard MD LAB BLOOD ORDERABLES F inal Result Performing Organization Address City/[facility]/ZIP Co de Phone Number [facility] [address] [address] [place] [address] * (ABNORMAL) Beta-hydroxybutyrate (12/17/2024 1:20 PM CDT) Pathologist [facility] Beta-Hydroxybut yrate 0.8(H) <=0.5 mmol/L Blood 12/17/2024 1:20 PM CDT 12/17/2024 1:48 PM CDT Jered Titus DO LAB BLOOD ORDERABLES Final Res ult Performing Organization Address City/[facility]/ZIP Co de Phone Number [facility] [address] [address] Department of [employer] [place], [place] [address] * Troponin T high-sensitivity 2-hour (12/17/2024 11:42 AM CDT) Trop T hs 10 <=22 ng/L Comment: Interpretive Data For further hscTnT resources including the diagnostic algorithm and an aid in interpretation, copy and paste this link: https://nrl.testcatAnalogix [employer].org/show/hsTrop Current Interpretive Data last revised 2020. Trop T hs delta 1 ng/L [facility] Trop T hs interp Insignificant [facility] Blood 12/17/2024 11:4 2 AM CDT 12/17/2024 12:04 PM CDT Christina Shepard MD LAB BLOOD ORDERABLES F inal Result Performing Organization Address [facility] [place] [address] [address] [facility] [place] [address] * (ABNORMAL) Sepsis Lactate w/ Reflex (12/17/2024 11:42 AM CDT) Sepsis Lactate 6.9(C) 0.7 - 2.0 mmol/L Comment:Alert Lactate called to and read back by Kenzie Cordero at 12/17/2024 12:09:20 CDT by Kallie Sabillon. Blood 12/17/2024 11:4 2 AM CDT 12/17/2024 12:03 PM CDT Jered Titus DO LAB BLOOD ORDERABLES Final Res ult Performing Organization Address [facility] [place] [address] [address] [facility] [place] [address] * CT Head WO Contrast (12/17/2024 11:36 [...] DO IMG CT PROCEDURES Final Result * OK CRITICAL CARE ILL/INJURED PATIENT INIT 30-74 MIN [...] findings. Electronically signed by: Ajit Aguillon M.D. us Jered Titus DO IMG XR PROCEDURES Final [...] BLOOD ORDERABLES Edited Re sult - Final Performing Organization Address City/[facility]/ZIP Co de Phone Number [facility]AN STA[facility] [address] Department of [employer] [place], [place] [id number] * eGFR (12/17/2024 9:41 AM CDT) eGFR [...] ORDERABLES Final Res ult Performing Organization Address City/[facility]/ZIP Co de Phone Number ETHAN STAHL [address] Department of [employer] [place], [place] [id number] * (ABNORMAL) Differential, auto (12/17/2024 9:41 AM CDT) Neutrophil abs 9.85(H) 1.50 - 6.50 K/cumm Imm gran abs 0.06 0.00 - 0.10 K/cumm [facility] Lymphocyte abs 1.60 0.80 - 3.30 K[facility]cumm [facility] Monocyte abs 0.73 0.20 - 0.80 K/cumm [facility] Eosinophil abs 0.05 0.00 - 0.50 K/cumm [facility] Basophil abs 0.09 0.00 - 0.10 K/cumm [facility] Neutrophil pct 79.6 % [facility] Comment: Interpretive Data Percent cell count reference ranges are not reported, since discordance with absolute values may lead to misinterpretation of CBC data. Current Interpretive Data was last revised on 2017. Imm gran pct 0.5 % [facility] Comment: Interpretive Data Percent cell count reference ranges are not reported, since discordance with absolute values may lead to misinterpretation of CBC data. Current Interpretive Data was last revised on 2017. Lymphocyte pct 12.9 % [facility] Comment: Interpretive Data Percent cell count reference ranges are not reported, since discordance with absolute values may lead to misinterpretation of CBC data. Current Interpretive Data was last revised on 2017. Monocyte pct 5.9 % [facility] Comment: Interpretive Data Percent cell count reference ranges are not reported, since discordance with absolute values may lead to misinterpretation of CBC data. Current Interpretive Data was last revised on 2017. Eosinophil pct 0.4 % [facility] Comment: Interpretive Data Percent cell count reference ranges are not reported, since discordance with absolute values may lead to misinterpretation of CBC data. Current Interpretive Data was last revised on 2017. Basophil pct 0.7 % [facility] Comment: Interpretive Data Percent cell count reference ranges are not reported, since discordance with absolute values may lead to misinterpretation of CBC data. Current Interpretive Data was last revised on 2017. Blood 12/17/2024 9:41 AM CDT 12/17/2024 9:48 AM CDT us Jered Titus DO LAB [place] [address] [address] [place] [address] * Pro B-type natriuretic peptide (12/17/2024 9:41 [...] ORDERABLES Final Res ult Performing Organization Address [facility] [place] [address] [address] [employer] [place] [address] * (ABNORMAL) CBC with auto differential (12/17/2024 9:41 AM CDT) WBC 12.38(H) 3.80 - 9.90 K/cumm Hgb 14.4 13.0 - 17.5 g/dL [facility] Hct 43.7 38.9 - 50.3 % [facility] Plt 175 150 - 400 K/cumm [facility] Comment:No clot detected in sample. MPV 10.9 9.1 - 12.3 fL [facility] RBC 4.42 4.30 - 5.80 M/cumm [facility] MCV 98.9(H) 81.3 - 96.4 fL [facility] MCH 32.6 27.1 - 33.3 pg [facility] MCHC 33.0 32.3 - 35.7 g/dL [facility] RDW CV 12.9 11.1 - 14.9 % [facility] RDW SD 46.7 35.7 - 48.1 fL [facility] NRBC abs 0.00 0.00 - 0.01 K/cumm [facility] Morphologic Screen Results confirmed by manual morphology review. [facility] Blood 12/17/2024 9:41 AM CDT 12/17/2024 9:48 AM CDT Jered Titus LAB BLOOD ORDERABLES Final Res ult Performing Organization Address [facility] de Phone Number [place] [address] [address] [facility] [address] [place] [address] * Magnesium (12/17/2024 9:41 AM CDT) Pathologist [facility] Magnesium 1.5 1.4 - 2.5 mg/dL Blood 12/17/2024 9:41 AM CDT 12/17/2024 11:25 AM CDT Jered Titus LAB BLOOD ORDERABLES Final Res ult Performing Organization Address [facility] Co de Phone Number [facility] [address] [address] [place] [address] * (ABNORMAL) Ethanol (12/17/2024 9:41 AM CDT) Ethanol 173(H) <=10 mg/dL Comment: Interpretive Data Legal limit of intoxication > or = 80 mg/dL Levels > or = 400 mg/dL are potentially TOXIC. Current interpretive data was last revised on 2018. Blood 12/17/2024 9:41 AM CDT 12/17/2024 11:25 AM CDT us Jered Titus DO LAB BLOOD ORDERABLES Final Res ult [facility] [address] [place] [address] * (ABNORMAL) Comprehensive metabolic panel (12/17/2024 9:41 [...] ORDERABLES Final Res ult Performing Organization Address [facility] [place] [address] Department [place] [address] * ECG 12 lead (12/17/2024 8:50 AM CDT) 12/17/2024 8:50 AM CDT Narrative [facility] - 12/17/2024 6:31 PM CDT Vent Rate: 145 bpm RR Interval: 413 msec OK Interval: 131 msec QRS Duration: 86 msec QT Interval: 290 msec QTC Interval: 373 msec P-R-T Fosters: 38 - -69 - 46 degrees IMPRESSION: SINUS TACHYCARDIA, POSSIBLE ATRIAL FLUTTER LOW QRS VOLTAGE IN PRECORDIAL LEADS [QRS DEFLECTION < 1.0 mV IN CHEST LEADS] PATTERN CONSISTENT WITH PULMONARY DISEASE Poor R-wave progression Electronically Signed By: Dr. Adriana Hernandez [facility] Christina Shepard MD ECG ORDERABLES Final Result Performing Organization Address [facility] Co de Phone [facility] from Last 3 Months Insurance [facility] CARE [facility]AN [facility] CARE Advance Directives For more information, please contact: [phone] * Full Code (Latest Code Status on File) Date Activated Date Inactivated Comments 01/30/2025 9:16 AM 02/01/2025 6:00 PM * Full Code Date Activated Date Inactivated Comments 12/17/2024 1:49 PM 12/20/2024 5:14 PM * Full Code Date Activated Date Inactivated Comments 10/30/2024 2:54 PM 11/03/2024 9:58 PM * Full Code Date Activated Date Inactivated Comments 10/22/2024 1:28 AM 10/25/2024 7:31 PM * Full Code Date Activated Date Inactivated Comments 10/10/2024 12:20 PM 10/13/2024 5:59 PM Care Teams Birthing Nurse Relationship Specialty Start Date End Date Weston Mantilla DO PCP - General Family Medicine 09/03/23 Kimberli Collins DPM [address] [place] [id number] Consulting Physician Foot and Ankle Surg 09/14/23
--- OUTSIDE RECORDS SUMMARY | 2025-02-11 07:19 | XMS_ITS | Continuity of Care Document ---
Author Organization [facility] Address [address] [place] [address] Phone Care Team Providers Care Ag Service Manager Name Role Phone Unavailable Unavailable Unavailable Procedures [...] Diagnoses Date Provider Providers Copied on Encounter [facility] , [address], [place], [place], [id number], tel:[phone] [facility] Encounter for dental exam and cleaning w abnormal findings No Information Referring Provider: Keyshawn Solis, [address], [place], [address]. tel:[phone] [facility] , [address], [place], [place], [id number], tel:[phone] [facility] Encounter for dental exam and cleaning w abnormal findings No Information Family History Family Member Type Diagnosis Age At Onset No Information Payers Payer name Insurance type Covered libertarian ID Authoradama ijeoma(s) G - ATSU [facility] 09 Social History Type Description [...]
--- OUTSIDE RECORDS SUMMARY | 2025-02-11 07:19 | XMS_ITS | Referral Summary ---
Author Organization [facility] [address] Address [address] [place] [address] Care Team Providers Care Twisthand Name Role Phone Weston Mantilla Primary Care Provide r Kimberli Collins DPM Unavailable [phone] Encounters Date Type Department Care Team Description 02/04/2025 Documentation [facility] Warm Hand Off Program 1 [place], [place] [phone] Tammy Anderson 02/04/2025 7:05 AM CDT - 02/04/2025 2:15 PM CDT Emergency [facility] Emergency Department 1 [place] [address] Jr Garza MD Alcohol abuse (Primary Dx) Discharge Disposition: Discharge to home or self care 02/03/2025 [facility] Post Discharge Follow up phone call [address] [address] Soledad Chun RN 02/02/2025 [facility] Post Discharge Follow up phone call [address] [address] Soledad Chun RN 01/30/2025 6:32 AM CDT - 02/01/2025 1:55 PM CDT Hospital Encounter [address] [address] Bola Hernandez MD Ogunremi, Olumide Omolulu, MD Burton, Jeffrey Ryan, DO Alcohol use disorder (Primary Dx); Alcohol withdrawal syndrome with complication (HCC) Discharge Disposition: Discharge to home or self care 12/26/2024 [facility] Post Discharge Follow up phone call [address] [address] Aalnnah Mack 12/17/2024 8:47 AM CDT - 12/20/2024 1:09 PM CDT Hospital Encounter [address] [address] Jered Titus, Meghana Melchor MD Onaghise, Jude, MD Ogunremi, MD Bao Barraza Jeffrey Ryan, DO Alcohol withdrawal syndrome with [...] drink = 0.6 oz pur e alcohol) franklyncynthia [facility] Utilities Answer Date Recorded In the past 12 months has e [employer], gas, oil, or water [employer] threatened to shut off services in your [...] often do you attend chur ch or bahai services? Never 12/18/2024 Do you belong to any clubs o r organizations such as alevism groups, unions, fraternal or athletic groups, or [...] any time in the past 12 m [facility], were you homeless or living in a mcc (including now)? No 12/18/2024 Personal Safety Answer Date Recorded Have you ever been in or are you currently in a harmful physical or emotional relationship or is someone making you feel afraid or unsafe? 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 Gender Identity Not on file Sexual Orientation [...] 02/04/2025 7:09 AM CDT Plan of Treatment Not on file Medical Devices Implanted Type Area Ciso Device Identifier Shelf Expiration Date Model / Serial / Lot Boy [employer] Enio 1.1mm 152mm Trocar Point 2 End Style 1 Wire Fixation [id number] - [id number] - [id number] Implanted:Qty: 2 on 09/14/2023 by Kimberli Collins DPM at [facility] Explanted:03/13 (Quantity not on file) Right: Toes [employer] 03/09/2032 [id number] / [id number] / [id number] Description:K-WIRE TO 3RD AN D 4TH TOES, [...] AUTO DIFFERENTIAL Routine 01/31/2025 5:02 AM CDT RI CRITICAL CARE ILL/INJURED PATIENT [...] * (ABNORMAL) Ethanol (02/04/2025 12:32 PM CDT) Pathologist [facility] Emergency Department Ethanol 226(H) <=10 mg/dL Comment: Interpretive Data Legal limit of intoxication > or = 80 mg/dL Levels > or = 400 mg/dL are potentially TOXIC. Current interpretive data was last revised on 2018. Blood 02/04/2025 12:3 2 PM CDT 02/04/2025 12:38 PM CDT us Jr Garza MD LAB BLOOD ORDERABLES Final R esult [facility] ([place]) 1 [facility] [place] [address] * eGFR (02/04/2025 8:05 AM CDT) Pathologist [facility] [...] MD LAB BLOOD ORDERABLES Final R esult [facility] ([place]) 1 [facility] [place] [address] * (ABNORMAL) Differential, auto (02/04/2025 8:05 AM [...] Neutrophil pct 77.0 % [facility] ([place]) Comment: Interpretive [...] Eosinophil pct 0.9 % [facility] ([place]) Comment: Interpretive [...] Final R esult [facility] ([place]) 1 [facility] Department of Laboratories [place], [place] [id number] * (ABNORMAL) CBC with auto differential (02/04/2025 8:05 AM CDT) WBC 17.11(H) 3.80 - 9.90 K/cumm Hgb 16.1 13.0 - 17.5 g/dL [facility] ([place]) Hct 47.7 38.9 - 50.3 % [...] RDW CV 13.1 11.1 - 14.9 % [facility] ([place]) RDW SD 46.5 35.7 - 48.[address] [facility] ([facility]) NRBC abs 0.00 0.00 - 0.01 K/cumm [facility] ([facility]) Blood 02/04/2025 8:05 AM CDT 02/04/2025 8:08 AM CDT Jr Garza MD LAB BLOOD ORDERABLES Final R esult [facility] ([place]) 1 [facility] [place] [address] * Magnesium (02/04/2025 8:05 AM CDT) Magnesium 1.7 1.4 - 2.5 mg/dL Blood 02/04/2025 8:05 AM CDT 02/04/2025 8:08 AM CDT Jr Garza MD LAB BLOOD ORDERABLES Final R esult [facility] ([place]) 1 [facility] [place] [address] * Lipase (02/04/2025 8:05 AM CDT) Lipase 20 10 - 99 Units/L Blood 02/04/2025 8:05 AM CDT 02/04/2025 8:08 AM CDT Jr Garza MD LAB BLOOD ORDERABLES Final R esult Performing Organization Address City/[facility] Co de Phone Number [facility] ([place]) 1 [facility] [place] [address] * (ABNORMAL) Ethanol (02/04/2025 8:05 AM CDT) Ethanol 335(C) <=10 mg/dL Comment: Critical Result called by [email or web address] at 2025-02-04 08:35:23. Result Read Back by Branden Acosta/er Interpretive Data Legal limit of intoxication > or = 80 mg/dL Levels > or = 400 mg/dL are potentially TOXIC. Current interpretive data was last revised on 2018. Blood 02/04/2025 8:05 AM CDT 02/04/2025 8:08 AM CDT Jr Garza MD LAB BLOOD ORDERABLES Final R esult Performing Organization Address [facility] Co de Phone Number [facility] ([place]) 1 [facility] [place] [address] * (ABNORMAL) Comprehensive metabolic panel (02/04/2025 8:05 AM CDT) Sodium 143 135 - 145 mmol/L Potassium, pl 3.7 3.3 - 4.9 mmol/L [facility] ([place]) Chloride 103 97 - 110 mmol/L [facility] ([place]) CO2 21(L) 22 - 32 mmol/L [facility] ([place]) Anion gap 20(H) 2 - 15 mmol/L [facility] ([place]) BUN 5(L) 6 - 25 mg/dL [facility] ([place]) Creatinine 0.77(L) 0.80 - 1.30 mg/dL [facility] ([place]) Glucose 95 70 - 199 mg/dL [facility] ([place]) Comment: Interpretive Data Fasting glucose >/= [...] Final R esult [facility] ([place]) 1 [facility] [place] [address] * eGFR (01/31/2025 5:02 AM CDT) eGFR [...] NP LAB BLOOD ORDERABLES Final R esult [facility] [address] [address] Department [place] [address] * Differential, auto (01/31/2025 5:02 AM CDT) Neutrophil abs 2.16 1.50 - 6.50 K/cumm Imm gran abs 0.01 0.00 - 0.10 K/cumm [facility] Lymphocyte abs 1.60 0.80 - 3.30 K/cumm [facility] Monocyte abs 0.47 0.20 - 0.80 K/cumm [facility] Eosinophil abs 0.22 0.00 - 0.50 K/cumm [facility] Basophil abs 0.04 0.00 - 0.10 K/cumm [facility] Neutrophil pct 48.0 % [facility] Comment: Interpretive Data Percent cell count reference ranges are not reported, since discordance with absolute values may lead to misinterpretation of CBC data. Current Interpretive Data was last revised on 2017. Imm gran pct 0.2 % [facility] Comment: Interpretive Data Percent cell count reference ranges are not reported, since discordance with absolute values may lead to misinterpretation of CBC data. Current Interpretive Data was last revised on 2017. Lymphocyte pct 35.6 % [facility] Comment: Interpretive Data Percent cell count reference ranges are not reported, since discordance with absolute values may lead to misinterpretation of CBC data. Current Interpretive Data was last revised on 2017. Monocyte pct 10.4 % [facility] Comment: Interpretive Data Percent cell count reference ranges are not reported, since discordance with absolute values may lead to misinterpretation of CBC data. Current Interpretive Data was last revised on 2017. Eosinophil pct 4.9 % [facility] Comment: Interpretive Data Percent cell count reference ranges are not reported, since discordance with absolute values may lead to misinterpretation of CBC data. Current Interpretive Data was last revised on 2017. Basophil pct 0.9 % [facility] Comment: Interpretive Data Percent cell count reference ranges are not reported, since discordance with absolute values may lead to misinterpretation of CBC data. Current Interpretive Data was last revised on 2017. Blood 01/31/2025 5:02 AM CDT 01/31/2025 5:11 AM CDT Susanne Lamar NP LAB BLOOD ORDERABLES Final R esult [facility] [address] [address] Department [place] [address] * (ABNORMAL) CBC with auto differential (01/31/2025 5:02 AM CDT) WBC 4.50 3.80 - 9.90 K/cumm Hgb 13.0 13.0 - 17.5 g/dL [facility] Hct 40.2 38.9 - 50.3 % [facility] Plt 198 150 - 400 K/cumm [facility] MPV 10.1 9.1 - 12.[address] [facility] RBC 3.99(L) 4.30 - 5.80 M/cumm [facility] MCV 100.8(H) 81.3 - 96.[address] [facility] MCH 32.6 27.1 - 33.[address] [facility] MCHC 32.3 32.3 - 35.7 g/dL [facility] RDW CV 12.5 11.1 - 14.9 % [facility] RDW SD 46.6 35.7 - 48.[address] [facility] NRBC abs 0.00 0.00 - 0.01 K/cumm [facility] Blood 01/31/2025 5:02 AM CDT 01/31/2025 5:11 AM CDT us Susanne Lamar NP LAB BLOOD ORDERABLES Final R esult [facility] [address] [address] Department [place] [address] * (ABNORMAL) Basic metabolic panel (01/31/2025 5:02 AM CDT) Sodium 142 135 - 145 mmol/L Potassium, pl 3.5 3.3 - 4.9 mmol/L [facility] Chloride 105 97 - 110 mmol/L [facility] CO2 24 22 - 32 mmol/L [facility] Anion gap 13 2 - 15 mmol/L [facility] BUN 10 6 - 25 mg/dL [facility] Creatinine 0.66(L) 0.80 - 1.30 mg/dL [facility] Glucose 90 70 - 199 mg/dL [facility] Comment: Interpretive Data Fasting glucose [...] 2022. Calcium 9.0 8.5 - 10.3 mg/dL [facility] Blood 01/31/2025 5:02 AM CDT 01/31/2025 5:11 AM CDT us Susanne Lamar NP LAB BLOOD ORDERABLES Final R esult [facility] [address] [address] Department [place] [address] * RI CRITICAL CARE ILL/INJURED PATIENT INIT [...] 12 lead (01/30/2025 6:56 AM CDT) 01/30/2025 6:5 6 AM CDT Narrative [facility] - 01/30/2025 10:25 AM CDT Vent Rate: 110 bpm RR Interval: 541 msec RI Interval: 155 msec QRS Duration: 92 msec QT Interval: 334 msec QTC Interval: 399 msec P-R-T [place]: 60 - 18 - 53 degrees IMPRESSION: SINUS TACHYCARDIA Electronically Signed By: Mitch Schaefer MD, [facility] us Bello Reeves MD ECG ORDERABLES Final Resul t [facility] * eGFR (01/30/2025 6:54 AM CDT) eGFR [...] 6:54 AM CDT 01/30/2025 7:01 AM CDT us Bello Reeves MD LAB BLOOD ORDERABLES Final Result [facility] [address] [address] Department [place] [address] * (ABNORMAL) Differential, auto (01/30/2025 6:54 AM CDT) Neutrophil abs 4.01 1.50 - 6.50 K/cumm Imm gran abs 0.01 0.00 - 0.10 K/cumm [facility] Lymphocyte abs 3.92(H) 0.80 - 3.30 K/cumm [facility] Monocyte abs 1.20(H) 0.20 - 0.80 K/cumm [facility] Eosinophil abs 0.09 0.00 - 0.50 K/cumm [facility] Basophil abs 0.05 0.00 - 0.10 K/cumm [facility] Neutrophil pct 43.3 % [facility] Comment: Interpretive Data Percent cell count reference ranges are not reported, since discordance with absolute values may lead to misinterpretation of CBC data. Current Interpretive Data was last revised on 2017. Imm gran pct 0.1 % [facility] Comment: Interpretive Data Percent cell count reference ranges are not reported, since discordance with absolute values may lead to misinterpretation of CBC data. Current Interpretive Data was last revised on 2017. Lymphocyte pct 42.2 % [facility] Comment: Interpretive Data Percent cell count reference ranges are not reported, since discordance with absolute values may lead to misinterpretation of CBC data. Current Interpretive Data was last revised on 2017. Monocyte pct 12.9 % [facility] Comment: Interpretive Data Percent cell count reference ranges are not reported, since discordance with absolute values may lead to misinterpretation of CBC data. Current Interpretive Data was last revised on 2017. Eosinophil pct 1.0 % [facility] Comment: Interpretive Data Percent cell count reference ranges are not reported, since discordance with absolute values may lead to misinterpretation of CBC data. Current Interpretive Data was last revised on 2017. Basophil pct 0.5 % [facility] Comment: Interpretive Data Percent cell count reference ranges are not reported, since discordance with absolute values may lead to misinterpretation of CBC data. Current Interpretive Data was last revised on 2017. Blood 01/30/2025 6:54 AM CDT 01/30/2025 7:00 AM CDT us Bello Reeves MD LAB BLOOD ORDERABLES Final Result [facility] [address] [address] Department [place] [address] * (ABNORMAL) CBC with auto differential (01/30/2025 6:54 AM CDT) WBC 9.28 3.80 - 9.90 K/cumm Hgb 14.2 13.0 - 17.5 g/dL [facility] Hct 43.0 38.9 - 50.3 % [facility] Plt 302 150 - 400 K/cumm [facility] MPV 9.5 9.1 - 12.[address] [facility] RBC 4.33 4.30 - 5.80 M/cumm [facility] MCV 99.3(H) 81.3 - 96.[address] [facility] MCH 32.8 27.1 - 33.[address] [facility] MCHC 33.0 32.3 - 35.7 g/dL [facility] RDW CV 12.8 11.1 - 14.9 % [facility] RDW SD 47.4 35.7 - 48.[address] [facility] NRBC abs 0.00 0.00 - 0.01 K/cumm [facility] Blood Venous blood specimen / Unknown 01/30/2025 6:54 AM CDT 01/30/2025 7:00 AM CDT Bello Reeves MD LAB BLOOD ORDERABLES Final Result Performing Organization Address [facility] Co de Phone Number [facility] [address] [address] [facility] [place] [address] * Lipase (01/30/2025 6:54 AM CDT) Lipase 18 10 - 99 Units/L Blood 01/30/2025 6:54 AM CDT 01/30/2025 8:51 AM CDT Bola Hernandez MD LAB BLOOD ORDERABLES Final Resul t Performing Organization Address [facility] de Phone Number [facility] [address] [address] Department [place] [address] * (ABNORMAL) Ethanol (01/30/2025 6:54 AM CDT) Ethanol 297(H) <=10 mg/dL Comment: Interpretive Data Legal limit of intoxication > or = 80 mg/dL Levels > or = 400 mg/dL are potentially TOXIC. Current interpretive data was last revised on 2018. Blood 01/30/2025 6:54 AM CDT 01/30/2025 7:00 AM CDT Bello Reeves MD LAB BLOOD ORDERABLES Final Result Performing Organization Address [facility]/ZIP Co de Phone Number [facility] [address] Department [place] [address] * (ABNORMAL) Comprehensive metabolic panel (01/30/2025 6:54 AM CDT) Sodium 146(H) 135 - 145 mmol/L Potassium, pl 3.6 3.3 - 4.9 mmol/L [facility] Chloride 104 97 - 110 mmol/L [facility] CO2 24 22 - 32 mmol/L [facility] Anion gap 18(H) 2 - 15 mmol/L [facility] BUN 5(L) 6 - 25 mg/dL [facility] Creatinine 0.58(L) 0.80 - 1.30 mg/dL [facility] Glucose 102 70 - 199 mg/dL [facility] Comment: [...] 6:54 AM CDT 01/30/2025 7:00 AM CDT us Bello Reeves MD LAB BLOOD ORDERABLES Final Result [facility] [address] [address] Department [place] [address] * Calcium, ionized, whole blood (12/20/2024 8:34 AM CDT) Pathologist [facility] Ca, ionized, bld 4.68 4.50 - 5.10 mg/dL Blood 12/20/2024 8:34 AM CDT 12/20/2024 8:47 AM CDT Meghana Chance MD LAB BLOOD ORDERABLES Lanette l Result [facility] [address] [address] Department [place] [place] [address] * POCT glucose (12/20/2024 7:02 AM CDT) [facility] Glucose, POC 87 70 - 199 mg/dL POC Performer [id number] [facility] Blood 12/20/2024 7:02 AM CDT 12/20/2024 7:02 AM CDT Chito Miller MD LAB POCT ORDERABLES - DEVICE Final Result Performing Organization Address [facility] Co de Phone Number [facility] [address] [address] [place] [address] * eGFR (12/20/2024 3:38 AM CDT) [facility] eGFR >90 >=60 mL/min/1. 73 m2 Comment: [...] ORDERABLES Lanette l Result Performing Organization Address City/[facility]/ZIP Co de Phone Number [facility] [address] [place] [address] * (ABNORMAL) CBC without differential (12/20/2024 3:38 AM CDT) WBC 5.82 3.80 - 9.90 K/cumm Hgb 12.9(L) 13.0 - 17.5 g/dL [facility] Hct 39.0 38.9 - 50.3 % [facility] Plt 172 150 - 400 K/cumm [facility] MPV 11.3 9.1 - 12.3 fL [facility] RBC 3.97(L) 4.30 - 5.80 M/cumm [facility] [...] ORDERABLES Lanette l Result Performing Organization Address City/[facility]/ZIP Co de Phone Number [facility] [address] [address] [place] [address] * Phosphorus (12/20/2024 3:38 AM CDT) Phosphorus, pl 3.8 2.3 - 4.5 mg/dL Blood 12/20/2024 3:38 AM CDT 12/20/2024 5:25 AM CDT Meghana Chance MD LAB BLOOD ORDERABLES Lanette l Result [facility] [address] [address] Department [place] [address] * (ABNORMAL) Basic metabolic panel (12/20/2024 3:38 AM CDT) Sodium 137 135 - 145 mmol/L Potassium, pl 3.2(L) 3.3 - 4.9 mmol/L [facility] Chloride 99 97 - 110 mmol/L [facility] CO2 23 22 - 32 mmol/L [facility] Anion gap 15 2 - 15 mmol/L [facility] BUN 8 6 - 25 mg/dL [facility] Creatinine 0.72(L) 0.80 - 1.30 mg/dL [facility] Glucose 103 70 - 199 mg/dL [facility] Comment: Interpretive Data Fasting glucose >/= 126 [...] 2022. Calcium 9.1 8.5 - 10.3 mg/dL [facility] Blood 12/20/2024 3:38 AM CDT 12/20/2024 5:25 AM CDT Meghana Chance MD LAB BLOOD ORDERABLES Lanette l Result [facility] [address] Department [place] [address] * POCT glucose (12/20/2024 12:51 AM CDT) Glucose, POC 109 70 - 199 mg/dL POC Performer [id number] [facility] Blood 12/20/2024 12:5 1 AM CDT 12/20/2024 12:51 AM CDT Chito Miller MD LAB POCT ORDERABLES - DEVICE Final Result Performing Organization Address City/[facility] Co de Phone Number [facility] [address] [place] [address] * POCT glucose (12/19/2024 9:18 PM CDT) Glucose, POC 96 70 - 199 mg/dL POC Performer [id number] [facility] Blood 12/19/2024 9:18 PM CDT 12/19/2024 9:18 PM CDT Chito Miller MD LAB POCT ORDERABLES - DEVICE Final Result Performing Organization Address [facility] Co de Phone Number [facility] [address] [place] [address] * POCT glucose (12/19/2024 4:44 PM CDT) Glucose, POC 89 70 - 199 mg/dL POC Performer [id number] [facility] Blood 12/19/2024 4:44 PM CDT 12/19/2024 4:44 PM CDT Chito Miller MD LAB POCT ORDERABLES - DEVICE Final Result Performing Organization Address City/[facility]/ZIP Co de Phone Number [facility] [address] [place] [address] * POCT glucose (12/19/2024 11:44 AM CDT) Glucose, POC 96 70 - 199 mg/dL POC Performer [id number] [facility] Blood 12/19/2024 11:4 4 AM CDT 12/19/2024 11:44 AM CDT Chito Miller MD LAB POCT ORDERABLES - DEVICE Final Result Performing Organization Address City/[facility]/ZIP Co de Phone Number [facility] [address] [address] Department [place] [address] * (ABNORMAL) Calcium, ionized, whole blood (12/19/2024 6:02 AM CDT) Pathologist [facility] Ca, ionized, bld 4.06(L) 4.50 - 5.10 mg/dL Blood 12/19/2024 6:02 AM CDT 12/19/2024 6:08 AM CDT us Meghana Chance MD LAB BLOOD ORDERABLES Lanette l Result Performing Organization Address [facility] Co de Phone Number [facility] [address] [address] [place] [address] * eGFR (12/19/2024 6:02 AM CDT) [facility]ologist [facility] [...] BLOOD ORDERABLES Lanette l Result [facility] [address] [place] [address] * (ABNORMAL) CBC without differential (12/19/2024 6:02 AM CDT) WBC 4.56 3.80 - 9.90 K/cumm Hgb 12.9(L) 13.0 - 17.5 g/dL [facility] Hct 39.2 38.9 - 50.3 % [facility] Plt 125(L) 150 - 400 K/cumm [facility] MPV 11.1 9.1 - 12.3 fL [facility] RBC 3.96(L) 4.30 - 5.80 M/cumm [facility] MCV 99.0(H) 81.3 - 96.4 fL [facility] MCH 32.6 27.1 - 33.3 pg [facility] MCHC 32.9 32.3 - 35.7 g/dL [facility] RDW CV 12.5 11.1 - 14.9 % [facility] RDW SD 45.5 35.7 - 48.1 fL [facility] NRBC abs 0.00 0.00 - 0.01 K/cumm [facility] Blood 12/19/2024 6:02 AM CDT 12/19/2024 6:10 AM CDT Meghana Chance MD LAB BLOOD ORDERABLES Lanette [email or web address] Result Performing Organization Address City/[facility]/ZIP Co de Phone Number [facility] [address] [place] [address] * Phosphorus (12/19/2024 6:02 AM CDT) Pathologist [facility] Phosphorus, pl 3.6 2.3 - 4.5 mg/dL Blood 12/19/2024 6:02 AM CDT 12/19/2024 6:10 AM CDT Meghana Chance MD LAB BLOOD ORDERABLES Lanette l Result Performing Organization Address City/[facility]/ZIP Co de Phone Number [facility] [address] [address] [place] [address] * Magnesium (12/19/2024 6:02 AM CDT) Pathologist [facility] Magnesium 1.8 1.4 - 2.5 mg/dL Blood 12/19/2024 6:02 AM CDT 12/19/2024 6:10 AM CDT Meghana Chance MD LAB BLOOD ORDERABLES Lanette l Result Performing Organization Address [facility] de Phone Number [facility] [address] [address] [place] [address] * (ABNORMAL) Basic metabolic panel (12/19/2024 6:02 AM CDT) Pathologist [facility] Sodium 135 135 - 145 mmol/L Potassium, pl 3.1(L) 3.3 - 4.9 mmol/L [facility] Chloride 101 97 - 110 mmol/L [facility] CO2 24 22 - 32 mmol/L [facility] Anion gap 10 2 - 15 mmol/L [facility] BUN 4(L) 6 - 25 mg/dL [facility] Creatinine 0.64(L) 0.80 - 1.30 mg/dL [facility] Glucose 101 70 - 199 mg/dL [facility] Comment: Interpretive Data Fasting glucose [...] Calcium 9.1 8.5 - 10.3 mg/dL [facility] Blood 12/19/2024 6:02 AM CDT 12/19/2024 6:10 AM CDT us Meghana Chance MD LAB BLOOD ORDERABLES Lanette l Result Performing Organization Address City/[facility] Co de Phone Number ETHAN [address] [address] Department [employer] [address] * POCT glucose (12/19/2024 5:01 AM CDT) Glucose, POC 117 70 - 199 mg/dL POC Performer [id number] [facility] Blood 12/19/2024 5:01 AM CDT 12/19/2024 5:01 AM CDT us John Barone MD LAB POCT ORDERABLES - DEVICE Fi nal Result Performing Organization Address [facility] Co de Phone Number ETHAN STAHL [address] [address] [facility] [employer] [place], [place] [id number] * POCT glucose (12/19/2024 12:35 AM CDT) Glucose, POC 173 70 - 199 mg/dL POC Performer [id number] [facility] Blood 12/19/2024 12:3 5 AM CDT 12/19/2024 12:35 AM CDT us John Barone MD LAB POCT ORDERABLES - DEVICE Fi nal Result Performing Organization Address [facility] Co de Phone Number ETHAN STAHL [address] [address] [facility] [employer] [address] * POCT glucose (12/18/2024 9:42 PM CDT) Glucose, POC 107 70 - 199 mg/dL POC Performer [id number] ETHAN STAHL Blood 12/18/2024 9:42 PM CDT 12/18/2024 9:42 PM CDT John Barone MD LAB POCT ORDERABLES - DEVICE Fi nal Result Performing Organization Address [facility] Co de Phone Number ETHAN STAHL [address] [address] [place] [address] * Critical Care (12/18/2024 6:54 AM CDT) [...] plan with the patient's team and other medical/decorating consultant staff. This time was in addition to and separate from care provided by other practitioners on this day of service. Meghana Chance MD IN CLINIC/BEDSIDE ORDERAB LES Final Result * (ABNORMAL) Calcium, ionized, whole blood (12/18/2024 6:46 AM CDT) Pathologist [facility] Ca, ionized, bld 4.14(L) 4.50 - 5.10 mg/dL Blood 12/18/2024 6:46 AM CDT 12/18/2024 7:03 AM CDT Meghana Chance MD LAB BLOOD ORDERABLES Lanette l Result Performing Organization Address City/[facility]/ZIP Co de Phone Number ALFREDOAYDE [address] [address] [place] [address] * eGFR (12/18/2024 6:46 AM CDT) eGFR [...] LAB BLOOD ORDERABLES Lanette bartholomew Result ETHAN [address] [facility] Department [place] [address] * Protime-INR (12/18/2024 6:46 AM [...] ORDERABLES Lanette l Result Performing Organization Address City/[facility]/ZIP Co de Phone Number ETHAN STAHL [address] [address] [facility] [employer] [place], [place] [id number] * (ABNORMAL) CBC without differential (12/18/2024 6:46 AM CDT) WBC 5.46 3.80 - 9.90 K/cumm Hgb 13.8 13.0 - 17.5 g/dL [facility] Hct 40.7 38.9 - 50.3 % [facility] Plt 145(L) 150 - 400 K/cumm [facility] MPV 10.8 9.1 - 12.[address] [facility] RBC 4.15(L) 4.30 - 5.80 M/cumm [facility] MCV 98.1(H) 81.3 - 96.[address] [facility] MCH 33.3 27.1 - 33.3 pg [facility] MCHC 33.9 32.3 - 35.7 g/dL [facility] CH RDW CV 12.8 11.1 - 14.9 % [facility] CH RDW SD 45.6 35.7 - 48.[address] [facility] NRBC abs 0.00 0.00 - 0.01 K/cumm [facility] Blood 12/18/2024 6:46 AM CDT 12/18/2024 7:03 AM CDT Meghana Chance MD LAB BLOOD ORDERABLES Lanette l Result ETHAN STAHL [address] Pack Department [place] [address] * Phosphorus (12/18/2024 6:46 AM CDT) Phosphorus, pl 2.6 2.3 - 4.5 mg/dL Blood 12/18/2024 6:46 AM CDT 12/18/2024 7:03 AM CDT Meghana Chance MD LAB BLOOD ORDERABLES Lanette l Result ETHAN STAHL [address] Pack [place] [address] * Magnesium (12/18/2024 6:46 AM CDT) Magnesium 2.4 1.4 - 2.5 mg/dL Blood 12/18/2024 6:46 AM CDT 12/18/2024 7:03 AM CDT Meghana Chance MD LAB BLOOD ORDERABLES Lanette l Result Performing Organization Address [facility] Co de Phone Number ETHAN STAHL [address] Pack Department [employer] [address] * (ABNORMAL) Basic metabolic panel (12/18/2024 6:46 AM CDT) Sodium 136 135 - 145 mmol/L Potassium, pl 3.4 3.3 - 4.9 mmol/L [facility] Chloride 96(L) 97 - 110 mmol/L [facility] CO2 26 22 - 32 mmol/L [facility] Anion gap 14 2 - 15 mmol/L [facility] BUN 4(L) 6 - 25 mg/dL [facility] Creatinine 0.58(L) 0.80 - 1.30 mg/dL [facility] Comment:Icteric sample, test results may be affected. Glucose 89 70 - 199 mg/dL [facility] Comment: Interpretive Data Fasting glucose [...] 2022. Calcium 8.8 8.5 - 10.3 mg/dL [facility] Blood 12/18/2024 6:46 AM CDT 12/18/2024 7:03 AM CDT Meghana Chance MD LAB BLOOD ORDERABLES Lanette bartholomew Result ETHAN STAHL [address] [address] Department [place] [address] * Critical Care (12/17/2024 10:03 PM CDT) [...] plan with the patient's team and other medical/decorating consultant staff. This time was in addition to and separate from care provided by other practitioners on this day of service. Derian Hinds NP IN CLINIC/BEDSIDE ORDERABL ES [...] F inal Result Performing Organization Address [facility] Co de Phone Number ETHAN STAHL [address] [address] Department [employer] [address] * Sepsis Lactate w/ Reflex (12/17/2024 5:29 PM CDT) Sepsis Lactate 1.8 0.7 - 2.0 mmol/L Blood 12/17/2024 5:29 PM CDT 12/17/2024 5:59 PM CDT Jered Titus DO LAB BLOOD ORDERABLES Final Res ult Performing Organization Address [facility] de Phone Number ALFREDOAYDE [address] [address] Department [place] [address] * (ABNORMAL) Calcium, ionized, whole blood (12/17/2024 5:29 PM CDT) Pathologist [facility] Ca, ionized, bld 3.99(L) 4.50 - 5.10 mg/dL Blood 12/17/2024 5:29 PM CDT 12/17/2024 5:59 PM CDT Meghana Chance MD LAB BLOOD ORDERABLES Lanette l Result Performing Organization Address [facility] Co de Phone Number ALFREDOAYDE [address] [address] [place] [address] * eGFR (12/17/2024 5:29 PM CDT) eGFR [...] ORDERABLES Lanette l Result Performing Organization Address City/[facility] Co de Phone Number ETHAN FAVIO [address] [address] Department of [employer] [place], [place] [id number] * (ABNORMAL) Phosphorus (12/17/2024 5:29 PM CDT) Phosphorus, pl 2.1(L) 2.3 - 4.5 mg/dL Blood 12/17/2024 5:29 PM CDT 12/17/2024 5:59 PM CDT Meghana Chance MD LAB BLOOD ORDERABLES Lanette l Result Performing Organization Address [facility] Co de Phone Number ETHAN FAVIO [address] [address] Department [place] [employer] [place] [address] * (ABNORMAL) Magnesium (12/17/2024 5:29 PM CDT) Magnesium 1.1(L) 1.4 - 2.5 mg/dL Blood 12/17/2024 5:29 PM CDT 12/17/2024 5:59 PM CDT Meghana Chance MD LAB BLOOD ORDERABLES Lanette l Result Performing Organization Address City/[facility] Co de Phone Number ETHAN STAHL [address] [address] Department [place] [address] * (ABNORMAL) Basic metabolic panel (12/17/2024 5:29 PM CDT) Sodium 138 135 - 145 mmol/L Potassium, pl 3.4 3.3 - 4.9 mmol/L [facility] Chloride 97 97 - 110 mmol/L [facility] CH CO2 24 22 - 32 mmol/L [facility] Anion gap 17(H) 2 - 15 mmol/L [facility] BUN 6 6 - 25 mg/dL [facility] Creatinine 0.50(L) 0.80 - 1.30 mg/dL [facility] Glucose 90 70 - 199 mg/dL [facility] Comment: Interpretive Data Fasting glucose [...] 2022. Calcium 8.8 8.5 - 10.3 mg/dL [facility] Blood 12/17/2024 5:29 PM CDT 12/17/2024 5:59 PM CDT Meghana Chance MD LAB BLOOD ORDERABLES Lanette bartholomew Result ETHAN STAHL [address] [address] Department [place] [address] * ECG 12 lead (12/17/2024 4:45 PM CDT) 12/17/2024 4:45 PM CDT Narrative [facility] - 12/17/2024 6:24 PM CDT Vent Rate: 119 bpm RR Interval: 503 msec RI Interval: 149 msec QRS Duration: 81 msec QT Interval: 310 msec QTC Interval: 381 msec P-R-T [place]: 56 - 38 - 44 degrees IMPRESSION: SINUS TACHYCARDIA ABNORMAL RHYTHM ECG Electronically Signed By: Dr. Adriana Hernandez [facility] Meghana Chance MD ECG ORDERABLES Final Res ult [facility] * POCT glucose (12/17/2024 3:36 PM CDT) [facility] Signature Glucose, POC 98 70 - 199 mg/dL POC Performer [id number] ETHAN STAHL Blood 12/17/2024 3:36 PM CDT 12/17/2024 3:36 PM CDT Meghana Chance MD LAB POCT ORDERABLES - DEV ICE Final Result Performing Organization Address City/[facility]/ZIP Co de Phone Number ALFREDOAYDE [address] [address] Department [place] [address] * Critical Care (12/17/2024 3:34 PM CDT) [...] plan with the ICU team and other medical/decorating consultant staff, making frequent assessments and decisions [...] Lactate w/ Reflex (12/17/2024 2:46 PM CDT) [facility] Sepsis Lactate 5.7(C) 0.7 - 2.0 mmol/L Comment:Critical result call ed to and read back by Sarah Grimes (RN_) on 12/17/2024 15:28:04 CDT_ to Cathi Dixon . Blood 12/17/2024 2:46 PM CDT 12/17/2024 3:04 PM CDT Jered Titus DO LAB BLOOD ORDERABLES Final Res ult Performing Organization Address [facility] Co de Phone Number ETHAN STAHL [address] [address] [place] [address] * Troponin T high-sensitivity 4-hour (12/17/2024 1:20 PM CDT) [facility] Trop T hs 10 <=22 ng/L Comment: Interpretive Data For further hscTnT resources including the diagnostic algorithm and an aid in interpretation, copy and paste this link: https://nrl.testcatalog.org/show/hsTrop Current Interpretive Data last revised 2020. Trop T hs delta 1 ng/L [facility] Trop T hs interp Insignificant [facility] Blood 12/17/2024 1:20 PM CDT 12/17/2024 1:29 PM CDT Christina Shepard MD LAB BLOOD ORDERABLES F inal Result Performing Organization Address City/[facility]/ZIP Co de Phone Number ETHAN FAVIO [address] [address] [place] [address] * (ABNORMAL) Beta-hydroxybutyrate (12/17/2024 1:20 PM CDT) Beta-Hydroxybut yrate 0.8(H) <=0.5 mmol/L Blood 12/17/2024 1:20 PM CDT 12/17/2024 1:48 PM CDT Jered Titus DO LAB BLOOD ORDERABLES Final Res ult Performing Organization Address [facility] Co de Phone Number [facility] [address] Pack [place] [address] * Troponin T high-sensitivity 2-hour (12/17/2024 11:42 AM CDT) Trop T hs 10 <=22 ng/L Comment: Interpretive Data For further hscTnT resources including the diagnostic algorithm and an aid in interpretation, copy and paste this link: https://nrl.testcatalog.org/show/hsTrop Current Interpretive Data last revised 2020. Trop T hs delta 1 ng/L [facility] Trop T hs interp Insignificant [facility] Blood 12/17/2024 11:4 2 AM CDT 12/17/2024 12:04 PM CDT Christina Shepard MD LAB BLOOD ORDERABLES F inal Result Performing Organization Address [facility] de Phone Number ETHAN [address] [address] Department [place] [address] * (ABNORMAL) Sepsis Lactate w/ Reflex (12/17/2024 11:42 AM CDT) Sepsis Lactate 6.9(C) 0.7 - 2.0 mmol/L Comment:Alert Lactate called to and read back by Kenzie Cordero at 12/17/2024 12:09:20 CDT by Kallie Sabillon. Blood 12/17/2024 11:4 2 AM CDT 12/17/2024 12:03 PM CDT Jered Titus DO LAB BLOOD ORDERABLES Final Res ult Performing Organization Address [facility] [place] [address] [address] Department [place] [address] * CT Head WO Contrast (12/17/2024 11:36 [...] ORDERABLES Edited Re sult - Final ETHAN [address] [address] Department [place] [address] * eGFR (12/17/2024 9:41 AM CDT) eGFR [...] DO LAB BLOOD ORDERABLES Final Res ult [facility] [address] [address] Department [place] [address] * (ABNORMAL) Differential, auto (12/17/2024 9:41 AM CDT) Neutrophil abs 9.85(H) 1.50 - 6.50 K/cumm Imm gran abs 0.06 0.00 - 0.10 K/cumm [facility] Lymphocyte abs 1.60 0.80 - 3.30 K/cumm [facility] Monocyte abs 0.73 0.20 - 0.80 K/cumm [facility] Eosinophil abs 0.05 0.00 - 0.50 K/cumm [facility] Basophil abs 0.09 0.00 - 0.10 K/cumm [facility] Neutrophil pct 79.6 % [facility] Comment: Interpretive Data Percent cell [...] on 2017. Basophil pct 0.7 % ETHAN Comment: Interpretive Data Percent cell count reference ranges are not reported, since discordance with absolute values may lead to misinterpretation of CBC data. Current Interpretive Data was last revised on 2017. Blood 12/17/2024 9:41 AM CDT 12/17/2024 9:48 AM CDT us Jered Titus DO LAB BLOOD ORDERABLES Final Res ult ETHAN [address] [address] Department [place] [address] * Pro B-type natriuretic peptide [...] DO LAB BLOOD ORDERABLES Final Res ult [facility] [address] [address] Department [place] [address] * (ABNORMAL) CBC with auto differential (12/17/2024 9:41 AM CDT) WBC 12.38(H) 3.80 - 9.90 K/cumm Hgb 14.4 13.0 - 17.5 g/dL [facility] Hct 43.7 38.9 - 50.3 % [facility] Plt 175 150 - 400 K/cumm [facility] Comment:No clot detected in sample. MPV 10.9 9.1 - 12.[address] [facility] RBC 4.42 4.30 - 5.80 M/cumm [facility] MCV 98.9(H) 81.3 - 96.[address] [facility] MCH 32.6 27.1 - 33.[address] [facility] MCHC 33.0 32.3 - 35.7 g/dL [facility] RDW CV 12.9 11.1 - 14.9 % [facility] RDW SD 46.7 35.7 - 48.[address] [facility] NRBC abs 0.00 0.00 - 0.01 K/cumm [facility] Morphologic Screen Results confirmed by manual morphology review. [facility] Blood 12/17/2024 9:41 AM CDT 12/17/2024 9:48 AM CDT Jered Titus DO LAB BLOOD ORDERABLES Final Res ult Performing Organization Address [facility] de Phone Number ALFREDOAYDE STAHL [address] [address] [facility] [place] [address] * Magnesium (12/17/2024 9:41 AM CDT) Magnesium 1.5 1.4 - 2.5 mg/dL Blood 12/17/2024 9:41 AM CDT 12/17/2024 11:25 AM CDT Jered Titus DO LAB BLOOD ORDERABLES Final Res ult Performing Organization Address [facility] de Phone Number ALFREDOAYDE STAHL [address] [address] [facility] [place] [address] * (ABNORMAL) Ethanol (12/17/2024 9:41 AM CDT) Ethanol 173(H) <=10 mg/dL Comment: Interpretive Data Legal limit of intoxication > or = 80 mg/dL Levels > or = 400 mg/dL are potentially TOXIC. Current interpretive data was last revised on 2018. Blood 12/17/2024 9:41 AM CDT 12/17/2024 11:25 AM CDT Jered Titus DO LAB BLOOD ORDERABLES Final Res ult Performing Organization Address [facility] de Phone Number ETHAN STAHL [address] [address] [facility] [employer] [place], [place] [id number] * (ABNORMAL) Comprehensive metabolic panel (12/17/2024 9:41 [...] DO LAB BLOOD ORDERABLES Final Res ult [facility] [address] [address] Department [place] [address] * ECG 12 lead (12/17/2024 8:50 AM CDT) 12/17/2024 8:50 AM CDT Narrative [facility] - 12/17/2024 6:31 PM CDT Vent Rate: 145 bpm RR Interval: 413 msec RI Interval: 131 msec QRS Duration: 86 msec QT Interval: 290 msec QTC Interval: 373 msec P-R-T [place]: 38 - -69 - 46 degrees IMPRESSION: SINUS TACHYCARDIA, POSSIBLE ATRIAL FLUTTER LOW QRS VOLTAGE IN PRECORDIAL LEADS [QRS DEFLECTION < 1.0 mV IN CHEST LEADS] PATTERN CONSISTENT WITH PULMONARY DISEASE Poor R-wave progression Electronically Signed By: Dr. Adriana Hernandez [facility] Christina Shepard MD ECG ORDERABLES Final Result [facility] from Last 3 Months Insurance [place] [facility] PLAN [facility] OFFICE [facility] PLAN [facility] Advance Directives For more information, please contact: [phone] * Full Code (Latest Code Status on [...] 12:20 PM 10/13/2024 5:59 PM Care Teams Twisthand Relationship Specialty Start Date End Date Weston Mantilla DO PCP - General Family Medicine 09/03/23 Kimberli Collins DPM [address] [place] [id number] Consulting Physician Foot and Ankle Surg 09/14/23
--- OUTSIDE RECORDS SUMMARY | 2025-02-11 07:19 | XMS_ITS | Continuity of Care Document ---
Author Organization [facility] Address [address] [place] [address] [place] [address] Phone Care Team Providers Care Armor Officer Name Role Phone Cayetano Hardy MD Unavailable [...] Diagnoses Date Provider Providers Copied on Encounter [facility], [address], [place], [place], [id number], [place] tel:[phone] [facility] No Information [address], [place], [place], [id number] , [place]. tel:[phone] PREV VISIT, NEW, AGE 40-64 [facility], [address], [place], [place], [id number], [place] tel:[phone] [facility] Family Medicine PHysical (chief complaint) Encounter for general adult medical exam w abnormal findingsEssential (primary) hypertensionHyponat remiaLeukocytosisGe neralized Anxiety DisorderChest pain 9 [address], [place], [place], [id number] , [place]. tel:[phone] Family History Family Member Type Diagnosis Age [...] denies any crying spells. Pt states that [place] doctor does not want to give him [...]
[2025-02-11 07:28] LABS: Hematocrit 50.6 % (42.0-52.0); Hemoglobin 17.0 g/dL (14.0-18.0); Immature Granulocyte Percent A 0.3 % (0-0.5); Lymphocytes Absolute Auto 2.49 K/mm3 (0.9-3.2); Mean Corpuscular HGB Conc 33.6 g/dl (32-36); Mean Corpuscular Hemoglobin 33.1 pg (26-34); Mean Corpuscular Volume 98.4 fl (80-100); Nucleated Red Blood Cells Absolute Auto 0.000 K/mm3 (0.0-0.012); Nucleated Red Blood Cells Perc 0.0 % (0.0-0.2); Platelet Count Result 315 k/mm3 (150-375); Red Blood Count 5.14 M/mm3 (4.6-6.20); White Blood Count 7.4 K/mm3 (4.5-10.0)
[2025-02-11 07:39] LABS: Alanine Aminotransferase 46 U/L (6-50); Albumin Level 4.6 g/dL (3.5-5.1); Alkaline Phosphatase 93 U/L (38-126); Anion Gap 13 mmol/L (4-12); Aspartate Amino Transferase 50 U/L (17-59); Bilirubin,Total 0.4 mg/dL (0.2-1.3); Blood Urea Nitrogen 7 mg/dL (9-20); Calcium 8.7 mg/dL (8.4-10.2); Carbon Dioxide 30 mmol/L (22-30); Chloride 106 mmol/L (98-107); Estimated CRCL calculation 112 ml/min; Estimated Glomerular Filt Rate > 60; Glucose 104 mg/dL (65-110); Potassium 3.3 mmol/L (3.4-5.0); Sodium 149 mmol/L (137-145); Total Protein 7.8 g/dL (6.3-8.2)
[2025-02-11 07:51] LABS: Acetaminophen < 10 ug/mL (10-30); Salicylate < 1.0 mg/dL (2-20)
[2025-02-11 08:05] LABS: Influenza A QL RT-PCR Negative (Negative); Influenza B QL RT-PCR Negative (Negative); RSV RNA, RT-PCR Negative (Negative); SARS-CoV-2 RNA PCR Negative (Negative)
[2025-02-11 08:12] LABS: Free T4 Free Thyroxine 1.03 ng/dL (0.78-2.19)
[2025-02-11 08:27] LABS: Thyroid Stimulating Hormone Reflex 1.690 uIU/mL (0.465-4.68)
[2025-02-11 09:10] LABS: Add Urine Microscopic? YES; Appearance Urine Clear (Clear); Glucose Urine UA Negative (Negative); Leukocyte Esterase Ur Negative LEU/UL (Negative); Nitrate Urine Negative (Negative); Specific Grav Ur 1.015 (1.001-1.035)
--- NOTE | 2025-02-11 09:10 | PC.NURSE ---
Meal tray ordered for pt.
[2025-02-11 10:00] LABS: Cannabinoid Screen Urine Positive (Negative)
--- NOTE | 2025-02-11 11:02 | PC.NURSE ---
0900 Pt requesting medication for his shakes. EDP Dr. Matos aware, no new orders at this time.
--- NOTE | 2025-02-11 11:05 | PC.NURSE ---
Bedside report given by QIANA Franks to this RN. All questions answered. Pt. lying in bed alert, A&Ox4.
--- NOTE | 2025-02-11 11:50 | PC.NURSE ---
Pt. able to ambulate to bathroom independently and use the toilet.
--- NOTE | 2025-02-11 12:10 | PC.NURSE ---
Pt. requesting an update on plan of care. Pt. is A&Ox4 and states he has a ride home - Mom will pick him up. Dr. Matos notified. Per Dr. Matos, plan is to d/c pt. Pt. is ok to notify his Mom that he will need a ride home. Pt. updated by this RN and verbalized understanding.
--- NOTE | 2025-02-11 13:00 | PC.NURSE ---
Per Dr. Matos, pt. ok to d/c when Mom has arrived at bedside.
--- NOTE | 2025-02-11 13:10 | PC.NURSE ---
Mom at bedside, states the plan is [facility]. Pt. d/c to home with Mom.
== END 2025-02-11 13:20 | disposition home or self-care (01) ==
PROVIDERS: Student in an Organized Health Care Education/Training Program; Emergency Provider Emergency Medicine
DX: F10.229 Alcohol dependence with intoxication, unspecified (principal); Y90.8 Blood alcohol level of 240 mg/100 ml or more; Z11.52 Encounter for screening for COVID-19; I10 Essential (primary) hypertension; G47.33 Obstructive sleep apnea (adult) (pediatric); F43.10 Post-traumatic stress disorder, unspecified; F32.A Depression, unspecified; F41.9 Anxiety disorder, unspecified; F17.210 Nicotine dependence, cigarettes, uncomplicated; Z79.899 Other long term (current) drug therapy
CPT/HCPCS: 36415; 80053; 80143; 80179; 80307; 81001; 82077; 84439; 84443; 85025; 87637; 99283

== ENCOUNTER 2025-08-12 11:16 | Emergency (ER) | payer BC, SELFPAY ==
--- OUTSIDE RECORDS SUMMARY | 2021-07-25 02:30 | XMS_ITS | Continuity of Care Document ---
Author Organization [facility] Address [address] [place] [address] Phone Care Team Providers Care Commission Agent Livestock Name Role Phone Unavailable Unavailable Unavailable Procedures Procedure Date Caries Risk Assess & Doc High Risk Jul- Comprehensive Oral Evaluation-New/Est Pt Intra-Oral - Complete Series Of Radiogra phic Images Oral/facial 2D photo images Dental Panoramic Radiographic Image Limit Oral Evaluation- problem focused N Advance Directives Directive Yes / No Effective Date File Name No Information Encounters Encounter Description Practice Location Reason(s) For Visit Diagnoses Date Provider Providers Copied on Encounter [facility] , [address], [place], [place], [id number], tel:[phone] [facility] Encounter for dental exam and cleaning w abnormal findings No Information Referring Provider: Keyshawn Solis, [address], [place], [address]. tel:[phone] [facility] , [address], [place], [place], [id number], tel:[phone] [facility] Encounter for dental exam and cleaning w abnormal findings No Information Family History Family Member Type Diagnosis Age At Onset No Information Payers Payer name Insurance type Covered libertarian ID Authoradama ijeoma(s) G - [facility] [facility] 09 Social History Type Description Quantity Date Captured Comments Sex Male Smoking Status No Information Chief Complaint And Reason For Visit No Information Reason For Referral Reason For Referral No Information History Of Present Illness Encounter Date Complaint History Of Prese nt Illness No Information Functional Status Date Functional Assessmen t No Information Instructions Date Instruction Additional Infor mation No Information Assessments Type Assessment Date No Information Patient Care Teams Name Effective Dates (start - stop) Status Members No Information
--- OUTSIDE RECORDS SUMMARY | 2025-08-09 00:33 | XMS_ITS | Encounter Summary ---
Author Organization [facility] Healthcare Address [address] [place] [address] Care Team Providers Care Face Hardener Name Role Phone Weston Mantilla DO Primary Care Provide r Kimberli Collins DPM Unavailable [phone] Reason for Visit * Reason Comments Drug / Alcohol Assessment Pt arrives +[place], requesting help with detox. Pt is AOx3, unsteady gait. * Auth/Cert (Routine) Specialty Diagnoses / Procedures Referred By Contac t Referred To Contact Diagnoses Alcohol withdrawal syndrome without complication (HCC) Procedures na Referral ID Status Reason Start Date Expiration Date Visits Re quested Visits Authorized [id number] 1 1 Encounter Details Date Type Department Care Team (Latest Contact Info) Description 08/09/2025 12:33 AM RADIOLOGICAL ENGINEER - 08/11/2025 10:00 AM RADIOLOGICAL ENGINEER Hospital Encounter [facility] [address] [place] [address] Bethel Bailey MD [address] [place] [address] Taj Cavanaugh MD [address] [place] [address] [place] [address] [facility] [address] [place] [address] Alcohol withdrawal syndrome without complication (HCC) (Primary Dx); Tachycardia Discharge Disposition: Discharge to home or self care Social History Tobacco Use Types Packs/Day Years Used Date Smoking Tobacco: Former Cigarettes Smokeless Tobacco: Current Chew Alcohol Use Standard Drinks/Week Comments Yes 40 (1 standard drink = 0.6 oz pu re alcohol) vodka Social Connection and Isolation Panel Answer Date Recorded In a typical week, how many times do you talk on the phone with family, friends, or neighbors? More than three times a week 12/18/2024 How often do you get togethe r with friends or relatives? More than three times a week 12/18/2024 How often do you attend chur ch or spiritism services? Never 12/18/2024 Do you belong to any clubs o r organizations such as lutheran groups, unions, fraternal or athletic groups, or school groups? No 12/18/2024 How often do you attend meet ings of the clubs or organizations you belong to? Never 12/18/2024 Are you , , di vorced, , never , or living with a partner? 12/18/2024 Overall Financial Resource Strain (CARDIA) Answe r Date Recorded How hard is it for you to pa y for the very basics like food, housing, medical care, and heating? Not very hard 12/18/2024 PHQ-2 Answer Date Recorded PHQ-2 Total Score 0 07/16/2025 PRAPARE - Transportation Answer Date Re corded [...] any time in the past 12 m [facility], were you homeless or living in a [place] (including now)? No 12/18/2024 Social Connection and Isolation Panel Answer Date Recorded In a typical week, how many times do you talk on the phone with family, friends, or neighbors? More than three times a week 08/10/2025 How often do you get togethe r with friends or relatives? More than three times a week 08/10/2025 How often do you attend chur ch or spiritism services? More than 4 times per year 08/10/2025 Do you belong to any clubs o r organizations such as lutheran groups, unions, fraternal or athletic groups, or school groups? No 08/10/2025 How often do you attend meet ings of the clubs or organizations you belong to? Never 08/10/2025 Are you , , di vorced, , never , or living with a partner? 08/10/2025 AUDIT-C Answer Date Recorded Q1: How often do you have a drink containing alcohol? 4 or more times a week 04/23/2025 Q2: How many drinks containi ng alcohol do you have on a typical day when you are drinking? 10 or more Q3: How often do you have si x or more drinks on one occasion? Daily or almost daily 04/23/2025 Overall Financial Resource Strain (CARDIA) Answe r Date Recorded How hard is it for you to pa y for the very basics like food, housing, medical care, and heating? Not hard at all 08/10/2025 Hunger Vital Sign Answer Date Recorded Within the past 12 months, y ou worried that your food would run out before you got the money to buy more. Never true 08/10/20 25 Within the past 12 months, t he food you bought just didn't last and you didn't have money to get more. Never true 08/10/2025 PRAPARE - Transportation Answer Date Re corded In the past 12 months, has l ack of transportation kept you from medical appointments or from getting medications? No 07/14 In the past 12 months, has l ack of transportation kept you from meetings, work, or from getting things needed for daily living? No 08/10/2025 Housing Stability Vital Sign Answer Swapnil e Recorded In the last 12 months, was t here a time when you were not able to pay the mortgage or rent on time? No 08/10/2025 In the past 12 months, how m any times have you moved where you were living? 1 08/10/2025 At any time in the past 12 m [facility], were you homeless or living in a [place] (including now)? No 08/10/[address] [facility] Utilities Answer Date Recorded In the past 12 months has [employer], gas, oil, or water [employer] threatened to shut off services in your home? No 08/10/2025 Personal Safety Answer Date Recorded Have you ever been in or are you currently in a harmful physical or emotional relationship or is someone making you feel afraid or unsafe? Denies 08/09/2025 Sex and Gender Information Value Date Recorded Sex Assigned at Not on file Legal Sex Male 2:24 AM RADIOLOGICAL ENGINEER Gender Identity Not on file Sexual Orientation Not on file documented as of this encounter Last Filed Vital Signs Vital Sign Reading Time Taken Comments Blood Pressure 168/108 08/11/2025 7:43 AM RADIOLOGICAL ENGINEER rn notified Pulse 99 08/11/2025 7:43 AM RADIOLOGICAL ENGINEER Temperature 36.6 C (97.9 F) 08/11/2025 7:43 AM RADIOLOGICAL ENGINEER Respiratory Rate 18 08/11/2025 7:43 AM RADIOLOGICAL ENGINEER Oxygen Saturation 100% 08/11/2025 7:4 3 AM RADIOLOGICAL ENGINEER Inhaled Oxygen Concentration - - Weight 96.4 kg (212 lb 8.4 oz) 08/09/20 25 9:26 AM RADIOLOGICAL ENGINEER Height 177.8 cm (5' 10) 08/09/2025 9:2 6 AM RADIOLOGICAL ENGINEER Body Mass Index 30.49 08/09/2025 9:26 AM RADIOLOGICAL ENGINEER documented in this encounter Functional Status * Difference in Last Two Haroldo Scores Answer Date of Assessment Author 0 08/11/2025 8:00 AM RADIOLOGICAL ENGINEER Servando Grider RN * Titus Fall Risk Question Answer Date of Assessment Author History of Falling 0 08/11/2025 8:00 AM RADIOLOGICAL ENGINEER Ruby Grider RN Secondary Diagnosis 15 08/11/2025 8:00 AM CS T Ruby Grider RN Ambulatory Aids 0 08/11/2025 8:00 AM RADIOLOGICAL ENGINEER Ruby Tavarez RN Intravenous Therapy/Heparin/ Saline Lock 20 08/11/2025 8:00 AM RADIOLOGICAL ENGINEER Ruby Grider RN Gait/Transferring 0 08/11/2025 8:00 AM Ruby Negron RN Mental Status 0 08/11/2025 8:00 AM Ruby Negron RN Titus Fall Risk Score (Score >= 45 places fall precaution order) 35 08/11/2025 8:00 AM Trinidad Negron RN Prior Fall Event (Autopopula ilia from EMR) None found 08/11/2025 8:00 AM Ruby Negron RN * Haroldo Scale Question Answer Date of Assessment Author Sensory Perceptions 4 08/11/2025 8:00 AM CS Ruby Saleem RN Moisture 4 08/11/2025 8:00 AM Ruby Negron RN Activity 4 08/11/2025 8:00 AM Ruby Negron RN Mobility 4 08/11/2025 8:00 AM Ruby Negron RN Nutrition 3 08/11/2025 8:00 AM Ruby Negron RN Friction and Shear 3 08/11/2025 8:00 AM Ruby Negron RN Haroldo Scale Score 22 08/11/2025 8:00 AM Ruby Negron RN * BP Location Answer Date of Assessment Author Left arm 08/11/2025 7:43 AM Jada Wong * MAP (mmHg) Answer Date of Assessment Author 124 08/11/2025 7:43 AM Jada Wong * Vitals Question Answer Date of Assessment Author BP Method Automatic 08/11/2025 7:43 AM Dorie Felix * Fall Risk Interventions Question Answer Date of Assessment Author All Low Fall Interventions Applied Yes 08/11/2025 8:00 AM Ruby Negron RN All Moderate Fall Interventions Applied Yes 08/11/2025 8:00 AM Ruby Negron R N All High Fall Risk Interventions Applied Yes 08/11/2025 8:00 AM Ruby Negron R N Additional Interventions Applied Bed/chair alarm 08/11/2025 8:00 AM Ruby Negron RN * B.M.A.T. - Bedside Mobility Assessment Tool for Nurses Question Answer Date of Assessment Author Is patient able to participate in the BMAT? Yes 08/11/2025 8:00 AM Ruby Negron RN BMAT Level Level 4 - Green 08/11/2025 8:00 AM Ruby Canales RN Level 3 Equipment Use non-powered stand aid 08/11/2025 8:00 AM Ruby Negron RN * Non-Suicidal Self-Injurious Behavior Risk: Whenever possible, conduct screening in private to create a confidential environment. Question Answer Date of Assessment Author 1. Has the patient self-repo rted, presented with clinical signs of, or have a documented history of any of the following within the past 30 days? No 08/09/2025 9:53 AM Ruby Saleem RN * Encounter Related Suicide Attempt/Behavior: Whenever possible, conduct screening in private to create a confidential environment. Question Answer Date of Assessment Author Is the patient being treated today because it is known or suspected that they prepared, started, or tried to end their life? No 08/09/2025 12:32 AM Martha Rangel RN * [place] Suicide Severity Rating Scale (Recent Screener) Question Answer Date of Assessment Author 1. In the past month, have you wished you were or that you could go to sleep and not wake up? No 08/09/2025 12:32 AM Martha Rangel RN 2. In the past month, have you actually had any thoughts of killing yourself? No 08/09/2025 12:32 AM Martha Rangel RN 6. Have you ever done anything, started to do anything, or prepared to do anything to end your life? No 08/09/2025 12:32 AM Mary Rangel RN * Suicide Risk Level Answer Date of Assessment Author No risk level 08/09/2025 12:32 AM Martha Rangel RN * Self-Injurious Risk Level Answer Date of Assessment Author No risk level 08/09/2025 9:53 AM Servando Negron RN * Alcohol Withdrawal Question Answer Date of Assessment Author Alcohol Withdrawal BP Hierarchy 108 7:43 AM Dorie Wong Paloma Tremor 0 08/11/2025 7:43 AM Ruby Negron RN Sweating 0 08/11/2025 7:43 AM Ruby Negron RN Hallucinations 0 08/11/2025 7:43 AM Ruby Hester RN Orientation 0 08/11/2025 7:43 AM Ruby Negron RN Contact 0 08/11/2025 7:43 AM Ruby Negron RN Agitation 0 08/11/2025 7:43 AM Ruby Negron RN * Total Question Answer Date of Assessment Author Total 7 08/11/2025 7:43 AM RADIOLOGICAL ENGINEER Dorie Portillo * Pressure Injury Prevention Question Answer Date of Assessment Author Pressure Ulcer Prevention Interventions Keep skin clean and dry (Sensory Perception/Moisture ) 08/11/2025 8:00 AM Ruby Negron RN 2 Nurse Skin Assessment Geo/ Ruby 08/11/2025 8:00 AM Ruby Negron RN Special Mattress Low air loss 08/11/2025 8:00 AM Ruby Mohamud RN * Transdermal Patch Admission Assessment Question Answer Date of Assessment Author Transdermal Patch Assessment on Admission Not Present 08/09/2025 9:53 AM Ruby Negron RN * Fall Risk Assessment Tool - MEDFRAT Question Answer Date of Assessment Author Prior Fall Event (Autopopulated from EMR) None found 08/09/2025 12:32 AM Cathy Rangel RN Pt needs supervision/assistance with ambulation? (makes patient High risk) No 08/09/2025 12:32 AM Martha Rangel RN History of falling in last 3 months, including since admission 0 08/09/2025 12:32 AM Martha Rangel RN Confusion or disorientation 5 08/09/2025 12 :32 AM Martha Rangel RN Intoxicated or sedated 3 08/09/2025 12:32 A M Martha Rangel RN Impaired gait 1 08/09/2025 12:32 AM Martha Patricia RN Mobility assist device used 0 08/09/2025 12 :32 AM Martha Rangel RN Altered elimination 0 08/09/2025 12:32 AM Martha Brennan RN Fall risk score: (1-2 low risk), (3-4 moderate risk), (5 or more high risk) 9 08/09/2025 12:32 AM RADIOLOGICAL ENGINEER Martha Peters RN * Fall Interventions Question Answer Date of Assessment Author Interventions HIGH RISK patient/family education;bed low/locked 08/09/2025 4:45 AM RADIOLOGICAL ENGINEER Indu Sam, QIANA * Integumentary Question Answer Date of Assessment Author Integumentary (WDL) WDL 08/11/2025 8:00 AM Ruby Burks RN * Psychosocial Question Answer Date of Assessment Author Affect Anxious/Worried 08/11/2025 8:00 AM Ruby Canales RN Mood Guarded 08/11/2025 8:00 AM Ruby Negron RN * Intake Question Answer Date of Assessment Author Percent Meal Eaten (%) 100 08/11/2025 9:05 AM Dorie Wong Feeding Level of Assistance Able to feed self 08/11/2025 9:05 AM Dorie Wong Appetite Good 08/11/2025 9:05 AM Dorie Newman Percent Snack Eaten (%) 100 08/11/2025 9:05 A M Dorie Wong * BP Location Answer Date of Assessment Author Left arm 08/11/2025 7:43 AM Jada Wong * Vitals Question Answer Date of Assessment Author BP Method Automatic 08/11/2025 7:43 AM Dorie Newman * Fall Risk Interventions Question Answer Date of Assessment Author All Low Fall Interventions Applied Yes 08/11/2025 8:00 AM Ruby Negron RN All Moderate Fall Interventions Applied Yes 08/11/2025 8:00 AM Ruby Negron R N All High Fall Risk Interventions Applied Yes 08/11/2025 8:00 AM Ruby Negron R N Additional Interventions Applied Bed/chair alarm 08/11/2025 8:00 AM Ruby Negron RN * ADL Screening Question Answer Date of Assessment Author Patient's Vision Adequate to Safely Complete Daily Activities Yes 08/09/2025 9:53 AM Ruby Negron RN Patient's Judgement Adequate to Safely Complete Daily Activities Yes 08/09/2025 9:53 AM Ruby Negron RN Patient's Memory Adequate to Safely Complete Daily Activities Yes 08/09/2025 9:53 AM Ruby Negron RN Patient Able to Express Needs/Desires Yes 08/09/2025 9:53 AM Ruby Negron RN Dressing Independent 08/09/2025 9:53 AM Ruby Negron RN Grooming Independent 08/09/2025 9:53 AM Ruby Negron RN Feeding Independent 08/09/2025 9:53 AM Ruby Negron RN Bathing Independent 08/09/2025 9:53 AM Ruby Negron RN Toileting Independent 08/09/2025 9:53 AM Ruby Negron RN In/Out Bed Independent 08/09/2025 9:53 AM Ruby Negron RN Walks in Home Independent 08/09/2025 9:53 AM Ruby Negron RN Weakness of Legs None 08/09/2025 9:53 AM RADIOLOGICAL ENGINEER Ruby Crawley RN Weakness of Arms/Hands None 08/09/2025 9:53 AM Ruby Negron RN Hearing - Right Ear Functional 08/09/2025 9:53 AM CS T Ruby Grider RN Hearing - Left Ear Functional 08/09/2025 9:53 AM Ruby Negron RN Dominant hand? Right 08/09/2025 9:53 AM Ruby Hester RN Decline in ADLs in last 2 weeks? No 08/09/20 9:53 AM Ruby Negron RN * Therapy Consults Question Answer Date of Assessment Author PT Evaluation Needed 1 08/09/2025 9:53 AM Ruby Mendez RN OT Evaluation Needed 1 08/09/2025 9:53 AM Ruby Mendez RN ALLERGIST/MD Evaluation Needed 2 08/09/2025 9:53 AM Ruby Negron RN * Assistive Devices Question Answer Date of Assessment Author Assistive Devices/DME None 08/09/2025 9:53 AM Ruby Negron RN * RN Oversight of Sitter Question Answer Date of Assessment Author RN Safety Check No unsafe behaviors observed, safe environment maintained 08/09/2025 7:00 AM Shantel Ricks, QIANA Sitter Continued 08/09/2025 7:00 AM Shantel Au RN Sitter Type Medical/Safety 08/09/2025 7:00 AM Shantel Tamayo, QIANA * Speech/Swallow Screening Question Answer Date of Assessment Author Currently, does patient have difficulty swallowing; coughing/choking while swallowing, or feels like food is sticking No 08/09/2025 9:53 AM Ruby Negron R N In the past two weeks has the patient had changes in speaking or ability to comprehend conversation No 08/09/2025 9:53 AM Ruby Negron RN Currently, does patient require thickened liquids or dysphagia diet No 08/09/2025 9:53 AM Ruby Negron RN Patient is in need of ALLERGIST/MD Order: No ALLERGIST/MD order needed from this assessment 08/09/2025 9:53 AM Ruby Negron RN * Safe Environment Question Answer Date of Assessment Author Bed In Lowest Position Yes 08/10/2025 12:12 P M Dorie Wong Bed Wheels Locked Yes 08/10/2025 12:12 PM Dorie Wong * Hygiene Question Answer Date of Assessment Author Hygiene Skin cleanser 08/11/2025 7:00 AM Ruby Negron RN Hygiene Level of Assistance Independent 08/11/2025 9:00 AM Ruby Negron RN Toileting: Assistance with Up to bathroom toilet 08/11/2025 7:00 AM Ruby Negron RN Toileting: Level of assistance Independent 08/11/2025 7:00 AM Ruby Negron RN Bath Bathed/showered with chlorhexidine (CHG) 08/11/2025 7:00 AM Ruby Negron RN documented as of this encounter Mental Status * Neurological Question Answer Entry Date Author Level of Consciousness Alert;Awake 8:00 AM Ruby Negron RN Orientation Oriented X4 (person, place, time, situation) 08/11/2025 8:00 AM Ruby Negron RN Neuro (WDL) X 08/11/2025 8:00 AM Ruby Negron RN Other Neuro Symptoms Fatigue 08/11/2025 8:00 AM Ruby Negron RN documented in this encounter Discharge Instructions * Discharge Instructions* Luz Elena Monaco - 08/10/2025 7:38 PM RADIOLOGICAL ENGINEER MENTAL HEALTH CRISIS/URGENT CARE SERVICES National Suicide Prevention Hotline (Available by calling or texting 309 to speak with a counselor for support or additional resources) Behavioral Health Response [phone] or [phone] (Crisis hotline or additional resources) [facility] Behavioral Health [phone] (Crisis hotline) [facility] Behavioral Health Urgent Care [phone] ([facility]) (walk in urgent care for mental health) [address], [address], [place] [address] Sunday - Sunday 9am- 7 pm [facility] Behavioral Health Urgent Care [phone] ([facility]) [address] [facility] [address] Sunday- Sunday 9 am- 7 pm [facility] Walk - In Clinic [phone] [address] [place] [address] [facility] [address] [place] [address] OPEN 05/03 (Can stay at the Crisis Center for up to 23 hours and receive crisis assessments and referrals and links to services including tele health . Also clothes, shower and other ERE services) Places for People - Walk in services for adults. First come First Serve M-F 9am- 11am and 1pm-3pm [address] [facility] [address] for info call [phone] [facility] OUTREACH SERVICES TO ASSIST IN LOCATING OUTPATIENT CARE FOR MENTAL HEALTH Behavioral Health Response [phone] (Contact and request a mobile outreach to establish community mental health care for [facility]) Disaster Hotline (Contact to request assistance in establishing community mental health care in [facility]) [facility] FOR UNINSURED OR MEDICAID [facility] Behavioral Health [phone] ([facility], [facility], [facility], [facility], and [facility]) [facility] [phone] ([facility]) [facility] [phone] ([facility]) [facility] [phone] ([facility]) [place] [phone] ([facility]) SUBSTANCE USE TREATMENT [facility] [phone] (opioid response project for [facility] residents)- contact to get connected to treatment services [facility] (drug and alcohol treatment) [facility] [phone] (inpatient and outpatient rehabilitation services) [place] ([place] option for treatment) [facility] ([place] option for treatment) [facility] Hand Off- [phone]- ([place] option for assistance in locating treatment) [facility] - [phone] ([place] option for treatment) [facility]: Crisis Access Point The Behavioral [facility] Crisis Centers at [facility] provides support for individuals in crisis 24 hours a day, 7 days per week, 365 days per year. Our facility evaluates all individuals presentingwith a behavioral health or substance use related crisis and works to connect individuals to appropriate interventions, services and resources at no cost. All referrals are welcome and can be made byand are not limited to Walk-Ins, Law Enforcement, EMS and Hospitals. For adults 18 and older Voluntarily seeking support Immediate evaluation and intervention for adults experiencing a behavioral health or substance use related crisis. Risk management and safety plan for adults at risk of harming themselves or others Access to psychiatric provider and psychiatric medications Access to resources to meet basic needs (shower and laundry) Connection to additional and ongoing resources and services as needed-- adults who present to the [facility] will receive follow up case management support to ensure ongoing connection with services to continue with ongoing stabilization and recovery. [facility] Adults 18 and Over [address] [place] [address] Option #1 [place] [facility] Adults 18 and Over [address] [place] [address] Option #7 [place] [facility] Adults 18 and over [address] [place] [address] (Upper Level) [phone] Option #6 Community Mental Health Resources [facility] [address] [address] www.[email or web address] [phone] Emergency: [phone] Provides mental health case management and psychiatric services. On site pharmacy for prescription medications. No walk-ins. Must make appointment [facility] Call for an appointment [phone] Services: Adult and Pediatric Psychiatry services are available at various [facility] locations. Adult psychiatric services are coordinated by [facility] primary care providers in consultation with a psychiatrist and clinical social services team. Pediatric psychiatry is provided as part of a comprehensive approach to developmental, emotional and behavioral health care needs of children from infancy to 18 years of age. The [facility] pediatric behavioral health team is comprised of psychiatrists, psychologists, a pediatric neurologist, clinical social work care coordinators, a speech and language therapist and leasing assistant. Servicesare coordinated with the child's primary care provider, school, family members and others relevant to the child's care. [facility] [address] [place], [place] [address] [facility] [address] [place], [place] [address] [facility] [address] [place], [place] [address] [facility] [address] [facility], [address], [place] [address] [facility] [address] [place], [place] [address] [facility] [email or web address] [phone] for appointments [facility] provides counseling services at five locations throughout [facility] including [place], [place]. Works with ex-offenders. Completing the eyak of care in [place] Reach your goals with [facility]'s newest resource: Child Psychiatric Services and Adult PsychiatricServices [facility] psychiatric services are the latest example of our ongoing effort to offer the best care to our clients and give them the tools they need to live the lives they want. Clients can now access our on-staff psychiatric nurse practitioners as part of their [facility] teamof professionals. This means they can obtain professional psychiatric evaluations, and psychiatric medication management, as well as appointments with their therapist, within one convenient, streamlined location. Accepting referrals for clients ages 6+ Treating a variety of problems such as depression, mood disorders, anxiety, and trauma Fees based on a sliding scale Most insurances accepted Appointments available at [facility] [place] [facility] and [facility], 5 days a week Provide offers psychiatric services via telehealth or in the office. Clients will complete a temperature check and health screening upon entry and masks/face coverings will be required upon building entry. Appointments may be made by calling [phone]. [facility] [place] Tamara [place]iola [address] ([place] Address-2019) [email or web address] [phone] Crisis Line / Adult Behavioral Health: [phone] Ext. [phone] / Youth & Family Services: [phone] / Outpatient Therapy: [phone] / Ext. [phone] Substance Use Concerns: [phone] Provides care and cost-effective services to people with mental health disorders, including assistance with medication and substance use. Outpatient services for substance use disorder or mental health disorder, which includes psychiatry and/or therapy; and Case management services for substance use disorder and/or mental health disorders. The individual treatment plan may include psychiatry, therapy, and care coordination. Housing services are no longer available. [facility] walk-in hours are available Sunday through Sunday, 8:30-11 a.m. and 1-3 p.m. Appointments may be scheduled by calling [phone], Ext. [phone] Addiction Resources for [facility] Medical Stabilization/Detox - Private Insurance/Private Pay [facility] Center: Susanne Toussaint [phone] or [phone] (can also work with vets/CCN) [facility]: Kenyon Werner [phone] [facility]: [phone] [facility]: [phone] Medical Stabilization/Detox - Medicaid/Medicare/Private Insurance/Private Pay [facility]: [phone] [facility] ([place]): [phone] [facility]: [phone] [facility]: [phone] (can also take uninsured clients for detox) [facility] ([place]): [phone] Residential - Private Insurance/Private Pay [facility] Center: Susanne Toussaint [phone] or [phone] (can also work with vets/CCN) [facility]: [place] Area: Breann Monson [phone] 24 hour admission line [phone] [facility] Center: Kenyon Werner [phone] [facility]: [phone] [facility]: [phone] Residential - State Funded/Private Insurance/Private Pay [facility] ([facility]): [phone]. Have client e-mail [email or web address] (women only, Medicaid/State Funded only): [phone] [facility] ([facility]): [phone] [facility] ([facility] [place]): [phone] [facility] ([place]): [phone] [facility] ([place]): [phone] [facility] ([facility]): [phone] [facility] ([place]): [phone] Detox & Residential - Medicare [facility]: [phone] [facility] ([place], [place] - Need own transportation): [phone] [facility] ([place] - Will provide a bus pass): [phone] Out of State Detox/Residential - Private Insurance/Private Pay/ [facility] ([place]): Ama Mclain [phone] [facility]: Shara Bobby [phone] OLOGICAL ENGINEER documented in this encounter Medications at Time of Discharge buPROPion XL (WELLBUTRIN XL) 300 mg 24 hr tablet Take 1 tablet (300 mg total) by mouth daily carboxymethylcel lulose (REFRESH TEARS) 0.5 % ophthalmic solution Administer 1 drop into both eyes 4 (four) times a day as needed (dry eyes) 07/18/2025 carvediloL (COREG) 25 mg tablet Take 1 tablet (25 mg total) by mouth 2 (two) times a day with meals 60 tablet 11 10/13/2024 03/03/202 6 hydrOXYzine (ATARAX) 50 mg tablet Take 1 tablet (50 mg total) by mouth 3 (three) times a day as needed for itching 60 tablet 08/11/2025 naltrexone (DEPADE) 50 mg tablet Take 1 tablet (50 mg total) by mouth daily 07/19/2025 NIFEdipine (NIFEdipine XL) 60 mg 24 hr tablet Take 1 tablet (60 mg total) by mouth daily 30 tablet 02/01/2025 6 omeprazole (PriLOSEC) 20 mg capsule Take 1 capsule (20 mg total) by mouth daily 30 capsule 1 08/11/2025 6 QUEtiapine (SEROquel) 400 mg tablet Take 1 tablet (400 mg total) by mouth nightly testosterone cypionate (DEPO-TESTOTERON E) 100 mg/mL injection Inject 1.5 mL (150 mg total) into the muscle as instructed once a week Wednesdays thiamine (VITAMIN B1) 100 mg tablet Take 1 tablet (100 mg total) by mouth daily documented as of this encounter Ordered Prescriptions Prescription Sig Dispense Quantity Refills Last Filled Start Date End Date hydrOXYzine (ATARAX) 50 mg tablet Take 1 tablet (50 mg total) by mouth 3 (three) times a day as needed for itching 60 tablet 08/11/2025 omeprazole (PriLOSEC) 20 mg capsule Take 1 capsule (20 mg total) by mouth daily 30 capsule 1 08/11/2025 6 documented in this encounter Discharge Disposition Disposition Code Departure Means Destination Comment s Discharge to home or self care Private Vehicle documented in this encounter Progress Notes * Luz Elena Monaco - 08/10/2025 9:05 PM CST [facility] attempted to complete [place] consult, unable to reach RN , will follow on 08/11/25 Luz Elena Monaco [facility] [phone] OLOGICAL ENGINEER * Isela High - 08/10/2025 6:53 PM CST Behavioral Health Integration (BHI) Navigator Note BHI aware of consult. [facility] to reach out when available. Isela High Behavioral Health Navigator OLOGICAL ENGINEER * Karol Paredes [facility] - 08/10/2025 1:21 PM CST IV to Enteral Note Bryce Sandhu meets P&T-approved criteria for IV to PO therapy conversion. Converted existing order for Pantoprazole to PO per protocol. Karol Paredes [facility] NON-ANTIMICROBIALS Inclusion Criteria All must be met for conversion Patient has received > 24 hours of an eligible IV medication Patient has an intact and functioning gastrointestinal tract Able to tolerate an oral diet OR Able to tolerate enteral feedings OR Patient is NPO except for medications Patient is tolerating other enteral (PO, PEG, or NG) medications for > 24 hours. NON-ANTIMICROBIALS Exclusion Criteria If any are met, do not convert. Age < 14 years OR Age 14 years-18 years and < 40 kg NPO and not receiving enteral medications for any reason Nausea, use of antiemetics, vomiting or severe diarrhea in the past 24 hours NG tube with continuous suction Receiving TPN Vasopressor dependent or hemodynamically unstable Active GI bleed AND on IV proton pump inhibitor (may include when proton pump inhibitor is given enterally) Documented ileus or GI obstruction Malabsorption syndrome, partial or total removal of stomach, short bowel syndrome, severe ostomy output, esophageal fistula. Major upper GI surgery during current admission (e.g. gastrectomy, duodenectomy, pancreatico-duodenectomy) Patients with mucositis SPECIFIC EXCLUSIONS Metoclopramide for oncology patients with chemotherapy-induced nausea and vomiting or receiving highly emetogenic chemotherapy regimens per NCCN guidelines. (Available at https://www.empr.com/clinical -charts/joeawypgiw-enkivunry-md-antineoplastic-agents/article/718062/) Metoclopramide for severe/refractory gastroparesis (defined as refractory vomiting, pronounced dehydration with electrolyte imbalance.) Thiamine should not be converted if patient has received less than 5 days for Wernicke's encephalopathy. Levothyroxine therapy and unable to separate from multivalent cations. Levothyroxine therapy and receiving continuous enteral feedings. Levetiracetam IV to PO conversion should only occur outside of the ICU setting. ANTIMICROBIALS Inclusion Criteria All must be met for conversion Patient has received > 24 hours of an eligible IV antimicrobial Patient has an intact and functioning gastrointestinal tract Able to tolerate an oral diet OR Able to tolerate enteral feedings OR Patient is NPO except for medications Patient is tolerating other enteral (PO, PEG, or NG) medications for > 24 hours. Patient is clinically improving as determined by all of the following factors: Afebrile (temperature < 38 C or 100.4 F) for > 24 hours WBC count is normal or improving If WBC elevation is attributed to steroid use in a patient receiving an eligible antimicrobial for an acute exacerbation of COPD, other parameters of improvement may include: increasing oxygen saturation, decreasing oxygen requirement, or subjective improvement documented in the medical record. ANTIMICROBIALS Exclusion Criteria If any are met, do not convert. Age < 14 years OR Age 14 years-18 years and < 40 kg NPO and not receiving enteral medications for any reason Nausea, use of antiemetics, vomiting or severe diarrhea in the past 24 hours NG tube with continuous suction Receiving TPN Vasopressor dependent or hemodynamically unstable Active GI bleed AND on IV proton pump inhibitor (may include when proton pump inhibitor is given enterally) Documented ileus or GI obstruction Malabsorption syndrome, partial or total removal of stomach, short bowel syndrome, severe ostomy output, esophageal fistula. Major upper GI surgery during current admission (e.g. gastrectomy, duodenectomy, pancreatico-duodenectomy) Patients with mucositis Serious or life-threatening infection such as BUTTONER infection, endocarditis, osteomyelitis, septic arthritis, orbital cellulitis, endophthalmitis, bacteremia, fungemia. (Exception: rifampin IV to enteral is allowed) Infectious Diseases provider specifies to continue IV therapy Immunocompromised status necessitating IV therapy of antimicrobial (i.e. WBC < 4000 cells/mm3 orANC < 1000 cells/mm3) SPECIFIC EXCLUSIONS Fluoroquinolone or tetracycline therapy and unable to separate from multivalent cations. Fluoroquinolone or tetracycline therapy and receiving continuous enteral feedings. OLOGICAL ENGINEER * Donna Leslie NP - 08/10/2025 11:51 AM CST INPATIENT PROGRESS NOTE - HOSPITALIST Bryceso Sandhu is a 55 y.o. male at Hospital Day ( LOS: 1 day ) Chief Complaint Chief Complaint Patient presents with Drug / Alcohol Assessment Pt arrives +ETOH, requesting help with detox. Pt is AOx3, unsteady gait. Subjective Interval History Patient seen and examined; chart reviewed. Case discussed with case management and social services. Pt reports some restlessness, last drink Sunday. Objective: Temp Av.7 ??C (98.1 ??F) Min: 36.4 ??C (97.5 ??F) Max: 36.9 ??C (98.4 ??F) BP Min: 111/80 Max: 181/110 Pulse Av.7 Min: 76 Max: 104 Resp Av Min: 18 Max: 18 SpO2 Av.5 % Min: 95 % Max: 100 % O2 Flow Rate (L/min): 2 L/min Date 08/09/25 07 - 08/10/25 0659 08/10/25 07 - 08/11/25 0659 Shift [id number] [id number] 24 Hour Total [id number] 2757-3490 24 Hour Total INTAKE P.O. 240 240 Shift Total(mL/kg) 240(2.5) 240(2.5) OUTPUT Urine(mL/kg/hr) 500(0.4) 500(0.2) 500 500 Shift Total(mL/kg) 500(5.2) 500(5.2) 500(5.2) 500(5.2) NET -260 -260 -500 -500 Weight (kg) 96.4 96.4 96.4 96.4 96.4 96.4 Intake/Output Summary (Last 24 hours) at 08/10/2025 1151 Last data filed at 08/10/2025 0800 Gross per 24 hour Intake 240 ml Output 1000 ml Net -760 ml Temp (24hrs), Av.7 ??C (98.1 ??F), Min:36.4 ??C (97.5 ??F), Max:36.9 ??C (98.4 ??F) PHYSICAL EXAMINATION General: Appears to be in no acute distress. HEENT: Head normocephalic, atraumatic. PERRLA. EOMI. Conjunctivae are clear. Sclerae are anicteric.Nares are patent. . Mucous membranes are moist. Neck: Supple. No lymphadenopathy, JVD. Lungs: Clear to auscultation. No crackle or wheezing noted. Cardiovascular: Normal S1, S2. Abdomen: Soft, nontender, nondistended with positive bowel sounds. obese Extremities: No clubbing, cyanosis + R hand edema. Neuro: Alert and oriented x3. Active Scheduled and PRN meds buPROPion XL, 300 mg, Daily carvediloL, 25 mg, BID with meals (bkfst, dinner) enoxaparin, 40 mg, Daily-2100 folic acid, 1 mg, Daily naltrexone, 50 mg, Daily NIFEdipine, 60 mg, Daily pantoprazole, 40 mg, Daily QUEtiapine, 400 mg, Nightly thiamine, 100 mg, Daily cloNIDine, 0.1 mg, TID PRN LORazepam, 1 mg, Q4H PRN Or LORazepam, 1 mg, Q2H PRN Or LORazepam, 1 mg, Q1H PRN Or LORazepam, 2 mg, Q1H PRN Or LORazepam, 2 mg, Q1H PRN ondansetron, 4 mg, Q6H PRN Continuous Infusions: Lab Review Recent Labs Lab Units 08/09/25 0223 WBC K/cumm 17.56* HEMOGLOBIN g/dL 16.7 HEMATOCRIT % 52.1* PLATELETS K/cumm 401* NEUTROS PCT % 72.7 LYMPHS PCT % 19.2 MONOS PCT % 6.3 EOS PCT % 0.6 Recent Labs Lab Units 08/09/25 0223 SODIUM mmol/L 142 POTASSIUM PLASMA mmol/L 4.5 CHLORIDE mmol/L 100 CO2 mmol/L 25 ANIONGAP mmol/L 17* GLUCOSE mg/dL 100 BUN SERUM mg/dL 3* CREATININE mg/dL 0.65* CALCIUM mg/dL 9.4 ALBUMIN g/dL 4.7 ALK PHOS Units/L 76 ALT Units/L 18 AST Units/L 23 BILIRUBIN TOTAL mg/dL 0.2 Radiology: XR Chest PA Lateral 2 Views ED Interpretation Clear Final Result No active disease. Electronically signed by: Yumiko Smith M.D. ECG: Results for orders placed during the hospital encounter of 08/09/25 ECG 12 lead Narrative Vent Rate: 115 bpm RR Interval: 519 msec ME Interval: 158 msec QRS Duration: 88 msec QT Interval: 303 msec QTC Interval: 371 msec P-R-T Cool: 71 - 52 - 55 degrees IMPRESSION: SINUS TACHYCARDIA INDETERMINATE AXIS ABNORMAL RHYTHM ECG NO CHANGE FROM PREVIOUS TRACING NOTED Electronically Signed By: Mark Buchanan MD Assessment/Plan Alcohol withdrawal/Alcohol use disorder History of alcohol withdrawal seizure - Monitor for withdrawals - Continue CIWA protocol - cont naltrexone - Continue IV fluids, folate and thiamine - Behavioral health consult Chronic stable problem GERD. Cont Protonix Anxiety/insomnia. Cont Wellbutrin and Seroquel Hypertension, cont Coreg and nifedipine Sleep apnea cont CPAP nocturnally Hepatic steatosis likely related to alcohol use, normal LFT VTE Prophylaxis Laboratory and imaging data independently reviewed by me Prior records and Care Everywhere if available were reviewed. DISPOSITION: pending hospital course Anticipated date of discharge: 08/12 Current barrier(s) to discharge: monitor for w/d Full Code CONSULTS IP CONSULT TO SOCIAL WORK Please note: This note was created in part using the [employer] dictation system. Pot Pusher variances May occur . Despite proofreading, typographical and Grammatical errors may occur. 08/10/2025 11:51 AM Team [facility] [phone] OLOGICAL ENGINEER * Irina Clayton NP - 08/09/2025 1:12 PM CST Follow up note: Patient seen and examined resting in bed. Now admitted on the 10th floor. Reports to be having mildwithdrawal symptoms including high blood pressure increased perspiration and some tremors. Discussed with RN on CIWA protocol. He is nauseous and not really able to tolerate oral intake currently on IV fluids. Chart reviewed. Initial H&P completed early this morning team [facility] will continue tofollow. Irina Clayton NP Team [facility] OLOGICAL ENGINEER documented in this encounter H&P Notes * Taj Cavanaugh MD - 08/09/2025 4:00 AM CST General Medicine History and Physical CHIEF COMPLAINT: Patient is a 55 y.o. male with chief complaint of alcohol withdrawal. HPI: 55-year-old male with past medical history of alcohol use disorder, GERD, anxiety, hypertension, alcohol withdrawal seizures, sleep apnea presented with alcohol withdrawal, last drink was 24 hour prior to the admission,, he has been trying to decrease his alcohol intake, recently down to 1-2 drinksper day, denied nausea but vomited once, no seizure or hallucinations, Denied fever chills, abdominal pain or dysuria In the ED patient was tachycardic, hypertensive, saturating on room air Labs remarkable for anion gap metabolic acidosis, corrected, leukocytosis, thrombocytosis Past Medical History: Diagnosis Date Anxiety Depression ETOH abuse GERD (gastroesophageal reflux disease) Hypertension Seizures (HCC) had 1 seizure when detoxing from alcohol years ago Sleep apnea Past Surgical History: Procedure Laterality Date APPENDECTOMY GANGLION CYST EXCISION Right wrist SINUS SURGERY x 2 TONSILLECTOMY (Not in a hospital admission) Allergies Allergen Reactions Penicillin Hives Social History Tobacco Use Smoking status: Former Types: Cigarettes Smokeless tobacco: Current Types: Chew Substance and Sexual Activity Drug use: Not Currently Types: Marijuana Sexual activity: Defer Alcohol Use: Alcohol Misuse (04/23/2025) AUDIT-C Frequency of Alcohol Consumption: 4 or more times a week Average Number of Drinks: 10 or more Frequency of Binge Drinking: Daily or almost daily No family history on file. Review of Systems: Review of systems per HPI and otherwise all other systems are negative OBJECTIVE: Vitals: Arrival Vitals [08/09/2525] Temp 36.9 ??C (98.4 ??F) Pulse (!) 137 Resp 20 BP (!) 169/112 SpO2 100 % Temp src Oral Heart Rate Source Monitor Patient Position Sitting BP Location Left arm FiO2 (%) 24hr Min/Max: Temp Min: 36.9 ??C (98.4 ??F) Max: 36.9 ??C (98.4 ??F) Pulse Min: 115 Max: 137 BP Min: 169/112 Max: 172/103 Resp Min: 20 Max: 20 SpO2 Min: 93 % Max: 100 % Most Recent : Vitals: 08/09/2525 08/09/25 0340 BP: (!) 169/112 (!) 172/103 BP Location: Left arm Patient Position: Sitting Pulse: (!) 137 115 Resp: 20 Temp: 36.9 ??C (98.4 ??F) TempSrc: Oral SpO2: 100% 93% Weight: 95.7 kg (211 lb) Height: 177.8 cm (5' 10) No intake/output data recorded. I/O this shift: In: 1100 [IV Piggyback:1100] Out: - Physical exam: Physical Exam Constitutional: General: He is not in acute distress. Eyes: General: No scleral icterus. Cardiovascular: Rate and Rhythm: Regular rhythm. Tachycardia present. Heart sounds: Normal heart sounds. Pulmonary: Effort: Pulmonary effort is normal. No respiratory distress. Breath sounds: Normal breath sounds. Abdominal: Palpations: Abdomen is soft. Musculoskeletal: Right lower leg: No edema. Left lower leg: No edema. Neurological: General: No focal deficit present. Mental Status: He is alert and oriented to person, place, and time. Psychiatric: Comments: Anxious Lab/Radiology/Diagnostic Review: Recent Labs Lab Units 08/09/25222 WBC K/cumm 17.56* HEMOGLOBIN g/dL 16.7 HEMATOCRIT % 52.1* PLATELETS K/cumm 401* Recent Labs Lab Units 08/09/25222 SODIUM mmol/L 142 POTASSIUM PLASMA mmol/L 4.5 CHLORIDE mmol/L 100 CO2 mmol/L 25 ANIONGAP mmol/L 17* GLUCOSE mg/dL 100 BUN SERUM mg/dL 3* CREATININE mg/dL 0.65* CALCIUM mg/dL 9.4 ALBUMIN g/dL 4.7 ALK PHOS Units/L 76 ALT Units/L 18 AST Units/L 23 BILIRUBIN TOTAL mg/dL 0.2 Recent Labs Lab Units 08/09/25222 INR 0.93 Imaging: No results found. ASSESSMENT/PLAN: Active Problems: No Active Problems: There are no active problems currently on the Problem List. Please update the Problem List and refresh. Alcohol withdrawal Alcohol use disorder History of alcohol withdrawal seizure - Monitor for withdrawals - Continue CIWA protocol - Resumed home naltrexone - Continue IV fluid dextrose NS for now - Continue folate and thiamine - Monitor electrolytes and replete as needed - Supportive management Tylenol for pain, Zofran for nausea and vomiting - Social work consult for AUD related resources Chronic stable problem GERD resume home Protonix, Anxiety/insomnia resume home Wellbutrin and Seroquel Hypertension, resume home Coreg and nifedipine Sleep apnea resume home CPAP Hepatic steatosis likely related to alcohol use, normal LFT DVT prophylaxis Lovenox Diet regular Anticipated date of discharge: 08/10 -08/11 Discharge disposition: Home Current barrier(s) to discharge: Monitoring for Alcohol withdrwal OLOGICAL ENGINEER documented in this encounter Nursing Notes * Ruby Grider RN - 08/11/2025 9:42 AM CST Patient AAOX4. Discharge education provided. Patient sent home via uber. IV removed. OLOGICAL ENGINEER documented in this encounter ED Notes * Bethel Bailey MD - 08/09/2025 12:52 AM CST HPI Portions of the record may have been created with voice recognition software. Occasional wrong-wordor ???[id number]??? substitutions may have occurred due to the inherent limitations of voice recognition software. Read the chart carefully and recognize, using context, where substitutions have occurred. Chief Complaint Patient presents with Drug / Alcohol Assessment Pt arrives +ETOH, requesting help with detox. Pt is AOx3, unsteady gait. Triage note: Pt arrives +ETOH, requesting help with detox. Pt is AOx3, unsteady gait. Past Medical History: Diagnosis Date Anxiety Depression ETOH abuse GERD (gastroesophageal reflux disease) Hypertension Seizures (HCC) had 1 seizure when detoxing from alcohol years ago Sleep apnea Past Surgical History: Procedure Laterality Date APPENDECTOMY GANGLION CYST EXCISION Right wrist SINUS SURGERY x 2 TONSILLECTOMY Bryce Sandhu is a 55 y.o. male with PMH of ethanol abuse , htn, sz, currently presents with alcohol withdrawal. Last drink was 24 hours ago. States that he has had seizures in the past uncomplicated withdrawal in the past, but no seizures this time. Stop drinking has a 1 and 2. Stated that he has had no falls, no headache, no abdominal pain, no nausea or vomiting except for maybe 1 episode of vomiting. He feels like he is going through withdrawal as no hallucinations or seizures at this time. Patient has a current medication list which includes the following long-term medication(s): bupropion xl, carboxymethylcellulose, carvedilol, folic acid, nifedipine, omeprazole, quetiapine, thiamine,and trazodone. Past Medical History: Diagnosis Date Anxiety Depression ETOH abuse GERD (gastroesophageal reflux disease) Hypertension Seizures (HCC) had 1 seizure when detoxing from alcohol years ago Sleep apnea Past Surgical History: Procedure Laterality Date APPENDECTOMY GANGLION CYST EXCISION Right wrist SINUS SURGERY x 2 TONSILLECTOMY No family history on file. Social History Social History Narrative Not on file BP 139/88 (BP Location: Left arm) Pulse 94 Temp 36.8 ??C (98.2 ??F) (Axillary) Resp 18 Ht 177.8 cm (5' 10) Wt 96.4 kg (212 lb 8.4 oz) SpO2 100% BMI 30.49 kg/m?? Review of systems: Negative unless documented in the HPI or MDM - Constitutional: Patient is well appearing and appears to be nontoxic. - Head: Atraumatic. - Eyes: No scleral icterus. - ENT: No nasal deformity. - Neck: Normal range of motion. - Respiratory: No respiratory distress. No stridor. Clear lungs. - Cardiovascular: Tachycardic rate and regular rhythm. - Abdominal: Non-distended abdomen. - Back: Normal inspection and range of motion. - Extremities: Warm and well perfused. - Neuro: Tremulous, tongue fasciculations, alert and oriented x4, does not appear to be responding to internal stimuli. - Psychiatric: Mood is euthymic. Judgement, insight, memory and concentration appear normal. [facility] Medical Decision Making Amount and/or Complexity of Data Reviewed Labs: ordered. Radiology: ordered and independent interpretation performed. ECG/medicine tests: ordered. Risk Prescription drug management. Decision regarding hospitalization. Additional history provided by: Prior external notes reviewed: Socioeconomic considerations: patient has alcohol use disorder Hgdbunk-reomdmhq-fptdhl summation: Differential diagnosis includes but not limited to highest concern for alcohol withdrawal given thetachycardia, cessation of alcohol. Low concern for delirium tremens at this time given the patient is not disoriented and has no hallucinations although he is at high-risk for progression. Low concern for Wernicke's encephalopathy given patient has no confusion. Electrolyte derangement high in the differential as well Admission considered? : Yes In consideration of the above differential diagnosis, the following orders were placed while the patient was in the Emergency Department. See ED course for pertinent results and imaging interpretation. Orders Placed This Encounter Procedures Critical Care Urinalysis reflex to microscopic and culture Urine XR Chest PA Lateral 2 Views CBC with auto differential Basic metabolic panel Hepatic function panel Lipase Magnesium Protime-INR aPTT Drugs of Abuse Screen, Urine with Reflex Confirmation Ethanol Differential, auto eGFR CBC with auto differential Basic metabolic panel Adult Diet Regular Vital Signs Temperature greater than (C): 38.3; Systolic blood pressure greater than: 160; Systolic blood pressure less than: 90; Diastolic blood pressure greater than: 100; Diastolic blood pressure less than: 50; Heart rate greater than: 120; Heart rate less... Weigh Upon Admission Activity order Up Ad Mirela Nursing communication - Alcohol Withdrawal Alcohol Withdrawal Assessment Scale Notify Provider - Alcohol Withdrawal Communication Order Full Code - FULL CPR NPPV (Noninvasive positive-pressure ventilation) -NPPV Settings: Per Protocol; Home Unit: No ECG 12 lead Admit to inpatient - anticipate 2 or more midnights OR Medicare inpatient only procedure Fall precautions The patient received the following medications: Medications enoxaparin (LOVENOX) syringe 40 mg (40 mg subcutaneous Given 08/09/252040) dextrose 5% and sodium chloride 0.9% infusion (premix) (75 mL/hr intravenous New Bag 08/09/25 1418) LORazepam (ATIVAN) tablet 1 mg ( oral See Alternative 08/09/251735) Or LORazepam (ATIVAN) tablet 1 mg ( oral See Alternative 08/09/251735) Or LORazepam (ATIVAN) tablet 1 mg ( oral See Alternative 08/09/251735) Or LORazepam (ATIVAN) 2 mg in sodium chloride 0.9% (further dilution required) injection ( intravenousSee Alternative 08/09/251735) Or LORazepam (ATIVAN) injection 2 mg (2 mg intramuscular Given 08/09/251735) thiamine (VITAMIN B-1) tablet 100 mg (100 mg oral Given 08/09/25 0940) folic acid (FOLVITE) tablet 1 mg (1 mg oral Given 08/09/25 0940) buPROPion XL (WELLBUTRIN XL) 24 hour tablet 300 mg (300 mg oral Given 08/09/25 0940) NIFEdipine (PROCARDIA XL/ADALAT CC) extended release tablet 60 mg (60 mg oral Given 08/09/25 0940) QUEtiapine (SEROquel) tablet 400 mg (400 mg oral Given 08/09/252040) carvediloL (COREG) tablet 25 mg (25 mg oral Given 08/09/25 1736) naltrexone (DEPADE) tablet 50 mg (has no administration in time range) ondansetron (ZOFRAN) injection 4 mg (4 mg intravenous Given 08/09/25 1228) pantoprazole (PROTONIX) 40 mg in sodium chloride 0.9% 10 mL IV Syringe (40 mg intravenous Given 08/09/25 1247) cloNIDine (CATAPRES) tablet 0.1 mg (has no administration in time range) thiamine in sodium chloride 0.9% (premix) 500 mg (500 mg intravenous Given 08/09/25 0254) Lactated Ringer's (LR) bolus 1,000 mL (0 mL intravenous Stopped 08/09/25 0334) PHENobarbital 478 mg in sodium chloride 0.9% 100 mL IVPB (0 mg intravenous Stopped 08/09/25 0252) PHENobarbital injection 130 mg (130 mg intravenous Given 08/09/25 0428) Attending Summary of Care ED Course as of 08/09/252313 Time: 08/09 401 Comment: Signed out to Dr. Garcia. Patient states he is felt better with the phenobarbital but is now feeling worse again. We will give a dose of phenobarbital By: Bethel Bailey MD ED Diagnoses: 1. Alcohol withdrawal syndrome without complication (HCC) 2. Tachycardia Bethel Bailey MD 08/09/252313 OLOGICAL ENGINEER * Martha Peters RN - 08/09/2025 12:31 AM CST Pt arrives +ETOH, requesting help with detox. Pt is AOx3, unsteady gait. Past Medical History: Diagnosis Date Anxiety Depression ETOH abuse GERD (gastroesophageal reflux disease) Hypertension Seizures (HCC) had 1 seizure when detoxing from alcohol years ago Sleep apnea Past Surgical History: Procedure Laterality Date APPENDECTOMY GANGLION CYST EXCISION Right wrist SINUS SURGERY x 2 TONSILLECTOMY OLOGICAL ENGINEER documented in this encounter Miscellaneous Notes * Plan of Care - Ruby Otto RN - 08/11/2025 10:00 AM CST DISCHARGE PLANNING HAS BEEN FINALIZED AT THIS TIME Case management team met with patient and finalized discharge planning. Please see below. CM following for plan of care, anticipated discharge date, and discharge goals. S/w patient regarding plan for discharge home today d/t family issues. Patient will be transported home via Uber. All questions answered and addressed and pt/family agreeable to plan. Will continue to follow for discharge planning and supportive care per protocol. Discharge Disposition (01) Expected Discharge Date and Time Expected Discharge Date Aug 11, 2025 08/11/25 1000 Discharge Summary Discharge Disposition Private residence Recommended Discharge Level of Care Private residence Actual Discharge Level of Care Private residence Does Actual Level of Care Match Care Team Recommendation? Yes Post Acute Care Plan Post Acute Care Needs Identified No Discharge Additional Assistance Does the patient need discharge transport arranged? Yes Type of Transportation Cab Has discharge transport been arranged? Yes D/C Transport Anticipated Date 08/11/25 Post Discharge Care Provider Post Discharge Care Plan Next level of care provider has access to complete EMR This discharge plan, including the mode of transport has been discussed with the patient/family, physician and nursing staff. All are agreeable to plan and understand their responsibility to ensure the safe discharge. If there is a change in patient condition which could impact this plan and/or additional discharge needs arise, please contact Case Management/Social Work. Lisa Otto RN-BSN, CCRN Agricultural Equipment Operator [phone] OLOGICAL ENGINEER * Plan of Care - Ruby Grider RN - 08/11/2025 9:05 AM CST Problem: Discharge Planning Goal: Understanding discharge needs will improve Outcome: Progressing Problem: Activity Goal: Risk for activity intolerance and fatigue will decrease Outcome: Progressing Goal: Ability to tolerate increased activity will improve Outcome: Progressing Goal: Ability to avoid complications of mobility impairment will improve Outcome: Progressing Problem: Communication Impairment Goal: Ability to express needs and understand communication Outcome: Progressing Problem: Coping Goal: Verbalization of decreased anxiety will be supported Outcome: Progressing Goal: Able to verbalize concerns and demonstrate effective coping strategies Outcome: Progressing Goal: Froilan effectively with procedures resulting in improved understanding of illness/injury, pain/anxiety reduction Outcome: Progressing Goal: Ability to identify and develop effective coping behavior will improve Outcome: Progressing Problem: Fluid Volume Goal: Ability to maintain a balanced intake and output will improve Outcome: Progressing Goal: Will show no signs and symptoms of excessive bleeding Outcome: Progressing Problem: General Patient Education Goal: Knowledge of disease process, condition or treatment will be improved Outcome: Progressing Problem: Health Behavior Goal: Ability to state signs and symptoms to report to health care provider will improve Outcome: Progressing Goal: Ability to identify and alter actions that are detrimental to health will improve Outcome: Progressing Goal: Ability to identify and utilize available resources and services will improve Outcome: Progressing Goal: Compliance with prescribed regimen will improve Outcome: Progressing Problem: Nutritional Goal: Nutrient intake appropriate for improving, restoring or maintaining nutritional needs Outcome: Progressing Problem: Safety Goal: Free from injury or harm Outcome: Progressing Goal: Ability to maintain safety and efficiency with swallowing without signs of aspiration will improve Outcome: Progressing Problem: Self-Care Goal: Ability to participate in self-care as condition permits will improve Outcome: Progressing Problem: Sensory Goal: General experience of comfort will improve Outcome: Progressing Problem: Tissue Perfusion Goal: Adequacy of tissue perfusion will improve Outcome: Progressing Goals: Clinical Goals for the Shift: VSS, SAFETY, COMFORT Mosquito Sprayer Patient Centered Goal for Treatment: To be stable for discharge. Summary: Patient remained stable throughout shift. Patient requesting to be discharged states his mom is in hospice and needs to be with her. OLOGICAL ENGINEER OLOGICAL ENGINEER * Plan of Care - Geo Birmingham RN - 08/11/2025 2:46 AM CST Goals: Clinical Goals for the Shift: VSS, safety, comfort [facility] Patient Centered Goal for Treatment: To be stable for discharge. Summary: resting in bed no needs at this time OLOGICAL ENGINEER * Initial Assessments - Ruby Otto RN - 08/10/2025 5:25 PM RADIOLOGICAL ENGINEER CM Initial Assessment Interview Note Information Obtained From: Patient (08/10/251716) Admission Source: Pt admitted from home Impression: Pt admitted for ETOH withdrawal. CM s/w patient to complete initial discharge planning and demographics verified via face-sheet. SDOH completed; see below for details. 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 Plan Includes: Inpatient plan includes CIWA protocol, QMHP, SW, IVF, CPAP, Medical management, Supportive care, and Discharge planning.. Plan to discharge home once stable. can sorter is mother andtransportation to be provided by [employer] at d/c. F/u PCP appt to be made by patient per choice; pt/family agreeable to this. CM stressed the importance of following up with PCP within 7-10 days of discharge from the hospital. Advance directive declined. All questions were answered and addressed. CM will continue to follow for discharge needs. Additional Information: readmit for 07[facility]15 [facility] ETOH withdrawal. Primary Source of Transportation: Does the patient need discharge transport arranged?: Yes Type of Transportation: Cab Has discharge transport been arranged?: Yes D/C Transport Anticipated Date: 08/12/25 (08/10/251716) Health Insurance Coverage: [employer] and [facility] Prescription Coverage: [facility] ([facility] Pharmacy: [id number] - [place], [place] - [address] [facility] [address] [facility] [phone] [facility] - [place], [place] - [address] [facility] [id number] Primary Care Provider: Weston Mantilla DO Prior to Admission: Functional Status: Independent with ADLs Primary Caregiver: Self Support System: Parent When was the last time you have seen your PCP?: Within last 6 months Home Care Services: No Outpatient Services: No Durable Medical Equipment: CPAP/Bi-PAP DME Name and Contact Number: [place] Living Arrangements: Alone Type of Residence: Private residence Steps in home?: No steps inside or outside (08/10/251716) SDOH: Transportation: In the past 12 months, has lack of transportation kept you from medical appointments or from getting medications?: No In the past 12 months, has lack of transportation kept you from meetings, work, or from getting things needed for daily living?: No (08/10/251723) Financial Resource: How hard is it for you to pay for the very basics like food, housing, medical care, and heating?: Not hard at all (08/10/251723) Housing: In the last 12 months, was there a time when you were not able to pay the mortgage or rent on time?: No In the past 12 months, how many times have you moved where you were living?: 1 At any time in the past 12 months, were you homeless or living in a [place] facility (including now)?: No (08/10/251724) Utilities: No, (08/10/251723) Social Connections: In a typical week, how many times do you talk on the phone with family, friends, or neighbors?: More than three times a week How often do you get together with friends or relatives?: More than three times a week How often do you attend lutheran or spiritism services?: More than 4 times per year Do you belong to any clubs or organizations such as lutheran groups, unions, fraternal or athletic groups, or school groups?: No How often do you attend meetings of the clubs or organizations you belong to?: Never Are you , , , , never , or living with a partner?: (08/10/251723) Food Insecurity: Within the past 12 months, you worried that your food would run out before you got the money to buymore.: Never true Within the past 12 months, the food you bought just didn't last and you didn't have money to get more.: Never true (08/10/25 172) Behavioral Health Services: Behavioral Health Services: No (08/10/251716) Anticipated Level of Care: Anticipated discharge level of care: Private residence Pt/Family agrees with Anticipated Level of Care: Yes (08/10/251716) Patient expects to be Discharged to: Private residence, (08/10/251716) Patient's Identified Problem/Goal Problem: Ensure acute medical needs are met and that patient has a safe discharge plan. Goal: Secure a discharge plan that patient/family are agreeable with and ensure patient has continuum of care. Case management will follow for discharge planning and send referrals as needed. Lisa Otto RN-BSN, CCRN Agricultural Equipment Operator [phone] OLOGICAL ENGINEER * Plan of Care - Ruby Grider RN - 08/10/2025 10:17 AM CST Problem: Discharge Planning Goal: Understanding discharge needs will improve Outcome: Progressing Problem: Activity Goal: Risk for activity intolerance and fatigue will decrease Outcome: Progressing Goal: Ability to tolerate increased activity will improve Outcome: Progressing Goal: Ability to avoid complications of mobility impairment will improve Outcome: Progressing Problem: Communication Impairment Goal: Ability to express needs and understand communication Outcome: Progressing Problem: Coping Goal: Verbalization of decreased anxiety will be supported Outcome: Progressing Goal: Able to verbalize concerns and demonstrate effective coping strategies Outcome: Progressing Goal: Froilan effectively with procedures resulting in improved understanding of illness/injury, pain/anxiety reduction Outcome: Progressing Goal: Ability to identify and develop effective coping behavior will improve Outcome: Progressing Problem: Fluid Volume Goal: Ability to maintain a balanced intake and output will improve Outcome: Progressing Goal: Will show no signs and symptoms of excessive bleeding Outcome: Progressing Problem: General Patient Education Goal: Knowledge of disease process, condition or treatment will be improved Outcome: Progressing Problem: Health Behavior Goal: Ability to state signs and symptoms to report to health care provider will improve Outcome: Progressing Goal: Ability to identify and alter actions that are detrimental to health will improve Outcome: Progressing Goal: Ability to identify and utilize available resources and services will improve Outcome: Progressing Goal: Compliance with prescribed regimen will improve Outcome: Progressing Problem: Nutritional Goal: Nutrient intake appropriate for improving, restoring or maintaining nutritional needs Outcome: Progressing Problem: Safety Goal: Free from injury or harm Outcome: Progressing Goal: Ability to maintain safety and efficiency with swallowing without signs of aspiration will improve Outcome: Progressing Problem: Self-Care Goal: Ability to participate in self-care as condition permits will improve Outcome: Progressing Problem: Sensory Goal: General experience of comfort will improve Outcome: Progressing Problem: Tissue Perfusion Goal: Adequacy of tissue perfusion will improve Outcome: Progressing Goals: Clinical Goals for the Shift: VSS, safety, comfort Mosquito Sprayer Patient Centered Goal for Treatment: To be stable for discharge. Summary: Patient remained stable throughout shift. OLOGICAL ENGINEER OLOGICAL ENGINEER * Plan of Care - Candida Avila RN - 08/10/2025 2:15 AM CST Problem: Discharge Planning Goal: Understanding discharge needs will improve Outcome: Ongoing Problem: Activity Goal: Risk for activity intolerance and fatigue will decrease Outcome: Ongoing Goal: Ability to tolerate increased activity will improve Outcome: Ongoing Goal: Ability to avoid complications of mobility impairment will improve Outcome: Ongoing Problem: Communication Impairment Goal: Ability to express needs and understand communication Outcome: Ongoing Problem: Coping Goal: Verbalization of decreased anxiety will be supported Outcome: Ongoing Goal: Able to verbalize concerns and demonstrate effective coping strategies Outcome: Ongoing Goal: Froilan effectively with procedures resulting in improved understanding of illness/injury, pain/anxiety reduction Outcome: Ongoing Goal: Ability to identify and develop effective coping behavior will improve Outcome: Ongoing Problem: Fluid Volume Goal: Ability to maintain a balanced intake and output will improve Outcome: Ongoing Goal: Will show no signs and symptoms of excessive bleeding Outcome: Ongoing Problem: General Patient Education Goal: Knowledge of disease process, condition or treatment will be improved Outcome: Ongoing Problem: Health Behavior Goal: Ability to state signs and symptoms to report to health care provider will improve Outcome: Ongoing Goal: Ability to identify and alter actions that are detrimental to health will improve Outcome: Ongoing Goal: Ability to identify and utilize available resources and services will improve Outcome: Ongoing Goal: Compliance with prescribed regimen will improve Outcome: Ongoing Problem: Nutritional Goal: Nutrient intake appropriate for improving, restoring or maintaining nutritional needs Outcome: Ongoing Problem: Safety Goal: Free from injury or harm Outcome: Ongoing Goal: Ability to maintain safety and efficiency with swallowing without signs of aspiration will improve Outcome: Ongoing Problem: Self-Care Goal: Ability to participate in self-care as condition permits will improve Outcome: Ongoing Problem: Sensory Goal: General experience of comfort will improve Outcome: Ongoing Problem: Tissue Perfusion Goal: Adequacy of tissue perfusion will improve Outcome: Ongoing Goals: Clinical Goals for the Shift: VSS, safety, comfort Mosquito Sprayer Patient Centered Goal for Treatment: To be stable for discharge. Summary: Patient accepted all treatments. OLOGICAL ENGINEER * Plan of Care - Ruby Grider RN - 08/09/2025 10:04 AM CST Problem: Discharge Planning Goal: Understanding discharge needs will improve Outcome: Ongoing Problem: Activity Goal: Risk for activity intolerance and fatigue will decrease Outcome: Ongoing Goal: Ability to tolerate increased activity will improve Outcome: Ongoing Goal: Ability to avoid complications of mobility impairment will improve Outcome: Ongoing Problem: Communication Impairment Goal: Ability to express needs and understand communication Outcome: Ongoing Problem: Coping Goal: Verbalization of decreased anxiety will be supported Outcome: Ongoing Goal: Able to verbalize concerns and demonstrate effective coping strategies Outcome: Ongoing Goal: Froilan effectively with procedures resulting in improved understanding of illness/injury, pain/anxiety reduction Outcome: Ongoing Goal: Ability to identify and develop effective coping behavior will improve Outcome: Ongoing Problem: Fluid Volume Goal: Ability to maintain a balanced intake and output will improve Outcome: Ongoing Goal: Will show no signs and symptoms of excessive bleeding Outcome: Ongoing Problem: General Patient Education Goal: Knowledge of disease process, condition or treatment will be improved Outcome: Ongoing Problem: Health Behavior Goal: Ability to state signs and symptoms to report to health care provider will improve Outcome: Ongoing Goal: Ability to identify and alter actions that are detrimental to health will improve Outcome: Ongoing Goal: Ability to identify and utilize available resources and services will improve Outcome: Ongoing Goal: Compliance with prescribed regimen will improve Outcome: Ongoing Problem: Nutritional Goal: Nutrient intake appropriate for improving, restoring or maintaining nutritional needs Outcome: Ongoing Problem: Safety Goal: Free from injury or harm Outcome: Ongoing Goal: Ability to maintain safety and efficiency with swallowing without signs of aspiration will improve Outcome: Ongoing Problem: Self-Care Goal: Ability to participate in self-care as condition permits will improve Outcome: Ongoing Problem: Sensory Goal: General experience of comfort will improve Outcome: Ongoing Problem: Tissue Perfusion Goal: Adequacy of tissue perfusion will improve Outcome: Ongoing Goals: Clinical Goals for the Shift: VSS, safety, comfort Mosquito Sprayer Patient Centered Goal for Treatment: To be stable for discharge. Summary: Patient remained stable throughout shift. OLOGICAL ENGINEER OLOGICAL ENGINEER * ED Procedure Note - Bethel Bailey MD - 08/09/2025 1:32 AM RADIOLOGICAL ENGINEER Associated Order(s): Critical Care Procedure Critical Care Performed by: Bethel Bailey MD Authorized by: Bethel Bailey MD Critical care provider statement: As reflected in the history, physical exam, orders, notes, and/or MDM, I was personally present while the patient was critically ill and provided critical care services for 45 minutes, excluding timeinvolved in separately billable procedures. Critical care was necessary to treat or prevent imminent or life- threatening deterioration of the following condition(s): Critical care performed for alcohol withdrawal with vital sign derangements, performed IV barbiturates, fluids, thiamine, electrolyte repletion, magnesium empirically. Critical care was time spent by me providing the following: continuous pulse oximetry, interpretation of bedside monitors, and imaging. I provided emergent necessary critical care medicine services to this patient: Lab draws, serial bedside patient exams and serial laboratory checks. I ordered and reviewed test results and/or imaging studies. I spent time discussing the management of this critically ill patient with consultants and the medical staff. I spent time discussing the management and therapeutic options for this critically ill patient with the patient themselves or with the appropriate designated surrogate decision-maker. I spent time documenting in the medical record. Bethel Bailey MD 08/09/25 [id number] OLOGICAL ENGINEER documented in this encounter Plan of Treatment Not on file documented as of this encounter Procedures Procedure Name Priority Date/Time Associated Diagnosis Comments XR CHEST PA LATERAL 2 VIEWS ED 08/09/2025 4:06 AM RADIOLOGICAL ENGINEER ECG 12-LEAD Routine 08/09/2025 3:58 AM RADIOLOGICAL ENGINEER EGFR STAT 08/09/2025 2:23 AM RADIOLOGICAL ENGINEER DIFFERENTIAL AUTO STAT 08/09/2025 2:2 3 AM RADIOLOGICAL ENGINEER CBC WITH AUTO DIFFERENTIAL STAT 08/09/2025 2:23 AM RADIOLOGICAL ENGINEER APTT STAT 08/09/2025 2:23 AM RADIOLOGICAL ENGINEER PROTIME-INR STAT 08/09/2025 2:23 AM RADIOLOGICAL ENGINEER MAGNESIUM Routine 08/09/2025 2:23 AM RADIOLOGICAL ENGINEER LIPASE STAT 08/09/2025 2:23 AM RADIOLOGICAL ENGINEER ETHANOL Routine 08/09/2025 2:23 AM RADIOLOGICAL ENGINEER HEPATIC FUNCTION PANEL STAT 2:23 AM RADIOLOGICAL ENGINEER BASIC METABOLIC PANEL STAT 08/09/2025 2:23 AM RADIOLOGICAL ENGINEER ME CRITICAL CARE ILL/INJURED PATIENT INIT 30-74 MIN Routine 08/09/2025 1:32 AM RADIOLOGICAL ENGINEER BENZODIAZEPINE CONFIRMATION BY MS STAT 08/09/2025 1:16 AM RADIOLOGICAL ENGINEER DRUGS OF ABUSE SCREEN, URINE WITH REFLEX CONFIRMATION STAT 08/09/2025 1:16 AM RADIOLOGICAL ENGINEER URINALYSIS AND REFLEX TO MICROSCOPIC AND CULTURE STAT 08/09/2025 1:16 AM RADIOLOGICAL ENGINEER documented in this encounter Results * XR Chest PA Lateral 2 Views (08/09/2025 4:06 AM RADIOLOGICAL ENGINEER) Anatomical Region Laterality Modality Body, Chest N/A Computed Radiogr aphy 08/09/2025 10:3 5 AM RADIOLOGICAL ENGINEER Impressions 08/09/2025 10:35 AM RADIOLOGICAL ENGINEER No active disease. Electronically signed by: Yumiko Smith M.D. Narrative 08/09/2025 10:35 AM RADIOLOGICAL ENGINEER EXAMINATION: XR CHEST PA LATERAL 2 VIEWS HISTORY: The patient is a 55-year-old male who presents with tachycardia. Comparison made with the previous study dated 07/15/2025 TECHNIQUE: PA and lateral view of the chest. FINDINGS: Lungs clear. Cardiovascular structures unremarkable. Procedure Note Yumiko Smith MD - 08/09/2025 EXAMINATION: XR CHEST PA LATERAL 2 VIEWS HISTORY: The patient is a 55-year-old male who presents with tachycardia. Comparison made with the previous study dated 07/15/2025 TECHNIQUE: PA and lateral view of the chest. FINDINGS: Lungs clear. Cardiovascular structures unremarkable. IMPRESSION: No active disease. Electronically signed by: Yumiko Smith M.D. Bethel Bailey MD IMG XR PROCEDURES Fin al Result * ECG 12 lead (08/09/2025 3:58 AM RADIOLOGICAL ENGINEER) 08/09/2025 3:58 AM RADIOLOGICAL ENGINEER Narrative [facility] - 08/09/2025 7:44 AM RADIOLOGICAL ENGINEER Vent Rate: 115 bpm RR Interval: 519 msec ME Interval: 158 msec QRS Duration: 88 msec QT Interval: 303 msec QTC Interval: 371 msec P-R-T Cool: 71 - 52 - 55 degrees IMPRESSION: SINUS TACHYCARDIA INDETERMINATE AXIS ABNORMAL RHYTHM ECG NO CHANGE FROM PREVIOUS TRACING NOTED Electronically Signed By: Mark Buchanan MD Bethel Bailey MD ECG ORDERABLES Final Result [facility] * eGFR (08/09/2025 2:23 AM RADIOLOGICAL ENGINEER) Pathologist [facility] eGFR >90 >=60 mL/min/1. 73 m2 Comment: [...] interpretive data was last reviewed 2021. Blood 08/09/2025 2:23 AM RADIOLOGICAL ENGINEER 08/09/2025 2:28 AM RADIOLOGICAL ENGINEER us Bethel Bailey MD LAB BLOOD ORDERABLES Final Result [facility] [id number] [address] Department [place] [address] * (ABNORMAL) Differential, auto (08/09/2025 2:23 AM RADIOLOGICAL ENGINEER) Pathologist [facility] Neutrophil abs 12.76(H) 1.50 - 6.50 K/cumm Imm gran abs 0.09 0.00 - 0.10 K/cumm [facility] Lymphocyte abs 3.37(H) 0.80 - 3.30 K/cumm [facility] Monocyte abs 1.10(H) 0.20 - 0.80 K/cumm [facility] Eosinophil abs 0.11 0.00 - 0.50 K/cumm [facility] Basophil abs 0.13(H) 0.00 - 0.10 K/cumm [facility] Neutrophil pct 72.7 % [facility] Comment: Interpretive Data Percent cell count reference ranges are not reported, since discordance with absolute values may lead to misinterpretation of CBC data. Current Interpretive Data was last revised on 2017. Imm gran pct 0.5 % [facility] Comment: Interpretive Data Percent cell count reference ranges are not reported, since discordance with absolute values may lead to misinterpretation of CBC data. Current Interpretive Data was last revised on 2017. Lymphocyte pct 19.2 % [facility] Comment: Interpretive Data Percent cell count reference ranges are not reported, since discordance with absolute values may lead to misinterpretation of CBC data. Current Interpretive Data was last revised on 2017. Monocyte pct 6.3 % [facility] Comment: Interpretive Data Percent cell count reference ranges are not reported, since discordance with absolute values may lead to misinterpretation of CBC data. Current Interpretive Data was last revised on 2017. Eosinophil pct 0.6 % [facility] Comment: Interpretive Data Percent cell count reference ranges are not reported, since discordance with absolute values may lead to misinterpretation of CBC data. Current Interpretive Data was last revised on 2017. Basophil pct 0.7 % [facility] Comment: Interpretive Data Percent cell count reference ranges are not reported, since discordance with absolute values may lead to misinterpretation of CBC data. Current Interpretive Data was last revised on 2017. Blood 08/09/2025 2:23 AM RADIOLOGICAL ENGINEER 08/09/2025 2:28 AM RADIOLOGICAL ENGINEER Bethel Bailey MD LAB BLOOD ORDERABLES Final Result [facility] [address] [address] Department [place] [address] * (ABNORMAL) Ethanol (08/09/2025 2:23 AM RADIOLOGICAL ENGINEER) Ethanol 252(H) <=10 mg/dL Comment: Interpretive Data Legal limit of intoxication > or = 80 mg/dL Levels > or = 400 mg/dL are potentially TOXIC. Current interpretive data was last revised on 2018. Blood 08/09/2025 2:23 AM RADIOLOGICAL ENGINEER 08/09/2025 2:28 AM RADIOLOGICAL ENGINEER Bethel Bailey MD LAB BLOOD ORDERABLES Final Result Performing Organization Address [facility] de Phone Number [facility] ST[facility] [id number] [address] [facility] [place] [address] * aPTT (08/09/2025 2:23 AM RADIOLOGICAL ENGINEER) aPTT 26 26 - 38 sec Comment: Interpretive Data Heparin therapeutic range: 66.0 - 100.0 seconds. Range based on correlation with therapeutic heparin activity range of 0.3 - 0.7 Units/mL. Blood 08/09/2025 2:23 AM RADIOLOGICAL ENGINEER 08/09/2025 2:28 AM RADIOLOGICAL ENGINEER Bethel Bailey MD LAB BLOOD ORDERABLES Final Result Performing Organization Address [facility] Phone Number ALFREDOAYDE STA[facility] [id number] [address] [facility] [place] [address] * Protime-INR (08/09/2025 2:23 AM RADIOLOGICAL ENGINEER) PT 10.5 10.2 - 13.5 sec INR 0.93 0.90 - 1.20 [facility] Comment: Interpretive data Oral anticoagulant therapeutic ranges: Venous thromboembolism prophylaxis or treatment: 2.0-3.0 CARDIOLOGY Standard range: 2.0-3.0 High-intensity range: 2.5-3.5 Refer to indication-specific guidelines for appropriate target ranges for prosthetic heart valve replacement. Current interpretive data was last revised on 2019. Blood 08/09/2025 2:23 AM RADIOLOGICAL ENGINEER 08/09/2025 2:28 AM RADIOLOGICAL ENGINEER Bethel Bailey MD LAB BLOOD ORDERABLES Final Result Performing Organization Address [facility] de Phone Number [facility] ST[facility] [phone] [address] [facility] [place] [address] * Magnesium (08/09/2025 2:23 AM RADIOLOGICAL ENGINEER) Magnesium 1.9 1.4 - 2.5 mg/dL Blood 08/09/2025 2:23 AM RADIOLOGICAL ENGINEER 08/09/2025 2:28 AM RADIOLOGICAL ENGINEER Bethel Bailey MD LAB BLOOD ORDERABLES Final Result Performing Organization Address [facility] Co de Phone Number [facility]AN STAHL [phone] [address] [facility] [address] [place], [place] [id number] * Lipase (08/09/2025 2:23 AM RADIOLOGICAL ENGINEER) Lipase 24 10 - 99 Units/L Blood 08/09/2025 2:23 AM RADIOLOGICAL ENGINEER 08/09/2025 2:28 AM RADIOLOGICAL ENGINEER Bethel Bailey MD LAB BLOOD ORDERABLES Final Result Performing Organization Address [facility] Phone Number [facility] STA[facility] [phone] [address] [facility] [place] [address] * Hepatic function panel (08/09/2025 2:23 AM RADIOLOGICAL ENGINEER) Bilirubin, total 0.2 0.1 - 1.2 mg/dL Bilirubin, direct <0.1 0.1 - 0.3 mg/dL [facility] Protein, pl 8.0 6.5 - 8.5 g/dL [facility] Albumin 4.7 3.5 - 5.0 g/dL [facility] Alk phos 76 40 - 130 Units/L [facility] ALT 18 7 - 55 Units/L [facility] AST 23 10 - 50 Units/L [facility] Blood 08/09/2025 2:23 AM RADIOLOGICAL ENGINEER 08/09/2025 2:28 AM RADIOLOGICAL ENGINEER Bethel Bailey MD LAB BLOOD ORDERABLES Final Result Performing Organization Address [facility] Co de Phone Number [facility] ST[facility] [phone] [address] [facility] [place] [address] * (ABNORMAL) Basic metabolic panel (08/09/2025 2:23 AM RADIOLOGICAL ENGINEER) Sodium 142 135 - 145 mmol/L Potassium, pl 4.5 3.3 - 4.9 mmol/L [facility] Chloride 100 97 - 110 mmol/L [facility] CO2 25 22 - 32 mmol/L [facility] Anion gap 17(H) 2 - 15 mmol/L [facility] BUN 3(L) 6 - 25 mg/dL [facility] Creatinine 0.65(L) 0.80 - 1.30 mg/dL [facility] Glucose 100 70 - 199 mg/dL [facility] Comment: Interpretive Data Fasting glucose >/= [...] interpretive data was last revised 2022. Calcium 9.4 8.5 - 10.3 mg/dL [facility] Blood 08/09/2025 2:23 AM RADIOLOGICAL ENGINEER 08/09/2025 2:28 AM RADIOLOGICAL ENGINEER Bethel Bailey MD LAB BLOOD ORDERABLES Final Result [facility] [address] [address] Department [place] [address] * (ABNORMAL) CBC with auto differential (08/09/2025 2:23 AM RADIOLOGICAL ENGINEER) Pathologist [facility] WBC 17.56(H) 3.80 - 9.90 K/cumm Hgb 16.7 13.0 - 17.5 g/dL [facility] Hct 52.1(H) 38.9 - 50.3 % [facility] Plt 401(H) 150 - 400 K/cumm [facility] MPV 10.0 9.1 - 12.3 fL [facility] RBC 5.52 4.30 - 5.80 M/cumm [facility] MCV 94.4 81.3 - 96.4 fL [facility] MCH 30.3 27.1 - 33.3 pg [facility] MCHC 32.1(L) 32.3 - 35.7 g/dL [facility] RDW CV 15.0(H) 11.1 - 14.9 % [facility] RDW SD 52.2(H) 35.7 - 48.1 fL [facility] NRBC abs 0.00 0.00 - 0.01 K/cumm [facility] Blood 08/09/2025 2:23 AM RADIOLOGICAL ENGINEER 08/09/2025 2:28 AM RADIOLOGICAL ENGINEER us Bethel Bailey MD LAB BLOOD ORDERABLES Final Result [facility] [address] [address] Department [place] [address] * ME CRITICAL CARE ILL/INJURED PATIENT INIT 30-74 MIN (08/09/2025 1:32 AM RADIOLOGICAL ENGINEER) Narrative Bethel Bailey MD - 08/09/2025 1:32 AM RADIOLOGICAL ENGINEER Bethel Bailey MD 08/09/2025 11:11 PM Critical Care Performed by: Bethel Bailey MD Authorized by: Bethel Bailey MD Critical care provider statement: As reflected in the history, physical exam, orders, notes, and/or MDM, I was personally present while the patient was critically ill and provided critical care services for 45 minutes, excluding time involved in separately billable procedures. Critical care was necessary to treat or prevent imminent or life-threatening deterioration of the following condition(s): Critical care performed for alcohol withdrawal with vital sign derangements, performed IV barbiturates, fluids, thiamine, electrolyte repletion, magnesium empirically. Critical care was time spent by me providing the following: continuous pulse oximetry, interpretation of bedside monitors, and imaging. I provided emergent necessary critical care medicine services to this patient: Lab draws, serial bedside patient exams and serial laboratory checks. I ordered and reviewed test results and/or imaging studies. I spent time discussing the management of this critically ill patient with consultants and the medical staff. I spent time discussing the management and therapeutic options for this critically ill patient with the patient themselves or with the appropriate designated surrogate decision-maker. I spent time documenting in the medical record. us Bethel Bailey MD IN CLINIC/BEDSIDE ORD ERABLES Final Result * (ABNORMAL) Benzodiazepine Confirmation by MS (08/09/2025 1:16 AM RADIOLOGICAL ENGINEER) Pathologist [facility] Alprazolam, ur Does Not Confirm CutOff 20 ng/ml Comment:Testing performed by : [facility], [address] [place]., [address] Clonazepam, ur Does Not Confirm CutOff 20 ng/ml [facility] Comment:Testing performed by : [facility], [address] [place]., [address] Flunitrazepam, ur Does Not Confirm CutOff 20 ng/ml [facility] Comment:Testing performed by : [facility], [address] [place]., [address] Lorazepam, ur Does Not Confirm CutOff 20 ng/ml [facility] Comment:Testing performed by : [facility], [address] [place]., [address] Midazolam, ur Does Not Confirm CutOff 100 ng/mL [facility] Comment:Testing performed by : [facility], [address] [place]., [address] Nordiazepam, ur Confirmed Positive(A) CutOff 20 ng/ml [facility] Comment:Testing performed by : [facility], [address] [place] [address]., [address] Oxazepam, ur Confirmed Positive(A) CutOff 20 ng/ml [facility] Comment:Testing performed by : [facility], [address] [place] [address]., [address] Temazepam, ur Confirmed Positive(A) CutOff 20 ng/ml [facility] Comment: Interpretive Data This test is performed by liquid chromatography tandem mass spectrometry and detects both free and conjugated drug metabolites. Questions concerning interpretation should be directed to the laboratory. The results of this test are intended for clinical use. This test was developed and its performance characteristics determined by [facility]. It has not been cleared or approved by the U.S. Food and Drug Administration. Testing performed by: [facility], [address] [facility], [place]., [address] Urine 08/09/2025 1:16 AM RADIOLOGICAL ENGINEER 08/10/2025 10:24 AM RADIOLOGICAL ENGINEER Bethel Bailey MD LAB URINE ORDERABLES Final Result [facility] [address] [address] Department [place] [address] * (ABNORMAL) Drugs of Abuse Screen, Urine with Reflex Confirmation (08/09/2025 1:16 AM RADIOLOGICAL ENGINEER) Amphetamine, ur Not Detected CutOff 500ng/mL Comment: Interpretive Data - Amphetamines: Samples containing greater than 500 ng/mL d-methamphetamine or other cross-reacting amphetamine compounds are reported as positive. Amphetamine immunoassays are subject to significant false positive rates due to cross-reactivity of non-amphetamine drugs. Confirmatory testing required for definitive results. Current Interpretive Data was last reviewed 2023. Barbiturates, ur Not Detected CutOff 200ng/mL [facility] Comment: Interpretive Data - Barbiturates: Samples containing greater than 200 ng/mL secobarbital or other cross-reacting barbiturate compounds are reported as positive. False positive and false negative results are possible. Confirmatory testing required for definitive results. Current Interpretive Data was last reviewed 2023. Benzodiazepines, ur Screen Positive, presumptive (A) CutOff 100ng/mL [facility] Comment: Interpretive Data - Benzodiazepines: Samples containing greater than 100 ng/mL nordiazepam or other cross-reacting compounds are reported as positive. False positive and false negative results are possible. Confirmatory testing required for definitive results. Current Interpretive Data was last reviewed 2023. Cannabinoids, ur Not Detected CutOff 50 ng/mL [facility] Comment: Interpretive Data - Cannabinoids: Samples containing greater than 50 ng/mL delta-9 THC -COOH or other cross- reacting compounds are reported as positive. False positive and false negative results are possible. Confirmatory testing required for definitive results. Current Interpretive Data was last reviewed 2023. Cocaine, ur Not Detected CutOff 150ng/mL [facility] Comment: Interpretive Data - Cocaine: Samples containing greater than 150 ng/mL benzoylecgonine or other cross- reacting compounds are reported as positive. False positive and false negative results are possible. Confirmatory testing required for definitive results. Current Interpretive Data was last reviewed 2023. Fentanyl, Ur Not Detected CutOff 5 ng/mL [facility] Comment: Interpretive Data - Fentanyl: Samples containing greater than 5 ng/mL norfentanyl, fentanyl, or other cross-reacting fentanyl compounds are reported as positive. False positive and false negative results are possible. Confirmatory testing required for definitive results. Current Interpretive Data was last reviewed 2023. Methadone, ur Not Detected CutOff 300ng/mL [facility] Comment: Interpretive Data - Methadone: Samples containing greater than 300 ng/mL d,l-methadone or other cross-reacting compounds are reported as positive. False positive and false negative results are possible. Confirmatory testing required for definitive results. Current Interpretive Data was last reviewed 2023. Opiates, ur Not Detected CutOff 300ng/mL [facility] Comment: Interpretive Data - Opiates: Samples containing greater than 300 ng/mL morphine or other cross-reacting compounds are reported as positive. False positive and false negative results are possible. Confirmatory testing required for definitive results. Current Interpretive Data was last reviewed 2023. Oxycodone, ur Not Detected CutOff 100ng/mL [facility] Comment: Interpretive Data - Oxycodone: Samples containing greater than 100 ng/mL oxycodone or other cross-reacting compounds are reported as positive. False positive and false negative results are possible. Confirmatory testing required for definitive results. Current Interpretive Data was last reviewed 2023. Phencyclidine, ur Not Detected CutOff 25 ng/mL [facility] Comment: Interpretive Data - Phencyclidine: Samples containing greater than 25 ng/mL phencyclidine or other cross-reacting compounds are reported as positive. False positive and false negative results are possible. Confirmatory testing required for definitive results. Current Interpretive Data was last reviewed 2023. Urine Creatinine 24 mg/dL [facility] Comment: Interpretive Data Urine Creatinine: < 10 mg/dL is extremely dilute = or > 10 but < 20 mg/dL is dilute = or > 20 mg/dL is normal Current Interpretive Data was last revised on 2017. Urine 08/09/2025 1:16 AM RADIOLOGICAL ENGINEER 08/09/2025 1:28 AM RADIOLOGICAL ENGINEER Narrative [facility] - 08/09/2025 1:59 AM RADIOLOGICAL ENGINEER Drug Screening is performed by immunoassay for medical purposes. If positive, confirmation testing will be performed for amphetamines, benzodiazepines, cocaine, fentanyl, methadone, opiates, oxycodone, and phencyclidine. Bethel Bailey MD LAB URINE ORDERABLES Final Result [facility] [address] [address] Department [place] [address] * (ABNORMAL) Urinalysis reflex to microscopic and culture Urine (08/09/2025 1:16 AM RADIOLOGICAL ENGINEER) Color, ur Straw Yellow Clarity, ur Clear Clear [facility] Specific gravity, ur 1.002(L) 1.003 - 1.030 [facility] pH, urine 6.0 [facility] Comment: Interpretive Data U rine pH is affected by diet, medications, systemic acid-base disturbances, and renal tubular function. pH may affect urinary stone formation. For example, urine pH below 6.0 may help reduce the tendency for calcium phosphate stones and pH greater than 6.0 may reduce the tendency for uric acid stone formation. Source: [facility] [place] Current Interpretive Data was last revised on 2017 Protein, ur ql Negative Negative [facility] Glucose, ur ql Negative Negative [facility] Ketones, ur Negative Negative [facility] Bilirubin, ur Negative Negative [facility] Blood, ur Negative Negative [facility] Urobilinogen, ur <2.0 <2.0 mg/dL [facility] Nitrite, ur Negative Negative [facility] Leukocyte esterase, ur Negative Negative [facility] UA reflex comment Reflex conditions for microscopic UA and culture not met. [facility] Urine 08/09/2025 1:16 AM RADIOLOGICAL ENGINEER 08/09/2025 1:28 AM RADIOLOGICAL ENGINEER Bethel Bailey MD LAB MICROBIOLOGY - GE NERAL ORDERABLES Final Result [facility] [address] [address] Department [place] [address] documented in this encounter Visit Diagnoses Diagnosis Alcohol withdrawal syndrome without complication (HCC)- Primary Alcohol withdrawal syndrome without complication (HCC) Tachycardia Unspecified tachycardia documented in this encounter Admitting Diagnoses Diagnosis Alcohol withdrawal syndrome without complication (HCC) documented in this encounter Administered Medications Inactive Administered Medications - up to 3 most recent administrations Medication Order MAR Action Action Date Dose Rate Site buPROPion XL (WELLBUTRIN XL) 24 hour tablet 300 mg 300 mg, oral, Daily, First dose on 08/09/25 at 0900, Do not crush, chew, cut, dissolve, open or otherwise manipulate tablet/capsule. Given 08/11/2025 7:42 AM RADIOLOGICAL ENGINEER 300 mg Given 08/10/2025 7:49 AM RADIOLOGICAL ENGINEER 300 mg Given 08/09/2025 9:40 AM RADIOLOGICAL ENGINEER 300 mg carvediloL (COREG) tablet 25 mg 25 mg, oral, 2 times daily with meals (bkfst, dinner), First dose (after last modification) on 08/09/25 at 0506 Given 08/11/2025 7:43 AM RADIOLOGICAL ENGINEER 25 mg Given 08/10/2025 4:30 PM RADIOLOGICAL ENGINEER 25 mg Given 08/10/2025 7:48 AM RADIOLOGICAL ENGINEER 25 mg cloNIDine (CATAPRES) tablet 0.1 mg 0.1 mg, oral, 3 times daily PRN, high blood pressure, bp>170/90, Starting on 08/09/25 at 1312 dextrose 5% and sodium chloride 0.9% infusion (premix) 75 mL/hr, intravenous, Continuous, Starting on 08/09/25 at 0410, For 24 hours New Bag 08/09/2025 2:18 PM RADIOLOGICAL ENGINEER 75 mL/hr 75 mL/hr New Bag 08/09/2025 4:28 AM RADIOLOGICAL ENGINEER 75 mL/hr 75 mL/hr enoxaparin (LOVENOX) syringe 40 mg 40 mg, subcutaneous, Daily (for enoxaparin), First dose on 08/09/25 at 2100, Indications: Deep Vein Thrombosis PreventionIndications:Deep Vein Thrombosis Prevention Given 08/09/2025 8:41 PM RADIOLOGICAL ENGINEER 40 mg Right Lower Abdomen folic acid (FOLVITE) tablet 1 mg 1 mg, oral, Daily, First dose on 08/09/25 at 0900, For 3 days, Each tablet contains 1 mg of folic acid (1.67 mg DFE)., Indications: Folate DeficiencyIndications:Folate Deficiency Given 08/11/2025 7:43 AM RADIOLOGICAL ENGINEER 1 mg Given 08/10/2025 7:49 AM RADIOLOGICAL ENGINEER 1 mg Given 08/09/2025 9:40 AM RADIOLOGICAL ENGINEER 1 mg Lactated Ringer's (LR) bolus 1,000 mL 1,000 mL, intravenous, at 999 mL/hr, Administer over 1 Hours, Once, On 08/09/25 at 0054, For 1 dose New Bag 08/09/2025 2:21 AM RADIOLOGICAL ENGINEER 1,000 mL 999 mL/hr LORazepam (ATIVAN) 2 mg in sodium chloride 0.9% (further dilution required) injection 2 mg, intravenous, Every 1 hour PRN, other, Score greater than 18 on Alcohol Withdrawl Assessmen, Starting on 08/09/25 at 0408, For 6 days, HOLD for any status indicating over sedation including the following: drifts off to sleep during conversation, minimal or no response to verbal or physical stimulation, or respiratory rate less than 10 breaths per minute. Withdraw ordered dose amount then dilute with equal volume of 0.9% sodium chloride. Administer total volume to patient. Do not exceed a rate of 2 mg/minute., Indications: Alcohol Withdrawal Assessment Scale scoreIndications:Alcohol Withdrawal Assessment Scale score Given 08/09/2025 2:18 PM RADIOLOGICAL ENGINEER 2 mg LORazepam (ATIVAN) injection 2 mg 2 mg, intramuscular, Every 1 hour PRN, other, Score greater than 18 on Alcohol Withdrawl Assessment, Starting on 08/09/25 at 0408, For 6 days, Administer IM if unable to provide IV Push.HOLD for any status indicating over sedation including the following: drifts off to sleep during conversation, minimal or no response to verbal or physical stimulation, or respiratory rate less than 10 breaths per minute. For IV administration, draw up ordered admin dose/volume, then dilute with equal volume of 0.9% sodium chloride and administer total volume to patient. Do not exceed a rate of 2 mg/minute., Indications: Alcohol Withdrawal Assessment Scale scoreIndications:Alcohol Withdrawal Assessment Scale score Given 08/10/2025 6:54 PM RADIOLOGICAL ENGINEER 2 mg Left Deltoid Given 08/10/2025 3:21 PM RADIOLOGICAL ENGINEER 2 mg Le ft Deltoid Given 08/10/2025 10:31 AM RADIOLOGICAL ENGINEER 2 mg L eft Deltoid LORazepam (ATIVAN) tablet 1 mg 1 mg, oral, Every 4 hours PRN, other, Score between 3 and 5 on Alcohol Withdrawl Assessment, Starting on 08/09/25 at 0408, For 6 days, HOLD for any status indicating over sedation including the following: drifts off to sleep during conversation, minimal or no response to verbal or physical stimulation, or respiratory rate less than 10 breaths per minute., Indications: Alcohol Withdrawal Assessment Scale scoreIndications:Alcohol Withdrawal Assessment Scale score Given 08/11/2025 9:41 AM RADIOLOGICAL ENGINEER 1 mg Given 08/11/2025 7:42 AM RADIOLOGICAL ENGINEER 1 mg Given 08/10/2025 6:16 AM RADIOLOGICAL ENGINEER 1 mg LORazepam (ATIVAN) tablet 1 mg 1 mg, oral, Every 2 hours PRN, other, Score between 6 and 12 on Alcohol Withdrawl Assessment, Starting on 08/09/25 at 0408, For 6 days, HOLD for any status indicating over sedation including the following: drifts off to sleep during conversation, minimal or no response to verbal or physical stimulation, or respiratory rate less than 10 breaths per minute., Indications: Alcohol Withdrawal Assessment Scale scoreIndications:Alcohol Withdrawal Assessment Scale score Given 08/11/2025 1:40 AM RADIOLOGICAL ENGINEER 1 mg Given 08/10/2025 11:06 PM RADIOLOGICAL ENGINEER 1 mg Given 08/10/2025 9:17 PM RADIOLOGICAL ENGINEER 1 mg LORazepam (ATIVAN) tablet 1 mg 1 mg, oral, Every 1 hour PRN, anxiety, Score between 13 and 18 on Alcohol Withdrawl Assessment, Starting on 08/09/25 at 0408, For 6 days, HOLD for any status indicating over sedation including the following: drifts off to sleep during conversation, minimal or no response to verbal or physical stimulation, or respiratory rate less than 10 breaths per minute., Indications: Alcohol Withdrawal Assessment Scale scoreIndications:Alcohol Withdrawal Assessment Scale score magnesium sulfate 4 g/100 mL in water (premix) 4 g 4 g, intravenous, at 66.7 mL/hr, Administer over 90 Minutes, Once, On 08/09/25 at 0054, For 1 dose New Bag 08/09/2025 3:37 AM RADIOLOGICAL ENGINEER 4 g 66.7 mL/hr naltrexone (DEPADE) tablet 50 mg 50 mg, oral, Daily, First dose (after last modification) on 08/09/25 at 0506 Given 08/11/2025 7:42 AM RADIOLOGICAL ENGINEER 50 mg Given 08/10/2025 7:49 AM RADIOLOGICAL ENGINEER 50 mg NIFEdipine (PROCARDIA XL/ADALAT CC) extended release tablet 60 mg 60 mg, oral, Daily, First dose on 08/09/25 at 0900, Do not crush, chew, cut, dissolve, open or otherwise manipulate tablet/capsule. Given 08/11/2025 7:42 AM RADIOLOGICAL ENGINEER 60 mg Given 08/10/2025 7:49 AM RADIOLOGICAL ENGINEER 60 mg Given 08/09/2025 9:40 AM RADIOLOGICAL ENGINEER 60 mg ondansetron (ZOFRAN) injection 4 mg 4 mg, intravenous, Administer over 2 Minutes, Every 6 hours PRN, vomiting, nausea, Starting on 08/09/25 at 1221 Given 08/09/2025 12:28 PM RADIOLOGICAL ENGINEER 4 mg pantoprazole (PROTONIX) 40 mg in sodium chloride 0.9% 10 mL IV Syringe 40 mg, intravenous, at 300 mL/hr, Administer over 2 Minutes, Daily, First dose on Sun08/09/25 at 1300, For IV administration, reconstitute 40 mg vial with 10 mL sodium chloride 0.9% for injection for a final concentration of 4 mg/mL, Indications: Treatment of Non-Bleeding Gastric DisorderIndications:Treatment of Non-Bleeding Gastric Disorder Given 08/10/2025 7:48 AM RADIOLOGICAL ENGINEER 40 mg 3 00 mL/hr Given 08/09/2025 12:47 PM RADIOLOGICAL ENGINEER 40 mg 300 mL/hr pantoprazole DR (PROTONIX) extended release tablet 40 mg 40 mg, oral, Daily, First dose on 08/09/25 at 0900, Do not crush, chew, cut, dissolve, open or otherwise manipulate tablet/capsule., Indications: Treatment of Non-Bleeding Gastric DisorderIndications:Treatment of Non-Bleeding Gastric Disorder Given 08/09/2025 9:40 AM RADIOLOGICAL ENGINEER [address] (PROTONIX) extended release tablet 40 mg 40 mg, oral, Daily, First dose on 08/11/25 at 0900, Do not crush, chew, cut, dissolve, open or otherwise manipulate tablet/capsule., Indications: Treatment of Non-Bleeding Gastric DisorderIndications:Treatment of Non-Bleeding Gastric Disorder Given 08/11/2025 7:42 AM RADIOLOGICAL ENGINEER 40 mg PHENobarbital 478 mg in sodium chloride 0.9% 100 mL IVPB 478 mg (rounded from 478.5 mg = 5 mg/kg 95.7 kg), intravenous, at 227.36 mL/hr, Administer over 30 Minutes, Once, On 08/09/25 at 0054, For 1 dose, Indications: et OH withdrawalIndications:et OH withdrawal New Bag 08/09/2025 2:21 AM RADIOLOGICAL ENGINEER 478 mg 227.36 mL/hr PHENobarbital injection 130 mg 130 mg, intravenous, Administer over 5 Minutes, Once, On 08/09/25 at 0404, For 1 dose, Indications: etoh w/drawalIndications:etoh w/drawal Given 08/09/2025 4:28 AM RADIOLOGICAL ENGINEER 130 mg QUEtiapine (SEROquel) tablet 400 mg 400 mg, oral, Nightly, First dose on 08/09/25 at 2100 Given 08/10/2025 9:17 PM RADIOLOGICAL ENGINEER 400 mg Given 08/09/2025 8:41 PM RADIOLOGICAL ENGINEER 400 mg thiamine (VITAMIN B-1) tablet 100 mg 100 mg, oral, Daily, First dose on 08/09/25 at 0900, For 5 days, Indications: Thiamine DeficiencyIndications:Thiamine Deficiency Given 08/11/2025 7:43 AM RADIOLOGICAL ENGINEER 100 mg Given 08/10/2025 7:49 AM RADIOLOGICAL ENGINEER 100 mg Given 08/09/2025 9:40 AM RADIOLOGICAL ENGINEER 100 mg thiamine in sodium chloride 0.9% (premix) 500 mg 500 mg, intravenous, at 210 mL/hr, Administer over 30 Minutes, Once, On 08/09/25 at 0130, For 1 dose, Indications: Nutritional DeficiencyIndications:Nutritional Deficiency Given 08/09/2025 2:54 AM RADIOLOGICAL ENGINEER 500 mg 210 mL/hr documented in this encounter Discontinued Medications Medication Sig Discontinue Reason Start Date End Da te omeprazole (PriLOSEC) 20 mg capsule Take 1 capsule (20 mg total) by mouth daily 08/11/2025 traZODone (DESYREL) 100 mg tablet Take 1 tablet (100 mg total) by mouth nightly Stop Taking at Discharge 08/11/2025 folic acid (FOLVITE) 1 mg tablet Take 1 tablet (1 mg total) by mouth daily Stop Taking at Discharge 08/11/2025 documented as of this encounter Active and Recently Administered Medications Times are shown in RADIOLOGICAL ENGINEER. Scheduled Medication Order 08/09/2025 08/10/2025 08/11/2025 buPROPion XL (WELLBUTRIN XL) 24 hour tablet 300 mg 300 mg, oral, Daily, First dose on 08/09/25 at 0900, Do not crush, chew, cut, dissolve, open or otherwise manipulate tablet/capsule. 0940 (Given - Provider: Ruby Grider RN) 0749 (Given - Provider: Ruby Grider RN) 0742 (Given - Provider: Ruby Grider RN) carvediloL (COREG) tablet 25 mg 25 mg, oral, 2 times daily with meals (bkfst, dinner), First dose (after last modification) on 08/09/25 at 0506 0554 (Given - Provider: Indu Sam RN)1736 (Given - Provider: Ruby Grider RN) 0748 (Given - Provider: Ruby Grider RN)1630 (Given - Provider: Ruby Grider RN) 0743 (Given - Provider: Ruby Grider RN) enoxaparin (LOVENOX) syringe 40 mg 40 mg, subcutaneous, Daily (for enoxaparin), First dose on 08/09/25 at 2100, Indications: Deep Vein Thrombosis Prevention 2040 (Given - Provider: Candida Avila RN) 2116 (Not Given - Provider: Geo Birmingham RN - Reason: Patient/family refused) folic acid (FOLVITE) tablet 1 mg (COMPLETED) 1 mg, oral, Daily, First dose on 08/09/25 at 0900, For 3 days, Each tablet contains 1 mg of folic acid (1.67 mg DFE)., Indications: Folate Deficiency 0940 (Given - Provider: Ruby Grider RN) 0749 (Given - Provider: Ruby Grider RN) 0743 (Given - Provider: Ruby Grider RN) Lactated Ringer's (LR) bolus 1,000 mL (COMPLETED) 1,000 mL, intravenous, at 999 mL/hr, Administer over 1 Hours, Once, On 08/09/25 at 0054, For 1 dose 0221 (New Bag - Provider: Indu Sam, QIANA)0334 (Stopped - Provider: Indu Sam, QIANA) magnesium sulfate 4 g/100 mL in water (premix) 4 g (CANCELED) 4 g, intravenous, at 66.7 mL/hr, Administer over 90 Minutes, Once, On 08/09/25 at 0054, For 1 dose 0337 (New Bag - Provider: Indu Sam, QIANA)0500 (Stopped - Provider: Indu Sam, QIANA) naltrexone (DEPADE) tablet 50 mg 50 mg, oral, Daily, First dose (after last modification) on 08/09/25 at 0506 0749 (Given - Provider: Ruby Grider RN)1917 (Canceled Entry - Provider: Geo Birmingham RN) 0742 (Given - Provider: Ruby Grider RN) NIFEdipine (PROCARDIA XL/ADALAT CC) extended release tablet 60 mg 60 mg, oral, Daily, First dose on 08/09/25 at 0900, Do not crush, chew, cut, dissolve, open or otherwise manipulate tablet/capsule. 0940 (Given - Provider: Ruby Grider RN) 0749 (Given - Provider: Ruby Grider RN) 0742 (Given - Provider: Ruby Grider RN) pantoprazole (PROTONIX) 40 mg in sodium chloride 0.9% 10 mL IV Syringe (CANCELED) 40 mg, intravenous, at 300 mL/hr, Administer over 2 Minutes, Daily, First dose on 08/09/25 at 1300, For IV administration, reconstitute 40 mg vial with 10 mL sodium chloride 0.9% for injection for a final concentration of 4 mg/mL, Indications: Treatment of Non-Bleeding Gastric Disorder 1247 (Given - Provider: Ruby Grider RN) 0748 (Given - Provider: Ruby Grider RN) pantoprazole DR (PROTONIX) extended release tablet 40 mg (CANCELED) 40 mg, oral, Daily, First dose on 08/09/25 at 0900, Do not crush, chew, cut, dissolve, open or otherwise manipulate tablet/capsule., Indications: Treatment of Non-Bleeding Gastric Disorder 0940 (Given - Provider: Ruby Grider, RN) pantoprazole DR (PROTONIX) extended release tablet 40 mg 40 mg, oral, Daily, First dose on Sun08/11/25 at 0900, Do not crush, chew, cut, dissolve, open or otherwise manipulate tablet/capsule., Indications: Treatment of Non-Bleeding Gastric Disorder 0742 (Given - Provider: Ruby Grider, RN) PHENobarbital 478 mg in sodium chloride 0.9% 100 mL IVPB (COMPLETED) 478 mg (rounded from 478.5 mg = 5 mg/kg 95.7 kg), intravenous, at 227.36 mL/hr, Administer over 30 Minutes, Once, On 08/09/25 at 0054, For 1 dose, Indications: et OH withdrawal 0221 (New Bag - Provider: Indu Sam, RN)0252 (Stopped - Provider: Indu Sam, RN) PHENobarbital injection 130 mg (COMPLETED) 130 mg, intravenous, Administer over 5 Minutes, Once, On 08/09/25 at 0404, For 1 dose, Indications: etoh w/drawal 0428 (Given - Provider: Indu Sam, RN) QUEtiapine (SEROquel) tablet 400 mg 400 mg, oral, Nightly, First dose on 08/09/25 at 2100 2040 (Given - Provider: Candida Avila, RN) 2116 (Given - Provider: Goe Birmingham, QIANA) thiamine (VITAMIN B-1) tablet 100 mg 100 mg, oral, Daily, First dose on 08/09/25 at 0900, For 5 days, Indications: Thiamine Deficiency 0940 (Given - Provider: Ruby Grider, RN) 0749 (Given - Provider: Ruby Grider, RN) 0743 (Given - Provider: Ruby Grider, RN) thiamine in sodium chloride 0.9% (premix) 500 mg (COMPLETED) 500 mg, intravenous, at 210 mL/hr, Administer over 30 Minutes, Once, On 08/09/25 at 0130, For 1 dose, Indications: Nutritional Deficiency 0254 (Given - Provider: Indu Sam, QIANA) Continuous Medication Order 08/09/2025 08/10/2025 08/11/2025 dextrose 5% and sodium chloride 0.9% infusion (premix) () 75 mL/hr, intravenous, Continuous, Starting on 08/09/25 at 0410, For 24 hours 0428 (New Bag - Provider: Indu Sam RN)1418 (New Bag - Provider: Ruby Grider RN) PRN Medication Order 08/09/2025 08/10/2025 08/11/2025 cloNIDine (CATAPRES) tablet 0.1 mg 0.1 mg, oral, 3 times daily PRN, high blood pressure, bp>170/90, Starting on 08/09/25 at 1312 LORazepam (ATIVAN) 2 mg in sodium chloride 0.9% (further dilution required) injection(Linked Group 1) 2 mg, intravenous, Every 1 hour PRN, other, Score greater than 18 on Alcohol Withdrawl Assessmen, Starting on 08/09/25 at 0408, For 6 days, HOLD for any status indicating over sedation including the following: drifts off to sleep during conversation, minimal or no response to verbal or physical stimulation, or respiratory rate less than 10 breaths per minute. Withdraw ordered dose amount then dilute with equal volume of 0.9% sodium chloride. Administer total volume to patient. Do not exceed a rate of 2 mg/minute., Indications: Alcohol Withdrawal Assessment Scale score 0939 (See Alternative - Provider: Ruby Grider RN)1228 (See Alternative - Provider: Ruby Grider RN)1418 (Given - Provider: Ruby Grider RN)1736 (See Alternative - Provider: Ruby Grider RN)2332 (See Alternative - Provider: Candida Avila RN) 0333 (See Alternative - Provider: Candida Avila, RN)0616 (See Alternative - Provider: Candida Avila, RN)1031 (See Alternative - Provider: Ruby Grider RN)1521 (See Alternative - Provider: Ruby Grider RN)1854 (See Alternative - Provider: Ruby Grider RN)2117 (See Alternative - Provider: Geo Birmingham, QIANA)2306 (See Alternative - Provider: Geo Birmingham, QIANA) 0140 (See Alternative - Provider: Geo Birmingham, RN)0742 (See Alternative - Provider: Ruby Grider RN)0941 (See Alternative - Provider: Ruby Grider RN) LORazepam (ATIVAN) injection 2 mg(Linked Group 1) 2 mg, intramuscular, Every 1 hour PRN, other, Score greater than 18 on Alcohol Withdrawl Assessment, Starting on 08/09/25 at 0408, For 6 days, Administer IM if unable to provide IV Push.HOLD for any status indicating over sedation including the following: drifts off to sleep during conversation, minimal or no response to verbal or physical stimulation, or respiratory rate less than 10 breaths per minute. For IV administration, draw up ordered admin dose/volume, then dilute with equal volume of 0.9% sodium chloride and administer total volume to patient. Do not exceed a rate of 2 mg/minute., Indications: Alcohol Withdrawal Assessment Scale score 0939 (Given - Provider: Ruby Grider RN)1228 (Given - Provider: Ruby Grider RN)1418 (See Alternative - Provider: Ruby Grider RN)1736 (Given - Provider: Ruby Grider RN)2332 (See Alternative - Provider: Candida Avila RN) 0333 (See Alternative - Provider: Candida Avila RN)0616 (See Alternative - Provider: Candida Avila RN)1031 (Given - Provider: Ruby Grider RN)1521 (Given - Provider: Ruby Grider RN)1854 (Given - Provider: Ruby Grider RN)2117 (See Alternative - Provider: Geo Birmingham RN)2306 (See Alternative - Provider: Geo Birmingham RN) 0140 (See Alternative - Provider: Geo Birmingham, QIANA)0742 (See Alternative - Provider: Ruby Grider RN)0941 (See Alternative - Provider: Ruby Grider RN) LORazepam (ATIVAN) tablet 1 mg(Linked Group 1) 1 mg, oral, Every 4 hours PRN, other, Score between 3 and 5 on Alcohol Withdrawl Assessment, Starting on 08/09/25 at 0408, For 6 days, HOLD for any status indicating over sedation including the following: drifts off to sleep during conversation, minimal or no response to verbal or physical stimulation, or respiratory rate less than 10 breaths per minute., Indications: Alcohol Withdrawal Assessment Scale score 0939 (See Alternative - Provider: Ruby Grider RN)1228 (See Alternative - Provider: Ruby Grider RN)1418 (See Alternative - Provider: Ruby Grider RN)1736 (See Alternative - Provider: Ruby Grider RN)2332 (Given - Provider: Candida Avila RN) 0333 (See Alternative - Provider: Candida Avila RN)0616 (Given - Provider: Candida Avila RN)1031 (See Alternative - Provider: Ruby Grider RN)1521 (See Alternative - Provider: Ruby Grider RN)1854 (See Alternative - Provider: Ruby Grider RN)211 (See Alternative - Provider: Geo Birmingham RN)230 (See Alternative - Provider: Geo Birmingham, RN) 0140 (See Alternative - Provider: Geo Birmingham, RN)0742 (Given - Provider: Ruby Grider RN)0941 (Given - Provider: Ruby Grider RN) LORazepam (ATIVAN) tablet 1 mg(Linked Group 1) 1 mg, oral, Every 2 hours PRN, other, Score between 6 and 12 on Alcohol Withdrawl Assessment, Starting on 08/09/25 at 0408, For 6 days, HOLD for any status indicating over sedation including the following: drifts off to sleep during conversation, minimal or no response to verbal or physical stimulation, or respiratory rate less than 10 breaths per minute., Indications: Alcohol Withdrawal Assessment Scale score 0939 (See Alternative - Provider: Ruby Grider RN)1228 (See Alternative - Provider: Ruby Grider RN)1418 (See Alternative - Provider: Ruby Grider RN)1736 (See Alternative - Provider: Ruby Grider RN)2332 (See Alternative - Provider: Candida Avila RN) 0333 (Given - Provider: Candida Avila RN)0616 (See Alternative - Provider: Candida Avila RN)1031 (See Alternative - Provider: Ruby Grider RN)1521 (See Alternative - Provider: Ruby Grider RN)1854 (See Alternative - Provider: Ruby Grider RN)2117 (Given - Provider: Geo Birmingham RN)2306 (Given - Provider: Geo Birmingham, QIANA) 0140 (Given - Provider: Geo Birmingham, QIANA)0742 (See Alternative - Provider: Ruby Grider RN)0941 (See Alternative - Provider: Ruby Grider RN) LORazepam (ATIVAN) tablet 1 mg(Linked Group 1) 1 mg, oral, Every 1 hour PRN, anxiety, Score between 13 and 18 on Alcohol Withdrawl Assessment, Starting on 08/09/25 at 0408, For 6 days, HOLD for any status indicating over sedation including the following: drifts off to sleep during conversation, minimal or no response to verbal or physical stimulation, or respiratory rate less than 10 breaths per minute., Indications: Alcohol Withdrawal Assessment Scale score 0939 (See Alternative - Provider: Ruby Grider RN)1228 (See Alternative - Provider: Ruby Grider RN)1418 (See Alternative - Provider: Ruby Grider RN)1736 (See Alternative - Provider: Ruby Grider RN)2332 (See Alternative - Provider: Candida Avila RN) 0333 (See Alternative - Provider: Candida Avila RN)0616 (See Alternative - Provider: Candida Avila RN)1031 (See Alternative - Provider: Ruby Grider RN)1521 (See Alternative - Provider: Ruby Grider RN)1854 (See Alternative - Provider: Ruby Grider RN)2117 (See Alternative - Provider: Goe Birmingham RN)2306 (See Alternative - Provider: Geo Birmingham, QIANA) 0140 (See Alternative - Provider: Geo Birmingham, QIANA)0742 (See Alternative - Provider: Ruby Grider RN)0941 (See Alternative - Provider: Ruby Grider RN) ondansetron (ZOFRAN) injection 4 mg 4 mg, intravenous, Administer over 2 Minutes, Every 6 hours PRN, vomiting, nausea, Starting on 08/09/25 at 1221 1228 (Given - Provider: Ruby Grider RN) Linked Groups Order Group 1: LORazepam (ATIVAN) tablet 1 mgJump to med 1 mg, oral, Every 4 hours PRN, other, Score between 3 and 5 on Alcohol Withdrawl Assessment, Starting on 08/09/25 at 0408, For 6 days, HOLD for any status indicating over sedation including the following: drifts off to sleep during conversation, minimal or no response to verbal or physical stimulation, or respiratory rate less than 10 breaths per minute., Indications: Alcohol Withdrawal Assessment Scale score Or LORazepam (ATIVAN) tablet 1 mgJump to med 1 mg, oral, Every 2 hours PRN, other, Score between 6 and 12 on Alcohol Withdrawl Assessment, Starting on 08/09/25 at 0408, For 6 days, HOLD for any status indicating over sedation including the following: drifts off to sleep during conversation, minimal or no response to verbal or physical stimulation, or respiratory rate less than 10 breaths per minute., Indications: Alcohol Withdrawal Assessment Scale score Or LORazepam (ATIVAN) tablet 1 mgJump to med 1 mg, oral, Every 1 hour PRN, anxiety, Score between 13 and 18 on Alcohol Withdrawl Assessment, Starting on 08/09/25 at 0408, For 6 days, HOLD for any status indicating over sedation including the following: drifts off to sleep during conversation, minimal or no response to verbal or physical stimulation, or respiratory rate less than 10 breaths per minute., Indications: Alcohol Withdrawal Assessment Scale score Or LORazepam (ATIVAN) 2 mg in sodium chloride 0.9% (further dilution required) injectionJump to med 2 mg, intravenous, Every 1 hour PRN, other, Score greater than 18 on Alcohol Withdrawl Assessmen, Starting on 08/09/25 at 0408, For 6 days, HOLD for any status indicating over sedation including the following: drifts off to sleep during conversation, minimal or no response to verbal or physical stimulation, or respiratory rate less than 10 breaths per minute. Withdraw ordered dose amount then dilute with equal volume of 0.9% sodium chloride. Administer total volume to patient. Do not exceed a rate of 2 mg/minute., Indications: Alcohol Withdrawal Assessment Scale score Or LORazepam (ATIVAN) injection 2 mgJump to med 2 mg, intramuscular, Every 1 hour PRN, other, Score greater than 18 on Alcohol Withdrawl Assessment, Starting on 08/09/25 at 0408, For 6 days, Administer IM if unable to provide IV Push.HOLD for any status indicating over sedation including the following: drifts off to sleep during conversation, minimal or no response to verbal or physical stimulation, or respiratory rate less than 10 breaths per minute. For IV administration, draw up ordered admin dose/volume, then dilute with equal volume of 0.9% sodium chloride and administer total volume to patient. Do not exceed a rate of 2 mg/minute., Indications: Alcohol Withdrawal Assessment Scale score documented in this encounter Orders Medications Ordered That Shawn ht Not Have Been Administered Count Last Ordered Date First Ordered Date carvediloL (COREG) tablet 25 mg 1 cloNIDine (CATAPRES) tablet 0.1 mg 1 2024 LORazepam (ATIVAN) tablet 1 mg 1 08/09/2025 naltrexone (DEPADE) tablet 50 mg 1 08/09/20 25 Nursing Count Last Ordered Date First Orde red Date DISCHARGE CALL PROVIDER 7 08/11/2025 DISCHARGE INSTRUCTIONS 1 08/11/2025 FOLLOW UP WITH ESTABLISHED PROVIDER 1 08/11 ACTIVITY 1 08/09/2025 NOTIFY PROVIDER (SPECIFY) 2 08/09/2025 NURSING COMMUNICATION 1 08/09/2025 WEIGH PATIENT 1 08/09/2025 Admission Count Last Ordered Date First Orde red Date ADMIT TO INPATIENT 1 08/09/2025 Discharge Count Last Ordered Date First Orde red Date DISCHARGE PATIENT 1 08/11/2025 documented in this encounter Care Teams Face Hardener Relationship Specialty Start Date End Date Weston Mantilla DO PCP - General Family Medicine 09/03/23 Kimberli Collins DPM [facility] [place] [address] Consulting Physician Foot and Ankle Surg 09/14/23 documented as of this encounter
[2025-08-12 11:20] VITALS: BP 130/93; PULSE 107; RESP 20; TEMP 37; O2SAT 100
--- NOTE | 2025-08-12 11:20 | ECG_ITS ---
Test Date: 2025-08-12 11:31:59 Measurements Intervals [place] Rate: 101 P: 33 NH: 153 QRS: -11 QRSD: 94 T: 30 QT: 324 QTc: 422 Interpretive Statements SINUS TACHYCARDIA BORDERLINE ECG Compared to ECG 01/21/2025 08:08:33 HEART RATE HAS INCREASED Electronically Signed On 08-12-2025 21:32:32 FAMILY PRESERVATION CASEWORKER by Ed Kulkarni D.O.
--- OUTSIDE RECORDS SUMMARY | 2025-08-12 11:35 | XMS_ITS | Encounter Summary ---
Author Organization [facility] Healthcare Address [address] [place] [address] Care Team Providers Care Health Support Specialist Name Role Phone Weston Mantilla Primary Care Provide r Kimberli CollinsM Unavailable [phone] Melanie Ashton RN Unavailable [phone] Encounter Details Date Type Department Care Team (Late st Contact Info) Description 12/26/2024 [facility] Post Discharge Follow up phone call [facility] [address] [place] [address] Alannah Mack Social History Tobacco Use Types Packs/Day Years Used Date Smoking Tobacco: Former Cigarettes Smokeless Tobacco: Current Chew Alcohol Use Standard Drinks/Week Comments Yes 0 (1 standard drink = 0.6 oz pur e alcohol) luis [facility] Utilities Answer Date Recorded In the past 12 months has [employer], gas, oil, or water [employer] threatened to shut off services in your home? No 12/18/2024 Social Connection and Isolation Panel Answer Date Recorded In a typical week, how many times do you talk on the phone with family, friends, or neighbors? More than three times a week 12/18/2024 How often do you get togethe r with friends or relatives? More than three times a week 12/18/2024 How often do you attend [facility] or jain services? Never 12/18/2024 Do you belong to any clubs o r organizations such as anabaptism groups, unions, fraternal or athletic groups, or [...] any time in the past 12 [facility], were you homeless or living in a alf (including now)? No 12/18/2024 Personal Safety Answer Date Recorded Have you ever been in or are you currently in a harmful physical or emotional relationship or is someone making you feel afraid or unsafe? 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 Comment:8th floor Sept 04/28/2025 04/28/2025 04/30/2025 9:0 3 AM CDT Ring Surve[facility]: [facility] Comment:4th Floor May 2025 05/25/2025 05/25/2025 05/27/2025 10:19 AM CDT documented as of this encounter Care Teams Health Support Specialist Relationship Specialty Start Date End Date Weston Mantilla DO PCP - General Family Medicine 09/03/23 Kimberli Collins, DPM [address] [place] [id number] Consulting Physician Foot and Ankle Surg 09/14/23 Melanie Ashton, RN [phone] [address] [facility] Outpatient Director Of Oncology 07/20/25 08/06/25 documented as of this encounter
--- OUTSIDE RECORDS SUMMARY | 2025-08-12 11:35 | XMS_ITS | Clinical Summary ---
Author Organization [facility] [place] [address] Address [address] [place] [address] Care Team Providers Care Golf Club Assembler Name Role Phone Weston Mantilla DO Primary Care Provide r Kimberli Collins DPM Unavailable [phone] Allergies Active Allergy Reactions Criticality Noted Date Comments Penicillin Hives Medium 09/06/2023 Medications buPROPion XL (WELLBUTRIN XL) 300 mg 24 hr tablet Take 1 tablet (300 mg total) by mouth daily Active QUEtiapine (SEROquel) 400 mg tablet Take 1 tablet (400 mg total) by mouth nightly Active thiamine (VITAMIN B1) 100 mg tablet Take 1 tablet (100 mg total) by mouth daily Active carvediloL (COREG) 25 mg tablet Take 1 tablet (25 mg total) by mouth 2 (two) times a day with meals 60 tablet 11 025 2025 Active NIFEdipine (NIFEdipine XL) 60 mg 24 hr tablet Take 1 tablet (60 mg total) by mouth daily 30 tablet 025 2025 Active testosterone cypionate (DEPO-TESTOTERONE ) 100 mg/mL injection Inject 1.5 mL (150 mg total) into the muscle as instructed once a week Wednesdays Active carboxymethylcell ulose (REFRESH TEARS) 0.5 % ophthalmic solution Administer 1 drop into both eyes 4 (four) times a day as needed (dry eyes) Active naltrexone (DEPADE) 50 mg tablet Take 1 tablet (50 mg total) by mouth daily 2025 Active omeprazole (PriLOSEC) 20 mg capsule Take 1 capsule (20 mg total) by mouth daily 30 capsule 1 2025 Active hydrOXYzine (ATARAX) 50 mg tablet Take 1 tablet (50 mg total) by mouth 3 (three) times a day as needed for itching 60 tablet Active traZODone (DESYREL) 100 mg tablet Take 1 tablet (100 mg total) by mouth nightly 2024 Discontinued(S top Taking at Discharge) multivit-min/foli c/vit K/lycop (MEN'S MULTIVITAMIN ORAL) Take 1 tablet by mouth daily 2024 Discontinued(D uplicate order) folic acid (FOLVITE) 1 mg tablet Take 1 tablet (1 mg total) by mouth daily 2024 Discontinued(S top Taking at Discharge) omeprazole (PriLOSEC) 20 mg capsule Take 1 capsule (20 mg total) by mouth daily 2024 Discontinued magnesium oxide (MAG-OX) 250 mg (150.8 mg elemental) tablet Take 1 tablet (250 mg total) by mouth daily 2024 Discontinued busPIRone (BUSPAR) 10 mg tabletIndications :Generalized Anxiety Disorder Take 0.5 tablets (5 mg total) by mouth 3 (three) times a day as needed (anxiety) 2024 Discontinued(P atient Reported) diclofenac sodium (VOLTAREN) 1 % gel Apply 4 g topically 4 (four) times a day as needed 2024 Discontinued testosterone cypionate, bulk, 100 % powder Inject into the muscle as instructed once a week Sunday 0 2024 Discontinued carboxymethylcell ulose (REFRESH TEARS) 0.5 % ophthalmic solution Administer 1 drop into both eyes 4 (four) times a day as needed (dry eyes) 2024 Discontinued olopatadine (PATADAY) 0.2 % ophthalmic solutionIndicatio ns:Allergic Conjunctivitis Administer 1 drop into both eyes daily as needed for allergies 2024 Discontinued multivit thdyoimo-paqn-PN- calcium (THERA-M) 9 mg iron-400 mcg tablet Take 1 tablet by mouth daily 30 tablet 11 025 2024 Discontinued Active Problems Problem Noted Date Diagnosed Date Hepatic steatosis 07/16/2025 Assessment & Plan (07/18/2025 10:56 AM SLACK LINE YARDER): 55M PMH of AUD with frequent admissions for alcohol withdrawal and withdrawal seizures twice in the past. Reported history of drinking a fifth of vodka per day, sometimes 30 pack of beer in 24 hours. Hx of recurrent hospital admission for withdrawal most recently discharge 05/26 from [facility]. Patient reports last drink was on 07/13. Hepatic steatosis related to chronic alcohol use. Ethanol 282 and AWAS 15 in ED. He was loaded with phenobarb in the ED and given Diazepam PRN and started on AWAS. Symptoms improving with symptomatic control. He is still using some ativan to control symptoms, most recently at 0900 today. - AWAS - Continue naltrexone 50 mg daily - Continue thiamine 100 mg daily and folate 1 mg daily - SW consult and chemical dependency consult seen patient Assessment & Plan (07/17/2025 2:00 PM SLACK LINE YARDER): 55M PMH of AUD with frequent admissions for alcohol withdrawal and withdrawal seizures twice in the past. Reported history of drinking a fifth of vodka per day, sometimes 30 pack of beer in 24 hours. Hx of recurrent hospital admission for withdrawal most recently discharge 05/26 from [facility]. Patient reports last drink was 07/15 9am. Hepatic steatosis related to chronic alcohol use. Ethanol 282 and AWAS 15 in ED. He was loadedd with phenobarb in the ED and given Diazepam PRN. Later started on ativan (lorazepam). - presented with alcoholic AGMA, now resolved. Hemoconcentration, likely from dehydration, and now improved since s/p 2x IVF bolus - UDS negative Plan: - continue CIWA Ativan protocol - VS q4h - thiamine and folate supplementation: thiamine 100 mg daily and folate 1 mg daily - SW consult and chemical dependency consult seen patient - naltrexone 50 mg daily (open to starting again) - Mg>2, Phos 3, K>4 to reduce seizure risk - seizure precautions - CBC, CMP daily Assessment & Plan (07/16/2025 12:19 PM SLACK LINE YARDER): 55M PMH of AUD with frequent admissions for alcohol withdrawal and withdrawal seizures twice in the past. Reported history of drinking a fifth of vodka per day, sometimes 30 pack of beer in 24 hours. Hx of recurrent hospital admission for withdrawal most recently discharge 05/26 from [facility]. Patient reports last drink was 07/15 9am. Hepatic steatosis related to chronic alcohol use. Ethanol 282 and AWAS 15 in ED. He was loadedd with phenobarb in the ED and given Diazepam PRN. Later started on ativan (lorazepam). - presented with alcoholic AGMA, now resolved - patient presented with leukocytosis and hemoconcentration, likely from dehydration, and now improved since ED IVF bolus Plan: - continue CIWA Ativan protocol - VS q4h - UDS - IV fluid bolus due to dehydration - thiamine and folate supplementation: thiamine 100 mg daily and folate 1 mg daily - seizure precautions - CBC, CMP daily - Mg>2, Phos 3, K>4 to reduce seizure risk - SW consult and chemical dependency consult - patient open to starting Naltrexone; he tried it before with some benefit and is interested in starting again. HTN (hypertension) 07/15/2025 Assessment & Plan (07/18/2025 10:56 AM SLACK LINE YARDER): Uncontrolled due medication non-adherence - Continue home Coreg and nifedipine Assessment & Plan (07/17/2025 2:00 PM SLACK LINE YARDER): Uncontrolled due medication non-adherence - continue home Coreg and nifedipine Assessment & Plan (07/16/2025 12:19 PM SLACK LINE YARDER): Uncontrolled due medication non-adherence - On Coreg and Nifedipine at home, continue Assessment & Plan (07/15/2025 11:00 PM SLACK LINE YARDER): Uncontrolled due medication non-adherence On Coreg and Nifedipine at home, continue Anxiety 07/15/2025 Assessment & Plan (07/18/2025 10:56 AM SLACK LINE YARDER): Home meds Wellbutrin, Seroquel and Trazodone. Patient aware of Wellbutrin lowering seizure threshold ISO previous withdrawal seizures and prefers to continue. Previously tried zoloft but did led to significant changes in emotions and was stopped. Will defer management to outpatient - Continue Seroquel and Trazodone Assessment & Plan (07/17/2025 2:00 PM SLACK LINE YARDER): Home meds Wellbutrin, Seroquel and Trazodone. Will discontinue Wellbutrin given hx of withdrawal seizures and it lowers seizure thresholds - Continue Seroquel and Trazodone - consider starting SSRI at PCP visit Assessment & Plan (07/16/2025 12:19 PM SLACK LINE YARDER): On Wellbutrin, Seroquel and Trazodone at home Will discontinue Wellbutrin given hx of withdrawal seizures and it lowers seizure thresholds - Continue Seroquel and Trazodone - consider starting SSRI Assessment & Plan (07/15/2025 11:00 PM SLACK LINE YARDER): On Wellbutrin, Seroquel and Trazodone at home Will hold Wellbutrin given hx of withdrawal seizures Continue Seroquel and Trazodone GERD (gastroesophageal reflux disease) Assessment & Plan (07/18/2025 10:56 AM SLACK LINE YARDER): - Continue Pantoprazole Assessment & Plan (07/17/2025 2:00 PM SLACK LINE YARDER): Pantoprazole Assessment & Plan (07/16/2025 10:47 AM SLACK LINE YARDER): Pantoprazole Assessment & Plan (07/15/2025 11:00 PM SLACK LINE YARDER): Pantoprazole Alcohol withdrawal syndrome without complication 04/22/2025 Assessment & Plan (07/18/2025 10:56 AM SLACK LINE YARDER): 55M PMH of AUD with frequent admissions for alcohol withdrawal and withdrawal seizures twice in the past. Reported history of drinking a fifth of vodka per day, sometimes 30 pack of beer in 24 hours. Hx of recurrent hospital admission for withdrawal most recently discharge 05/26 from [facility]. Patient reports last drink was on 07/13. Hepatic steatosis related to chronic alcohol use. Ethanol 282 and AWAS 15 in ED. He was loaded with phenobarb in the ED and given Diazepam PRN and started on AWAS. Symptoms improving with symptomatic control. He is still using some ativan to control symptoms, most recently at 0900 today. - AWAS - Continue naltrexone 50 mg daily - Continue thiamine 100 mg daily and folate 1 mg daily - SW consult and chemical dependency consult seen patient Assessment & Plan (07/17/2025 2:00 PM SLACK LINE YARDER): 55M PMH of AUD with frequent admissions for alcohol withdrawal and withdrawal seizures twice in the past. Reported history of drinking a fifth of vodka per day, sometimes 30 pack of beer in 24 hours. Hx of recurrent hospital admission for withdrawal most recently discharge 05/26 from [facility]. Patient reports last drink was 12/3 9am. Hepatic steatosis related to chronic alcohol use. Ethanol 282 and AWAS 15 in ED. He was loadedd with phenobarb in the ED and given Diazepam PRN. Later started on ativan (lorazepam). - presented with alcoholic AGMA, now resolved. Hemoconcentration, likely from dehydration, and now improved since s/p 2x IVF bolus - UDS negative Plan: - continue CIWA Ativan protocol - VS q4h - thiamine and folate supplementation: thiamine 100 mg daily and folate 1 mg daily - SW consult and chemical dependency consult seen patient - naltrexone 50 mg daily (open to starting again) - Mg>2, Phos 3, K>4 to reduce seizure risk - seizure precautions - CBC, CMP daily Assessment & Plan (07/16/2025 12:19 PM SLACK LINE YARDER): 55M PMH of AUD with frequent admissions for alcohol withdrawal and withdrawal seizures twice in the past. Reported history of drinking a fifth of vodka per day, sometimes 30 pack of beer in 24 hours. Hx of recurrent hospital admission for withdrawal most recently discharge 05/26 from [facility]. Patient reports last drink was 12/3 9am. Hepatic steatosis related to chronic alcohol use. Ethanol 282 and AWAS 15 in ED. He was loadedd with phenobarb in the ED and given Diazepam PRN. Later started on ativan (lorazepam). - presented with alcoholic AGMA, now resolved - patient presented with leukocytosis and hemoconcentration, likely from dehydration, and now improved since ED IVF bolus Plan: - continue CIWA Ativan protocol - VS q4h - UDS - IV fluid bolus due to dehydration - thiamine and folate supplementation: thiamine 100 mg daily and folate 1 mg daily - seizure precautions - CBC, CMP daily - Mg>2, Phos 3, K>4 to reduce seizure risk - SW consult and chemical dependency consult - patient open to starting Naltrexone; he tried it before with some benefit and is interested in starting again. Assessment & Plan (07/15/2025 11:00 PM SLACK LINE YARDER): 55 y.o. male with pmhx of AUD with frequent admissions for alcohol withdrawal and withdrawal seizures twice in the past. Hx of recurrent hospital admission for withdrawal most recently discharge 05/26 from [facility]. Ethanol 282 ROBBIN 15 in the ED Loaded with phenobarb in the ED and given Diazepam PRN. CIWA 11 currently. Plan: [facility] Ativan protocol Utox Thiamin and folate supplementation SW consult Consider Naltrexone on discharge as he tried it before with some benefit and is interested in starting again. Alcohol use disorder 01/30/2025 Assessment & Plan (07/18/2025 10:56 AM SLACK LINE YARDER): 55M PMH of AUD with frequent admissions for alcohol withdrawal and withdrawal seizures twice in the past. Reported history of drinking a fifth of vodka per day, sometimes 30 pack of beer in 24 hours. Hx of recurrent hospital admission for withdrawal most recently discharge 05/26 from [facility]. Patient reports last drink was on 07/13. Hepatic steatosis related to chronic alcohol use. Ethanol 282 and AWAS 15 in ED. He was loaded with phenobarb in the ED and given Diazepam PRN and started on AWAS. Symptoms improving with symptomatic control. He is still using some ativan to control symptoms, most recently at 0900 today. - AWAS - Continue naltrexone 50 mg daily - Continue thiamine 100 mg daily and folate 1 mg daily - SW consult and chemical dependency consult seen patient Assessment & Plan (07/17/2025 2:00 PM SLACK LINE YARDER): 55M PMH of AUD with frequent admissions for alcohol withdrawal and withdrawal seizures twice in the past. Reported history of drinking a fifth of vodka per day, sometimes 30 pack of beer in 24 hours. Hx of recurrent hospital admission for withdrawal most recently discharge 05/26 from [facility]. Patient reports last drink was 12/3 9am. Hepatic steatosis related to chronic alcohol use. Ethanol 282 and AWAS 15 in ED. He was loadedd with phenobarb in the ED and given Diazepam PRN. Later started on ativan (lorazepam). - presented with alcoholic AGMA, now resolved. Hemoconcentration, likely from dehydration, and now improved since s/p 2x IVF bolus - UDS negative Plan: - continue CIWA Ativan protocol - VS q4h - thiamine and folate supplementation: thiamine 100 mg daily and folate 1 mg daily - SW consult and chemical dependency consult seen patient - naltrexone 50 mg daily (open to starting again) - Mg>2, Phos 3, K>4 to reduce seizure risk - seizure precautions - CBC, CMP daily Assessment & Plan (07/16/2025 12:19 PM SLACK LINE YARDER): 55M PMH of AUD with frequent admissions for alcohol withdrawal and withdrawal seizures twice in the past. Reported history of drinking a fifth of vodka per day, sometimes 30 pack of beer in 24 hours. Hx of recurrent hospital admission for withdrawal most recently discharge 05/26 from [facility]. Patient reports last drink was 12/3 9am. Hepatic steatosis related to chronic alcohol use. Ethanol 282 and AWAS 15 in ED. He was loadedd with phenobarb in the ED and given Diazepam PRN. Later started on ativan (lorazepam). - presented with alcoholic AGMA, now resolved - patient presented with leukocytosis and hemoconcentration, likely from dehydration, and now improved since ED IVF bolus Plan: - continue CIWA Ativan protocol - VS q4h - UDS - IV fluid bolus due to dehydration - thiamine and folate supplementation: thiamine 100 mg daily and folate 1 mg daily - seizure precautions - CBC, CMP daily - Mg>2, Phos 3, K>4 to reduce seizure risk - SW consult and chemical dependency consult - patient open to starting Naltrexone; he tried it before with some benefit and is interested in starting again. Alcohol withdrawal seizure without complication 10/30/2024 Fall, initial encounter 10/22/2024 Alcohol withdrawal syndrome with complication Acquired hammer toe of right foot 08/28/2023 Encounters Date Type Department Care Team Description 08/09/2025 12:33 AM SLACK LINE YARDER - 08/11/2025 10:00 AM SLACK LINE YARDER Hospital Encounter [facility] [address] [place] [address] Bethel Bailey MD Mohamed, Riham Elamin Elkhalifa, MD Onaghise, Jude, MD Alcohol withdrawal syndrome without complication (HCC) (Primary Dx); Tachycardia Discharge Disposition: Discharge to home or self care 08/07/2025 [facility] Subsequent Outreach [facility] [address] [place] [phone] Melanie Ashton, RN 08/04/2025 [facility] Subsequent [facility]reach [facility] [address] [place] [phone] Melanie Ashton, RN 08/03/2025 [facility] Initial Outreach [facility] [address] [place] [phone] Melanie Ashton, RN 07/28/2025 [facility] Subsequent [facility]reach [facility] [address] [place] [phone] Melanie Ashton, RN 07/24/2025 [facility]OP[facility]CHAP Subsequent Outreach [facility] [address] [place] [phone] Melanie Ashton, RN 07/23/2025 [facility]OP/CHAP Subsequent Outreach [facility] [address] [place] [phone] Melanie Ashton, RN 07/21/2025 [facility] Initial [facility]reach [facility] [address] [place] [phone] Melanie Ashton, RN 07/20/2025 Telephone [facility] [address] [place] [phone] Terence Alessandra Nicolette, RP 07/20/2025 [facility]OP/CHAP Initial Outreach [facility] [address] [phone] Melanie Ashton RN 07/20/2025 SHOP/CHAP Initial Eligibility Review [facility] [id number] [place] [phone] Melanie Ashton RN 07/15/2025 7:05 PM SLACK LINE YARDER - 07/18/2025 1:06 PM SLACK LINE YARDER [place] [phone] Travis Castle MD Bakeer, Faris Adam, MD Daniel, Edward, MD PhD Alcohol withdrawal syndrome without complication (HCC) (Primary Dx) Discharge Disposition: Discharge to home or self care 05/29/2025 [facility] Post Discharge Follow up phone call [facility] [address] [place] [address] Taz Goldstein RN 05/27/2025 [facility] Post Discharge Follow up phone call [facility] [address] [place] [phone] Taz Goldstein, QIANA 05/19/2025 8:21 AM CDT - 05/26/2025 2:07 PM CDT Hospital Encounter [facility] [address] [place] [phone] Pernell Dueñas MD Karadjoff, Alison Marie, DO Thuo, Eric Mbugua, MD Rudomiotov, Olga, MD Alcohol withdrawal syndrome without complication (HCC) (Primary Dx); Dehydration Discharge Disposition: Discharge to home or self care from Last 3 Months Immunizations Immunization Administration Dates Next Due Influenza, Unspecified 04/13/2025 Surgical History Surgery Date Site/Laterality Comments APPENDECTOMY [...] Yes Alcohol Use Standard Drinks/Week Comments Yes 40 [...] any clubs o r organizations such as roman catholic groups, unions, fraternal or athletic groups, or [...] any time in the past 12 [facility], were you homeless or living in a chcf (including now)? No 12/18/2024 Social Connection and [...] you attend chur ch or holiness services? More than 4 times per year 08/10/2025 Do you belong to any clubs o r organizations such as roman catholic groups, unions, fraternal or athletic groups, or [...] any time in the past 12 m [facility], were you homeless or living in a chcf (including now)? No 08/10/2025 [facility] Utilities Answer Date Recorded In the past 12 months has [employer], gas, oil, or water company threatened to [...] on file Legal Sex Male 2:24 AM SLACK LINE YARDER Gender Identity Not on file Sexual Orientation Not on file Last Filed Vital Signs Vital Sign Reading Time Taken Comments Blood Pressure 168/108 08/11/2025 7:43 AM SLACK LINE YARDER rn notified Pulse 99 08/11/2025 7:43 AM SLACK LINE YARDER Temperature 36.6 C (97.9 F) 08/11/2025 7:43 AM SLACK LINE YARDER Respiratory Rate 18 08/11/2025 7:43 AM SLACK LINE YARDER Oxygen Saturation 100% 08/11/2025 7:4 3 AM SLACK LINE YARDER Inhaled Oxygen Concentration - - Weight 96.4 kg (212 lb 8.4 oz) 08/09/20 9:26 AM SLACK LINE YARDER Height 177.8 cm (5' 10) 08/09/2025 9:2 6 AM SLACK LINE YARDER Body Mass Index 30.49 08/09/2025 9:26 AM SLACK LINE YARDER Plan of Treatment Health Maintenance Due Date Last Done Comments Colon Cancer Screening-Colonoscopy 1970 Prostate Cancer Screening-PSA 1970 Regular Well Visit/Exam 18-64 1988 Covid-19 Vaccine (2024-2 6 season) 2025 09/04/2021, 10/19/2020, 09/27/2020 Depression Screening 07/15/2026 07/15/2025, 04/21/20 25 DTaP/Tdap/Td Vaccine (2 - Td or Tdap) 08/08/2031 08/08/2021 Hepatitis B Screening Completed 09/11/2013, 012 Pneumococcal vaccine <65 Completed 12/07/2022, 03/ Zoster Vaccine Completed 04/26/2023, 12/07/2022 Influenza Vaccine Completed 06/02/2025, , 05/04/2023, Additional history exists Hepatitis C Screening Completed 07/16/2025 Medical Devices Implanted Type Area Molding Process Technician Device Identifier Shelf Expiration Date Model / Serial / Lot [employer] Enio 1.1mm 152mm Trocar Point 2 End Style 1 Wire Fixation [id number] - [id number] - [id number] Implanted:Qty: 2 on 09/14/2023 by Kimberli Collins DPM at [facility] Explanted:03/13 (Quantity not on file) Right: [employer] 03/09/2032 [id number] / [id number] / [id number] Description:K-WIRE TO 3RD AN D 4TH TOES, RIGHT FOOT. COVERED WITH JERGREG BALLS Procedures Procedure Name Priority Date/Time Associated Diagnosis Comments XR CHEST PA LATERAL 2 VIEWS ED 08/09/2025 4:06 AM SLACK LINE YARDER ECG 12-LEAD Routine 08/09/2025 3:58 AM SLACK LINE YARDER EGFR STAT 08/09/2025 2:23 AM SLACK LINE YARDER DIFFERENTIAL AUTO STAT 08/09/2025 2:2 3 AM SLACK LINE YARDER ETHANOL Routine 08/09/2025 2:23 AM SLACK LINE YARDER APTT STAT 08/09/2025 2:23 AM SLACK LINE YARDER PROTIME-INR STAT 08/09/2025 2:23 AM SLACK LINE YARDER MAGNESIUM Routine 08/09/2025 2:23 AM SLACK LINE YARDER LIPASE STAT 08/09/2025 2:23 AM SLACK LINE YARDER HEPATIC FUNCTION PANEL STAT 08/09/2025 2:23 AM SLACK LINE YARDER BASIC METABOLIC PANEL STAT 08/09/2025 2:23 AM SLACK LINE YARDER CBC WITH AUTO DIFFERENTIAL STAT 08/09/2025 2:23 AM SLACK LINE YARDER MD CRITICAL CARE ILL/INJURED PATIENT INIT 30-74 MIN Routine 08/09/2025 1:32 AM SLACK LINE YARDER BENZODIAZEPINE CONFIRMATION BY MS STAT 08/09/2025 1:16 AM SLACK LINE YARDER DRUGS OF ABUSE SCREEN, URINE WITH REFLEX CONFIRMATION STAT 08/09/2025 1:16 AM SLACK LINE YARDER URINALYSIS AND REFLEX TO MICROSCOPIC AND CULTURE STAT 08/09/2025 1:16 AM SLACK LINE YARDER BASIC METABOLIC PANEL Timed 07/16/2025 8:15 PM SLACK LINE YARDER EGFR Timed 07/16/2025 8:15 PM SLACK LINE YARDER PHOSPHORUS Timed 07/16/2025 8:15 PM SLACK LINE YARDER MAGNESIUM Timed 07/16/2025 8:15 PM SLACK LINE YARDER CBC WITHOUT DIFFERENTIAL Timed 07/16/2025 8:15 PM SLACK LINE YARDER RPR Routine 07/16/2025 8:15 PM SLACK LINE YARDER HEPATITIS C ANTIBODY Routine 07/16/2025 8:15 PM SLACK LINE YARDER HEPATITIS B SURFACE ANTIGEN Routine 07/16/2025 8:15 PM SLACK LINE YARDER HIV 1/2 ANTIBODY PLUS P24 ANTIGEN Routine 07/16/2025 8:15 PM SLACK LINE YARDER DRUGS OF ABUSE SCREEN, URINE WITH REFLEX CONFIRMATION Routine 07/16/2025 1:18 PM SLACK LINE YARDER BENZODIAZEPINE CONFIRMATION BY MS Routine 07/16/2025 1:18 PM SLACK LINE YARDER N. GONORRHOEAE/C. TRACHOMATIS AMPLIFICATION Routine 07/16/2025 1:18 PM SLACK LINE YARDER EGFR STAT 07/16/2025 7:03 AM SLACK LINE YARDER PHOSPHORUS STAT 07/16/2025 7:03 AM SLACK LINE YARDER MAGNESIUM STAT 07/16/2025 7:03 AM SLACK LINE YARDER BASIC METABOLIC PANEL STAT 07/16/2025 7:03 AM SLACK LINE YARDER CBC WITHOUT DIFFERENTIAL Routine 07/16/2025 5:08 AM SLACK LINE YARDER XR CHEST PA LATERAL 2 VIEWS ED 07/15/2025 8:58 PM SLACK LINE YARDER EGFR STAT 07/15/2025 2:29 PM SLACK LINE YARDER ETHANOL STAT 07/15/2025 2:29 PM SLACK LINE YARDER DIFFERENTIAL AUTO STAT 07/15/2025 2:2 9 PM SLACK LINE YARDER LIPASE STAT 07/15/2025 2:29 PM SLACK LINE YARDER PHOSPHORUS STAT 07/15/2025 2:29 PM SLACK LINE YARDER MAGNESIUM STAT 07/15/2025 2:29 PM SLACK LINE YARDER COMPREHENSIVE METABOLIC PANEL STAT 07/15/2025 2:29 PM SLACK LINE YARDER CBC WITH AUTO DIFFERENTIAL STAT 07/15/2025 2:29 PM SLACK LINE YARDER ECG 12-LEAD STAT 07/15/2025 2:23 PM SLACK LINE YARDER FOLATE Add-On 05/26/2025 5:25 AM CDT VITAMIN B12 Add-On 05/26/2025 5:25 AM CDT PHOSPHORUS Routine 05/26/2025 5:25 AM CDT PHOSPHORUS Routine 05/25/2025 6:35 AM CDT PHOSPHORUS Routine 05/24/2025 6:38 AM CDT MAGNESIUM Routine 05/24/2025 6:38 AM CDT PHOSPHORUS Routine 05/23/2025 5:11 AM CDT MAGNESIUM Routine 05/23/2025 5:11 AM CDT EGFR Routine 05/22/2025 5:06 AM CDT PHOSPHORUS Routine 05/22/2025 5:06 AM CDT MAGNESIUM Routine 05/22/2025 5:06 AM CDT BASIC METABOLIC PANEL Routine 05/22/2025 5:06 AM CDT CBC WITHOUT DIFFERENTIAL Routine 05/22/2025 5:06 AM CDT EGFR Timed 05/21/2025 8:16 AM CDT CBC WITHOUT DIFFERENTIAL Routine 05/21/2025 8:16 AM CDT PHOSPHORUS Timed 05/21/2025 8:16 AM CDT MAGNESIUM Timed 05/21/2025 8:16 AM CDT BASIC METABOLIC PANEL Timed 05/21/2025 8:16 AM CDT CRITICAL CARE Routine 05/21/2025 7:33 AM CDT Alcohol withdrawal syndrome without complication (HCC) Dehydration CRITICAL CARE Routine 05/20/2025 9:21 PM CDT Alcohol withdrawal syndrome without complication (HCC) Dehydration EGFR Timed 05/20/2025 7:35 PM CDT PHOSPHORUS Timed 05/20/2025 7:35 PM CDT MAGNESIUM Timed 05/20/2025 7:35 PM CDT BASIC METABOLIC PANEL Timed 05/20/2025 7:35 PM CDT EGFR Timed 05/20/2025 11:58 AM CDT PHOSPHORUS Timed 05/20/2025 11:58 AM CDT MAGNESIUM Timed 05/20/2025 11:58 AM CDT BASIC METABOLIC PANEL Timed 05/20/2025 11:58 AM CDT CRITICAL CARE Routine 05/20/2025 7:02 AM CDT Alcohol withdrawal syndrome without complication (HCC) Dehydration EGFR Timed 05/20/2025 6:42 AM CDT PHOSPHORUS Timed 05/20/2025 6:42 AM CDT MAGNESIUM Timed 05/20/2025 6:42 AM CDT LACTATE Timed 05/20/2025 6:42 AM CDT BETA-HYDROXYBUTYRATE Timed 05/20/2025 6:42 AM CDT BASIC METABOLIC PANEL Timed 05/20/2025 6:42 AM CDT CALCIUM,IONIZED, WHOLE BLOOD Timed 05/20/2025 6:32 AM CDT XR CHEST 1 VIEW ED Urgent/IP Urgent 05/20/2025 4:03 AM CDT MD INSJ NON-TUNNELED CENTRAL VENOUS CATH AGE 5 YR/> Routine 05/20/2025 3:51 AM CDT Alcohol withdrawal syndrome without complication (HCC) EGFR STAT 05/19/2025 11:06 PM CDT PHOSPHORUS STAT 05/19/2025 11:06 PM CDT MAGNESIUM STAT 05/19/2025 11:06 PM CDT LACTATE STAT 05/19/2025 11:06 PM CDT BETA-HYDROXYBUTYRATE STAT 05/19/2025 11:06 PM CDT BASIC METABOLIC PANEL STAT 05/19/2025 11:06 PM CDT CRITICAL CARE Routine 05/19/2025 10:00 PM CDT Alcohol withdrawal syndrome without complication (HCC) POCT GLUCOSE DEVICE Routine 05/19/2025 3 :[address] CHEST ABDOMEN PELVIS W CONTRAST ED 05/19/2025 2:20 PM CDT LACTATE STAT 05/19/2025 1:03 PM CDT URINALYSIS, MICROSCOPIC ONLY STAT 05/19/2025 11:15 AM CDT TROPONIN T HIGH-SENSITIVITY 2-HOUR Timed 05/19/2025 11:15 AM CDT DRUGS OF ABUSE SCREEN, URINE WITHOUT CONFIRMATION STAT 05/19/2025 11:15 AM CDT URINALYSIS AND REFLEX TO MICROSCOPIC AND CULTURE STAT 05/19/2025 11:15 AM CDT EGFR STAT 05/19/2025 8:42 AM CDT DIFFERENTIAL AUTO STAT 05/19/2025 8:4 2 AM CDT BETA-HYDROXYBUTYRATE STAT 05/19/2025 8:42 AM CDT TROPONIN T HIGH-SENSITIVITY SERIES (BASELINE, 2HR, 4HR, 6HR) STAT 05/19/2025 8:42 AM CDT COMPREHENSIVE METABOLIC PANEL STAT 05/19/2025 8:42 AM CDT CBC WITH AUTO DIFFERENTIAL STAT 05/19/2025 8:42 AM CDT SEPSIS LACTATE WITH REFLEX STAT 05/19/2025 8:41 AM CDT ECG 12-LEAD STAT 05/19/2025 8:28 AM CDT from Last 3 Months Results * XR Chest PA Lateral 2 Views (08/09/2025 4:06 AM SLACK LINE YARDER) Anatomical Region Laterality Modality Body, Chest N/A Computed Radiogr aphy 08/09/2025 10:3 5 AM SLACK LINE YARDER Impressions 08/09/2025 10:35 AM SLACK LINE YARDER No active disease. Electronically signed by: Yumiko Smith M.D. Narrative 08/09/2025 10:35 AM SLACK LINE YARDER EXAMINATION: XR CHEST PA LATERAL 2 VIEWS [...] * ECG 12 lead (08/09/2025 3:58 AM SLACK LINE YARDER) 08/09/2025 3:58 AM SLACK LINE YARDER Narrative [facility] - 08/09/2025 7:44 AM SLACK LINE YARDER Vent Rate: 115 bpm RR Interval: 519 msec MD Interval: 158 msec QRS Duration: 88 msec QT Interval: 303 msec QTC Interval: 371 msec P-R-T [place]: 71 - 52 - 55 degrees IMPRESSION: SINUS TACHYCARDIA INDETERMINATE AXIS ABNORMAL RHYTHM ECG NO CHANGE FROM PREVIOUS TRACING NOTED Electronically Signed By: Mark Buchanan MD Bethel Bailey MD ECG ORDERABLES Final Result [facility] * eGFR (08/09/2025 2:23 AM SLACK LINE YARDER) eGFR >90 >=60 mL/min/1. 73 m2 Comment: [...] last reviewed 2021. Blood 08/09/2025 2:23 AM SLACK LINE YARDER 08/09/2025 2:28 AM SLACK LINE YARDER Bethel Bailey MD LAB BLOOD ORDERABLES Final Result [facility] [address] Department [place] [address] * (ABNORMAL) Differential, auto (08/09/2025 2:23 AM SLACK LINE YARDER) Neutrophil abs 12.76(H) 1.50 - 6.50 K/cumm Imm gran abs 0.09 0.00 - 0.10 K/cumm [facility] Lymphocyte abs 3.37(H) 0.80 - 3.30 K/cumm [facility] Monocyte abs 1.10(H) 0.20 - 0.80 K/cumm [facility] Eosinophil abs 0.11 0.00 - 0.50 K/cumm [facility] Basophil abs 0.13(H) 0.00 - 0.10 K/cumm [facility] Neutrophil pct 72.7 % [facility] Comment: Interpretive Data Percent cell [...] revised on 2017. Lymphocyte pct 19.2 % [facility] Comment: Interpretive Data Percent cell count reference [...] revised on 2017. Blood 08/09/2025 2:23 AM SLACK LINE YARDER 08/09/2025 2:28 AM SLACK LINE YARDER Bethel Bailey MD LAB BLOOD ORDERABLES Final Result [facility] [address] Department [place] [address] * (ABNORMAL) CBC with auto differential (08/09/2025 2:23 AM SLACK LINE YARDER) Pathologist [facility] [place] WBC 17.56(H) 3.80 - 9.90 K/cumm Hgb 16.7 13.0 - 17.5 g/dL [facility] Hct 52.1(H) 38.9 - 50.3 % [facility] Plt 401(H) 150 - 400 K/cumm [facility] MPV 10.0 9.1 - 12.3 fL [facility] RBC 5.52 4.30 - 5.80 M/cumm [facility] MCV 94.4 81.3 - 96.4 fL [facility] MCH 30.3 27.1 - 33.3 pg [facility] MCHC 32.1(L) 32.3 - 35.7 g/dL [facility] RDW CV 15.0(H) 11.1 - 14.9 % [facility] RDW SD 52.2(H) 35.7 - 48.1 fL [facility] NRBC abs 0.00 0.00 - 0.01 K/cumm [facility] Blood 08/09/2025 2:23 AM SLACK LINE YARDER 08/09/2025 2:28 AM SLACK LINE YARDER Bethel Bailey MD LAB BLOOD ORDERABLES Final Result Performing Organization Address [facility]/ZIP Co de Phone Number [facility] [address] Department [place] [address] * aPTT (08/09/2025 2:23 AM SLACK LINE YARDER) Pathologist [facility] [place] aPTT 26 26 - 38 sec Comment: Interpretive Data Heparin therapeutic range: 66.0 - 100.0 seconds. Range based on correlation with therapeutic heparin activity range of 0.3 - 0.7 Units/mL. Blood 08/09/2025 2:23 AM SLACK LINE YARDER 08/09/2025 2:28 AM SLACK LINE YARDER us Bethel Bailey MD LAB BLOOD ORDERABLES Final Result Performing Organization Address [facility] de Phone Number ETHAN [id number] [facility] [place] [address] * Protime-INR (08/09/2025 2:23 AM SLACK LINE YARDER) PT 10.5 10.2 - 13.5 sec INR 0.93 0.90 - 1.20 [facility] Comment: Interpretive data Oral anticoagulant therapeutic ranges: Venous thromboembolism prophylaxis or treatment: 2.0-3.0 CARDIOLOGY Standard range: 2.0-3.0 High-intensity range: 2.5-3.5 Refer to indication-specific guidelines for appropriate target ranges for prosthetic heart valve replacement. Current interpretive data was last revised on 2019. Blood 08/09/2025 2:23 AM SLACK LINE YARDER 08/09/2025 2:28 AM SLACK LINE YARDER Bethel Bailey MD LAB BLOOD ORDERABLES Final Result Performing Organization Address [facility] de Phone Number ALFREDOAYDE [address] [facility] [place] [address] * Magnesium (08/09/2025 2:23 AM SLACK LINE YARDER) Magnesium 1.9 1.4 - 2.5 mg/dL Blood 08/09/2025 2:23 AM SLACK LINE YARDER 08/09/2025 2:28 AM SLACK LINE YARDER Bethel Bailey MD LAB BLOOD ORDERABLES Final Result Performing Organization Address [facility] de Phone Number [facility] [address] [facility] [place] [address] * Lipase (08/09/2025 2:23 AM SLACK LINE YARDER) Lipase 24 10 - 99 Units/L Blood 08/09/2025 2:23 AM SLACK LINE YARDER 08/09/2025 2:28 AM SLACK LINE YARDER Bethel Bailey MD LAB BLOOD ORDERABLES Final Result Performing Organization Address [facility] Co de Phone Number [facility] [address] [address] [facility] [place] [address] * (ABNORMAL) Ethanol (08/09/2025 2:23 AM SLACK LINE YARDER) Ethanol 252(H) <=10 mg/dL Comment: Interpretive Data Legal limit of intoxication > or = 80 mg/dL Levels > or = 400 mg/dL are potentially TOXIC. Current interpretive data was last revised on 2018. Blood 08/09/2025 2:23 AM SLACK LINE YARDER 08/09/2025 2:28 AM SLACK LINE YARDER Bethel Bailey MD LAB BLOOD ORDERABLES Final Result Performing Organization Address [facility] de Phone Number [facility] [address] [facility] [address] [place], [place] [id number] * Hepatic function panel (08/09/2025 2:23 AM SLACK LINE YARDER) Bilirubin, total 0.2 0.1 - 1.2 mg/dL Bilirubin, direct <0.1 0.1 - 0.3 mg/dL [facility] Protein, pl 8.0 6.5 - 8.5 g/dL [facility] Albumin 4.7 3.5 - 5.0 g/dL [facility] Alk phos 76 40 - 130 Units/L [facility] ALT 18 7 - 55 Units/L [facility] AST 23 10 - 50 Units/L [facility] Blood 08/09/2025 2:23 AM SLACK LINE YARDER 08/09/2025 2:28 AM SLACK LINE YARDER Bethel Bailey MD LAB BLOOD ORDERABLES Final Result Performing Organization Address [facility] de Phone Number [facility] [address] [address] [facility] [place] [address] * (ABNORMAL) Basic metabolic panel (08/09/2025 2:23 AM SLACK LINE YARDER) Sodium 142 135 - 145 mmol/L Potassium, pl 4.5 3.3 - 4.9 mmol/L [facility] Chloride 100 97 - 110 mmol/L [facility] CO2 25 22 - 32 mmol/L [facility] Anion gap 17(H) 2 - 15 mmol/L [facility] BUN 3(L) 6 - 25 mg/dL [facility] Creatinine 0.65(L) 0.80 - 1.30 mg/dL [facility] Glucose 100 70 - 199 mg/dL [facility] Comment: Interpretive Data Fasting glucose >/= 126 [...] 2022. Calcium 9.4 8.5 - 10.3 mg/dL [facility] Blood 08/09/2025 2:23 AM SLACK LINE YARDER 08/09/2025 2:28 AM SLACK LINE YARDER us Bethel Bailey MD LAB BLOOD ORDERABLES Final Result [facility] [address] Department [place] [address] * MD CRITICAL CARE ILL/INJURED PATIENT INIT 30-74 MIN (08/09/2025 1:32 AM SLACK LINE YARDER) Narrative Bethel Bailey MD - 08/09/2025 1:32 AM SLACK LINE YARDER Bethel Bailey MD 08/09/2025 11:11 PM Critical [...] Benzodiazepine Confirmation by MS (08/09/2025 1:16 AM SLACK LINE YARDER) Pathologist [facility] [place] Alprazolam, ur Does Not Confirm CutOff 20 ng/ml Comment:Testing performed by : [facility], [address] [place] [address]., [id number] Clonazepam, ur Does Not Confirm CutOff 20 ng/ml [facility] Comment:Testing performed by : [facility], [address] [place] [address]., [id number] Flunitrazepam, ur Does Not Confirm CutOff 20 ng/ml [facility] Comment:Testing performed by : [facility], [address] [place] [address], [place]., [address] Lorazepam, ur Does Not Confirm CutOff 20 ng/ml [facility] Comment:Testing performed by : [facility], [address] [place]., [address] Midazolam, ur Does Not Confirm CutOff 100 ng/mL [facility] Comment:Testing performed by : [facility], [address] [place] [address]., [id number] Nordiazepam, ur Confirmed Positive(A) CutOff 20 ng/ml [facility] Comment:Testing performed by : [facility], [address] [place]., [address] Oxazepam, ur Confirmed Positive(A) CutOff 20 ng/ml [facility] Comment:Testing performed by : [facility], [address] [place]., [address] Temazepam, ur Confirmed Positive(A) CutOff 20 ng/ml [facility] Comment: Interpretive Data This test is performed by liquid chromatography tandem mass spectrometry and detects both free and conjugated drug metabolites. Questions concerning interpretation should be directed to the laboratory. The results of this test are intended for clinical use. This test was developed and its performance characteristics determined by [facility]. It has not been cleared or approved by the U.S. Food and Drug Administration. Testing performed by: [facility], [address] [place]., [address] Urine 08/09/2025 1:16 AM SLACK LINE YARDER 08/10/2025 10:24 AM SLACK LINE YARDER Bethel Bailey MD LAB URINE ORDERABLES Final Result [facility] [address] Department [place] [address] * (ABNORMAL) Drugs of Abuse Screen, Urine with Reflex Confirmation (08/09/2025 1:16 AM SLACK LINE YARDER) [facility] Amphetamine, ur Not Detected CutOff 500ng/mL Comment: [...] 2023. Cocaine, ur Not Detected CutOff 150ng/mL [facility] Comment: Interpretive Data - Cocaine: Samples containing greater than 150 ng/mL benzoylecgonine or other cross- reacting compounds are reported as positive. False positive and false negative results are possible. Confirmatory testing required for definitive results. Current Interpretive Data was last reviewed 2023. Fentanyl, Ur Not Detected CutOff 5 ng/mL [facility] Comment: Interpretive Data - Fentanyl: Samples containing [...] 2023. Oxycodone, ur Not Detected CutOff 100ng/mL [facility] Comment: Interpretive Data - Oxycodone: Samples containing [...] last reviewed 2023. Urine Creatinine 24 mg/dL [facility] Comment: Interpretive Data Urine Creatinine: < 10 mg/dL is extremely dilute = or > 10 but < 20 mg/dL is dilute = or > 20 mg/dL is normal Current Interpretive Data was last revised on 2017. Urine 08/09/2025 1:16 AM SLACK LINE YARDER 08/09/2025 1:28 AM SLACK LINE YARDER Narrative [facility] - 08/09/2025 1:59 AM SLACK LINE YARDER Drug Screening is performed by immunoassay for medical purposes. If positive, confirmation testing will be performed for amphetamines, benzodiazepines, cocaine, fentanyl, methadone, opiates, oxycodone, and phencyclidine. Bethel Bailey MD LAB URINE ORDERABLES Final Result [facility] [address] Department [place] [address] * (ABNORMAL) Urinalysis reflex to microscopic and culture Urine (08/09/2025 1:16 AM SLACK LINE YARDER) Color, ur Straw Yellow Clarity, ur Clear Clear [facility] Specific gravity, ur 1.002(L) 1.003 - 1.030 [facility] pH, urine 6.0 [facility] Comment: Interpretive Data U rine pH is affected by diet, medications, systemic acid-base disturbances, and renal tubular function. pH may affect urinary stone formation. For example, urine pH below 6.0 may help reduce the tendency for calcium phosphate stones and pH greater than 6.0 may reduce the tendency for uric acid stone formation. Source: [facility] [place] Current Interpretive Data was last revised on [...] not met. [facility] Urine 08/09/2025 1:16 AM SLACK LINE YARDER 08/09/2025 1:28 AM SLACK LINE YARDER us Bethel Bailey MD LAB MICROBIOLOGY - NERAL ORDERABLES Final Result Performing Organization Address [facility]/ZIP Co de Phone Number ETHAN [address] Department [place] [address] * eGFR (07/16/2025 8:15 PM SLACK LINE YARDER) eGFR >90 >=60 mL/min/1. 73 m2 Comment: [...] interpretive data was last reviewed 2021. Blood 07/16/2025 8:15 PM SLACK LINE YARDER 07/16/2025 8:43 PM SLACK LINE YARDER us Pedrito Mancuso MD PhD LAB BLOOD ORDERABLES Final Result [facility] [place] [address] * HIV 1/2 Antibody plus p24 Antigen Blood (07/16/2025 8:15 PM SLACK LINE YARDER) Pathologist [facility] [place] HIV 1/2 ab + p24 ag Nonreactive Nonreactive Comment:Nonreactive for HIV- 1 antigen and HIV-1/HIV-2 antibodies. No laboratory evidence of HIV infection. If acute HIV infection is suspected, consider testing for HIV-1 RNA. Current interpretive data was last revised on 22. Blood 07/16/2025 8:15 PM SLACK LINE YARDER 07/16/2025 8:34 PM SLACK LINE YARDER us Polo Lamar MD LAB MICROBIOLOGY - GEN ERAL ORDERABLES Final Result Performing Organization Address [facility] [place] [address] * Hepatitis C antibody Blood (07/16/2025 8:15 PM SLACK LINE YARDER) [facility] Hep C Ab Nonreactive Nonreactive Comment:Antibodies to HCV no t detected. Does NOT exclude the possibility of recent exposure to HCV. Current interpretive data was last revised on 22 Blood 07/16/2025 8:15 PM SLACK LINE YARDER 07/16/2025 8:34 PM SLACK LINE YARDER us Polo Lamar MD LAB MICROBIOLOGY - GEN ERAL [place] [address] * RPR Blood (07/16/2025 8:15 PM SLACK LINE YARDER) Pathologist [facility] [place] RPR Nonreactive Nonreactive Blood 07/16/2025 8:15 PM SLACK LINE YARDER 07/16/2025 8:34 PM SLACK LINE YARDER us Polo Lamar MD LAB MICROBIOLOGY - GEN ERAL ORDERABLES Final Result [facility] [place] [address] * Hepatitis B Surface Antigen Blood (07/16/2025 8:15 PM SLACK LINE YARDER) [facility] HepBsAg Nonreactive Nonreactive Blood 07/16/2025 8:15 PM SLACK LINE YARDER 07/16/2025 8:34 PM SLACK LINE YARDER us Polo Lamar MD LAB MICROBIOLOGY - GEN ERAL ORDERABLES Final Result Performing Organization Address [facility] de Phone Number [facility] [place] [address] * (ABNORMAL) CBC without differential (07/16/2025 8:15 PM SLACK LINE YARDER) [facility] WBC 10.96(H) 3.80 - 9.90 K/cumm Hgb 13.3 13.0 - 17.5 g/dL [facility] Hct 40.5 38.9 - 50.3 % [facility] Plt 231 150 - 400 K/cumm [facility] MPV 11.2 9.1 - 12.3 fL [facility] RBC 4.35 4.30 - 5.80 M/cumm [facility] MCV 93.1 81.3 - 96.4 fL [facility] MCH 30.6 27.1 - 33.3 pg [facility] MCHC 32.8 32.3 - 35.7 g/dL [facility] RDW CV 14.0 11.1 - 14.9 % [facility] RDW SD 47.4 35.7 - 48.1 fL [facility] NRBC abs 0.00 0.00 - 0.01 K/cumm [facility] Blood 07/16/2025 8:15 PM SLACK LINE YARDER 07/16/2025 8:36 PM SLACK LINE YARDER us Joaquín Cabrera MD LAB BLOOD ORDERABLES Fi nal Result [facility] [place] [address] * Phosphorus (07/16/2025 8:15 PM SLACK LINE YARDER) [facility] Phosphorus, pl 2.7 2.3 - 4.5 mg/dL Blood 07/16/2025 8:15 PM SLACK LINE YARDER 07/16/2025 8:43 PM SLACK LINE YARDER Joaquín Cabrera MD LAB BLOOD ORDERABLES Fi nal Result Performing Organization Address [facility] Co de Phone Number [facility] Department [place] [address] * Magnesium (07/16/2025 8:15 PM SLACK LINE YARDER) [facility] Magnesium 2.0 1.4 - 2.5 mg/dL Blood 07/16/2025 8:15 PM SLACK LINE YARDER 07/16/2025 8:43 PM SLACK LINE YARDER Joaquín Cabrera MD LAB BLOOD ORDERABLES Fi nal Result Performing Organization Address [facility] Co de Phone Number [facility] Department [place] [address] * Basic metabolic panel (07/16/2025 8:15 PM SLACK LINE YARDER) [facility] Sodium 136 135 - 145 mmol/L Potassium, pl 4.0 3.3 - 4.9 mmol/L [facility] Chloride 99 97 - 110 mmol/L [facility] CO2 27 22 - 32 mmol/L [facility] Anion gap 10 2 - 15 mmol/L [facility] BUN 9 6 - 25 mg/dL [facility] Creatinine 0.80 0.80 - 1.30 mg/dL [facility] Glucose 87 70 - 199 mg/dL [facility] Comment: Interpretive Data Fasting glucose >/= [...] 2022. Calcium 9.2 8.5 - 10.3 mg/dL [facility] Blood 07/16/2025 8:15 PM SLACK LINE YARDER 07/16/2025 8:43 PM SLACK LINE YARDER Pedrito Mancuso MD PhD LAB BLOOD ORDERABLES Final Result [facility] [address] [facility] Department [place] [address] * (ABNORMAL) Benzodiazepine Confirmation by MS (07/16/2025 1:18 PM SLACK LINE YARDER) Pathologist [facility] [place] Alprazolam, ur Does Not Confirm CutOff 20 ng/ml Clonazepam, ur Does Not Confirm CutOff 20 ng/ml [facility] Flunitrazepam, ur Does Not Confirm CutOff 20 ng/ml [facility] Lorazepam, ur Confirmed Positive(A) CutOff 20 ng/ml [facility] Midazolam, ur Does Not Confirm CutOff 100 ng/mL [facility] Nordiazepam, ur Confirmed Positive(A) CutOff 20 ng/ml [facility] Oxazepam, ur Confirmed Positive(A) CutOff 20 ng/ml [facility] Temazepam, ur Confirmed Positive(A) CutOff 20 ng/ml [facility] Comment: Interpretive Data This test is performed by liquid chromatography tandem mass spectrometry and detects both free and conjugated drug metabolites. Questions concerning interpretation should be directed to the laboratory. The results of this test are intended for clinical use. This test was developed and its performance characteristics determined by [facility]. It has not been cleared or approved by the U.S. Food and Drug Administration. Urine 07/16/2025 1:18 PM SLACK LINE YARDER 07/16/2025 5:59 PM SLACK LINE YARDER Pedrito Mancuso MD PhD LAB URINE ORDERABLES Final Result Performing Organization Address [facility] [place] [address] * N. gonorrhoeae/C. trachomatis Amplification Urine (07/16/2025 1:18 PM SLACK LINE YARDER) Pathologist [facility] [place] C. trachomatis Not Detected Not Detected [facility] N. gonorrhoeae Not Detected Not Detected [facility] Comment: Interpretive Data This assay detects Chlamydia trachomatis and Neisseria gonorrhoeae by nucleic acid amplification testing (NAAT). This assay has been cleared by the [place] Food and Drug administration. The performance characteristics of this test have been verified by the [facility] Molecular Infectious Disease laboratory. The performance characteristics of this test have not been evaluated in individuals less than 14 years of age. Current Interpretive Data last revised 2023. Urine (None) 07/16/2025 1:18 PM SLACK LINE YARDER 07/16/2025 3:31 PM SLACK LINE YARDER Result [facility] Pedrito Mancuso MD PhD LAB MICROBIOLOGY - GENERAL ORDERABLES Final Result Performing Organization Address [facility] de Phone Number [facility] Department [place] [address] [facility] * (ABNORMAL) Drugs of Abuse Screen, Urine with Reflex Confirmation (07/16/2025 1:18 PM SLACK LINE YARDER) Pathologist [facility] [place] Amphetamine, ur Not Detected CutOff 500ng/mL Comment: Interpretive Data - Amphetamines: Samples containing greater than 500 ng/mL d-methamphetamine or other cross-reacting amphetamine compounds are reported as positive. Amphetamine immunoassays are subject to significant false positive rates due to cross-reactivity of non-amphetamine drugs. Confirmatory testing required for definitive results. Current Interpretive Data was last reviewed 2023. Barbiturates, ur Screen Positive, presumptive (A) CutOff 200ng/mL [facility] Comment: Interpretive Data - Barbiturates: Samples containing greater than 200 ng/mL secobarbital or other cross-reacting barbiturate compounds are reported as positive. False positive and false negative results are possible. Confirmatory testing required for definitive results. Current Interpretive Data was last reviewed 2023. Benzodiazepines, ur Screen Positive, presumptive (A) CutOff 100ng/mL [facility] Comment: Interpretive Data - Benzodiazepines: Samples containing greater than 100 ng/mL nordiazepam or other cross-reacting compounds are reported as positive. False positive and false negative results are possible. Confirmatory testing required for definitive results. Current Interpretive Data was last reviewed 2023. Cannabinoids, ur Not Detected CutOff 50 ng/mL [facility] Comment: Interpretive Data - Cannabinoids: Samples containing greater than 50 ng/mL delta-9 THC -COOH or other cross- reacting compounds are reported as positive. False positive and false negative results are possible. Confirmatory testing required for definitive results. Current Interpretive Data was last reviewed 2023. Cocaine, ur Not Detected CutOff 150ng/mL [facility] Comment: Interpretive Data - Cocaine: Samples containing greater than 150 ng/mL benzoylecgonine or other cross- reacting compounds are reported as positive. False positive and false negative results are possible. Confirmatory testing required for definitive results. Current Interpretive Data was last reviewed 2023. Fentanyl, Ur Not Detected CutOff 5 ng/mL [facility] Comment: Interpretive Data - Fentanyl: Samples containing greater than 5 ng/mL norfentanyl, fentanyl, or other cross-reacting fentanyl compounds are reported as positive. False positive and false negative results are possible. Confirmatory testing required for definitive results. Current Interpretive Data was last reviewed 2023. Methadone, ur Not Detected CutOff 300ng/mL [facility] Comment: Interpretive Data - Methadone: Samples containing greater than 300 ng/mL d,l-methadone or other cross-reacting compounds are reported as positive. False positive and false negative results are possible. Confirmatory testing required for definitive results. Current Interpretive Data was last reviewed 2023. Opiates, ur Not Detected CutOff 300ng/mL [facility] Comment: Interpretive Data - Opiates: Samples containing greater than 300 ng/mL morphine or other cross-reacting compounds are reported as positive. False positive and false negative results are possible. Confirmatory testing required for definitive results. Current Interpretive Data was last reviewed 2023. Oxycodone, ur Not Detected CutOff 100ng/mL [facility] Comment: Interpretive Data - Oxycodone: Samples containing greater than 100 ng/mL oxycodone or other cross-reacting compounds are reported as positive. False positive and false negative results are possible. Confirmatory testing required for definitive results. Current Interpretive Data was last reviewed 2023. Phencyclidine, ur Not Detected CutOff 25 ng/mL [facility] Comment: Interpretive Data - Phencyclidine: Samples containing greater than 25 ng/mL phencyclidine or other cross-reacting compounds are reported as positive. False positive and false negative results are possible. Confirmatory testing required for definitive results. Current Interpretive Data was last reviewed 2023. Urine Creatinine 158 mg/[facility] Comment: Interpretive Data Urine Creatinine: < 10 mg/dL is extremely dilute = or > 10 but < 20 mg/dL is dilute = or > 20 mg/dL is normal Current Interpretive Data was last revised on 2017. Urine 07/16/2025 1:18 PM [facility] 07/16/2025 5:59 PM [employer] Narrative [facility] - 07/16/2025 6:48 PM [employer] Drug Screening is performed by immunoassay for medical purposes. If positive, confirmation testing will be performed for amphetamines, benzodiazepines, cocaine, fentanyl, methadone, opiates, oxycodone, and phencyclidine. Pedrito Mancuso MD PhD LAB URINE ORDERABLES Final Result [facility] Department [place] [address] * eGFR (07/16/2025 7:03 AM [employer]) eGFR >90 >=60 mL/min/1. 73 m2 Comment: [...] interpretive data was last reviewed 2021. Blood 07/16/2025 7:03 AM [employer] 07/16/2025 7:49 AM [employer] us Polo Lamar MD LAB BLOOD ORDERABLES F inal Result Performing Organization Address [facility] de Phone Number [facility] Department [place] [address] * Phosphorus (07/16/2025 7:03 AM [employer]) Phosphorus, pl 3.2 2.3 - 4.5 mg/dL Blood 07/16/2025 7:03 AM [employer] 07/16/2025 7:11 AM [employer] us Polo Lamar MD LAB BLOOD ORDERABLES F inal Result Performing Organization Address [facility] de Phone Number [facility] Department [place] [address] * Magnesium (07/16/2025 7:03 AM [employer]) Magnesium 1.7 1.4 - 2.5 mg/dL Blood 07/16/2025 7:03 AM [employer] 07/16/2025 7:11 AM [employer] us Polo Lamar MD LAB BLOOD ORDERABLES F inal Result Performing Organization Address [facility]/ZIP Co de Phone Number [facility] Department [place] [address] * (ABNORMAL) Basic metabolic panel (07/16/2025 7:03 AM [employer]ER) Pathologist [facility] [place] Sodium 137 135 - 145 mmol/L Potassium, pl 4.5 3.3 - 4.9 mmol/L [facility] Chloride 97 97 - 110 mmol/L [facility] CO2 26 22 - 32 mmol/L [facility] Anion gap 14 2 - 15 mmol/L [facility] BUN 10 6 - 25 mg/dL [facility] Creatinine 0.67(L) 0.80 - 1.30 mg/dL [facility] Glucose 81 70 - 199 mg/dL [facility] Comment: Interpretive Data Fasting glucose >/= [...] 2022. Calcium 8.9 8.5 - 10.3 mg/dL [facility] Blood 07/16/2025 7:03 AM [employer] 07/16/2025 7:11 AM [employer] us Pool Lamar MD LAB BLOOD ORDERABLES F inal Result [facility] Department [place] [address] * (ABNORMAL) CBC without differential (07/16/2025 5:08 AM [employer]) [facility] WBC 11.88(H) 3.80 - 9.90 K/cumm Hgb 14.2 13.0 - 17.5 g/dL [facility] Hct 42.2 38.9 - 50.3 % [facility] Plt 311 150 - 400 K/cumm [facility] MPV 12.8(H) 9.1 - 12.3 fL [facility] RBC 4.59 4.30 - 5.80 M/cumm [facility] MCV 91.9 81.3 - 96.4 fL [facility] MCH 30.9 27.1 - 33.3 pg [facility] MCHC 33.6 32.3 - 35.7 g/dL [facility] RDW CV 14.7 11.1 - 14.9 % [facility] RDW SD 49.7(H) 35.7 - 48.1 fL [facility] NRBC abs 0.00 0.00 - 0.01 K/cumm [facility] Blood 07/16/2025 5:08 AM [employer] 07/16/2025 5:23 AM [employer] us Polo Lamar MD LAB BLOOD ORDERABLES F inal Result [facility] [address] [facility] Department [place] [address] * XR Chest Pa Lateral 2 Views (07/15/2025 8:58 PM [employer]) Anatomical Region Laterality Modality Body, Chest N/A Computed Radiogr aphy 07/15/2025 10:2 8 PM [employer] Impressions 07/16/2025 9:20 PM [employer] No pulmonary consolidation, pleural effusion, or pneumothorax. The cardiomediastinal silhouette is within normal limits. Dictated by: Armond Reyes MD The radiology attending physician has personally reviewed this study, and had reviewed and/or edited this written report and agrees with it. Electronically signed by: César Mayer M.D. Narrative 07/16/2025 9:20 PM [employer] EXAMINATION: XR CHEST PA LATERAL 2 VIEWS HISTORY: Generalized weakness COMPARISON: 05/20/2025 Procedure Note César Mayer MD PhD - 07/16/2025 EXAMINATION: XR CHEST PA LATERAL 2 VIEWS HISTORY: Generalized weakness COMPARISON: 05/20/2025 IMPRESSION: No pulmonary consolidation, pleural effusion, or pneumothorax. The cardiomediastinal silhouette is within normal limits. Dictated by: Armond Reyes MD The radiology attending physician has personally reviewed this study, and had reviewed and/or edited this written report and agrees with it. Electronically signed by: César Mayer M.D. us Esteban Haney MD IMG XR PROCEDURES Lanette l Result * eGFR (07/15/2025 2:29 PM [employer]) eGFR >90 >=60 mL/min/1. 73 m2 Comment: [...] interpretive data was last reviewed 2021. Blood 07/15/2025 2:29 PM [employer] 07/15/2025 3:02 PM [employer] us Mariama Fisher MD LAB BLOOD ORDERABLES Lanette l Result [facility] One [facility] Department of Laboratories [place], [place] [id number] * (ABNORMAL) Differential, auto (07/15/2025 2:29 PM [employer]) Neutrophil abs 17.23(H) 1.50 - 6.50 K/cumm Imm gran abs 0.12(H) 0.00 - 0.10 K/cumm [facility] Lymphocyte abs 3.10 0.80 - 3.30 K/cumm [facility] Monocyte abs 0.99(H) 0.20 - 0.80 K/cumm [facility] Eosinophil abs 0.03 0.00 - 0.50 K/cumm [facility] Basophil abs 0.10 0.00 - 0.10 K/cumm [facility] Neutrophil pct 79.8 % [facility] Comment: Interpretive Data Percent cell count reference ranges are not reported, since discordance with absolute values may lead to misinterpretation of CBC data. Current Interpretive Data was last revised on 2017. Imm gran pct 0.6 % [facility] Comment: Interpretive Data Percent cell count reference ranges are not reported, since discordance with absolute values may lead to misinterpretation of CBC data. Current Interpretive Data was last revised on 2017. Lymphocyte pct 14.4 % [facility] Comment: Interpretive Data Percent cell count reference ranges are not reported, since discordance with absolute values may lead to misinterpretation of CBC data. Current Interpretive Data was last revised on 2017. Monocyte pct 4.6 % [facility] Comment: Interpretive Data Percent cell count reference ranges are not reported, since discordance with absolute values may lead to misinterpretation of CBC data. Current Interpretive Data was last revised on 2017. Eosinophil pct 0.1 % [facility] Comment: Interpretive Data Percent cell count reference ranges are not reported, since discordance with absolute values may lead to misinterpretation of CBC data. Current Interpretive Data was last revised on 2017. Basophil pct 0.5 % [facility] Comment: Interpretive Data Percent cell count reference ranges are not reported, since discordance with absolute values may lead to misinterpretation of CBC data. Current Interpretive Data was last revised on 2017. Blood 07/15/2025 2:29 PM [employer] 07/15/2025 3:02 PM [employer] Mariama Fisher MD LAB BLOOD ORDERABLES Lanette l Result Performing Organization Address City/State/[facility] de Phone Number [facility] Department [place] [address] * (ABNORMAL) CBC with auto differential (07/15/2025 2:29 PM [employer]ER) Pathologist [facility] [place] WBC 21.57(H) 3.80 - 9.90 K/cumm Hgb 18.8(H) 13.0 - 17.5 g/dL [facility] Hct 54.4(H) 38.9 - 50.3 % [facility] Plt 407(H) 150 - 400 K/cumm [facility] MPV 11.2 9.1 - 12.3 fL [facility] RBC 6.06(H) 4.30 - 5.80 M/cumm [facility] MCV 89.8 81.3 - 96.4 fL [facility] MCH 31.0 27.1 - 33.3 pg [facility] MCHC 34.6 32.3 - 35.7 g/dL [facility] RDW CV 14.2 11.1 - 14.9 % [facility] RDW SD 46.9 35.7 - 48.1 fL [facility] NRBC abs 0.00 0.00 - 0.01 K/cumm [facility] Blood 07/15/2025 2:29 PM [employer] 07/15/2025 3:02 PM [employer] us Mariama Fisher MD LAB BLOOD ORDERABLES Lanette l Result Performing Organization Address [facility] Co de Phone Number [facility] Department [place] [address] * Phosphorus (07/15/2025 2:29 PM [employer]ER) Pathologist [facility] [place] Phosphorus, pl 3.4 2.3 - 4.5 mg/dL Blood 07/15/2025 2:29 PM [employer] 07/15/2025 2:43 PM [employer]ER Mariama Fisher MD LAB BLOOD ORDERABLES Lanette l Result Performing Organization Address [facility] de Phone Number [facility] [place] [address] * Magnesium (07/15/2025 2:29 PM [employer]ER) Magnesium 2.0 1.4 - 2.5 mg/dL Blood 07/15/2025 2:29 PM [employer] 07/15/2025 2:43 PM [employer]ER Mariama Fisher MD LAB BLOOD ORDERABLES Lanette l Result Performing Organization Address [facility] de Phone Number [facility] [place] [address] * Lipase (07/15/2025 2:29 PM [employer]ER) Pathologist [facility] [place] Lipase 30 10 - 99 Units/L Blood 07/15/2025 2:29 PM [employer]ER 07/15/2025 2:43 PM [employer]ER Mariama Fisher MD LAB BLOOD ORDERABLES Lanette l Result Performing Organization Address [facility] de Phone Number [facility] Department [place] [address] * (ABNORMAL) Ethanol (07/15/2025 2:29 PM [employer]ARDER) Pathologist [facility] [place] Ethanol 282(H) <=10 mg/dL Comment: Interpretive Data Legal limit of intoxication > or = 80 mg/dL Levels > or = 400 mg/dL are potentially TOXIC. Current interpretive data was last revised on 2018. Blood 07/15/2025 2:29 PM [employer]ER 07/15/2025 2:43 PM [employer]ER Medicine LAB BLOOD ORDERABLES Final Resul t Performing Organization Address [facility] Co de Phone Number [facility] Department [place] [address] * (ABNORMAL) Comprehensive metabolic panel (07/15/2025 2:29 PM SLACK [employer]ER) Sodium 137 135 - 145 mmol/L Potassium, pl 4.3 3.3 - 4.9 mmol/L [facility] Chloride 94(L) 97 - 110 mmol/L [facility] CO2 23 22 - 32 mmol/L [facility] Anion gap 20(H) 2 - 15 mmol/L [facility] BUN 8 6 - 25 mg/dL [facility] Creatinine 0.77(L) 0.80 - 1.30 mg/dL [facility] Glucose 107 70 - 199 mg/dL [facility] Comment: Interpretive Data Fasting glucose >/= [...] interpretive data was last revised 2022. Calcium 10.1 8.5 - 10.3 mg/dL [facility] Bilirubin, total 0.4 0.1 - 1.2 mg/dL [facility] Protein, pl 9.0(H) 6.5 - 8.5 g/dL [facility] Albumin 5.4(H) 3.5 - 5.0 g/dL [facility] Alk phos 83 40 - 130 Units/L [facility] ALT 25 7 - 55 Units/L [facility] AST 36 10 - 50 Units/L [facility] Blood 07/15/2025 2:29 PM [employer] 07/15/2025 2:43 PM [employer]ER us Mariama Fisher MD LAB BLOOD ORDERABLES Lanette l Result [facility] One [facility] Department [place] [address] * ECG 12-LEAD (07/15/2025 2:23 PM [employer]ER) Narrative [facility] - 07/15/2025 2:23 PM [employer] Mariama Fisher MD 07/15/2025 2:24 PM ECG 12 lead Date/Time: 07/15/2025 2:23 PM Performed by: Mariama Fisehr MD Authorized by: Mariama Fisher MD Rate: ECG rate: 138 ECG rate assessment: tachycardic Rhythm: Rhythm: sinus tachycardia Ectopy: Ectopy: none QRS: QRS axis: Normal QRS intervals: Normal Conduction: Conduction: normal ST segments: ST segments: Normal T waves: T waves: normal Previous ECG: Previous ECG: Compared to current Date of previous EC05/19/2025 Similarity: No change Interpretation: Interpretation: No acute injury pattern Recommended Follow-up: Recommended follow up: further workup in the ED Comments: ECG obtained for tachycardia Travis Castle MD ECG ORDERABLES Final Resul t [facility] * Phosphorus (05/26/2025 5:25 AM CDT) Phosphorus, pl 3.5 2.3 - 4.5 mg/dL Blood 05/26/2025 5:25 AM CDT 05/26/2025 5:33 AM CDT Ross Shirley NP LAB BLOOD ORDERABLES F inal Result [facility] [address] Department [place] [address] * Folate (05/26/2025 5:25 AM CDT) Folic acid >20.0 >=5.0 ng/mL Comment:Hemolysis present. R esults may be affected. Blood 05/26/2025 5:25 AM CDT 05/26/2025 12:15 PM CDT Yas Han MD LAB BLOOD ORDERABLES Final Re sult Performing Organization Address City/[facility]/ZIP Co de Phone Number [facility] [id number] [address] [facility] [place] [address] * Vitamin B12 (05/26/2025 5:25 AM CDT) Vitamin B12 522 230 - 1,250 pg/mL Blood 05/26/2025 5:25 AM CDT 05/26/2025 12:15 PM CDT Yas Han MD LAB BLOOD ORDERABLES Final Re sult Performing Organization Address [facility] Co de Phone Number [facility] [phone] [address] [facility] [place] [address] * Phosphorus (05/25/2025 6:35 AM CDT) Phosphorus, pl 2.9 2.3 - 4.5 mg/dL Blood 05/25/2025 6:35 AM CDT 05/25/2025 6:48 AM CDT Ross Shirley [employer] INSTRU[employer] LAB BLOOD ORDERABLES F inal Result Performing Organization Address [facility] Co de Phone Number [facility] [phone] [address] [place] [address] * Phosphorus (05/24/2025 6:38 AM CDT) Phosphorus, pl 3.5 2.3 - 4.5 mg/dL Blood 05/24/2025 6:38 AM CDT 05/24/2025 6:38 AM CDT Ross Shirley FITNESS INSTRUCTOR LAB BLOOD ORDERABLES F inal Result Performing Organization Address City/[facility]/ZIP Co de Phone Number [facility] [phone] [address] [facility] [place] [address] * Magnesium (05/24/2025 6:38 AM CDT) [facility] Magnesium 1.7 1.4 - 2.5 mg/dL Blood 05/24/2025 6:38 AM CDT 05/24/2025 6:38 AM CDT Ross Shirley FITNESS INSTRUCTOR LAB BLOOD ORDERABLES F inal Result Performing Organization Address City/[facility] Co de Phone Number [facility] [phone] [address] [place] [address] * (ABNORMAL) Phosphorus (05/23/2025 5:11 AM CDT) [facility] Phosphorus, pl 4.6(H) 2.3 - 4.5 mg/dL Blood 05/23/2025 5:11 AM CDT 05/23/2025 5:33 AM CDT Ross Shirley FITNESS INSTRUCTOR LAB BLOOD ORDERABLES F inal Result Performing Organization Address [facility] Co de Phone Number [facility] [address] [place] [address] * Magnesium (05/23/2025 5:11 AM CDT) [facility] Magnesium 1.7 1.4 - 2.5 mg/dL Blood 05/23/2025 5:11 AM CDT 05/23/2025 5:33 AM CDT Ross Shirley FITNESS INSTRUCTOR LAB BLOOD ORDERABLES F inal Result Performing Organization Address City/[facility] Co de Phone Number [facility] [address] [facility] [place] [address] * eGFR (05/22/2025 5:06 AM CDT) [facility] eGFR >90 >=60 mL/min/1. 73 m2 Comment: [...] interpretive data was last reviewed 2021. Blood 05/22/2025 5:06 AM CDT 05/22/2025 5:43 AM CDT us Ross Shirley FITNESS INSTRUCTOR LAB BLOOD ORDERABLES F inal Result [facility] [address] [address] Department [place] [address] * (ABNORMAL) CBC without differential (05/22/2025 5:06 AM CDT) WBC 8.68 3.80 - 9.90 K/cumm Hgb 13.9 13.0 - 17.5 g/dL [facility] Hct 42.2 38.9 - 50.3 % [facility] Plt 161 150 - 400 K/cumm [facility] MPV 11.2 9.1 - 12.3 fL [facility] RBC 4.33 4.30 - 5.80 M/cumm [facility] MCV 97.5(H) 81.3 - 96.4 fL [facility] MCH 32.1 27.1 - 33.3 pg [facility] MCHC 32.9 32.3 - 35.7 g/dL [facility] RDW CV 12.4 11.1 - 14.9 % [facility] RDW SD 44.6 35.7 - 48.1 fL [facility] NRBC abs 0.00 0.00 - 0.01 K/cumm [facility] Blood 05/22/2025 5:06 AM CDT 05/22/2025 5:43 AM CDT Suman Jenkins PA LAB BLOOD ORDERABLES Fi nal Result Performing Organization Address City/State/[facility] Co de Phone Number [facility] [address] [facility] [place] [address] * Phosphorus (05/22/2025 5:06 AM CDT) Pathologist [facility] [place] Phosphorus, pl 4.1 2.3 - 4.5 mg/dL Blood 05/22/2025 5:06 AM CDT 05/22/2025 5:43 AM CDT Ross Shirley FITNESS INSTRUCTOR LAB BLOOD ORDERABLES F inal Result Performing Organization Address [facility] de Phone Number [facility] [address] [place] [address] * Magnesium (05/22/2025 5:06 AM CDT) [facility] Magnesium 1.7 1.4 - 2.5 mg/dL Blood 05/22/2025 5:06 AM CDT 05/22/2025 5:43 AM CDT Ross Shirley FITNESS INSTRUCTOR LAB BLOOD ORDERABLES F inal Result Performing Organization Address [facility] de Phone Number [facility] [phone] [address] [place] [address] * (ABNORMAL) Basic metabolic panel (05/22/2025 5:06 AM CDT) Sodium 137 135 - 145 mmol/L Potassium, pl 3.4 3.3 - 4.9 mmol/L [facility] Chloride 96(L) 97 - 110 mmol/L [facility] CO2 26 22 - 32 mmol/L [facility] Anion gap 15 2 - 15 mmol/L [facility] BUN 4(L) 6 - 25 mg/dL [facility] Creatinine 0.67(L) 0.80 - 1.30 mg/dL [facility] Glucose 84 70 - 199 mg/dL [facility] Comment: Interpretive Data Fasting glucose >/= 126 [...] 2022. Calcium 9.2 8.5 - 10.3 mg/dL [facility] Blood 05/22/2025 5:06 AM CDT 05/22/2025 5:43 AM CDT Ross Shirley NP LAB BLOOD ORDERABLES F inal Result [facility] [address] Department [place] [address] * eGFR (05/21/2025 8:16 AM CDT) eGFR >90 >=60 mL/min/1. 73 [...] interpretive data was last reviewed 2021. Blood 05/21/2025 8:16 AM CDT 05/21/2025 8:29 AM CDT Ross Shirley FITNESS INSTRUCTOR LAB BLOOD ORDERABLES F inal Result Performing Organization Address City/[facility] Co de Phone Number [facility] [address] [place] [address] * (ABNORMAL) CBC without differential (05/21/2025 8:16 AM CDT) WBC 8.52 3.80 - 9.90 K/cumm Hgb 12.7(L) 13.0 - 17.5 g/dL [facility] Hct 38.5(L) 38.9 - 50.3 % [facility] Plt 153 150 - 400 K/cumm [facility] MPV 11.6 9.1 - 12.3 fL [facility] RBC 3.93(L) 4.30 - 5.80 M/cumm [facility] MCV 98.0(H) 81.3 - 96.4 fL [facility] MCH 32.3 27.1 - 33.3 pg [facility] MCHC 33.0 32.3 - 35.7 g/dL [facility] RDW CV 12.7 11.1 - 14.9 % [facility] RDW SD 46.0 35.7 - 48.1 fL [facility] NRBC abs 0.00 0.00 - 0.01 K/cumm [facility] Blood 05/21/2025 8:16 AM CDT 05/21/2025 9:04 AM CDT Ross Shirley FITNESS INSTRUCTOR LAB BLOOD ORDERABLES F inal Result Performing Organization Address City/[facility]/ZIP Co de Phone Number [facility] [phone] [address] Department [place] [address] * Phosphorus (05/21/2025 8:16 AM CDT) Phosphorus, pl 3.5 2.3 - 4.5 mg/dL Blood 05/21/2025 8:16 AM CDT 05/21/2025 8:29 AM CDT Ross Morales Casper FITNESS INSTRUCTOR LAB BLOOD ORDERABLES F inal Result Performing Organization Address City/[facility] [facility] Co de Phone Number ETHAN STAHL [address] [address] [facility] [place] [address] * Magnesium (05/21/2025 8:16 AM CDT) Pathologist [facility] [place] Magnesium 2.1 1.4 - 2.5 mg/dL Blood 05/21/2025 8:16 AM CDT 05/21/2025 8:29 AM CDT Ross Youngnina FITNESS INSTRUCTOR LAB BLOOD ORDERABLES F inal Result Performing Organization Address [facility] de Phone Number ETHAN [address] [address] [place] [address] * (ABNORMAL) Basic metabolic panel (05/21/2025 8:16 AM CDT) Pathologist [facility] [place] Sodium 139 135 - 145 mmol/L Potassium, pl 3.4 3.3 - 4.9 mmol/L [facility] Chloride 97 97 - 110 mmol/L [facility] CO2 28 22 - 32 mmol/L [facility] Anion gap 14 2 - 15 mmol/L [facility] BUN 6 6 - 25 mg/dL [facility] Creatinine 0.78(L) 0.80 - 1.30 mg/dL [facility] Glucose 101 70 - 199 mg/dL [facility] Comment: Interpretive Data Fasting glucose >/= 126 [...] 2022. Calcium 8.7 8.5 - 10.3 mg/dL ETHAN STAHL Blood 05/21/2025 8:16 AM CDT 05/21/2025 8:29 AM CDT Result [facility] Ross Shirley FITNESS INSTRUCTOR LAB BLOOD ORDERABLES F inal Result ETHAN [address] [facility] Department [place] [address] * Critical Care (05/21/2025 7:33 AM CDT) Narrative Viviana Mattson DO - 05/21/2025 7:33 AM CDT Viviana Mattson DO 05/21/2025 5:09 PM Critical Care Performed by: Ross Shirley NP Authorized by: Ross Shirley NP CRITICAL CARE: Team: CHNE Shift: AM Level of Billing: Subsequent Hospital Visit Level 3 My time spent with this patient was 75 minutes: Critical Provider Statement: I have seen and examined the patient on this day of service. I have reviewed and confirmed the history, physical exam, laboratory, and radiographic data as documented in the ICU note. I have reviewed and discussed my treatment plan with the patient's team and other medical/desktop support consultant staff. This time was in addition to and separate from care provided by other practitioners on this day of service. I spent time reviewing and interpreting data from bedside monitors, laboratory results, and imaging, I spent time discussing the management of this critically ill patient with consultants and the medical staff and I spent time documenting in the medical record Ross Shirley FITNESS INSTRUCTOR IN CLINIC/BEDSIDE JOSEMary LYNN Final Result * Critical Care (05/20/2025 9:21 PM CDT) Narrative Suman Segura MD - 05/20/2025 9:21 PM CDT Suman Segura MD 05/21/2025 4:46 AM Critical Care Performed by: Suman Jenkins PA Authorized by: Suman Jenkins PA CRITICAL CARE: Team: CHNE Shift: PM Level of Billing: Critical Care My time spent with this patient was 45 minutes: Critical Provider Statement: I have seen and examined the patient on this day of service. I have reviewed and confirmed the history, physical exam, laboratory and radiologic data as documented in the signed ICU note. I have reviewed and discussed my treatment plan with the ICU team and other medical/desktop support consultant staff, making frequent assessments and decisions [...] or life-threatening deterioration of the following conditions: Suman STONER IN CLINIC/BEDSIDE ORDER JUAN A Final Result * eGFR (05/20/2025 7:35 PM CDT) eGFR >90 >=60 mL/min/1. 73 [...] interpretive data was last reviewed 2021. Blood 05/20/2025 7:35 PM CDT 05/20/2025 7:42 PM CDT us Ross Shirley NP LAB BLOOD ORDERABLES F inal Result ETHAN [address] [address] [place] [address] * (ABNORMAL) Phosphorus (05/20/2025 7:35 PM CDT) Pathologist [facility] [place] Phosphorus, pl 1.3(L) 2.3 - 4.5 mg/dL Blood 05/20/2025 7:35 PM CDT 05/20/2025 7:42 PM CDT Ross Shirley FITNESS INSTRUCTOR LAB BLOOD ORDERABLES F inal Result Performing Organization Address City/[facility]/ZIP Co de Phone Number ETHAN [address] [address] [place] [address] * Magnesium (05/20/2025 7:35 PM CDT) [facility] Magnesium 1.8 1.4 - 2.5 mg/dL Blood 05/20/2025 7:35 PM CDT 05/20/2025 7:42 PM CDT Ross Shirley FITNESS INSTRUCTOR LAB BLOOD ORDERABLES F inal Result Performing Organization Address [facility] de Phone Number [facility] [address] [address] [place] [address] * (ABNORMAL) Basic metabolic panel (05/20/2025 7:35 PM CDT) [facility] Sodium 136 135 - 145 mmol/L Potassium, pl 3.5 3.3 - 4.9 mmol/L [facility] Chloride 99 97 - 110 mmol/L [facility] CO2 29 22 - 32 mmol/L [facility] Anion gap 8 2 - 15 mmol/L [facility] BUN 4(L) 6 - 25 mg/dL [facility] Creatinine 0.74(L) 0.80 - 1.30 mg/dL [facility] Glucose 89 70 - 199 mg/dL [facility] Comment: Interpretive Data Fasting glucose >/= 126 [...] 2022. Calcium 8.9 8.5 - 10.3 mg/dL ETHAN STAHL Blood 05/20/2025 7:35 PM CDT 05/20/2025 7:42 PM CDT Ross Shirley FITNESS INSTRUCTOR LAB BLOOD ORDERABLES F inal Result Performing Organization Address City/[facility]/ZIP Co de Phone Number ETHAN STAHL [address] [address] [place] [address] * eGFR (05/20/2025 11:58 AM CDT) eGFR >90 >=60 mL/min/1. 73 [...] interpretive data was last reviewed 2021. Blood 05/20/2025 11:5 8 AM CDT 05/20/2025 12:20 PM CDT Suman Jenkins PA LAB BLOOD ORDERABLES Fi nal Result CERAYDE STAHL [address] [address] [facility] [place] [address] * Phosphorus (05/20/2025 11:58 AM CDT) Pathologist [facility] [place] Phosphorus, pl 2.7 2.3 - 4.5 mg/dL Blood 05/20/2025 11:5 8 AM CDT 05/20/2025 12:17 PM CDT Suman Jenkins GA LAB BLOOD ORDERABLES Fi nal Result Performing Organization Address [facility]/ZIP Co de Phone Number ETHAN STAHL [phone] [place] [address] * Magnesium (05/20/2025 11:58 AM CDT) Pathologist [facility] [place] Magnesium 2.0 1.4 - 2.5 mg/dL Blood 05/20/2025 11:5 8 AM CDT 05/20/2025 12:17 PM CDT Suman STONER LAB BLOOD ORDERABLES Fi nal Result Performing Organization Address City/[facility]/ZIP Co de Phone Number ALFREDOAYDE STAHL [address] [place] [address] * (ABNORMAL) Basic metabolic panel (05/20/2025 11:58 AM CDT) Pathologist [facility] [place] Sodium 137 135 - 145 mmol/L Potassium, pl 3.9 3.3 - 4.9 mmol/L [facility] Chloride 98 97 - 110 mmol/L [facility] CO2 30 22 - 32 mmol/L [facility] Anion gap 9 2 - 15 mmol/L [facility] BUN 4(L) 6 - 25 mg/dL [facility] Creatinine 0.65(L) 0.80 - 1.30 mg/dL [facility] Glucose 134 70 - 199 mg/dL [facility] Comment: Interpretive Data Fasting glucose >/= 126 [...] interpretive data was last revised 2022. Calcium 8.4(L) 8.5 - 10.3 mg/dL ETHAN STAHL Blood 05/20/2025 11:5 8 AM CDT 05/20/2025 12:17 PM CDT us Suman STONER LAB BLOOD ORDERABLES Fi nal Result ETHAN STAHL [address] [address] Department [place] [address] * Critical Care (05/20/2025 7:02 AM CDT) Narrative Viviana Mattson DO - 05/20/2025 7:02 AM CDT Viviana Mattson DO 05/20/2025 6:07 PM Critical Care Performed by: Ross Shirley NP Authorized by: Ross Shirley NP CRITICAL CARE: Team: GAURAV Shift: AM Level of Billing: Critical Care My time spent with this patient was 100 minutes: Critical Provider Statement: I have seen and examined the patient on this day of service. I have reviewed and confirmed the history, physical exam, laboratory and radiologic data as documented in the signed ICU note. I have reviewed and discussed my treatment plan with the ICU team and other medical/desktop support consultant staff, making frequent assessments and decisions [...] spent time documenting in the medical record us Ross Shirley FITNESS INSTRUCTOR IN CLINIC/BEDSIDE TOMAS BAILEY Final Result * Lactate (05/20/2025 6:42 AM CDT) Lactate 1.2 0.7 - 2.0 mmol/L Blood 05/20/2025 6:42 AM CDT 05/20/2025 6:45 AM CDT Suman STONER LAB BLOOD ORDERABLES Fi nal Result ETHAN STAHL [address] [address] [place] [address] * eGFR (05/20/2025 6:42 AM CDT) eGFR >90 >=60 mL/min/1. 73 [...] interpretive data was last reviewed 2021. Blood 05/20/2025 6:42 AM CDT 05/20/2025 6:47 AM CDT Suman STONER LAB [place] [address] [address] [place] [address] * (ABNORMAL) Beta-hydroxybutyrate (05/20/2025 6:42 AM CDT) Beta-Hydroxybut yrate 1.8(H) <=0.5 mmol/L Blood 05/20/2025 6:42 AM CDT 05/20/2025 6:47 AM CDT Suman STONER LAB BLOOD ORDERABLES Fi nal Result Performing Organization Address City/[facility]/ZIP Co de Phone Number ALFREDOAYDE STAHL [address] [address] [place] [address] * Phosphorus (05/20/2025 6:42 AM CDT) Pathologist [facility] [place] Phosphorus, pl 2.9 2.3 - 4.5 mg/dL Blood 05/20/2025 6:42 AM CDT 05/20/2025 6:47 AM CDT Suman STONER LAB BLOOD ORDERABLES Fi nal Result Performing Organization Address [facility] de Phone Number ETHAN STAHL [address] [address] [place] [address] * Magnesium (05/20/2025 6:42 AM CDT) [facility] Magnesium 1.8 1.4 - 2.5 mg/dL Blood 05/20/2025 6:42 AM CDT 05/20/2025 6:47 AM CDT Suman STONER LAB BLOOD ORDERABLES Fi nal Result Performing Organization Address [facility] Co de Phone Number ALFREDOAYDE [address] [address] [facility] [place] [address] * (ABNORMAL) Basic metabolic panel (05/20/2025 6:42 AM CDT) Pathologist [facility] [place] Sodium 136 135 - 145 mmol/L Potassium, pl 3.8 3.3 - 4.9 mmol/L ETHAN STAHL Chloride 94(L) 97 - 110 mmol/L [facility] CO2 27 22 - 32 mmol/L [facility] Anion gap 15 2 - 15 mmol/L [facility] BUN 5(L) 6 - 25 mg/dL [facility] Creatinine 0.54(L) 0.80 - 1.30 mg/dL [facility] Glucose 158 70 - 199 mg/dL [facility] Comment: Interpretive Data Fasting glucose >/= 126 [...] 2022. Calcium 8.2(L) 8.5 - 10.3 mg/dL [facility] Blood 05/20/2025 6:42 AM CDT 05/20/2025 6:47 AM CDT Suman STONER LAB BLOOD ORDERABLES Fi nal Result ETHAN STAHL [address] [place] [address] * (ABNORMAL) Calcium, ionized, whole blood (05/20/2025 6:32 AM CDT) Pathologist [facility] [place] Ca, ionized, bld 4.22(L) 4.50 - 5.10 mg/dL Blood 05/20/2025 6:32 AM CDT 05/20/2025 6:44 AM CDT Suman STONER LAB BLOOD ORDERABLES Fi nal Result ETHAN STAHL [address] [address] [place] [address] * XR Chest 1 View (05/20/2025 4:03 AM CDT) Anatomical Region Laterality Modality Body, Chest N/A Computed Radiogr aphy 05/20/2025 8:54 AM CDT Impressions 05/20/2025 8:54 AM CDT Findings as described above. Electronically signed by: Yumiko Smith M.D. Narrative 05/20/2025 8:54 AM CDT EXAMINATION: XR CHEST 1 VIEW HISTORY: The patient is a 55-year-old male who had placement of a right central line. Comparison made with the previous study dated 05/01/2025. TECHNIQUE: AP portable view of the chest. FINDINGS: There has been interval placement of a right IJ central line with its tip in the distal superior vena cava. Lungs clear. Cardiovascular structures unremarkable. Procedure Note Yumiko Smith MD - 05/20/2025 EXAMINATION: XR CHEST 1 VIEW HISTORY: The patient is a 55-year-old male who had placement of a right central line. Comparison made with the previous study dated 05/01/2025. TECHNIQUE: AP portable view of the chest. FINDINGS: There has been interval placement of a right IJ central line with its tip in the distal superior vena cava. Lungs clear. Cardiovascular structures unremarkable. IMPRESSION: Findings as described above. Electronically signed by: Yumiko Smith M.D. Suman STONER IMG XR PROCEDURES Final Result * MD INSJ NON-TUNNELED CENTRAL VENOUS CATH AGE 5 YR/> (05/20/2025 3:51 AM CDT) Narrative Suman Jenkins PA - 05/20/2025 3:51 AM CDT Suman Jenkins PA 05/20/2025 3:51 AM Central Line Insertion Date/Time: 05/20/2025 3:51 AM Performed by: Suman Jenkins PA Authorized by: Suman Jenkins PA Scott Bar Protocol: RN Notified of Procedure: yes Informed consent: Unable to obtain due to emergent status Patient's stated name/ matches armband: Patient unable to verbalize - armband matched to name and within medical record Allergies confirmed: yes Consent form signed, dated, timed; matches correct patient, intended procedure and site: No consent form due to emergent status Imaging: Pertinent imaging reviewed, correctly oriented and match to patient identifiers Lab/Diag test results: Pertinent lab/diag tests reviewed and match to patient identifiers Supplies, devices and special equipment are available: yes Site/side marked: yes Immediately prior to the procedure a time out was called: a verbal verification by the procedure participants confirmed correct patient identity, correct site/side marked and visible (if applicable); agreement on procedure to be done; and correct patient positioning Have non- routine considerations been assessed?: Yes Indications: Vascular access and administer vasoactive medications Anesthesia (see MAR for exact dosage) Anesthesia method: Local infiltration Local anesthetic: Lidocaine 1% Patient position: Trendelenburg Skin preparation: Skin prepped with 2% chlorhexidine Provider preparation: Cap, full body drape, gloves, gown, handwashing, mask, partial body drape and towels Location: Right internal jugular Technique: Landmarks identified Ultrasound guidance: Used for site marking, used for needle insertion, landmarks identified, sterile probe cover used, pre-procedure diagnostic and real-time needle guidance Assessment: Blood return through all ports, free fluid flow and placement verified by x-ray Catheter type: Triple lumen Catheter size: 7 Fr Needle inserted, vein idenitified then guidewire inserted easily into vein: Yes Number of attempts: 1 Successful placement: Yes Catheter secured at (cm): 18 Catheter length (cm): 20 Line securement: Line sutured, dressing applied and securement device Patient tolerance: Patient tolerated the procedure well with no immediate complications Post Procedure Debrief: All guidewires, needles, sponges or other items are accounted for: yes Any special post procedure monitoring, testing or other considerations: yes (enter/request order) All specimens identified, labeled and matched to patient identification: n/a Responsible libertarian for transporting specimen(s) to lab determined: n/a I personally performed the above procedure which is separate from critical care billing. Suman STONER IN CLINIC/BEDSIDE ORDER JUAN A Final Result * Lactate (05/19/2025 11:06 PM CDT) Lactate 1.7 0.7 - 2.0 mmol/L Blood 05/19/2025 11:0 6 PM CDT 05/19/2025 11:10 PM CDT Suman STONER LAB BLOOD ORDERABLES Fi nal Result Performing Organization Address [facility] Co de Phone Number ETHAN STAHL [address] [place] [address] * eGFR (05/19/2025 11:06 PM CDT) eGFR >90 >=60 mL/min/1. 73 [...] interpretive data was last reviewed 2021. Blood 05/19/2025 11:0 6 PM CDT 05/19/2025 11:10 PM CDT Suman STONER LAB BLOOD ORDERABLES Fi nal Result Performing Organization Address City/[facility] Co de Phone Number ETHAN STAHL [address] [address] Department [employer] [place], [place] [id number] * (ABNORMAL) Beta-hydroxybutyrate (05/19/2025 11:06 PM CDT) Beta-Hydroxybut yrate 1.3(H) <=0.5 mmol/L Blood 05/19/2025 11:0 6 PM CDT 05/19/2025 11:10 PM CDT Suman STONER LAB BLOOD ORDERABLES Fi nal Result Performing Organization Address [facility] Co de Phone Number ETHAN STAHL [address] [address] [facility] [place] [address] * (ABNORMAL) Phosphorus (05/19/2025 11:06 PM CDT) Pathologist [facility] [place] Phosphorus, pl 1.5(L) 2.3 - 4.5 mg/dL Blood 05/19/2025 11:0 6 PM CDT 05/19/2025 11:10 PM CDT Suman STONER LAB BLOOD ORDERABLES Fi nal Result Performing Organization Address [facility] de Phone Number ETHAN STAHL [address] [place], [place] [id number] * Magnesium (05/19/2025 11:06 PM CDT) [facility] Magnesium 1.6 1.4 - 2.5 mg/dL Blood 05/19/2025 11:0 6 PM CDT 05/19/2025 11:10 PM CDT Suman STONER LAB BLOOD ORDERABLES Fi nal Result Performing Organization Address [facility] de Phone Number ETHAN STAHL [address] [address] [facility] [place] [address] * (ABNORMAL) Basic metabolic panel (05/19/2025 11:06 PM CDT) Pathologist [facility] [place] Sodium 137 135 - 145 mmol/L Potassium, pl 2.8(L) 3.3 - 4.9 mmol/L [facility] Chloride 96(L) 97 - 110 mmol/L [facility] CO2 28 22 - 32 mmol/L [facility] Anion gap 13 2 - 15 [facility] B[facility](L) 6 - 25 mg/dL ETHAN Creatinine 0.58(L) 0.80 - 1.30 mg/dL ETHAN Comment:Icteric sample, test results may be affected. Glucose 108 70 - 199 mg/dL ETHAN Comment: Interpretive Data Fasting glucose >/= 126 [...] interpretive data was last revised 2022. Calcium 7.6(L) 8.5 - 10.3 mg/dL ETHAN Blood 05/19/2025 11:0 6 PM CDT 05/19/2025 11:10 PM CDT us Sumna STONER LAB BLOOD ORDERABLES Fi nal Result ETHAN [address] [address] Department [place] [address] * Critical Care (05/19/2025 10:00 PM CDT) Narrative Suman Jenkins PA - 05/19/2025 10:00 PM CDT Suman Jenkins PA 05/20/2025 4:12 AM Critical Care Performed by: Suman Jenkins PA Authorized by: Suman Jenkins PA CRITICAL CARE: Team: GAURAV Shift: PM Level of Billing: Critical Care My time spent with this patient was 120 minutes: Critical Provider Statement: I have seen and examined the patient on this day of service. I have reviewed and confirmed the history, physical exam, laboratory and radiologic data as documented in the signed ICU note. I have reviewed and discussed my treatment plan with the ICU team and other medical/desktop support consultant staff, making frequent assessments and decisions [...] or life-threatening deterioration of the following conditions: Acute electrolyte derangement, Dehydration/hypovolemia and Lactic acidosis This time was spent by me doing the following: Serial laboratory checks, Serial bedside patient exams and Resuscitation with fluids Phenobarbital loading; alcohol withdrawal management Active and frequent reassessment of respiratory status and oxygen requirements I spent time reviewing and interpreting data from bedside monitors, laboratory results, and imaging, I spent time discussing the management of this critically ill patient with consultants and the medical staff and I spent time documenting in the medical record us Suman STONER IN CLINIC/BEDSIDE ORDER JUAN A Final Result * POCT glucose (05/19/2025 3:14 PM CDT) Glucose, POC 85 70 - 199 mg/dL Blood 05/19/2025 3:14 PM CDT 05/19/2025 3:14 PM CDT us Viviana Mattson DO LAB POCT ORDERABLES - [place] [address] [facility] Department [place] [address] * CT Chest Abdomen Pelvis W Contrast (05/19/2025 2:20 PM CDT) Anatomical Region Laterality Modality Body N/A Computed Tomogra phy 05/19/2025 2:51 PM CDT Impressions 05/19/2025 2:51 PM CDT 1. No acute thoracic findings. 2. Cystic lesion in the right kidney with apparent thin enhancing septation. Suggest MRI of the kidneys for further evaluation. 3. Small hiatal hernia. 4. Diffuse hepatic steatosis. 5. Chronic findings as above. Electronically signed by: Jeramie Hammond II, D.O. Narrative 05/19/2025 2:51 PM CDT EXAMINATION: CT CHEST ABDOMEN PELVIS W CONTRAST DATE: 05/19/2025 2:15 PM HISTORY: Sepsis. COMPARISON: 04/21/2025. TECHNIQUE: Transaxial computed tomographic images of the chest, abdomen and pelvis were obtained after the administration of 91 mL of Optiray 350 intravenously. Multiplanar coronal and sagittal images were reformatted. FINDINGS: Chest: Lung bases are unremarkable. Calcified granulomas in the lung parenchyma. Thyroid is unremarkable. No mediastinal or hilar lymphadenopathy. No pericardial effusion. Small hiatal hernia. No acute osseous abnormality. Healed left-sided rib fractures. Mild multilevel endplate changes in the visualized spine. Abdomen and pelvis: Small hiatal hernia. Diffuse hepatic steatosis. Calcified granuloma in the spleen. The gallbladder, pancreas, and stomach are unremarkable. Adrenal glands are unremarkable. There is a 2.1 cm cystic lesion in the right kidney with apparent enhancing septation, series 2 image 127. Left kidney is unremarkable. No hydroureteronephrosis. Bladder is unremarkable. Prostate normal in appearance. There is a small fat-containing right inguinal hernia. No free fluid in the pelvis. The colon is unremarkable. No evidence of appendicitis. Small bowel is unremarkable. Mild atherosclerotic calcifications in the aorta and branch vessels. No acute osseous abnormality. No suspicious lytic or sclerotic lesions. Multilevel intervertebral disc disease appears most significant at L5-S1. Procedure Note Jeramie Hammond II, DO - 05/19/2025 EXAMINATION: CT CHEST ABDOMEN PELVIS W CONTRAST DATE: 05/19/2025 2:15 PM HISTORY: Sepsis. COMPARISON: 04/21/2025. TECHNIQUE: Transaxial computed tomographic images of the chest, abdomen and pelvis were obtained after the administration of 91 mL of Optiray 350 intravenously. Multiplanar coronal and sagittal images were reformatted. FINDINGS: Chest: Lung bases are unremarkable. Calcified granulomas in the lung parenchyma. Thyroid is unremarkable. No mediastinal or hilar lymphadenopathy. No pericardial effusion. Small hiatal hernia. No acute osseous abnormality. Healed left-sided rib fractures. Mild multilevel endplate changes in the visualized spine. Abdomen and pelvis: Small hiatal hernia. Diffuse hepatic steatosis. Calcified granuloma in the spleen. The gallbladder, pancreas, and stomach are unremarkable. Adrenal glands are unremarkable. There is a 2.1 cm cystic lesion in the right kidney with apparent enhancing septation, series 2 image 127. Left kidney is unremarkable. No hydroureteronephrosis. Bladder is unremarkable. Prostate normal in appearance. There is a small fat-containing right inguinal hernia. No free fluid in the pelvis. The colon is unremarkable. No evidence of appendicitis. Small bowel is unremarkable. Mild atherosclerotic calcifications in the aorta and branch vessels. No acute osseous abnormality. No suspicious lytic or sclerotic lesions. Multilevel intervertebral disc disease appears most significant at L5-S1. IMPRESSION: 1. No acute thoracic findings. 2. Cystic lesion in the right kidney with apparent thin enhancing septation. Suggest MRI of the kidneys for further evaluation. 3. Small hiatal hernia. 4. Diffuse hepatic steatosis. 5. Chronic findings as above. Electronically signed by: Manjit Kelsey IIOJemima Result [facility] Pernell Dueñas MD IMG CT PROCEDURES Final R esult * (ABNORMAL) Lactate (05/19/2025 1:03 PM CDT) Lactate 3.6(H) 0.7 - 2.0 mmol/L Blood 05/19/2025 1:03 PM CDT 05/19/2025 1:36 PM CDT Result [facility] Pernell Dueñas MD LAB BLOOD ORDERABLES Lanette bartholomew Result ETHAN [address] [address] Department [place] [address] * Troponin T high-sensitivity 2-hour (05/19/2025 11:15 AM CDT) Trop T hs 13 <=22 ng/L Comment: Interpretive Data For further hscTnT resources including the diagnostic algorithm and an aid in interpretation, copy and paste this link: https://nrl.testcatalog.org/show/hsTrop Current Interpretive Data last revised 2020. Trop T hs delta 1 ng/L ETHAN STAHL Trop T hs interp Insignificant ETHAN STAHL Blood 05/19/2025 11:1 5 AM CDT 05/19/2025 11:20 AM CDT Pernell Dueñas MD LAB BLOOD ORDERABLES Lanette l Result Performing Organization Address City/[facility]/ZIP Co de Phone Number ETHAN [id number] [address] Department [place] [address] * (ABNORMAL) Urinalysis reflex to microscopic and culture Urine (05/19/2025 11:15 AM CDT) Color, ur Yellow Yellow Clarity, ur Clear Clear [facility] CH Specific gravity, ur 1.009 1.003 - 1.030 [facility] CH pH, urine [...] tendency for uric acid stone formation. Source: [facility] [place] Current Interpretive Data was last revised on 2017 Protein, ur ql 2+(A) Negative [facility] CH Glucose, ur ql Negative Negative [facility] CH Ketones, ur 2+(A) Negative [facility] CH Bilirubin, ur Negative Negative [facility] CH Blood, ur 2+(A) Negative [facility] CH Urobilinogen, ur <2.0 <2.0 mg/dL [facility] Nitrite, ur Negative Negative [facility] CH Leukocyte esterase, ur Negative Negative [facility] CH UA reflex comment Reflex to microscopic UA will be performed. [facility] Urine 05/19/2025 11:1 5 AM CDT 05/19/2025 11:18 AM CDT Pernell Dueñas MD LAB MICROBIOLOGY - GENERA L ORDERABLES Final Result ETHAN [address] [address] Department [place] [address] * (ABNORMAL) Drugs of Abuse Screen, Urine without Confirmation (05/19/2025 11:15 AM CDT) Amphetamine, ur Not Detected CutOff 500ng/mL Comment: Interpretive Data - Amphetamines: Samples containing greater than 500 ng/mL d-methamphetamine or other cross-reacting amphetamine compounds are reported as positive. Amphetamine immunoassays are subject to significant false positive rates due to cross-reactivity of non-amphetamine drugs. Confirmatory testing required for definitive results. Current Interpretive Data was last reviewed 2023. Barbiturates, ur Not Detected CutOff 200ng/[facility] Comment: Interpretive Data - Barbiturates: Samples containing greater than 200 ng/mL secobarbital or other cross-reacting barbiturate compounds are reported as positive. False positive and false negative results are possible. Confirmatory testing required for definitive results. Current Interpretive Data was last reviewed 2023. Benzodiazepines, ur Screen Positive, presumptive (A) CutOff 100ng/mL [facility] Comment: Interpretive Data - Benzodiazepines: Samples containing greater than 100 ng/mL nordiazepam or other cross-reacting compounds are reported as positive. False positive and false negative results are possible. Confirmatory testing required for definitive results. Current Interpretive Data was last reviewed 2023. Cannabinoids, ur Screen Positive, presumptive (A) CutOff 50 ng/mL [facility] Comment: Interpretive Data - Cannabinoids: Samples containing greater than 50 ng/mL delta-9 THC -COOH or other cross- reacting compounds are reported as positive. False positive and false negative results are possible. Confirmatory testing required for definitive results. Current Interpretive Data was last reviewed 2023. Cocaine, ur Not Detected CutOff 150ng/mL [facility] Comment: Interpretive Data - Cocaine: Samples containing greater than 150 ng/mL benzoylecgonine or other cross- reacting compounds are reported as positive. False positive and false negative results are possible. Confirmatory testing required for definitive results. Current Interpretive Data was last reviewed 2023. Fentanyl, Ur Not Detected CutOff 5 ng/mL [facility] Comment: Interpretive Data - Fentanyl: Samples containing greater than 5 ng/mL norfentanyl, fentanyl, or other cross-reacting fentanyl compounds are reported as positive. False positive and false negative results are possible. Confirmatory testing required for definitive results. Current Interpretive Data was last reviewed 2023. Methadone, ur Not Detected CutOff 300ng/mL [facility] Comment: Interpretive Data - Methadone: Samples containing [...] Data was last reviewed 2023. Urine Creatinine 86 mg/dL ETHAN Comment: Interpretive Data Urine Creatinine: < 10 mg/dL is extremely dilute = or > 10 but < 20 mg/dL is dilute = or > 20 mg/dL is normal Current Interpretive Data was last revised on 2017. Urine 05/19/2025 11:1 5 AM CDT 05/19/2025 11:19 AM CDT Narrative ETHAN - 05/19/2025 11:53 AM CDT Drug of Abuse screening is performed by immunoassay for medical purposes only. This is not to be used for Pain Management purposes. Pernell Dueñas MD LAB URINE ORDERABLES Lanette bartholomew Result ETHAN [address] Department [place] [address] * (ABNORMAL) Urinalysis, microscopic only (05/19/2025 11:15 AM CDT) WBC, ur 0-5 0 - 5 /HPF RBC, ur 0-2 0 - 2 /HPF [facility] Bacteria, ur Trace(A) [facility] Mucous, ur Present(A) [facility] Culture Reflex Comment Reflex conditions for urine culture (WBC >10) not met. [facility] Urine 05/19/2025 11:1 5 AM CDT 05/19/2025 11:18 AM CDT Pernell Dueañs MD LAB URINE ORDERABLES Lanette l Result Performing Organization Address [facility] Co de Phone Number ETHAN STAHL [address] Department [place] [address] * Troponin T high-sensitivity series (baseline, 2hr, 4hr, 6hr) (05/19/2025 8:42 AM CDT) Pathologist [facility] [place] Trop T hs 12 <=22 ng/L Comment: Interpretive Data For further hscTnT resources including the diagnostic algorithm and an aid in interpretation, copy and paste this link: https://nrl.testcatalog.org/show/hsTrop Current Interpretive Data last revised 2020. Blood 05/19/2025 8:42 AM CDT 05/19/2025 8:47 AM CDT Pernell Dueñas MD LAB BLOOD ORDERABLES Edit ed Result - Final Performing Organization Address [facility] Co de Phone Number [facility] [address] Department [place] [address] * eGFR (05/19/2025 8:42 AM CDT) eGFR >90 >=60 mL/min/1. 73 [...] interpretive data was last reviewed 2021. Blood 05/19/2025 8:42 AM CDT 05/19/2025 8:47 AM CDT us Pernell Dueñas MD LAB BLOOD ORDERABLES Lanette bartholomew Result ETHAN [address] [address] Department [place] [address] * (ABNORMAL) Differential, auto (05/19/2025 8:42 AM CDT) Neutrophil abs 9.19(H) 1.50 - 6.50 K/cumm Imm gran abs 0.05 0.00 - 0.10 K/cumm [facility] Lymphocyte abs 2.50 0.80 - 3.30 K/cumm [facility] Monocyte abs 1.38(H) 0.20 - 0.80 K/cumm [facility] Eosinophil abs 0.02 0.00 - 0.50 K/cumm [facility] Basophil abs 0.07 0.00 - 0.10 K/cumm [facility] Neutrophil pct 69.6 % [facility] Comment: Interpretive Data Percent cell count reference ranges are not reported, since discordance with absolute values may lead to misinterpretation of CBC data. Current Interpretive Data was last revised on 2017. Imm gran pct 0.4 % ETHAN Comment: Interpretive Data Percent cell count reference ranges are not reported, since discordance with absolute values may lead to misinterpretation of CBC data. Current Interpretive Data was last revised on 2017. Lymphocyte pct 18.9 % ETHAN Comment: Interpretive Data Percent cell count reference ranges are not reported, since discordance with absolute values may lead to misinterpretation of CBC data. Current Interpretive Data was last revised on 2017. Monocyte pct 10.4 % [facility] Comment: Interpretive Data Percent cell count reference ranges are not reported, since discordance with absolute values may lead to misinterpretation of CBC data. Current Interpretive Data was last revised on 2017. Eosinophil pct 0.2 % [facility] Comment: Interpretive Data Percent cell count reference ranges are not reported, since discordance with absolute values may lead to misinterpretation of CBC data. Current Interpretive Data was last revised on 2017. Basophil pct 0.5 % [facility] Comment: Interpretive Data Percent cell count reference ranges are not reported, since discordance with absolute values may lead to misinterpretation of CBC data. Current Interpretive Data was last revised on 2017. Blood 05/19/2025 8:42 AM CDT 05/19/2025 8:48 AM CDT Pernell Dueñas MD LAB BLOOD ORDERABLES Lanette l Result Performing Organization Address [facility] Co de Phone Number [facility] [address] [place] [address] * (ABNORMAL) Beta-hydroxybutyrate (05/19/2025 8:42 AM CDT) Pathologist [facility] [place] Beta-Hydroxybut yrate 2.4(H) <=0.5 mmol/L Blood 05/19/2025 8:42 AM CDT 05/19/2025 8:47 AM CDT Pernell Dueñas MD LAB BLOOD ORDERABLES Lanette l Result Performing Organization Address City/[facility]/ZIP Co de Phone Number [facility] [address] Department [place] [address] * (ABNORMAL) CBC with auto differential (05/19/2025 8:42 AM CDT) WBC 13.21(H) 3.80 - 9.90 K/cumm Hgb 17.6(H) 13.0 - 17.5 g/dL [facility] Hct 52.4(H) 38.9 - 50.3 % [facility] Plt 250 150 - 400 K/cumm [facility] MPV 10.5 9.1 - 12.3 fL CERNER RBC 5.48 4.30 - 5.80 M/cumm [facility] MCV 95.6 81.3 - 96.4 fL [facility] MCH 32.1 27.1 - 33.3 pg CERNER MCHC 33.6 32.3 - 35.7 g/dL [facility] CH RDW CV 12.9 11.1 - 14.9 % [facility] CH RDW SD 46.3 35.7 - 48.1 fL CERNER NRBC abs 0.00 0.00 - 0.01 K/cumm [facility] Blood 05/19/2025 8:42 AM CDT 05/19/2025 8:48 AM CDT Pernell Dueñas MD LAB BLOOD ORDERABLES Lanette l Result [facility] [address] Department [place] [address] * (ABNORMAL) Comprehensive metabolic panel (05/19/2025 8:42 AM CDT) Sodium 138 135 - 145 mmol/L Potassium, pl 4.3 3.3 - 4.9 mmol/L [facility] Chloride 91(L) 97 - 110 mmol/L [facility] CH CO2 21(L) 22 - 32 mmol/L [facility] CH Anion gap 26(H) 2 - 15 mmol/L [facility] BUN 5(L) 6 - 25 mg/dL [facility] Creatinine 0.68(L) 0.80 - 1.30 mg/dL [facility] Glucose 89 70 - 199 mg/dL [facility] Comment: Interpretive Data Fasting glucose >/= 126 [...] 9.1 8.5 - 10.3 mg/dL [facility] Bilirubin, total 1.2 0.1 - 1.2 mg/dL [facility] Protein, pl 8.1 6.5 - 8.5 g/dL [facility] Albumin 4.6 3.5 - 5.0 g/dL [facility] Alk phos 85 40 - 130 Units/L [facility] ALT 27 7 - 55 Units/L [facility] AST 49 10 - 50 Units/L [facility] Blood 05/19/2025 8:42 AM CDT 05/19/2025 8:47 AM CDT Pernell Dueñas MD LAB BLOOD ORDERABLES Lanette l Result Performing Organization Address City/[facility]/ZIP Co de Phone Number ETHAN STAHL [address] [address] Department of Laboratories [place], [place] [id number] * (ABNORMAL) Sepsis Lactate w/ Reflex (05/19/2025 8:41 AM CDT) Sepsis Lactate 4.6(C) 0.7 - 2.0 mmol/L Comment:Critical result call ed to and read back by Nikki Chopra on 05/19/2025 10:17:05 CDT to Mirta Dave. Blood 05/19/2025 8:41 AM CDT 05/19/2025 10:04 AM CDT us Pernell Dueñas MD LAB BLOOD ORDERABLES Lanette l Result ETHAN STAHL [address] [address] Department of Laboratories [place], [place] [id number] * ECG 12 lead (05/19/2025 8:28 AM CDT) 05/19/2025 8:28 AM CDT Narrative [facility] - 05/19/2025 11:44 AM CDT Vent Rate: 133 bpm RR Interval: 451 msec MD Interval: 138 msec QRS Duration: 81 msec QT Interval: 294 msec QTC Interval: 372 msec P-R-T [place]: 63 - 72 - 60 degrees IMPRESSION: SINUS TACHYCARDIA ABNORMAL RHYTHM ECG NO CHANGE FROM PREVIOUS TRACING NOTED Electronically Signed By: Mark Buchanan MD Pernell Dueñas MD ECG ORDERABLES Final Res ult [facility] from Last 3 Months Insurance IN [facility] OFFICE COMM CARE IN [facility] * Guarantor: Bryce Sandhu Account Type Relation to Patient Date of Phone Billing Address Personal/Family Self 1970 [address] [address] Advance Directives For more information, please contact: [phone] * Full Code (Latest Code Status on File) Date Activated Date Inactivated Comments 08/09/2025 4:09 AM 08/11/2025 2:06 PM * Full Code Date Activated Date Inactivated Comments 07/15/2025 10:48 PM 07/18/2025 5:11 PM * Full Code Date Activated Date Inactivated Comments 05/19/2025 10:32 PM 05/26/2025 6:07 PM * Full Code Date Activated Date Inactivated Comments 04/27/2025 9:29 AM 04/29/2025 10:28 PM * Full Code Date Activated Date Inactivated Comments 04/22/2025 1:10 AM 04/25/2025 7:00 PM Healthcare Agents on File Name Relationship Healthcare Agent Relationshi p Communication Bonnie Sandhu Mother Health Care Agent Care Teams [employer] Relationship Specialty Start Date End Date Weston Mantilla DO PCP - General Family Medicine 09/03/23 Kimberli Collins DPM [address] [place] [address] Consulting Physician Foot and Ankle Surg 09/14/23
--- NOTE | 2025-08-12 11:38 | PC.NURSE ---
Unable to obtain blood after attempting to stick X2
--- NOTE | 2025-08-12 11:44 | ED_ITS ---
HPI - Alcohol General Chief Complaint: Alcohol <Idalmis Ritchie PA-C - Last Filed: 08/12/25 11:46> Stated Complaint: etoh detox <Idalmis Ritchie PA-C - Last Filed: 08/12/25 11:46> Time Seen by Provider: 08/12/25 11:35 <Idalmis Ritchie PA-C - Last Filed: 08/12/25 11:46> Focused HPI: Patient is a 55-year-old male who presents the ED via EMS with concern for alcohol withdrawal/detox. Patient reports he has been a heavy drinker for the past 30 years. Drinks up to a 5th of vodka a day. States he last drank yesterday. Is interested in detox and rehab. Does have history of withdrawal symptoms in seizures. States he feels very shaky, tremulous, anxious, diaphoretic currently. Reports some chest discomfort, palpitations. Denies shortness of breath, abdominal pain. GENERAL: Anxious/tremulous-appearing, well-nourished, and in no acute distress. HEAD: Normocephalic, atraumatic. CHEST: Clear to auscultation. ?No respiratory distress. HEART: Mildly tachycardic with regular rhythm.? NEURO: ?Alert and oriented x3. Patient screened in triage and initial orders placed.? ?Additional care and disposition to be based upon?diagnostic testing and treatment. <Idalmis Ritchie PA-C - Last Filed: 08/12/25 11:46> Source: patient <Idalmis Ritchie PA-C - Last Filed: 08/12/25 11:46> Mode of arrival: EMS <EZ Newell Last Filed: 08/12/25 11:46> Limitations: no limitations <Idalmis Ritchie PA-C - Last Filed: 08/12/25 11:46> History of Present Illness HPI narrative: I agree with the above HPI Patient states he had been sober for 2 years but in last 2 years she has only been sober for about 6 months and that was approximately 9 months ago. Patient reports that he last drink yesterday and that he drinks up to a 5th of vodka daily. Patient does have history of alcohol withdrawal seizures. Patient is tearful and tremulous in the emergency department. <John Avila MD - Last Filed: 08/12/25 19:08> Related Data Home Medications: Home Medications ?Medication ?Instructions ?Recorded ?Confirmed ?Last Taken ?Type quetiapine 400 mg tablet 400 mg PO HS 06/12/1907/21/24 History omeprazole 20 mg capsule,delayed 20 mg PO DAILY 01/21/25 Unknown History release lisinopril 20 mg tablet 20 mg PO DAILY 10/03/2001/11 Unknown History trazodone 100 mg tablet 100 mg PO HS 07/22/2407/21/24 History <Idalmis Ritchie PA-C - Last Filed: 08/12/25 11:46> Allergies/Adverse Reactions: Allergies Allergy/AdvReac Type Severity Reaction Status Date / Time Penicillins Allergy Unknown hive Verified 08/12/25 11:21 <Idalmis Ritchie PA-C - Last Filed: 08/12/25 11:46> Review of Systems 2 Review of Systems: All systems reviewed & are unremarkable except as noted in HPI and below <John Avila MD - Last Filed: 08/12/25 19:08> [facility] Past Medical History Medical History: Medical History (Updated 08/12/25 @ 15:36 by John Avila MD) Obstructive sleep apnea Intolerant to CPAP Nicotine use Posttraumatic stress disorder Essential hypertension Depression Anxiety Alcohol withdrawal seizure Seasonal allergies <Idalmis Ritchie PA-C - Last Filed: 08/12/25 11:46> Surgical History Surgical History: Surgical History History of surgical removal of ganglion cyst Right wrist. History of tonsillectomy and adenoidectomy History of umbilical hernia repair History of appendectomy History of tonsillectomy <Idalmis Ritchie PA-C - Last Filed: 08/12/25 11:46> Family History Family History: Family History Father Heart disease Mother Heart disease <Idalmis Ritchie PA-C - Last Filed: 08/12/25 11:46> Social History Social History: Social History (Updated 01/21/25 @ 07:52 by Tawana Du DO) Social History: Patient reports that he lives in his own apartment. He is on disability due to his PTSD. He still drinks alcohol heavily and is still a smoker. Surrogate medical decision maker: Bonnie Sandhu, mother. Code status: Full code. Smoking packs per day: 1 Smoking cigarettes per day: 20.0 Years smoked: 25 Smoking pack-years: 25.00 Smoking status: Former smoker Tobacco type: cigarettes Smokeless tobacco user: chewing tobacco Second hand tobacco smoke exposure: Yes Smoking end date: 08/13/16 Alcohol intake: current Drinks per week: 140 Alcohol use details: 1/5 of vodka a day Substance use: current Substance use type: marijuana Lack of Transportation: No Lack of Food: Never True Current Housing: I Have Housing Concerned About Future Housing: No Difficulty Paying Gas/Electric Bills: No Difficulty Paying for Meds: No Currently Unemployed: No Education: Trade/Vocational Certificate Difficulty w/ Childcare or Family Care: No Additional living arrangements comments: Lives in [place]. 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 He is now on 90% disability through the [employer]. Spiritual care concerns: No <Idalmis Ritchie PA-C - Last Filed: 08/12/25 11:46> Exam 2 Narrative: APPEARANCE: Anxious affect HEAD: normocephalic, atraumatic. EYES: PERRLA/EOMI, conjunctivae clear. NOSE: Normal no drainage EARS:TMS clear with good light reflex. THROAT: Pharynx clear, no exudate. NECK: Supple. No adenopathy, no masses. RESPIRATORY: Airway patent, respirations nonlabored. Clear to auscultation bilaterally, no rales, rhonchi, wheezing. CARDIOVASCULAR: Regular rate and rhythm without murmurs rubs or gallops. ABDOMINAL: Soft, nontender, nondistended, normal bowel sounds MUSCULOSKELETAL: Moves all extremities. Strength/ROM intact, No edema, No calf tenderness. NEURO: Alert. Cranial nerves II through XII intact. Good gait. Good coordination SKIN: Diaphoretic <John Avila MD - Last Filed: 08/12/25 19:08> Course Vital Signs Vital signs: Vital Signs Temperature 98.6 F 08/12/25 11:20 Pulse Rate 107 H 08/12/25 11:20 Respiratory Rate 20 08/12/25 11:20 Blood Pressure 130/93 H 08/12/25 11:20 Pulse Oximetry 100 08/12/25 11:20 Oxygen Delivery Room Air 08/12/25 11:20 Temperature 98.6 F 08/12/25 11:20 Pulse Rate 85 08/12/25 15:54 Respiratory Rate 18 08/12/25 15:54 Blood Pressure 138/85 08/12/25 15:54 Pulse Oximetry 100 08/12/25 15:54 Oxygen Delivery Room Air 08/12/25 11:20 <Idalmis Ritchie PA-C - Last Filed: 08/12/25 11:46> Vital Signs Temperature 98.6 F 08/12/25 11:20 Pulse Rate 107 H 08/12/25 11:20 Respiratory Rate 20 08/12/25 11:20 Blood Pressure 130/93 H 08/12/25 11:20 Pulse Oximetry 100 08/12/25 11:20 Oxygen Delivery Room Air 08/12/25 11:20 Temperature 98.6 F 08/12/25 11:20 Pulse Rate 85 08/12/25 15:54 Respiratory Rate 18 08/12/25 15:54 Blood Pressure 138/85 08/12/25 15:54 Pulse Oximetry 100 08/12/25 15:54 Oxygen Delivery Room Air 08/12/25 11:20 <John Avila MD - Last Filed: 08/12/25 19:08> [facility] MDM Narrative Medical decision making narrative: MSE by LUIS in triage <Idalmis Ritchie PA-C - Last Filed: 08/12/25 11:46> MSE by LUIS in triage 55-year-old male with history of alcohol withdrawal presents emergency department for evaluation for alcohol withdrawal symptoms. Patient states he quit drinking yesterday. Patient's blood alcohol was 270. Patient was anxious and tearful upon arrival. Patient was treated with 50 of Librium in on re- evaluation patient is well-appearing. Patient was able to ambulate. Patient is willing to attempt a Librium and see if this helps his refraining from alcohol. Patient was strongly encouraged to continue to follow up with a actual detox center and to follow up with the rehab center. All questions concerns were addressed patient was well-appearing at time of discharge. <John Avila MD - Last Filed: 08/12/25 19:08> Differential Diagnosis Differential Diagnosis: Alcohol withdrawal, alcoholism, Wernicke's encephalopathy <John Avila MD - Last Filed: 08/12/25 19:08> Lab Data MDM Lab Attestation statement: I personally reviewed the patient's lab results. <John Avila MD - Last Filed: 08/12/25 19:08> Result diagrams: 08/12/25 12:07 08/12/25 12:07 <Idalmis Ritchie PA-C - Last Filed: 08/12/25 11:46> Labs: Lab Results 08/12/25 08/12/25 Range/Units 12:07 12:07 WBC 9.2 (4.5-10.0) K/mm3 RBC 5.19 (4.6-6.20) M/mm3 Hgb 15.9 (14.0-18.0) g/dL Hct 48.7 (42.0-52.0) % MCV 93.8 (80-100) fl MCH 30.6 (26-34) pg MCHC 32.6 (32-36) g/dl RDW 14.5 (11.5-14.5) % Plt Count 378 H (150-375) k/mm3 MPV 9.8 (7.4-10.4) fl Immature Gran % (Auto) 0.8 H (0-0.5) % Neut % (Auto) 47.7 (45.5-73.1) % Lymph % (Auto) 37.4 (18.3-44.2) % [place] % (Auto) 9.0 H (2.6-8.5) % Eos % (Auto) 4.3 (0-4.4) % Baso % (Auto) 0.8 (0.2-1.2) % Lymph # (Auto) 3.45 H (0.9-3.2) K/mm3 [place] # (Auto) 0.8 H (0.1-0.6) K/mm3 Eos # (Auto) 0.4 H (0-0.3) K/mm3 Baso # (Auto) 0.1 (0.0-0.1) K/mm3 Abs Immat Gran (auto) 0.07 H (0.00-0.031) K/mm3 Absolute Neuts (auto) 4.4 (1.3-6.7) K/mm3 Absolute Nucleated RBC 0.000 (0.0-0.012) K/mm3 Nucleated RBC % 0.0 (0.0-0.2) % PT 12.2 (11.1-14.7) Seconds INR 0.9 APTT 21.6 L (22.3-36.8) Seconds Sodium 138 (137-145) mmol/L Potassium 4.2 (3.4-5.0) mmol/L Chloride 99 (98-107) mmol/L Carbon Dioxide 25 (22-30) mmol/L Anion Gap 14 H (4-12) mmol/L BUN 6 L (9-20) mg/dL Creatinine 0.76 (0.7-1.3) mg/dL Estim Creat Clear Calc 111 ml/min Estimated GFR > 60 (59 - ) Glucose 87 (65-110) mg/dL Calcium 9.7 (8.4-10.2) mg/dL Phosphorus 4.9 H (2.5-4.5) mg/dL Magnesium 1.8 (1.6-2.3) mg/dL Total Bilirubin 0.6 (0.2-1.3) mg/dL AST 36 (17-59) U/L ALT 22 (6-50) U/L Alkaline Phosphatase 69 (38-126) U/L Troponin I < 0.012 Cancelled (0.000-0.034) ng/mL Total Protein 8.4 H (6.3-8.2) g/dL Albumin 5.0 (3.5-5.1) g/dL Ethyl Alcohol 270 (<10) mg/dL <Idalmis Ritchie PA-C - Last Filed: 08/12/25 11:46> Lab Results 08/12/25 08/12/25 Range/Units 12:07 12:07 WBC 9.2 (4.5-10.0) K/mm3 RBC 5.19 (4.6-6.20) M/mm3 Hgb 15.9 (14.0-18.0) g/dL Hct 48.7 (42.0-52.0) % MCV 93.8 (80-100) fl MCH 30.6 (26-34) pg MCHC 32.6 (32-36) g/dl RDW 14.5 (11.5-14.5) % Plt Count 378 H (150-375) k/mm3 MPV 9.8 (7.4-10.4) fl Immature Gran % (Auto) 0.8 H (0-0.5) % Neut % (Auto) 47.7 (45.5-73.1) % Lymph % (Auto) 37.4 (18.3-44.2) % [place] % (Auto) 9.0 H (2.6-8.5) % Eos % (Auto) 4.3 (0-4.4) % Baso % (Auto) 0.8 (0.2-1.2) % Lymph # (Auto) 3.45 H (0.9-3.2) K/mm3 [place] # (Auto) 0.8 H (0.1-0.6) K/mm3 Eos # (Auto) 0.4 H (0-0.3) K/mm3 Baso # (Auto) 0.1 (0.0-0.1) K/mm3 Abs Immat Gran (auto) 0.07 H (0.00-0.031) K/mm3 Absolute Neuts (auto) 4.4 (1.3-6.7) K/mm3 Absolute Nucleated RBC 0.000 (0.0-0.012) K/mm3 Nucleated RBC % 0.0 (0.0-0.2) % PT 12.2 (11.1-14.7) Seconds INR 0.9 APTT 21.6 L (22.3-36.8) Seconds Sodium 138 (137-145) mmol/L Potassium 4.2 (3.4-5.0) mmol/L Chloride 99 (98-107) mmol/L Carbon Dioxide 25 (22-30) mmol/L Anion Gap 14 H (4-12) mmol/L BUN 6 L (9-20) mg/dL Creatinine 0.76 (0.7-1.3) mg/dL Estim Creat Clear Calc 111 ml/min Estimated GFR > 60 (59 - ) Glucose 87 (65-110) mg/dL Calcium 9.7 (8.4-10.2) mg/dL Phosphorus 4.9 H (2.5-4.5) mg/dL Magnesium 1.8 (1.6-2.3) mg/dL Total Bilirubin 0.6 (0.2-1.3) mg/dL AST 36 (17-59) U/L ALT 22 (6-50) U/L Alkaline Phosphatase 69 (38-126) U/L Troponin I < 0.012 Cancelled (0.000-0.034) ng/mL Total Protein 8.4 H (6.3-8.2) g/dL Albumin 5.0 (3.5-5.1) g/dL Ethyl Alcohol 270 (<10) mg/dL <John Avila MD - Last Filed: 08/12/25 19:08> Discharge Plan Discharge Clinical Impression: Alcohol withdrawal Qualifiers: Complication of substance-induced condition: uncomplicated Qualified Code(s): F 10.230 - Alcohol dependence with withdrawal, uncomplicated <Idalmis Ritchie PA-C - Last Filed: 08/12/25 11:46> Patient Disposition: Home <Idalmis Ritchie PA-C - Last Filed: 08/12/25 11:46> Condition: Stable <Idalmis Ritchie PA-C - Last Filed: 08/12/25 11:46> Instructions: Antibiotic Form, Alcohol Withdrawal (ED) <Idalmis Ritchie PA-C - Last Filed: 08/12/25 11:46> Additional Instructions: Librium as directed and as needed. Refrain from alcohol. Have close follow-up with a detox center. Have close follow-up with a substance abuse rehabilitation center. If you have any worsening symptoms then please call or return to the emergency department. <Idalmis Ritchie PA-C - Last Filed: 08/12/25 11:46> Patient Language: Persian <Idalmis Ritchie PA-C - Last Filed: 08/12/25 11:46> Prescriptions: New chlordiazepoxide HCl 25 mg capsule 25 mg PO TID PRN (Reason: alcohol withdrawal) 7 Days Qty: 21 0RF No Action quetiapine 400 mg Tablet 400 mg PO HS omeprazole 20 mg Capsule,Delayed Release(Dr/Ec) 20 mg PO DAILY thiamine HCl (vitamin B1) [Vitamin B-1] 100 mg Tablet 100 mg PO QAM Qty: 90 0RF lisinopril 20 mg tablet 20 mg PO DAILY magnesium oxide 400 mg (241.3 mg magnesium) Tablet 400 mg PO QAM Qty: 30 0RF metoprolol tartrate 25 mg Tablet 50 mg PO Q12HR Qty: 60 0RF trazodone 100 mg tablet 100 mg PO HS amlodipine 10 mg Tablet 10 mg PO DAILY Qty: 30 0RF folic acid 1 mg Tablet 1 mg PO DAILY Qty: 30 0RF chlordiazepoxide HCl 25 mg capsule 25 mg PO TID PRN (Reason: alcohol withdrawal) Qty: 24 0RF Rx Instructions: take 2 tab three times daily x 2 days then 1 tab three times daily x 2 days then 1 tab twice daily x 2 days then 1 tab daily x 2 days then stop <Idalmis Ritchie PA-C - Last Filed: 08/12/25 11:46> Follow-up/Referrals: [facility] [Primary Care Provider, Medical] <Idalmis Ritchie PA-C - Last Filed: 08/12/25 11:46>
--- NOTE | 2025-08-12 11:47 | PC.NURSE ---
Hi from vascular access called for blood work and IV access
[2025-08-12 12:16] LABS: Hematocrit 48.7 % (42.0-52.0); Hemoglobin 15.9 g/dL (14.0-18.0); Immature Granulocyte Percent A 0.8 % (0-0.5); Lymphocytes Absolute Auto 3.45 K/mm3 (0.9-3.2); Mean Corpuscular HGB Conc 32.6 g/dl (32-36); Mean Corpuscular Hemoglobin 30.6 pg (26-34); Mean Corpuscular Volume 93.8 fl (80-100); Nucleated Red Blood Cells Absolute Auto 0.000 K/mm3 (0.0-0.012); Nucleated Red Blood Cells Perc 0.0 % (0.0-0.2); Platelet Count Result 378 k/mm3 (150-375); Red Blood Count 5.19 M/mm3 (4.6-6.20); White Blood Count 9.2 K/mm3 (4.5-10.0)
[2025-08-12 12:27] LABS: INR 0.9; Prothrombin Time 12.2 Seconds (11.1-14.7)
[2025-08-12 12:28] LABS: Partial Thromboplastin Time 21.6 Seconds (22.3-36.8)
[2025-08-12 12:32] LABS: Alanine Aminotransferase 22 U/L (6-50); Albumin Level 5.0 g/dL (3.5-5.1); Alkaline Phosphatase 69 U/L (38-126); Anion Gap 14 mmol/L (4-12); Aspartate Amino Transferase 36 U/L (17-59); Bilirubin,Total 0.6 mg/dL (0.2-1.3); Blood Urea Nitrogen 6 mg/dL (9-20); Calcium 9.7 mg/dL (8.4-10.2); Carbon Dioxide 25 mmol/L (22-30); Chloride 99 mmol/L (98-107); Estimated CRCL calculation 111 ml/min; Estimated Glomerular Filt Rate > 60; Glucose 87 mg/dL (65-110); Magnesium 1.8 mg/dL (1.6-2.3); Potassium 4.2 mmol/L (3.4-5.0); Sodium 138 mmol/L (137-145); Total Protein 8.4 g/dL (6.3-8.2)
[2025-08-12 12:39] LABS: Troponin I < 0.012 ng/mL (0.000-0.034)
[2025-08-12 13:06] VITALS: BP 140/83; PULSE 92; RESP 18; O2SAT 99
[2025-08-12] MEDS: THIAMINE HCL 200 MG/2 ML VIAL 100 MG IV PUSH (13:30)
--- NOTE | 2025-08-12 13:48 | PC.NURSE ---
patient sleeping comfortably while giving thiamine IV, patient asked if he was going to get anything for the shakes no notable tremors present.
[2025-08-12] MEDS: chlordiazePOXIDE (*CRX) 25 MG CAPSULE 50 MG PO (14:05)
[2025-08-12] MEDS: LACTATED RINGERS 1,000 ML 999 ML IV CONT (14:27)
[2025-08-12 15:54] VITALS: BP 138/85; PULSE 85; RESP 18; O2SAT 100
== END 2025-08-12 15:55 | disposition home or self-care (01) ==
PROVIDERS: Physician Assistant; Emergency Provider Emergency Medicine
DX: F10.230 Alcohol dependence with withdrawal, uncomplicated (principal); Y90.8 Blood alcohol level of 240 mg/100 ml or more; G47.33 Obstructive sleep apnea (adult) (pediatric); I10 Essential (primary) hypertension; Z87.891 Personal history of nicotine dependence
CPT/HCPCS: 36415; 80053; 82077; 83735; 84100; 84484; 85025; 85610; 85730; 93005; 96361; 96374; 99284; A9270; J3411; J7120